=== PATIENT | female | born 1965 | race Caucasian/White ===

== ENCOUNTER 2017-07-27 13:22 | Inpatient (IN) | payer SELFPAY ==
[2017-07-27] VITALS (14 sets, daily range): BP systolic 125–278; BP diastolic 66–150; PULSE 75–102; RESP 18–24; TEMP 97.7–98.7; O2SAT 94–98
[~2017-07-27] VITALS: Ht 165.1 cm; Wt 114.0 kg
[~2017-07-27 13:22] MED LIST: CIPR500T2 PO; GLUC1000 PO; HYDR-3533 PO; LISI-366 PO; METH750T2 PO; TRAM50TA PO; ZOFR4TAB3 SL
[2017-07-27] MEDS ORDERED: SODIUM CHLOR 0.9% 1000 ML INJ 1,000 ML IV SCH ×2 (13:47→18:16)
[2017-07-27] MEDS ORDERED: ONDANSETRON HCL 4 MG/2 ML VIAL IVP ONE (14:00)
--- NOTE | 2017-07-27 14:07 | PD ---
HPI Chief Complaint: Pain: Acute or Chronic Time Seen by Provider: 13:39 Travel History International Travel<30 days: No Contact w/Intl Traveler<30days: No Traveled to known affect area: No History of Present Illness HPI This is a 52-year-old female who presents to the emergency department having had onset of severe nausea and vomiting 11 PM last night associated with pain and discomfort in her chest and epigastrium, constant, moderate severity, nonradiating. The patient denies headache. She denies fevers or chills. She' s never had symptoms like this before. She says she was vomiting this morning when she woke up and dry heaving. PFSH Past Medical History Cardiovascular Problems: Yes (HTN) Diabetes: Yes Patient Takes Glucophage: No Diminished Hearing: No Hypertension: Yes ?: Not Tubal Ligation: Yes Past Surgical History Section: Yes Cholecystectomy: Yes Other Surgery: Yes (BOTH UNDERARMS HX BOILS) Social History Alcohol Use: Yes (socially mix drinks, beer or wine) Tobacco Use: Yes (1 PPD) Substance Use: No Allergies-Medications (Allergen,Severity, Reaction): Coded Allergies: cephalexin (Unverified Allergy, Severe, 06/30/17) Reported Meds & Prescriptions Reported Meds & Active Scripts Active No Active Prescriptions or Reported Medications Review of Systems Except as stated in HPI: all other systems reviewed are Neg Physical Exam Narrative GENERAL: Pale, ill-appearing SKIN: Focused skin assessment warm and dry. HEAD: Atraumatic. Normocephalic. EYES: Pupils equal and round. No injection or drainage. ENT: Moist mucous membranes NECK: Trachea midline. CARDIOVASCULAR: Regular rate and rhythm. No murmur appreciated. RESPIRATORY: Clear to auscultation. Breath sounds equal bilaterally. GASTROINTESTINAL: Abdomen soft, tender to palpation in the epigastrium and right upper quadrant. MUSCULOSKELETAL: No obvious deformities. NEUROLOGICAL: Awake and alert. No obvious cranial nerve deficits. Moving all extremities. PSYCHIATRIC: Appropriate mood and affect; insight and judgment normal. Data Data Last Documented VS Vital Signs Date Time Temp Pulse Resp B/P (MAP) Pulse Ox O2 Delivery O2 Flow Rate FiO2 07/27/17 16:30 183/77 (112) 07/27/17 16:13 82 07/27/17 13:26 98.7 24 98 Orders Orders Complete Blood Count With Diff (07/27/17 13:47) Comprehensive Metabolic Panel (07/27/17 13:47) Lipase (07/27/17 13:47) Lactic Acid (07/27/17 13:47) Urinalysis - C+S If Indicated (07/27/17 13:47) Iv Access Insert/Monitor (07/27/17 13:47) Ecg Monitoring (07/27/17 13:47) Oximetry (07/27/17 13:47) Ondansetron Inj (Zofran Inj) (07/27/17 14:00) Sodium Chlor 0.9% 1000 Ml Inj (Ns 1000 M (07/27/17 13:47) Sodium Chloride 0.9% Flush (Ns Flush) (07/27/17 14:00) Ed Urine Pregnancytest Poc (07/27/17 13:47) Troponin I (07/27/17 13:47) Electrocardiogram (07/27/17 ) Labetalol Inj (Trandate Inj) (07/27/17 14:15) Promethazine Inj (Phenergan Inj) (07/27/17 14:30) Hydralazine Inj (Apresoline Inj) (07/27/17 15:30) Ondansetron Inj (Zofran Inj) (07/27/17 15:30) Morphine Inj (Morphine Inj) (07/27/17 15:45) Chest, Single Ap (07/27/17 ) Aspirin Chew (Aspirin Chew) (07/27/17 16:00) Nitroglycerin-D5w 50 Mg/250 Ml (Nitrogly (07/27/17 15:57) Magnesium (Mg) (07/27/17 15:57) Prothrombin Time / Inr (Pt) (07/27/17 15:57) Act Partial Throm Time (Ptt) (07/27/17 15:57) B-Type Natriuretic Peptide (07/27/17 15:57) Oxygen Administration (07/27/17 15:57) Sodium Chlor 0.9% 1000 Ml Inj (Ns 1000 M (07/27/17 15:57) Sodium Chloride 0.9% Flush (Ns Flush) (07/27/17 16:00) Nitroglycerin Sl (Nitrostat Sl) (07/27/17 15:57) Nitroglycerin-D5w 50 Mg/250 Ml (Nitrogly (07/27/17 16:00) Heparin Inj (Heparin Inj) (07/27/17 15:57) Consult Nephrology (07/27/17 ) Admit Order (Ed Use Only) (07/27/17 16:32) Labs Laboratory Tests Test 07/27/17 14:00 07/27/17 14:20 White Blood Count 13.5 TH/MM3 Red Blood Count 4.71 MIL/MM3 Hemoglobin 13.7 GM/DL Hematocrit 40.3 % Mean Corpuscular Volume 85.6 FL Mean Corpuscular Hemoglobin 29.1 PG Mean Corpuscular Hemoglobin Concent 34.1 % Red Cell Distribution Width 14.5 % Platelet Count 191 TH/MM3 Mean Platelet Volume 9.9 FL Neutrophils (%) (Auto) 83.5 % Lymphocytes (%) (Auto) 9.3 % Monocytes (%) (Auto) 5.6 % Eosinophils (%) (Auto) 0.8 % Basophils (%) (Auto) 0.8 % Neutrophils # (Auto) 11.2 TH/MM3 Lymphocytes # (Auto) 1.2 TH/MM3 Monocytes # (Auto) 0.8 TH/MM3 Eosinophils # (Auto) 0.1 TH/MM3 Basophils # (Auto) 0.1 TH/MM3 CBC Comment AUTO DIFF Differential Comment AUTO DIFF CONFIRMED Blood Urea Nitrogen 45 MG/DL Creatinine 3.06 MG/DL Random Glucose 216 MG/DL Total Protein 7.2 GM/DL Albumin 3.1 GM/DL Calcium Level 10.5 MG/DL Alkaline Phosphatase 94 U/L Aspartate Amino Transf (AST/SGOT) 15 U/L Alanine Aminotransferase (ALT/SGPT) 15 U/L Total Bilirubin 0.5 MG/DL Sodium Level 133 MEQ/L Potassium Level 4.5 MEQ/L Chloride Level 103 MEQ/L Carbon Dioxide Level 18.5 MEQ/L Anion Gap 12 MEQ/L Estimat Glomerular Filtration Rate 16 ML/MIN Troponin I 1.03 NG/ML Lipase 212 U/L Lactic Acid Level 1.3 mmol/L MDM Medical Decision Making Medical Screen Exam Complete: Yes Emergency Medical Condition: Yes Interpretation(s) Leukocytosis with 83% neutrophils BUN is 45 Creatinine is 3 Lactic acid is 1.3 Troponin is 1.0 EKG: Initial EKG demonstrates T-wave inversions in the lateral leads with borderline [address] elevation in V1 and V2 not meeting criteria for STEMI Repeat EKG demonstrates [address] elevation in lead V2 and 1 mm in V3 with biphasic T waves concerning for dynamic changes and ongoing ischemia Differential Diagnosis Gastritis, gastroenteritis, myocardial infarction, aortic dissection Narrative Course This is a 52-year-old female who presents to the emergency department with vomiting and chest pain. She is ill-appearing on arrival. Initial EKG demonstrated some ischemia but no STEMI criteria. She was found to have markedly elevated blood pressure with a systolic of 278 and a map of 192. She was treated with 20 mg of IV labetalol, 10 mg of IV hydralazine, Zofran and Phenergan. Labs are obtained which demonstrated a troponin of 1 and renal insufficiency which appears at least partially acute with an elevated BUN. An EKG was repeated at the time of troponin results and at that time demonstrated dynamic EKG changes. I spoke to Dr. Scott who requested I call a STEMI alert and activate the [facility] [employer]. Dr. Scott came to see the patient in the emergency department. Patient was given aspirin, heparin, started on a nitro drip and given morphine. She was transferred to the [facility]. I discussed with Dr. Don the management of this patient. Critical Care Narrative Aggregate critical care time was 45 minutes. Time to perform other separately billable procedures was not included in the critical care time. My time did not include minutes spent treating any other patients simultaneously or on activities that did not directly contribute to the patient's treatment. The services I provided to this patient were to treat and/or prevent clinically significant deterioration that could result in: disability, I provided critical care services requiring my management, as noted below: Chart data review, documentation time, medication orders and management, vital sign assessments/reviewing monitor data, ordering and reviewing lab tests, ordering and interpreting/reviewing x-rays and diagnostic studies, care of the patient and discussion of the patient with the admitting physicians. Physician Communication Physician Communication Discussed with Dr. Scott and Dr. Don Diagnosis Primary Impression: STEMI (ST elevation myocardial infarction) Qualified Codes: I21.3 - ST elevation (STEMI) myocardial infarction of unspecified site Admitting Information Admitting Physician Requests: Admit Scripts No Active Prescriptions or Reported Meds Jazmín Fu MD Jul 27, 2017 14:07
[2017-07-27] MEDS ORDERED: LABETALOL HCL 100 MG/20 ML VIAL IV PUSH ONE (14:15)
[2017-07-27] MEDS ORDERED: PROMETHAZINE INJ 25 MG/ML VIAL IM ONE (14:30)
[2017-07-27 15:12] LABS: AUTOMATED NEUTROPHIL # 11.2 TH/MM3 (1.8-7.7); BASOPHIL # 0.1 TH/MM3 (0-0.2); BASOPHIL % 0.8 % (0.0-2.0); EOSINOPHIL # 0.1 TH/MM3 (0-0.4); EOSINOPHIL % 0.8 % (0.0-4.0); HEMATOCRIT 40.3 % (35.0-46.0); LYMPH % 9.3 % (9.0-44.0); LYMPHOCYTE # 1.2 TH/MM3 (1.0-4.8); MEAN CELL VOLUME 85.6 FL (80.0-100.0); MEAN CORPUSCULAR HEMOGLOBIN 29.1 PG (27.0-34.0); MEAN CORPUSCULAR HGB CONC 34.1 % (32.0-36.0); MONO % 5.6 % (0.0-8.0); NEUT % 83.5 % (16.0-70.0); PLATELET COUNT 191 TH/MM3 (150-450); RED BLOOD COUNT 4.71 MIL/MM3 (4.00-5.30); RED CELL DISTRIBUTION WIDTH 14.5 % (11.6-17.2); WHITE BLOOD COUNT 13.5 TH/MM3 (4.0-11.0)
[2017-07-27 15:16] LABS: HEMO FLAGS AUTO DIFF
[2017-07-27 15:25] LABS: ANION GAP 12 MEQ/L (5-15); AST (GOT) 15 U/L (15-37); BICARBONATE 18.5 MEQ/L (21.0-32.0); BLOOD UREA NITROGEN 45 MG/DL (7-18); CHLORIDE 103 MEQ/L (98-107); GLOMERULAR FILTRATION RATE 16 ML/MIN (>89); POTASSIUM 4.5 MEQ/L (3.5-5.1); SODIUM (NA) 133 MEQ/L (136-145)
[2017-07-27 15:26] LABS: ALT (GPT) 15 U/L (10-53)
[2017-07-27] MEDS ORDERED: ONDANSETRON HCL 4 MG/2 ML VIAL IV PUSH ONE (15:30)
[2017-07-27] MEDS ORDERED: hydrALAZINE HCL 20 MG/ML VIAL IV PUSH ONE (15:30)
[2017-07-27 15:31] LABS: ALKALINE PHOSPHATASE 94 U/L (45-117); TOTAL BILIRUBIN ADULT 0.5 MG/DL (0.2-1.0)
[2017-07-27] MEDS ORDERED: MORPHINE SULFATE 4 MG/ML INJ IV PUSH ONE (15:45)
[2017-07-27] MEDS ORDERED: HEPARIN SODIUM - IV 10,000 UNITS/10 ML VIAL IV STA (15:57)
[2017-07-27] MEDS ORDERED: NITROGLYCERIN 0.4 MG SL 25 TABS/BTL SL STA (15:57)
[2017-07-27] MEDS ORDERED: NITROGLYCERIN-D5W 50 MG/250 ML 250 ML ONE (15:57)
[2017-07-27] MEDS ORDERED: SODIUM CHLOR 0.9% 1000 ML INJ 1,000 ML IV ONE (15:57)
[2017-07-27] MEDS ORDERED: SODIUM CHLORIDE 0.9% FLUSH 10 ML FLUSH IVF PRN (16:00)
[2017-07-27] MEDS ORDERED: NITROGLYCERIN-D5W 50 MG/250 ML 250 ML IV PRN (16:00)
[2017-07-27] MEDS ORDERED: ASPIRIN 81 MG CHEW TAB CHEW ONE (16:00)
[2017-07-27 16:08] LABS: SCAN/DIFF AUTO DIFF CONFIRMED
--- NOTE | 2017-07-27 16:17 | RADRPT ---
EXAM DATE/TIME: 07/27/2017 16:13 [facility] COMPARISON: No previous studies available for comparison. INDICATIONS : Stemi alert. MEDICAL HISTORY : Hypertension. SURGICAL HISTORY : None. ENCOUNTER: Initial ACUITY: 1 day PAIN SCORE: 10/10 LOCATION: Bilateral chest FINDINGS: A single view of the chest demonstrates the lungs to be symmetrically aerated without evidence of mas s, infiltrate or effusion. The cardiomediastinal contours are unremarkable. Osseous structures are intact. CONCLUSION: No acute disease. Rhett Miller MD on July 27, 2017 at 16:14 Board Certified Radiologist. This report was verified electronically.
[2017-07-27] MEDS ORDERED: IOHEXOL 350 MG/ML 100 ML BTL (for Cath Lab) OTHER ONE (16:36)
[2017-07-27] MEDS ORDERED: IOHEXOL 350 MG/ML 50 ML BTL (for Cath Lab) OTHER ONE (16:36)
[2017-07-27] MEDS ORDERED: CLOPIDOGREL 300 MG TAB ONE (17:26)
[2017-07-27] MEDS ORDERED: ASPIRIN 81 MG CHEW TAB ONE (17:26)
[2017-07-27] MEDS ORDERED: LABETALOL HCL 100 MG/20 ML VIAL ONE (17:33)
[2017-07-27] MEDS ORDERED: NIFEdipine 10 MG CAP ONE (17:35)
[2017-07-27] MEDS ORDERED: ONDANSETRON HCL 4 MG/2 ML VIAL ONE (17:37)
--- NOTE | 2017-07-27 18:09 | CATHPROC ---
[facility] HIS Report Study Information Study Number Admission Scheduled Start Study Start [id number] Jul 27 2017 1:22PM 07/27/2017 Jul 27 2017 4:37PM [place] [facility] Cardiac Catheterization Admit Source Facility Department Emergency department [facility] - Hand Spring Repairer Physician and Clinical Staff Initial Rodrigo Maciel Public Health Policy Analyst Michelle Devries,Liza Manley RN Recorder Farhad Villalobos,RT(R) Scrub Mayur Singletary RCIS(BS) Procedures Performed Procedure Location (Site) Vessel Name Coronary Angiograms LCA Left Coronary Coronary Angiograms RCA Right Coronary Drug Eluting Inflatio LAD Prox Left Coronary PTCA LAD Prox Left Coronary Wire insertion Fem Art (right) Femoral Art Equipment Time Media Supervisor Description Size Mfg Part Number Used/Scraped [id number] 17:01 [employer], [employer] ([employer].) PROWATER 180CM 180CM Used *[id number] TRANSDUCER, TRUWAVE [id number] 16:54 LOZANO TURK * Used W/STOCKCOCK *[id number] 17:13 [employer] BALLOON, 2.5 20MM EMERGE MR 2.5 20MM Used *[id number] BALLOON, 2.5 30[place] [id number] 17:26 [employer] 2.5 30MM Used QUANTUM APEX MR *[id number] 17:20 [employer] STENT, SYNERGY 2.5 X 38MM Used *[id number] 17:03 [employer] VL3.5 GUIDE CATHETER RUNWAY FR 6 Used *[id number]-502-10.0- INTRODUCER SET, 16:56 [employer]. FR 5 SC-NT-U-SST Used MICROPUNCTURE, STIFFENED *[id number] 538-476 *[id number] 538-420 *[id number] 17:31 DAIG/ST. DARCY MEDICAL ANGIOSEAL, FR6 VIP FR 6 Used *[id number] 16:54 MEDLINE INDUSTRIES PACK, CCL CUSTOM * Used *[id number] [id number] 16:54 MEDLINE PACER PEN, SKIN DUAL W/ RULER * Used *[id number] 17:14 Axcient 30 KLEVER INDEFLATOR Used *[id number] 17:00 A[employer]ient SHEATH, FR6.5 PRELUDE 11CM FR 6.5 038ACT Used *[id number] 16:54 [employer] MEDICAL WIRE, 3MMJ .035 180CM 180CM Used *[id number] PROBE COVER, STERILE [id number] 16:54 [employer] * Used ULTRASOUND W/ GEL *4966867 [id number] 16:54 NAMIC MANIFOLD, 4 PORT * Used *[id number] 16:54 NYCOMED OMNIPAQUE, 350 MG, 150ML 150ML [id number] Used [id number] 16:54 [employer] BLANKET,WARM AIR CCL * Used *0877507 [id number] 16:54 TERUM[employer] MEDICAL SHEATH, FR4 TERUMO (10CM) FR 4 Used *[id number] Equipment Model, Serial, Lot Number and Expiration Data Description Model Number Serial Number Lot Number Expiration Date BALLOON, 2.5 20MM EMERGE MR [id number] 02-16-2020 STENT, SYNERGY [id number] 12-02-2017 History: Allergies Allergy Reaction cephalexin History: Risk Factors Hypertension Dyslipidemia Yes Yes Diabetes Diabetes Therapy History: Other Current Smoker Method Packs a Day Years Used Pack Years Yes Cigarettes 1 15 15 Labs Hgb (g/dl) Hct (%) WBC (l/cumm) Platelets (thousands) 11.60-17.00 35.00-51.00 4.00-11.00 150.00-450.00 13.7 40.3 13.5 191 Glucose (mg/dl) BUN (mg/dl) Creatinine (mg/dl) BUN:Creatinine (1:x) 74.00-106.00 7.00-18.00 0.50-1.30 10.00-20.00 216 45 3.0 15 Na (meq/l) K (meq/l) 136.00-145.00 3.50-5.10 133 4.5 Troponin I (ng/ml) CPK-MB (ng/ML) 0.02-0.05 0.50-3.60 1.03 Not Drawn Medication Medication Total Dose (Bolus/Oral) Medication Total Dosage/Unit 1% XYLOCAINE 20 mL ASPIRIN 324 mg FENTANYL 50 mcg HEPARIN 1000 units LABETOLOL 20 mg NTG (IC) 950 mcg PLAVIX 600 mg PROCARDIA 10 mg ZOFRAN 4 mg Medications (Bolus/Oral) Medication Time Given Dosage/Unit Administered By Reason 1% XYLOCAINE 07/27/2017 4:52:24 PM 20 mL Jamidar, Humayun 20 mL 1% XYLOCAINE given in lab by Rodrigo Scott in Right Groin via Subcutaneous. Ordered by Rodrigo Mares. HEPARIN 07/27/2017 5:01:35 PM 1000 units Liza Ortiz 1000 units HEPARIN given in lab by Liza Ortiz, BETHANY in Right Antecubital via Peripheral IV. Ordered by Rodrigo Scott. NTG (IC) 07/27/2017 5:06:08 PM 200 mcg Rodrigo Scott 200 mcg NTG (IC) given in lab by Rodrigo Scott via Intra-coronary. Ordered by Rodrigo Scott. NTG (IC) 07/27/2017 5:11:46 PM 200 mcg Rodrigo Scott 200 mcg NTG (IC) given in lab by Rodrigo Scott via Intra-coronary. Ordered by Rodrigo Scott. NTG (IC) 07/27/2017 5:16:25 PM 200 mcg Rodrigo Scott 200 mcg NTG (IC) given in lab by Rodrigo Scott via Intra-coronary. Ordered by Rodrigo Scott. FENTANYL 07/27/2017 5:22:42 PM 50 mcg Liza Ortiz 50 mcg FENTANYL given in lab by Liza Ortiz RN in Right Antecubital via Peripheral IV. Ordered by Rodrigo Scott. NTG (IC) 07/27/2017 5:23:36 PM 350 mcg Rodrigo Scott 350 mcg NTG (IC) given in lab by Rodrigo Scott via Intra-coronary. Ordered by Rodrigo Scott. LABETOLOL 07/27/2017 5:35:22 PM 20 mg Darlyn Devriesnifer 20 mg LABETOLOL given in lab by Michelle Devries, BETHANY in Right Antecubital via Peripheral IV. Ordered b y Rodrigo Scott. ASPIRIN 07/27/2017 5:36:34 PM 324 mg Kayce Michelle 324 mg ASPIRIN given in lab by Michelle Devries, RN via Oral. Ordered by Rodrigo Scott. PLAVIX 07/27/2017 5:37:42 PM 600 mg Kayce, Michelle 600 mg PLAVIX given in lab by Michelle Devries, BETHANY via Oral. Ordered by Rodrigo Scott. ZOFRAN 07/27/2017 5:38:17 PM 4 mg Michelle Devries 4 mg ZOFRAN given in lab by Michelle Devries, BETHANY in Right Antecubital via Peripheral IV. Ordered by Rodrigo Puckett. PROCARDIA 07/27/2017 5:39:39 PM 10 mg Michelle Devries 10 mg PROCARDIA given in lab by Michelle Devries, BETHANY via Sublingual. Ordered by Rodrigo Scott. Medication (Drip) Medication Time Given Dosage/Unit Concentration/Unit Diluent (ml) Solution NITROGLYCERIN DRIP 07/27/2017 4:47:45 PM 20 mcg/min 50 mg 250 D5W Patient arrived on 20 mcg/min NITROGLYCERIN DRIP given by Rodrigo Scott in Right Antecubital via P eripheral IV. Pump/Drip Flow = 6 ml/hr using D5W with a concentration of 50 mg in 250 ml. Ordered by Rodrigo Scott. NITROGLYCERIN DRIP 07/27/2017 5:02:07 PM 100 mcg/min 50 mg 250 D5W 100 mcg/min NITROGLYCERIN DRIP given in lab by Liza Ortiz RN in Right Antecubital via Peripheral IV. Pump/Drip Flow = 30 ml/hr using D5W with a concentration of 50 mg in 250 ml. Ordered by Rodrigo Scott. Reason: As per physicians v erbal order. increased per Dr. Scott NITROGLYCERIN DRIP 07/27/2017 5:42:13 PM 50 mcg/min 50 mg 250 D5W 50 mcg/min NITROGLYCERIN DRIP given in lab by Michelle Devries, BETHANY via Peripheral IV. Pump/Drip Flow = 15 ml/hr using D5W with a concentration of 50 mg in 250 ml. Ordered by Rodrigo Scott. per dr. Scott NITROGLYCERN DRIP 07/27/2017 5:46:11 PM 0 units/hr 0 STOPPED 0 units/hr NITROGLYCERN DRIP STOPPED given in lab by Michelle Devries, BETHANY. Pump/Drip Flow = 0 ml/hr us ing [Solution Name]. Ordered by Rodrigo Scott. stopped per Dr. Scott Initial Case Assessment Cardiovascular HR Rhythm NIBP Chest Pain 80 sr 205/111 0 Edema Present Skin color Skin None Normal Warm Dry Circulatory - Right Pulses Dorsalis Pedis Femoral 3 3 Scale (0,1,2,3,4,d) Circulatory - Left Pulses Dorsalis Pedis Femoral 3 3 Scale (0,1,2,3,4,d) Neurological State Oriented to time-place- Alert Moves all extremities person Respiration - General Respiration Rate SpO2 (%) O2 (lpm) (B/min) 18 100 2 Final Case Assessment Cardiovascular HR Rhythm NIBP Chest Pain 97 sr 201/117 0 Edema Present Skin color Skin None Normal Warm Dry Circulatory - Right Pulses Dorsalis Pedis Femoral 2 2 Scale (0,1,2,3,4,d) Circulatory - Left Pulses Dorsalis Pedis Femoral 2 2 Scale (0,1,2,3,4,d) Neurological State Oriented to time-place- Alert Moves all extremities person Respiration - General Respiration Rate SpO2 (%) O2 (lpm) (B/min) 18 98 2 Chronological Log Time Study Chronological Log 16:36:45 Patient arrived via Bed. 16:36:46 Patient Name, D.O.B, / Armband Verified By R.N. 16:36:48 Consent signed by the physician and the patient and verified by the Hand Spring Repairer staff. 16:36:49 Pre-op and post- op instructions given; patient acknowledges understanding of instructions. 16:44:25 Reference ECG taken 16:46:01 Verbal Stimulation=2 Physical Stimulation=2 Airway=2 Respiration=2 TOTAL=8. (0=absent, 1=li mited, 2=present) 16:46:42 Presedation assessment performed by Hand Spring Repairer RN. 16:46:44 Patient has been NPO for More than 6Hrs. 16:46:47 Skin Breakdown-none present per patient. Vitals capture started with the following parameters, Patient=Adult, Interval=5 min, Initial Pr hcgoue=208 mmHg, 16:46:56 Deflation Rate=5 mmHg, Cuff placed on Left Arm 16:47:21 A # 20 IV was noted in the Antecubital (right). Grade = 0 Patient arrived on 20 mcg/min NITROGLYCERIN DRIP given by Rodrigo Scott in Right Antecubital via Peripheral IV. 16:47:45 Pump/Drip Flow = 6 ml/hr using D5W with a concentration of 50 mg in 250 ml. Ordered by Rodrigo Scott. 16:48:04 History and physical on the chart or being dictated. Assessment: Initial Case, HR=80 BPM, Rhythm=sr, WXKR=592/111 mmhg, Chest Pain=0, Edema=None, Co tenzin=Normal, Skin = Warm, Dry Right Pulses: Bautista Ped=3, Femoral=3 16:48:06 Left Pulses: Bautista Ped=3, Femoral=3 Neurological: State=Alert, Ox3, CRUMP Respiration: Resp=18 B/min, XdX3=044 %, O2=2 lpm 16:48:18 Pressure channel 1 zeroed. 16:48:38 HR=83 bpm, BUTR=745/111 mmhg, JpU4=909.0 %, Resp=13 B/min, Chavez=2 16:50:16 MD arrived. Time Out. Correct patient, correct procedure,correct physician, ,power injector not loaded with contrast with surgical 16:51:40 team present. Time Out Concurred by MD, individual staff and MECHANICAL APPLICATIONS ENGINEER in procedure. Not loaded at t his time. 16:52:10 Presedation re-assessment performed by Hand Spring Repairer RN. 16:52:11 Case Start 16:52:12 Verbal Stimulation=2 Physical Stimulation=2 Airway=2 Respiration=2 TOTAL=8. (0=absent, 1=li mited, 2=present) 20 mL 1% XYLOCAINE given in lab by Rodrigo Scott in Right Groin via Subcutaneous. Ordered by Sonia, 16:52:24 Rodrigo. 16:52:54 HR=87 bpm, JSYB=337/95 mmhg, FaP3=823.0 %, Resp=18 B/min, Chavez=2 16:53:30 Access site was Right Femoral Artery. A INTRODUCER SET, MICROPUNCTURE, STIFFENED FR 5 was advanced into the Fem Art (right) using the 16:53:36 Percutaneous technique. A SHEATH, FR4 TERUMO (10CM) FR 4 was exchanged in the Fem Art (right). This was necessary in or brenda to 16:56:01 accomodate a larger catheter. 16:57:40 Activated Clotting Time Drawn A JL 4.0 INFINITI CATHETER FR 4 was advanced over a wire. OMNIPAQUE, 350 MG, 150ML 150ML was us ed for 16:57:51 injections. 16:57:55 HR=86 bpm, JWUJ=977/92 mmhg, QsK7=868.0 %, Resp=13 B/min, Chavez=2 Recorded Pressure: Ao, HR=82, Condition=Condition 1 16:57:55 (Aorta) Ao 190/92/133 16:58:07 The LCA was injected and visualized at various angles. OMNIPAQUE, 350 MG, 150ML 150ML used . 16:59:17 Catheter was removed A 3DRC INFINITI CATHETER FR 4 was advanced over a wire. OMNIPAQUE, 350 MG, 150ML 150ML was used for 16:59:19 injections. 17:00:43 The RCA was injected and visualized at various angles. OMNIPAQUE, 350 MG, 150ML 150ML used . 17:01:22 ACT (Normal Range 90-180) = 242 1000 units HEPARIN given in lab by Liza Ortiz RN in Right Antecubital via Peripheral IV. O rdered by Sonia, 17:01:35 Rodrigo. 17:01:57 Catheter was removed A SHEATH, FR6.5 PRELUDE 11CM FR 6.5 was exchanged in the Fem Art (right). This was necessary in order to 17:02:02 accomodate a larger catheter. 100 mcg/min NITROGLYCERIN DRIP given in lab by Liza Ortiz, BETHANY in Right Antecubital via Gin pheral IV. 17:02:07 Pump/Drip Flow = 30 ml/hr using D5W with a concentration of 50 mg in 250 ml. Ordered by Rodrigo Crowe. Reason: As per physicians verbal order. increased per Dr. Scott 17:02:48 HR=86 bpm, LRZB=365/113 mmhg, FqZ4=790.0 %, Resp=16 B/min, Chavez=2 A VL3.5 GUIDE CATHETER RUNWAY FR 6 was advanced over a wire. OMNIPAQUE, 350 MG, 150ML 150ML was used for 17:02:57 injections. 17:05:46 A WIRE, ASAHI PROWATER 180CM 180CM was inserted via Fem Art (right). 17:06:08 200 mcg NTG (IC) given in lab by Rodrigo Scott via Intra-coronary. Ordered by Nidia Scott. 17:07:45 HR=89 bpm, FWJE=118/101 mmhg, SpO2=99.0 %, Resp=25 B/min, Chavez=2 17:11:21 Interventional wire has crossed the lesion 17:11:46 200 mcg NTG (IC) given in lab by Rodrigo Scott via Intra-coronary. Ordered by Nidia Scott. 17:12:46 HR=94 bpm, BDUG=977/103 mmhg, SpO2=98.0 %, Resp=18 B/min, Chavez=2 A BALLOON, 2.5 20MM EMERGE MR 2.5 20MM was inserted over WIRE, ASAHI PROWATER 180CM 180CM via t he LAD 17:13:51 Prox. A BALLOON, 2.5 20MM EMERGE MR 2.5 20MM over a WIRE, ASAHI PROWATER 180CM 180CM in the LAD Prox was 17:14:17 inflated using a 30 KLEVER INDEFLATOR at 6 klever for 30 sec. A BALLOON, 2.5 20MM EMERGE MR 2.5 20MM over a WIRE, ASAHI PROWATER 180CM 180CM in the LAD Prox was 17:15:08 inflated using a 30 KLEVER INDEFLATOR at 6 klever for 20 sec. A BALLOON, 2.5 20MM EMERGE MR 2.5 20MM over a WIRE, ASAHI PROWATER 180CM 180CM in the LAD Prox was 17:15:43 inflated using a 30 KLEVER INDEFLATOR at 8 klever for 25 sec. 17:16:25 200 mcg NTG (IC) given in lab by Rodrigo Scott via Intra-coronary. Ordered by Nidia Scott. A BALLOON, 2.5 20MM EMERGE MR 2.5 20MM over a WIRE, ASAHI PROWATER 180CM 180CM in the LAD Prox was 17:17:11 inflated using a 30 KLEVER INDEFLATOR at 6 klever for 20 sec. 17:17:45 HR=95 bpm, AHCZ=277/105 mmhg, SpO2=98.0 %, Resp=18 B/min, Chavez=2 17:19:57 Balloon Removed. A STENT, SYNERGY 2.5 X 38MM was advanced through a VL3.5 GUIDE CATHETER RUNWAY FR 6 over a WIRE , ASAHI 17:21:07 PROWATER 180CM 180CM. A STENT, SYNERGY 2.5 X 38MM was deployed using a 30 KLEVER INDEFLATOR at 13 atmospheres for 25 sec onds in the 17:22:23 LAD Prox. 50 mcg FENTANYL given in lab by Liza Ortiz, RN in Right Antecubital via Peripheral IV. Orde red by Sonia 17:22:42 Rodrigo. 17:22:46 HR=91 bpm, TFVJ=416/117 mmhg, SpO2=97.0 %, Resp=16 B/min, Chavez=2 17:23:36 350 mcg NTG (IC) given in lab by Rodrigo Scott via Intra-coronary. Ordered by Nidia Scott. 17:25:44 Delivery device removed A BALLOON, 2.5 30MM NC QUANTUM APEX MR 2.5 30MM was inserted over WIRE, ASAHI PROWATER 180CM 18 0CM 17:25:52 via the LAD Prox. A BALLOON, 2.5 30MM NC QUANTUM APEX MR 2.5 30MM over a WIRE, ASAHI PROWATER 180CM 180CM in the LAD 17:26:17 Prox was inflated using a 30 KLEVER INDEFLATOR at 14 klever for 25 sec. 17:27:47 HR=97 bpm, IGUF=053/113 mmhg, SpO2=96.0 %, Resp=18 B/min, Chavez=2 A BALLOON, 2.5 30MM NC QUANTUM APEX MR 2.5 30MM over a WIRE, ASAHI PROWATER 180CM 180CM in the LAD 17:27:47 Prox was inflated using a 30 KLEVER INDEFLATOR at 15 klever for 30 sec. 17:28:06 Balloon Removed. 17:29:10 Wire removed 17:30:03 Catheter was removed 17::44 An injection in the Fem Art (right) was made through the SHEATH, FR6.5 PRELUDE 11CM FR 6.5. 17:31:11 ANGIOSEAL, FR6 VIP FR 6 placement in the Fem Art (right) 17:32:52 HR=97 bpm, GXAZ=540/104 mmhg, SpO2=98.0 %, Resp=14 B/min, Chavez=2 20 mg LABETOLOL given in lab by Michelle Devries, BETHANY in Right Antecubital via Peripheral IV. Ord ered by Sonia, 17:35:22 Rodrigo. 17:36:34 324 mg ASPIRIN given in lab by Michelle Devries, BETHANY via Oral. Ordered by Rodrigo Scott. Assessment: Final Case, HR=97 BPM, Rhythm=sr, TKXR=561/117 mmhg, Chest Pain=0, Edema=None, [place] r=Normal, Skin = Warm, Dry Right Pulses: Bautista Ped=2, Femoral=2 17:37:14 Left Pulses: Bautista Ped=2, Femoral=2 Neurological: State=Alert, Ox3, CRUMP Respiration: Resp=18 B/min, SpO2=98 %, O2=2 lpm 17:37:42 600 mg PLAVIX given in lab by Michelle Devries, BETHANY via Oral. Ordered by Rodrigo Scott. 17:37:51 HR=94 bpm, ZXJO=902/117 mmhg, SpO2=98.0 %, Resp=18 B/min, Chavez=2 17:38:05 Catheter(s) removed without difficulty 4 mg ZOFRAN given in lab by Michelle Devries, BETHANY in Right Antecubital via Peripheral IV. Ordered by Sonia, 17:38:17 Rodrigo. 17:39:39 10 mg PROCARDIA given in lab by Michelle Devries, BETHANY via Sublingual. Ordered by Kevin Scott. 17:39:44 Vitals capture stopped. Vitals capture started with the following parameters, Patient=Adult, Interval=5 min, Initial Pr vnrmoc=091 mmHg, 17:39:45 Deflation Rate=5 mmHg, Cuff placed on Left Arm 17:39:49 Case End 17:40:33 HR=81 bpm, SPCC=652/63 mmhg, SpO2=98.0 %, Resp=20 B/min, Chavez=2 17:40:48 Vitals capture stopped. Vitals capture started with the following parameters, Patient=Adult, Interval=5 min, Initial P jthyoak=289 mmHg, 17:40:49 Deflation Rate=5 mmHg, Cuff placed on Left Arm 17:41:28 HR=80 bpm, ZDTG=587/58 mmhg, SpO2=98.0 %, Resp=14 B/min, Chavez=2 50 mcg/min NITROGLYCERIN DRIP given in lab by Michelle Devries, RN via Peripheral IV. Pump/Drip Flow = 15 ml/hr 17:42:13 using D5W with a concentration of 50 mg in 250 ml. Ordered by Rodrigo Scott. per dr. Phoebe kwon 17:45:12 Vitals capture stopped. Vitals capture started with the following parameters, Patient=Adult, Interval=5 min, Initial P ejuvltp=166 mmHg, 17:45:13 Deflation Rate=5 mmHg, Cuff placed on Left Arm 17:45:56 LDLX=327/54 mmhg, Chavez=2 0 units/hr NITROGLYCERN DRIP STOPPED given in lab by Michelle Devries, BETHANY. Pump/Drip Flow = 0 m l/hr using 17:46:11 [Solution Name]. Ordered by Rodrigo Scott. stopped per Dr. Scott 17:50:21 Vitals capture stopped. End Study - Contrast Media Used In Study Contrast Total Opened (mL) Total Used (mL) Total Wasted (mL) Omnipaque 125 125 0 End Study - Maximum Contrast Load Max Contrast Load (mL) 175.0 End Study - Radiation Exposure Fluoro Time (minutes) 10.1 End Study - Patient Disposition Complications Transferred To Interventional Outcome No Telemetry Bed successful
[2017-07-27] MEDS ORDERED: oxyCODONE/ACETAMINOPHEN 10 MG/325 MG TAB PO PRN (18:30)
[2017-07-27] MEDS ORDERED: BACITRACIN OINT 0.9 GM PKT TOP ONE (18:30)
[2017-07-27] MEDS ORDERED: ACETAMINOPHEN 325 MG TAB PO PRN (18:30)
[2017-07-27] MEDS ORDERED: ATROPINE SULFATE 1 MG/ML VIAL IV PUSH PRN (18:30)
[2017-07-27] MEDS ORDERED: MISC INFORMATION XX ONE (18:30)
[2017-07-27] MEDS ORDERED: SODIUM CHLOR 0.9% 250 ML INJ 250 ML IV PRN (18:30)
[2017-07-27] MEDS: SODIUM CHLOR 0.9% 1000 ML INJ 1,000 ML IV SCH (18:30)
[2017-07-27] MEDS ORDERED: oxyCODONE/ACETAMINOPHEN 5 MG/325 MG TAB PO PRN (18:30)
[2017-07-27] MEDS ORDERED: DEXTROSE 50% IN WATER 50 ML VIAL(D50) IV PUSH PRN (19:15)
[2017-07-27] MEDS ORDERED: GLUCAGON 1 MG/ML VIAL OTHER PRN (19:15)
[2017-07-27] MEDS: METOPROLOL TARTRATE 25 MG TAB PO SCH (20:32)
[2017-07-27] MEDS ORDERED: ATORVASTATIN 10 MG TAB PO SCH (21:00)
[2017-07-28] VITALS (21 sets, daily range): BP systolic 123–175; BP diastolic 59–89; PULSE 63–79; RESP 16–18; TEMP 98.2–98.4; O2SAT 71–96
[2017-07-28] MEDS: NITROGLYCERIN-DEXTROSE 5% 250 ML for hypertension IV PRN ×2 (00:26→18:43)
[2017-07-28] MEDS: LOW DOSE INSULIN NOVOLOG SUPPLEMENTAL SCALE SQ SCH ×5 (00:59→21:00)
[2017-07-28] MEDS: METOPROLOL TARTRATE 5 MG/5 ML VIAL IV PUSH PRN ×2 (03:24→22:26)
[2017-07-28 07:13] LABS: AUTOMATED NEUTROPHIL # 15.1 TH/MM3 (1.8-7.7); BASOPHIL # 0.1 TH/MM3 (0-0.2); BASOPHIL % 0.6 % (0.0-2.0); EOSINOPHIL % 0.1 % (0.0-4.0); HEMATOCRIT 31.6 % (35.0-46.0); HEMO FLAGS DIFF FINAL; LYMPH % 7.4 % (9.0-44.0); LYMPHOCYTE # 1.3 TH/MM3 (1.0-4.8); MEAN CELL VOLUME 86.4 FL (80.0-100.0); MEAN CORPUSCULAR HEMOGLOBIN 29.6 PG (27.0-34.0); MEAN CORPUSCULAR HGB CONC 34.3 % (32.0-36.0); MONO % 6.9 % (0.0-8.0); PLATELET COUNT 185 TH/MM3 (150-450); RED BLOOD COUNT 3.66 MIL/MM3 (4.00-5.30); RED CELL DISTRIBUTION WIDTH 14.7 % (11.6-17.2); WHITE BLOOD COUNT 17.8 TH/MM3 (4.0-11.0)
[2017-07-28 07:26] LABS: APTT (PATIENT) 23.7 SEC (24.3-30.1); PROTHROMBIN TIME - PATIENT 10.8 SEC (9.8-11.6)
[2017-07-28 07:39] LABS: BICARBONATE 18.4 MEQ/L (21.0-32.0); HDL CHOLESTEROL 46.4 MG/DL (40.0-60.0); POTASSIUM 4.5 MEQ/L (3.5-5.1)
[2017-07-28 07:56] LABS: CKMB 30.4 NG/ML (0.5-3.6)
[2017-07-28] MEDS ORDERED: IOHEXOL 350 MG/ML 50 ML BTL (for Cath Lab) OTHER ONE (08:17)
[2017-07-28] MEDS ORDERED: IOHEXOL 350 MG/ML 100 ML BTL (for Cath Lab) OTHER ONE (08:17)
[2017-07-28] MEDS: ASPIRIN 81 MG CHEW TAB PO SCH (08:23)
[2017-07-28] MEDS: METOPROLOL TARTRATE 25 MG TAB PO SCH ×2 (08:24→21:08)
[2017-07-28] MEDS: CLOPIDOGREL 75 MG TAB PO SCH (08:24)
[2017-07-28] MEDS: SODIUM CHLOR 0.9% 1000 ML INJ 1,000 ML IV SCH ×4 (08:25→22:40)
--- NOTE | 2017-07-28 08:26 | HHI.HP ---
[facility] No Primary Care Physician Admission Diagnosis STEMI Diagnoses: (1) Diabetes Diagnosis: Secondary (2) Hypertension Diagnosis: Principal (3) Hyperlipidemia Diagnosis: Principal (4) Tobacco abuse Diagnosis: Principal (5) Alcohol abuse Diagnosis: Principal (6) STEMI (ST elevation myocardial infarction) Diagnosis: Principal (7) CAD (coronary artery disease) Diagnosis: Principal Chief Complaint: Nausea vomiting, found to have a myocardial infarction Travel History International Travel<30 Days: No Contact w/Intl Traveler <30 Da: No Traveled to Known Affected Are: No History of Present Illness This is a 52-year-old female who presents to the emergency department having had onset of severe nausea and vomiting 11 PM last night associated with pain and discomfort in her chest and epigastrium, constant, moderate severity, nonradiating. The patient denies headache. She denies fevers or chills. She' s never had symptoms like this before. She says she was vomiting this morning when she woke up and dry heaving. Patient states she has not seen a physician at home and does not take any medications at home Review of Systems Constitutional: COMPLAINS OF: Fatigue, DENIES: Diaphoretic episodes, Fever, Weight gain, Weight loss, Chills, Dizziness, Change in appetite Endocrine: DENIES: Abnorml menstrual pattern, Heat/cold intolerance, Polydipsia , Polyuria, Polyphagia Eyes: COMPLAINS OF: Blurred vision, Vision loss, DENIES: Diplopia, Eye inflammation, Eye pain Ears, nose, mouth, throat: DENIES: Tinnitus, Hearing loss, Vertigo, Nasal discharge, Oral lesions Respiratory: DENIES: Apneas, Cough, Snoring, Wheezing Cardiovascular: DENIES: Chest pain, Palpitations, Syncope Gastrointestinal: DENIES: Abdominal pain, Black stools, Bloody stools, Constipation Musculoskeletal: DENIES: Joint pain, Muscle aches, Stiffness, Back pain Integumentary: DENIES: Abnormal pigmentation, Pruritus, Rash, Nail changes, Breast masses Hematologic/lymphatic: DENIES: Bruising, Lymphadenopathy Immunologic/allergic: DENIES: Eczema, Urticaria Neurologic: DENIES: Abnormal gait, Headache, Localized weakness, Paresthesias, Seizures, Speech Problems Psychiatric: COMPLAINS OF: Anxiety, DENIES: Mood changes, Depression, Hallucinations, Agitation, Suicidal Ideation, Homicidal Ideation Past Family Social History Past Medical History Hypertension Diabetes Medical noncompliance High cholesterol Past Surgical History Cholecystectomy tubal ligation section Bilateral axillary boil removal History of multiple eye surgeries Reported Medications Reported Meds & Active Scripts Active No Active Prescriptions or Reported Medications Allergies: Coded Allergies: cephalexin (Unverified Allergy, Severe, 06/30/17) Active Ordered Medications Current Medications Ondansetron HCl (Zofran Inj) 4 mg ONCE ONCE IVP Last administered on 13:59; Start 07/27/17 at 14:00; Stop 07/27/17 at 14:01; Status DC Sodium Chloride 1,000 ml @ 1,000 mls/hr Q1H IV Last administered on 07/27/17 14:15; Start 07/27/17 at 13:47; Stop 07/27/17 at 14:46; Status DC Sodium Chloride (NS Flush) 2 ml UNSCH PRN IV FLUSH FLUSH AFTER USING IV ACCESS ; Start 07/27/17 at 14:00 Labetalol HCl (Trandate Inj) 20 mg ONCE ONCE IV PUSH Last administered on 07/27 14:14; Start 07/27/17 at 14:15; Stop 07/27/17 at 14:16; Status DC Promethazine HCl (Phenergan Inj) 25 mg ONCE ONCE IM Last administered on 14:33; Start 07/27/17 at 14:30; Stop 07/27/17 at 14:31; Status DC Hydralazine HCl (Apresoline Inj) 10 mg ONCE ONCE IV PUSH Last administered on 07/27/17 15:45; Start 07/27/17 at 15:30; Stop 07/27/17 at 15:31; Status DC Ondansetron HCl (Zofran Inj) 4 mg ONCE ONCE IV PUSH Last administered on 15:45; Start 07/27/17 at 15:30; Stop 07/27/17 at 15:31; Status DC Morphine Sulfate (Morphine Inj) 4 mg ONCE ONCE IV PUSH Last administered on 15:51; Start 07/27/17 at 15:45; Stop 07/27/17 at 15:46; Status DC Aspirin (Aspirin Chew) 162 mg ONCE ONCE CHEW Last administered on 07/27/17 15 :54; Start 07/27/17 at 16:00; Stop 07/27/17 at 16:01; Status DC Nitroglycerin/ Dextrose 250 ml @ As Directed STK-MED ONCE .ROUTE ; Start at 15:57; Stop 07/27/17 at 15:58; Status DC Sodium Chloride 1,000 ml @ 0 mls/hr Q0M ONCE IV Last administered on 16:56; Start 07/27/17 at 15:57; Stop 07/27/17 at 15:59; Status DC Sodium Chloride (NS Flush) 2 ml UNSCH PRN IVF FLUSH AFTER USING IV ACCESS; Start 07/27/17 at 16:00 Nitroglycerin (Nitrostat Sl) 0.4 mg NOW STAT SL Last administered on 16:13; Start 07/27/17 at 15:57; Stop 07/27/17 at 15:59; Status DC Nitroglycerin/ Dextrose 250 ml @ 3 mls/hr TITRATE PRN IV for angina or ST elevation Last administered on 07/27/17 16:13; Start 07/27/17 at 16:00; Stop at 22:35; Status DC Heparin Sodium (Porcine) (Heparin Inj) 6,300 units NOW STAT IV Last administered on 07/27/17 16:17; Start 07/27/17 at 15:57; Stop 07/27/17 at 15:59 ; Status DC Fentanyl Citrate (fentaNYL INJ) 100 mcg STK-MED ONCE .ROUTE Last administered on 07/27/17 17:22; Start 07/27/17 at 17:21; Stop 07/27/17 at 17:22; Status DC Clopidogrel Bisulfate (Plavix) 600 mg STK-MED ONCE .ROUTE Last administered on 07/27/17 17:37; Start 07/27/17 at 17:26; Stop 07/27/17 at 17:27; Status DC Aspirin (Aspirin Chew) 324 mg STK-MED ONCE .ROUTE Last administered on 17:36; Start 07/27/17 at 17:26; Stop 07/27/17 at 17:27; Status DC Labetalol HCl (Trandate Inj) 100 mg STK-MED ONCE .ROUTE Last administered on 17:35; Start 07/27/17 at 17:33; Stop 07/27/17 at 17:34; Status DC Nifedipine (Procardia) 10 mg STK-MED ONCE .ROUTE Last administered on 17:39; Start 07/27/17 at 17:35; Stop 07/27/17 at 17:36; Status DC Ondansetron HCl (Zofran Inj) 4 mg STK-MED ONCE .ROUTE Last administered on 07/27 17:38; Start 07/27/17 at 17:37; Stop 07/27/17 at 17:38; Status DC Sodium Chloride 1,000 ml @ 100 mls/hr Q10H IV ; Start 07/27/17 at 18:16; Stop 07/27/17 at 18:57; Status DC Acetaminophen (Tylenol) 325 mg Q4H PRN PO PAIN SCALE 1 TO 2; Start 07/27/17 at 18:30 Oxycodone/ Acetaminophen (Percocet 5-325 Mg) 1 tab Q4H PRN PO PAIN SCALE 3 TO 5; Start 07/27/17 at 18:30 Oxycodone/ Acetaminophen (Percocet 10-325 Mg) 1 tab Q4H PRN PO PAIN SCALE 6 TO 10; Start 07/27/17 at 18:30 Temazepam (Restoril) 15 mg HS PRN PO SLEEP; Start 07/27/17 at 18:30 Aspirin (Aspirin Chew) 81 mg DAILY PO ; Start 07/28/17 at 09:00 Clopidogrel Bisulfate (Plavix) 75 mg DAILY PO ; Start 07/28/17 at 09:00 Miscellaneous Information 1 ONCE ONCE XX Last administered on 07/27/17 18:30 ; Start 07/27/17 at 18:30; Stop 07/27/17 at 18:31; Status DC Atropine Sulfate (Atropine Inj) 0.5 mg UNSCH PRN IV PUSH VAGAL REPONSE; Start 07/27/17 at 18:30 Sodium Chloride 250 ml @ 500 mls/hr ONCE PRN IV VAGAL REPONSE; Start 07/27/17 at 18:30; Stop 07/28/17 at 18:29 Ondansetron HCl (Zofran Inj) 4 mg Q4H PRN IV PUSH NAUSEA; Start 07/27/17 at 18: 30 Bacitracin (Bacitracin Oint Packet) 0.9 gm ONCE ONCE TOP ; Start 07/27/17 at 18 :30; Stop 07/27/17 at 18:31; Status DC Metoprolol Tartrate (Lopressor) 50 mg BID PO Last administered on 07/27/17 20: 32; Start 07/27/17 at 21:00 Lisinopril (Prinivil) 5 mg DAILY PO ; Start 07/28/17 at 09:00 Atorvastatin Calcium (Lipitor) 10 mg HS PO Last administered on 07/27/17 20:32 ; Start 07/27/17 at 21:00 Amlodipine Besylate (Norvasc) 10 mg DAILY PO Last administered on 07/27/17 18: 59; Start 07/27/17 at 18:30; Stop 07/27/17 at 22:35; Status DC Sodium Chloride 1,000 ml @ 125 mls/hr Q8H IV Last administered on 07/27/17 18 :30; Start 07/27/17 at 18:30 Dextrose (D50w (Vial) Inj) 50 ml UNSCH PRN IV PUSH HYPOGLYCEMIA - SEE COMMENTS ; Start 07/27/17 at 19:15 Glucagon (Glucagon Inj) 1 mg UNSCH PRN OTHER HYPOGLYCEMIA-SEE COMMENTS; Start 07/27/17 at 19:15 Insulin Aspart (NovoLOG SUPPLEMENTAL SCALE) 1 ACHS SLIDING SCALE SQ Last administered on 07/28/17 00:59; Start 07/27/17 at 21:00 Nitroglycerin/ Dextrose 250 ml @ 6 mls/hr TITRATE PRN IV Blood Pressure Management Last administered on 07/28/17 00:26; Start 07/27/17 at 22:45 Metoprolol Tartrate (Lopressor Inj) 5 mg Q1H PRN IV PUSH SBP > OR = 140 Last administered on 07/28/17 03:24; Start 07/27/17 at 22:45 Amlodipine Besylate (Norvasc) 10 mg ONCE ONCE PO Last administered on 00:22; Start 07/27/17 at 22:45; Stop 07/27/17 at 22:46; Status DC Amlodipine Besylate (Norvasc) 5 mg DAILY PO ; Start 07/28/17 at 09:00 Iohexol (OMNIPAQUE 350 INJ (Optometric Aide)) 100 ml STK-MED ONCE OTHER ; Start at 08:17; Stop 07/28/17 at 08:18; Status DC Iohexol (OMNIPAQUE 350 INJ (Optometric Aide)) 50 ml STK-MED ONCE OTHER ; Start at 08:17; Stop 07/28/17 at 08:18; Status DC Iohexol (OMNIPAQUE 350 INJ (Optometric Aide)) 100 ml STK-MED ONCE OTHER ; Start at 16:36; Stop 07/28/17 at 08:20; Status DC Iohexol (OMNIPAQUE 350 INJ (Optometric Aide)) 50 ml STK-MED ONCE OTHER ; Start at 16:36; Stop 07/28/17 at 08:20; Status DC Family History Tobacco abuse probable hypertension and probable diabetes Social History Smokes a half pack to a pack daily. Drinks alcohol couple times a month Physical Exam Vital Signs Vital Signs Date Time Temp Pulse Resp B/P (MAP) Pulse Ox O2 Delivery O2 Flow Rate FiO2 07/28/17 07:00 79 07/28/17 05:30 98.2 73 18 126/72 (90) 93 07/28/17 00:31 16 07/28/17 00:26 80 184/99 07/27/17 21:46 98.1 82 18 185/104 (131) 96 07/27/17 19:00 98.2 75 18 147/80 (102) 94 07/27/17 18:51 76 07/27/17 18:51 97.7 75 18 125/66 (85) 95 07/27/17 18:42 18 07/27/17 16:57 07/27/17 16:30 183/77 (112) 07/27/17 16:15 201/107 (138) 07/27/17 16:13 82 249/116 07/27/17 16:00 228/107 (147) 07/27/17 15:45 249/116 (160) 07/27/17 15:15 250/115 (160) 07/27/17 15:00 233/107 (149) 07/27/17 14:45 232/99 (143) 07/27/17 14:30 254/116 (162) 07/27/17 14:15 239/103 (148) 07/27/17 14:01 260/123 (168) 07/27/17 13:26 98.7 102 24 278/150 (192) 98 Physical Exam GENERAL: This is a well-nourished, well-developed patient, in no apparent distress. SKIN: No rashes, ecchymoses or lesions. Cool and dry. HEAD: Atraumatic. Normocephalic. No temporal or scalp tenderness. EYES: Pupils equal round and reactive. Extraocular motions intact. No scleral icterus. No injection or drainage. ENT: Nose without bleeding, purulent drainage or septal hematoma. Throat without erythema, tonsillar hypertrophy or exudate. Uvula midline. Airway patent. Tongue is midline NECK: Trachea midline. No JVD or lymphadenopathy. Supple, nontender, no meningeal signs. CARDIOVASCULAR: Regular rate and rhythm without murmurs, gallops, or rubs. S1 and S2 no S3 or S4 no heave or thrill or rub or gallop RESPIRATORY: Clear to auscultation. Breath sounds equal bilaterally. No wheezes , rales, or rhonchi. GASTROINTESTINAL: Abdomen soft, non-tender, nondistended. No hepato-splenomegaly , or palpable masses. No guarding. Obese MUSCULOSKELETAL: Extremities without clubbing, cyanosis, or edema. No joint tenderness, effusion, or edema noted. No calf tenderness. Negative Homans sign bilaterally. NEUROLOGICAL: Awake and alert. Cranial nerves II through XII intact. Motor and sensory grossly within normal limits. Five out of 5 muscle strength in all muscle groups. Normal speech. Laboratory Laboratory Tests Test 07/27/17 14:00 07/27/17 14:20 07/28/17 05:25 White Blood Count 13.5 17.8 Red Blood Count 4.71 3.66 Hemoglobin 13.7 10.8 Hematocrit 40.3 31.6 Mean Corpuscular Volume 85.6 86.4 Mean Corpuscular Hemoglobin 29.1 29.6 Mean Corpuscular Hemoglobin Concent 34.1 34.3 Red Cell Distribution Width 14.5 14.7 Platelet Count 191 185 Mean Platelet Volume 9.9 10.0 Neutrophils (%) (Auto) 83.5 85.0 Lymphocytes (%) (Auto) 9.3 7.4 Monocytes (%) (Auto) 5.6 6.9 Eosinophils (%) (Auto) 0.8 0.1 Basophils (%) (Auto) 0.8 0.6 Neutrophils # (Auto) 11.2 15.1 Lymphocytes # (Auto) 1.2 1.3 Monocytes # (Auto) 0.8 1.2 Eosinophils # (Auto) 0.1 0.0 Basophils # (Auto) 0.1 0.1 CBC Comment AUTO DIFF DIFF FINAL Differential Comment AUTO DIFF CONFIRMED Blood Urea Nitrogen 45 52 Creatinine 3.06 3.59 Random Glucose 216 185 Total Protein 7.2 Albumin 3.1 Calcium Level 10.5 9.1 Alkaline Phosphatase 94 Aspartate Amino Transf (AST/SGOT) 15 Alanine Aminotransferase (ALT/SGPT) 15 Total Bilirubin 0.5 Sodium Level 133 137 Potassium Level 4.5 4.5 Chloride Level 103 107 Carbon Dioxide Level 18.5 18.4 Anion Gap 12 12 Estimat Glomerular Filtration Rate 16 13 Magnesium Level 1.7 Troponin I 1.03 B-Type Natriuretic Peptide 267 Lipase 212 Lactic Acid Level 1.3 Prothrombin Time 10.8 Prothromb Time International Ratio 1.0 Activated Partial Thromboplast Time 23.7 Total Creatine Kinase 253 Creatine Kinase MB 30.4 Creatine Kinase MB % 12.0 Triglycerides Level 246 Cholesterol Level 241 LDL Cholesterol 145 HDL Cholesterol 46.4 Cholesterol/HDL Ratio 5.19 Result Diagram: 07/28/17 0525 07/28/17 0525 Imaging Last Impressions Chest X-Ray 07/27/17 0000 Signed Impressions: Service Date/Time: Thursday, July 27, 2017 16:13 - CONCLUSION: No acute disease. Rhett Miller MD Capsteveni VTE Risk Assessment Caprini VTE Risk Assessment: Mod/High Risk (score >= 2) Caprini Risk Assessment Model Point Value = 1 Point Value = 2 Point Value = 3 Point Value = 5 Age 41-60 Minor surgery BMI > 25 kg/m2 Swollen legs Varicose veins or History of unexplained or recurrent spontaneous Oral contraceptives or hormone replacement Sepsis (< 1 month) Serious lung disease, including pneumonia (< 1 month) Abnormal pulmonary function Acute myocardial infarction Congestive heart failure (< 1 month) History of inflammatory bowel disease Medical patient at bed rest Age 61-74 Arthroscopic surgery Major open surgery (> 45 min) Laparoscopic surgery (> 45 min) Malignancy Confined to bed (> 72 hours) Immobilizing plaster cast Central venous access Age >= 75 History of VTE Family history of VTE Factor V Leiden Prothrombin [id number] Lupus anticoagulant Anticardiolipin antibodies Elevated serum homocysteine Heparin-induced thrombocytopenia Other congenital or acquired thrombophilia Stroke (< 1 month) Elective arthroplasty Hip, pelvis, or leg fracture Acute spinal cord injury (< 1 month) Prophylaxis Regimen Total Risk Factor Score Risk Level Prophylaxis Regimen 0-1 Low Early ambulation 2 Moderate Order ONE of the following: *Sequential Compression Device (SCD) *Heparin 5000 units SQ BID 3-4 Higher Order ONE of the following medications: *Heparin 5000 units SQ TID *Enoxaparin/Lovenox 40 mg SQ daily (WT < 150 kg, CrCl > 30 mL/min) *Enoxaparin/Lovenox 30 mg SQ daily (WT < 150 kg, CrCl > 10-29 mL/min) *Enoxaparin/Lovenox 30 mg SQ BID (WT < 150 kg, CrCl > 30 mL/min) AND/OR *Sequential Compression Device (SCD) 5 or more Highest Order ONE of the following medications: *Heparin 5000 units SQ TID (Preferred with Epidurals) *Enoxaparin/Lovenox 40 mg SQ daily (WT < 150 kg, CrCl > 30 mL/min) *Enoxaparin/Lovenox 30 mg SQ daily (WT < 150 kg, CrCl > 10-29 mL/min) *Enoxaparin/Lovenox 30 mg SQ BID (WT < 150 kg, CrCl > 30 mL/min) AND *Sequential Compression Device (SCD) Assessment and Plan Problem List: (1) Alcohol abuse ICD Code: F10.10 - Alcohol abuse, uncomplicated (2) CAD (coronary artery disease) ICD Code: I25.10 - Atherosclerotic heart disease of [place] coronary artery without angina pectoris (3) Hypertension ICD Code: I10 - Essential (primary) hypertension (4) Tobacco abuse ICD Code: Z72.0 - Tobacco use (5) Hyperlipidemia ICD Code: E78.5 - Hyperlipidemia, unspecified (6) Diabetes ICD Code: E11.9 - Type 2 diabetes mellitus without complications (7) STEMI (ST elevation myocardial infarction) ICD Code: I21.3 - ST elevation (STEMI) myocardial infarction of unspecified site Status: Acute Assessment and Plan Acute myocardial infarction. Status post cardiac catheterization with stent to the proximal LAD Will need to be on Levaquin on Plavix and aspirin as well as a statin from here on out Diabetes mellitus poorly controlled will need to be on insulin probably unless renal functions stabilized and become perfect Hypertension start medications he does take them Hyperlipidemia continue on statin Smoking and alcohol cessation recommended Thursday NicoDerm patch Monitor here today Discharge when cleared by cardiology Will need help from case management regarding follow-up since patient has no insurance and to get her medications Needs full lifestyle change Code Status Full code Discussed Condition With Patient and RN Physician Certification 2 Midnight Certification Type: Admission for Inpatient Services Order for Inpatient Services The services are ordered in accordance with Medicare regulations or non- Medicare payer requirements, as applicable. In the case of services not specified as inpatient-only, they are appropriately provided as inpatient services in accordance with the 2-midnight benchmark. Estimated LOS (days): 3 3 days is the estimated time the patient will need to remain in the hospital, assuming treatment plan goals are met and no additional complications. Post-Hospital Plan: Home Problem Qualifiers (1) STEMI (ST elevation myocardial infarction): Qualified Codes: I21.3 - ST elevation (STEMI) myocardial infarction of unspecified site Monster Liu DO Jul 28, 2017 08:26
[2017-07-28] MEDS ORDERED: DEXTROSE 50% IN WATER 50 ML VIAL(D50) IV PRN (08:45)
[2017-07-28] MEDS ORDERED: GLUCAGON 1 MG/ML VIAL OTHER PRN (08:45)
[2017-07-28] MEDS: REMOVE OLD PATCH T-DERMAL SCH (09:00)
[2017-07-28] MEDS ORDERED: NICOTINE 14 MG/24 HR PATCH T-DERMAL ONE (09:00)
[2017-07-28] MEDS ORDERED: amLODIPine BESYLATE 5 MG TAB PO SCH (09:00)
[2017-07-28] MEDS ORDERED: LISINOPRIL 5 MG TAB PO SCH (09:00)
[2017-07-28] MEDS: INSULIN ASPART SUPPLEMENTAL SCALE SQ SCH ×3 (11:54→21:21)
--- NOTE | 2017-07-28 12:01 | RADRPT ---
EXAM DATE/TIME: 07/28/2017 10:58 [facility] COMPARISON: No previous studies available for comparison. INDICATIONS : Abnormal labs. MEDICAL HISTORY : Hypertension. Hypercholesterolemia. Vision problems. Diabetes. Anxiety. ETOH abuse. CAD. STEMI. SURGICAL HISTORY : Cholecystectomy. Tubal ligation. section. ENCOUNTER: Initial ACUITY: 1 day PAIN SCORE: 2/10 LOCATION: Bilateral flank MEASUREMENTS: RIGHT KIDNEY: 10.2 x 5.5 x 5.7 cm LEFT KIDNEY: 10.5 x 5.1 x 5.3 cm FINDINGS: RIGHT KIDNEY: Renal cortex is normal in thickness and echotexture. No hydronephrosis, stone, or mass. LEFT KIDNEY: Renal cortex is normal in thickness and echotexture. No hydronephrosis, stone, or mass. BLADDER: Within normal limits given the degree of distension. CONCLUSION: 1. The examination is within normal limits. Anatoly Wong MD on July 28, 2017 at 11:59 Board Certified Radiologist. This report was verified electronically.
--- NOTE | 2017-07-28 13:27 | EKG ---
Date Performed: 07/27/2017 Time Performed: 13:51:04 PTAGE: 52 years EKG: Sinus rhythm WITH SINUS ARRHYTHMIA ST DEVIATION AND MODERATE T-WAVE ABNORMALITY, CONSIDER LATERAL ISCHEMIA ABNORM AL ECG PREVIOUS TRACING 07/25/1997 Since the prior tracing, the changes suggesting lateral wall ischemi a are new. Clinical correlation will be important. DOCTOR: Brigitte Caban Interpretating Date/Time 07/29/2017 06:43:52
--- NOTE | 2017-07-28 13:29 | EKG ---
Date Performed: 07/27/2017 Time Performed: 15:44:55 PTAGE: 52 years EKG: Sinus rhythm WITH MARKED SINUS ARRHYTHMIA ST DEVIATION AND MODERATE T-WAVE ABNORMALITY, CONSIDER ANTEROLATERAL IS CHEMIA ABNORMAL ECG PREVIOUS TRACING : 07/27/2017 13.51 Since the prior tracing, the patient's evolving anterosepta l T-wave changes are worsening. Study suggests proximal left anterior descending coronary artery dise ase. Clinical correlation will be extremely important. DOCTOR: Brigitte Caban Interpretating Date/Time 07/28/2017 13:27:23
--- NOTE | 2017-07-28 13:29 | EKG ---
Date Performed: 07/28/2017 Time Performed: 06:01:22 PTAGE: 52 years EKG: Sinus rhythm . Extensive ST-T changes may be due to myocardial ischemia Low QRS voltages in limb leads Abnormal EC G PREVIOUS TRACING : 07/27/2017 15.44 Serial changes are consistent with the progressive anterola teral medium, suggestive of proximal left anterior descending coronary artery disease. DOCTOR: Brigitte Caban Interpretating Date/Time 07/28/2017 13:28:43
--- NOTE | 2017-07-28 14:40 | MB ---
cc: RODRIGO SCOTT M.D. DATE OF CONSULTATION: 07/27/2017 HISTORY OF PRESENT ILLNESS Thank you Dr. Thurston for asking me to see this very pleasant 52-year-old white female who presents with ACS DOES NOT MEET CRITERIA FOR STEMI The patient presented with chest pain that began at 11:00 p.m. the previous night, also with nausea, vomiting and diarrhea. She has a history of diabetes. She has been noncompliant taking Glucophage. She has a history of hypertension, history of tubal ligation. PAST SURGICAL HISTORY 1. section. 2. Cholecystectomy. 3. Boils under both arms. SOCIAL HISTORY Rare alcohol. Smokes one pack per day. No drugs. MEDICATIONS Medications include Keflex. PHYSICAL EXAMINATION VITAL SIGNS: On examination pulse was 102, blood pressure 260/123. EYES: Showed no xanthelasma. MOUTH: Showed no cyanosis, pallor. NECK: Showed no JVD. HEART: She had two heart sounds. No murmurs. CHEST: Chest was tender. ABDOMEN: Abdomen was tender, abdomen was huge and obese. EXTREMITIES: Legs reveal no evidence of edema. NEUROLOGIC: Grossly intact. SKIN: Grossly intact. LABORATORY DATA This is a patient who is in extremis with acute severe chest pain with elevated troponin. Her other labs included a troponin elevated at 1.03, sodium 133, potassium 4.5, BUN 45, creatinine 3.06, in 2014 her creatinine was 1.17, GFR had dropped from 50 to 16 liters. AST, ALT were 15, lipase to 112. Initial EKG showed some minimal ST elevation but no definite VT, second EKG showed ST BIPHASIC CHANGES AND ISCHEMIA. Chest x-ray showed no acute disease. ASSESSMENT/PLAN This is a patient who presented to the ER with nausea and vomiting, diarrhea and subsequently had severe chest pain. Initial EKG was essentially negative and second EKG showed some minor ST changes Because of the acute chest pain syndrome the patient was brought to the lab instructor emergently. Rodrigo Scott MD, FRCP,[facility]BYJ/PAULO /6:07 PM /2:26 PM [facility]ITALHumberto
--- NOTE | 2017-07-28 15:39 | PD.CARD.PN ---
Subjective Subjective Remarks No chest pain or SOB. No pain, swelling or bruising of right groin site. (Rose Soto) Objective Medications Current Medications Medications (Trade) Dose Ordered Sig/Stephan Route Start Time Stop Time Status Last Admin (NS Flush) 2 ml UNSCH PRN IV FLUSH 07/27/17 14:00 (NS Flush) 2 ml UNSCH PRN IVF 07/27/17 16:00 (Tylenol) 325 mg Q4H PRN PO 07/27/17 18:30 (Percocet 5-325 Mg) 1 tab Q4H PRN PO 07/27/17 18:30 (Percocet 10-325 Mg) 1 tab Q4H PRN PO 07/27/17 18:30 (Restoril) 15 mg HS PRN PO 07/27/17 18:30 (Aspirin Chew) 81 mg DAILY PO 07/28/17 09:00 07/28/17 08:23 (Plavix) 75 mg DAILY PO 07/28/17 09:00 07/28/17 08:24 (Atropine Inj) 0.5 mg UNSCH PRN IV PUSH 07/27/17 18:30 Sodium Chloride 250 ml @ 500 mls/hr ONCE PRN IV 07/27/17 18:30 07/28/17 18:29 (Zofran Inj) 4 mg Q4H PRN IV PUSH 07/27/17 18:30 (Lopressor) 50 mg BID PO 07/27/17 21:00 07/28/17 08:24 Sodium Chloride 1,000 ml @ 125 mls/hr Q8H IV 07/27/17 18:30 07/28/17 08:25 (D50w (Vial) Inj) 50 ml UNSCH PRN IV PUSH 07/27/17 19:15 (Glucagon Inj) 1 mg UNSCH PRN OTHER 07/27/17 19:15 (NovoLOG SUPPLEMENTAL SCALE) 1 ACHS SLIDING SCALE SQ 07/27/17 21:00 07/28/17 08:22 Nitroglycerin/ Dextrose 250 ml @ 6 mls/hr TITRATE PRN IV 07/27/17 22:45 07/28/17 00:26 (Lopressor Inj) 5 mg Q1H PRN IV PUSH 07/27/17 22:45 07/28/17 03:24 (Lipitor) 40 mg HS PO 07/28/17 21:00 (Levemir Inj) 10 units HS SQ 07/28/17 21:00 (Catapres) 0.1 mg Q4H PRN PO 07/28/17 08:45 (D50w (Vial) Inj) 50 ml UNSCH PRN IV 07/28/17 08:45 (Glucagon Inj) 1 mg UNSCH PRN OTHER 07/28/17 08:45 (NovoLOG SUPPLEMENTAL SCALE) 1 ACHS SLIDING SCALE SQ 07/28/17 11:00 07/28/17 11:54 (Habitrol 14 Mg Patch.24 Hr) 1 patch DAILY T-DERMAL 07/29/17 09:00 Miscellaneous Information 1 DAILY T-DERMAL 07/28/17 09:00 (Norvasc) 5 mg BID PO 07/28/17 21:00 Vital Signs / I&O Vital Signs Date Time Temp Pulse Resp B/P (MAP) Pulse Ox O2 Delivery O2 Flow Rate FiO2 07/28/17 15:05 66 167/93 07/28/17 14:00 65 07/28/17 13:22 69 07/28/17 13:00 70 127/68 07/28/17 12:00 78 07/28/17 11:00 98.2 71 16 131/78 (95) 94 07/28/17 11:00 72 07/28/17 10:00 70 07/28/17 09:15 70 07/28/17 08:26 76 129/82 07/28/17 08:00 73 07/28/17 07:00 79 07/28/17 07:00 98.4 76 129/82 (98) 93 07/28/17 05:30 98.2 73 18 126/72 (90) 93 07/28/17 00:31 16 07/28/17 00:26 80 184/99 07/27/17 21:46 98.1 82 18 185/104 (131) 96 07/27/17 19:00 98.2 75 18 147/80 (102) 94 07/27/17 18:51 76 07/27/17 18:51 97.7 75 18 125/66 (85) 95 07/27/17 18:42 18 07/27/17 16:57 07/27/17 16:30 183/77 (112) 07/27/17 16:15 201/107 (138) 07/27/17 16:13 82 249/116 07/27/17 16:00 228/107 (147) 07/27/17 15:45 249/116 (160) I/O 07/27/17 07/27/17 07/27/17 07/28/17 07/28/17 07/28/17 07:00 15:00 23:00 07:00 15:00 23:00 Intake Total 1000 ml 480 ml 335 ml Output Total 350 ml Balance 1000 ml 130 ml 335 ml Intake Oral 480 ml IV Total 1000 ml 335 ml Output Urine Total 350 ml # Voids 1 Physical Exam GENERAL: Obese, middle age female SKIN: Warm and dry. HEAD: Normocephalic. EYES: No scleral icterus. No injection or drainage. NECK: Supple, trachea midline. No JVD or lymphadenopathy. CARDIOVASCULAR: Regular rate and rhythm without murmurs, gallops, or rubs. RESPIRATORY: Breath sounds equal bilaterally. No accessory muscle use. GASTROINTESTINAL: Abdomen soft, non-tender, nondistended. MUSCULOSKELETAL: No cyanosis, or edema. BACK: Nontender without obvious deformity. No CVA tenderness. Laboratory Laboratory Tests Test 07/28/17 05:25 07/28/17 09:50 White Blood Count 17.8 TH/MM3 Red Blood Count 3.66 MIL/MM3 Hemoglobin 10.8 GM/DL Hematocrit 31.6 % Mean Corpuscular Volume 86.4 FL Mean Corpuscular Hemoglobin 29.6 PG Mean Corpuscular Hemoglobin Concent 34.3 % Red Cell Distribution Width 14.7 % Platelet Count 185 TH/MM3 Mean Platelet Volume 10.0 FL Neutrophils (%) (Auto) 85.0 % Lymphocytes (%) (Auto) 7.4 % Monocytes (%) (Auto) 6.9 % Eosinophils (%) (Auto) 0.1 % Basophils (%) (Auto) 0.6 % Neutrophils # (Auto) 15.1 TH/MM3 Lymphocytes # (Auto) 1.3 TH/MM3 Monocytes # (Auto) 1.2 TH/MM3 Eosinophils # (Auto) 0.0 TH/MM3 Basophils # (Auto) 0.1 TH/MM3 CBC Comment DIFF FINAL Differential Comment Prothrombin Time 10.8 SEC Prothromb Time International Ratio 1.0 RATIO Activated Partial Thromboplast Time 23.7 SEC Blood Urea Nitrogen 52 MG/DL Creatinine 3.59 MG/DL Random Glucose 185 MG/DL Calcium Level 9.1 MG/DL Sodium Level 137 MEQ/L Potassium Level 4.5 MEQ/L Chloride Level 107 MEQ/L Carbon Dioxide Level 18.4 MEQ/L Anion Gap 12 MEQ/L Estimat Glomerular Filtration Rate 13 ML/MIN Total Creatine Kinase 253 U/L Creatine Kinase MB 30.4 NG/ML Creatine Kinase MB % 12.0 % Triglycerides Level 246 MG/DL Cholesterol Level 241 MG/DL LDL Cholesterol 145 MG/DL HDL Cholesterol 46.4 MG/DL Cholesterol/HDL Ratio 5.19 RATIO Troponin I GREATER THAN 40.00 NG/ML Imaging Last 72 hours Impressions Renal Ultrasound 07/28/17 0000 Signed Impressions: Service Date/Time: Friday, July 28, 2017 10:58 - CONCLUSION: 1. The examination is within normal limits. Anatoly Wong MD Chest X-Ray 07/27/17 0000 Signed Impressions: Service Date/Time: Thursday, July 27, 2017 16:13 - CONCLUSION: No acute disease. Rhett Miller MD (Rose Soto) Assessment and Plan Assessment and Plan STEMI s/p cardiac cath with coronary stent. No LV gram completed due to renal function HTN HLD Diabetes Renal insufficiency. Worsening renal function. PLAN: Add hydralazine, wean nitroglycerin gtt Check cardiac echo Nephrology following. Continue IVF Continue ASA, Plavix, BB, norvasc and statin. She is not a candidate for JOSE ROBERTO or ARB due to acute kidney injury. Patient seen and evaluated by Dr Scott who completed face to face encounter and physical exam, and participated in evaluation and management. (Rose Soto) Assessment and Plan The exam, history, and the medical decision-making described in the above note were completed with the assistance of the mid-level provider. I reviewed and agree with the findings presented. I attest that I had a [id number] encounter with the patient on the same day, and personally performed and documented my assessment and findings in the medical record. Long discussion re cath and anterior LAD CA and risks. Hopefully will recover enough function to stay off dialysis (Rodrigo Scott MD) Rose Soto Jul 28, 2017 15:39 Rodrigo Scott MD Jul 30, 2017 15:09
[2017-07-28] MEDS: ONDANSETRON HCL 4 MG/2 ML VIAL IV PUSH PRN ×2 (15:45→21:25)
--- NOTE | 2017-07-28 16:56 | ECHRPT ---
Indication: STEMI CONCLUSIONS The left ventricular systolic function is normal with an estimated ejection fraction in the range of 55-60%. Normal left ventricular size. Wall thickness is normal. No definite regional wall motion abnormalities are present. Trace mitral valve regurgitation. The aortic valve is not well visualized. BP: 278 / 150 HR: 102 Rhythm: Sinus MEASUREMENTS (Male / Female) Normal Values Technical Quality:Very technically difficult study 2D ECHO LVOT Diameter 1.8 cm LV Ejection Fraction MOD 4C 60.3 % LV Cardiac Index MOD 4C 2138.5 cm/minm LV Ejection Fraction 4C AL 62.5 % LV Cardiac Index 4C AL 2363.0 cm/minm M-MODE Aortic Root Diameter MM 2.7 cm AV Cusp Separation MM 1.5 cm DOPPLER AV Peak Velocity 165.0 cm/s AV Peak Gradient 10.9 mmHg LVOT Peak Velocity 121.0 cm/s LVOT Peak Gradient 5.9 mmHg AV Area Cont Eq pk 1.9 cm MV Area PHT 4.1 cm Mitral E Point Velocity 110.0 cm/s Mitral A Point Velocity 115.0 cm/s Mitral E to A Ratio 1.0 LV E' Lateral Velocity 5.0 cm/s Mitral E to LV E' Lateral Ratio 22.1 LV E' Septal Velocity 3.9 cm/s Mitral E to LV E' Septal Ratio 28.2 PV Peak Velocity 103.0 cm/s PV Peak Gradient 4.2 mmHg FINDINGS LEFT VENTRICLE The left ventricular systolic function is normal with an estimated ejection fraction in the range of 55-60%. Normal left ventricular size. Wall thickness is normal. No definite regional wall motion abnormalities are present. RIGHT VENTRICLE Normal right ventricular size and systolic function. LEFT ATRIUM The left atrial size is normal. RIGHT ATRIUM The right atrial size is normal. ATRIAL SEPTUM Normal atrial septal thickness without atrial level shunting by limited color doppler interrogation. AORTA The aortic root and proximal ascending aorta are normal in size on limited imaging. MITRAL VALVE Structurally normal mitral valve. Trace mitral valve regurgitation. AORTIC VALVE The aortic valve is not well visualized. TRICUSPID VALVE The tricuspid valve is not well visualized. PULMONARY VALVE The pulmonary valve is not well visualized. VESSELS The inferior vena cava is normal in size. PERICARDIUM No pericardial effusion. Connor Musa MD (Electronically Signed) Final Date:28 July 2017 16:55
[2017-07-28] MEDS: hydrALAZINE HCL 25 MG TAB PO SCH (17:37)
[2017-07-28] MEDS: amLODIPine BESYLATE 5 MG TAB PO SCH (21:08)
[2017-07-28] MEDS: ATORVASTATIN 40 MG TAB PO SCH (21:09)
[2017-07-28] MEDS: INSULIN DETEMIR 100 UNITS/ML VIAL SQ SCH (21:21)
--- NOTE | 2017-07-28 22:22 | MB ---
cc: ALETHEA PLATA MD DATE OF CONSULTATION 07/28/2017 REASON FOR CONSULTATION Elevated BUN and creatinine for evaluation. HISTORY OF PRESENT ILLNESS This is 52-year-old female with past medical history of diabetes mellitus for the last more than 20 years, history of hypertension and history of chronic kidney disease, came to the hospital with complaint of chest pain and shortness of breath. I was called to see the patient because of elevated BUN and creatinine. The patient was told in December that she has kidney disease stage IV by the primary physician that she has been seeing off and on. She is not taking her medications regularly since December because she lost her job and she has no insurance. She was not taking her blood pressure medicine and she was not also taking her diabetic medication. The patient came here mainly with retrosternal chest pain. She was diagnosed with STEMI and had the cardiac catheterization done yesterday with contrast and she tolerated the procedure. The chest pain improved but her blood pressure was elevated and she is on nitroglycerin drip. The patient also has been taking ibuprofen at home almost every day for headache. She is not taking any of her other medications. She has known history of renal failure, her mother was on dialysis before she PAST MEDICAL HISTORY 1. Hypertension. 2. Diabetes mellitus. 3. Chronic kidney disease stage IV. 4. Hyperlipidemia. 5. Ischemic heart disease. PAST SURGICAL HISTORY 1. Just has a cardiac catheterization. 2. Previously had cholecystectomy. 3. Tubal ligation. 4. section. 5. Axillary body removal. 6. Multiple eye surgeries. REVIEW OF SYSTEMS Denies any history of headache, dizziness or blurring of vision. She has this chest pain which was retrosternal associated with mild shortness of breath, and has nausea and vomiting for almost 12 hours before she came to the hospital. There is no history of fever. She off and on has headache and has been taking ibuprofen. There is no history of dysuria, hematuria or difficulty passing urine. There is no history of renal stone. SOCIAL HISTORY The patient is single. She smokes about half-pack per day. There is no history of heavy alcoholism. FAMILY HISTORY Positive for renal disease and diabetes from the mother's side. The mother at an early age of 38. ALLERGIES SHE IS ALLERGIC TO CEPHALEXIN. MEDICATIONS Currently she is on: 1. Normal saline at 125 an hour. 2. Metoprolol 50 mg b.i.d. 3. Aspirin 81 mg once a day. 4. Plavix 75 mg daily. 5. Lisinopril 5 mg daily. 6. Amlodipine 5 mg daily. 7. Nicotine patch. 8. Lipitor 40 mg q.h.s. 9. Levemir 10 units q.h.s. 10. She is on insulin aspart sliding scale. 11. Percocet as needed. 12. Restoril as needed. PHYSICAL EXAMINATION GENERAL: On examination the patient is awake, alert. She is not in acute distress. VITAL SIGNS: Her last blood pressure is 129/82, temperature 98.4, oxygen saturation is 93% on room air. HEENT: Pupils are mid constricted. Nonicteric sclera, conjunctiva pale. NECK: Supple. JVD is not elevated. LUNGS: The patient has bilateral good air entry with occasional wheezing. HEART: S1-S2, regular rhythm. ABDOMEN: Distended, soft, lax. There is no tenderness. Bowel sounds positive. EXTREMITIES: She has mild edema in the legs. LABORATORY DATA Investigation, WBC count 17.8, hemoglobin 10.8, platelet count 185, neutrophils 85. Sodium 137, potassium 4.5, chloride 107, bicarb 18.4, BUN 52, creatinine 3.5, glucose 185. Creatinine kinase 253, MB is 12.0. BNP is 267. Triglyceride 246, cholesterol 241, LDL is 145. INR is 1.0. Urinalysis showing protein of 300+. IMAGING STUDIES The patient has chest x-ray done yesterday which shows lung lemus clear. ASSESSMENT/PLAN 1. Chronic kidney disease with acute kidney injury. 2. Acute MA ST-elevation myocardial infarction. 3. Hypertension uncontrolled. 4. Diabetes mellitus. 5. Anemia. 6. Hyperlipidemia. The patient has a history of noncompliance mainly because she did not have any insurance. It seems like she has proteinuria and chronic kidney disease. Her creatinine was 1.1 in April of 2015 and now she came with creatinine of 3.0. There may be an element of acute kidney injury also either related to her cardiac disease on because of the contrast. I will do the workup for the renal failure including ultrasound of the kidneys and send the serology since she has proteinuria. I agree with continuing the hydration. I will hold her lisinopril for now since the creatinine is going up and increase the amlodipine to control the blood pressure and follow the urine output and the BUN and creatinine. I did discuss with the patient about the possibility of dialysis if the kidney function does not improve and I also told her that she should avoid taking ibuprofen. Thank you for the consultation. I will follow the patient while she is in the hospital. MD DEYA Allen/GREGORIA /9:45 AM /10:04 PM
[2017-07-28] MEDS: cloNIDine HCL 0.1 MG TAB PO PRN (23:06)
[2017-07-28] MEDS ORDERED: PROCHLORPERAZINE INJ 10 MG/2 ML VIAL IV PUSH PRN (23:45)
[2017-07-29] VITALS (25 sets, daily range): BP systolic 114–145; BP diastolic 48–78; PULSE 53–72; RESP 16–18; TEMP 97.7–98.6; O2SAT 95–99
[2017-07-29] MEDS: INSULIN ASPART SUPPLEMENTAL SCALE SQ SCH ×5 (08:05→21:00)
[2017-07-29] MEDS: LOW DOSE INSULIN NOVOLOG SUPPLEMENTAL SCALE SQ SCH ×5 (08:05→21:00)
[2017-07-29 08:46] LABS: AUTOMATED NEUTROPHIL # 9.1 TH/MM3 (1.8-7.7); BASOPHIL # 0.1 TH/MM3 (0-0.2); BASOPHIL % 0.6 % (0.0-2.0); EOSINOPHIL # 0.2 TH/MM3 (0-0.4); EOSINOPHIL % 1.7 % (0.0-4.0); HEMATOCRIT 28.4 % (35.0-46.0); HEMO FLAGS DIFF FINAL; LYMPH % 20.5 % (9.0-44.0); LYMPHOCYTE # 2.7 TH/MM3 (1.0-4.8); MEAN CELL VOLUME 87.8 FL (80.0-100.0); MEAN CORPUSCULAR HEMOGLOBIN 29.7 PG (27.0-34.0); MEAN CORPUSCULAR HGB CONC 33.8 % (32.0-36.0); MONO % 6.8 % (0.0-8.0); NEUT % 70.4 % (16.0-70.0); PLATELET COUNT 166 TH/MM3 (150-450); RED BLOOD COUNT 3.24 MIL/MM3 (4.00-5.30); RED CELL DISTRIBUTION WIDTH 14.8 % (11.6-17.2)
[2017-07-29] MEDS: NICOTINE 14 MG/24 HR PATCH T-DERMAL SCH (08:51)
[2017-07-29] MEDS: METOPROLOL TARTRATE 25 MG TAB PO SCH ×2 (08:53→21:32)
[2017-07-29] MEDS: ASPIRIN 81 MG CHEW TAB PO SCH (08:53)
[2017-07-29] MEDS: CLOPIDOGREL 75 MG TAB PO SCH (08:53)
[2017-07-29] MEDS: amLODIPine BESYLATE 5 MG TAB PO SCH ×2 (08:53→21:32)
[2017-07-29] MEDS: hydrALAZINE HCL 25 MG TAB PO SCH ×3 (08:53→18:05)
[2017-07-29] MEDS: REMOVE OLD PATCH T-DERMAL SCH (08:53)
[2017-07-29 09:17] LABS: ANION GAP 8 MEQ/L (5-15); AST (GOT) 22 U/L (15-37); BICARBONATE 20.2 MEQ/L (21.0-32.0); BLOOD UREA NITROGEN 61 MG/DL (7-18); CHLORIDE 107 MEQ/L (98-107); GLOMERULAR FILTRATION RATE 9 ML/MIN (>89); MAGNESIUM 1.7 MG/DL (1.5-2.5); POTASSIUM 4.7 MEQ/L (3.5-5.1); SODIUM (NA) 135 MEQ/L (136-145)
[2017-07-29 09:24] LABS: ALKALINE PHOSPHATASE 72 U/L (45-117); ALT (GPT) 15 U/L (10-53); FREE T4 0.42 NG/DL (0.76-1.46); TOTAL BILIRUBIN ADULT 0.2 MG/DL (0.2-1.0)
[2017-07-29] MEDS: SODIUM CHLOR 0.9% 1000 ML INJ 1,000 ML IV SCH ×3 (10:44→21:22)
--- NOTE | 2017-07-29 11:50 | HHI.PR ---
Subjective Remarks Patient is not urinating much. Only had 100 cc since yesterday. Still waiting for labs this morning. JIMMY RN. No chest pain or shortness of breath. Objective Vitals Vital Signs Date Time Temp Pulse Resp B/P (MAP) Pulse Ox O2 Delivery O2 Flow Rate FiO2 07/29/17 10:25 59 07/29/17 09:30 57 07/29/17 08:07 97.7 67 18 135/69 (91) 99 07/29/17 08:07 61 07/29/17 07:15 67 07/29/17 06:02 58 07/29/17 05:06 59 07/29/17 04:11 56 07/29/17 03:20 53 07/29/17 03:20 98.2 58 17 114/48 (70) 95 07/29/17 02:04 57 07/29/17 01:32 62 07/29/17 00:27 64 07/28/17 23:49 148/62 (90) 07/28/17 23:10 63 07/28/17 23:10 98.3 63 16 167/82 (110) 96 07/28/17 22:26 169/84 (112) 07/28/17 22:10 66 07/28/17 21:00 70 07/28/17 21:00 175/89 (117) 07/28/17 20:15 72 07/28/17 20:00 149/80 (103) 07/28/17 19:42 74 07/28/17 19:42 98.3 70 18 123/59 (80) 95 07/28/17 18:47 78 128/58 07/28/17 18:43 78 128/58 07/28/17 18:42 78 128/58 07/28/17 18:11 75 07/28/17 17:06 78 07/28/17 16:06 75 07/28/17 15:05 66 167/93 07/28/17 15:00 98.4 66 18 150/80 (103) 96 07/28/17 15:00 67 07/28/17 14:00 65 07/28/17 13:22 69 07/28/17 13:00 70 127/68 07/28/17 12:00 78 I/O 07/28/17 07/28/17 07/28/17 07/29/17 9/13/17 9/13/17 07:00 15:00 23:00 07:00 15:00 23:00 Intake Total 480 ml 335 ml 1487 ml 240 ml Output Total 350 ml Balance 130 ml 335 ml 1487 ml 240 ml Intake Oral 480 ml 480 ml 240 ml IV Total 335 ml 1007 ml Output Urine Total 350 ml # Voids 1 2 1 Result Diagram: 07/29/17 0815 07/29/17 0815 Imaging Last Impressions Renal Ultrasound 07/28/17 0000 Signed Impressions: Service Date/Time: Friday, July 28, 2017 10:58 - CONCLUSION: 1. The examination is within normal limits. Anatoly Wong MD Chest X-Ray 07/27/17 0000 Signed Impressions: Service Date/Time: Thursday, July 27, 2017 16:13 - CONCLUSION: No acute disease. Rhett Miller MD Objective Remarks GENERAL: This is a well-nourished, well-developed patient, in no apparent distress. CARDIOVASCULAR: Normal rate and regular rhythm without murmurs, gallops, or rubs. RESPIRATORY: Good respiratory efforts. Breath sounds equal and clear to auscultation bilaterally. GASTROINTESTINAL: Abdomen soft, non-tender, non-distended. Normal active bowel sounds MUSCULOSKELETAL: 1+ bilateral lower extremity edema NEURO: Alert & Oriented x4 to person, place, time, situation. Moves all ext x4 PSYCH: Appropriate mood and affect. A/P Problem List: (1) Alcohol abuse ICD Code: F10.10 - Alcohol abuse, uncomplicated (2) CAD (coronary artery disease) ICD Code: I25.10 - Atherosclerotic heart disease of [place] coronary artery without angina pectoris (3) Hypertension ICD Code: I10 - Essential (primary) hypertension (4) Tobacco abuse ICD Code: Z72.0 - Tobacco use (5) Hyperlipidemia ICD Code: E78.5 - Hyperlipidemia, unspecified (6) Diabetes ICD Code: E11.9 - Type 2 diabetes mellitus without complications (7) STEMI (ST elevation myocardial infarction) ICD Code: I21.3 - ST elevation (STEMI) myocardial infarction of unspecified site Status: Acute Assessment and Plan 52-year-old female admitted for: Acute myocardial infarction. Status post cardiac catheterization with stent to the proximal LAD -Continue aspirin, Plavix, Norvasc, and statin. Acute on chronic kidney disease: Likely related to DE and contrast - Urine output is decreasing and renal functions declining. - Nephrology following. May need dialysis. - Labs pending today. Continue IV fluid. Diabetes mellitus: Untreated. Hemoglobin A1c 7.3 Given renal failure. Continue sliding scale insulin with Accu-Cheks. - Diabetes education Hypertension: Continue Norvasc and hydralazine. Hyperlipidemia: continue on statin Smoking and alcohol cessation discussed with the patient. Problem Qualifiers (1) STEMI (ST elevation myocardial infarction): Qualified Codes: I21.3 - ST elevation (STEMI) myocardial infarction of unspecified site Hardik King MD Jul 29, 2017 11:50
[2017-07-29 14:21] LABS: HEMOGLOBIN A1a 0.9 %; HEMOGLOBIN Ao 82.1 %; HEMOGLOBIN LA1C 2.4 %; HEMOGLOBIN P3 6.2 %
[2017-07-29] MEDS: LEVOTHYROXINE SODIUM 50 MCG TAB PO SCH (14:33)
--- NOTE | 2017-07-29 15:04 | PD.CARD.PN ---
Subjective Subjective Remarks The patient denies CP or SOB. Renal function worsening. Electrolytes okay. Objective Medications Current Medications Medications (Trade) Dose Ordered Sig/Stephan Route Start Time Stop Time Status Last Admin (NS Flush) 2 ml UNSCH PRN IV FLUSH 07/27/17 14:00 (NS Flush) 2 ml UNSCH PRN IVF 07/27/17 16:00 (Tylenol) 325 mg Q4H PRN PO 07/27/17 18:30 07/28/17 23:06 (Percocet 5-325 Mg) 1 tab Q4H PRN PO 07/27/17 18:30 (Percocet 10-325 Mg) 1 tab Q4H PRN PO 07/27/17 18:30 (Restoril) 15 mg HS PRN PO 07/27/17 18:30 (Aspirin Chew) 81 mg DAILY PO 07/28/17 09:00 07/29/17 08:53 (Plavix) 75 mg DAILY PO 07/28/17 09:00 07/29/17 08:53 (Atropine Inj) 0.5 mg UNSCH PRN IV PUSH 07/27/17 18:30 (Zofran Inj) 4 mg Q4H PRN IV PUSH 07/27/17 18:30 07/28/17 21:25 (Lopressor) 50 mg BID PO 07/27/17 21:00 07/29/17 08:53 Sodium Chloride 1,000 ml @ 125 mls/hr Q8H IV 07/27/17 18:30 07/29/17 10:44 (D50w (Vial) Inj) 50 ml UNSCH PRN IV PUSH 07/27/17 19:15 (Glucagon Inj) 1 mg UNSCH PRN OTHER 07/27/17 19:15 (NovoLOG SUPPLEMENTAL SCALE) 1 ACHS SLIDING SCALE SQ 07/27/17 21:00 07/28/17 08:22 Nitroglycerin/ Dextrose 250 ml @ 6 mls/hr TITRATE PRN IV 07/27/17 22:45 07/28/17 18:43 (Lopressor Inj) 5 mg Q1H PRN IV PUSH 07/27/17 22:45 07/28/17 22:26 (Lipitor) 40 mg HS PO 07/28/17 21:00 07/28/17 21:09 (Levemir Inj) 10 units HS SQ 07/28/17 21:00 07/28/17 21:21 (Catapres) 0.1 mg Q4H PRN PO 07/28/17 08:45 07/28/17 23:06 (D50w (Vial) Inj) 50 ml UNSCH PRN IV 07/28/17 08:45 (Glucagon Inj) 1 mg UNSCH PRN OTHER 07/28/17 08:45 (NovoLOG SUPPLEMENTAL SCALE) 1 ACHS SLIDING SCALE SQ 07/28/17 11:00 07/29/17 12:11 (Habitrol 14 Mg Patch.24 Hr) 1 patch DAILY T-DERMAL 07/29/17 09:00 07/29/17 08:51 Miscellaneous Information 1 DAILY T-DERMAL 07/28/17 09:00 07/29/17 08:53 (Norvasc) 5 mg BID PO 07/28/17 21:00 07/29/17 08:53 (Apresoline) 25 mg TID PO 07/28/17 18:00 07/29/17 12:13 (Compazine Inj) 5 mg Q8H PRN IV PUSH 07/28/17 23:45 (Synthroid) 50 mcg DAILY@0600 PO 07/29/17 13:00 07/29/17 14:33 Vital Signs / I&O Vital Signs Date Time Temp Pulse Resp B/P (MAP) Pulse Ox O2 Delivery O2 Flow Rate FiO2 07/29/17 13:00 61 07/29/17 12:23 66 07/29/17 11:53 98.5 63 18 131/67 (88) 99 07/29/17 11:53 61 07/29/17 10:25 59 07/29/17 09:30 57 07/29/17 08:07 97.7 67 18 135/69 (91) 99 07/29/17 08:07 61 07/29/17 07:15 67 07/29/17 06:02 58 07/29/17 05:06 59 07/29/17 04:11 56 07/29/17 03:20 53 07/29/17 03:20 98.2 58 17 114/48 (70) 95 07/29/17 02:04 57 07/29/17 01:32 62 07/29/17 00:27 64 07/28/17 23:49 148/62 (90) 07/28/17 23:10 63 07/28/17 23:10 98.3 63 16 167/82 (110) 96 07/28/17 22:26 169/84 (112) 07/28/17 22:10 66 07/28/17 21:00 70 07/28/17 21:00 175/89 (117) 07/28/17 20:15 72 07/28/17 20:00 149/80 (103) 07/28/17 19:42 74 07/28/17 19:42 98.3 70 18 123/59 (80) 95 07/28/17 18:47 78 128/58 07/28/17 18:43 78 128/58 07/28/17 18:42 78 128/58 07/28/17 18:11 75 07/28/17 17:06 78 07/28/17 16:06 75 07/28/17 15:05 66 167/93 07/28/17 15:00 98.4 66 18 150/80 (103) 96 07/28/17 15:00 67 I/O 07/28/17 07/28/17 07/28/17 07/29/17 07/29/17 07/29/17 06:59 14:59 22:59 06:59 14:59 22:59 Intake Total 480 ml 335 ml 1487 ml 240 ml Output Total 350 ml Balance 130 ml 335 ml 1487 ml 240 ml Intake Oral 480 ml 480 ml 240 ml IV Total 335 ml 1007 ml Output Urine Total 350 ml # Voids 1 2 1 Physical Exam GENERAL: Obese, middle age female SKIN: Warm and dry. HEAD: Normocephalic. EYES: No scleral icterus. No injection or drainage. NECK: Supple, trachea midline. No JVD or lymphadenopathy. CARDIOVASCULAR: Regular rate and rhythm without murmurs, gallops, or rubs. RESPIRATORY: Breath sounds equal bilaterally. No accessory muscle use. GASTROINTESTINAL: Abdomen soft, non-tender, nondistended. MUSCULOSKELETAL: No cyanosis, or edema. BACK: Nontender without obvious deformity. No CVA tenderness. Laboratory Laboratory Tests Test 07/29/17 06:00 07/29/17 08:15 White Blood Count 13.0 TH/MM3 Red Blood Count 3.24 MIL/MM3 Hemoglobin 9.6 GM/DL Hematocrit 28.4 % Mean Corpuscular Volume 87.8 FL Mean Corpuscular Hemoglobin 29.7 PG Mean Corpuscular Hemoglobin Concent 33.8 % Red Cell Distribution Width 14.8 % Platelet Count 166 TH/MM3 Mean Platelet Volume 9.7 FL Neutrophils (%) (Auto) 70.4 % Lymphocytes (%) (Auto) 20.5 % Monocytes (%) (Auto) 6.8 % Eosinophils (%) (Auto) 1.7 % Basophils (%) (Auto) 0.6 % Neutrophils # (Auto) 9.1 TH/MM3 Lymphocytes # (Auto) 2.7 TH/MM3 Monocytes # (Auto) 0.9 TH/MM3 Eosinophils # (Auto) 0.2 TH/MM3 Basophils # (Auto) 0.1 TH/MM3 CBC Comment DIFF FINAL Differential Comment Blood Urea Nitrogen 61 MG/DL Creatinine 5.21 MG/DL Random Glucose 108 MG/DL Total Protein 5.6 GM/DL Albumin 2.4 GM/DL Calcium Level 8.6 MG/DL Phosphorus Level 5.0 MG/DL Magnesium Level 1.7 MG/DL Alkaline Phosphatase 72 U/L Aspartate Amino Transf (AST/SGOT) 22 U/L Alanine Aminotransferase (ALT/SGPT) 15 U/L Total Bilirubin 0.2 MG/DL Sodium Level 135 MEQ/L Potassium Level 4.7 MEQ/L Chloride Level 107 MEQ/L Carbon Dioxide Level 20.2 MEQ/L Anion Gap 8 MEQ/L Estimat Glomerular Filtration Rate 9 ML/MIN Hemoglobin A1c 7.3 % Free Thyroxine 0.42 NG/DL Thyroid Stimulating Hormone 3rd Gen 64.400 uIU/ML Anti-Nuclear Antibody Screen NEG Complement C3 98 MG/DL Complement C4 23 MG/DL Imaging Last 72 hours Impressions Renal Ultrasound 07/28/17 0000 Signed Impressions: Service Date/Time: Friday, July 28, 2017 10:58 - CONCLUSION: 1. The examination is within normal limits. Anatoly Wong MD Chest X-Ray 07/27/17 0000 Signed Impressions: Service Date/Time: Thursday, July 27, 2017 16:13 - CONCLUSION: No acute disease. Rhett Miller MD Assessment and Plan Assessment and Plan STEMI s/p cardiac cath with LAD coronary stent. EF 55-60% HTN HLD Diabetes Renal insufficiency. Worsening renal function. PLAN: May need dialysis. Nephrology following. Continue ASA, Plavix, BB, norvasc and statin. She is not a candidate for JOSE ROBERTO or ARB due to acute kidney injury. Patient seen and evaluated by Dr Scott who completed face to face encounter and physical exam, and participated in evaluation and management. Rose Soto Jul 29, 2017 15:03
--- NOTE | 2017-07-29 16:11 | HHI.NPPN ---
Subjective History of Present Illness 52-year-old female with past medical history of diabetes mellitus for the last more than 20 years, history of hypertension and history of chronic kidney disease, came to the hospital with complaint of chest pain and shortness of breath. I was called to see the patient because of elevated BUN and creatinine. Additional Remarks Patient is alert, no SOB, no chest pain, not in distress. Review of Systems Respiratory Lungs: SOB, Wheeze Cardiovascular Cardiac: Chest Pain, Edema, PENNY Objective Data Data Vital Signs Date Time Temp Pulse Resp B/P (MAP) Pulse Ox O2 Delivery O2 Flow Rate FiO2 07/29/17 15:14 98.6 61 16 129/69 (89) 98 07/29/17 15:14 64 07/29/17 14:00 72 07/29/17 13:00 61 07/29/17 12:23 66 07/29/17 11:53 98.5 63 18 131/67 (88) 99 07/29/17 11:53 61 07/29/17 10:25 59 07/29/17 09:30 57 07/29/17 08:07 97.7 67 18 135/69 (91) 99 07/29/17 08:07 61 07/29/17 07:15 67 07/29/17 06:02 58 07/29/17 05:06 59 07/29/17 04:11 56 07/29/17 03:20 53 07/29/17 03:20 98.2 58 17 114/48 (70) 95 07/29/17 02:04 57 07/29/17 01:32 62 07/29/17 00:27 64 07/28/17 23:49 148/62 (90) 07/28/17 23:10 63 07/28/17 23:10 98.3 63 16 167/82 (110) 96 07/28/17 22:26 169/84 (112) 07/28/17 22:10 66 07/28/17 21:00 70 07/28/17 21:00 175/89 (117) 07/28/17 20:15 72 07/28/17 20:00 149/80 (103) 07/28/17 19:42 74 07/28/17 19:42 98.3 70 18 123/59 (80) 95 07/28/17 18:47 78 128/58 07/28/17 18:43 78 128/58 07/28/17 18:42 78 128/58 07/28/17 18:11 75 07/28/17 17:06 78 -: 07/29/17 0815 07/29/17 0815 Physical Exam General Appearance: No Acute Distress, Comfortable Eyes Eye Exam: Pupils Equal Throat Throat Exam: Oral Mucosa [place] & Moist Neck Neck Exam: Neck Supple Pulmonary Resp Exam: Breath Sounds Equal, No Distress, Rhonchi, Decreased Bases Cardiology CV Exam: Regular, Normal Sinus Rhythm Gastrointestinal/Abdomen GI Exam: Soft, Non-Tender, Bowel Sounds Present, Non-Distended Extremeties Extremities Exam: Trace Edema Neurologic Neuro Exam: Alert, Awake, Oriented Psychiatric Psych Exam: Appropriate Responses Assessment/Plan Assessment Summary: EUGENE/Acute Renal Failure, Hypertension, CKD Stage IV Problem List: (1) STEMI (ST elevation myocardial infarction) ICD Codes: I21.3 - ST elevation (STEMI) myocardial infarction of unspecified site Status: Acute (2) CAD (coronary artery disease) ICD Codes: I25.10 - Atherosclerotic heart disease of [place] coronary artery without angina pectoris (3) Diabetes ICD Codes: E11.9 - Type 2 diabetes mellitus without complications (4) Hyperlipidemia ICD Codes: E78.5 - Hyperlipidemia, unspecified (5) Hypertension ICD Codes: I10 - Essential (primary) hypertension Plan Patient remain non oliguric. BP is better. She most likely has chronic kidney disease. Possibly related to Hypertensive or renovascular disease. Now also has EUGENE, related to Acute [place] and contrast. Continue IVF. Creatinine increased, K is normal. Continue IVF. If Creatinine continue to increase, possible HD. Discussed with the patient. Problem Qualifiers (1) STEMI (ST elevation myocardial infarction): Qualified Codes: I21.3 - ST elevation (STEMI) myocardial infarction of unspecified site Adebayo Balderas MD Jul 29, 2017 16:11
[2017-07-29] MEDS: ATORVASTATIN 40 MG TAB PO SCH (21:32)
[2017-07-29] MEDS: INSULIN DETEMIR 100 UNITS/ML VIAL SQ SCH (21:42)
--- NOTE | 2017-07-29 21:47 | MA ---
cc: RODRIGO SCOTT M.D. DATE 07/27/2017 PROCEDURE PERFORMED 1. Cardiac catheterization 2. Intracoronary stent placement to the LAD. 3. ACUTE CORONARY SYNDROME 4. Femoral angiogram 5. Angio-Seal 6. LV and coronaries. 7. No LV gram because of a very severe renal insufficiency with a creatinine of 3.0. 8. MINIMAL CONTRAST USED TO TRY AND DECREASE IMPACT ON KIDNEYS ; hydration used as well CONSENT A fully informed consent was obtained prior to the procedure. The risks of , bleeding, myocardial infarction, perforation, aspiration, foreseen and unforeseen complications were reviewed. The absolute risk of renal failure was reviewed in great detail because of the baseline renal failure and need for contrast that could push the pt into dialysis. The patient fully appeared to understand the risks. PROCEDURAL STATEMENT The patient was draped and prepped in the usual manner. The right femoral artery was entered using a micropuncture technique with ultrasound. Via the 4-[place] sheath, left and right coronaries catheters, left and right coronaries. No LV gram was performed because of the patient having a very high creatinine and severe renal failure. Following this, the 4-[place] sheath was exchanged for a 6-[place] sheath. The patient was given heparin. An ACT of 242 was obtained. A further 1000 units of heparin was given. Following this, a [employer] left guide catheter 3.5 was used to intubate the left main. A 0.014 [place] wire was used to cross the complex LAD diagonal lesion which spanned from the proximal LAD into the mid-LAD. This long lesion was then dilated using a 20 mm Compliant balloon x 2.5 mm. Multiple inflations were carried out. Following this, a 38 mm stent x 2.5 mm was passed across lesion. It was postdilated with a noncompliant balloon at a maximum of 14 atmospheres. Two inflations were carried out. Intracoronary nitroglycerin was used. The patient had very high blood pressures. The patient was given multiple medications for this please see the technical portion. At the end of the procedure, a right femoral angiogram was performed and Angio-Seal placed in the usual manner. Stent placed was a [employer] Synergy 38 mm x 10.5. FINDINGS The LV gram was not done. HEMODYNAMIC RESULTS The aortic pressure was 190/92 with a mean of 133. The patient was on intravenous nitroglycerin for this markedly elevated pressure. CORONARIES The left main was large and had some mild 25% disease proximally. The circumflex disease was large with evidence of a large first obtuse marginal branch, large second obtuse marginal. There was evidence of diffuse disease in the circumflex. The LAD was a medium-sized vessel. It had diffuse disease from the proximal LAD involving the first septal retail merchandising specialist with an approximately 90% stenosis. This was diffusely diseased and culminated in 100% stenosis involving the first diagonal branch. Following ballooning and stenting, the LAD was widely patent with septal perforators and a medium diagonal branch was jailed by the stents, but was widely patent with an excellent ELOY grade 3 flow. ELOY flow went from ELOY grade 0 to ELOY grade 3 after dilation of the vessel. The right coronary artery was a large dominant vessel with a large posterior descending artery, large posterolateral branch. The second posterolateral branch was small. CONCLUSION Successful stenting of the LAD mulltiple lesions with a long section of LAD involved, with a long 38 mm x 2.5 mm Synergy drug-eluting stent. PLAN We will plan to keep the patient on Plavix indefinitely. We will get a renal consult because of the patient's high creatinine and renal failure. This was explained to the patient by the undersigned. Rodirgo Scott MD, FRCP,[facility] [place]/TOYA /6:01 PM /9:27 PM KARY
[2017-07-30] VITALS (25 sets, daily range): BP systolic 142–159; BP diastolic 72–84; PULSE 58–72; RESP 16–18; TEMP 97.7–98.5; O2SAT 97–100
[2017-07-30] MEDS: SODIUM CHLOR 0.9% 1000 ML INJ 1,000 ML IV SCH (04:27)
[2017-07-30] MEDS: LEVOTHYROXINE SODIUM 50 MCG TAB PO SCH (06:06)
[2017-07-30] MEDS: LOW DOSE INSULIN NOVOLOG SUPPLEMENTAL SCALE SQ SCH ×4 (08:00→20:54)
[2017-07-30] MEDS: INSULIN ASPART SUPPLEMENTAL SCALE SQ SCH ×4 (08:00→20:54)
[2017-07-30] MEDS: CLOPIDOGREL 75 MG TAB PO SCH (08:36)
[2017-07-30] MEDS: METOPROLOL TARTRATE 25 MG TAB PO SCH ×2 (08:36→20:54)
[2017-07-30] MEDS: amLODIPine BESYLATE 5 MG TAB PO SCH ×2 (08:36→20:55)
[2017-07-30] MEDS: ASPIRIN 81 MG CHEW TAB PO SCH (08:36)
[2017-07-30] MEDS: hydrALAZINE HCL 25 MG TAB PO SCH ×3 (08:36→17:46)
[2017-07-30] MEDS: REMOVE OLD PATCH T-DERMAL SCH (08:37)
[2017-07-30] MEDS: NICOTINE 14 MG/24 HR PATCH T-DERMAL SCH (08:37)
--- NOTE | 2017-07-30 10:11 | PD.CARD.PN ---
Subjective Subjective Remarks The patient has increased BLE edema and is "barely urinating". No CP or SOB. No rhythm abnormalities. Pending BMP this morning (Rose Soto) Objective Medications Current Medications Medications (Trade) Dose Ordered Sig/Stephan Route Start Time Stop Time Status Last Admin (NS Flush) 2 ml UNSCH PRN IV FLUSH 07/27/17 14:00 (NS Flush) 2 ml UNSCH PRN IVF 07/27/17 16:00 (Tylenol) 325 mg Q4H PRN PO 07/27/17 18:30 07/28/17 23:06 (Percocet 5-325 Mg) 1 tab Q4H PRN PO 07/27/17 18:30 (Percocet 10-325 Mg) 1 tab Q4H PRN PO 07/27/17 18:30 (Restoril) 15 mg HS PRN PO 07/27/17 18:30 (Aspirin Chew) 81 mg DAILY PO 07/28/17 09:00 07/30/17 08:36 (Plavix) 75 mg DAILY PO 07/28/17 09:00 07/30/17 08:36 (Atropine Inj) 0.5 mg UNSCH PRN IV PUSH 07/27/17 18:30 (Zofran Inj) 4 mg Q4H PRN IV PUSH 07/27/17 18:30 07/28/17 21:25 (Lopressor) 50 mg BID PO 07/27/17 21:00 07/30/17 08:36 Sodium Chloride 1,000 ml @ 125 mls/hr Q8H IV 07/27/17 18:30 07/30/17 04:27 (D50w (Vial) Inj) 50 ml UNSCH PRN IV PUSH 07/27/17 19:15 (Glucagon Inj) 1 mg UNSCH PRN OTHER 07/27/17 19:15 (NovoLOG SUPPLEMENTAL SCALE) 1 ACHS SLIDING SCALE SQ 07/27/17 21:00 07/28/17 08:22 Nitroglycerin/ Dextrose 250 ml @ 6 mls/hr TITRATE PRN IV 07/27/17 22:45 07/28/17 18:43 (Lopressor Inj) 5 mg Q1H PRN IV PUSH 07/27/17 22:45 07/28/17 22:26 (Lipitor) 40 mg HS PO 07/28/17 21:00 07/29/17 21:32 (Levemir Inj) 10 units HS SQ 07/28/17 21:00 07/29/17 21:42 (Catapres) 0.1 mg Q4H PRN PO 07/28/17 08:45 07/28/17 23:06 (D50w (Vial) Inj) 50 ml UNSCH PRN IV 07/28/17 08:45 (Glucagon Inj) 1 mg UNSCH PRN OTHER 07/28/17 08:45 (NovoLOG SUPPLEMENTAL SCALE) 1 ACHS SLIDING SCALE SQ 07/28/17 11:00 07/29/17 12:11 (Habitrol 14 Mg Patch.24 Hr) 1 patch DAILY T-DERMAL 07/29/17 09:00 07/30/17 08:37 Miscellaneous Information 1 DAILY T-DERMAL 07/28/17 09:00 07/30/17 08:37 (Norvasc) 5 mg BID PO 07/28/17 21:00 07/30/17 08:36 (Apresoline) 25 mg TID PO 07/28/17 18:00 07/30/17 08:36 (Compazine Inj) 5 mg Q8H PRN IV PUSH 07/28/17 23:45 (Synthroid) 50 mcg DAILY@0600 PO 07/29/17 13:00 07/30/17 06:06 Vital Signs / I&O Vital Signs Date Time Temp Pulse Resp B/P (MAP) Pulse Ox O2 Delivery O2 Flow Rate FiO2 07/30/17 09:00 62 07/30/17 08:00 60 07/30/17 07:00 61 07/30/17 07:00 98.1 72 16 142/75 (97) 97 07/30/17 06:14 58 07/30/17 05:04 59 07/30/17 04:24 60 07/30/17 03:10 59 07/30/17 03:10 97.7 63 18 159/84 (109) 98 07/30/17 02:04 59 07/30/17 01:02 58 07/30/17 00:34 60 07/29/17 23:15 98.2 64 18 130/62 (84) 98 07/29/17 23:00 61 07/29/17 22:00 62 07/29/17 21:00 67 07/29/17 20:00 62 07/29/17 19:20 66 07/29/17 19:20 98.4 70 18 145/78 (100) 97 07/29/17 18:06 67 07/29/17 17:52 61 07/29/17 16:00 68 07/29/17 15:14 98.6 61 16 129/69 (89) 98 07/29/17 15:14 64 07/29/17 14:00 72 07/29/17 13:00 61 07/29/17 12:23 66 07/29/17 11:53 98.5 63 18 131/67 (88) 99 07/29/17 11:53 61 07/29/17 10:25 59 I/O 07/29/17 07/29/17 07/29/17 07/30/17 07/30/17 07/30/17 07:00 15:00 23:00 07:00 15:00 23:00 Intake Total 240 ml 1180 ml 240 ml Output Total 600 ml Balance 240 ml 580 ml 240 ml Intake Oral 240 ml 480 ml 240 ml IV Total 700 ml Output Urine Total 600 ml # Voids 1 2 2 # Bowel Movements 1 Physical Exam GENERAL: Obese, middle age female SKIN: Warm and dry. HEAD: Normocephalic. EYES: No scleral icterus. No injection or drainage. NECK: Supple, trachea midline. No JVD or lymphadenopathy. CARDIOVASCULAR: Regular rate and rhythm without murmurs, gallops, or rubs. RESPIRATORY: Breath sounds equal bilaterally. No accessory muscle use. GASTROINTESTINAL: Abdomen soft, non-tender, nondistended. MUSCULOSKELETAL: No cyanosis, 1+ BLE edema BACK: Nontender without obvious deformity. No CVA tenderness. (Rose Soto) Assessment and Plan Assessment and Plan STEMI s/p cardiac cath with LAD coronary stent. EF 55-60% HTN HLD Diabetes Acute on chronic renal failure pending possible dialysis. UO increased since . Awaiting BMP today PLAN: May need dialysis. Nephrology following. Continue ASA, Plavix, BB, norvasc and statin. She is not a candidate for JOSE ROBERTO or ARB due to EUGENE Patient seen and evaluated by Dr Scott who completed face to face encounter and physical exam, and participated in evaluation and management. (Rose Soto) Assessment and Plan The exam, history, and the medical decision-making described in the above note were completed with the assistance of the mid-level provider. I reviewed and agree with the findings presented. I attest that I had a [id number] encounter with the patient on the same day, and personally performed and documented my assessment and findings in the medical record. Awaiting return of renal function vs dialysis (Rodrigo Scott MD) Rose Soto Jul 30, 2017 10:11 Rodrigo Scott MD Jul 30, 2017 15:31
[2017-07-30 13:03] LABS: HEMATOCRIT 30.4 % (35.0-46.0); MEAN CELL VOLUME 88.8 FL (80.0-100.0); MEAN CORPUSCULAR HEMOGLOBIN 28.9 PG (27.0-34.0); MEAN CORPUSCULAR HGB CONC 32.5 % (32.0-36.0); PLATELET COUNT 178 TH/MM3 (150-450); RED BLOOD COUNT 3.43 MIL/MM3 (4.00-5.30); RED CELL DISTRIBUTION WIDTH 14.8 % (11.6-17.2); REVIEW FLAG FINAL; WHITE BLOOD COUNT 11.2 TH/MM3 (4.0-11.0)
[2017-07-30 13:29] LABS: BICARBONATE 20.4 MEQ/L (21.0-32.0); POTASSIUM 4.9 MEQ/L (3.5-5.1)
[2017-07-30] MEDS ORDERED: FUROSEMIDE 40 MG/4 ML VIAL IV PUSH ONE (14:30)
--- NOTE | 2017-07-30 16:24 | HHI.NPPN ---
Subjective History of Present Illness 52-year-old female with past medical history of diabetes mellitus for the last more than 20 years, history of hypertension and history of chronic kidney disease, came to the hospital with complaint of chest pain and shortness of breath. I was called to see the patient because of elevated BUN and creatinine. Additional Remarks Patient is alert, no SOB, no chest pain, sitting on the chair. Review of Systems Respiratory Lungs: SOB, Wheeze Cardiovascular Cardiac: Chest Pain, Edema, PENNY Objective Data Data 07/30/17 07/31/17 19:00 07:00 Intake Total 998 ml Balance 998 ml IV Total 998 ml Vital Signs Date Time Temp Pulse Resp B/P (MAP) Pulse Ox O2 Delivery O2 Flow Rate FiO2 07/30/17 15:20 61 07/30/17 15:20 98.5 60 17 145/79 (101) 100 07/30/17 14:01 58 07/30/17 13:46 59 07/30/17 12:00 58 07/30/17 11:29 60 07/30/17 11:29 98.5 60 17 145/79 (101) 100 07/30/17 10:00 58 07/30/17 09:00 62 07/30/17 08:00 60 07/30/17 07:00 61 07/30/17 07:00 98.1 72 16 142/75 (97) 97 07/30/17 06:14 58 07/30/17 05:04 59 07/30/17 04:24 60 07/30/17 03:10 59 07/30/17 03:10 97.7 63 18 159/84 (109) 98 07/30/17 02:04 59 07/30/17 01:02 58 07/30/17 00:34 60 07/29/17 23:15 98.2 64 18 130/62 (84) 98 07/29/17 23:00 61 07/29/17 22:00 62 07/29/17 21:00 67 07/29/17 20:00 62 07/29/17 19:20 66 07/29/17 19:20 98.4 70 18 145/78 (100) 97 07/29/17 18:06 67 07/29/17 17:52 61 -: 07/30/17 1235 07/30/17 1235 Physical Exam General Appearance: No Acute Distress, Comfortable Eyes Eye Exam: Pupils Equal Throat Throat Exam: Oral Mucosa [place] & Moist Neck Neck Exam: Neck Supple Pulmonary Resp Exam: Breath Sounds Equal, No Distress, Rhonchi, Decreased Bases Cardiology CV Exam: Regular, Normal Sinus Rhythm Gastrointestinal/Abdomen GI Exam: Soft, Non-Tender, Bowel Sounds Present, Non-Distended Extremeties Extremities Exam: Trace Edema Neurologic Neuro Exam: Alert, Awake, Oriented Psychiatric Psych Exam: Appropriate Responses Assessment/Plan Assessment Summary: EUGENE/Acute Renal Failure, Hypertension, CKD Stage IV Problem List: (1) STEMI (ST elevation myocardial infarction) ICD Codes: I21.3 - ST elevation (STEMI) myocardial infarction of unspecified site Status: Acute (2) CAD (coronary artery disease) ICD Codes: I25.10 - Atherosclerotic heart disease of [place] coronary artery without angina pectoris (3) Diabetes ICD Codes: E11.9 - Type 2 diabetes mellitus without complications (4) Hyperlipidemia ICD Codes: E78.5 - Hyperlipidemia, unspecified (5) Hypertension ICD Codes: I10 - Essential (primary) hypertension Plan Patient remain non oliguric. BP is better. She most likely has chronic kidney disease. Possibly related to Hypertensive or renovascular disease. Now also has EUGENE, related to Acute [place] and contrast. Continue IVF. Creatinine increased, K is normal. Continue IVF. If Creatinine continue to increase, possible HD. Discussed with the patient. No urgent indication for HD now. Problem Qualifiers (1) STEMI (ST elevation myocardial infarction): Qualified Codes: I21.3 - ST elevation (STEMI) myocardial infarction of unspecified site Adebayo Balderas MD Jul 30, 2017 16:24
[2017-07-30] MEDS: ATORVASTATIN 40 MG TAB PO SCH (20:54)
[2017-07-30] MEDS: INSULIN DETEMIR 100 UNITS/ML VIAL SQ SCH (20:55)
[2017-07-31] VITALS (19 sets, daily range): BP systolic 128–190; BP diastolic 71–94; PULSE 56–76; RESP 16–20; TEMP 97.5–98.5; O2SAT 97–98
[2017-07-31] MEDS: LEVOTHYROXINE SODIUM 50 MCG TAB PO SCH (06:21)
[2017-07-31 07:59] LABS: BICARBONATE 16.6 MEQ/L (21.0-32.0); POTASSIUM 4.6 MEQ/L (3.5-5.1)
[2017-07-31] MEDS: INSULIN ASPART SUPPLEMENTAL SCALE SQ SCH ×4 (08:00→23:04)
[2017-07-31] MEDS: LOW DOSE INSULIN NOVOLOG SUPPLEMENTAL SCALE SQ SCH ×4 (08:00→21:00)
[2017-07-31] MEDS: NICOTINE 14 MG/24 HR PATCH T-DERMAL SCH (08:43)
[2017-07-31] MEDS: amLODIPine BESYLATE 5 MG TAB PO SCH ×2 (08:43→23:05)
[2017-07-31] MEDS: ASPIRIN 81 MG CHEW TAB PO SCH (08:44)
[2017-07-31] MEDS: METOPROLOL TARTRATE 25 MG TAB PO SCH ×2 (08:44→23:06)
[2017-07-31] MEDS: hydrALAZINE HCL 25 MG TAB PO SCH ×3 (08:44→19:00)
[2017-07-31] MEDS: CLOPIDOGREL 75 MG TAB PO SCH (08:44)
[2017-07-31] MEDS: REMOVE OLD PATCH T-DERMAL SCH (08:45)
--- NOTE | 2017-07-31 10:37 | HHI.PR ---
Subjective Remarks Lower extremity edema worsening. No shortness of breath. Renal functions continued to decline. Objective Vitals Vital Signs Date Time Temp Pulse Resp B/P (MAP) Pulse Ox O2 Delivery O2 Flow Rate FiO2 07/31/17 10:11 56 07/31/17 09:00 64 07/31/17 08:00 60 07/31/17 07:45 97.5 60 18 149/71 (97) 98 07/31/17 07:00 61 07/31/17 06:00 76 07/31/17 05:00 60 07/31/17 04:00 60 07/31/17 03:15 97.9 61 16 128/73 (91) 98 07/31/17 03:00 58 07/31/17 02:00 58 07/31/17 01:00 58 07/31/17 00:00 58 07/30/17 23:30 98.1 64 16 148/72 (97) 99 07/30/17 23:00 60 07/30/17 22:00 60 07/30/17 21:00 64 07/30/17 20:00 66 07/30/17 20:00 98.5 65 16 152/80 (104) 97 07/30/17 19:00 62 07/30/17 18:05 65 07/30/17 17:16 58 07/30/17 16:26 61 07/30/17 15:20 61 07/30/17 15:20 98.5 60 17 145/79 (101) 100 07/30/17 14:01 58 07/30/17 13:46 59 07/30/17 12:00 58 07/30/17 11:29 60 07/30/17 11:29 98.5 60 17 145/79 (101) 100 I/O 07/30/17 07/30/17 07/30/17 07/31/17 07/31/17 07/31/17 07:00 15:00 23:00 07:00 15:00 23:00 Intake Total 240 ml 998 ml 680 ml 480 ml Output Total 700 ml 550 ml Balance 240 ml 998 ml -20 ml -70 ml Intake Oral 240 ml 680 ml 480 ml IV Total 998 ml Output Urine Total 700 ml 550 ml # Voids 2 3 # Bowel Movements 0 Result Diagram: 07/30/17 1235 07/31/17 0446 Objective Remarks GENERAL: This is a well-nourished, well-developed patient, in no apparent distress. CARDIOVASCULAR: Normal rate and regular rhythm without murmurs, gallops, or rubs. RESPIRATORY: Good respiratory efforts. Breath sounds equal and clear to auscultation bilaterally. GASTROINTESTINAL: Abdomen soft, non-tender, non-distended. Normal active bowel sounds MUSCULOSKELETAL: 2+ bilateral lower extremity edema NEURO: Alert & Oriented x4 to person, place, time, situation. Moves all ext x4 PSYCH: Appropriate mood and affect. A/P Problem List: (1) Alcohol abuse ICD Code: F10.10 - Alcohol abuse, uncomplicated (2) CAD (coronary artery disease) ICD Code: I25.10 - Atherosclerotic heart disease of [place] coronary artery without angina pectoris (3) Hypertension ICD Code: I10 - Essential (primary) hypertension (4) Tobacco abuse ICD Code: Z72.0 - Tobacco use (5) Hyperlipidemia ICD Code: E78.5 - Hyperlipidemia, unspecified (6) Diabetes ICD Code: E11.9 - Type 2 diabetes mellitus without complications (7) STEMI (ST elevation myocardial infarction) ICD Code: I21.3 - ST elevation (STEMI) myocardial infarction of unspecified site Status: Acute Assessment and Plan 52-year-old female admitted for: Acute myocardial infarction. Status post cardiac catheterization with stent to the proximal LAD -Continue aspirin, Plavix, Norvasc, and statin. Acute on chronic kidney disease: Likely related to NC and contrast -Renal functions continued to decline. - Nephrology following. Patient to start dialysis IR consulted for Vascath. Diabetes mellitus: Untreated. Hemoglobin A1c 7.3 Given renal failure. Continue sliding scale insulin with Accu-Cheks. - Diabetes education Hypertension: Continue Norvasc and hydralazine. Hyperlipidemia: continue on statin Smoking and alcohol cessation discussed with the patient. Problem Qualifiers (1) STEMI (ST elevation myocardial infarction): Qualified Codes: I21.3 - ST elevation (STEMI) myocardial infarction of unspecified site Hardik King MD Jul 31, 2017 10:37
[2017-07-31] MEDS ORDERED: SODIUM CHLOR 0.9% 1000 ML INJ 1,000 ML IV PRN (11:09)
[2017-07-31] MEDS ORDERED: SODIUM CHLOR 0.9% 1000 ML INJ 1,000 ML OTHER PRN ×2 (11:09)
--- NOTE | 2017-07-31 11:11 | HHI.NPPN ---
Subjective History of Present Illness 52-year-old female with past medical history of diabetes mellitus for the last more than 20 years, history of hypertension and history of chronic kidney disease, came to the hospital with complaint of chest pain and shortness of breath. I was called to see the patient because of elevated BUN and creatinine. Additional Remarks Patient is alert, no SOB, no chest pain, not in distress. Review of Systems Respiratory Lungs: SOB, Wheeze Cardiovascular Cardiac: Chest Pain, Edema, PENNY Objective Data Data Vital Signs Date Time Temp Pulse Resp B/P (MAP) Pulse Ox O2 Delivery O2 Flow Rate FiO2 07/31/17 11:05 59 07/31/17 10:11 56 07/31/17 09:00 64 07/31/17 08:00 60 07/31/17 07:45 97.5 60 18 149/71 (97) 98 07/31/17 07:00 61 07/31/17 06:00 76 07/31/17 05:00 60 07/31/17 04:00 60 07/31/17 03:15 97.9 61 16 128/73 (91) 98 07/31/17 03:00 58 07/31/17 02:00 58 07/31/17 01:00 58 07/31/17 00:00 58 07/30/17 23:30 98.1 64 16 148/72 (97) 99 07/30/17 23:00 60 07/30/17 22:00 60 07/30/17 21:00 64 07/30/17 20:00 66 07/30/17 20:00 98.5 65 16 152/80 (104) 97 07/30/17 19:00 62 07/30/17 18:05 65 07/30/17 17:16 58 07/30/17 16:26 61 07/30/17 15:20 61 07/30/17 15:20 98.5 60 17 145/79 (101) 100 07/30/17 14:01 58 07/30/17 13:46 59 07/30/17 12:00 58 07/30/17 11:29 60 07/30/17 11:29 98.5 60 17 145/79 (101) 100 -: 07/30/17 1235 07/31/17 0446 Physical Exam General Appearance: No Acute Distress, Comfortable Eyes Eye Exam: Pupils Equal Throat Throat Exam: Oral Mucosa [place] & Moist Neck Neck Exam: Neck Supple Pulmonary Resp Exam: Breath Sounds Equal, No Distress, Rhonchi, Decreased Bases Cardiology CV Exam: Regular, Normal Sinus Rhythm Gastrointestinal/Abdomen GI Exam: Soft, Non-Tender, Bowel Sounds Present, Non-Distended Extremeties Extremities Exam: Trace Edema Neurologic Neuro Exam: Alert, Awake, Oriented Psychiatric Psych Exam: Appropriate Responses Assessment/Plan Assessment Summary: EUGENE/Acute Renal Failure, Hypertension, CKD Stage IV Problem List: (1) STEMI (ST elevation myocardial infarction) ICD Codes: I21.3 - ST elevation (STEMI) myocardial infarction of unspecified site Status: Acute (2) CAD (coronary artery disease) ICD Codes: I25.10 - Atherosclerotic heart disease of [place] coronary artery without angina pectoris (3) Diabetes ICD Codes: E11.9 - Type 2 diabetes mellitus without complications (4) Hyperlipidemia ICD Codes: E78.5 - Hyperlipidemia, unspecified (5) Hypertension ICD Codes: I10 - Essential (primary) hypertension Plan Patient remain non oliguric. BP is better. She most likely has chronic kidney disease. Possibly related to Hypertensive or renovascular disease. Now also has EUGENE, related to Acute [place] and contrast. no improvement in creatinine 6.7 will get a Vascath in place discussed dialysis she is agreeable to it follow BMP Problem Qualifiers (1) STEMI (ST elevation myocardial infarction): Qualified Codes: I21.3 - ST elevation (STEMI) myocardial infarction of unspecified site Cierra Reese MD Jul 31, 2017 11:11
[2017-07-31] MEDS ORDERED: ACETAMINOPHEN 325 MG TAB PO PRN (11:15)
[2017-07-31] MEDS ORDERED: diphenhydrAMINE HCL 25 MG CAP PO PRN (11:15)
[2017-07-31] MEDS ORDERED: GENTAMICIN SULFATE (DIALYSIS USE ONLY) 20 MG/2 ML VIAL OTHER PRN (11:15)
[2017-07-31] MEDS ORDERED: ALBUMIN HUMAN 25% 25 GM/100 ML BAGP IV PRN (11:15)
[2017-07-31] MEDS ORDERED: GELATIN 12 MM/7 MM FOAM TOP PRN (11:15)
[2017-07-31] MEDS ORDERED: NITROGLYCERIN 0.4 MG SL 25 TABS/BTL SL PRN (11:15)
[2017-07-31] MEDS ORDERED: ONDANSETRON HCL 4 MG/2 ML VIAL IV PUSH PRN (11:15)
[2017-07-31] MEDS ORDERED: HEPARIN SODIUM - IV 10,000 UNITS/10 ML VIAL IV FLUSH PRN (11:15)
[2017-07-31] MEDS ORDERED: cloNIDine HCL 0.1 MG TAB PO PRN (11:15)
[2017-07-31] MEDS ORDERED: SODIUM CHLORIDE 0.9% FLUSH 10 ML FLUSH IV FLUSH PRN (11:15)
[2017-07-31] MEDS ORDERED: MANNITOL 12.5 GM/50 ML VIAL IV PRN (11:15)
[2017-07-31] MEDS ORDERED: HEPARIN SODIUM - IV 10,000 UNITS/10 ML VIAL PRN (11:15)
[2017-07-31] MEDS ORDERED: EPOETIN ALFA 4,000 UNITS/ML VIAL IV PRN (12:15)
--- NOTE | 2017-07-31 13:09 | PD.CARD.PN ---
Subjective Subjective Remarks The patient denies CP or SOB. BLE edema improved with Lasix IV. Improved UO. Cr continues to trend up. No major electrolyte abnormalities. (Rose Soto) Objective Medications Current Medications Medications (Trade) Dose Ordered Sig/Stephan Route Start Time Stop Time Status Last Admin (NS Flush) 2 ml UNSCH PRN IV FLUSH 07/27/17 14:00 (NS Flush) 2 ml UNSCH PRN IVF 07/27/17 16:00 (Tylenol) 325 mg Q4H PRN PO 07/27/17 18:30 07/28/17 23:06 (Percocet 5-325 Mg) 1 tab Q4H PRN PO 07/27/17 18:30 (Percocet 10-325 Mg) 1 tab Q4H PRN PO 07/27/17 18:30 (Restoril) 15 mg HS PRN PO 07/27/17 18:30 (Aspirin Chew) 81 mg DAILY PO 07/28/17 09:00 07/31/17 08:44 (Plavix) 75 mg DAILY PO 07/28/17 09:00 07/31/17 08:44 (Atropine Inj) 0.5 mg UNSCH PRN IV PUSH 07/27/17 18:30 (Zofran Inj) 4 mg Q4H PRN IV PUSH 07/27/17 18:30 07/28/17 21:25 (Lopressor) 50 mg BID PO 07/27/17 21:00 07/31/17 08:44 (D50w (Vial) Inj) 50 ml UNSCH PRN IV PUSH 07/27/17 19:15 (Glucagon Inj) 1 mg UNSCH PRN OTHER 07/27/17 19:15 (NovoLOG SUPPLEMENTAL SCALE) 1 ACHS SLIDING SCALE SQ 07/27/17 21:00 07/28/17 08:22 Nitroglycerin/ Dextrose 250 ml @ 6 mls/hr TITRATE PRN IV 07/27/17 22:45 07/28/17 18:43 (Lopressor Inj) 5 mg Q1H PRN IV PUSH 07/27/17 22:45 07/28/17 22:26 (Lipitor) 40 mg HS PO 07/28/17 21:00 07/30/17 20:54 (Levemir Inj) 10 units HS SQ 07/28/17 21:00 07/30/17 20:55 (Catapres) 0.1 mg Q4H PRN PO 07/28/17 08:45 07/28/17 23:06 (D50w (Vial) Inj) 50 ml UNSCH PRN IV 07/28/17 08:45 (Glucagon Inj) 1 mg UNSCH PRN OTHER 07/28/17 08:45 (NovoLOG SUPPLEMENTAL SCALE) 1 ACHS SLIDING SCALE SQ 07/28/17 11:00 07/31/17 12:00 (Habitrol 14 Mg Patch.24 Hr) 1 patch DAILY T-DERMAL 07/29/17 09:00 07/31/17 08:43 Miscellaneous Information 1 DAILY T-DERMAL 07/28/17 09:00 07/31/17 08:45 (Norvasc) 5 mg BID PO 07/28/17 21:00 07/31/17 08:43 (Apresoline) 25 mg TID PO 07/28/17 18:00 07/31/17 12:46 (Compazine Inj) 5 mg Q8H PRN IV PUSH 07/28/17 23:45 (Synthroid) 50 mcg DAILY@0600 PO 07/29/17 13:00 07/31/17 06:21 Sodium Chloride 1,000 ml @ 0 mls/hr Q0M PRN OTHER 07/31/17 11:09 (Heparin Inj) 8,000 units UNSCH PRN IV FLUSH 07/31/17 11:15 Sodium Chloride 1,000 ml @ 200 mls/hr Q5H PRN IV 07/31/17 11:09 Sodium Chloride 1,000 ml @ 0 mls/hr Q0M PRN OTHER 07/31/17 11:09 (Mannitol Inj) 12.5 gm UNSCH PRN IV 07/31/17 11:15 (Albumin 25% Inj) 25 gm UNSCH PRN IV 07/31/17 11:15 (NS Flush) 5 ml UNSCH PRN IV FLUSH 07/31/17 11:15 (Heparin Inj) UNSCH PRN .XX 07/31/17 11:15 (Gentamicin (Dialysis) Inj) 20 mg UNSCH PRN OTHER 07/31/17 11:15 (Zofran Inj) 4 mg UNSCH PRN IV PUSH 07/31/17 11:15 (Tylenol) 650 mg UNSCH PRN PO 07/31/17 11:15 (Benadryl) 25 mg UNSCH PRN PO 07/31/17 11:15 (Nitrostat Sl) 0.4 mg UNSCH PRN SL 07/31/17 11:15 (Catapres) 0.1 mg UNSCH PRN PO 07/31/17 11:15 (Epogen Inj) 4,000 units UNSCH PRN IV 07/31/17 12:15 (Gelfoam 12 Mm/7 Mm Top) 1 foam UNSCH PRN TOP 07/31/17 11:15 Vital Signs / I&O Vital Signs Date Time Temp Pulse Resp B/P (MAP) Pulse Ox O2 Delivery O2 Flow Rate FiO2 07/31/17 12:00 57 07/31/17 11:55 98.3 60 18 145/75 (98) 98 07/31/17 11:05 59 07/31/17 10:11 56 07/31/17 09:00 64 07/31/17 08:00 60 07/31/17 07:45 97.5 60 18 149/71 (97) 98 07/31/17 07:00 61 07/31/17 06:00 76 07/31/17 05:00 60 07/31/17 04:00 60 07/31/17 03:15 97.9 61 16 128/73 (91) 98 07/31/17 03:00 58 07/31/17 02:00 58 07/31/17 01:00 58 07/31/17 00:00 58 07/30/17 23:30 98.1 64 16 148/72 (97) 99 07/30/17 23:00 60 07/30/17 22:00 60 07/30/17 21:00 64 07/30/17 20:00 66 07/30/17 20:00 98.5 65 16 152/80 (104) 97 07/30/17 19:00 62 07/30/17 18:05 65 07/30/17 17:16 58 07/30/17 16:26 61 07/30/17 15:20 61 07/30/17 15:20 98.5 60 17 145/79 (101) 100 07/30/17 14:01 58 07/30/17 13:46 59 I/O 907/30/17 07/30/17 07/31/17 07/31/17 07/31/17 07:00 15:00 23:00 07:00 15:00 23:00 Intake Total 240 ml 998 ml 680 ml 480 ml Output Total 700 ml 550 ml Balance 240 ml 998 ml -20 ml -70 ml Intake Oral 240 ml 680 ml 480 ml IV Total 998 ml Output Urine Total 700 ml 550 ml # Voids 2 3 # Bowel Movements 0 Physical Exam GENERAL: Obese, middle age female SKIN: Warm and dry. HEAD: Normocephalic. EYES: No scleral icterus. No injection or drainage. NECK: Supple, trachea midline. No JVD or lymphadenopathy. CARDIOVASCULAR: Regular rate and rhythm without murmurs, gallops, or rubs. RESPIRATORY: Breath sounds equal bilaterally. No accessory muscle use. GASTROINTESTINAL: Abdomen soft, non-tender, nondistended. MUSCULOSKELETAL: No cyanosis, 1+ BLE edema BACK: Nontender without obvious deformity. No CVA tenderness. Laboratory Laboratory Tests Test 07/31/17 04:46 Blood Urea Nitrogen 82 MG/DL Creatinine 6.73 MG/DL Random Glucose 111 MG/DL Calcium Level 8.6 MG/DL Sodium Level 138 MEQ/L Potassium Level 4.6 MEQ/L Chloride Level 109 MEQ/L Carbon Dioxide Level 16.6 MEQ/L Anion Gap 12 MEQ/L Estimat Glomerular Filtration Rate 7 ML/MIN (Rose Soto) Assessment and Plan Assessment and Plan STEMI s/p cardiac cath with LAD coronary stent. EF 55-60% HTN HLD Diabetes Acute on chronic renal failure pending possible dialysis PLAN: May need dialysis. Nephrology following. Continue ASA, Plavix, BB, norvasc and statin. She is not a candidate for [facility] or ARB due to EUGENE Okay to transfer out of [facility] from cardiac standpoint. Patient seen and evaluated by Dr Scott who completed face to face encounter and physical exam, and participated in evaluation and management. (Rose Soto) Assessment and Plan The exam, history, and the medical decision-making described in the above note were completed with the assistance of the mid-level provider. I reviewed and agree with the findings presented. I attest that I had a [id number] encounter with the patient on the same day, and personally performed and documented my assessment and findings in the medical record. Overall feeling OK hopefully will recover renal function (Rodrigo Scott MD) Rose Soto Jul 31, 2017 13:09 Rodrigo Scott MD Jul 31, 2017 17:10
[2017-07-31] MEDS ORDERED: ATROPINE SULFATE 1 MG/10 ML SYRINGE ONE (13:42)
[2017-07-31] MEDS ORDERED: EPINEPHrine HCL (1:10,000) 1 MG/10 ML SYRINGE ONE (13:42)
[2017-07-31] MEDS ORDERED: SODIUM CHLORIDE 0.9% FLUSH 10 ML FLUSH IVF PRN (15:45)
[2017-07-31] MEDS ORDERED: HEPARIN SODIUM - IV 2,000 UNITS/2 ML VIAL IV FLUSH PRN (15:45)
[2017-07-31 15:50] LABS: MYELOPEROXIDASE LESS THAN 1.0 AI (<1.0); PROTEINASE-3 LESS THAN 1.0 AI (<1.0)
[2017-07-31] MEDS: TEMAZEPAM 15 MG CAP PO PRN (23:02)
[2017-07-31] MEDS: INSULIN DETEMIR 100 UNITS/ML VIAL SQ SCH (23:03)
[2017-07-31] MEDS: ATORVASTATIN 40 MG TAB PO SCH (23:05)
[2017-08-01] VITALS: BP 195/84; PULSE 68; RESP 20; TEMP 98.3; O2SAT 97
[2017-08-01] MEDS: cloNIDine HCL 0.1 MG TAB PO PRN (06:29)
[2017-08-01] MEDS: LEVOTHYROXINE SODIUM 50 MCG TAB PO SCH (06:29)
[2017-08-01 08:00] VITALS: BP 161/79; PULSE 61; PULSE 62; RESP 18; TEMP 97.8; O2SAT 96
[2017-08-01] MEDS: INSULIN ASPART SUPPLEMENTAL SCALE SQ SCH ×4 (08:00→21:26)
[2017-08-01] MEDS: LOW DOSE INSULIN NOVOLOG SUPPLEMENTAL SCALE SQ SCH ×2 (08:00→12:00)
[2017-08-01] MEDS: NICOTINE 14 MG/24 HR PATCH T-DERMAL SCH ×2 (09:00→13:08)
[2017-08-01] MEDS: CLOPIDOGREL 75 MG TAB PO SCH (09:00)
[2017-08-01] MEDS: ASPIRIN 81 MG CHEW TAB PO SCH (09:00)
[2017-08-01] MEDS: METOPROLOL TARTRATE 25 MG TAB PO SCH ×2 (09:00→21:26)
[2017-08-01] MEDS: REMOVE OLD PATCH T-DERMAL SCH ×2 (09:00→13:08)
[2017-08-01] MEDS: hydrALAZINE HCL 25 MG TAB PO SCH ×3 (09:00→17:15)
[2017-08-01] MEDS: amLODIPine BESYLATE 5 MG TAB PO SCH ×2 (09:00→21:26)
--- NOTE | 2017-08-01 10:09 | HHI.NPPN ---
Subjective History of Present Illness 52-year-old female with past medical history of diabetes mellitus for the last more than 20 years, history of hypertension and history of chronic kidney disease, came to the hospital with complaint of chest pain and shortness of breath. I was called to see the patient because of elevated BUN and creatinine. Additional Remarks patient was seen during dialysis. 2nd dialysis treatment: on 3K, 2.5 hours, UF: 2 liters, tolerating it well. Review of Systems Respiratory Lungs: SOB, Wheeze Cardiovascular Cardiac: Chest Pain, Edema, PENNY Objective Data Data Vital Signs Date Time Temp Pulse Resp B/P (MAP) Pulse Ox O2 Delivery O2 Flow Rate FiO2 08/01/17 08:00 97.8 62 18 161/79 (106) 96 08/01/17 00:00 98.3 68 20 195/84 (121) 97 07/31/17 20:00 69 07/31/17 20:00 98.5 66 20 190/92 (124) 97 182/94 (123) 07/31/17 14:00 59 07/31/17 13:00 61 07/31/17 12:00 57 07/31/17 11:55 98.3 60 18 145/75 (98) 98 07/31/17 11:05 59 07/31/17 10:11 56 -: 07/30/17 1235 07/31/17 0446 Physical Exam General Appearance: No Acute Distress, Comfortable Eyes Eye Exam: Pupils Equal Throat Throat Exam: Oral Mucosa [place] & Moist Neck Neck Exam: Neck Supple Pulmonary Resp Exam: Breath Sounds Equal, No Distress, Rhonchi, Decreased Bases Cardiology CV Exam: Regular, Normal Sinus Rhythm Gastrointestinal/Abdomen GI Exam: Soft, Non-Tender, Bowel Sounds Present, Non-Distended Extremeties Extremities Exam: Trace Edema Neurologic Neuro Exam: Alert, Awake, Oriented Psychiatric Psych Exam: Appropriate Responses Assessment/Plan Assessment Summary: EUGENE/Acute Renal Failure, Hypertension, CKD Stage IV Problem List: (1) STEMI (ST elevation myocardial infarction) ICD Codes: I21.3 - ST elevation (STEMI) myocardial infarction of unspecified site Status: Acute (2) CAD (coronary artery disease) ICD Codes: I25.10 - Atherosclerotic heart disease of [place] coronary artery without angina pectoris (3) Diabetes ICD Codes: E11.9 - Type 2 diabetes mellitus without complications (4) Hyperlipidemia ICD Codes: E78.5 - Hyperlipidemia, unspecified (5) Hypertension ICD Codes: I10 - Essential (primary) hypertension Plan Acute on chronic kidney disease. UA is not available. Creatinine was 1.15 in 2015. Renal US is unremarkable. It remains to be seen if her renal function will improve. Problem Qualifiers (1) STEMI (ST elevation myocardial infarction): Qualified Codes: I21.3 - ST elevation (STEMI) myocardial infarction of unspecified site Vasyl Riojas MD Aug 01, 2017 10:09
[2017-08-01 10:31] LABS: HEMATOCRIT 27.9 % (35.0-46.0); MEAN CORPUSCULAR HEMOGLOBIN 29.6 PG (27.0-34.0); PLATELET COUNT 153 TH/MM3 (150-450); RED BLOOD COUNT 3.21 MIL/MM3 (4.00-5.30); RED CELL DISTRIBUTION WIDTH 14.8 % (11.6-17.2); REVIEW FLAG FINAL; WHITE BLOOD COUNT 8.4 TH/MM3 (4.0-11.0)
[2017-08-01 11:09] LABS: BICARBONATE 21.7 MEQ/L (21.0-32.0); POTASSIUM 4.2 MEQ/L (3.5-5.1)
--- NOTE | 2017-08-01 11:28 | HHI.PR ---
Subjective Remarks Patient underwent dialysis again today. She report lower extremity swelling is improved. No shortness of breath. Objective Vitals Vital Signs Date Time Temp Pulse Resp B/P (MAP) Pulse Ox O2 Delivery O2 Flow Rate FiO2 08/01/17 08:00 97.8 62 18 161/79 (106) 96 08/01/17 00:00 98.3 68 20 195/84 (121) 97 07/31/17 20:00 69 07/31/17 20:00 98.5 66 20 190/92 (124) 97 182/94 (123) 07/31/17 14:00 59 07/31/17 13:00 61 07/31/17 12:00 57 07/31/17 11:55 98.3 60 18 145/75 (98) 98 I/O 07/31/17 07/31/17 07/31/17 08/01/17 08/01/17 08/01/17 07:00 15:00 23:00 07:00 15:00 23:00 Intake Total 480 ml 480 ml Output Total 550 ml 2300 ml Balance -70 ml -2300 ml 480 ml Intake Oral 480 ml 480 ml Output Urine Total 550 ml Hemodialysis 2300 ml # Voids 2 # Bowel Movements 0 Result Diagram: 08/01/17 0849 08/01/17 0849 Objective Remarks GENERAL: This is a well-nourished, well-developed patient, in no apparent distress. CARDIOVASCULAR: Normal rate and regular rhythm without murmurs, gallops, or rubs. RESPIRATORY: Good respiratory efforts. Breath sounds equal and clear to auscultation bilaterally. GASTROINTESTINAL: Abdomen soft, non-tender, non-distended. Normal active bowel sounds MUSCULOSKELETAL: 2+ bilateral lower extremity edema NEURO: Alert & Oriented x4 to person, place, time, situation. Moves all ext x4 PSYCH: Appropriate mood and affect. A/P Problem List: (1) Alcohol abuse ICD Code: F10.10 - Alcohol abuse, uncomplicated (2) CAD (coronary artery disease) ICD Code: I25.10 - Atherosclerotic heart disease of [place] coronary artery without angina pectoris (3) Hypertension ICD Code: I10 - Essential (primary) hypertension (4) Tobacco abuse ICD Code: Z72.0 - Tobacco use (5) Hyperlipidemia ICD Code: E78.5 - Hyperlipidemia, unspecified (6) Diabetes ICD Code: E11.9 - Type 2 diabetes mellitus without complications (7) STEMI (ST elevation myocardial infarction) ICD Code: I21.3 - ST elevation (STEMI) myocardial infarction of unspecified site Status: Acute Assessment and Plan 52-year-old female admitted for: Acute myocardial infarction. Status post cardiac catheterization with stent to the proximal LAD -Continue aspirin, Plavix, Norvasc, and statin. Acute on chronic kidney disease: Likely related to [place] and contrast. - Nephrology following. Patient requiring dialysis. Unclear if she will regain renal function. - Continue to monitor. Diabetes mellitus: Untreated. Hemoglobin A1c 7.3 Given renal failure. - Continue sliding scale insulin with Accu-Cheks. - Diabetes education Hypertension: Continue Norvasc and hydralazine. Hyperlipidemia: continue on statin Smoking and alcohol cessation discussed with the patient. Problem Qualifiers (1) STEMI (ST elevation myocardial infarction): Qualified Codes: I21.3 - ST elevation (STEMI) myocardial infarction of unspecified site Hardik King MD Aug 01, 2017 11:28
[2017-08-01 12:00] VITALS: BP 156/77; PULSE 64; RESP 22; TEMP 97.6; O2SAT 96
[2017-08-01] MEDS ORDERED: MAGNESIUM HYDROXIDE SUSP 30 ML CUP PO PRN (14:15)
[2017-08-01] MEDS ORDERED: BISACODYL 10 MG SUPP RECTAL PRN (14:15)
[2017-08-01] MEDS ORDERED: LACTULOSE SYRUP 20 GM/30 ML CUP PO PRN (14:15)
[2017-08-01] MEDS ORDERED: SENNOSIDES 8.6 MG TAB PO PRN (14:15)
[2017-08-01 14:57] VITALS: BP 157/80; PULSE 66; RESP 20; TEMP 97.9; O2SAT 97
[2017-08-01 20:00] VITALS: BP 177/85; PULSE 65; PULSE 77; RESP 18; TEMP 98; O2SAT 96
[2017-08-01] MEDS: ATORVASTATIN 40 MG TAB PO SCH (21:26)
[2017-08-01] MEDS: TEMAZEPAM 15 MG CAP PO PRN (21:26)
[2017-08-01] MEDS: INSULIN DETEMIR 100 UNITS/ML VIAL SQ SCH (21:27)
[2017-08-01 22:35] VITALS: BP 160/98
[2017-08-02] VITALS (9 sets, daily range): BP systolic 118–161; BP diastolic 55–77; PULSE 55–61; RESP 18; TEMP 97.7–98.2; O2SAT 96–98
[2017-08-02] MEDS: LEVOTHYROXINE SODIUM 50 MCG TAB PO SCH (04:43)
[2017-08-02] MEDS: INSULIN ASPART SUPPLEMENTAL SCALE SQ SCH ×4 (08:00→20:55)
[2017-08-02] MEDS: METOPROLOL TARTRATE 25 MG TAB PO SCH ×2 (09:03→20:54)
[2017-08-02] MEDS: CLOPIDOGREL 75 MG TAB PO SCH (09:03)
[2017-08-02] MEDS: ASPIRIN 81 MG CHEW TAB PO SCH (09:03)
[2017-08-02] MEDS: amLODIPine BESYLATE 5 MG TAB PO SCH ×2 (09:03→20:54)
[2017-08-02] MEDS: hydrALAZINE HCL 25 MG TAB PO SCH ×3 (09:03→18:18)
[2017-08-02] MEDS: NICOTINE 14 MG/24 HR PATCH T-DERMAL SCH (09:06)
[2017-08-02] MEDS: cloNIDine HCL 0.1 MG TAB PO PRN (09:13)
--- NOTE | 2017-08-02 10:21 | HHI.PR ---
Subjective Remarks Follow up hypertension, DM, status post acute OR. Patient seen and examined. Sitting up in recliner chair comfortably in no apparent distress. Denies any new acute complaints overnight. Tolerating PO intake, denies any nausea or vomiting. Denies any recent fever, chills, cough, shortness of breath, headache , abdominal pain, diarrhea or dysuria. Positive BM. Eager to go home. Afebrile. Objective Vitals Vital Signs Date Time Temp Pulse Resp B/P (MAP) Pulse Ox O2 Delivery O2 Flow Rate FiO2 08/02/17 10:12 97.9 60 18 131/65 (87) 97 08/02/17 08:39 97 21 08/02/17 08:00 97.8 58 18 161/76 (104) 96 08/02/17 04:00 Room Air 08/02/17 04:00 98.1 58 18 143/67 (92) 97 08/02/17 00:00 Room Air 08/02/17 00:00 98.2 61 18 118/55 (76) 96 08/01/17 22:35 160/98 (118) 08/01/17 21:30 Room Air 08/01/17 20:00 98.0 65 18 177/85 (115) 96 08/01/17 20:00 77 08/01/17 16:00 97 Room Air 08/01/17 14:57 97.9 66 20 157/80 (105) 97 08/01/17 12:00 97.6 64 22 156/77 (103) 96 I/O 08/01/17 08/01/17 08/01/17 08/02/17 08/02/17 08/02/17 07:00 15:00 23:00 07:00 15:00 23:00 Intake Total 480 ml 480 ml 360 ml Output Total 2000 ml 300 ml Balance 480 ml -1520 ml 60 ml Intake Oral 480 ml 480 ml 360 ml Output Urine Total 300 ml Hemodialysis 2000 ml # Voids 2 3 1 2 # Bowel Movements 0 0 Result Diagram: 08/01/17 0849 08/01/17 0849 Imaging Last Impressions Renal Ultrasound 07/28/17 0000 Signed Impressions: Service Date/Time: Friday, July 28, 2017 10:58 - CONCLUSION: 1. The examination is within normal limits. Anatoly Wong MD Chest X-Ray 07/27/17 0000 Signed Impressions: Service Date/Time: Thursday, July 27, 2017 16:13 - CONCLUSION: No acute disease. Rhett Miller MD Objective Remarks GENERAL: This is a well-nourished, well-developed patient, in no apparent distress. HEENT: PERRL. EOMs intact. NECK: Supple. No JVD. Right SC vas cath in place. CARDIOVASCULAR: Normal rate and regular rhythm without murmurs, gallops, or rubs. RESPIRATORY: Good respiratory efforts. Breath sounds equal and clear to auscultation bilaterally. GASTROINTESTINAL: Abdomen soft, non-tender, non-distended. Normal active bowel sounds. MUSCULOSKELETAL: 2+ bilateral lower extremity edema NEURO: Alert & Oriented x4 to person, place, time, situation. Moves all ext x4 PSYCH: Appropriate mood and affect. A/P Problem List: (1) Alcohol abuse ICD Code: F10.10 - Alcohol abuse, uncomplicated (2) CAD (coronary artery disease) ICD Code: I25.10 - Atherosclerotic heart disease of [place] coronary artery without angina pectoris (3) Hypertension ICD Code: I10 - Essential (primary) hypertension (4) Tobacco abuse ICD Code: Z72.0 - Tobacco use (5) Hyperlipidemia ICD Code: E78.5 - Hyperlipidemia, unspecified (6) Diabetes ICD Code: E11.9 - Type 2 diabetes mellitus without complications (7) STEMI (ST elevation myocardial infarction) ICD Code: I21.3 - ST elevation (STEMI) myocardial infarction of unspecified site Status: Acute Assessment and Plan 52-year-old female admitted for: Acute myocardial infarction. Status post cardiac catheterization with stent to the proximal LAD -Continue aspirin, Plavix, Norvasc, and statin. Acute on chronic kidney disease: Likely related to [place] and contrast. - Nephrology following. Patient requiring dialysis. Unclear if she will regain renal function. Awaiting further recommendations and plan. Creatinine currently 4.88. - Continue to monitor. Diabetes mellitus: Untreated. Hemoglobin A1c 7.3 Given renal failure. - Continue sliding scale insulin with Accu-Cheks. Well controlled at this time. - Diabetes education Hypertension: Continue Norvasc and hydralazine. Mildly elevated at this time. Clonidine given PRN. Will continue to monitor BPs. Hyperlipidemia: continue on statin Smoking and alcohol cessation discussed with the patient. Discharge Planning Last CM note: 07/30/17 CM RECEIVED VISIT FROM SUBHASH (FROM [facility]) IN REGARDS TO PATIENT PREPARING TO BE CHRONIC VS ACUTE ESRD, NEPHROLOGY HAS NOT MADE THAT DETERMINATION YET , THEY WILL CONTINUE TO FOLLOW TO APPLY FOR SSI/DISABILITY AND MEDICAID FOR THIS PATIENT IF AND WHEN PT IS DEEMED CHRONIC DIALYSIS, AT PRESENT PATIENT IS SELF PAY, CM WILL CONTINUE TO FOLLOW FOR MD ORDERS AND PRN. Problem Qualifiers (1) STEMI (ST elevation myocardial infarction): Qualified Codes: I21.3 - ST elevation (STEMI) myocardial infarction of unspecified site Sharlene Aguirre Aug 02, 2017 10:21
[2017-08-02 18:43] LABS: BACTERIA, URINE RARE /hpf; BLOOD, URINE LARGE (NEG); COMMENT (UR) CULT NOT INDICATED; CULTURE IF INDICATED CULT NOT INDICATED; GLUCOSE,URINE 70 mg/dL (NEG); KETONE, URINE NEG (NEG); NITRITE,URINE NEG (NEG); PH, URINE 7.5 (5.0-8.5); SQUAMOUS EPITHELIAL CELL URINE 3 /hpf (0-5); URINE COLOR YELLOW (YELLW/STRAW)
[2017-08-02] MEDS: TEMAZEPAM 15 MG CAP PO PRN (20:54)
[2017-08-02] MEDS: ATORVASTATIN 40 MG TAB PO SCH (20:54)
[2017-08-02] MEDS: INSULIN DETEMIR 100 UNITS/ML VIAL SQ SCH (20:55)
[2017-08-03] VITALS (7 sets, daily range): BP systolic 110–175; BP diastolic 67–90; PULSE 54–94; RESP 18–20; TEMP 97.5–98.7; O2SAT 96–98
[2017-08-03] MEDS: LEVOTHYROXINE SODIUM 50 MCG TAB PO SCH (05:06)
[2017-08-03] MEDS: NICOTINE 14 MG/24 HR PATCH T-DERMAL SCH (08:52)
[2017-08-03] MEDS: hydrALAZINE HCL 25 MG TAB PO SCH (08:52)
[2017-08-03] MEDS: REMOVE OLD PATCH T-DERMAL SCH (08:52)
[2017-08-03] MEDS: ASPIRIN 81 MG CHEW TAB PO SCH (08:53)
[2017-08-03] MEDS: METOPROLOL TARTRATE 25 MG TAB PO SCH ×2 (08:53→21:17)
[2017-08-03] MEDS: CLOPIDOGREL 75 MG TAB PO SCH (08:53)
[2017-08-03] MEDS: INSULIN ASPART SUPPLEMENTAL SCALE SQ SCH ×4 (08:53→21:18)
[2017-08-03] MEDS: amLODIPine BESYLATE 5 MG TAB PO SCH (08:53)
--- NOTE | 2017-08-03 08:58 | RADRPT ---
EXAM DATE/TIME: 07/31/2017 13:41 [place] COMPARISON: No previous studies available for comparison. INDICATIONS : Patient with acute renal failure in need of temporary dialysis catheter. MEDICAL HISTORY : PA Thyroid disease Diabetes HTN Renal disease SURGICAL HISTORY : Cholicystectomy Appendectomy Tubal ligation Cardiac cath with LAD stent placement ENCOUNTER: Initial ACUITY: 3 days PAIN SCORE: 4/10 LOCATION: lower back FLUORO TIME: 1.2 minutes IMAGE SERIES: 1 ACCESS: Right internal jugular vein MEDICATION(S): 1.) 100 mcg fentanyl (Sublimaze) IV DEVICE(S): 1.) 14 [place] dual lumen 15 cm Schon catheter PROCEDURE : 1. Ultrasound guided venipuncture. 2. Fluoroscopic guidance. 3. Central line placement. The risks, benefits and alternatives to the procedure were explained and verbal and written consent w as obtained. The site was prepped in sterile fashion. Full sterile technique was used, including ca p, mask, sterile gloves and gown and a large sterile sheet. Hand hygiene and 2% chlorhexidine prep w as utilized per protocol for cutaneous antisepsis with appropriate dry time for site. Sterile gel an d sterile probe cover were utilized for ultrasound guidance. The skin and subcutaneous tissues were infiltrated with local anesthetic solution. A suitable site a dante the vein was selected with ultrasound and fluoroscopic guidance. A small incision was made. Th e vein was accessed under direct ultrasound visualization using the micropuncture technique. The yesi ropuncture set was exchanged for a 0.035 wire. The tract was dilated. The catheter was advanced int o position under direct fluoroscopic visualization. The catheter was fixed in place with suture and a sterile dressing was applied. The patient tolerated the procedure well and there were no complications. CONCLUSION: Uncomplicated line placement as above. Rhett Ray MD on August 03, 2017 at 8:56 Board Certified Radiologist. This report was verified electronically.
--- NOTE | 2017-08-03 09:18 | PD.CARD.PN ---
Subjective Subjective Remarks No CP or SOB. Increased BLE edema despite dialysis. Scheduled for dialysis tomorrow Objective Medications Current Medications Medications (Trade) Dose Ordered Sig/Stephan Route Start Time Stop Time Status Last Admin (NS Flush) 2 ml UNSCH PRN IV FLUSH 07/27/17 14:00 (NS Flush) 2 ml UNSCH PRN IVF 07/27/17 16:00 (Tylenol) 325 mg Q4H PRN PO 07/27/17 18:30 07/28/17 23:06 (Percocet 5-325 Mg) 1 tab Q4H PRN PO 07/27/17 18:30 08/02/17 19:17 (Percocet 10-325 Mg) 1 tab Q4H PRN PO 07/27/17 18:30 (Restoril) 15 mg HS PRN PO 07/27/17 18:30 08/02/17 20:54 (Aspirin Chew) 81 mg DAILY PO 07/28/17 09:00 08/03/17 08:53 (Plavix) 75 mg DAILY PO 07/28/17 09:00 08/03/17 08:53 (Atropine Inj) 0.5 mg UNSCH PRN IV PUSH 07/27/17 18:30 (Zofran Inj) 4 mg Q4H PRN IV PUSH 07/27/17 18:30 07/28/17 21:25 (Lopressor) 50 mg BID PO 07/27/17 21:00 08/03/17 08:53 Nitroglycerin/ Dextrose 250 ml @ 6 mls/hr TITRATE PRN IV 07/27/17 22:45 07/28/17 18:43 (Lopressor Inj) 5 mg Q1H PRN IV PUSH 07/27/17 22:45 07/28/17 22:26 (Lipitor) 40 mg HS PO 07/28/17 21:00 08/02/17 20:54 (Levemir Inj) 10 units HS SQ 07/28/17 21:00 08/02/17 20:55 (Catapres) 0.1 mg Q4H PRN PO 07/28/17 08:45 08/02/17 09:13 (D50w (Vial) Inj) 50 ml UNSCH PRN IV 07/28/17 08:45 (Glucagon Inj) 1 mg UNSCH PRN OTHER 07/28/17 08:45 (NovoLOG SUPPLEMENTAL SCALE) 1 ACHS SLIDING SCALE SQ 07/28/17 11:00 08/03/17 08:53 (Habitrol 14 Mg Patch.24 Hr) 1 patch DAILY T-DERMAL 07/29/17 09:00 08/03/17 08:52 Miscellaneous Information 1 DAILY T-DERMAL 07/28/17 09:00 08/03/17 08:52 (Norvasc) 5 mg BID PO 07/28/17 21:00 08/03/17 08:53 (Apresoline) 25 mg TID PO 07/28/17 18:00 08/03/17 08:52 (Compazine Inj) 5 mg Q8H PRN IV PUSH 07/28/17 23:45 (Synthroid) 50 mcg DAILY@0600 PO 07/29/17 13:00 08/03/17 05:06 Sodium Chloride 1,000 ml @ 0 mls/hr Q0M PRN OTHER 07/31/17 11:09 (Heparin Inj) 8,000 units UNSCH PRN IV FLUSH 07/31/17 11:15 Sodium Chloride 1,000 ml @ 200 mls/hr Q5H PRN IV 07/31/17 11:09 08/01/17 11:51 Sodium Chloride 1,000 ml @ 0 mls/hr Q0M PRN OTHER 07/31/17 11:09 (Mannitol Inj) 12.5 gm UNSCH PRN IV 07/31/17 11:15 (Albumin 25% Inj) 25 gm UNSCH PRN IV 07/31/17 11:15 (NS Flush) 5 ml UNSCH PRN IV FLUSH 07/31/17 11:15 (Heparin Inj) UNSCH PRN .XX 07/31/17 11:15 08/01/17 11:51 (Gentamicin (Dialysis) Inj) 20 mg UNSCH PRN OTHER 07/31/17 11:15 08/01/17 11:51 (Zofran Inj) 4 mg UNSCH PRN IV PUSH 07/31/17 11:15 07/31/17 15:20 (Tylenol) 650 mg UNSCH PRN PO 07/31/17 11:15 (Benadryl) 25 mg UNSCH PRN PO 07/31/17 11:15 (Nitrostat Sl) 0.4 mg UNSCH PRN SL 07/31/17 11:15 (Catapres) 0.1 mg UNSCH PRN PO 07/31/17 11:15 (Epogen Inj) 4,000 units UNSCH PRN IV 07/31/17 12:15 (Gelfoam 12 Mm/7 Mm Top) 1 foam UNSCH PRN TOP 07/31/17 11:15 (NS Flush) UNSCH PRN IVF 07/31/17 15:45 (Heparin Inj) UNSCH PRN IV FLUSH 07/31/17 15:45 (Milk Of Magnesia Liq) 30 ml Q12H PRN PO 08/01/17 14:15 (Senokot) 17.2 mg Q12H PRN PO 08/01/17 14:15 (Dulcolax Supp) 10 mg DAILY PRN RECTAL 08/01/17 14:15 (Lactulose Liq) 30 ml DAILY PRN PO 08/01/17 14:15 Vital Signs / I&O Vital Signs Date Time Temp Pulse Resp B/P (MAP) Pulse Ox O2 Delivery O2 Flow Rate FiO2 08/03/17 04:00 Room Air 08/03/17 04:00 97.5 55 18 156/82 (106) 96 08/03/17 00:00 Room Air 08/02/17 20:55 Room Air 08/02/17 20:00 97.8 61 18 151/77 (101) 97 08/02/17 20:00 56 08/02/17 16:00 97.9 58 18 146/70 (95) 98 08/02/17 12:00 97.7 55 18 129/71 (90) 98 08/02/17 10:12 97.9 60 18 131/65 (87) 97 I/O 08/02/17 08/02/17 08/02/17 08/03/17 08/03/17 08/03/17 07:00 15:00 23:00 07:00 15:00 23:00 Intake Total 720 ml 240 ml Balance 720 ml 240 ml Intake Oral 720 ml 240 ml # Voids 2 4 3 # Bowel Movements 1 Physical Exam GENERAL: Obese, middle age female SKIN: Warm and dry. HEAD: Normocephalic. EYES: No scleral icterus. No injection or drainage. NECK: Supple, trachea midline. No JVD or lymphadenopathy. CARDIOVASCULAR: Regular rate and rhythm without murmurs, gallops, or rubs. RESPIRATORY: Breath sounds equal bilaterally. No accessory muscle use. GASTROINTESTINAL: Abdomen soft, non-tender, nondistended. MUSCULOSKELETAL: No cyanosis, 2+ BLE edema BACK: Nontender without obvious deformity. No CVA tenderness. Laboratory Laboratory Tests Test 08/02/17 17:50 Urine Color YELLOW Urine Turbidity HAZY Urine pH 7.5 Urine Specific [place] 1.011 Urine Protein 300 mg/dL Urine Glucose (UA) 70 mg/dL Urine Ketones NEG mg/dL Urine Occult Blood LARGE Urine Nitrite NEG Urine Bilirubin NEG Urine Urobilinogen LESS THAN 2.0 MG/DL Urine Leukocyte Esterase NEG Urine RBC 83 /hpf Urine WBC 6 /hpf Urine Squamous Epithelial Cells 3 /hpf Urine Amorphous Sediment RARE Urine Bacteria RARE /hpf Microscopic Urinalysis Comment CULT NOT INDICATED Assessment and Plan Assessment and Plan STEMI s/p cardiac cath with LAD coronary stent. EF 55-60% HTN HLD Diabetes Acute on chronic renal failure BLE edema PLAN: Continue dialysis per nephrology BLE may be due to amlodipine. Increase hydralazine and decrease amlodipine. Add hold parameters Continue ASA, Plavix, BB, norvasc and statin. She is not a candidate for [facility]O or ARB due to EUGENE Patient seen and evaluated by Dr Scott who completed face to face encounter and physical exam, and participated in evaluation and management. Rose Soto Aug 03, 2017 09:18
[2017-08-03 10:57] LABS: BICARBONATE 24.4 MEQ/L (21.0-32.0); POTASSIUM 4.4 MEQ/L (3.5-5.1)
--- NOTE | 2017-08-03 11:03 | HHI.PR ---
Subjective Remarks Follow up hypertension, DM, status post acute IA. Patient seen and examined. Lying in bed comfortably in no apparent distress. States she started her period and cramping. Denies any new acute events overnight. Positive BM. Ambulating well. Positive urine output. Bilateral lower extremity swelling continued despite elevating legs and dialysis. Tolerating PO intake, denies any recent fever, chills, cough, shortness of breath, ab pain, nausea, vomiting, diarrhea. Objective Vitals Vital Signs Date Time Temp Pulse Resp B/P (MAP) Pulse Ox O2 Delivery O2 Flow Rate FiO2 08/03/17 10:32 54 08/03/17 09:02 Room Air 08/03/17 04:00 Room Air 08/03/17 04:00 97.5 55 18 156/82 (106) 96 08/03/17 00:00 Room Air 08/02/17 20:55 Room Air 08/02/17 20:00 97.8 61 18 151/77 (101) 97 08/02/17 20:00 56 08/02/17 16:00 97.9 58 18 146/70 (95) 98 08/02/17 12:00 97.7 55 18 129/71 (90) 98 I/O 08/02/17 08/02/17 08/02/17 08/03/17 08/03/17 08/03/17 07:00 15:00 23:00 07:00 15:00 23:00 Intake Total 720 ml 240 ml Balance 720 ml 240 ml Intake Oral 720 ml 240 ml # Voids 2 4 3 # Bowel Movements 1 Result Diagram: 08/01/17 0849 08/03/17 0944 Imaging Last Impressions Catheter Placement X-Ray 07/31/17 0000 Signed Impressions: Service Date/Time: Monday, July 31, 2017 13:41 - CONCLUSION: Uncomplicated line placement as above. Rhett Ray MD Renal Ultrasound 07/28/17 0000 Signed Impressions: Service Date/Time: Friday, July 28, 2017 10:58 - CONCLUSION: 1. The examination is within normal limits. Anatoly Wong MD Chest X-Ray 07/27/17 0000 Signed Impressions: Service Date/Time: Thursday, July 27, 2017 16:13 - CONCLUSION: No acute disease. Rhett Miller MD Objective Remarks GENERAL: This is a well-nourished, well-developed patient, in no apparent distress. HEENT: PERRL. EOMs intact. NECK: Supple. No JVD. Right SC vas cath in place. CARDIOVASCULAR: Normal rate and regular rhythm without murmurs, gallops, or rubs. RESPIRATORY: Good respiratory efforts. Breath sounds equal and clear to auscultation bilaterally. GASTROINTESTINAL: Abdomen soft, non-tender, non-distended. Normal active bowel sounds. MUSCULOSKELETAL: 2+ bilateral lower extremity edema NEURO: Alert & Oriented x4 to person, place, time, situation. Moves all ext x4 PSYCH: Appropriate mood and affect. A/P Problem List: (1) Alcohol abuse ICD Code: F10.10 - Alcohol abuse, uncomplicated (2) CAD (coronary artery disease) ICD Code: I25.10 - Atherosclerotic heart disease of [place] coronary artery without angina pectoris (3) Hypertension ICD Code: I10 - Essential (primary) hypertension (4) Tobacco abuse ICD Code: Z72.0 - Tobacco use (5) Hyperlipidemia ICD Code: E78.5 - Hyperlipidemia, unspecified (6) Diabetes ICD Code: E11.9 - Type 2 diabetes mellitus without complications (7) STEMI (ST elevation myocardial infarction) ICD Code: I21.3 - ST elevation (STEMI) myocardial infarction of unspecified site Status: Acute Assessment and Plan 52-year-old female admitted for: Acute myocardial infarction. Status post cardiac catheterization with stent to the proximal LAD -Continue aspirin, Plavix, Norvasc, and statin. Acute on chronic kidney disease: Likely related to [place] and contrast. - Nephrology following. Patient requiring dialysis. Unclear if she will regain renal function. Awaiting further recommendations and plan. BMP reviewed today, creatinine currently 3.8 - Continue to monitor. Diabetes mellitus: Untreated. Hemoglobin A1c 7.3 Given renal failure. - Continue sliding scale insulin with Accu-Cheks. Well controlled at this time. - Diabetes education Hypertension: Continue Norvasc and hydralazine. Mildly elevated at this time. Clonidine given PRN. Will continue to monitor BPs. Hyperlipidemia: continue on statin Smoking and alcohol cessation discussed with the patient. Discharge Planning Last CM note: 07/30/17 CM RECEIVED VISIT FROM SUBHASH (FROM [facility]) IN REGARDS TO PATIENT PREPARING TO BE CHRONIC VS ACUTE ESRD, NEPHROLOGY HAS NOT MADE THAT DETERMINATION YET , THEY WILL CONTINUE TO FOLLOW TO APPLY FOR SSI/DISABILITY AND MEDICAID FOR THIS PATIENT IF AND WHEN PT IS DEEMED CHRONIC DIALYSIS, AT PRESENT PATIENT IS SELF PAY, CM WILL CONTINUE TO FOLLOW FOR MD ORDERS AND PRN. Problem Qualifiers (1) STEMI (ST elevation myocardial infarction): Qualified Codes: I21.3 - ST elevation (STEMI) myocardial infarction of unspecified site Sharlene Aguirre Aug 03, 2017 11:03
[2017-08-03] MEDS: hydrALAZINE HCL 50 MG TAB PO SCH ×2 (12:52→18:06)
--- NOTE | 2017-08-03 19:54 | HHI.NPPN ---
Subjective History of Present Illness 52-year-old female with past medical history of diabetes mellitus for the last more than 20 years, history of hypertension and history of chronic kidney disease, came to the hospital with complaint of chest pain and shortness of breath. I was called to see the patient because of elevated BUN and creatinine. Additional Remarks Patient is alert, no SOB, no chest pain, started on HD, feeling better. Review of Systems Respiratory Lungs: SOB, Wheeze Cardiovascular Cardiac: Chest Pain, Edema, PENNY Objective Data Data 08/03/17 08/04/17 19:00 07:00 Intake Total 520 ml Balance 520 ml Intake Oral 520 ml # Voids 4 # Bowel Movements 0 Vital Signs Date Time Temp Pulse Resp B/P (MAP) Pulse Ox O2 Delivery O2 Flow Rate FiO2 08/03/17 16:10 98.7 61 20 139/76 (97) 98 08/03/17 12:10 98.0 57 20 126/67 (86) 96 08/03/17 10:32 54 08/03/17 09:02 Room Air 08/03/17 08:10 97.7 58 20 175/90 (118) 96 08/03/17 04:00 Room Air 08/03/17 04:00 97.5 55 18 156/82 (106) 96 08/03/17 00:00 Room Air 08/02/17 20:55 Room Air 08/02/17 20:00 97.8 61 18 151/77 (101) 97 08/02/17 20:00 56 -: 08/01/17 0849 08/03/17 0944 Physical Exam General Appearance: No Acute Distress, Comfortable Eyes Eye Exam: Pupils Equal Throat Throat Exam: Oral Mucosa [place] & Moist Neck Neck Exam: Neck Supple Pulmonary Resp Exam: Breath Sounds Equal, No Distress, Rhonchi, Decreased Bases Cardiology CV Exam: Regular, Normal Sinus Rhythm Gastrointestinal/Abdomen GI Exam: Soft, Non-Tender, Bowel Sounds Present, Non-Distended Extremeties Extremities Exam: Trace Edema Neurologic Neuro Exam: Alert, Awake, Oriented Psychiatric Psych Exam: Appropriate Responses Assessment/Plan Assessment Summary: EUGENE/Acute Renal Failure, Hypertension, CKD Stage IV Problem List: (1) STEMI (ST elevation myocardial infarction) ICD Codes: I21.3 - ST elevation (STEMI) myocardial infarction of unspecified site Status: Acute (2) CAD (coronary artery disease) ICD Codes: I25.10 - Atherosclerotic heart disease of [place] coronary artery without angina pectoris (3) Diabetes ICD Codes: E11.9 - Type 2 diabetes mellitus without complications (4) Hyperlipidemia ICD Codes: E78.5 - Hyperlipidemia, unspecified (5) Hypertension ICD Codes: I10 - Essential (primary) hypertension Plan Patient remain non oliguric. BP is better. She most likely has chronic kidney disease. Possibly related to Hypertensive or renovascular disease. Now also has EUGENE, related to Acute [place] and contrast. Started on HD, has last HD on Sat. Urine out put increased. Check BMP in AM and decide about HD, possibly tomorrow. Problem Qualifiers (1) STEMI (ST elevation myocardial infarction): Qualified Codes: I21.3 - ST elevation (STEMI) myocardial infarction of unspecified site Adebayo Balderas MD Aug 03, 2017 19:54
[2017-08-03] MEDS: INSULIN DETEMIR 100 UNITS/ML VIAL SQ SCH (21:18)
[2017-08-03] MEDS: ATORVASTATIN 40 MG TAB PO SCH (21:18)
[2017-08-03] MEDS: TEMAZEPAM 15 MG CAP PO PRN (21:18)
[2017-08-04] VITALS (9 sets, daily range): BP systolic 150–177; BP diastolic 70–86; PULSE 58–64; RESP 17–18; TEMP 97–98.4; O2SAT 94–100
[2017-08-04] MEDS: cloNIDine HCL 0.1 MG TAB PO PRN (05:43)
[2017-08-04] MEDS: LEVOTHYROXINE SODIUM 50 MCG TAB PO SCH (05:43)
[2017-08-04] MEDS: NICOTINE 14 MG/24 HR PATCH T-DERMAL SCH (08:13)
[2017-08-04] MEDS: hydrALAZINE HCL 50 MG TAB PO SCH ×3 (08:13→16:59)
[2017-08-04] MEDS: INSULIN ASPART SUPPLEMENTAL SCALE SQ SCH ×4 (08:14→22:15)
[2017-08-04] MEDS: METOPROLOL TARTRATE 25 MG TAB PO SCH ×2 (08:14→22:14)
[2017-08-04] MEDS: CLOPIDOGREL 75 MG TAB PO SCH (08:14)
[2017-08-04] MEDS: ASPIRIN 81 MG CHEW TAB PO SCH (08:14)
[2017-08-04] MEDS: REMOVE OLD PATCH T-DERMAL SCH (08:15)
[2017-08-04] MEDS ORDERED: amLODIPine BESYLATE 5 MG TAB PO SCH (09:00)
[2017-08-04 10:52] LABS: BICARBONATE 24.6 MEQ/L (21.0-32.0); POTASSIUM 4.8 MEQ/L (3.5-5.1)
[2017-08-04] MEDS ORDERED: amLODIPine BESYLATE 5 MG TAB PO ONE (11:40)
--- NOTE | 2017-08-04 13:14 | HHI.PR ---
Subjective Remarks Patient states she is feeling okay. Did not sleep well last night. Lower extremity edema is improved. States she is urinating plenty. Objective Vitals Vital Signs Date Time Temp Pulse Resp B/P (MAP) Pulse Ox O2 Delivery O2 Flow Rate FiO2 08/04/17 12:15 97.4 60 18 150/70 (96) 100 08/04/17 11:09 58 08/04/17 08:20 Room Air 08/04/17 08:00 97.0 60 18 177/86 (116) 97 08/04/17 05:30 97.9 62 18 176/85 (115) 98 08/04/17 01:00 Room Air 08/04/17 01:00 97.3 60 18 176/85 (115) 98 08/03/17 22:00 98.1 62 18 164/79 (107) 96 08/03/17 22:00 Room Air 08/03/17 20:05 65 08/03/17 16:10 98.7 61 20 139/76 (97) 98 I/O 08/03/17 08/03/17 08/03/17 08/04/17 08/04/17 08/04/17 07:00 15:00 23:00 07:00 15:00 23:00 Intake Total 240 ml 520 ml 570 ml Output Total 800 ml Balance 240 ml 520 ml -230 ml Intake Oral 240 ml 520 ml 570 ml Output Urine Total 800 ml # Voids 3 4 # Bowel Movements 0 Result Diagram: 08/01/17 0849 08/04/17 0925 Objective Remarks GENERAL: This is a well-nourished, well-developed patient, in no apparent distress. CARDIOVASCULAR: Normal rate and regular rhythm without murmurs, gallops, or rubs. RESPIRATORY: Good respiratory efforts. Breath sounds equal and clear to auscultation bilaterally. GASTROINTESTINAL: Abdomen soft, non-tender, non-distended. Normal active bowel sounds MUSCULOSKELETAL: 1+ bilateral lower extremity edema NEURO: Alert & Oriented x4 to person, place, time, situation. Moves all ext x4 PSYCH: Appropriate mood and affect. A/P Problem List: (1) Alcohol abuse ICD Code: F10.10 - Alcohol abuse, uncomplicated (2) CAD (coronary artery disease) ICD Code: I25.10 - Atherosclerotic heart disease of [place] coronary artery without angina pectoris (3) Hypertension ICD Code: I10 - Essential (primary) hypertension (4) Tobacco abuse ICD Code: Z72.0 - Tobacco use (5) Hyperlipidemia ICD Code: E78.5 - Hyperlipidemia, unspecified (6) Diabetes ICD Code: E11.9 - Type 2 diabetes mellitus without complications (7) STEMI (ST elevation myocardial infarction) ICD Code: I21.3 - ST elevation (STEMI) myocardial infarction of unspecified site Status: Acute Assessment and Plan 52-year-old female admitted for: Acute myocardial infarction. Status post cardiac catheterization with stent to the proximal LAD -Continue aspirin, Plavix, Norvasc, and statin. Acute on chronic kidney disease: Likely related to [place] and contrast. - Nephrology following. Patient requiring dialysis. Last hemodialysis on Thursday. Renal function is slowly improving. Further plans per nephrology whether or not she requires dialysis today. - Continue to monitor. Diabetes mellitus: Untreated. Hemoglobin A1c 7.3 Given renal failure. - Continue sliding scale insulin with Accu-Cheks. Well controlled at this time. - Diabetes education Hypertension: Continue Norvasc and hydralazine. Mildly elevated at this time. Clonidine given PRN. Will continue to monitor BPs. Hyperlipidemia: continue on statin Smoking and alcohol cessation discussed with the patient. Problem Qualifiers (1) STEMI (ST elevation myocardial infarction): Qualified Codes: I21.3 - ST elevation (STEMI) myocardial infarction of unspecified site Hardik King MD Aug 04, 2017 13:14
--- NOTE | 2017-08-04 20:21 | HHI.NPPN ---
Subjective History of Present Illness 52-year-old female with past medical history of diabetes mellitus for the last more than 20 years, history of hypertension and history of chronic kidney disease, came to the hospital with complaint of chest pain and shortness of breath. I was called to see the patient because of elevated BUN and creatinine. Additional Remarks Patient is alert, no SOB, feeling better, eating well. Review of Systems Respiratory Lungs: SOB, Wheeze Cardiovascular Cardiac: Chest Pain, Edema, PENNY Objective Data Data 08/04/17 08/05/17 19:00 07:00 Intake Total 480 ml Balance 480 ml Intake Oral 480 ml # Voids 3 # Bowel Movements 1 Vital Signs Date Time Temp Pulse Resp B/P (MAP) Pulse Ox O2 Delivery O2 Flow Rate FiO2 08/04/17 17:37 98 21 08/04/17 16:20 98.4 59 18 170/71 (104) 98 08/04/17 12:15 97.4 60 18 150/70 (96) 100 08/04/17 11:09 58 08/04/17 08:20 Room Air 08/04/17 08:00 97.0 60 18 177/86 (116) 97 08/04/17 05:30 97.9 62 18 176/85 (115) 98 08/04/17 01:00 Room Air 08/04/17 01:00 97.3 60 18 176/85 (115) 98 08/03/17 22:00 98.1 62 18 164/79 (107) 96 08/03/17 22:00 Room Air -: 08/01/17 0849 08/04/17 0925 Physical Exam General Appearance: No Acute Distress, Comfortable Eyes Eye Exam: Pupils Equal Throat Throat Exam: Oral Mucosa [place] & Moist Neck Neck Exam: Neck Supple Pulmonary Resp Exam: Breath Sounds Equal, No Distress, Rhonchi, Decreased Bases Cardiology CV Exam: Regular, Normal Sinus Rhythm Gastrointestinal/Abdomen GI Exam: Soft, Non-Tender, Bowel Sounds Present, Non-Distended Extremeties Extremities Exam: Trace Edema Neurologic Neuro Exam: Alert, Awake, Oriented Psychiatric Psych Exam: Appropriate Responses Assessment/Plan Assessment Summary: EUGENE/Acute Renal Failure, Hypertension, CKD Stage IV Problem List: (1) STEMI (ST elevation myocardial infarction) ICD Codes: I21.3 - ST elevation (STEMI) myocardial infarction of unspecified site Status: Acute (2) CAD (coronary artery disease) ICD Codes: I25.10 - Atherosclerotic heart disease of [place] coronary artery without angina pectoris (3) Diabetes ICD Codes: E11.9 - Type 2 diabetes mellitus without complications (4) Hyperlipidemia ICD Codes: E78.5 - Hyperlipidemia, unspecified (5) Hypertension ICD Codes: I10 - Essential (primary) hypertension Plan Patient remain non oliguric. BP is better. She most likely has chronic kidney disease. Possibly related to Hypertensive or renovascular disease. Now also has EUGENE, related to Acute [place] and contrast. Started on HD, has last HD on Sat. Urine out put increased. Creatinine is 3.7, was 3.8 yesterday. Hold HD today and check BMP in AM. Problem Qualifiers (1) STEMI (ST elevation myocardial infarction): Qualified Codes: I21.3 - ST elevation (STEMI) myocardial infarction of unspecified site Adebayo Balderas MD Aug 04, 2017 20:21
[2017-08-04] MEDS: ATORVASTATIN 40 MG TAB PO SCH (22:14)
[2017-08-04] MEDS: INSULIN DETEMIR 100 UNITS/ML VIAL SQ SCH (22:15)
[2017-08-04] MEDS: TEMAZEPAM 15 MG CAP PO PRN (22:15)
[2017-08-05] VITALS (7 sets, daily range): BP systolic 128–171; BP diastolic 61–81; PULSE 60–67; RESP 17–18; TEMP 97.3–98.3; O2SAT 96–99
[2017-08-05] MEDS: LEVOTHYROXINE SODIUM 50 MCG TAB PO SCH (06:37)
[2017-08-05] MEDS: INSULIN ASPART SUPPLEMENTAL SCALE SQ SCH ×4 (08:00→20:58)
[2017-08-05] MEDS: REMOVE OLD PATCH T-DERMAL SCH (09:00)
[2017-08-05] MEDS: NICOTINE 14 MG/24 HR PATCH T-DERMAL SCH (09:12)
[2017-08-05] MEDS: METOPROLOL TARTRATE 25 MG TAB PO SCH ×2 (09:12→20:51)
[2017-08-05] MEDS: ASPIRIN 81 MG CHEW TAB PO SCH (09:13)
[2017-08-05] MEDS: hydrALAZINE HCL 50 MG TAB PO SCH ×3 (09:14→18:00)
[2017-08-05] MEDS: CLOPIDOGREL 75 MG TAB PO SCH (09:14)
[2017-08-05] MEDS: amLODIPine BESYLATE 5 MG TAB PO SCH (09:14)
[2017-08-05 09:30] LABS: HEMATOCRIT 26.9 % (35.0-46.0); MEAN CELL VOLUME 88.9 FL (80.0-100.0); MEAN CORPUSCULAR HEMOGLOBIN 29.9 PG (27.0-34.0); MEAN CORPUSCULAR HGB CONC 33.6 % (32.0-36.0); PLATELET COUNT 181 TH/MM3 (150-450); RED BLOOD COUNT 3.02 MIL/MM3 (4.00-5.30); RED CELL DISTRIBUTION WIDTH 14.5 % (11.6-17.2); REVIEW FLAG FINAL; WHITE BLOOD COUNT 7.2 TH/MM3 (4.0-11.0)
--- NOTE | 2017-08-05 09:31 | PD.CARD.PN ---
Subjective Subjective Remarks The patient denies acute cardiac complaints. No CP or SOB. Edema stable. HR elevated. Improved with amlodipine. HR stable. No abnormal rhythms. HD held yesterday. Pending BMP today. (Rose Soto) Subjective Remarks The exam, history, and the medical decision-making described in the above note were completed with the assistance of the mid-level provider. I reviewed and agree with the findings presented. I attest that I had a [id number] encounter with the patient on the same day, and personally performed and documented my assessment and findings in the medical record. Hopefully will not need dialysis (Rodrigo Scott MD) Objective Medications Current Medications Medications (Trade) Dose Ordered Sig/Stephan Route Start Time Stop Time Status Last Admin (NS Flush) 2 ml UNSCH PRN IV FLUSH 07/27/17 14:00 (NS Flush) 2 ml UNSCH PRN IVF 07/27/17 16:00 (Tylenol) 325 mg Q4H PRN PO 07/27/17 18:30 07/28/17 23:06 (Percocet 5-325 Mg) 1 tab Q4H PRN PO 07/27/17 18:30 08/02/17 19:17 (Percocet 10-325 Mg) 1 tab Q4H PRN PO 07/27/17 18:30 (Restoril) 15 mg HS PRN PO 07/27/17 18:30 08/04/17 22:15 (Aspirin Chew) 81 mg DAILY PO 07/28/17 09:00 08/05/17 09:13 (Plavix) 75 mg DAILY PO 07/28/17 09:00 08/05/17 09:14 (Atropine Inj) 0.5 mg UNSCH PRN IV PUSH 07/27/17 18:30 (Zofran Inj) 4 mg Q4H PRN IV PUSH 07/27/17 18:30 07/28/17 21:25 (Lopressor) 50 mg BID PO 07/27/17 21:00 08/05/17 09:12 Nitroglycerin/ Dextrose 250 ml @ 6 mls/hr TITRATE PRN IV 07/27/17 22:45 07/28/17 18:43 (Lopressor Inj) 5 mg Q1H PRN IV PUSH 07/27/17 22:45 07/28/17 22:26 (Lipitor) 40 mg HS PO 07/28/17 21:00 08/04/17 22:14 (Levemir Inj) 10 units HS SQ 07/28/17 21:00 08/04/17 22:15 (Catapres) 0.1 mg Q4H PRN PO 07/28/17 08:45 08/04/17 05:43 (D50w (Vial) Inj) 50 ml UNSCH PRN IV 07/28/17 08:45 (Glucagon Inj) 1 mg UNSCH PRN OTHER 07/28/17 08:45 (NovoLOG SUPPLEMENTAL SCALE) 1 ACHS SLIDING SCALE SQ 07/28/17 11:00 08/04/17 22:15 (Habitrol 14 Mg Patch.24 Hr) 1 patch DAILY T-DERMAL 07/29/17 09:00 08/05/17 09:12 Miscellaneous Information 1 DAILY T-DERMAL 07/28/17 09:00 08/04/17 08:15 (Compazine Inj) 5 mg Q8H PRN IV PUSH 07/28/17 23:45 (Synthroid) 50 mcg DAILY@0600 PO 07/29/17 13:00 08/05/17 06:37 Sodium Chloride 1,000 ml @ 0 mls/hr Q0M PRN OTHER 07/31/17 11:09 (Heparin Inj) 8,000 units UNSCH PRN IV FLUSH 07/31/17 11:15 Sodium Chloride 1,000 ml @ 200 mls/hr Q5H PRN IV 07/31/17 11:09 08/01/17 11:51 Sodium Chloride 1,000 ml @ 0 mls/hr Q0M PRN OTHER 07/31/17 11:09 (Mannitol Inj) 12.5 gm UNSCH PRN IV 07/31/17 11:15 (Albumin 25% Inj) 25 gm UNSCH PRN IV 07/31/17 11:15 (NS Flush) 5 ml UNSCH PRN IV FLUSH 07/31/17 11:15 (Heparin Inj) UNSCH PRN .XX 07/31/17 11:15 08/01/17 11:51 (Gentamicin (Dialysis) Inj) 20 mg UNSCH PRN OTHER 07/31/17 11:15 08/01/17 11:51 (Zofran Inj) 4 mg UNSCH PRN IV PUSH 07/31/17 11:15 07/31/17 15:20 (Tylenol) 650 mg UNSCH PRN PO 07/31/17 11:15 (Benadryl) 25 mg UNSCH PRN PO 07/31/17 11:15 (Nitrostat Sl) 0.4 mg UNSCH PRN SL 07/31/17 11:15 (Catapres) 0.1 mg UNSCH PRN PO 07/31/17 11:15 (Epogen Inj) 4,000 units UNSCH PRN IV 07/31/17 12:15 (Gelfoam 12 Mm/7 Mm Top) 1 foam UNSCH PRN TOP 07/31/17 11:15 (NS Flush) UNSCH PRN IVF 07/31/17 15:45 (Heparin Inj) UNSCH PRN IV FLUSH 07/31/17 15:45 (Milk Of Magnesia Liq) 30 ml Q12H PRN PO 08/01/17 14:15 (Senokot) 17.2 mg Q12H PRN PO 08/01/17 14:15 (Dulcolax Supp) 10 mg DAILY PRN RECTAL 08/01/17 14:15 (Lactulose Liq) 30 ml DAILY PRN PO 08/01/17 14:15 (Apresoline) 50 mg TID PO 08/03/17 13:00 08/05/17 09:14 (Norvasc) 10 mg DAILY PO 08/05/17 09:00 08/05/17 09:14 Vital Signs / I&O Vital Signs Date Time Temp Pulse Resp B/P (MAP) Pulse Ox O2 Delivery O2 Flow Rate FiO2 08/05/17 08:00 97.3 60 18 145/65 (91) 97 08/05/17 04:00 98.1 62 18 128/61 (83) 96 08/05/17 04:00 Room Air 08/05/17 00:00 98.3 62 17 155/69 (97) 96 08/05/17 00:00 Room Air 08/04/17 20:15 64 08/04/17 20:00 98.0 62 17 154/71 (98) 94 08/04/17 20:00 Room Air 08/04/17 17:37 98 21 08/04/17 16:20 98.4 59 18 170/71 (104) 98 08/04/17 12:15 97.4 60 18 150/70 (96) 100 08/04/17 11:09 58 I/O 08/04/17 08/04/17 08/04/17 08/05/17 08/05/17 08/05/17 07:00 15:00 23:00 07:00 15:00 23:00 Intake Total 570 ml 480 ml 380 ml 460 ml Output Total 800 ml Balance -230 ml 480 ml 380 ml 460 ml Intake Oral 570 ml 480 ml 380 ml 460 ml Output Urine Total 800 ml # Voids 3 3 # Bowel Movements 1 Physical Exam GENERAL: Obese, middle age female SKIN: Warm and dry. HEAD: Normocephalic. EYES: No scleral icterus. No injection or drainage. NECK: Supple, trachea midline. Right IJ vascath CARDIOVASCULAR: Regular rate and rhythm without murmurs, gallops, or rubs. RESPIRATORY: Breath sounds equal bilaterally. No accessory muscle use. GASTROINTESTINAL: Abdomen soft, non-tender, nondistended. MUSCULOSKELETAL: No cyanosis, BLE 1+ edema BACK: Nontender without obvious deformity. No CVA tenderness. Laboratory Laboratory Tests Test 08/05/17 07:20 (Rose Soto) Assessment and Plan Assessment and Plan STEMI s/p cardiac cath with LAD coronary stent. EF 55-60% HTN HLD Diabetes Acute on chronic renal failure BLE edema PLAN: Continue dialysis per nephrology. HD held yesterday. Pending BMP today Ok to stop telemetry Continue ASA, Plavix, BB, norvasc and statin. She is not a candidate for [facility] or [facility]B due to EUGENE The patient is clear for discharge from a cardiac standpoint. Patient seen and evaluated by Dr Scott who completed face to face encounter and physical exam, and participated in evaluation and management. (Rose Soto) Rose Soto Aug 05, 2017 09:31 Rodrigo Scott MD Aug 05, 2017 14:06
[2017-08-05 10:00] LABS: BICARBONATE 23.2 MEQ/L (21.0-32.0)
[2017-08-05 10:14] LABS: POTASSIUM 4.5 MEQ/L (3.5-5.1)
--- NOTE | 2017-08-05 13:36 | HHI.PR ---
Subjective Remarks Patient denies cp/sob states is urinating well denies nausea Objective Vitals Vital Signs Date Time Temp Pulse Resp B/P (MAP) Pulse Ox O2 Delivery O2 Flow Rate FiO2 08/05/17 12:00 98.3 60 18 154/73 (100) 97 08/05/17 08:00 97.3 60 18 145/65 (91) 97 08/05/17 04:00 98.1 62 18 128/61 (83) 96 08/05/17 04:00 Room Air 08/05/17 00:00 98.3 62 17 155/69 (97) 96 08/05/17 00:00 Room Air 08/04/17 20:15 64 08/04/17 20:00 98.0 62 17 154/71 (98) 94 08/04/17 20:00 Room Air 08/04/17 17:37 98 21 08/04/17 16:20 98.4 59 18 170/71 (104) 98 I/O 08/04/17 08/04/17 08/04/17 08/05/17 08/05/17 08/05/17 07:00 15:00 23:00 07:00 15:00 23:00 Intake Total 570 ml 480 ml 380 ml 460 ml Output Total 800 ml Balance -230 ml 480 ml 380 ml 460 ml Intake Oral 570 ml 480 ml 380 ml 460 ml Output Urine Total 800 ml # Voids 3 3 # Bowel Movements 1 Result Diagram: 08/05/17 0720 08/05/17 0720 Imaging Last Impressions Catheter Placement X-Ray 07/31/17 0000 Signed Impressions: Service Date/Time: Monday, July 31, 2017 13:41 - CONCLUSION: Uncomplicated line placement as above. Rhett Ray MD Renal Ultrasound 07/28/17 0000 Signed Impressions: Service Date/Time: Friday, July 28, 2017 10:58 - CONCLUSION: 1. The examination is within normal limits. Anatoly Wong MD Chest X-Ray 07/27/17 0000 Signed Impressions: Service Date/Time: Thursday, July 27, 2017 16:13 - CONCLUSION: No acute disease. Rhett Miller MD Objective Remarks AAox3 Nad Clear lungs BL S1S2 (+) RRR, no MRG abdomen soft, NT Procedures Vasc cath placement Medications and IVs Current Medications Medications (Trade) Dose Ordered Sig/Stephan Route Start Time Stop Time Status Last Admin (NS Flush) 2 ml UNSCH PRN IV FLUSH 07/27/17 14:00 (NS Flush) 2 ml UNSCH PRN IVF 07/27/17 16:00 (Tylenol) 325 mg Q4H PRN PO 07/27/17 18:30 07/28/17 23:06 (Percocet 5-325 Mg) 1 tab Q4H PRN PO 07/27/17 18:30 08/02/17 19:17 (Percocet 10-325 Mg) 1 tab Q4H PRN PO 07/27/17 18:30 (Restoril) 15 mg HS PRN PO 07/27/17 18:30 08/04/17 22:15 (Aspirin Chew) 81 mg DAILY PO 07/28/17 09:00 08/05/17 09:13 (Plavix) 75 mg DAILY PO 07/28/17 09:00 08/05/17 09:14 (Atropine Inj) 0.5 mg UNSCH PRN IV PUSH 07/27/17 18:30 (Zofran Inj) 4 mg Q4H PRN IV PUSH 07/27/17 18:30 07/28/17 21:25 (Lopressor) 50 mg BID PO 07/27/17 21:00 08/05/17 09:12 Nitroglycerin/ Dextrose 250 ml @ 6 mls/hr TITRATE PRN IV 07/27/17 22:45 07/28/17 18:43 (Lopressor Inj) 5 mg Q1H PRN IV PUSH 07/27/17 22:45 07/28/17 22:26 (Lipitor) 40 mg HS PO 07/28/17 21:00 08/04/17 22:14 (Levemir Inj) 10 units HS SQ 07/28/17 21:00 08/04/17 22:15 (Catapres) 0.1 mg Q4H PRN PO 07/28/17 08:45 08/04/17 05:43 (D50w (Vial) Inj) 50 ml UNSCH PRN IV 07/28/17 08:45 (Glucagon Inj) 1 mg UNSCH PRN OTHER 07/28/17 08:45 (NovoLOG SUPPLEMENTAL SCALE) 1 ACHS SLIDING SCALE SQ 07/28/17 11:00 08/05/17 12:00 (Habitrol 14 Mg Patch.24 Hr) 1 patch DAILY T-DERMAL 07/29/17 09:00 08/05/17 09:12 Miscellaneous Information 1 DAILY T-DERMAL 07/28/17 09:00 08/04/17 08:15 (Compazine Inj) 5 mg Q8H PRN IV PUSH 07/28/17 23:45 (Synthroid) 50 mcg DAILY@0600 PO 07/29/17 13:00 08/05/17 06:37 Sodium Chloride 1,000 ml @ 0 mls/hr Q0M PRN OTHER 07/31/17 11:09 (Heparin Inj) 8,000 units UNSCH PRN IV FLUSH 07/31/17 11:15 Sodium Chloride 1,000 ml @ 200 mls/hr Q5H PRN IV 07/31/17 11:09 08/01/17 11:51 Sodium Chloride 1,000 ml @ 0 mls/hr Q0M PRN OTHER 07/31/17 11:09 (Mannitol Inj) 12.5 gm UNSCH PRN IV 07/31/17 11:15 (Albumin 25% Inj) 25 gm UNSCH PRN IV 07/31/17 11:15 (NS Flush) 5 ml UNSCH PRN IV FLUSH 07/31/17 11:15 (Heparin Inj) UNSCH PRN .XX 07/31/17 11:15 08/01/17 11:51 (Gentamicin (Dialysis) Inj) 20 mg UNSCH PRN OTHER 07/31/17 11:15 08/01/17 11:51 (Zofran Inj) 4 mg UNSCH PRN IV PUSH 07/31/17 11:15 07/31/17 15:20 (Tylenol) 650 mg UNSCH PRN PO 07/31/17 11:15 (Benadryl) 25 mg UNSCH PRN PO 07/31/17 11:15 (Nitrostat Sl) 0.4 mg UNSCH PRN SL 07/31/17 11:15 (Catapres) 0.1 mg UNSCH PRN PO 07/31/17 11:15 (Epogen Inj) 4,000 units UNSCH PRN IV 07/31/17 12:15 (Gelfoam 12 Mm/7 Mm Top) 1 foam UNSCH PRN TOP 07/31/17 11:15 (NS Flush) UNSCH PRN IVF 07/31/17 15:45 (Heparin Inj) UNSCH PRN IV FLUSH 07/31/17 15:45 (Milk Of Magnesia Liq) 30 ml Q12H PRN PO 08/01/17 14:15 (Senokot) 17.2 mg Q12H PRN PO 08/01/17 14:15 (Dulcolax Supp) 10 mg DAILY PRN RECTAL 08/01/17 14:15 (Lactulose Liq) 30 ml DAILY PRN PO 08/01/17 14:15 (Apresoline) 50 mg TID PO 08/03/17 13:00 08/05/17 13:06 (Norvasc) 10 mg DAILY PO 08/05/17 09:00 08/05/17 09:14 Urinary Catheter: No Vascular Central Line Catheter: Yes Assessment to: Continue Side: Right Location: Internal, Jugular Reason for Continuation on HD A/P Problem List: (1) Alcohol abuse ICD Code: F10.10 - Alcohol abuse, uncomplicated (2) CAD (coronary artery disease) ICD Code: I25.10 - Atherosclerotic heart disease of [place] coronary artery without angina pectoris (3) Hypertension ICD Code: I10 - Essential (primary) hypertension (4) Tobacco abuse ICD Code: Z72.0 - Tobacco use (5) Hyperlipidemia ICD Code: E78.5 - Hyperlipidemia, unspecified (6) Diabetes ICD Code: E11.9 - Type 2 diabetes mellitus without complications (7) STEMI (ST elevation myocardial infarction) ICD Code: I21.3 - ST elevation (STEMI) myocardial infarction of unspecified site Status: Acute Assessment and Plan 52-year-old female admitted for: Acute myocardial infarction. Status post cardiac catheterization with stent to the proximal LAD - 08/05 No chest pain. Continue aspirin, Plavix, Norvasc, and statin. Acute on chronic kidney disease: Likely related to [place] and contrast. - Nephrology following. Patient requiring dialysis. Last hemodialysis on Thursday. Renal function is slowly improving. - Continue to monitor. - 08/05 Creatinine trending down slowly. Urine output better. Further plans per nephrology whether or not she requires dialysis today. Diabetes mellitus: Untreated. Hemoglobin A1c 7.3 Given renal failure. - Continue sliding scale insulin with Accu-Cheks. Well controlled at this time. - Diabetes education Hypertension: Continue Norvasc and hydralazine. Mildly elevated at this time. Clonidine given PRN. Will continue to monitor BPs. Hyperlipidemia: continue on statin Smoking and alcohol cessation discussed with the patient. Discharge Planning Pending clinical improvement and nephrology clearance Problem Qualifiers (1) STEMI (ST elevation myocardial infarction): Qualified Codes: I21.3 - ST elevation (STEMI) myocardial infarction of unspecified site Russ Kiran MD Aug 05, 2017 13:36
--- NOTE | 2017-08-05 17:16 | HHI.NPPN ---
Subjective History of Present Illness 52-year-old female with past medical history of diabetes mellitus for the last more than 20 years, history of hypertension and history of chronic kidney disease, came to the hospital with complaint of chest pain and shortness of breath. I was called to see the patient because of elevated BUN and creatinine. Additional Remarks Patient is alert, no SOB, feeling better, eating well, clinically same. Review of Systems Respiratory Lungs: SOB, Wheeze Cardiovascular Cardiac: Chest Pain, Edema, PENNY Objective Data Data Vital Signs Date Time Temp Pulse Resp B/P (MAP) Pulse Ox O2 Delivery O2 Flow Rate FiO2 08/05/17 16:00 98.3 62 18 160/75 (103) 99 08/05/17 12:00 98.3 60 18 154/73 (100) 97 08/05/17 08:00 97.3 60 18 145/65 (91) 97 08/05/17 04:00 98.1 62 18 128/61 (83) 96 08/05/17 04:00 Room Air 08/05/17 00:00 98.3 62 17 155/69 (97) 96 08/05/17 00:00 Room Air 08/04/17 20:15 64 08/04/17 20:00 98.0 62 17 154/71 (98) 94 08/04/17 20:00 Room Air 08/04/17 17:37 98 21 -: 08/05/17 0720 08/05/17 0720 Physical Exam General Appearance: No Acute Distress, Comfortable Eyes Eye Exam: Pupils Equal Throat Throat Exam: Oral Mucosa [place] & Moist Neck Neck Exam: Neck Supple Pulmonary Resp Exam: Breath Sounds Equal, No Distress, Rhonchi, Decreased Bases Cardiology CV Exam: Regular, Normal Sinus Rhythm Gastrointestinal/Abdomen GI Exam: Soft, Non-Tender, Bowel Sounds Present, Non-Distended Extremeties Extremities Exam: Trace Edema Neurologic Neuro Exam: Alert, Awake, Oriented Psychiatric Psych Exam: Appropriate Responses Assessment/Plan Assessment Summary: EUGENE/Acute Renal Failure, Hypertension, CKD Stage IV Problem List: (1) STEMI (ST elevation myocardial infarction) ICD Codes: I21.3 - ST elevation (STEMI) myocardial infarction of unspecified site Status: Acute (2) CAD (coronary artery disease) ICD Codes: I25.10 - Atherosclerotic heart disease of [place] coronary artery without angina pectoris (3) Diabetes ICD Codes: E11.9 - Type 2 diabetes mellitus without complications (4) Hyperlipidemia ICD Codes: E78.5 - Hyperlipidemia, unspecified (5) Hypertension ICD Codes: I10 - Essential (primary) hypertension Plan Patient remain non oliguric. BP is better. She most likely has chronic kidney disease. Possibly related to Hypertensive or renovascular disease. Now also has EUGENE, related to Acute [place] and contrast. Started on HD, has last HD on Sat. Urine out put increased. Creatinine is slightly better, 3.5. Urine out put is good. Encourage oral fluid. Follow BMP. Once GFR above 15 ml/min., can be discharge. Continue to hold HD. Problem Qualifiers (1) STEMI (ST elevation myocardial infarction): Qualified Codes: I21.3 - ST elevation (STEMI) myocardial infarction of unspecified site Adebayo Balderas MD Aug 05, 2017 17:16
[2017-08-05] MEDS: ATORVASTATIN 40 MG TAB PO SCH (20:51)
[2017-08-05] MEDS: TEMAZEPAM 15 MG CAP PO PRN (20:57)
[2017-08-05] MEDS: INSULIN DETEMIR 100 UNITS/ML VIAL SQ SCH (21:06)
[2017-08-06] VITALS (7 sets, daily range): BP systolic 142–172; BP diastolic 66–86; PULSE 60–74; RESP 19–21; TEMP 97.3–98.1; O2SAT 97–99
[2017-08-06] MEDS: LEVOTHYROXINE SODIUM 50 MCG TAB PO SCH (05:06)
[2017-08-06] MEDS: INSULIN ASPART SUPPLEMENTAL SCALE SQ SCH ×4 (08:00→21:40)
[2017-08-06 08:43] LABS: HEMATOCRIT 26.9 % (35.0-46.0); MEAN CELL VOLUME 88.7 FL (80.0-100.0); MEAN CORPUSCULAR HEMOGLOBIN 29.6 PG (27.0-34.0); MEAN CORPUSCULAR HGB CONC 33.3 % (32.0-36.0); PLATELET COUNT 193 TH/MM3 (150-450); RED BLOOD COUNT 3.03 MIL/MM3 (4.00-5.30); RED CELL DISTRIBUTION WIDTH 14.5 % (11.6-17.2); REVIEW FLAG FINAL; WHITE BLOOD COUNT 7.2 TH/MM3 (4.0-11.0)
[2017-08-06] MEDS: CLOPIDOGREL 75 MG TAB PO SCH (08:46)
[2017-08-06] MEDS: hydrALAZINE HCL 50 MG TAB PO SCH ×3 (08:46→17:45)
[2017-08-06] MEDS: NICOTINE 14 MG/24 HR PATCH T-DERMAL SCH (08:46)
[2017-08-06] MEDS: amLODIPine BESYLATE 5 MG TAB PO SCH (08:46)
[2017-08-06] MEDS: ASPIRIN 81 MG CHEW TAB PO SCH (08:46)
[2017-08-06] MEDS: METOPROLOL TARTRATE 25 MG TAB PO SCH ×2 (08:46→21:19)
[2017-08-06] MEDS: REMOVE OLD PATCH T-DERMAL SCH (08:50)
[2017-08-06 09:12] LABS: POTASSIUM 4.7 MEQ/L (3.5-5.1)
--- NOTE | 2017-08-06 17:36 | HHI.PR ---
Subjective Remarks Patient does not have any complaints denies cp/sob Objective Vitals Vital Signs Date Time Temp Pulse Resp B/P (MAP) Pulse Ox O2 Delivery O2 Flow Rate FiO2 08/06/17 16:00 98.1 62 20 155/75 (101) 97 08/06/17 12:00 98.0 62 20 154/70 (98) 98 08/06/17 09:00 Room Air 08/06/17 08:00 97.3 66 20 169/86 (113) 99 08/06/17 04:00 97.4 60 21 142/66 (91) 98 08/06/17 00:00 97.6 74 19 172/72 (105) 99 08/05/17 20:05 Room Air 08/05/17 20:00 97.6 67 18 171/81 (111) 97 08/05/17 17:35 99 21 I/O 08/05/17 08/05/17 08/05/17 08/06/17 08/06/17 08/06/17 07:00 15:00 23:00 07:00 15:00 23:00 Intake Total 460 ml 500 ml 360 ml 480 ml Output Total 750 ml Balance 460 ml 500 ml -390 ml 480 ml Intake Oral 460 ml 500 ml 360 ml 480 ml Output Urine Total 750 ml # Voids 3 3 2 # Bowel Movements 0 Result Diagram: 08/06/17 0624 08/06/17 0624 Imaging Last Impressions Catheter Placement X-Ray 07/31/17 0000 Signed Impressions: Service Date/Time: Monday, July 31, 2017 13:41 - CONCLUSION: Uncomplicated line placement as above. Rhett Ray MD Renal Ultrasound 07/28/17 0000 Signed Impressions: Service Date/Time: Friday, July 28, 2017 10:58 - CONCLUSION: 1. The examination is within normal limits. Anatoly Wong MD Chest X-Ray 07/27/17 0000 Signed Impressions: Service Date/Time: Thursday, July 27, 2017 16:13 - CONCLUSION: No acute disease. Rhett Miller MD Objective Remarks AAox3 Nad Clear lungs BL S1S2 (+) RRR, no MRG abdomen soft, NT Procedures Vasc cath placement Medications and IVs Current Medications Medications (Trade) Dose Ordered Sig/Stephan Route Start Time Stop Time Status Last Admin (NS Flush) 2 ml UNSCH PRN IV FLUSH 07/27/17 14:00 (NS Flush) 2 ml UNSCH PRN IVF 07/27/17 16:00 (Tylenol) 325 mg Q4H PRN PO 07/27/17 18:30 07/28/17 23:06 (Percocet 5-325 Mg) 1 tab Q4H PRN PO 07/27/17 18:30 08/02/17 19:17 (Percocet 10-325 Mg) 1 tab Q4H PRN PO 07/27/17 18:30 (Restoril) 15 mg HS PRN PO 07/27/17 18:30 08/05/17 20:57 (Aspirin Chew) 81 mg DAILY PO 07/28/17 09:00 08/06/17 08:46 (Plavix) 75 mg DAILY PO 07/28/17 09:00 08/06/17 08:46 (Atropine Inj) 0.5 mg UNSCH PRN IV PUSH 07/27/17 18:30 (Zofran Inj) 4 mg Q4H PRN IV PUSH 07/27/17 18:30 07/28/17 21:25 (Lopressor) 50 mg BID PO 07/27/17 21:00 08/06/17 08:46 Nitroglycerin/ Dextrose 250 ml @ 6 mls/hr TITRATE PRN IV 07/27/17 22:45 07/28/17 18:43 (Lopressor Inj) 5 mg Q1H PRN IV PUSH 07/27/17 22:45 07/28/17 22:26 (Lipitor) 40 mg HS PO 07/28/17 21:00 08/05/17 20:51 (Levemir Inj) 10 units HS SQ 07/28/17 21:00 08/05/17 21:06 (Catapres) 0.1 mg Q4H PRN PO 07/28/17 08:45 08/04/17 05:43 (D50w (Vial) Inj) 50 ml UNSCH PRN IV 07/28/17 08:45 (Glucagon Inj) 1 mg UNSCH PRN OTHER 07/28/17 08:45 (NovoLOG SUPPLEMENTAL SCALE) 1 ACHS SLIDING SCALE SQ 07/28/17 11:00 08/06/17 12:00 (Habitrol 14 Mg Patch.24 Hr) 1 patch DAILY T-DERMAL 07/29/17 09:00 08/06/17 08:46 Miscellaneous Information 1 DAILY T-DERMAL 07/28/17 09:00 08/06/17 08:50 (Compazine Inj) 5 mg Q8H PRN IV PUSH 07/28/17 23:45 (Synthroid) 50 mcg DAILY@0600 PO 07/29/17 13:00 08/06/17 05:06 Sodium Chloride 1,000 ml @ 0 mls/hr Q0M PRN OTHER 07/31/17 11:09 (Heparin Inj) 8,000 units UNSCH PRN IV FLUSH 07/31/17 11:15 Sodium Chloride 1,000 ml @ 200 mls/hr Q5H PRN IV 07/31/17 11:09 08/01/17 11:51 Sodium Chloride 1,000 ml @ 0 mls/hr Q0M PRN OTHER 07/31/17 11:09 (Mannitol Inj) 12.5 gm UNSCH PRN IV 07/31/17 11:15 (Albumin 25% Inj) 25 gm UNSCH PRN IV 07/31/17 11:15 (NS Flush) 5 ml UNSCH PRN IV FLUSH 07/31/17 11:15 (Heparin Inj) UNSCH PRN .XX 07/31/17 11:15 08/01/17 11:51 (Gentamicin (Dialysis) Inj) 20 mg UNSCH PRN OTHER 07/31/17 11:15 08/01/17 11:51 (Zofran Inj) 4 mg UNSCH PRN IV PUSH 07/31/17 11:15 07/31/17 15:20 (Tylenol) 650 mg UNSCH PRN PO 07/31/17 11:15 (Benadryl) 25 mg UNSCH PRN PO 07/31/17 11:15 (Nitrostat Sl) 0.4 mg UNSCH PRN SL 07/31/17 11:15 (Catapres) 0.1 mg UNSCH PRN PO 07/31/17 11:15 (Epogen Inj) 4,000 units UNSCH PRN IV 07/31/17 12:15 (Gelfoam 12 Mm/7 Mm Top) 1 foam UNSCH PRN TOP 07/31/17 11:15 (NS Flush) UNSCH PRN IVF 07/31/17 15:45 (Heparin Inj) UNSCH PRN IV FLUSH 07/31/17 15:45 (Milk Of Magnesia Liq) 30 ml Q12H PRN PO 08/01/17 14:15 (Senokot) 17.2 mg Q12H PRN PO 08/01/17 14:15 (Dulcolax Supp) 10 mg DAILY PRN RECTAL 08/01/17 14:15 (Lactulose Liq) 30 ml DAILY PRN PO 08/01/17 14:15 (Norvasc) 10 mg DAILY PO 08/05/17 09:00 08/06/17 08:46 (Apresoline) 100 mg TID PO 08/06/17 13:00 08/06/17 12:50 Vascular Central Line Catheter: Yes Assessment to: Continue Side: Right Location: Internal, Jugular Reason for Continuation On HD. A/P Problem List: (1) Alcohol abuse ICD Code: F10.10 - Alcohol abuse, uncomplicated (2) CAD (coronary artery disease) ICD Code: I25.10 - Atherosclerotic heart disease of [place] coronary artery without angina pectoris (3) Hypertension ICD Code: I10 - Essential (primary) hypertension (4) Tobacco abuse ICD Code: Z72.0 - Tobacco use (5) Hyperlipidemia ICD Code: E78.5 - Hyperlipidemia, unspecified (6) Diabetes ICD Code: E11.9 - Type 2 diabetes mellitus without complications (7) STEMI (ST elevation myocardial infarction) ICD Code: I21.3 - ST elevation (STEMI) myocardial infarction of unspecified site Status: Acute Assessment and Plan 52-year-old female admitted for: Acute myocardial infarction. Status post cardiac catheterization with stent to the proximal LAD - 08/06 No chest pain. Continue aspirin, Plavix, Norvasc, and statin. Acute on chronic kidney disease: Likely related to [place] and contrast. - Nephrology following. Patient requiring dialysis. Last hemodialysis on Thursday. Renal function is slowly improving. - Continue to monitor. - 08/06 Creatinine slightly higher than previous day - 3.58 to 3.66. fu nephrology recommendations. Diabetes mellitus: Untreated. Hemoglobin A1c 7.3 Given renal failure. - Continue sliding scale insulin with Accu-Cheks. Well controlled at this time. - Diabetes education Hypertension: Continue Norvasc and hydralazine. - 08/06 BP severely elevated and uncontrolled with an sbp in the 170's - Will increase hydralazine dose from 50 to 100 mg po TID. Hyperlipidemia: continue on statin Smoking and alcohol cessation discussed with the patient. Discharge Planning Pending clinical improvement and nephrology clearance Problem Qualifiers (1) STEMI (ST elevation myocardial infarction): Qualified Codes: I21.3 - ST elevation (STEMI) myocardial infarction of unspecified site Russ Kiran MD Aug 06, 2017 17:36
[2017-08-06] MEDS: TEMAZEPAM 15 MG CAP PO PRN (21:19)
[2017-08-06] MEDS: ATORVASTATIN 40 MG TAB PO SCH (21:19)
[2017-08-06] MEDS: INSULIN DETEMIR 100 UNITS/ML VIAL SQ SCH (21:20)
--- NOTE | 2017-08-06 21:37 | HHI.PR ---
Subjective Remarks DRAFT pt not seen Objective Vitals Vital Signs Date Time Temp Pulse Resp B/P (MAP) Pulse Ox O2 Delivery O2 Flow Rate FiO2 08/06/17 17:33 97 21 08/06/17 16:00 98.1 62 20 155/75 (101) 97 08/06/17 12:00 98.0 62 20 154/70 (98) 98 08/06/17 09:00 Room Air 08/06/17 08:00 97.3 66 20 169/86 (113) 99 08/06/17 04:00 97.4 60 21 142/66 (91) 98 08/06/17 00:00 97.6 74 19 172/72 (105) 99 I/O 08/05/17 08/05/17 08/05/17 08/06/17 08/06/17 08/06/17 07:00 15:00 23:00 07:00 15:00 23:00 Intake Total 460 ml 500 ml 360 ml 480 ml Output Total 750 ml Balance 460 ml 500 ml -390 ml 480 ml Intake Oral 460 ml 500 ml 360 ml 480 ml Output Urine Total 750 ml # Voids 3 3 2 # Bowel Movements 0 Result Diagram: 08/06/17 0624 08/06/17 0624 Imaging Last Impressions Catheter Placement X-Ray 07/31/17 0000 Signed Impressions: Service Date/Time: Monday, July 31, 2017 13:41 - CONCLUSION: Uncomplicated line placement as above. Rhett Ray MD Renal Ultrasound 07/28/17 0000 Signed Impressions: Service Date/Time: Friday, July 28, 2017 10:58 - CONCLUSION: 1. The examination is within normal limits. Anatoly Wong MD Chest X-Ray 07/27/17 0000 Signed Impressions: Service Date/Time: Thursday, July 27, 2017 16:13 - CONCLUSION: No acute disease. Rhett Miller MD Procedures cardiac cath Vasc cath placement Side: Right Location: Internal, Jugular A/P Problem List: (1) Alcohol abuse ICD Code: F10.10 - Alcohol abuse, uncomplicated (2) CAD (coronary artery disease) ICD Code: I25.10 - Atherosclerotic heart disease of [place] coronary artery without angina pectoris (3) Hypertension ICD Code: I10 - Essential (primary) hypertension (4) Tobacco abuse ICD Code: Z72.0 - Tobacco use (5) Hyperlipidemia ICD Code: E78.5 - Hyperlipidemia, unspecified (6) Diabetes ICD Code: E11.9 - Type 2 diabetes mellitus without complications (7) STEMI (ST elevation myocardial infarction) ICD Code: I21.3 - ST elevation (STEMI) myocardial infarction of unspecified site Status: Acute Assessment and Plan 52-year-old female admitted for: Acute myocardial infarction. Status post cardiac catheterization with stent to the proximal LAD - 08/06 No chest pain. Continue aspirin, Plavix, Norvasc, and statin. Acute on chronic kidney disease: Likely related to [place] and contrast. - Nephrology following. Patient requiring dialysis. Last hemodialysis on Thursday. Renal function is slowly improving. - Continue to monitor. - 08/06 Creatinine slightly higher than previous day - 3.58 to 3.66. fu nephrology recommendations. Diabetes mellitus: Untreated. Hemoglobin A1c 7.3 Given renal failure. - Continue sliding scale insulin with Accu-Cheks. Well controlled at this time. - Diabetes education Hypertension: Continue Norvasc and hydralazine. - 08/06 BP severely elevated and uncontrolled with an sbp in the 170's - Will increase hydralazine dose from 50 to 100 mg po TID. Hyperlipidemia: continue on statin Smoking and alcohol cessation discussed with the patient. Problem Qualifiers (1) STEMI (ST elevation myocardial infarction): Qualified Codes: I21.3 - ST elevation (STEMI) myocardial infarction of unspecified site Julio César Peng MD Aug 06, 2017 21:37
--- NOTE | 2017-08-06 21:45 | HHI.NPPN ---
Subjective History of Present Illness 52-year-old female with past medical history of diabetes mellitus for the last more than 20 years, history of hypertension and history of chronic kidney disease, came to the hospital with complaint of chest pain and shortness of breath. I was called to see the patient because of elevated BUN and creatinine. Additional Remarks Patient is alert, sitting on chair, eating well, no SOB or chest pain. Review of Systems Respiratory Lungs: SOB, Wheeze Cardiovascular Cardiac: Chest Pain, Edema, PENNY Objective Data Data 08/06/17 08/07/17 18:59 06:59 Intake Total 480 ml Balance 480 ml Intake Oral 480 ml # Voids 2 Vital Signs Date Time Temp Pulse Resp B/P (MAP) Pulse Ox O2 Delivery O2 Flow Rate FiO2 08/06/17 17:33 97 21 08/06/17 16:00 98.1 62 20 155/75 (101) 97 08/06/17 12:00 98.0 62 20 154/70 (98) 98 08/06/17 09:00 Room Air 08/06/17 08:00 97.3 66 20 169/86 (113) 99 08/06/17 04:00 97.4 60 21 142/66 (91) 98 08/06/17 00:00 97.6 74 19 172/72 (105) 99 -: 08/06/17 0624 08/06/17 0624 Physical Exam General Appearance: No Acute Distress, Comfortable Eyes Eye Exam: Pupils Equal Throat Throat Exam: Oral Mucosa [place] & Moist Neck Neck Exam: Neck Supple Pulmonary Resp Exam: Breath Sounds Equal, No Distress, Rhonchi, Decreased Bases Cardiology CV Exam: Regular, Normal Sinus Rhythm Gastrointestinal/Abdomen GI Exam: Soft, Non-Tender, Bowel Sounds Present, Non-Distended Extremeties Extremities Exam: Trace Edema Neurologic Neuro Exam: Alert, Awake, Oriented Psychiatric Psych Exam: Appropriate Responses Assessment/Plan Assessment Summary: EUGENE/Acute Renal Failure, Hypertension, CKD Stage IV Problem List: (1) STEMI (ST elevation myocardial infarction) ICD Codes: I21.3 - ST elevation (STEMI) myocardial infarction of unspecified site Status: Acute (2) CAD (coronary artery disease) ICD Codes: I25.10 - Atherosclerotic heart disease of [place] coronary artery without angina pectoris (3) Diabetes ICD Codes: E11.9 - Type 2 diabetes mellitus without complications (4) Hyperlipidemia ICD Codes: E78.5 - Hyperlipidemia, unspecified (5) Hypertension ICD Codes: I10 - Essential (primary) hypertension Plan Patient remain non oliguric. BP is better. She most likely has chronic kidney disease. Possibly related to Hypertensive or renovascular disease. Now also has EUGENE, related to Acute [place] and contrast. Started on HD, has last HD on Sat. Urine out put increased. Creatinine is 3.6 and GFR is 13 ml/min. Urine out put is good. Encourage oral fluid. Follow BMP. Once GFR above 15 ml/min., can be discharge. Continue to hold HD for now. Problem Qualifiers (1) STEMI (ST elevation myocardial infarction): Qualified Codes: I21.3 - ST elevation (STEMI) myocardial infarction of unspecified site Adebayo Balderas MD Aug 06, 2017 21:45
[2017-08-07] VITALS (7 sets, daily range): BP systolic 142–182; BP diastolic 58–83; PULSE 63–75; RESP 16–20; TEMP 97.3–98.1; O2SAT 94–99
[2017-08-07] MEDS: LEVOTHYROXINE SODIUM 50 MCG TAB PO SCH (05:41)
[2017-08-07] MEDS: INSULIN ASPART SUPPLEMENTAL SCALE SQ SCH ×4 (08:00→21:17)
[2017-08-07 08:02] LABS: BICARBONATE 20.1 MEQ/L (21.0-32.0); POTASSIUM 5.2 MEQ/L (3.5-5.1)
[2017-08-07] MEDS: REMOVE OLD PATCH T-DERMAL SCH (09:00)
[2017-08-07] MEDS: METOPROLOL TARTRATE 25 MG TAB PO SCH ×2 (09:48→21:17)
[2017-08-07] MEDS: amLODIPine BESYLATE 5 MG TAB PO SCH (09:48)
[2017-08-07] MEDS: hydrALAZINE HCL 50 MG TAB PO SCH ×3 (09:48→18:13)
[2017-08-07] MEDS: NICOTINE 14 MG/24 HR PATCH T-DERMAL SCH (09:49)
[2017-08-07] MEDS: CLOPIDOGREL 75 MG TAB PO SCH (09:50)
[2017-08-07] MEDS: ASPIRIN 81 MG CHEW TAB PO SCH (09:50)
--- NOTE | 2017-08-07 13:48 | HHI.PR ---
Subjective Remarks Follow-up [place] and acute kidney injury. She is upset wants to go home. Denies chest pain, shortness of breath, voiding difficulty and lower extremity edema. Discussed with RN Objective Vitals Vital Signs Date Time Temp Pulse Resp B/P (MAP) Pulse Ox O2 Delivery O2 Flow Rate FiO2 08/07/17 12:00 97.7 64 16 156/76 (102) 97 08/07/17 08:10 94 21 08/07/17 08:00 98.1 73 16 174/82 (112) 96 Automatic Cuff 08/07/17 04:00 97.3 66 20 143/65 (91) 94 08/07/17 00:00 97.9 66 20 142/58 (86) 97 08/06/17 21:40 Room Air 08/06/17 20:00 97.7 68 20 154/86 (108) 97 08/06/17 17:33 97 21 08/06/17 16:00 98.1 62 20 155/75 (101) 97 I/O 08/06/17 08/06/17 08/06/17 08/07/17 08/07/17 08/07/17 07:00 15:00 23:00 07:00 15:00 23:00 Intake Total 360 ml 480 ml 720 ml Output Total 750 ml Balance -390 ml 480 ml 720 ml Intake Oral 360 ml 480 ml 720 ml Output Urine Total 750 ml # Voids 2 3 # Bowel Movements 0 Result Diagram: 08/06/17 0624 08/07/17 0656 Imaging Last Impressions Catheter Placement X-Ray 07/31/17 0000 Signed Impressions: Service Date/Time: Monday, July 31, 2017 13:41 - CONCLUSION: Uncomplicated line placement as above. Rhett Ray MD Renal Ultrasound 07/28/17 0000 Signed Impressions: Service Date/Time: Friday, July 28, 2017 10:58 - CONCLUSION: 1. The examination is within normal limits. Anatoly Wong MD Chest X-Ray 07/27/17 0000 Signed Impressions: Service Date/Time: Thursday, July 27, 2017 16:13 - CONCLUSION: No acute disease. Rhett Miller MD Objective Remarks Well-developed, well-nourished in distress due to anxiety Equal in expansion clear to auscultation Regular rate and rhythm Abdomen soft nontender extremities no edema and cyanosis Alert and oriented nonfocal Procedures cardiac cath Vasc cath placement Side: Right Location: Internal, Jugular A/P Problem List: (1) Alcohol abuse ICD Code: F10.10 - Alcohol abuse, uncomplicated (2) CAD (coronary artery disease) ICD Code: I25.10 - Atherosclerotic heart disease of [place] coronary artery without angina pectoris (3) Hypertension ICD Code: I10 - Essential (primary) hypertension (4) Tobacco abuse ICD Code: Z72.0 - Tobacco use (5) Hyperlipidemia ICD Code: E78.5 - Hyperlipidemia, unspecified (6) Diabetes ICD Code: E11.9 - Type 2 diabetes mellitus without complications (7) STEMI (ST elevation myocardial infarction) ICD Code: I21.3 - ST elevation (STEMI) myocardial infarction of unspecified site Status: Acute Assessment and Plan 52-year-old female admitted for: Acute myocardial infarction. Status post cardiac catheterization with stent to the proximal LAD -Stable. Continue aspirin, Plavix, Lopressor, Norvasc, and statin. Unable to start JOSE ROBERTO inhibitor secondary to acute kidney injury Acute on chronic kidney disease: Likely related to [place] and contrast. - Nephrology following. Patient requiring dialysis. Last hemodialysis on Thursday. Renal function is still depressed but stable. - Continue to monitor. Per renal, okay for discharge if GFR over 15 Diabetes mellitus: Untreated. Hemoglobin A1c 7.3 - Continue sliding scale insulin with Accu-Cheks. Well controlled at this time. - Diabetes education Hypertension: Continue Norvasc and hydralazine. -Continue to monitor Hyperlipidemia: continue on statin Smoking and alcohol cessation discussed with the patient. Discharge Planning Not stable for discharge Problem Qualifiers (1) STEMI (ST elevation myocardial infarction): Qualified Codes: I21.3 - ST elevation (STEMI) myocardial infarction of unspecified site Julio César Peng MD Aug 07, 2017 13:48
--- NOTE | 2017-08-07 15:46 | HHI.NPPN ---
Subjective History of Present Illness 52-year-old female with past medical history of diabetes mellitus for the last more than 20 years, history of hypertension and history of chronic kidney disease, came to the hospital with complaint of chest pain and shortness of breath. I was called to see the patient because of elevated BUN and creatinine. Additional Remarks Patient is alert, feeling tired, and has anxiety last night. Review of Systems Respiratory Lungs: SOB, Wheeze Cardiovascular Cardiac: Chest Pain, Edema, PENNY Objective Data Data Vital Signs Date Time Temp Pulse Resp B/P (MAP) Pulse Ox O2 Delivery O2 Flow Rate FiO2 08/07/17 12:00 97.7 64 16 156/76 (102) 97 08/07/17 08:10 94 21 08/07/17 08:00 98.1 73 16 174/82 (112) 96 Automatic Cuff 08/07/17 04:00 97.3 66 20 143/65 (91) 94 08/07/17 00:00 97.9 66 20 142/58 (86) 97 08/06/17 21:40 Room Air 08/06/17 20:00 97.7 68 20 154/86 (108) 97 08/06/17 17:33 97 21 08/06/17 16:00 98.1 62 20 155/75 (101) 97 -: 08/06/17 0624 08/07/17 0656 Physical Exam General Appearance: No Acute Distress, Comfortable Eyes Eye Exam: Pupils Equal Throat Throat Exam: Oral Mucosa [place] & Moist Neck Neck Exam: Neck Supple Pulmonary Resp Exam: Breath Sounds Equal, No Distress, Rhonchi, Decreased Bases Cardiology CV Exam: Regular, Normal Sinus Rhythm Gastrointestinal/Abdomen GI Exam: Soft, Non-Tender, Bowel Sounds Present, Non-Distended Extremeties Extremities Exam: Trace Edema Neurologic Neuro Exam: Alert, Awake, Oriented Psychiatric Psych Exam: Appropriate Responses Assessment/Plan Assessment Summary: EUGENE/Acute Renal Failure, Hypertension, CKD Stage IV Problem List: (1) STEMI (ST elevation myocardial infarction) ICD Codes: I21.3 - ST elevation (STEMI) myocardial infarction of unspecified site Status: Acute (2) CAD (coronary artery disease) ICD Codes: I25.10 - Atherosclerotic heart disease of [place] coronary artery without angina pectoris (3) Diabetes ICD Codes: E11.9 - Type 2 diabetes mellitus without complications (4) Hyperlipidemia ICD Codes: E78.5 - Hyperlipidemia, unspecified (5) Hypertension ICD Codes: I10 - Essential (primary) hypertension Plan Patient remain non oliguric. BP is better. She most likely has chronic kidney disease. Possibly related to Hypertensive or renovascular disease. Now also has EUGENE, related to Acute [place] and contrast. Started on HD, has last HD on Sat. Urine out put increased. Creatinine increased and now 3.8 and GFR is 12 ml/min. Urine out put is good. Encourage oral fluid. Once GFR above 15 ml/min., can be discharge. Avoid Nephrotoxins, her creatinine was 1.1 in April 2015. Problem Qualifiers (1) STEMI (ST elevation myocardial infarction): Qualified Codes: I21.3 - ST elevation (STEMI) myocardial infarction of unspecified site Adebayo Balderas MD Aug 07, 2017 15:46
--- NOTE | 2017-08-07 16:15 | HHI.NPPN ---
Subjective History of Present Illness 52-year-old female with past medical history of diabetes mellitus for the last more than 20 years, history of hypertension and history of chronic kidney disease, came to the hospital with complaint of chest pain and shortness of breath. I was called to see the patient because of elevated BUN and creatinine. Additional Remarks Patient is alert, feeling tired, no SOB, no chest pain, eating well. Review of Systems Respiratory Lungs: SOB, Wheeze Cardiovascular Cardiac: Chest Pain, Edema, PENNY Objective Data Data Vital Signs Date Time Temp Pulse Resp B/P (MAP) Pulse Ox O2 Delivery O2 Flow Rate FiO2 08/07/17 12:00 97.7 64 16 156/76 (102) 97 08/07/17 08:10 94 21 08/07/17 08:00 98.1 73 16 174/82 (112) 96 Automatic Cuff 08/07/17 04:00 97.3 66 20 143/65 (91) 94 08/07/17 00:00 97.9 66 20 142/58 (86) 97 08/06/17 21:40 Room Air 08/06/17 20:00 97.7 68 20 154/86 (108) 97 08/06/17 17:33 97 21 -: 08/06/17 0624 08/07/17 0656 Physical Exam General Appearance: No Acute Distress, Comfortable Eyes Eye Exam: Pupils Equal Throat Throat Exam: Oral Mucosa [place] & Moist Neck Neck Exam: Neck Supple Pulmonary Resp Exam: Breath Sounds Equal, No Distress, Rhonchi, Decreased Bases Cardiology CV Exam: Regular, Normal Sinus Rhythm Gastrointestinal/Abdomen GI Exam: Soft, Non-Tender, Bowel Sounds Present, Non-Distended Extremeties Extremities Exam: Trace Edema Neurologic Neuro Exam: Alert, Awake, Oriented Psychiatric Psych Exam: Appropriate Responses Assessment/Plan Assessment Summary: EUGENE/Acute Renal Failure, Hypertension, CKD Stage IV Problem List: (1) STEMI (ST elevation myocardial infarction) ICD Codes: I21.3 - ST elevation (STEMI) myocardial infarction of unspecified site Status: Acute (2) CAD (coronary artery disease) ICD Codes: I25.10 - Atherosclerotic heart disease of [place] coronary artery without angina pectoris (3) Diabetes ICD Codes: E11.9 - Type 2 diabetes mellitus without complications Status: Chronic (4) Hyperlipidemia ICD Codes: E78.5 - Hyperlipidemia, unspecified (5) Hypertension ICD Codes: I10 - Essential (primary) hypertension Plan Patient remain non oliguric. BP is better. She most likely has chronic kidney disease. Possibly related to Hypertensive or renovascular disease. Now also has EUGENE, related to Acute [place] and contrast. Started on HD, has last HD on Sat. Urine out put increased. Creatinine increased and now 3.8 and GFR is 12 ml/min. Urine out put is good. Encourage oral fluid. Once GFR above 15 ml/min., can be discharge. Avoid Nephrotoxins, her creatinine was 1.1 in April 2015. Follow the urine out put and BMP. Problem Qualifiers (1) STEMI (ST elevation myocardial infarction): Qualified Codes: I21.3 - ST elevation (STEMI) myocardial infarction of unspecified site (2) Diabetes: Qualified Codes: E11.22 - Type 2 diabetes mellitus with diabetic chronic kidney disease Adebayo Balderas MD Aug 07, 2017 16:15
[2017-08-07] MEDS: hydrOXYzine PAMOATE 25 MG CAP PO PRN (18:13)
[2017-08-07] MEDS: ATORVASTATIN 40 MG TAB PO SCH (21:10)
[2017-08-07] MEDS: TEMAZEPAM 15 MG CAP PO PRN (21:11)
[2017-08-07] MEDS: INSULIN DETEMIR 100 UNITS/ML VIAL SQ SCH (21:11)
[2017-08-07] MEDS: SODIUM CHLORIDE 0.9% FLUSH 10 ML FLUSH IV FLUSH PRN (21:20)
[2017-08-08] VITALS (7 sets, daily range): BP systolic 129–167; BP diastolic 65–99; PULSE 59–66; RESP 16–20; TEMP 97.6–98.4; O2SAT 96–98
[2017-08-08] MEDS: LEVOTHYROXINE SODIUM 50 MCG TAB PO SCH (06:03)
[2017-08-08] MEDS: INSULIN ASPART SUPPLEMENTAL SCALE SQ SCH ×4 (08:00→21:13)
[2017-08-08 08:19] LABS: BICARBONATE 21.5 MEQ/L (21.0-32.0); MAGNESIUM 1.8 MG/DL (1.5-2.5); POTASSIUM 4.7 MEQ/L (3.5-5.1)
[2017-08-08] MEDS: REMOVE OLD PATCH T-DERMAL SCH (09:00)
[2017-08-08] MEDS: amLODIPine BESYLATE 5 MG TAB PO SCH (09:40)
[2017-08-08] MEDS: CLOPIDOGREL 75 MG TAB PO SCH (09:40)
[2017-08-08] MEDS: hydrALAZINE HCL 50 MG TAB PO SCH ×3 (09:40→17:25)
[2017-08-08] MEDS: NICOTINE 14 MG/24 HR PATCH T-DERMAL SCH (09:40)
[2017-08-08] MEDS: ASPIRIN 81 MG CHEW TAB PO SCH (09:41)
[2017-08-08] MEDS: METOPROLOL TARTRATE 25 MG TAB PO SCH ×2 (09:41→21:11)
[2017-08-08] MEDS: cloNIDine HCL 0.1 MG TAB PO PRN ×2 (11:57→18:13)
--- NOTE | 2017-08-08 14:11 | HHI.PR ---
Subjective Remarks [place] and [place]. Patient seen and evaluated. Patient sitting in chair at bedside. Patient reported having had a "panic attack yesterday" and attributed this to "me thinking negative thoughts." She stated she took medication which improved the situation. Patient informed that she would not be able to be discharged today due to low creatinine levels. Patient stated she understood this and was accepting of the need to stay in the hospital. No new acute issues reported by patient. Pt denied fever, cough, shortness of breath, nausea, vomiting, diarrhea, abdominal/chest pain Per RN (Sherrie) no acute issues noted overnight or since start of shift. Objective Vitals Vital Signs Date Time Temp Pulse Resp B/P (MAP) Pulse Ox O2 Delivery O2 Flow Rate FiO2 08/08/17 12:00 98.1 59 16 164/76 (105) 98 08/08/17 09:15 98 21 08/08/17 08:00 98.3 63 16 151/71 (97) 98 08/08/17 04:00 Room Air 08/08/17 04:00 98.4 61 16 129/65 (86) 98 08/08/17 00:00 Room Air 08/07/17 21:00 Room Air 08/07/17 20:00 97.6 75 20 182/83 (116) 99 08/07/17 16:00 98.0 63 16 164/79 (107) 97 I/O 08/07/17 08/07/17 08/07/17 08/08/17 08/08/17 08/08/17 07:00 15:00 23:00 07:00 15:00 23:00 Intake Total 720 ml 1440 ml 600 ml Balance 720 ml 1440 ml 600 ml Intake Oral 720 ml 1440 ml 600 ml # Voids 3 5 4 # Bowel Movements 1 Result Diagram: 08/06/17 0624 08/08/17 0555 Imaging Last Impressions Catheter Placement X-Ray 07/31/17 0000 Signed Impressions: Service Date/Time: Monday, July 31, 2017 13:41 - CONCLUSION: Uncomplicated line placement as above. Rhett Ray MD Renal Ultrasound 07/28/17 0000 Signed Impressions: Service Date/Time: Friday, July 28, 2017 10:58 - CONCLUSION: 1. The examination is within normal limits. Anatoly Wong MD Chest X-Ray 07/27/17 0000 Signed Impressions: Service Date/Time: Thursday, July 27, 2017 16:13 - CONCLUSION: No acute disease. Rhett Miller MD Objective Remarks GENERAL: Patient encountered sitting in chair at bedside, NAD. SKIN: Warm and dry. Dialysis ports noted in patient's right side of the neck. Peripheral line noted in left wrist. HEAD: Normocephalic. EYES: No scleral icterus. No injection or drainage. NECK: Supple, trachea midline. No lymphadenopathy. CARDIOVASCULAR: Regular rate and rhythm without murmurs, gallops, or rubs. RESPIRATORY: Breath sounds equal bilaterally. No wheezes rhonchi or crackles. No accessory muscle use. GASTROINTESTINAL: Abdomen soft, non-tender, nondistended. MUSCULOSKELETAL: No cyanosis, or edema. PSYCHIATRIC: Appropriate mood and affect; insight and judgment normal. Patient was pleasant and cooperative. Procedures cardiac cath Vasc cath placement Medications and IVs Current Medications Medications (Trade) Dose Ordered Sig/Stephan Route Start Time Stop Time Status Last Admin (NS Flush) 2 ml UNSCH PRN IV FLUSH 07/27/17 14:00 08/07/17 21:20 (NS Flush) 2 ml UNSCH PRN IVF 07/27/17 16:00 (Tylenol) 325 mg Q4H PRN PO 07/27/17 18:30 07/28/17 23:06 (Percocet 5-325 Mg) 1 tab Q4H PRN PO 07/27/17 18:30 08/02/17 19:17 (Percocet 10-325 Mg) 1 tab Q4H PRN PO 07/27/17 18:30 (Restoril) 15 mg HS PRN PO 07/27/17 18:30 08/07/17 21:11 (Aspirin Chew) 81 mg DAILY PO 07/28/17 09:00 08/08/17 09:41 (Plavix) 75 mg DAILY PO 07/28/17 09:00 08/08/17 09:40 (Atropine Inj) 0.5 mg UNSCH PRN IV PUSH 07/27/17 18:30 (Zofran Inj) 4 mg Q4H PRN IV PUSH 07/27/17 18:30 07/28/17 21:25 (Lopressor) 50 mg BID PO 07/27/17 21:00 08/08/17 09:41 Nitroglycerin/ Dextrose 250 ml @ 6 mls/hr TITRATE PRN IV 07/27/17 22:45 07/28/17 18:43 (Lopressor Inj) 5 mg Q1H PRN IV PUSH 07/27/17 22:45 07/28/17 22:26 (Lipitor) 40 mg HS PO 07/28/17 21:00 08/07/17 21:10 (Levemir Inj) 10 units HS SQ 07/28/17 21:00 08/07/17 21:11 (Catapres) 0.1 mg Q4H PRN PO 07/28/17 08:45 08/08/17 11:57 (D50w (Vial) Inj) 50 ml UNSCH PRN IV 07/28/17 08:45 (Glucagon Inj) 1 mg UNSCH PRN OTHER 07/28/17 08:45 (Habitrol 14 Mg Patch.24 Hr) 1 patch DAILY T-DERMAL 07/29/17 09:00 08/08/17 09:40 Miscellaneous Information 1 DAILY T-DERMAL 07/28/17 09:00 08/07/17 09:00 (Compazine Inj) 5 mg Q8H PRN IV PUSH 07/28/17 23:45 (Synthroid) 50 mcg DAILY@0600 PO 07/29/17 13:00 08/08/17 06:03 Sodium Chloride 1,000 ml @ 0 mls/hr Q0M PRN OTHER 07/31/17 11:09 (Heparin Inj) 8,000 units UNSCH PRN IV FLUSH 07/31/17 11:15 Sodium Chloride 1,000 ml @ 200 mls/hr Q5H PRN IV 07/31/17 11:09 08/01/17 11:51 Sodium Chloride 1,000 ml @ 0 mls/hr Q0M PRN OTHER 07/31/17 11:09 (Mannitol Inj) 12.5 gm UNSCH PRN IV 07/31/17 11:15 (Albumin 25% Inj) 25 gm UNSCH PRN IV 07/31/17 11:15 (NS Flush) 5 ml UNSCH PRN IV FLUSH 07/31/17 11:15 (Heparin Inj) UNSCH PRN .XX 07/31/17 11:15 08/01/17 11:51 (Gentamicin (Dialysis) Inj) 20 mg UNSCH PRN OTHER 07/31/17 11:15 08/01/17 11:51 (Zofran Inj) 4 mg UNSCH PRN IV PUSH 07/31/17 11:15 07/31/17 15:20 (Tylenol) 650 mg UNSCH PRN PO 07/31/17 11:15 (Benadryl) 25 mg UNSCH PRN PO 07/31/17 11:15 (Nitrostat Sl) 0.4 mg UNSCH PRN SL 07/31/17 11:15 (Catapres) 0.1 mg UNSCH PRN PO 07/31/17 11:15 (Epogen Inj) 4,000 units UNSCH PRN IV 07/31/17 12:15 (Gelfoam 12 Mm/7 Mm Top) 1 foam UNSCH PRN TOP 07/31/17 11:15 (NS Flush) UNSCH PRN IVF 07/31/17 15:45 (Heparin Inj) UNSCH PRN IV FLUSH 07/31/17 15:45 (Senokot) 17.2 mg Q12H PRN PO 08/01/17 14:15 (Dulcolax Supp) 10 mg DAILY PRN RECTAL 08/01/17 14:15 (Lactulose Liq) 30 ml DAILY PRN PO 08/01/17 14:15 (Norvasc) 10 mg DAILY PO 08/05/17 09:00 08/08/17 09:40 (Apresoline) 100 mg TID PO 08/06/17 13:00 08/08/17 11:58 (NovoLOG SUPPLEMENTAL SCALE) 1 ACHS SLIDING SCALE SQ 08/07/17 08:00 08/07/17 21:17 (Vistaril) 25 mg Q6H PRN PO 08/07/17 13:45 08/07/17 18:13 Urinary Catheter: No Side: Right Location: Internal, Jugular A/P Problem List: (1) Alcohol abuse ICD Code: F10.10 - Alcohol abuse, uncomplicated (2) CAD (coronary artery disease) ICD Code: I25.10 - Atherosclerotic heart disease of [place] coronary artery without angina pectoris (3) Hypertension ICD Code: I10 - Essential (primary) hypertension (4) Tobacco abuse ICD Code: Z72.0 - Tobacco use (5) Hyperlipidemia ICD Code: E78.5 - Hyperlipidemia, unspecified (6) Diabetes ICD Code: E11.9 - Type 2 diabetes mellitus without complications Status: Chronic (7) STEMI (ST elevation myocardial infarction) ICD Code: I21.3 - ST elevation (STEMI) myocardial infarction of unspecified site Status: Acute Assessment and Plan 52-year-old female admitted for: Acute on chronic kidney disease: Likely related to [place] and contrast: GFR 13. Redraw labs in the morning. Diabetes: Blood glucose range past 24 hours 120- 204. Patient required 5 units of supplemental insulin during this period. Hypertension: Patient evidenced 4 episodes of systolic blood pressure being greater than 160 in the past 24 hours. Supplemental Catapres 0.1 mg given one time. Anxiety: Hydroxyzine 25 mg every 6 hours I mouth as needed for anxiety. Acute myocardial infarction. Status post cardiac catheterization with stent to the proximal LAD -Stable. Continue aspirin, Plavix, Lopressor, Norvasc, and statin. Unable to start JOSE ROBERTO inhibitor secondary to acute kidney injury Acute on chronic kidney disease: Likely related to [place] and contrast. - Nephrology following. Patient requiring dialysis. Last hemodialysis on Thursday. Renal function is still depressed but stable. - Continue to monitor. Per renal, okay for discharge if GFR over 15 Diabetes mellitus: Untreated. Hemoglobin A1c 7.3 - Continue sliding scale insulin with Accu-Cheks. Well controlled at this time. - Diabetes education Hypertension: Continue Norvasc and hydralazine. -Continue to monitor Hyperlipidemia: continue on statin Case discussed with patient, charge nurse, RN, and Dr. Peng. Discharge Planning Patient to be discharged home when GFR greater than 15 as noted by nephrology. Problem Qualifiers (1) Diabetes: Qualified Codes: E11.22 - Type 2 diabetes mellitus with diabetic chronic kidney disease (2) STEMI (ST elevation myocardial infarction): Qualified Codes: I21.3 - ST elevation (STEMI) myocardial infarction of unspecified site Chico Khan Jr. Aug 08, 2017 14:11
--- NOTE | 2017-08-08 16:42 | HHI.NPPN ---
Subjective History of Present Illness 52-year-old female with past medical history of diabetes mellitus for the last more than 20 years, history of hypertension and history of chronic kidney disease, came to the hospital with complaint of chest pain and shortness of breath. I was called to see the patient because of elevated BUN and creatinine. Additional Remarks Patient is alert, feeling tired, not in distress, sitting on the chair. Review of Systems Respiratory Lungs: SOB, Wheeze Cardiovascular Cardiac: Chest Pain, Edema, PENNY Objective Data Data Vital Signs Date Time Temp Pulse Resp B/P (MAP) Pulse Ox O2 Delivery O2 Flow Rate FiO2 08/08/17 14:23 Room Air 08/08/17 12:00 98.1 59 16 164/76 (105) 98 08/08/17 09:15 98 21 08/08/17 08:00 98.3 63 16 151/71 (97) 98 08/08/17 04:00 Room Air 08/08/17 04:00 98.4 61 16 129/65 (86) 98 08/08/17 00:00 Room Air 08/07/17 21:00 Room Air 08/07/17 20:00 97.6 75 20 182/83 (116) 99 -: 08/06/17 0624 08/08/17 0555 Physical Exam General Appearance: No Acute Distress, Comfortable Eyes Eye Exam: Pupils Equal Throat Throat Exam: Oral Mucosa [place] & Moist Neck Neck Exam: Neck Supple Pulmonary Resp Exam: Breath Sounds Equal, No Distress, Rhonchi, Decreased Bases Cardiology CV Exam: Regular, Normal Sinus Rhythm Gastrointestinal/Abdomen GI Exam: Soft, Non-Tender, Bowel Sounds Present, Non-Distended Extremeties Extremities Exam: Trace Edema Neurologic Neuro Exam: Alert, Awake, Oriented Psychiatric Psych Exam: Appropriate Responses Assessment/Plan Assessment Summary: EUGENE/Acute Renal Failure, Hypertension, CKD Stage IV Problem List: (1) STEMI (ST elevation myocardial infarction) ICD Codes: I21.3 - ST elevation (STEMI) myocardial infarction of unspecified site Status: Acute (2) CAD (coronary artery disease) ICD Codes: I25.10 - Atherosclerotic heart disease of [place] coronary artery without angina pectoris (3) Diabetes ICD Codes: E11.9 - Type 2 diabetes mellitus without complications Status: Chronic (4) Hyperlipidemia ICD Codes: E78.5 - Hyperlipidemia, unspecified (5) Hypertension ICD Codes: I10 - Essential (primary) hypertension Plan Patient remain non oliguric. BP is better. She most likely has chronic kidney disease. Possibly related to Hypertensive or renovascular disease. Now also has EUGENE, related to Acute [place] and contrast. Started on HD, has last HD on Sat. Urine out put is good. Encourage oral fluid. Once GFR above 15 ml/min., can be discharge. Avoid Nephrotoxins, her creatinine was 1.1 in April 2015. Follow the urine out put and BMP. Creatinine is 3.6-3.8, and the GFR now 13 ml/min. Once GFR stays above 15 ml/min., can be discharged. Problem Qualifiers (1) STEMI (ST elevation myocardial infarction): Qualified Codes: I21.3 - ST elevation (STEMI) myocardial infarction of unspecified site (2) Diabetes: Qualified Codes: E11.22 - Type 2 diabetes mellitus with diabetic chronic kidney disease Adebayo Balderas MD Aug 08, 2017 16:42
[2017-08-08] MEDS: SODIUM CHLORIDE 0.9% FLUSH 10 ML FLUSH IV FLUSH PRN (21:11)
[2017-08-08] MEDS: INSULIN DETEMIR 100 UNITS/ML VIAL SQ SCH (21:12)
[2017-08-08] MEDS: hydrOXYzine PAMOATE 25 MG CAP PO PRN (21:12)
[2017-08-08] MEDS: TEMAZEPAM 15 MG CAP PO PRN (21:12)
[2017-08-08] MEDS: ATORVASTATIN 40 MG TAB PO SCH (21:12)
[2017-08-09] VITALS (7 sets, daily range): BP systolic 130–156; BP diastolic 61–77; PULSE 60–67; RESP 20; TEMP 97.4–98.2; O2SAT 96–98
[2017-08-09] MEDS: LEVOTHYROXINE SODIUM 50 MCG TAB PO SCH (05:31)
[2017-08-09] MEDS: hydrALAZINE HCL 50 MG TAB PO SCH ×3 (08:46→17:48)
[2017-08-09] MEDS: METOPROLOL TARTRATE 25 MG TAB PO SCH ×2 (08:47→21:14)
[2017-08-09] MEDS: amLODIPine BESYLATE 5 MG TAB PO SCH (08:47)
[2017-08-09] MEDS: ASPIRIN 81 MG CHEW TAB PO SCH (08:47)
[2017-08-09] MEDS: INSULIN ASPART SUPPLEMENTAL SCALE SQ SCH ×4 (08:47→21:00)
[2017-08-09] MEDS: CLOPIDOGREL 75 MG TAB PO SCH (08:47)
[2017-08-09] MEDS: REMOVE OLD PATCH T-DERMAL SCH (08:51)
[2017-08-09] MEDS: NICOTINE 14 MG/24 HR PATCH T-DERMAL SCH (08:51)
[2017-08-09 08:58] LABS: BICARBONATE 22.6 MEQ/L (21.0-32.0); POTASSIUM 4.7 MEQ/L (3.5-5.1)
--- NOTE | 2017-08-09 12:01 | HHI.NPPN ---
Subjective History of Present Illness 52-year-old female with past medical history of diabetes mellitus for the last more than 20 years, history of hypertension and history of chronic kidney disease, came to the hospital with complaint of chest pain and shortness of breath. I was called to see the patient because of elevated BUN and creatinine. Additional Remarks Patient is alert, not in distress, sitting on the chair, clinically same. Review of Systems Respiratory Lungs: SOB, Wheeze Cardiovascular Cardiac: Chest Pain, Edema, PENNY Objective Data Data Vital Signs Date Time Temp Pulse Resp B/P (MAP) Pulse Ox O2 Delivery O2 Flow Rate FiO2 08/09/17 08:05 98 21 08/09/17 08:00 Room Air 08/09/17 08:00 97.4 60 20 147/68 (94) 97 08/09/17 04:00 97.5 63 20 139/67 (91) 96 08/09/17 04:00 Room Air 08/09/17 00:00 Room Air 08/09/17 00:00 97.8 62 20 138/65 (89) 96 08/08/17 21:22 142/80 (100) 08/08/17 20:00 Room Air 08/08/17 20:00 97.6 66 20 153/99 (117) 96 08/08/17 16:00 97.7 63 16 167/81 (109) 98 08/08/17 14:23 Room Air 08/08/17 12:00 98.1 59 16 164/76 (105) 98 -: 08/06/17 0624 08/09/17 0650 Physical Exam General Appearance: No Acute Distress, Comfortable Eyes Eye Exam: Pupils Equal Throat Throat Exam: Oral Mucosa [place] & Moist Neck Neck Exam: Neck Supple Pulmonary Resp Exam: Breath Sounds Equal, No Distress, Rhonchi, Decreased Bases Cardiology CV Exam: Regular, Normal Sinus Rhythm Gastrointestinal/Abdomen GI Exam: Soft, Non-Tender, Bowel Sounds Present, Non-Distended Extremeties Extremities Exam: Trace Edema Neurologic Neuro Exam: Alert, Awake, Oriented Psychiatric Psych Exam: Appropriate Responses Assessment/Plan Assessment Summary: EUGENE/Acute Renal Failure, Hypertension, CKD Stage IV Problem List: (1) STEMI (ST elevation myocardial infarction) ICD Codes: I21.3 - ST elevation (STEMI) myocardial infarction of unspecified site Status: Acute (2) CAD (coronary artery disease) ICD Codes: I25.10 - Atherosclerotic heart disease of [place] coronary artery without angina pectoris (3) Diabetes ICD Codes: E11.9 - Type 2 diabetes mellitus without complications Status: Chronic (4) Hyperlipidemia ICD Codes: E78.5 - Hyperlipidemia, unspecified (5) Hypertension ICD Codes: I10 - Essential (primary) hypertension Plan Patient remain non oliguric. BP is better. She most likely has chronic kidney disease. Possibly related to Hypertensive or renovascular disease, or Diabetic Nephropathy. Now also has EUGENE, related to Acute [place] and contrast. Started on HD, has last HD on Sat. Urine out put is good. Encourage oral fluid. Once GFR above 15 ml/min., can be discharge. Avoid Nephrotoxins, her creatinine was 1.1 in April 2015. Follow the urine out put and BMP. Creatinine is 3.6-3.8, and the GFR now 12 ml/min. If no improvement in renal function by tomorrow, will need kidney Biopsy. Problem Qualifiers (1) STEMI (ST elevation myocardial infarction): Qualified Codes: I21.3 - ST elevation (STEMI) myocardial infarction of unspecified site (2) Diabetes: Qualified Codes: E11.22 - Type 2 diabetes mellitus with diabetic chronic kidney disease (3) Hypertension: Qualified Codes: I10 - Essential (primary) hypertension Adebayo Balderas MD Aug 09, 2017 12:01
--- NOTE | 2017-08-09 15:05 | HHI.PR ---
Subjective Remarks Follow-up MS and acute kidney injury. Patient seen and evaluated. Patient laying in bed, covers pulled up to her neck and stated "I feel miserable." Patient stated she had seen Dr. Balderas (nephrology) who was reported to have told her that she will undergo a renal biopsy later in the week. Patient stated that she is not able to go home as she had hoped. Patient reported having had another "panic attack" last evening. She stated she took "a pill him a sleeping medication and that helped needed to sleep all night". Patient stated last night's panic attack was not as bad as the previous event. No new acute issues reported by patient. Pt denied fever, cough, shortness of breath, nausea, vomiting, diarrhea, abdominal/chest pain Per RN (Allegra) no acute issues noted overnight or since start of shift. Objective Vitals Vital Signs Date Time Temp Pulse Resp B/P (MAP) Pulse Ox O2 Delivery O2 Flow Rate FiO2 08/09/17 08:05 98 21 08/09/17 08:00 Room Air 08/09/17 08:00 97.4 60 20 147/68 (94) 97 08/09/17 04:00 97.5 63 20 139/67 (91) 96 08/09/17 04:00 Room Air 08/09/17 00:00 Room Air 08/09/17 00:00 97.8 62 20 138/65 (89) 96 08/08/17 21:22 142/80 (100) 08/08/17 20:00 Room Air 08/08/17 20:00 97.6 66 20 153/99 (117) 96 08/08/17 16:00 97.7 63 16 167/81 (109) 98 I/O 08/08/17 08/08/17 08/08/17 08/09/17 08/09/17 08/09/17 07:00 15:00 23:00 07:00 15:00 23:00 Intake Total 600 ml 480 ml 300 ml Output Total 500 ml Balance 600 ml 480 ml -200 ml Intake Oral 600 ml 480 ml 300 ml Output Urine Total 500 ml # Voids 4 5 # Bowel Movements 2 0 Result Diagram: 08/06/17 0624 08/09/17 0650 Objective Remarks GENERAL: Patient encountered laying in bed with covers pulled up to her neck, Mild emotional distress. SKIN: Warm and dry. Dialysis ports noted in patient's right side of the neck. Peripheral line noted in left wrist. HEAD: Normocephalic. EYES: No scleral icterus. No injection or drainage. NECK: Supple, trachea midline. No lymphadenopathy. CARDIOVASCULAR: Regular rate and rhythm without murmurs, gallops, or rubs. RESPIRATORY: Breath sounds equal bilaterally. No wheezes rhonchi or crackles. No accessory muscle use. GASTROINTESTINAL: Abdomen soft, non-tender, nondistended. MUSCULOSKELETAL: No cyanosis, or edema. PSYCHIATRIC: Mood and affect sad; insight and judgment normal. Patient was pleasant and cooperative. Procedures cardiac cath Vasc cath placement Medications and IVs Current Medications Medications (Trade) Dose Ordered Sig/Stephan Route Start Time Stop Time Status Last Admin (NS Flush) 2 ml UNSCH PRN IV FLUSH 07/27/17 14:00 08/08/17 21:11 (NS Flush) 2 ml UNSCH PRN IVF 07/27/17 16:00 (Tylenol) 325 mg Q4H PRN PO 07/27/17 18:30 07/28/17 23:06 (Percocet 5-325 Mg) 1 tab Q4H PRN PO 07/27/17 18:30 08/02/17 19:17 (Percocet 10-325 Mg) 1 tab Q4H PRN PO 07/27/17 18:30 (Restoril) 15 mg HS PRN PO 07/27/17 18:30 08/08/17 21:12 (Aspirin Chew) 81 mg DAILY PO 07/28/17 09:00 08/09/17 08:47 (Plavix) 75 mg DAILY PO 07/28/17 09:00 08/09/17 08:47 (Atropine Inj) 0.5 mg UNSCH PRN IV PUSH 07/27/17 18:30 (Zofran Inj) 4 mg Q4H PRN IV PUSH 07/27/17 18:30 07/28/17 21:25 (Lopressor) 50 mg BID PO 07/27/17 21:00 08/09/17 08:47 Nitroglycerin/ Dextrose 250 ml @ 6 mls/hr TITRATE PRN IV 07/27/17 22:45 07/28/17 18:43 (Lopressor Inj) 5 mg Q1H PRN IV PUSH 07/27/17 22:45 07/28/17 22:26 (Lipitor) 40 mg HS PO 07/28/17 21:00 08/08/17 21:12 (Levemir Inj) 10 units HS SQ 07/28/17 21:00 08/08/17 21:12 (Catapres) 0.1 mg Q4H PRN PO 07/28/17 08:45 08/08/17 18:13 (D50w (Vial) Inj) 50 ml UNSCH PRN IV 07/28/17 08:45 (Glucagon Inj) 1 mg UNSCH PRN OTHER 07/28/17 08:45 (Habitrol 14 Mg Patch.24 Hr) 1 patch DAILY T-DERMAL 07/29/17 09:00 08/09/17 08:51 Miscellaneous Information 1 DAILY T-DERMAL 07/28/17 09:00 08/09/17 08:51 (Compazine Inj) 5 mg Q8H PRN IV PUSH 07/28/17 23:45 (Synthroid) 50 mcg DAILY@0600 PO 07/29/17 13:00 08/09/17 05:31 Sodium Chloride 1,000 ml @ 0 mls/hr Q0M PRN OTHER 07/31/17 11:09 (Heparin Inj) 8,000 units UNSCH PRN IV FLUSH 07/31/17 11:15 Sodium Chloride 1,000 ml @ 200 mls/hr Q5H PRN IV 07/31/17 11:09 08/01/17 11:51 Sodium Chloride 1,000 ml @ 0 mls/hr Q0M PRN OTHER 07/31/17 11:09 (Mannitol Inj) 12.5 gm UNSCH PRN IV 07/31/17 11:15 (Albumin 25% Inj) 25 gm UNSCH PRN IV 07/31/17 11:15 (NS Flush) 5 ml UNSCH PRN IV FLUSH 07/31/17 11:15 (Heparin Inj) UNSCH PRN .XX 07/31/17 11:15 08/01/17 11:51 (Gentamicin (Dialysis) Inj) 20 mg UNSCH PRN OTHER 07/31/17 11:15 08/01/17 11:51 (Zofran Inj) 4 mg UNSCH PRN IV PUSH 07/31/17 11:15 07/31/17 15:20 (Tylenol) 650 mg UNSCH PRN PO 07/31/17 11:15 (Benadryl) 25 mg UNSCH PRN PO 07/31/17 11:15 (Nitrostat Sl) 0.4 mg UNSCH PRN SL 07/31/17 11:15 (Catapres) 0.1 mg UNSCH PRN PO 07/31/17 11:15 (Epogen Inj) 4,000 units UNSCH PRN IV 07/31/17 12:15 (Gelfoam 12 Mm/7 Mm Top) 1 foam UNSCH PRN TOP 07/31/17 11:15 (NS Flush) UNSCH PRN IVF 07/31/17 15:45 (Heparin Inj) UNSCH PRN IV FLUSH 07/31/17 15:45 (Senokot) 17.2 mg Q12H PRN PO 08/01/17 14:15 (Dulcolax Supp) 10 mg DAILY PRN RECTAL 08/01/17 14:15 (Lactulose Liq) 30 ml DAILY PRN PO 08/01/17 14:15 (Norvasc) 10 mg DAILY PO 08/05/17 09:00 08/09/17 08:47 (Apresoline) 100 mg TID PO 08/06/17 13:00 08/09/17 13:09 (NovoLOG SUPPLEMENTAL SCALE) 1 ACHS SLIDING SCALE SQ 08/07/17 08:00 08/09/17 13:09 (Vistaril) 25 mg Q6H PRN PO 08/07/17 13:45 08/08/17 21:12 Urinary Catheter: No Side: Right Location: Internal, Jugular A/P Problem List: (1) Alcohol abuse ICD Code: F10.10 - Alcohol abuse, uncomplicated (2) CAD (coronary artery disease) ICD Code: I25.10 - Atherosclerotic heart disease of [place] coronary artery without angina pectoris (3) Hypertension ICD Code: I10 - Essential (primary) hypertension (4) Tobacco abuse ICD Code: Z72.0 - Tobacco use (5) Hyperlipidemia ICD Code: E78.5 - Hyperlipidemia, unspecified (6) Diabetes ICD Code: E11.9 - Type 2 diabetes mellitus without complications Status: Chronic (7) STEMI (ST elevation myocardial infarction) ICD Code: I21.3 - ST elevation (STEMI) myocardial infarction of unspecified site Status: Acute Assessment and Plan 52-year-old female admitted for: Acute on chronic kidney disease: Likely related to [place] and contrast: GFR 12. Redraw labs in the morning. Per nephrology, renal biopsy may be needed if patient's creatinine does not improve. Diabetes: Blood glucose range past 24 hours 142-206. Patient required 6 units of supplemental insulin during this period. Hypertension: Patient evidenced 2 episodes of systolic blood pressure being greater than 160 in the past 24 hours. Supplemental Catapres 0.1 mg given twice during this time. Anxiety: Hydroxyzine given last night for anxiety.. Acute myocardial infarction. Status post cardiac catheterization with stent to the proximal LAD -Stable. Continue aspirin, Plavix, Lopressor, Norvasc, and statin. Unable to start JOSE ROBERTO inhibitor secondary to acute kidney injury Acute on chronic kidney disease: Likely related to [place] and contrast. - Nephrology following. Patient requiring dialysis. Last hemodialysis on Thursday. Renal function is still depressed but stable. - Continue to monitor. Per renal, okay for discharge if GFR over 15 Diabetes mellitus: Untreated. Hemoglobin A1c 7.3 - Continue sliding scale insulin with Accu-Cheks. Well controlled at this time. - Diabetes education Hypertension: Continue Norvasc and hydralazine. -Continue to monitor Hyperlipidemia: continue on statin Case discussed with patient, charge nurse , RN, and Dr. Peng. Discharge Planning Patient to be discharged home when GFR greater than 15 as noted by nephrology. Problem Qualifiers (1) Hypertension: Qualified Codes: I10 - Essential (primary) hypertension (2) Diabetes: Qualified Codes: E11.22 - Type 2 diabetes mellitus with diabetic chronic kidney disease (3) STEMI (ST elevation myocardial infarction): Qualified Codes: I21.3 - ST elevation (STEMI) myocardial infarction of unspecified site Chico Khan Jr. Aug 09, 2017 15:05
[2017-08-09] MEDS: TEMAZEPAM 15 MG CAP PO PRN (21:14)
[2017-08-09] MEDS: hydrOXYzine PAMOATE 25 MG CAP PO PRN (21:15)
[2017-08-09] MEDS: INSULIN DETEMIR 100 UNITS/ML VIAL SQ SCH (21:15)
[2017-08-09] MEDS: ATORVASTATIN 40 MG TAB PO SCH (21:15)
[2017-08-10] VITALS: BP 131/61; PULSE 67; RESP 20; TEMP 97.6; O2SAT 98
[2017-08-10 04:00] VITALS: BP_SYST 133; BP_SYST 156; BP_DIAS 63; BP_DIAS 77; PULSE 61; RESP 20; TEMP 97.9; O2SAT 97
[2017-08-10] MEDS: LEVOTHYROXINE SODIUM 50 MCG TAB PO SCH (06:00)
[2017-08-10 07:55] LABS: BICARBONATE 20.4 MEQ/L (21.0-32.0); POTASSIUM 4.6 MEQ/L (3.5-5.1)
[2017-08-10 08:00] VITALS: BP 168/77; PULSE 63; RESP 20; TEMP 98; O2SAT 96
[2017-08-10] MEDS: INSULIN ASPART SUPPLEMENTAL SCALE SQ SCH ×4 (08:00→20:28)
[2017-08-10] MEDS: REMOVE OLD PATCH T-DERMAL SCH (09:00)
[2017-08-10] MEDS: hydrALAZINE HCL 50 MG TAB PO SCH ×3 (09:02→18:33)
[2017-08-10] MEDS: METOPROLOL TARTRATE 25 MG TAB PO SCH ×2 (09:02→20:27)
[2017-08-10] MEDS: amLODIPine BESYLATE 5 MG TAB PO SCH (09:02)
[2017-08-10] MEDS: CLOPIDOGREL 75 MG TAB PO SCH (09:02)
[2017-08-10] MEDS: ASPIRIN 81 MG CHEW TAB PO SCH (09:02)
[2017-08-10] MEDS: NICOTINE 14 MG/24 HR PATCH T-DERMAL SCH (09:03)
[2017-08-10 12:00] VITALS: BP 115/56; PULSE 58; RESP 20; TEMP 98; O2SAT 96
--- NOTE | 2017-08-10 13:47 | HHI.PR ---
Subjective Remarks Follow-up AL and acute kidney injury. Patient seen and evaluated. Patient laying in bed, covers pulled up to her neck and stated "I feel miserable." Pt noted she has some anxiety related to renal biopsy that is scheduled for tomorrow. She noted she is taking Vistaril and sleeping pill in order to sleep. Noted her quality of sleep has improved with this regimen. Pt discussed her history of "uncontrolled diabetes and high blood pressure" as related to her kidney issues. Pt said she had not regularly seen a physician for care before "my heart attack that brought me in here." Pt also reported she had "a 30 year history of smoking cigarettes" about a pack a day. No new acute issues reported by patient. Pt denied fever, cough, shortness of breath, nausea, vomiting, diarrhea, abdominal/chest pain Per RN (Caryn) no acute issues noted overnight or since start of shift. Objective Vitals Vital Signs Date Time Temp Pulse Resp B/P (MAP) Pulse Ox O2 Delivery O2 Flow Rate FiO2 08/10/17 08:00 98.0 63 20 168/77 (107) 96 08/10/17 04:00 97.9 61 20 133/63 (86) 97 08/10/17 00:00 97.6 67 20 131/61 (84) 98 08/10/17 00:00 Room Air 08/09/17 20:00 Room Air 08/09/17 20:00 98.2 67 20 156/77 (103) 97 08/09/17 16:00 97.5 64 20 143/68 (93) 98 I/O 08/09/17 08/09/17 08/09/17 08/10/17 08/10/17 08/10/17 07:00 15:00 23:00 07:00 15:00 23:00 Intake Total 300 ml 600 ml 240 ml Output Total 500 ml Balance -200 ml 600 ml 240 ml Intake Oral 300 ml 600 ml 240 ml Output Urine Total 500 ml # Voids 3 3 # Bowel Movements 0 0 Result Diagram: 08/06/17 0624 08/10/17 0650 Objective Remarks GENERAL: Patient encountered laying in bed with covers pulled up to her neck, Mild emotional distress. SKIN: Warm and dry. Dialysis ports noted in patient's right side of the neck. Peripheral line noted in left wrist. HEAD: Normocephalic. EYES: No scleral icterus. No injection or drainage. NECK: Supple, trachea midline. No lymphadenopathy. CARDIOVASCULAR: Regular rate and rhythm without murmurs, gallops, or rubs. RESPIRATORY: Breath sounds equal bilaterally. No wheezes rhonchi or crackles. No accessory muscle use. GASTROINTESTINAL: Abdomen soft, non-tender, nondistended. MUSCULOSKELETAL: No cyanosis, or edema. PSYCHIATRIC: Mood and affect sad; insight and judgment normal. Patient was pleasant and cooperative. Procedures cardiac cath Vasc cath placement Medications and IVs Current Medications Medications (Trade) Dose Ordered Sig/Stephan Route Start Time Stop Time Status Last Admin (NS Flush) 2 ml UNSCH PRN IV FLUSH 07/27/17 14:00 08/08/17 21:11 (NS Flush) 2 ml UNSCH PRN IVF 07/27/17 16:00 (Tylenol) 325 mg Q4H PRN PO 07/27/17 18:30 07/28/17 23:06 (Percocet 5-325 Mg) 1 tab Q4H PRN PO 07/27/17 18:30 08/02/17 19:17 (Percocet 10-325 Mg) 1 tab Q4H PRN PO 07/27/17 18:30 (Restoril) 15 mg HS PRN PO 07/27/17 18:30 08/09/17 21:14 (Aspirin Chew) 81 mg DAILY PO 07/28/17 09:00 08/10/17 09:02 (Plavix) 75 mg DAILY PO 07/28/17 09:00 08/10/17 09:02 (Atropine Inj) 0.5 mg UNSCH PRN IV PUSH 07/27/17 18:30 (Zofran Inj) 4 mg Q4H PRN IV PUSH 07/27/17 18:30 07/28/17 21:25 (Lopressor) 50 mg BID PO 07/27/17 21:00 08/10/17 09:02 Nitroglycerin/ Dextrose 250 ml @ 6 mls/hr TITRATE PRN IV 07/27/17 22:45 07/28/17 18:43 (Lopressor Inj) 5 mg Q1H PRN IV PUSH 07/27/17 22:45 07/28/17 22:26 (Lipitor) 40 mg HS PO 07/28/17 21:00 08/09/17 21:15 (Levemir Inj) 10 units HS SQ 07/28/17 21:00 08/09/17 21:15 (Catapres) 0.1 mg Q4H PRN PO 07/28/17 08:45 08/08/17 18:13 (D50w (Vial) Inj) 50 ml UNSCH PRN IV 07/28/17 08:45 (Glucagon Inj) 1 mg UNSCH PRN OTHER 07/28/17 08:45 (Habitrol 14 Mg Patch.24 Hr) 1 patch DAILY T-DERMAL 07/29/17 09:00 08/10/17 09:03 Miscellaneous Information 1 DAILY T-DERMAL 07/28/17 09:00 08/10/17 09:00 (Compazine Inj) 5 mg Q8H PRN IV PUSH 07/28/17 23:45 (Synthroid) 50 mcg DAILY@0600 PO 07/29/17 13:00 08/10/17 06:00 Sodium Chloride 1,000 ml @ 0 mls/hr Q0M PRN OTHER 07/31/17 11:09 (Heparin Inj) 8,000 units UNSCH PRN IV FLUSH 07/31/17 11:15 Sodium Chloride 1,000 ml @ 200 mls/hr Q5H PRN IV 07/31/17 11:09 08/01/17 11:51 Sodium Chloride 1,000 ml @ 0 mls/hr Q0M PRN OTHER 07/31/17 11:09 (Mannitol Inj) 12.5 gm UNSCH PRN IV 07/31/17 11:15 (Albumin 25% Inj) 25 gm UNSCH PRN IV 07/31/17 11:15 (NS Flush) 5 ml UNSCH PRN IV FLUSH 07/31/17 11:15 (Heparin Inj) UNSCH PRN .XX 07/31/17 11:15 08/01/17 11:51 (Gentamicin (Dialysis) Inj) 20 mg UNSCH PRN OTHER 07/31/17 11:15 08/01/17 11:51 (Zofran Inj) 4 mg UNSCH PRN IV PUSH 07/31/17 11:15 07/31/17 15:20 (Tylenol) 650 mg UNSCH PRN PO 07/31/17 11:15 (Benadryl) 25 mg UNSCH PRN PO 07/31/17 11:15 (Nitrostat Sl) 0.4 mg UNSCH PRN SL 07/31/17 11:15 (Catapres) 0.1 mg UNSCH PRN PO 07/31/17 11:15 (Epogen Inj) 4,000 units UNSCH PRN IV 07/31/17 12:15 (Gelfoam 12 Mm/7 Mm Top) 1 foam UNSCH PRN TOP 07/31/17 11:15 (NS Flush) UNSCH PRN IVF 07/31/17 15:45 (Heparin Inj) UNSCH PRN IV FLUSH 07/31/17 15:45 (Senokot) 17.2 mg Q12H PRN PO 08/01/17 14:15 (Dulcolax Supp) 10 mg DAILY PRN RECTAL 08/01/17 14:15 (Lactulose Liq) 30 ml DAILY PRN PO 08/01/17 14:15 (Norvasc) 10 mg DAILY PO 08/05/17 09:00 08/10/17 09:02 (Apresoline) 100 mg TID PO 08/06/17 13:00 08/10/17 12:24 (NovoLOG SUPPLEMENTAL SCALE) 1 ACHS SLIDING SCALE SQ 08/07/17 08:00 08/10/17 12:58 (Vistaril) 25 mg Q6H PRN PO 08/07/17 13:45 08/09/17 21:15 Urinary Catheter: No Side: Right Location: Internal, Jugular A/P Problem List: (1) Alcohol abuse ICD Code: F10.10 - Alcohol abuse, uncomplicated (2) CAD (coronary artery disease) ICD Code: I25.10 - Atherosclerotic heart disease of [place] coronary artery without angina pectoris (3) Hypertension ICD Code: I10 - Essential (primary) hypertension (4) Tobacco abuse ICD Code: Z72.0 - Tobacco use (5) Hyperlipidemia ICD Code: E78.5 - Hyperlipidemia, unspecified (6) Diabetes ICD Code: E11.9 - Type 2 diabetes mellitus without complications Status: Chronic (7) STEMI (ST elevation myocardial infarction) ICD Code: I21.3 - ST elevation (STEMI) myocardial infarction of unspecified site Status: Acute Assessment and Plan 52-year-old female admitted for: Acute on chronic kidney disease: Likely related to AL and contrast: GFR 12. Renal biopsy scheduled for 08/11/17. Diabetes: Blood glucose range past 24 hours 107-206. Patient required 5 units of supplemental insulin during this period. Hypertension: Patient evidenced no episodes of systolic blood pressure being greater than 160 in the past 24 hours. Anxiety: Hydroxyzine given last night for anxiety and to help pt sleep. Acute myocardial infarction. Status post cardiac catheterization with stent to the proximal LAD -Stable. Continue aspirin, Plavix, Lopressor, Norvasc, and statin. Unable to start JOSE ROBERTO inhibitor secondary to acute kidney injury Acute on chronic kidney disease: Likely related to [place] and contrast. - Nephrology following. Patient requiring dialysis. Last hemodialysis on Thursday. Renal function is still depressed but stable. - Continue to monitor. Per renal, okay for discharge if GFR over 15 Diabetes mellitus: Untreated. Hemoglobin A1c 7.3 - Continue sliding scale insulin with Accu-Cheks. Well controlled at this time. - Diabetes education Hypertension: Continue Norvasc and hydralazine. -Continue to monitor Hyperlipidemia: continue on statin Case discussed with patient, RN, and Dr. Peng. Discharge Planning Patient to be discharged home when GFR greater than 15 as noted by nephrology. Problem Qualifiers (1) Hypertension: Qualified Codes: I10 - Essential (primary) hypertension (2) Diabetes: Qualified Codes: E11.22 - Type 2 diabetes mellitus with diabetic chronic kidney disease (3) STEMI (ST elevation myocardial infarction): Qualified Codes: I21.3 - ST elevation (STEMI) myocardial infarction of unspecified site Chico Khan Jr. Aug 10, 2017 13:47
[2017-08-10 16:00] VITALS: BP 162/78; PULSE 66; RESP 20; TEMP 98.7; O2SAT 96
--- NOTE | 2017-08-10 16:55 | HHI.NPPN ---
Subjective History of Present Illness 52-year-old female with past medical history of diabetes mellitus for the last more than 20 years, history of hypertension and history of chronic kidney disease, came to the hospital with complaint of chest pain and shortness of breath. I was called to see the patient because of elevated BUN and creatinine. Additional Remarks Patient is alert, not in distress, eating well, not in distress. Review of Systems Respiratory Lungs: SOB, Wheeze Cardiovascular Cardiac: Chest Pain, Edema, PENNY Objective Data Data Vital Signs Date Time Temp Pulse Resp B/P (MAP) Pulse Ox O2 Delivery O2 Flow Rate FiO2 08/10/17 08:00 Room Air 08/10/17 08:00 98.0 63 20 168/77 (107) 96 08/10/17 04:00 97.9 61 20 133/63 (86) 97 08/10/17 00:00 97.6 67 20 131/61 (84) 98 08/10/17 00:00 Room Air 08/09/17 20:00 Room Air 08/09/17 20:00 98.2 67 20 156/77 (103) 97 -: 08/06/17 0624 08/10/17 0650 Physical Exam General Appearance: No Acute Distress, Comfortable Eyes Eye Exam: Pupils Equal Throat Throat Exam: Oral Mucosa [place] & Moist Neck Neck Exam: Neck Supple Pulmonary Resp Exam: Breath Sounds Equal, No Distress, Rhonchi, Decreased Bases Cardiology CV Exam: Regular, Normal Sinus Rhythm Gastrointestinal/Abdomen GI Exam: Soft, Non-Tender, Bowel Sounds Present, Non-Distended Extremeties Extremities Exam: Trace Edema Neurologic Neuro Exam: Alert, Awake, Oriented Psychiatric Psych Exam: Appropriate Responses Assessment/Plan Assessment Summary: EUGENE/Acute Renal Failure, Hypertension, CKD Stage IV Problem List: (1) STEMI (ST elevation myocardial infarction) ICD Codes: I21.3 - ST elevation (STEMI) myocardial infarction of unspecified site Status: Acute (2) CAD (coronary artery disease) ICD Codes: I25.10 - Atherosclerotic heart disease of [place] coronary artery without angina pectoris (3) Diabetes ICD Codes: E11.9 - Type 2 diabetes mellitus without complications Status: Chronic (4) Hyperlipidemia ICD Codes: E78.5 - Hyperlipidemia, unspecified (5) Hypertension ICD Codes: I10 - Essential (primary) hypertension Plan Patient remain non oliguric. BP is better. She most likely has chronic kidney disease. Possibly related to Hypertensive or renovascular disease, or Diabetic Nephropathy. Now also has EUGENE, related to Acute [place] and contrast. Started on HD, has last HD on Sat. Urine out put is good. Encourage oral fluid. Once GFR above 15 ml/min., can be discharge. Avoid Nephrotoxins, her creatinine was 1.1 in April 2015. Follow the urine out put and BMP. Creatinine is 3.6-3.8, and the GFR now 12 ml/min. Kidney Biopsy cannot be done as she is on Plavix, and it cannot be stopped due to recent [place]. Problem Qualifiers (1) STEMI (ST elevation myocardial infarction): Qualified Codes: I21.3 - ST elevation (STEMI) myocardial infarction of unspecified site (2) Diabetes: Qualified Codes: E11.22 - Type 2 diabetes mellitus with diabetic chronic kidney disease (3) Hypertension: Qualified Codes: I10 - Essential (primary) hypertension Adebayo Balderas MD Aug 10, 2017 16:55
[2017-08-10 18:00] LABS: AUTOMATED NEUTROPHIL # 4.7 TH/MM3 (1.8-7.7); BASOPHIL # 0.1 TH/MM3 (0-0.2); BASOPHIL % 1.3 % (0.0-2.0); EOSINOPHIL # 0.4 TH/MM3 (0-0.4); EOSINOPHIL % 5.5 % (0.0-4.0); HEMATOCRIT 30.2 % (35.0-46.0); HEMO FLAGS DIFF FINAL; LYMPH % 22.9 % (9.0-44.0); LYMPHOCYTE # 1.7 TH/MM3 (1.0-4.8); MEAN CELL VOLUME 88.4 FL (80.0-100.0); MEAN CORPUSCULAR HEMOGLOBIN 29.7 PG (27.0-34.0); MEAN CORPUSCULAR HGB CONC 33.6 % (32.0-36.0); MONO % 8.4 % (0.0-8.0); NEUT % 61.9 % (16.0-70.0); PLATELET COUNT 208 TH/MM3 (150-450); RED BLOOD COUNT 3.42 MIL/MM3 (4.00-5.30); RED CELL DISTRIBUTION WIDTH 14.5 % (11.6-17.2); WHITE BLOOD COUNT 7.5 TH/MM3 (4.0-11.0)
[2017-08-10 18:18] LABS: PROTHROMBIN TIME - PATIENT 10.6 SEC (9.8-11.6)
[2017-08-10 20:00] VITALS: BP 156/79; PULSE 70; RESP 21; TEMP 98.5; O2SAT 97
[2017-08-10] MEDS: TEMAZEPAM 15 MG CAP PO PRN (20:26)
[2017-08-10] MEDS: ATORVASTATIN 40 MG TAB PO SCH (20:26)
[2017-08-10] MEDS: INSULIN DETEMIR 100 UNITS/ML VIAL SQ SCH (20:27)
[2017-08-10] MEDS: hydrOXYzine PAMOATE 25 MG CAP PO PRN (20:27)
[2017-08-11] VITALS (7 sets, daily range): BP systolic 120–172; BP diastolic 56–81; PULSE 62–73; RESP 18–22; TEMP 97.3–98.4; O2SAT 94–98
[2017-08-11] MEDS: LEVOTHYROXINE SODIUM 50 MCG TAB PO SCH (05:39)
[2017-08-11] MEDS: INSULIN ASPART SUPPLEMENTAL SCALE SQ SCH ×4 (08:00→20:39)
[2017-08-11] MEDS: amLODIPine BESYLATE 5 MG TAB PO SCH (08:54)
[2017-08-11] MEDS: ASPIRIN 81 MG CHEW TAB PO SCH (08:54)
[2017-08-11] MEDS: hydrALAZINE HCL 50 MG TAB PO SCH ×3 (08:54→17:01)
[2017-08-11] MEDS: METOPROLOL TARTRATE 25 MG TAB PO SCH ×2 (08:54→20:37)
[2017-08-11] MEDS: REMOVE OLD PATCH T-DERMAL SCH (08:55)
[2017-08-11] MEDS: NICOTINE 14 MG/24 HR PATCH T-DERMAL SCH (08:55)
[2017-08-11] MEDS ORDERED: SODIUM CHLOR 0.9% 1000 ML INJ 1,000 ML IV SCH (10:15)
[2017-08-11 11:57] LABS: BICARBONATE 19.3 MEQ/L (21.0-32.0); POTASSIUM 4.8 MEQ/L (3.5-5.1)
[2017-08-11] MEDS: hydrOXYzine PAMOATE 25 MG CAP PO PRN ×2 (12:39→20:37)
[2017-08-11] MEDS: CLOPIDOGREL 75 MG TAB PO SCH (14:43)
--- NOTE | 2017-08-11 15:20 | HHI.PR ---
Subjective Remarks F/u EUGENE. Biopsy consult secondary to patient on antiplatelets. Discussed with nephrology, he is not clearing patient for discharge until GFR is over 15. He is also concerned about patient's ability to continue medications and medical follow-up. Discussed with RN Objective Vitals Vital Signs Date Time Temp Pulse Resp B/P (MAP) Pulse Ox O2 Delivery O2 Flow Rate FiO2 08/11/17 12:00 98.1 64 20 149/71 (97) 98 08/11/17 08:00 97.3 64 18 132/59 (83) 95 Manual Cuff/Auscultation 08/11/17 08:00 Room Air 08/11/17 04:00 97.8 72 22 151/65 (93) 95 08/11/17 04:00 Room Air 08/11/17 00:00 Room Air 08/11/17 00:00 98.4 73 19 151/76 (101) 94 08/10/17 20:30 Room Air 08/10/17 20:00 98.5 70 21 156/79 (104) 97 08/10/17 16:00 98.7 66 20 162/78 (106) 96 I/O 08/10/17 08/10/17 08/10/17 08/11/17 08/11/17 08/11/17 07:00 15:00 23:00 07:00 15:00 23:00 Intake Total 240 ml 360 ml 240 ml Balance 240 ml 360 ml 240 ml Intake Oral 240 ml 360 ml 240 ml # Voids 3 4 4 # Bowel Movements 0 0 Result Diagram: 08/10/17 1746 08/11/17 1116 Objective Remarks Well-developed, well-nourished in distress due to anxiety Equal in expansion clear to auscultation Regular rate and rhythm Abdomen soft nontender extremities no edema and cyanosis Alert and oriented nonfocal Procedures cardiac cath Vasc cath placement Side: Right Location: Internal, Jugular A/P Problem List: (1) Alcohol abuse ICD Code: F10.10 - Alcohol abuse, uncomplicated (2) CAD (coronary artery disease) ICD Code: I25.10 - Atherosclerotic heart disease of [place] coronary artery without angina pectoris (3) Hypertension ICD Code: I10 - Essential (primary) hypertension (4) Tobacco abuse ICD Code: Z72.0 - Tobacco use (5) Hyperlipidemia ICD Code: E78.5 - Hyperlipidemia, unspecified (6) Diabetes ICD Code: E11.9 - Type 2 diabetes mellitus without complications Status: Chronic (7) STEMI (ST elevation myocardial infarction) ICD Code: I21.3 - ST elevation (STEMI) myocardial infarction of unspecified site Status: Acute Assessment and Plan 52-year-old female admitted for: Acute myocardial infarction. Status post cardiac catheterization with stent to the proximal LAD -Stable. Continue aspirin, Plavix, Lopressor, Norvasc, and statin. Unable to start JOSE ROBERTO inhibitor secondary to acute kidney injury Acute on chronic kidney disease: Likely related to [place] and contrast. - Nephrology following. Patient required dialysis last session 08/03/17. Renal function is still depressed but stable. Start gentle IV hydration. - Continue to monitor. Per renal, okay for discharge if GFR over 15 Diabetes mellitus: Untreated. Hemoglobin A1c 7.3 - Continue sliding scale insulin with Accu-Cheks. Well controlled at this time. - Diabetes education Hypertension: Continue Norvasc and hydralazine. -Continue to monitor Hyperlipidemia: continue on statin Smoking and alcohol cessation discussed with the patient. Discharge Planning Discharge when cleared by nephrology. We'll consult case management for assistance Problem Qualifiers (1) Hypertension: Qualified Codes: I10 - Essential (primary) hypertension (2) Diabetes: Qualified Codes: E11.22 - Type 2 diabetes mellitus with diabetic chronic kidney disease (3) STEMI (ST elevation myocardial infarction): Qualified Codes: I21.3 - ST elevation (STEMI) myocardial infarction of unspecified site Julio César Peng MD Aug 11, 2017 15:20
[2017-08-11] MEDS: INSULIN DETEMIR 100 UNITS/ML VIAL SQ SCH (20:38)
[2017-08-11] MEDS: TEMAZEPAM 15 MG CAP PO PRN (20:38)
[2017-08-11] MEDS: ATORVASTATIN 40 MG TAB PO SCH (20:38)
--- NOTE | 2017-08-11 22:15 | HHI.NPPN ---
Subjective History of Present Illness 52-year-old female with past medical history of diabetes mellitus for the last more than 20 years, history of hypertension and history of chronic kidney disease, came to the hospital with complaint of chest pain and shortness of breath. I was called to see the patient because of elevated BUN and creatinine. Additional Remarks Patient is alert, not in distress, sitting on the chair,eating well. Review of Systems Respiratory Lungs: SOB, Wheeze Cardiovascular Cardiac: Chest Pain, Edema, PENNY Objective Data Data 08/11/17 08/12/17 19:00 07:00 Intake Total 960 ml Output Total 1000 ml Balance -40 ml Intake Oral 960 ml Output Urine Total 1000 ml # Bowel Movements 1 Vital Signs Date Time Temp Pulse Resp B/P (MAP) Pulse Ox O2 Delivery O2 Flow Rate FiO2 08/11/17 21:49 132/68 (89) 08/11/17 20:40 Room Air 08/11/17 20:23 98.4 65 18 172/81 (111) 96 08/11/17 16:00 97.6 62 20 120/56 (77) 97 08/11/17 12:00 98.1 64 20 149/71 (97) 98 08/11/17 08:00 97.3 64 18 132/59 (83) 95 Manual Cuff/Auscultation 08/11/17 08:00 Room Air 08/11/17 04:00 97.8 72 22 151/65 (93) 95 08/11/17 04:00 Room Air 08/11/17 00:00 Room Air 08/11/17 00:00 98.4 73 19 151/76 (101) 94 -: 08/10/17 1746 08/11/17 1116 Physical Exam General Appearance: No Acute Distress, Comfortable Eyes Eye Exam: Pupils Equal Throat Throat Exam: Oral Mucosa [place] & Moist Neck Neck Exam: Neck Supple Pulmonary Resp Exam: Breath Sounds Equal, No Distress, Rhonchi, Decreased Bases Cardiology CV Exam: Regular, Normal Sinus Rhythm Gastrointestinal/Abdomen GI Exam: Soft, Non-Tender, Bowel Sounds Present, Non-Distended Extremeties Extremities Exam: Trace Edema Neurologic Neuro Exam: Alert, Awake, Oriented Psychiatric Psych Exam: Appropriate Responses Assessment/Plan Assessment Summary: EUGENE/Acute Renal Failure, Hypertension, CKD Stage IV Problem List: (1) STEMI (ST elevation myocardial infarction) ICD Codes: I21.3 - ST elevation (STEMI) myocardial infarction of unspecified site Status: Acute (2) CAD (coronary artery disease) ICD Codes: I25.10 - Atherosclerotic heart disease of [place] coronary artery without angina pectoris (3) Diabetes ICD Codes: E11.9 - Type 2 diabetes mellitus without complications Status: Chronic (4) Hyperlipidemia ICD Codes: E78.5 - Hyperlipidemia, unspecified (5) Hypertension ICD Codes: I10 - Essential (primary) hypertension Plan Patient remain non oliguric. BP is better. She most likely has chronic kidney disease. Possibly related to Hypertensive or renovascular disease, or Diabetic Nephropathy. Now also has EUGENE, related to Acute [place] and contrast. Started on HD, has last HD on Sat. Urine out put is good. Encourage oral fluid. Once GFR above 15 ml/min., can be discharge. Avoid Nephrotoxins, her creatinine was 1.1 in April 2015. Follow the urine out put and BMP. Creatinine is 3.6-3.8, and the GFR now 12 ml/min. Kidney Biopsy cannot be done as she is on Plavix, and it cannot be stopped due to recent [place]. Once the GFR is 15 or above, can be discharged. Problem Qualifiers (1) STEMI (ST elevation myocardial infarction): Qualified Codes: I21.3 - ST elevation (STEMI) myocardial infarction of unspecified site (2) Diabetes: Qualified Codes: E11.22 - Type 2 diabetes mellitus with diabetic chronic kidney disease (3) Hypertension: Qualified Codes: I10 - Essential (primary) hypertension Adebayo Balderas MD Aug 11, 2017 22:15
[2017-08-12 04:00] VITALS: BP 143/66; PULSE 64; RESP 18; TEMP 97.9; O2SAT 96
[2017-08-12] MEDS: LEVOTHYROXINE SODIUM 50 MCG TAB PO SCH (05:04)
[2017-08-12 08:00] VITALS: BP 155/74; PULSE 65; RESP 20; TEMP 98.2; O2SAT 98
[2017-08-12] MEDS: NICOTINE 14 MG/24 HR PATCH T-DERMAL SCH (09:02)
[2017-08-12] MEDS: hydrALAZINE HCL 50 MG TAB PO SCH ×3 (09:02→17:09)
[2017-08-12] MEDS: CLOPIDOGREL 75 MG TAB PO SCH (09:02)
[2017-08-12] MEDS: ASPIRIN 81 MG CHEW TAB PO SCH (09:02)
[2017-08-12] MEDS: amLODIPine BESYLATE 5 MG TAB PO SCH (09:02)
[2017-08-12] MEDS: INSULIN ASPART SUPPLEMENTAL SCALE SQ SCH ×4 (09:03→21:00)
[2017-08-12] MEDS: METOPROLOL TARTRATE 25 MG TAB PO SCH ×2 (09:07→21:05)
[2017-08-12] MEDS: REMOVE OLD PATCH T-DERMAL SCH (09:10)
--- NOTE | 2017-08-12 10:43 | HHI.PR ---
Subjective Remarks Follow up on patient with EUGENE. Patient seen and examined. Patient denies any complaints. She is wanting to go home. States she is urinating well. Denies any complaints of pain. Denies any f/c/n/v, dyspnea, chest pain or abdominal pain. Objective Vitals Vital Signs Date Time Temp Pulse Resp B/P (MAP) Pulse Ox O2 Delivery O2 Flow Rate FiO2 08/12/17 09:10 Room Air 08/12/17 08:00 98.2 65 20 155/74 (101) 98 08/12/17 04:00 97.9 64 18 143/66 (91) 96 08/12/17 04:00 Room Air 08/12/17 00:00 Room Air 08/11/17 21:49 132/68 (89) 08/11/17 20:40 Room Air 08/11/17 20:23 98.4 65 18 172/81 (111) 96 08/11/17 16:00 97.6 62 20 120/56 (77) 97 08/11/17 12:00 98.1 64 20 149/71 (97) 98 I/O 08/11/17 08/11/17 08/11/17 08/12/17 08/12/17 08/12/17 07:00 15:00 23:00 07:00 15:00 23:00 Intake Total 240 ml 960 ml 367 ml Output Total 1000 ml Balance 240 ml -40 ml 367 ml Intake Oral 240 ml 960 ml IV Total 367 ml Output Urine Total 1000 ml # Voids 4 1 # Bowel Movements 0 1 Result Diagram: 08/10/17 1746 08/11/17 1116 Imaging Last Impressions Catheter Placement X-Ray 07/31/17 0000 Signed Impressions: Service Date/Time: Monday, July 31, 2017 13:41 - CONCLUSION: Uncomplicated line placement as above. Rhett Ray MD Renal Ultrasound 07/28/17 0000 Signed Impressions: Service Date/Time: Friday, July 28, 2017 10:58 - CONCLUSION: 1. The examination is within normal limits. Anatoly Wong MD Chest X-Ray 07/27/17 0000 Signed Impressions: Service Date/Time: Thursday, July 27, 2017 16:13 - CONCLUSION: No acute disease. Rhett Miller MD Objective Remarks GENERAL: Well-nourished, well-developed patient in NAD. Awake and alert. Sitting up in bedside recliner. SKIN: Warm and dry. RIJ Vas cath. HEAD: Normocephalic. Atraumatic. EYES: Pupils equal and round. No scleral icterus. No injection or drainage. ENT: No nasal bleeding or discharge. Mucous membranes pink and moist. NECK: Supple. Trachea midline. CARDIOVASCULAR: Regular rate and rhythm. S1, S2 noted. No murmur appreciated. RESPIRATORY: No accessory muscle use. Clear to auscultation. Breath sounds equal bilaterally. GASTROINTESTINAL: Abdomen soft, non-tender, nondistended. Normoactive bowel sounds x4. MUSCULOSKELETAL: No obvious deformities. Extremities without clubbing, cyanosis , or edema. NEUROLOGICAL: Awake and alert. Able to move all extremities spontaneously. Nonfocal. Normal speech. Procedures cardiac cath Vasc cath placement Medications and IVs Current Medications Medications (Trade) Dose Ordered Sig/Stephan Route Start Time Stop Time Status Last Admin (NS Flush) 2 ml UNSCH PRN IV FLUSH 07/27/17 14:00 08/08/17 21:11 (NS Flush) 2 ml UNSCH PRN IVF 07/27/17 16:00 (Tylenol) 325 mg Q4H PRN PO 07/27/17 18:30 07/28/17 23:06 (Percocet 5-325 Mg) 1 tab Q4H PRN PO 07/27/17 18:30 08/02/17 19:17 (Percocet 10-325 Mg) 1 tab Q4H PRN PO 07/27/17 18:30 (Restoril) 15 mg HS PRN PO 07/27/17 18:30 08/11/17 20:38 (Aspirin Chew) 81 mg DAILY PO 07/28/17 09:00 Future hold 08/12/17 09:02 (Plavix) 75 mg DAILY PO 07/28/17 09:00 Future hold 08/12/17 09:02 (Atropine Inj) 0.5 mg UNSCH PRN IV PUSH 07/27/17 18:30 (Zofran Inj) 4 mg Q4H PRN IV PUSH 07/27/17 18:30 07/28/17 21:25 (Lopressor) 50 mg BID PO 07/27/17 21:00 08/12/17 09:07 Nitroglycerin/ Dextrose 250 ml @ 6 mls/hr TITRATE PRN IV 07/27/17 22:45 07/28/17 18:43 (Lopressor Inj) 5 mg Q1H PRN IV PUSH 07/27/17 22:45 07/28/17 22:26 (Lipitor) 40 mg HS PO 07/28/17 21:00 08/11/17 20:38 (Levemir Inj) 10 units HS SQ 07/28/17 21:00 08/11/17 20:38 (Catapres) 0.1 mg Q4H PRN PO 07/28/17 08:45 08/08/17 18:13 (D50w (Vial) Inj) 50 ml UNSCH PRN IV 07/28/17 08:45 (Glucagon Inj) 1 mg UNSCH PRN OTHER 07/28/17 08:45 (Habitrol 14 Mg Patch.24 Hr) 1 patch DAILY T-DERMAL 07/29/17 09:00 08/12/17 09:02 Miscellaneous Information 1 DAILY T-DERMAL 07/28/17 09:00 08/12/17 09:10 (Compazine Inj) 5 mg Q8H PRN IV PUSH 07/28/17 23:45 (Synthroid) 50 mcg DAILY@0600 PO 07/29/17 13:00 08/12/17 05:04 Sodium Chloride 1,000 ml @ 0 mls/hr Q0M PRN OTHER 07/31/17 11:09 (Heparin Inj) 8,000 units UNSCH PRN IV FLUSH 07/31/17 11:15 Sodium Chloride 1,000 ml @ 200 mls/hr Q5H PRN IV 07/31/17 11:09 08/01/17 11:51 Sodium Chloride 1,000 ml @ 0 mls/hr Q0M PRN OTHER 07/31/17 11:09 (Mannitol Inj) 12.5 gm UNSCH PRN IV 07/31/17 11:15 (Albumin 25% Inj) 25 gm UNSCH PRN IV 07/31/17 11:15 (NS Flush) 5 ml UNSCH PRN IV FLUSH 07/31/17 11:15 (Heparin Inj) UNSCH PRN .XX 07/31/17 11:15 08/01/17 11:51 (Gentamicin (Dialysis) Inj) 20 mg UNSCH PRN OTHER 07/31/17 11:15 08/01/17 11:51 (Zofran Inj) 4 mg UNSCH PRN IV PUSH 07/31/17 11:15 07/31/17 15:20 (Tylenol) 650 mg UNSCH PRN PO 07/31/17 11:15 (Benadryl) 25 mg UNSCH PRN PO 07/31/17 11:15 (Nitrostat Sl) 0.4 mg UNSCH PRN SL 07/31/17 11:15 (Catapres) 0.1 mg UNSCH PRN PO 07/31/17 11:15 (Epogen Inj) 4,000 units UNSCH PRN IV 07/31/17 12:15 (Gelfoam 12 Mm/7 Mm Top) 1 foam UNSCH PRN TOP 07/31/17 11:15 (NS Flush) UNSCH PRN IVF 07/31/17 15:45 (Heparin Inj) UNSCH PRN IV FLUSH 07/31/17 15:45 (Senokot) 17.2 mg Q12H PRN PO 08/01/17 14:15 (Dulcolax Supp) 10 mg DAILY PRN RECTAL 08/01/17 14:15 (Lactulose Liq) 30 ml DAILY PRN PO 08/01/17 14:15 (Norvasc) 10 mg DAILY PO 08/05/17 09:00 08/12/17 09:02 (Apresoline) 100 mg TID PO 08/06/17 13:00 08/12/17 09:02 (NovoLOG SUPPLEMENTAL SCALE) 1 ACHS SLIDING SCALE SQ 08/07/17 08:00 08/11/17 20:39 (Vistaril) 25 mg Q6H PRN PO 08/07/17 13:45 08/11/17 20:37 Side: Right Location: Internal, Jugular A/P Problem List: (1) Alcohol abuse ICD Code: F10.10 - Alcohol abuse, uncomplicated (2) CAD (coronary artery disease) ICD Code: I25.10 - Atherosclerotic heart disease of [place] coronary artery without angina pectoris (3) Hypertension ICD Code: I10 - Essential (primary) hypertension (4) Tobacco abuse ICD Code: Z72.0 - Tobacco use (5) Hyperlipidemia ICD Code: E78.5 - Hyperlipidemia, unspecified (6) Diabetes ICD Code: E11.9 - Type 2 diabetes mellitus without complications Status: Chronic (7) STEMI (ST elevation myocardial infarction) ICD Code: I21.3 - ST elevation (STEMI) myocardial infarction of unspecified site Status: Acute Assessment and Plan 52-year-old female admitted for: Acute myocardial infarction. Status post cardiac catheterization with stent to the proximal LAD -Stable. Continue aspirin, Plavix, Lopressor, Norvasc, and statin. Unable to start JOSE ROBERTO inhibitor secondary to acute kidney injury Acute on chronic kidney disease: Likely related to [place] and contrast. - Nephrology following. Patient required dialysis last session 08/03/17. Renal function is still depressed but stable. Continue gentle IV hydration. - Renal bx cancelled due to patient on Plavix and ASA. - Per renal, okay for discharge if GFR over 15 - Continue to monitor kidney fxn. Today's labs pending. Diabetes mellitus: Untreated. Hemoglobin A1c 7.3 - Continue on Levemir 10 units daily - Continue sliding scale insulin with Accu-Cheks. BS 121 this am. - Diabetes education Hypertension: Continue Norvasc and hydralazine. - Continue to monitor Hyperlipidemia: continue on statin Hypothyroidism - Continue levothyroxine 50 mcg daily - Patient will need a follow-up with PCP as outpatient to have TSH rechecked in 6-8 weeks. Smoking and alcohol cessation discussed with the patient. - Continue nicotine patch Discussed with patient and Dr. Peng Discharge Planning Pending clinical course and nephrology clearance Problem Qualifiers (1) Hypertension: Qualified Codes: I10 - Essential (primary) hypertension (2) Diabetes: Qualified Codes: E11.22 - Type 2 diabetes mellitus with diabetic chronic kidney disease (3) STEMI (ST elevation myocardial infarction): Qualified Codes: I21.3 - ST elevation (STEMI) myocardial infarction of unspecified site Carolin Becerra Aug 12, 2017 10:43
[2017-08-12 10:44] LABS: BICARBONATE 20.9 MEQ/L (21.0-32.0); MAGNESIUM 1.6 MG/DL (1.5-2.5); POTASSIUM 4.6 MEQ/L (3.5-5.1)
[2017-08-12 12:00] VITALS: BP 142/70; PULSE 60; RESP 18; TEMP 98.1; O2SAT 98
[2017-08-12] MEDS ORDERED: SODIUM CHLOR 0.9% 1000 ML INJ 1,000 ML IV SCH (12:45)
[2017-08-12 16:00] VITALS: BP 147/71; PULSE 62; RESP 20; TEMP 98; O2SAT 97
--- NOTE | 2017-08-12 16:36 | HHI.NPPN ---
Subjective History of Present Illness 52-year-old female with past medical history of diabetes mellitus for the last more than 20 years, history of hypertension and history of chronic kidney disease, came to the hospital with complaint of chest pain and shortness of breath. I was called to see the patient because of elevated BUN and creatinine. Additional Remarks Patient is alert, not in distress, eating well, no complain. Review of Systems Respiratory Lungs: SOB, Wheeze Cardiovascular Cardiac: Chest Pain, Edema, PENNY Objective Data Data Vital Signs Date Time Temp Pulse Resp B/P (MAP) Pulse Ox O2 Delivery O2 Flow Rate FiO2 08/12/17 12:00 98.1 60 18 142/70 (94) 98 08/12/17 09:10 Room Air 08/12/17 08:00 98.2 65 20 155/74 (101) 98 08/12/17 04:00 97.9 64 18 143/66 (91) 96 08/12/17 04:00 Room Air 08/12/17 00:00 Room Air 08/11/17 21:49 132/68 (89) 08/11/17 20:40 Room Air 08/11/17 20:23 98.4 65 18 172/81 (111) 96 -: 08/10/17 1746 08/12/17 0730 Physical Exam General Appearance: No Acute Distress, Comfortable Eyes Eye Exam: Pupils Equal Throat Throat Exam: Oral Mucosa [place] & Moist Neck Neck Exam: Neck Supple Pulmonary Resp Exam: Breath Sounds Equal, No Distress, Rhonchi, Decreased Bases Cardiology CV Exam: Regular, Normal Sinus Rhythm Gastrointestinal/Abdomen GI Exam: Soft, Non-Tender, Bowel Sounds Present, Non-Distended Extremeties Extremities Exam: Trace Edema Neurologic Neuro Exam: Alert, Awake, Oriented Psychiatric Psych Exam: Appropriate Responses Assessment/Plan Assessment Summary: EUGENE/Acute Renal Failure, Hypertension, CKD Stage IV Problem List: (1) STEMI (ST elevation myocardial infarction) ICD Codes: I21.3 - ST elevation (STEMI) myocardial infarction of unspecified site Status: Acute (2) CAD (coronary artery disease) ICD Codes: I25.10 - Atherosclerotic heart disease of [place] coronary artery without angina pectoris (3) Diabetes ICD Codes: E11.9 - Type 2 diabetes mellitus without complications Status: Chronic (4) Hyperlipidemia ICD Codes: E78.5 - Hyperlipidemia, unspecified (5) Hypertension ICD Codes: I10 - Essential (primary) hypertension Plan Patient remain non oliguric. BP is better. She most likely has chronic kidney disease. Possibly related to Hypertensive or renovascular disease, or Diabetic Nephropathy. Now also has EUGENE, related to Acute [place] and contrast. Started on HD, has last HD on Sat. Urine out put is good. Encourage oral fluid. Once GFR above 15 ml/min., can be discharge. Avoid Nephrotoxins, her creatinine was 1.1 in April 2015. Follow the urine out put and BMP. Creatinine is 3.6-3.8, and the GFR now 12 ml/min. Kidney Biopsy cannot be done as she is on Plavix, and it cannot be stopped due to recent [place]. D/W Dr. Peng yesterday, awaiting some improvement in the renal function. HD has been on hold. Problem Qualifiers (1) STEMI (ST elevation myocardial infarction): Qualified Codes: I21.3 - ST elevation (STEMI) myocardial infarction of unspecified site (2) Diabetes: Qualified Codes: E11.22 - Type 2 diabetes mellitus with diabetic chronic kidney disease (3) Hypertension: Qualified Codes: I10 - Essential (primary) hypertension Adebayo Balderas MD Aug 12, 2017 16:36
[2017-08-12 20:00] VITALS: BP 152/67; PULSE 70; RESP 20; TEMP 98; O2SAT 96
[2017-08-12] MEDS: ATORVASTATIN 40 MG TAB PO SCH (21:05)
[2017-08-12] MEDS: INSULIN DETEMIR 100 UNITS/ML VIAL SQ SCH (21:05)
[2017-08-12] MEDS: TEMAZEPAM 15 MG CAP PO PRN (21:08)
[2017-08-13] VITALS: BP 143/64; PULSE 72; RESP 20; TEMP 98.2; O2SAT 96
[2017-08-13 04:00] VITALS: BP 149/67; PULSE 70; RESP 20; TEMP 98.2; O2SAT 94
[2017-08-13] MEDS: LEVOTHYROXINE SODIUM 50 MCG TAB PO SCH (04:59)
[2017-08-13 08:00] VITALS: BP 158/73; PULSE 64; RESP 16; TEMP 98.4; O2SAT 96
[2017-08-13] MEDS: hydrALAZINE HCL 50 MG TAB PO SCH ×3 (08:22→18:27)
[2017-08-13] MEDS: CLOPIDOGREL 75 MG TAB PO SCH (08:22)
[2017-08-13] MEDS: REMOVE OLD PATCH T-DERMAL SCH (08:22)
[2017-08-13] MEDS: ASPIRIN 81 MG CHEW TAB PO SCH (08:22)
[2017-08-13] MEDS: NICOTINE 14 MG/24 HR PATCH T-DERMAL SCH (08:22)
[2017-08-13] MEDS: amLODIPine BESYLATE 5 MG TAB PO SCH (08:22)
[2017-08-13] MEDS: INSULIN ASPART SUPPLEMENTAL SCALE SQ SCH ×4 (08:23→21:00)
--- NOTE | 2017-08-13 11:16 | HHI.PR ---
Subjective Remarks Follow up on patient with EUGENE. Patient seen and examined. Patients only complaint is she wants to go home. She is very frustrated nothing in the hospital for an extended length of time. She states that she is "in the dark". She reports she is urinating well. States she had some edema in the right lower extremity at the end of the day yesterday but has since resolved. Admits that she was sitting up for a large part of the day with her legs dependent. She denies any fever or chills. Denies any chest pain or shortness of breath. Denies any nausea vomiting or abdominal pain. States she's had 2 normal bowel movements 1 last night and this morning. Admits that she ate [employer] for dinner last night as well as had a diet soda. Objective Vitals Vital Signs Date Time Temp Pulse Resp B/P (MAP) Pulse Ox O2 Delivery O2 Flow Rate FiO2 08/13/17 08:00 98.4 64 16 158/73 (101) 96 08/13/17 04:00 98.2 70 20 149/67 (94) 94 08/13/17 00:00 Room Air 08/13/17 00:00 Room Air 08/13/17 00:00 98.2 72 20 143/64 (90) 96 08/12/17 20:00 98.0 70 20 152/67 (95) 96 08/12/17 20:00 Room Air 08/12/17 16:00 98.0 62 20 147/71 (96) 97 08/12/17 12:00 98.1 60 18 142/70 (94) 98 I/O 08/12/17 08/12/17 08/12/17 08/13/17 08/13/17 08/13/17 07:00 15:00 23:00 07:00 15:00 23:00 Intake Total 367 ml 1844 ml 320 ml Output Total 500 ml 350 ml Balance 367 ml 1344 ml -30 ml Intake Oral 1380 ml 320 ml IV Total 367 ml 464 ml Output Urine Total 500 ml 350 ml # Voids 1 4 # Bowel Movements 1 0 Result Diagram: 08/10/17 1746 08/12/17 0730 Imaging Last Impressions Catheter Placement X-Ray 07/31/17 0000 Signed Impressions: Service Date/Time: Monday, July 31, 2017 13:41 - CONCLUSION: Uncomplicated line placement as above. Rhett Ray MD Renal Ultrasound 07/28/17 0000 Signed Impressions: Service Date/Time: Friday, July 28, 2017 10:58 - CONCLUSION: 1. The examination is within normal limits. Anatoly Wong MD Chest X-Ray 07/27/17 0000 Signed Impressions: Service Date/Time: Thursday, July 27, 2017 16:13 - CONCLUSION: No acute disease. Rhett Miller MD Objective Remarks GENERAL: Well-nourished, well-developed patient in NAD. Sitting up in bedside recliner. Awake and alert. Appears comfortable. SKIN: Warm and dry. RIJ Vas cath. HEAD: Normocephalic. Atraumatic. EYES: EOMI. No scleral icterus. No injection or drainage. ENT: No nasal bleeding or discharge. Mucous membranes pink and moist. NECK: Supple. Trachea midline. CARDIOVASCULAR: Regular rate and rhythm. S1, S2 noted. No murmur appreciated. RESPIRATORY: No accessory muscle use. Clear to auscultation. Breath sounds equal bilaterally. GASTROINTESTINAL: Abdomen soft, non-tender, nondistended. Normoactive bowel sounds x4. MUSCULOSKELETAL: No obvious deformities. Extremities without clubbing or cyanosis. Trace edema RLE. Bilateral calves supple and nontender. NEUROLOGICAL: Awake and alert. Able to move all extremities spontaneously. Nonfocal. Normal speech. Procedures cardiac cath Vasc cath placement Medications and IVs Current Medications Medications (Trade) Dose Ordered Sig/Stephan Route Start Time Stop Time Status Last Admin (NS Flush) 2 ml UNSCH PRN IV FLUSH 07/27/17 14:00 08/08/17 21:11 (NS Flush) 2 ml UNSCH PRN IVF 07/27/17 16:00 (Tylenol) 325 mg Q4H PRN PO 07/27/17 18:30 07/28/17 23:06 (Percocet 5-325 Mg) 1 tab Q4H PRN PO 07/27/17 18:30 08/02/17 19:17 (Percocet 10-325 Mg) 1 tab Q4H PRN PO 07/27/17 18:30 (Restoril) 15 mg HS PRN PO 07/27/17 18:30 08/12/17 21:08 (Aspirin Chew) 81 mg DAILY PO 07/28/17 09:00 Future hold 08/13/17 08:22 (Plavix) 75 mg DAILY PO 07/28/17 09:00 Future hold 08/13/17 08:22 (Atropine Inj) 0.5 mg UNSCH PRN IV PUSH 07/27/17 18:30 (Zofran Inj) 4 mg Q4H PRN IV PUSH 07/27/17 18:30 07/28/17 21:25 (Lopressor) 50 mg BID PO 07/27/17 21:00 08/12/17 21:05 Nitroglycerin/ Dextrose 250 ml @ 6 mls/hr TITRATE PRN IV 07/27/17 22:45 07/28/17 18:43 (Lopressor Inj) 5 mg Q1H PRN IV PUSH 07/27/17 22:45 07/28/17 22:26 (Lipitor) 40 mg HS PO 07/28/17 21:00 08/12/17 21:05 (Levemir Inj) 10 units HS SQ 07/28/17 21:00 08/12/17 21:05 (Catapres) 0.1 mg Q4H PRN PO 07/28/17 08:45 08/08/17 18:13 (D50w (Vial) Inj) 50 ml UNSCH PRN IV 07/28/17 08:45 (Glucagon Inj) 1 mg UNSCH PRN OTHER 07/28/17 08:45 (Habitrol 14 Mg Patch.24 Hr) 1 patch DAILY T-DERMAL 07/29/17 09:00 08/13/17 08:22 Miscellaneous Information 1 DAILY T-DERMAL 07/28/17 09:00 08/13/17 08:22 (Compazine Inj) 5 mg Q8H PRN IV PUSH 07/28/17 23:45 (Synthroid) 50 mcg DAILY@0600 PO 07/29/17 13:00 08/13/17 04:59 Sodium Chloride 1,000 ml @ 0 mls/hr Q0M PRN OTHER 07/31/17 11:09 (Heparin Inj) 8,000 units UNSCH PRN IV FLUSH 07/31/17 11:15 Sodium Chloride 1,000 ml @ 200 mls/hr Q5H PRN IV 07/31/17 11:09 08/01/17 11:51 Sodium Chloride 1,000 ml @ 0 mls/hr Q0M PRN OTHER 07/31/17 11:09 (Mannitol Inj) 12.5 gm UNSCH PRN IV 07/31/17 11:15 (Albumin 25% Inj) 25 gm UNSCH PRN IV 07/31/17 11:15 (NS Flush) 5 ml UNSCH PRN IV FLUSH 07/31/17 11:15 (Heparin Inj) UNSCH PRN .XX 07/31/17 11:15 08/01/17 11:51 (Gentamicin (Dialysis) Inj) 20 mg UNSCH PRN OTHER 07/31/17 11:15 08/01/17 11:51 (Zofran Inj) 4 mg UNSCH PRN IV PUSH 07/31/17 11:15 07/31/17 15:20 (Tylenol) 650 mg UNSCH PRN PO 07/31/17 11:15 (Benadryl) 25 mg UNSCH PRN PO 07/31/17 11:15 (Nitrostat Sl) 0.4 mg UNSCH PRN SL 07/31/17 11:15 (Catapres) 0.1 mg UNSCH PRN PO 07/31/17 11:15 (Epogen Inj) 4,000 units UNSCH PRN IV 07/31/17 12:15 (Gelfoam 12 Mm/7 Mm Top) 1 foam UNSCH PRN TOP 07/31/17 11:15 (NS Flush) UNSCH PRN IVF 07/31/17 15:45 (Heparin Inj) UNSCH PRN IV FLUSH 07/31/17 15:45 (Senokot) 17.2 mg Q12H PRN PO 08/01/17 14:15 (Dulcolax Supp) 10 mg DAILY PRN RECTAL 08/01/17 14:15 (Lactulose Liq) 30 ml DAILY PRN PO 08/01/17 14:15 (Norvasc) 10 mg DAILY PO 08/05/17 09:00 08/13/17 08:22 (Apresoline) 100 mg TID PO 08/06/17 13:00 08/13/17 08:22 (NovoLOG SUPPLEMENTAL SCALE) 1 ACHS SLIDING SCALE SQ 08/07/17 08:00 08/12/17 18:20 (Vistaril) 25 mg Q6H PRN PO 08/07/17 13:45 08/11/17 20:37 Sodium Chloride 1,000 ml @ 42 mls/hr [id number] IV 08/12/17 12:45 08/13/17 12:33 08/12/17 17:09 Side: Right Location: Internal, Jugular A/P Problem List: (1) Alcohol abuse ICD Code: F10.10 - Alcohol abuse, uncomplicated (2) CAD (coronary artery disease) ICD Code: I25.10 - Atherosclerotic heart disease of [place] coronary artery without angina pectoris (3) Hypertension ICD Code: I10 - Essential (primary) hypertension (4) Tobacco abuse ICD Code: Z72.0 - Tobacco use (5) Hyperlipidemia ICD Code: E78.5 - Hyperlipidemia, unspecified (6) Diabetes ICD Code: E11.9 - Type 2 diabetes mellitus without complications Status: Chronic (7) STEMI (ST elevation myocardial infarction) ICD Code: I21.3 - ST elevation (STEMI) myocardial infarction of unspecified site Status: Acute Assessment and Plan 52-year-old female admitted for: Acute myocardial infarction. Status post cardiac catheterization with stent to the proximal LAD -Stable. Continue aspirin, Plavix, Lopressor, Norvasc, and statin. Unable to start JOSE ROBERTO inhibitor secondary to acute kidney injury Acute on chronic kidney disease: Likely related to [place] and contrast. - Nephrology following. Patient required dialysis last session 08/03/17. Renal function is still depressed but stable. Continue gentle IV hydration. - Renal bx cancelled due to patient on Plavix and ASA. - Per renal, okay for discharge if GFR over 15 - Continue to monitor kidney fxn. Patients GFR has remained at 12. Creatinine did improve some from 4.09 to 3.91. Today's labs not yet drawn. Diabetes mellitus: Untreated. Hemoglobin A1c 7.3 - Continue on Levemir 10 units daily - Continue sliding scale insulin with Accu-Cheks. BS 149 this am. - Diabetes education - Patient counseled on making better food choices. Discouraged fast food consumption. Hypertension: Continue Norvasc and hydralazine. - Continue to monitor Hyperlipidemia: continue on statin Hypothyroidism - Continue levothyroxine 50 mcg daily - Patient will need a follow-up with PCP as outpatient to have TSH rechecked in 6-8 weeks. Smoking and alcohol cessation discussed with the patient. - Continue nicotine patch Discussed with patient and Dr. Peng Discharge Planning Pending clinical course and nephrology clearance Problem Qualifiers (1) Hypertension: Qualified Codes: I10 - Essential (primary) hypertension (2) Diabetes: Qualified Codes: E11.22 - Type 2 diabetes mellitus with diabetic chronic kidney disease (3) STEMI (ST elevation myocardial infarction): Qualified Codes: I21.3 - ST elevation (STEMI) myocardial infarction of unspecified site Carolin Becerra Aug 13, 2017 11:16
[2017-08-13 12:00] VITALS: BP 161/79; PULSE 72; RESP 20; TEMP 97.3; O2SAT 97
[2017-08-13 12:59] LABS: BICARBONATE 19.3 MEQ/L (21.0-32.0); MAGNESIUM 1.6 MG/DL (1.5-2.5); POTASSIUM 4.8 MEQ/L (3.5-5.1)
[2017-08-13] MEDS: METOPROLOL TARTRATE 25 MG TAB PO SCH ×2 (13:32→21:29)
[2017-08-13 16:00] VITALS: BP 152/73; PULSE 63; RESP 20; TEMP 98; O2SAT 97
--- NOTE | 2017-08-13 16:50 | HHI.NPPN ---
Subjective History of Present Illness 52-year-old female with past medical history of diabetes mellitus for the last more than 20 years, history of hypertension and history of chronic kidney disease, came to the hospital with complaint of chest pain and shortness of breath. I was called to see the patient because of elevated BUN and creatinine. Additional Remarks Patient is alert, not in distress, eating well, no complain. Review of Systems Respiratory Lungs: SOB, Wheeze Cardiovascular Cardiac: Chest Pain, Edema, PENNY Objective Data Data 08/13/17 08/14/17 19:00 07:00 Intake Total 948 ml Balance 948 ml IV Total 948 ml Vital Signs Date Time Temp Pulse Resp B/P (MAP) Pulse Ox O2 Delivery O2 Flow Rate FiO2 08/13/17 12:00 97.3 72 20 161/79 (106) 97 08/13/17 08:28 Room Air 08/13/17 08:00 98.4 64 16 158/73 (101) 96 08/13/17 04:00 98.2 70 20 149/67 (94) 94 08/13/17 00:00 Room Air 08/13/17 00:00 Room Air 08/13/17 00:00 98.2 72 20 143/64 (90) 96 08/12/17 20:00 98.0 70 20 152/67 (95) 96 08/12/17 20:00 Room Air -: 08/10/17 1746 08/13/17 1100 Physical Exam General Appearance: No Acute Distress, Comfortable Eyes Eye Exam: Pupils Equal Throat Throat Exam: Oral Mucosa [place] & Moist Neck Neck Exam: Neck Supple Pulmonary Resp Exam: Breath Sounds Equal, No Distress, Rhonchi, Decreased Bases Cardiology CV Exam: Regular, Normal Sinus Rhythm Gastrointestinal/Abdomen GI Exam: Soft, Non-Tender, Bowel Sounds Present, Non-Distended Extremeties Extremities Exam: Trace Edema Neurologic Neuro Exam: Alert, Awake, Oriented Psychiatric Psych Exam: Appropriate Responses Assessment/Plan Assessment Summary: EUGENE/Acute Renal Failure, Hypertension, CKD Stage IV Problem List: (1) STEMI (ST elevation myocardial infarction) ICD Codes: I21.3 - ST elevation (STEMI) myocardial infarction of unspecified site Status: Acute (2) CAD (coronary artery disease) ICD Codes: I25.10 - Atherosclerotic heart disease of [place] coronary artery without angina pectoris (3) Diabetes ICD Codes: E11.9 - Type 2 diabetes mellitus without complications Status: Chronic (4) Hyperlipidemia ICD Codes: E78.5 - Hyperlipidemia, unspecified (5) Hypertension ICD Codes: I10 - Essential (primary) hypertension Plan Patient remain non oliguric. BP is better. She most likely has chronic kidney disease. Possibly related to Hypertensive or renovascular disease, or Diabetic Nephropathy. Now also has EUGENE, related to Acute NH and contrast. Started on HD, has last HD on Sat. Urine out put is good. Encourage oral fluid. Once GFR above 15 ml/min., can be discharge. Avoid Nephrotoxins, her creatinine was 1.1 in April 2015. Follow the urine out put and BMP. Creatinine is 3.6-3.8, and the GFR now 12 ml/min. Kidney Biopsy cannot be done as she is on Plavix, and it cannot be stopped due to recent NH. Awaiting some improvement in the renal function. HD has been on hold. D/W manager revenue to see if can get out patient labs and be [facility]. Problem Qualifiers (1) STEMI (ST elevation myocardial infarction): Qualified Codes: I21.3 - ST elevation (STEMI) myocardial infarction of unspecified site (2) Diabetes: Qualified Codes: E11.22 - Type 2 diabetes mellitus with diabetic chronic kidney disease (3) Hypertension: Qualified Codes: I10 - Essential (primary) hypertension Adebayo Balderas MD Aug 13, 2017 16:50
[2017-08-13 20:00] VITALS: BP 163/80; PULSE 70; RESP 16; TEMP 98; O2SAT 98
[2017-08-13] MEDS: ATORVASTATIN 40 MG TAB PO SCH (21:29)
[2017-08-13] MEDS: INSULIN DETEMIR 100 UNITS/ML VIAL SQ SCH (21:30)
[2017-08-13] MEDS: TEMAZEPAM 15 MG CAP PO PRN (22:09)
[2017-08-14 04:00] VITALS: BP 164/70; PULSE 63; RESP 18; TEMP 97.2; O2SAT 97
[2017-08-14] MEDS: LEVOTHYROXINE SODIUM 50 MCG TAB PO SCH (05:34)
[2017-08-14] MEDS: INSULIN ASPART SUPPLEMENTAL SCALE SQ SCH (08:00)
[2017-08-14 08:01] VITALS: BP 147/67; PULSE 64; RESP 20; TEMP 97.8; O2SAT 96
[2017-08-14] MEDS: METOPROLOL TARTRATE 25 MG TAB PO SCH (08:35)
[2017-08-14] MEDS: CLOPIDOGREL 75 MG TAB PO SCH (08:35)
[2017-08-14] MEDS: REMOVE OLD PATCH T-DERMAL SCH (08:35)
[2017-08-14] MEDS: NICOTINE 14 MG/24 HR PATCH T-DERMAL SCH (08:35)
[2017-08-14] MEDS: amLODIPine BESYLATE 5 MG TAB PO SCH (08:35)
[2017-08-14] MEDS: ASPIRIN 81 MG CHEW TAB PO SCH (08:35)
[2017-08-14] MEDS: hydrALAZINE HCL 50 MG TAB PO SCH (08:35)
[2017-08-14 08:40] LABS: BICARBONATE 22.6 MEQ/L (21.0-32.0); MAGNESIUM 1.7 MG/DL (1.5-2.5); POTASSIUM 4.3 MEQ/L (3.5-5.1)
--- NOTE | 2017-08-14 10:08 | HHI.NPPN ---
Subjective History of Present Illness 52-year-old female with past medical history of diabetes mellitus for the last more than 20 years, history of hypertension and history of chronic kidney disease, came to the hospital with complaint of chest pain and shortness of breath. I was called to see the patient because of elevated BUN and creatinine. Additional Remarks Patient is alert, sitting on the chair, no complain, no SOB, eating well. Review of Systems Respiratory Lungs: SOB, Wheeze Cardiovascular Cardiac: Chest Pain, Edema, PENNY Objective Data Data Vital Signs Date Time Temp Pulse Resp B/P (MAP) Pulse Ox O2 Delivery O2 Flow Rate FiO2 08/14/17 04:00 97.2 63 18 164/70 (101) 97 08/13/17 20:00 98.0 70 16 163/80 (107) 98 08/13/17 19:00 97 Room Air 08/13/17 16:00 98.0 63 20 152/73 (99) 97 08/13/17 12:00 97.3 72 20 161/79 (106) 97 -: 08/10/17 1746 08/14/17 0659 Physical Exam General Appearance: No Acute Distress, Comfortable Eyes Eye Exam: Pupils Equal Throat Throat Exam: Oral Mucosa [place] & Moist Neck Neck Exam: Neck Supple Pulmonary Resp Exam: Breath Sounds Equal, No Distress, Rhonchi, Decreased Bases Cardiology CV Exam: Regular, Normal Sinus Rhythm Gastrointestinal/Abdomen GI Exam: Soft, Non-Tender, Bowel Sounds Present, Non-Distended Extremeties Extremities Exam: Trace Edema Neurologic Neuro Exam: Alert, Awake, Oriented Psychiatric Psych Exam: Appropriate Responses Assessment/Plan Assessment Summary: EUGENE/Acute Renal Failure, Hypertension, CKD Stage IV Problem List: (1) STEMI (ST elevation myocardial infarction) ICD Codes: I21.3 - ST elevation (STEMI) myocardial infarction of unspecified site Status: Acute (2) CAD (coronary artery disease) ICD Codes: I25.10 - Atherosclerotic heart disease of [place] coronary artery without angina pectoris (3) Diabetes ICD Codes: E11.9 - Type 2 diabetes mellitus without complications Status: Chronic (4) Hyperlipidemia ICD Codes: E78.5 - Hyperlipidemia, unspecified (5) Hypertension ICD Codes: I10 - Essential (primary) hypertension Plan Patient remain non oliguric. BP is better. She most likely has chronic kidney disease. Possibly related to Hypertensive or renovascular disease, or Diabetic Nephropathy. Now also has EUGENE, related to Acute AR and contrast. Started on HD, has last HD on Sat. Urine out put is good. Encourage oral fluid. Once GFR above 15 ml/min., can be discharge. Avoid Nephrotoxins, her creatinine was 1.1 in April 2015. Follow the urine out put and BMP. Creatinine is 3.6-3.8, and the GFR now 12 ml/min. Kidney Biopsy cannot be done as she is on Plavix, and it cannot be stopped due to recent AR. GFR remain 12 ml/min. has been non oliguric and K is normal. Can be discharged but will need diet restriction, less salt and K in diet, explained to the patient D/C Sergey. BMP twice a week until GFR above 15 ml/min, then once a week or less. To [facility] and can refer to me if needed. Problem Qualifiers (1) STEMI (ST elevation myocardial infarction): Qualified Codes: I21.3 - ST elevation (STEMI) myocardial infarction of unspecified site (2) Diabetes: Qualified Codes: E11.22 - Type 2 diabetes mellitus with diabetic chronic kidney disease (3) Hypertension: Qualified Codes: I10 - Essential (primary) hypertension Adebayo Balderas MD Aug 14, 2017 10:08
[2017-08-14] MEDS ORDERED: LEVEMIR SQ (11:00)
[2017-08-14] MEDS ORDERED: AMLO10TA2 PO (11:00)
[2017-08-14] MEDS ORDERED: PLAV75TA29 PO (11:00)
[2017-08-14] MEDS ORDERED: NITR0.4S SL (11:00)
[2017-08-14] MEDS ORDERED: LEVO.05 PO (11:00)
[2017-08-14] MEDS ORDERED: ATOR40TA16 PO (11:00)
[2017-08-14] MEDS ORDERED: HYDR-3800 PO (11:00)
[2017-08-14] MEDS ORDERED: ASPI81CH25 PO (11:00)
[2017-08-14] MEDS ORDERED: PEN29MIS SQ (11:00)
[2017-08-14] MEDS ORDERED: [UNRECOGNIZED DRUG - CODE] (11:00)
[2017-08-14] MEDS ORDERED: METO50TA PO (11:00)
[2017-08-14] MEDS ORDERED: BLOOD GLUCOSE M1 KIT (11:01)
[2017-08-14] MEDS ORDERED: BMP (11:11)
--- NOTE | 2017-08-14 11:18 | HHI.DCPOC ---
Discharge Care Plan Diagnosis: (1) Diabetes (2) CAD (coronary artery disease) (3) EUGENE (acute kidney injury) (4) Hyperlipidemia (5) Hypertension (6) STEMI (ST elevation myocardial infarction) (7) Hypothyroidism (8) Tobacco abuse (9) Renal failure (ARF), acute on chronic (10) Myocardial infarction acute Goals to Promote Your Health * To prevent worsening of your condition and complications * To maintain your health at the optimal level Directions to Meet Your Goals Please maintain a diabetic heart healthy renal diet low in salt and potassium Please quit smoking Please refrain from drinking alcohol High protein foods to avoid Protein is an essential part of our body. After broken down, it will produce many nitrogenous waste. Once you have chronic kidney disease, your kidneys are damaged with kidney dysfunction. The damaged kidneys cannot remove these wastes away. High protein intake will increase the buildup of these wastes in the blood. As we all know that meat, fish, dairy product are high protein food. The suggested protein intake is 0.75 grams per kilogram of body weight for stage 1, 2 and 3 chronic kidney disease. High phosphorous foods to avoid Phosphorous is an important mineral in body. But overmuch phosphorous will lower the amount of calcium, which will lead to osteoporosis and bone fracture. High phosphorous foods include bran, sunflower seeds,cheese, sesame butter, nuts ,roasted soybeans and so on. Some low phosphorous food like apple, cucumber, grapes and green beans are recommended. High sodium foods to avoid Too much sodium in blood will increase sodium-water retention thus aggravate edema or high blood pressure. You should avoid restaurant food,canned food, processed food and dry food, sausage and so on. High potassium foods to avoid Normal potassium level can keep heart health. Too much potassium can lead to abnormal heart rhythm which is dangerous to life. So you should avoid high potassium food, like banana, strawberry, milk, corn, kelp and so on. Proper diet is important to keep kidney health at least delay the progression of kidney diseases. So you should keep in mind these foods to avoid with chronic kidney disease. For more detailed food list for yourself, you can refer a table list or you can leave a message below, we will reply as soon as possible. Take your medications as prescribed Follow your dietary instruction Follow activity as directed Keep your appointments as scheduled Take your immunizations and boosters as scheduled If your symptoms worsen call your PCP, if no PCP go to Urgent Care Center or Emergency Room Smoking is Dangerous to Your Health. Avoid second hand smoke Call the 24-hour hour crisis hotline for domestic abuse at Carolin Becerra Aug 14, 2017 11:18
--- NOTE | 2017-08-14 11:20 | HHI.DS ---
Discharge Summary Admission Date Jul 27, 2017 at 16:33 Discharge Date: Aug 14, 2017 Admitting Diagnosis STEMI (1) STEMI (ST elevation myocardial infarction) ICD Code: I21.3 - ST elevation (STEMI) myocardial infarction of unspecified site Status: Acute (2) CAD (coronary artery disease) ICD Code: I25.10 - Atherosclerotic heart disease of [place] coronary artery without angina pectoris (3) Renal failure (ARF), acute on chronic ICD Code: N17.9 - Acute kidney failure, unspecified; N18.9 - Chronic kidney disease, unspecified (4) EUGENE (acute kidney injury) ICD Code: N17.9 - Acute kidney failure, unspecified (5) Diabetes ICD Code: E11.9 - Type 2 diabetes mellitus without complications Status: Chronic (6) Hypertension ICD Code: I10 - Essential (primary) hypertension (7) Hyperlipidemia ICD Code: E78.5 - Hyperlipidemia, unspecified (8) Hypothyroidism ICD Code: E03.9 - Hypothyroidism, unspecified (9) Alcohol abuse ICD Code: F10.10 - Alcohol abuse, uncomplicated (10) Tobacco abuse ICD Code: Z72.0 - Tobacco use Procedures cardiac cath Vasc cath placement Brief History - From Admission This is a 52-year-old female who presents to the emergency department having had onset of severe nausea and vomiting 11 PM last night associated with pain and discomfort in her chest and epigastrium, constant, moderate severity, nonradiating. The patient denies headache. She denies fevers or chills. She' s never had symptoms like this before. She says she was vomiting this morning when she woke up and dry heaving. Patient states she has not seen a physician at home and does not take any medications at home CBC/BMP: 08/10/17 1746 08/14/17 0659 Significant Findings Laboratory Tests Test 08/12/17 07:30 08/13/17 11:00 08/14/17 06:59 Blood Urea Nitrogen 56 MG/DL (7-18) 60 MG/DL (7-18) 54 MG/DL (7-18) Creatinine 3.91 MG/DL (0.50-1.00) 4.01 MG/DL (0.50-1.00) 3.83 MG/DL (0.50-1.00) Random Glucose 116 MG/DL (74-106) 211 MG/DL (74-106) Chloride Level 110 MEQ/L (98-107) 110 MEQ/L (98-107) 110 MEQ/L (98-107) Carbon Dioxide Level 20.9 MEQ/L (21.0-32.0) 19.3 MEQ/L (21.0-32.0) Estimat Glomerular Filtration Rate 12 ML/MIN (>89) 12 ML/MIN (>89) 12 ML/MIN (>89) Calcium Level 10.2 MG/DL (8.5-10.1) Imaging Last Impressions Catheter Placement X-Ray 07/31/17 0000 Signed Impressions: Service Date/Time: Monday, July 31, 2017 13:41 - CONCLUSION: Uncomplicated line placement as above. Rhett Ray MD Renal Ultrasound 07/28/17 0000 Signed Impressions: Service Date/Time: Friday, July 28, 2017 10:58 - CONCLUSION: 1. The examination is within normal limits. Anatoly Wong MD Chest X-Ray 07/27/17 0000 Signed Impressions: Service Date/Time: Thursday, July 27, 2017 16:13 - CONCLUSION: No acute disease. Rhett Miller MD PE at Discharge GENERAL: Well-nourished, well-developed patient in NAD. Sitting up in bedside recliner. Awake and alert. Appears comfortable. SKIN: Warm and dry. RIJ Vas cath. HEAD: Normocephalic. Atraumatic. EYES: EOMI. No scleral icterus. No injection or drainage. ENT: No nasal bleeding or discharge. Mucous membranes pink and moist. NECK: Supple. Trachea midline. CARDIOVASCULAR: Regular rate and rhythm. S1, S2 noted. No murmur appreciated. RESPIRATORY: No accessory muscle use. Clear to auscultation. Breath sounds equal bilaterally. GASTROINTESTINAL: Abdomen soft, non-tender, nondistended. Normoactive bowel sounds x4. MUSCULOSKELETAL: No obvious deformities. Extremities without clubbing or cyanosis. Trace edema RLE. Bilateral calves supple and nontender. NEUROLOGICAL: Awake and alert. Able to move all extremities spontaneously. Nonfocal. Normal speech. Pt update on day of discharge Patient seen and examined. Patient denies any complaints. Urinating well. Patient denied any fever, chills, N/V, chest pain, SOB or abdominal pain. Discussed with Dr. Balderas who cleared patient for discharge with instructions to follow up with twice weekly BMP until GFR above 15ml/min and then once a week or less. Also per Dr. Balderas, patients Vascath discontinued prior to discharge. Hospital Course Patient presented with severe nausea and vomiting with chest pain. EKG: Initial EKG demonstrates T-wave inversions in the lateral leads with borderline [address] elevation in V1 and V2 not meeting criteria for STEMI. Repeat EKG demonstrates [address] elevation in lead V2 and 1 mm in V3 with biphasic T waves concerning for dynamic changes and ongoing ischemia. STEMI alert was called and label rewinder was activated. Patient was given aspirin, heparin, nitro drip and morphine. Patient underwent cardiac cath with coronary stent to the proximal LAD. No LV gram completed due to renal function. Patient seen in consultation by Dr. Balderas of Nephrology for EUGENE on CKD. Patient had been diagnosed Fe of this year with CKD stage IV. Patient continued on ASA, Plavix , BB, Norvasc and statin. Also started on Hydralazine to optimize blood pressure management. Echocardiogram was done revealing EF 55-60%. She is not a candidate for JOSE ROBERTO or ARB due to acute kidney injury. Patient remained non oliguric. She was treated with IVF. Patients renal function continued to decline. IR was consulted for [facility] for impending dialysis. Patient started on HD. Patients renal function remained depressed but stable. HD was held. Plan for renal biopsy but unable to proceed with procedure due to necessity of continued anticoagulation. Patient started on Levemir 10u for her untreated diabetes with good blood sugar control. HgbA1c was 7.3. Patient also started on Levothyroxine 50mcg for TSH level of 64.4. Close monitoring of patients GFR with instructions from Nephrology for patient to be discharged once GFR 15ml/ min. GFR remained at 12. Patient remained non oliguric. Discussed with case management and patient issued blue card. Patient cleared for discharge from Nephrology standpoint with instructions to have BMP checked twice a week until GFR above 15 ml/min, then once a week or less. Patient instructed on diet restriction including low salt and low potassium diet in addition to maintaining a diabetic heart healthy diet. Patients Vascath was discontinued prior to discharge as instructed by Dr. Balderas. Patient given BGM machine prior to discharge. Patient to follow up in [facility] in 2-3 days to have BMP rechecked. Pt Condition on Discharge: Stable Discharge Disposition: Discharge Home Discharge Time: > 30 minutes Discharge Instructions DIET: Follow Instructions for: Heart Healthy Diet, Diabetic Diet, Renal Failure Diet Activities you can perform: Regular-No Restrictions Follow up Referrals: Cardiology - 1 Week with Rodrigo Scott MD Nephrology - 1 Week with Adebayo Balderas MD PCP Follow-up - 2 Days Patient needs BMP twice a week until GFR above 15ml/min then once a week of less New Medications: Advocate Insulin Syringe/ 29G X 1/2" 0.3 ml (Advocate Insulin Syringe/ 29G X 1/2 " 0.3 ml) 29 Gauge X 1/2" Mis BOX .ROUTE DIRECTED for Blood Sugar Management, #1 0 Refills Blood Glucose Monitoring W/Device (Blood Glucose Monitoring W/Device) 1 Kit Kit KIT .ROUTE DIRECTED for Blood Sugar Management, #1 0 Refills Insulin Pen Needle (Pen [place] 29GX1/2" 29G X 12Mm) 29 Gauge X 1/2" Mis BOX SQ DIRECTED for Blood Sugar Management, #1 0 Refills [Bmp] () 2XWEEK for RENAL FAILURE, #1 Patient needs BMP twice a week until GFR 15ml/min, then once a week or less Amlodipine (Amlodipine) 10 Mg Tab 10 MG PO DAILY for Blood Pressure Management, #30 TAB 0 Refills Aspirin (Aspirin Low Strength) 81 Mg Chew 81 MG PO DAILY for Blood Clot Prevention for 30 Days, #30 EA Atorvastatin (Atorvastatin) 40 Mg Tab 40 MG PO HS for Cholesterol Management for 30 Days, #30 TAB Clopidogrel (Plavix) 75 Mg Tab 75 MG PO DAILY for Blood Clot Prevention for 30 Days, #30 TAB Hydralazine HCl (Hydralazine HCl) 50 Mg Tablet 100 MG PO TID for Blood Pressure Management for 30 Days, #180 TAB Insulin Detemir Inj (Levemir Inj) 1,000 unit/ 10 ML Vial 10 UNITS SQ HS for Blood Sugar Management for 30 Days, #1 INJECTION Do not mix with any other Insulin. Levothyroxine (Synthroid) 50 Mcg Tab 50 MCG PO DAILY@0600 for Thyroid for 30 Days, #30 TAB Metoprolol Tartrate (Metoprolol Tartrate) 50 Mg Tab 50 MG PO BID for Blood Pressure Management, #60 TAB 0 Refills Nitroglycerin SL (Nitrostat SL) 0.4 Mg Subl 0.4 MG SL UNSCH PRN for CHEST PAIN for 30 Days, #1 BOTTLE Carolin Becerra Aug 14, 2017 11:20 Julio César Peng MD Aug 14, 2017 12:01
== END 2017-08-14 14:07 | disposition home or self-care (01) | DRG 247 ==
LOC: NEPC 13:22 → NEDA 16:33 → HCIN 17:50 → N04B 07-31 15:13 → N04A 07-31 19:08
PROVIDERS: ADMIT Hospitalist; ATTEND Internal Medicine
PROC: 027034Z Dilation of Coronary Artery, One Artery with Drug-eluting Intraluminal Device, Percutaneous Approach (ICD-10-PCS; principal; 2017-07-27)
PROC: 4A023N7 Measurement of Cardiac Sampling and Pressure, Left Heart, Percutaneous Approach (ICD-10-PCS; 2017-07-27)
PROC: B2111ZZ Fluoroscopy of Multiple Coronary Arteries using Low Osmolar Contrast (ICD-10-PCS; 2017-07-27)
PROC: 05HM33Z Insertion of Infusion Device into Right Internal Jugular Vein, Percutaneous Approach (ICD-10-PCS; 2017-07-31)
PROC: 5A1D60Z (ICD-10-PCS; 2017-07-31)
DX: I21.3 ST elevation (STEMI) myocardial infarction of unspecified site (principal); E11.22 Type 2 diabetes mellitus with diabetic chronic kidney disease; N17.9 Acute kidney failure, unspecified; N18.4 Chronic kidney disease, stage 4 (severe); E11.65 Type 2 diabetes mellitus with hyperglycemia; F17.210 Nicotine dependence, cigarettes, uncomplicated; E03.9 Hypothyroidism, unspecified; E78.5 Hyperlipidemia, unspecified; I12.9 Hypertensive chronic kidney disease with stage 1 through stage 4 chronic kidney disease, or unspecified chronic kidney disease; D64.9 Anemia, unspecified; R60.0 Localized edema; I25.10 Atherosclerotic heart disease of native coronary artery without angina pectoris; F10.10 Alcohol abuse, uncomplicated; Z91.19 Patient's noncompliance with other medical treatment and regimen
CPT/HCPCS: 36556; 71010; 76775; 76937; 77001; 80048; 80053; 80061; 80074; 81001; 82550; 82552; 82948; 83036; 83605; 83690; 83735; 83880; 84100; 84439; 84443; 84484; 84703; 85002; 85025; 85027; 85610; 85730; 86021; 86038; 86160; 90935; 92941; 93005; 93306; 93458; 96361; 96365; 96372; 96374; 96375; 96376; C1725; C1752; C1760; C1769; C1874; C1887; C1893; G0269; J0171; J0360; J0461; J1580; J1644; J1815; J1940; J2270; J2405; J2550; J3010; J7030; Q0177; Q9967

== ENCOUNTER → 2017-08-19 | Outpatient (CLI) | payer SELFPAY ==
[~2017-08-19] MED LIST changes: +AMLO10TA2 PO; +ASPI81CH25 PO; +ATOR40TA16 PO; +BLOOD GLUCOSE M1 KIT; +BMP; -CIPR500T2 PO; -GLUC1000 PO; -HYDR-3533 PO; +HYDR-3800 PO; +LEVEMIR SQ; +LEVO.05 PO; -LISI-366 PO; -METH750T2 PO; +METO50TA PO; +NITR0.4S SL; +PEN29MIS SQ; +PLAV75TA29 PO; -TRAM50TA PO; -ZOFR4TAB3 SL; +[UNRECOGNIZED DRUG - CODE]
[2017-08-19 13:09] LABS: BICARBONATE 20.4 MEQ/L (21.0-32.0); POTASSIUM 4.3 MEQ/L (3.5-5.1)
== END ==
LOC: CLAB 12:20
PROVIDERS: ATTEND Physician Assistant Surgical
DX: N17.9 Acute kidney failure, unspecified (principal)
CPT/HCPCS: 36415; 80048

== ENCOUNTER 2017-08-26 18:07 | Emergency (ER) | payer SELFPAY ==
[~2017-08-26] VITALS: Ht 165.1 cm; Wt 110.0 kg
[2017-08-26 18:11] VITALS: PULSE 70; RESP 13; TEMP 97.9; O2SAT 95
[2017-08-26 20:41] VITALS: BP 194/91; PULSE 72; RESP 18; O2SAT 98
--- NOTE | 2017-08-26 21:39 | PD ---
HPI Chief Complaint: Edema Time Seen by Provider: 20:45 Travel History International Travel<30 days: No Contact w/Intl Traveler<30days: No History of Present Illness HPI Patient comes in complaining of bilateral lower extremity edema ongoing for at least 2 months. Patient states her legs are fine in the morning however she sits in a her job all day and the Swelling gets worse. Patient having some pain with them today that had her concerned and decided to come to the emergency department further treatment and evaluation. Describes pain as a soreness in her feet without radiation. Walking makes the pain worse. Elevating her feet makes the pain better. Denies any trauma. Patient states she's been following with Dr. Balderas regarding her kidney function. Patient reports associated dyspnea on exertion has been ongoing since previous heart attack a month ago. Patient states she was on dialysis for 2 episodes secondary to kidney shutting down during the cardiac stenting. Patient denies any chest pain, nausea, vomiting, loss or change in bowel or bladder, fevers, or other concerns. PFSH Past Medical History Heart Rhythm Problems: Yes Cancer: No Cardiovascular Problems: Yes Chest Pain: Yes Diabetes: Yes Patient Takes Glucophage: No Diminished Hearing: No Endocrine: Yes Gastrointestinal Disorders: Yes Genitourinary: Yes Hypertension: Yes Immune Disorder: No Musculoskeletal: No Neurologic: No Psychiatric: No Reproductive: No Respiratory: Yes Thyroid Disease: Yes Tetanus Vaccination: Unknown Influenza Vaccination: No ?: Not LMP: 07/2017 Tubal Ligation: Yes Past Surgical History Abdominal Surgery: Yes (appendix) Section: Yes Cholecystectomy: Yes Coronary Stent: Yes ( - 07/2017) Other Surgery: Yes (BOTH UNDERARMS HX BOILS) Social History Alcohol Use: No (QUIT) Tobacco Use: No (QUIT) Substance Use: No Allergies-Medications (Allergen,Severity, Reaction): Coded Allergies: cephalexin (Verified Allergy, Severe, 08/26/17) Reported Meds & Prescriptions Reported Meds & Active Scripts Active [Bmp] 2XWEEK Patient needs BMP twice a week until GFR 15ml/min, then once a week or less Blood Glucose Monitoring W/Device (Device) 1 Kit Kit Kit .ROUTE DIRECTED Advocate Insulin Syringe/ 29G X 1/2" 0.3 ml 29 Gauge X 1/2" Mis Box .ROUTE DIRECTED Pen [place] 29GX1/2" 29G X 12Mm (Insulin Pen Needle) 29 Gauge X 1/2" Mis Box SQ DIRECTED Synthroid (Levothyroxine Sodium) 50 Mcg Tab 50 Mcg PO DAILY@0600 30 Days Levemir Inj (Insulin Detemir) 1,000 unit/ 10 ML Vial 10 Units SQ HS 30 Days Do not mix with any other Insulin. Aspirin Low Strength (Aspirin) 81 Mg Chew 81 Mg PO DAILY 30 Days Amlodipine (Amlodipine Besylate) 10 Mg Tab 10 Mg PO DAILY Metoprolol Tartrate 50 Mg Tab 50 Mg PO BID Nitrostat SL (Nitroglycerin) 0.4 Mg Subl 0.4 Mg SL UNSCH PRN 30 Days Hydralazine HCl 50 Mg Tablet 100 Mg PO TID 30 Days Atorvastatin (Atorvastatin Calcium) 40 Mg Tab 40 Mg PO HS 30 Days Plavix (Clopidogrel Bisulfate) 75 Mg Tab 75 Mg PO DAILY 30 Days Review of Systems Except as stated in HPI: all other systems reviewed are Neg Physical Exam Narrative GENERAL: Well-developed, overly nourished, in no acute distress, and non-ill appearing. SKIN: Focused skin assessment warm and dry. HEAD: Atraumatic. Normocephalic. EYES: Pupils equal and round. EOMI. No scleral icterus. No injection or drainage. ENT: No nasal bleeding or discharge. Mucous membranes pink and moist. NECK: Trachea midline. Supple. No nuclear rigidity. CARDIOVASCULAR: Regular rate and rhythm. No murmur appreciated. RESPIRATORY: No accessory muscle use. No respiratory distress. Clear to auscultation. Breath sounds equal bilaterally. MUSCULOSKELETAL: No obvious deformities. No clubbing. No cyanosis. 1+ bilateral pedal edema. Full range of motion. NEUROLOGICAL: Awake and alert. No obvious cranial nerve deficits. Motor grossly within normal limits. Normal speech. PSYCHIATRIC: Appropriate mood and affect; insight and judgment normal. Data Data Last Documented VS Vital Signs Date Time Temp Pulse Resp B/P (MAP) Pulse Ox O2 Delivery O2 Flow Rate FiO2 08/27/17 02:52 08/27/17 00:30 72 18 97 Room Air 08/26/17 18:11 97.9 Orders Orders Us Leg Venous Doppler Bilat (08/26/17 21:34) Chest, Single Ap (08/26/17 ) Electrocardiogram (08/26/17 20:45) Basic Metabolic Panel (Bmp) (08/27/17 01:40) Urinalysis - C+S If Indicated (08/27/17 01:42) Al-Mag Hy-Si 40-40-4 Mg/Ml Liq (Mag-Al P (08/27/17 01:45) Pantoprazole (Protonix) (08/27/17 01:45) Ed Discharge Order (08/27/17 02:39) Labs Laboratory Tests Test 08/27/17 02:01 Urine Color YELLOW Urine Turbidity HAZY Urine pH 6.5 Urine Specific [place] 1.013 Urine Protein 300 mg/dL Urine Glucose (UA) 70 mg/dL Urine Ketones NEG mg/dL Urine Occult Blood TRACE Urine Nitrite NEG Urine Bilirubin NEG Urine Urobilinogen LESS THAN 2.0 MG/DL Urine Leukocyte Esterase NEG Urine RBC 22 /hpf Urine WBC 7 /hpf Urine Squamous Epithelial Cells 5 /hpf Urine Amorphous Sediment RARE Urine Bacteria RARE /hpf Microscopic Urinalysis Comment CULT NOT INDICATED Blood Urea Nitrogen 57 MG/DL Creatinine 3.16 MG/DL Random Glucose 122 MG/DL Calcium Level 10.2 MG/DL Sodium Level 141 MEQ/L Potassium Level 4.0 MEQ/L Chloride Level 112 MEQ/L Carbon Dioxide Level 20.5 MEQ/L Anion Gap 9 MEQ/L Estimat Glomerular Filtration Rate 16 ML/MIN [facility] Medical Decision Making Medical Screen Exam Complete: Yes Emergency Medical Condition: Yes Differential Diagnosis CHF, DVT, dependent edema, or other Narrative Course Patient seen and examined. Initial Radiological studies were ordered. Patient was signed out to Dr. Dietrich the end of my shift pending ultrasound results. Please see his documentation for final diagnosis and disposition. Ilan Nicholas Aug 26, 2017 21:39
--- NOTE | 2017-08-26 22:34 | RADRPT ---
EXAM DATE/TIME: 08/26/2017 21:43 [facility] COMPARISON: CHEST SINGLE AP, July 27, 2017, 16:13. INDICATIONS : Shortness of breath and feet swelling. MEDICAL HISTORY : Hypertension. SURGICAL HISTORY : None. ENCOUNTER: Initial ACUITY: 1 day PAIN SCORE: Non-responsive. LOCATION: chest FINDINGS: A single view of the chest demonstrates the lungs to be symmetrically aerated without evidence of mas s, infiltrate or effusion. The cardiomediastinal contours are unremarkable. Osseous structures are intact. CONCLUSION: No acute disease. No significant change has occurred. Hussein Do MD on August 26, 2017 at 22:33 Board Certified Radiologist. This report was verified electronically.
--- NOTE | 2017-08-26 23:05 | RADRPT ---
EXAM DATE/TIME: 08/26/2017 22:24 [facility] COMPARISON: No previous studies available for comparison. INDICATIONS : Bilateral leg swelling. MEDICAL HISTORY : Hypertension. Thyroid disease.Dentures. Syncope. Chest pain. Renal disease. Diabetes. SURGICAL HISTORY : Cholecystectomy.Tubal ligation. section.Coronary stent. ENCOUNTER: Initial ACUITY: 3 months PAIN SCORE: 4/10 LOCATION: Bilateral legs. TECHNIQUE: Venous ultrasound of the left and right leg was performed from the inguinal ligament to the proximal calf. Real-time, color Doppler and spectral tracing, compression and augmentation techniques were us ed. FINDINGS: RIGHT LEG: There is normal compressibility of the deep venous system from the inguinal region to the proximal ca lf. No echogenic clot is seen in the lumen of the common femoral, femoral, popliteal, and posterior tibial veins. There is a normal response of the venous system to proximal and distal augmentation an d respiration. LEFT LEG: There is normal compressibility of the deep venous system from the inguinal region to the proximal ca lf. No echogenic clot is seen in the lumen of the common femoral, femoral, popliteal, and posterior tibial veins. There is a normal response of the venous system to proximal and distal augmentation an d respiration. CONCLUSION: Normal examination. Rhett Ray MD on August 26, 2017 at 23:04 Board Certified Radiologist. This report was verified electronically.
[2017-08-27 00:30] VITALS: BP 178/87; PULSE 72; RESP 18; O2SAT 97
--- NOTE | 2017-08-27 01:42 | PD ---
Physical Exam Narrative Patient was seen by my electrician station assistant and signed out to me. Data Data Last Documented VS Vital Signs Date Time Temp Pulse Resp B/P (MAP) Pulse Ox O2 Delivery O2 Flow Rate FiO2 08/26/17 20:41 72 18 194/91 (125) 98 Room Air 08/26/17 18:11 97.9 Orders Orders Us Leg Venous Doppler Bilat (08/26/17 21:34) Chest, Single Ap (08/26/17 ) Electrocardiogram (08/26/17 20:45) Basic Metabolic Panel (Bmp) (08/27/17 01:40) Urinalysis - C+S If Indicated (08/27/17 01:42) Al-Mag Hy-Si 40-40-4 Mg/Ml Liq (Mag-Al P (08/27/17 01:45) Pantoprazole (Protonix) (08/27/17 01:45) Labs Laboratory Tests Test 08/27/17 02:01 Urine Color YELLOW Urine Turbidity HAZY Urine pH 6.5 Urine Specific [place] 1.013 Urine Protein 300 mg/dL Urine Glucose (UA) 70 mg/dL Urine Ketones NEG mg/dL Urine Occult Blood TRACE Urine Nitrite NEG Urine Bilirubin NEG Urine Urobilinogen LESS THAN 2.0 MG/DL Urine Leukocyte Esterase NEG Urine RBC 22 /hpf Urine WBC 7 /hpf Urine Squamous Epithelial Cells 5 /hpf Urine Amorphous Sediment RARE Urine Bacteria RARE /hpf Microscopic Urinalysis Comment CULT NOT INDICATED Blood Urea Nitrogen 57 MG/DL Creatinine 3.16 MG/DL Random Glucose 122 MG/DL Calcium Level 10.2 MG/DL Sodium Level 141 MEQ/L Potassium Level 4.0 MEQ/L Chloride Level 112 MEQ/L Carbon Dioxide Level 20.5 MEQ/L Anion Gap 9 MEQ/L Estimat Glomerular Filtration Rate 16 ML/MIN [facility] Supervised Visit with TIM: Yes Interpretation(s) Last Impressions Lower Extremity Ultrasound 08/26/172133 Signed Impressions: Service Date/Time: Saturday, August 26, 2017 22:24 - CONCLUSION: Normal examination. Rhett Ray MD Chest X-Ray 08/26/17 0000 Signed Impressions: Service Date/Time: Saturday, August 26, 2017 21:43 - CONCLUSION: No acute disease. No significant change has occurred. Hussein Do MD 2 33 AM. UA positive RBC, WBC, rare bacteria, protein, glucose and trace of blood. BUN 57. Creatinine 3.16. Diagnosis Primary Impression: Dependent edema Additional Impression: Chronic kidney disease Qualified Codes: N18.4 - Chronic kidney disease, stage 4 (severe) Patient Instructions: General Instructions Additional Instruction: . Keep Legs elevated. Follow-up with assistant dean. Return if worse. Med/Other Pt SpecificInfo: No Change to Meds Disposition: 01 DISCHARGE HOME Condition: Stable Gonzalo Dietrich MD Aug 27, 2017 01:42
[2017-08-27] MEDS ORDERED: ALUMINUM/MAGNESIUM/SIMETH 30 ML CUP PO ONE (01:45)
[2017-08-27] MEDS ORDERED: PANTOPRAZOLE SOD 20 MG DELAYED RELEASE TAB PO ONE (01:45)
[2017-08-27 02:21] LABS: BACTERIA, URINE RARE /hpf; BLOOD, URINE TRACE (NEG); COMMENT (UR) CULT NOT INDICATED; CULTURE IF INDICATED CULT NOT INDICATED; GLUCOSE,URINE 70 mg/dL (NEG); KETONE, URINE NEG (NEG); NITRITE,URINE NEG (NEG); PH, URINE 6.5 (5.0-8.5); SQUAMOUS EPITHELIAL CELL URINE 5 /hpf (0-5); URINE COLOR YELLOW (YELLW/STRAW)
[2017-08-27 02:31] LABS: BICARBONATE 20.5 MEQ/L (21.0-32.0)
--- NOTE | 2017-08-27 13:40 | EKG ---
Date Performed: 08/26/2017 Time Performed: 20:45:55 PTAGE: 52 years EKG: Sinus rhythm ABNORMAL QRS-T ANGLE ABNORMAL ECG Compared to PREVIOUS TRACING , the ischemic changes suggesting left anterior descending disease are n o longer evident. PREVIOUS TRACING DOCTOR: Brigitte Caban Interpretating Date/Time 08/27/2017 13:37:56
== END 2017-08-27 02:54 | disposition home or self-care (01) ==
LOC: NEPE 18:07
DX: I12.9 Hypertensive chronic kidney disease with stage 1 through stage 4 chronic kidney disease, or unspecified chronic kidney disease (principal); E11.22 Type 2 diabetes mellitus with diabetic chronic kidney disease; N18.4 Chronic kidney disease, stage 4 (severe); Z87.891 Personal history of nicotine dependence
CPT/HCPCS: 71010; 80048; 81001; 93005; 93970

== ENCOUNTER 2017-09-04 09:13 | Emergency (ER) | payer OTHER ==
[~2017-09-04] VITALS: Ht 165.1 cm; Wt 104.5 kg
[2017-09-04 09:15] VITALS: BP 204/84; PULSE 76; RESP 14; TEMP 98.4; O2SAT 96
--- NOTE | 2017-09-04 09:48 | PD ---
HPI Chief Complaint: Pain: Acute or Chronic Time Seen by Provider: 09:38 Travel History International Travel<30 days: No Contact w/Intl Traveler<30days: No Traveled to known affect area: No History of Present Illness HPI 52-year-old right-handed female with history of hypertension, diabetes who follows with Dr. Balderas presents to the emergency room for evaluation of right wrist pain for the past 2 days. Patient states she woke up with the pain yesterday. She denies trauma or injury. States "it feels like it is broken." Is localized to the ulnar aspect and worse with any range of motion. It is constant, sharp in nature. Patient has not taken anything for symptoms. Denies paresthesias. States she was unable to take her blood pressure medication this morning because she cannot open the bottles because of the pain in her wrist. Patient had the nurse open her bottles and took her medication while in the ED. She reports feeling cold but denies fever, chills, nausea, and vomiting. PFSH Past Medical History Hx Anticoagulant Therapy: Yes (PLAVIX) Heart Rhythm Problems: Yes Cancer: No Cardiovascular Problems: Yes (07/27/17) Chest Pain: Yes Diabetes: Yes Diminished Hearing: No Endocrine: Yes Gastrointestinal Disorders: Yes Genitourinary: Yes Hypertension: Yes Immune Disorder: No Musculoskeletal: No Neurologic: No Psychiatric: No Reproductive: No Respiratory: Yes Thyroid Disease: Yes Tubal Ligation: Yes Past Surgical History Abdominal Surgery: Yes (appendix) Section: Yes Cholecystectomy: Yes Coronary Stent: Yes ( - 07/2017) Other Surgery: Yes (BOTH UNDERARMS HX BOILS) Social History Alcohol Use: No (QUIT) Tobacco Use: No (QUIT) Substance Use: No Allergies-Medications (Allergen,Severity, Reaction): Coded Allergies: cephalexin (Verified Allergy, Severe, 09/04/17) Reported Meds & Prescriptions Reported Meds & Active Scripts Active [Bmp] 2XWEEK Patient needs BMP twice a week until GFR 15ml/min, then once a week or less Blood Glucose Monitoring W/Device (Device) 1 Kit Kit Kit .ROUTE DIRECTED [facility] Insulin Syringe/ 29G X 1/2" 0.3 ml 29 Gauge X 1/2" Mis Box .ROUTE DIRECTED [place] 29GX1/2" 29G X 12Mm (Insulin Pen Needle) 29 Gauge X 1/2" Mis Box SQ DIRECTED Synthroid (Levothyroxine Sodium) 50 Mcg Tab 50 Mcg PO DAILY@0600 30 Days Levemir Inj (Insulin Detemir) 1,000 unit/ 10 ML Vial 10 Units SQ HS 30 Days Do not mix with any other Insulin. Amlodipine (Amlodipine Besylate) 10 Mg Tab 10 Mg PO DAILY Metoprolol Tartrate 50 Mg Tab 50 Mg PO BID Nitrostat SL (Nitroglycerin) 0.4 Mg Subl 0.4 Mg SL UNSCH PRN 30 Days Hydralazine HCl 50 Mg Tablet 100 Mg PO TID 30 Days Atorvastatin (Atorvastatin Calcium) 40 Mg Tab 40 Mg PO HS 30 Days Plavix (Clopidogrel Bisulfate) 75 Mg Tab 75 Mg PO DAILY 30 Days Review of Systems Except as stated in HPI: all other systems reviewed are Neg Physical Exam Narrative GENERAL: Well-nourished, obese female in no acute distress. Afebrile. Ambulatory. SKIN: Focused skin assessment warm/dry. HEAD: Normocephalic. EYES: No scleral icterus. No injection or drainage. NECK: Supple, trachea midline. No JVD or lymphadenopathy. CARDIOVASCULAR: Regular rate and rhythm without murmurs, gallops, or rubs. RESPIRATORY: Breath sounds equal bilaterally. No accessory muscle use. EXTREMITY: Right wrist extremely tender to palpation especially over the ulnar styloid. Limited range of motion of the wrist secondary to pain. Distal sensation intact. 2+ radial pulse. No obvious edema. No erythema or ecchymosis. Data Data Last Documented VS Vital Signs Date Time Temp Pulse Resp B/P (MAP) Pulse Ox O2 Delivery O2 Flow Rate FiO2 09/04/17 10:37 09/04/17 09:15 98.4 76 14 96 Orders Orders Wrist, Complete ([id number]) (09/04/17 ) Splint Or Brace Apply/Monitor (09/04/17 10:28) Ed Discharge Order (09/04/17 10:31) Cockup Hand Splint (09/04/17 ) MDM Medical Decision Making Medical Screen Exam Complete: Yes Emergency Medical Condition: Yes Medical Record Reviewed: Yes Differential Diagnosis Inflammatory Arthritis from kidney failure, septic arthritis, sprain, strain Narrative Course 52-year-old female with history of diabetes, hypertension, renal failure presents to the emergency room for evaluation of right wrist pain for the past 2 days. Patient denies trauma or injury and states "it feels like it is broken. " Physical exam is reassuring. There is no erythema or ecchymosis. No appreciable edema. 2+ radial pulse. Less than 2 second capillary refill distally. Limited range of motion of the wrist secondary to pain. Extreme tenderness over the radial styloid. X-ray is negative. I suspect inflammatory arthritis especially with history of kidney disease. No concern for septic arthritis, there is no erythema and patient has been afebrile. Patient was placed in Velcro wrist splint and told to follow-up with her primary care physician or return for worsening symptoms. She understands and agrees to plan. Diagnosis Primary Impression: Arthritis of right wrist Referrals: Primary Care Physician Additional Instructions: Rest and drink plenty of fluids. Use splint as needed for pain. Take off occasionally to prevent stiffness. Take Tylenol as directed, as needed for pain. Apply ice to the affected area for 20 minutes at a time, as needed for pain and swelling. Follow-up with a primary care physician. Return to the emergency room for worsening symptoms. Disposition: 01 DISCHARGE HOME Condition: Stable Ting Acosta Sep 04, 2017 09:48
[2017-09-04 09:58] VITALS: BP 196/88
--- NOTE | 2017-09-04 10:25 | RADRPT ---
EXAM DATE/TIME: 09/04/2017 10:13 [facility] COMPARISON: No previous studies available for comparison. INDICATIONS : Right wrist pain and swelling, no known injury. MEDICAL HISTORY : Hypertension. Thyroid disease.Dentures. Syncope. Chest pain. Renal disease.Diabetes. SURGICAL HISTORY : Cholecystectomy.Tubal ligation. section.Coronary stent. ENCOUNTER: Initial ACUITY: 1 day PAIN SCORE: 7/10 LOCATION: Right wrist FINDINGS: Three view examination of the right wrist demonstrates no soft tissue swelling, dislocation, or fract ure. The carpal bones are in normal alignment. The joint spaces are maintained. Bony mineralizatio n is normal. CONCLUSION: Normal examination for a patient of this age. Hussein Do MD on September 04, 2017 at 10:23 Board Certified Radiologist. This report was verified electronically.
[2017-09-04 10:33] VITALS: BP 171/83
== END 2017-09-04 10:43 | disposition home or self-care (01) ==
LOC: NEPK 09:13
DX: M19.031 Primary osteoarthritis, right wrist (principal)
CPT/HCPCS: 73110; 99283; L3908

== ENCOUNTER 2017-10-23 19:16 | Observation (INO) | payer SELFPAY ==
[~2017-10-23] VITALS: Ht 165.1 cm; Wt 102.9 kg
[2017-10-23] VITALS (7 sets, daily range): BP systolic 170–228; BP diastolic 86–100; PULSE 91–96; RESP 16–18; TEMP 99; O2SAT 95–100
[~2017-10-23 19:16] MED LIST changes: -ASPI81CH25 PO
--- NOTE | 2017-10-23 20:39 | PD ---
HPI Chief Complaint: Chest Pain Time Seen by Provider: 20:17 Travel History International Travel<30 days: No Contact w/Intl Traveler<30days: No Traveled to known affect area: No History of Present Illness HPI 52-year-old female presents to emergency department complaining of midsternal chest pain that started approximately 2 days ago. Patient states that she took a nitroglycerin today with some relief of her pain. Patient describes her pain as constant, pressure, without radiation. Patient states that she has had a mild nonproductive cough, vomiting, and nonbloody diarrhea. She is also had a decreased appetite for about 2 days because of her symptoms. She denies fever, chills, shortness of breath, abdominal pain. Patient thinks that some of her chest pain is secondary to a cough that she has. Patient states history significant for diabetes, history of NM with stent placement in July, end- stage renal disease not currently on hemodialysis. Patient no longer smokes. Patient has not been compliant with medications secondary to insurance issues. PFSH Past Medical History Hx Anticoagulant Therapy: Yes (PLAVIX) Heart Rhythm Problems: Yes Cancer: No Cardiovascular Problems: Yes (07/27/17) Chest Pain: Yes Diabetes: Yes Patient Takes Glucophage: Yes Diminished Hearing: No Endocrine: Yes Gastrointestinal Disorders: Yes Genitourinary: Yes Hypertension: Yes Immune Disorder: No Implanted Vascular Access Dvce: No Musculoskeletal: No Neurologic: No Psychiatric: No Reproductive: No Respiratory: Yes Immunizations Current: Yes Thyroid Disease: Yes Tetanus Vaccination: Unknown Influenza Vaccination: No ?: Unknown Tubal Ligation: Yes Past Surgical History Abdominal Surgery: Yes (appendix) Section: Yes Cholecystectomy: Yes Coronary Stent: Yes ( - 07/2017) Other Surgery: Yes (BOTH UNDERARMS HX BOILS) Social History Alcohol Use: No (QUIT) Tobacco Use: No (QUIT) Substance Use: No Allergies-Medications (Allergen,Severity, Reaction): Coded Allergies: cephalexin (Verified Allergy, Severe, 10/23/17) Reported Meds & Prescriptions Reported Meds & Active Scripts Active [Bmp] 2XWEEK Patient needs BMP twice a week until GFR 15ml/min, then once a week or less Blood Glucose Monitoring W/Device (Device) 1 Kit Kit Kit .ROUTE DIRECTED [facility] Insulin Syringe/ 29G X 1/2" 0.3 ml 29 Gauge X 1/2" Mis Box .ROUTE DIRECTED Pen [place] 29GX1/2" 29G X 12Mm (Insulin Pen Needle) 29 Gauge X 1/2" Mis Box SQ DIRECTED Synthroid (Levothyroxine Sodium) 50 Mcg Tab 50 Mcg PO DAILY@0600 30 Days Levemir Inj (Insulin Detemir) 1,000 unit/ 10 ML Vial 10 Units SQ HS 30 Days Do not mix with any other Insulin. Amlodipine (Amlodipine Besylate) 10 Mg Tab 10 Mg PO DAILY Metoprolol Tartrate 50 Mg Tab 50 Mg PO BID Nitrostat SL (Nitroglycerin) 0.4 Mg Subl 0.4 Mg SL UNSCH PRN 30 Days Hydralazine HCl 50 Mg Tablet 100 Mg PO TID 30 Days Atorvastatin (Atorvastatin Calcium) 40 Mg Tab 40 Mg PO HS 30 Days Plavix (Clopidogrel Bisulfate) 75 Mg Tab 75 Mg PO DAILY 30 Days Review of Systems Except as stated in HPI: all other systems reviewed are Neg Physical Exam Narrative GENERAL: Well developed well nourished in no apparent distress SKIN: Focused skin assessment warm/dry. HEAD: Atraumatic. Normocephalic. EYES: Pupils equal and round. No scleral icterus. No injection or drainage. ENT: No nasal bleeding or discharge. Mucous membranes pink and moist. NECK: Trachea midline. No JVD. No lymphadenopathy CARDIOVASCULAR: Regular rate and rhythm. No murmur appreciated. RESPIRATORY: No accessory muscle use. Clear to auscultation. Breath sounds equal bilaterally. GASTROINTESTINAL: Abdomen soft, non-tender, nondistended. Hepatic and splenic margins not palpable. MUSCULOSKELETAL: No obvious deformities. No clubbing. No cyanosis. No edema. Chest pain not reproducible on palpation NEUROLOGICAL: Awake and alert. No obvious cranial nerve deficits. Motor grossly within normal limits. Normal speech. PSYCHIATRIC: Appropriate mood and affect; insight and judgment normal. Data Data Last Documented VS Vital Signs Date Time Temp Pulse Resp B/P (MAP) Pulse Ox O2 Delivery O2 Flow Rate FiO2 10/23/17 20:40 100 Room Air 10/23/17 20:40 18 10/23/17 19:17 99.0 95 Orders Orders Electrocardiogram (10/23/17 20:39) Ckmb (Isoenzyme) Profile (10/23/17 20:39) Complete Blood Count With Diff (10/23/17 20:39) Comprehensive Metabolic Panel (10/23/17 20:39) Magnesium (Mg) (10/23/17 20:39) Prothrombin Time / Inr (Pt) (10/23/17 20:39) Act Partial Throm Time (Ptt) (10/23/17 20:39) Troponin I (10/23/17 20:39) Lipase (10/23/17 20:39) Chest, Single Ap (10/23/17 20:39) Ecg Monitoring (10/23/17 20:39) Bilateral Bp Monitoring (10/23/17 20:39) Iv Access Insert/Monitor (10/23/17 20:39) Oximetry (10/23/17 20:39) Oxygen Administration (10/23/17 20:39) Aspirin Chew (Aspirin Chew) (10/23/17 20:45) Sodium Chloride 0.9% Flush (Ns Flush) (10/23/17 20:45) Sodium Chlorid 0.9% 500 Ml Inj (Ns 500 M (10/23/17 20:45) Admit Order (Ed Use Only) (10/23/17 22:00) Consult Cardiology (10/23/17 ) Labs Laboratory Tests Test 10/23/17 20:42 White Blood Count 12.6 TH/MM3 Red Blood Count 4.27 MIL/MM3 Hemoglobin 11.9 GM/DL Hematocrit 35.5 % Mean Corpuscular Volume 83.1 FL Mean Corpuscular Hemoglobin 27.8 PG Mean Corpuscular Hemoglobin Concent 33.5 % Red Cell Distribution Width 14.6 % Platelet Count 237 TH/MM3 Mean Platelet Volume 9.2 FL Neutrophils (%) (Auto) 89.1 % Lymphocytes (%) (Auto) 6.3 % Monocytes (%) (Auto) 3.7 % Eosinophils (%) (Auto) 0.2 % Basophils (%) (Auto) 0.7 % Neutrophils # (Auto) 11.2 TH/MM3 Lymphocytes # (Auto) 0.8 TH/MM3 Monocytes # (Auto) 0.5 TH/MM3 Eosinophils # (Auto) 0.0 TH/MM3 Basophils # (Auto) 0.1 TH/MM3 CBC Comment DIFF FINAL Differential Comment Prothrombin Time 10.5 SEC Prothromb Time International Ratio 1.0 RATIO Activated Partial Thromboplast Time 24.3 SEC Blood Urea Nitrogen 52 MG/DL Creatinine 3.95 MG/DL Random Glucose 267 MG/DL Total Protein 7.2 GM/DL Albumin 2.8 GM/DL Calcium Level 10.1 MG/DL Magnesium Level 1.5 MG/DL Alkaline Phosphatase 128 U/L Aspartate Amino Transf (AST/SGOT) 17 U/L Alanine Aminotransferase (ALT/SGPT) 12 U/L Total Bilirubin 0.3 MG/DL Sodium Level 138 MEQ/L Potassium Level 4.7 MEQ/L Chloride Level 108 MEQ/L Carbon Dioxide Level 21.0 MEQ/L Anion Gap 9 MEQ/L Estimat Glomerular Filtration Rate 12 ML/MIN Total Creatine Kinase 53 U/L Troponin I 0.15 NG/ML Lipase 149 U/L MDM Medical Decision Making Medical Screen Exam Complete: Yes Emergency Medical Condition: Yes Differential Diagnosis STEMI, NSTEMI, angina, atypical chest pain Narrative Course 52-year-old female presents to emergency department complaining of midsternal chest pain that started approximately 2 days ago. Patient states that she took a nitroglycerin today with some relief of her pain. Patient describes her pain as constant, pressure, without radiation. Patient states that she has had a mild nonproductive cough, vomiting, and nonbloody diarrhea. She is also had a decreased appetite for about 2 days because of her symptoms. She denies fever, chills, shortness of breath, abdominal pain. Patient thinks that some of her chest pain is secondary to a cough that she has. Patient states history significant for diabetes, history of NM with stent placement in July, end- stage renal disease not currently on hemodialysis. Patient no longer smokes. Patient has not been compliant with medications secondary to insurance issues. Vital signs stable Patient had a cardiac catheter with stent placement in July but has not followed up with cardiology as recommended. No stress test noted. EKG-sinus tachycardia without ST elevation or depression. Initial set of troponin positive. Her last troponin was very elevated in July but I do not see a repeat troponin after the initial. Laboratory Tests Test 10/23/17 20:42 White Blood Count 12.6 TH/MM3 Red Blood Count 4.27 MIL/MM3 Hemoglobin 11.9 GM/DL Hematocrit 35.5 % Mean Corpuscular Volume 83.1 FL Mean Corpuscular Hemoglobin 27.8 PG Mean Corpuscular Hemoglobin Concent 33.5 % Red Cell Distribution Width 14.6 % Platelet Count 237 TH/MM3 Mean Platelet Volume 9.2 FL Neutrophils (%) (Auto) 89.1 % Lymphocytes (%) (Auto) 6.3 % Monocytes (%) (Auto) 3.7 % Eosinophils (%) (Auto) 0.2 % Basophils (%) (Auto) 0.7 % Neutrophils # (Auto) 11.2 TH/MM3 Lymphocytes # (Auto) 0.8 TH/MM3 Monocytes # (Auto) 0.5 TH/MM3 Eosinophils # (Auto) 0.0 TH/MM3 Basophils # (Auto) 0.1 TH/MM3 CBC Comment DIFF FINAL Differential Comment Prothrombin Time 10.5 SEC Prothromb Time International Ratio 1.0 RATIO Activated Partial Thromboplast Time 24.3 SEC Blood Urea Nitrogen 52 MG/DL Creatinine 3.95 MG/DL Random Glucose 267 MG/DL Total Protein 7.2 GM/DL Albumin 2.8 GM/DL Calcium Level 10.1 MG/DL Magnesium Level 1.5 MG/DL Alkaline Phosphatase 128 U/L Aspartate Amino Transf (AST/SGOT) 17 U/L Alanine Aminotransferase (ALT/SGPT) 12 U/L Total Bilirubin 0.3 MG/DL Sodium Level 138 MEQ/L Potassium Level 4.7 MEQ/L Chloride Level 108 MEQ/L Carbon Dioxide Level 21.0 MEQ/L Anion Gap 9 MEQ/L Estimat Glomerular Filtration Rate 12 ML/MIN Total Creatine Kinase 53 U/L Troponin I 0.15 NG/ML Lipase 149 U/L Last Impressions Chest X-Ray 10/23/[id number] Signed Impressions: Service Date/Time: Monday, October 23, 2017 20:51 - CONCLUSION: Cardiomegaly. No focal infiltrate or pulmonary vascular congestion. Benny Sanders MD Patient will be admitted with STEMI. We'll consult cardiology. Thank you Dr. Estrella for taking this patient. Diagnosis Primary Impression: NSTEMI (non-ST elevated myocardial infarction) Admitting Information Admitting Physician Requests: Admit Condition: Stable Lali Mendoza Oct 23, 2017 20:39
[2017-10-23] MEDS ORDERED: ASPIRIN 81 MG CHEW TAB PO ONE (20:45)
[2017-10-23] MEDS ORDERED: SODIUM CHLORID 0.9% 500 ML INJ 500 ML IV ONE (20:45)
[2017-10-23] MEDS ORDERED: SODIUM CHLORIDE 0.9% FLUSH 10 ML FLUSH IVF PRN (20:45)
[2017-10-23 21:03] LABS: AUTOMATED NEUTROPHIL # 11.2 TH/MM3 (1.8-7.7); BASOPHIL # 0.1 TH/MM3 (0-0.2); BASOPHIL % 0.7 % (0.0-2.0); EOSINOPHIL % 0.2 % (0.0-4.0); HEMATOCRIT 35.5 % (35.0-46.0); HEMO FLAGS DIFF FINAL; LYMPH % 6.3 % (9.0-44.0); LYMPHOCYTE # 0.8 TH/MM3 (1.0-4.8); MEAN CELL VOLUME 83.1 FL (80.0-100.0); MEAN CORPUSCULAR HEMOGLOBIN 27.8 PG (27.0-34.0); MEAN CORPUSCULAR HGB CONC 33.5 % (32.0-36.0); MONO % 3.7 % (0.0-8.0); NEUT % 89.1 % (16.0-70.0); PLATELET COUNT 237 TH/MM3 (150-450); RED BLOOD COUNT 4.27 MIL/MM3 (4.00-5.30); RED CELL DISTRIBUTION WIDTH 14.6 % (11.6-17.2); WHITE BLOOD COUNT 12.6 TH/MM3 (4.0-11.0)
[2017-10-23 21:16] LABS: APTT (PATIENT) 24.3 SEC (24.3-30.1); PROTHROMBIN TIME - PATIENT 10.5 SEC (9.8-11.6)
[2017-10-23 21:24] LABS: ANION GAP 9 MEQ/L (5-15); AST (GOT) 17 U/L (15-37); BLOOD UREA NITROGEN 52 MG/DL (7-18); CHLORIDE 108 MEQ/L (98-107); GLOMERULAR FILTRATION RATE 12 ML/MIN (>89); MAGNESIUM 1.5 MG/DL (1.5-2.5); POTASSIUM 4.7 MEQ/L (3.5-5.1); SODIUM (NA) 138 MEQ/L (136-145)
[2017-10-23 21:25] LABS: ALT (GPT) 12 U/L (10-53)
[2017-10-23 21:29] LABS: ALKALINE PHOSPHATASE 128 U/L (45-117); TOTAL BILIRUBIN ADULT 0.3 MG/DL (0.2-1.0)
[2017-10-23 21:35] LABS: CREATINE KINASE 53 U/L (26-192)
--- NOTE | 2017-10-23 21:41 | RADRPT ---
EXAM DATE/TIME: 10/23/2017 20:51 [facility] COMPARISON: CHEST SINGLE AP, August 26, 2017, 21:43. INDICATIONS : Chest pain and shortness of breath. MEDICAL HISTORY : Hypertension. Thyroid disease.Dentures. Syncope. Chest pain. Renal disease SURGICAL HISTORY : Cholecystectomy.Tubal ligation. section.Coronary stent ENCOUNTER: Initial ACUITY: 3 days PAIN SCORE: 5/10 LOCATION: Bilateral upper chest FINDINGS: The heart is enlarged. The pulmonary vascular pattern is normal. The lungs are clear. CONCLUSION: Cardiomegaly. No focal infiltrate or pulmonary vascular congestion. Benny Sanders MD on October 23, 2017 at 21:40 Board Certified Radiologist. This report was verified electronically.
--- NOTE | 2017-10-23 21:54 | PD ---
Physical Exam Date Seen by Provider: Oct 23, 2017 Narrative This patient presents with the chief complaint of chest pain Data Data Last Documented VS Vital Signs Date Time Temp Pulse Resp B/P (MAP) Pulse Ox O2 Delivery O2 Flow Rate FiO2 10/23/17 20:40 100 Room Air 10/23/17 20:40 18 10/23/17 19:17 99.0 95 Orders Orders Electrocardiogram (10/23/17 20:39) Ckmb (Isoenzyme) Profile (10/23/17 20:39) Complete Blood Count With Diff (10/23/17 20:39) Comprehensive Metabolic Panel (10/23/17 20:39) Magnesium (Mg) (10/23/17 20:39) Prothrombin Time / Inr (Pt) (10/23/17 20:39) Act Partial Throm Time (Ptt) (10/23/17 20:39) Troponin I (10/23/17 20:39) Lipase (10/23/17 20:39) Chest, Single Ap (10/23/17 20:39) Ecg Monitoring (10/23/17 20:39) Bilateral Bp Monitoring (10/23/17 20:39) Iv Access Insert/Monitor (10/23/17 20:39) Oximetry (10/23/17 20:39) Oxygen Administration (10/23/17 20:39) Aspirin Chew (Aspirin Chew) (10/23/17 20:45) Sodium Chloride 0.9% Flush (Ns Flush) (10/23/17 20:45) Sodium Chlorid 0.9% 500 Ml Inj (Ns 500 M (10/23/17 20:45) Labs Laboratory Tests Test 10/23/17 20:42 White Blood Count 12.6 TH/MM3 Red Blood Count 4.27 MIL/MM3 Hemoglobin 11.9 GM/DL Hematocrit 35.5 % Mean Corpuscular Volume 83.1 FL Mean Corpuscular Hemoglobin 27.8 PG Mean Corpuscular Hemoglobin Concent 33.5 % Red Cell Distribution Width 14.6 % Platelet Count 237 TH/MM3 Mean Platelet Volume 9.2 FL Neutrophils (%) (Auto) 89.1 % Lymphocytes (%) (Auto) 6.3 % Monocytes (%) (Auto) 3.7 % Eosinophils (%) (Auto) 0.2 % Basophils (%) (Auto) 0.7 % Neutrophils # (Auto) 11.2 TH/MM3 Lymphocytes # (Auto) 0.8 TH/MM3 Monocytes # (Auto) 0.5 TH/MM3 Eosinophils # (Auto) 0.0 TH/MM3 Basophils # (Auto) 0.1 TH/MM3 CBC Comment DIFF FINAL Differential Comment Prothrombin Time 10.5 SEC Prothromb Time International Ratio 1.0 RATIO Activated Partial Thromboplast Time 24.3 SEC Blood Urea Nitrogen 52 MG/DL Creatinine 3.95 MG/DL Random Glucose 267 MG/DL Total Protein 7.2 GM/DL Albumin 2.8 GM/DL Calcium Level 10.1 MG/DL Magnesium Level 1.5 MG/DL Alkaline Phosphatase 128 U/L Aspartate Amino Transf (AST/SGOT) 17 U/L Alanine Aminotransferase (ALT/SGPT) 12 U/L Total Bilirubin 0.3 MG/DL Sodium Level 138 MEQ/L Potassium Level 4.7 MEQ/L Chloride Level 108 MEQ/L Carbon Dioxide Level 21.0 MEQ/L Anion Gap 9 MEQ/L Estimat Glomerular Filtration Rate 12 ML/MIN Total Creatine Kinase 53 U/L Troponin I 0.15 NG/ML Lipase 149 U/L MDM Supervised Visit with TIM: Yes Narrative Course I, Dr. Odell, have reviewed the advance practice practitioner's documentation and am in agreement, met with the patient face to face, made the diagnosis, and the medical decision making was done by me. *My assessment and Findings: Patient is awake and alert and does not appear to be in any distress Her EKG shows a sinus tachycardia at 102. No significant ST segment elevation or depression noted. CBC & BMP Diagram 10/23/17 20:42 Total Protein 7.2, Albumin 2.8 L, Calcium Level 10.1, Magnesium Level 1.5, Alkaline Phosphatase 128 H, Aspartate Amino Transf (AST/SGOT) 17, Alanine Aminotransferase (ALT/SGPT) 12, Total Bilirubin 0.3 trop 0.15. This patient has chronic renal failure so a single elevated troponin does not necessarily indicate NSTEMI. It will need to be trended. Diagnosis Primary Impression: NSTEMI (non-ST elevated myocardial infarction) Condition: Stable Roxanne Odell MD Oct 23, 2017 21:54
[2017-10-23] MEDS ORDERED: SODIUM CHLORIDE 0.9% FLUSH 10 ML FLUSH IV FLUSH PRN (22:15)
[2017-10-23] MEDS: HEPARIN SODIUM - SQ 10,000 UNITS/ML VIAL SQ SCH (23:10)
[2017-10-23] MEDS: ACETAMINOPHEN 500 MG CPLT PO PRN (23:10)
[2017-10-24] VITALS (30 sets, daily range): BP systolic 132–210; BP diastolic 65–99; PULSE 60–92; RESP 16–20; TEMP 97.8–98; O2SAT 96–98
[2017-10-24] MEDS ORDERED: DEXTROSE 50% IN WATER 50 ML VIAL(D50) IV PUSH PRN (03:30)
[2017-10-24] MEDS ORDERED: GLUCAGON 1 MG/ML VIAL OTHER PRN (03:30)
--- NOTE | 2017-10-24 03:42 | HHI.HP ---
HPI Service [facility] Primary Care Physician No Primary Care Physician Admission Diagnosis NSTEMI vs angina Diagnoses: Travel History International Travel<30 Days: No Contact w/Intl Traveler <30 Da: No Traveled to Known Affected Are: No History of Present Illness 52-year-old female with a past medical history significant for CAD with STEMI on 07/27/17, hypertension, insulin-dependent diabetes mellitus, hyperlipidemia and hypothyroidism presents to the emergency department with sharp, stabbing substernal and left-sided chest pain with accompanying nausea/vomiting. The patient reports her symptoms were similar to when she had her STEMI in July. During her previous hospitalization, the patient had a cardiac catheterization and 2 stents placed. She reports that she has been noncompliant with her Plavix, as well as all of her other medications, since early September as she does not have a primary care physician to prescribe them. She has also been lost to follow-up. EKG shows sinus tachycardia without ST segment elevations or depressions. Troponin 0.15, baseline unknown. The patient has chronic kidney disease with a creatinine of 3.95 which is baseline for the patient. Review of Systems Denies fever or chills Denies blurry vision, otorrhea, rhinorrhea Denies sore throat and cough Positive chest pain, No palpitations, shortness of breath No abdominal pain Positive N/V Denies muscle pain/weakness No rashes Past Family Social History Past Medical History CAD status post stent placement in July 2017 Hypothyroidism Insulin-dependent diabetes mellitus (patient has not been taking her home insulin) Hypertension Hyperlipidemia Past Surgical History Cardiac catheterization with stent 2 in July 2017 Bilateral tubal ligation Cholecystectomy Reported Medications Reported Meds & Active Scripts Active [Bmp] [id number] Patient needs BMP twice a week until GFR 15ml/min, then once a week or less Blood Glucose Monitoring W/Device (Device) 1 Kit Kit Kit .ROUTE DIRECTED [facility] Insulin Syringe/ 29G X 1/2" 0.3 ml 29 Gauge X 1/2" Mis Box .ROUTE DIRECTED [place] 29GX1/2" 29G X 12Mm (Insulin Pen Needle) 29 Gauge X 1/2" Mis Box SQ DIRECTED Synthroid (Levothyroxine Sodium) 50 Mcg Tab 50 Mcg PO DAILY@0600 30 Days Levemir Inj (Insulin Detemir) 1,000 unit/ 10 ML Vial 10 Units SQ HS 30 Days Do not mix with any other Insulin. Amlodipine (Amlodipine Besylate) 10 Mg Tab 10 Mg PO DAILY Metoprolol Tartrate 50 Mg Tab 50 Mg PO BID Nitrostat SL (Nitroglycerin) 0.4 Mg Subl 0.4 Mg SL UNSCH PRN 30 Days Hydralazine HCl 50 Mg Tablet 100 Mg PO TID 30 Days Atorvastatin (Atorvastatin Calcium) 40 Mg Tab 40 Mg PO HS 30 Days Plavix (Clopidogrel Bisulfate) 75 Mg Tab 75 Mg PO DAILY 30 Days Allergies: Coded Allergies: cephalexin (Verified Allergy, Severe, 10/23/17) Family History Mom with diabetes mellitus Social History [id number] history of smoking, quit July 2017. Denies alcohol, illicit drugs. Physical Exam Vital Signs Vital Signs Date Time Temp Pulse Resp B/P (MAP) Pulse Ox O2 Delivery O2 Flow Rate FiO2 10/24/17 02:14 72 10/24/17 01:04 87 10/24/17 00:45 92 10/23/17 23:35 91 16 170/86 (114) 96 10/23/17 23:10 96 20 198/89 (125) 98 10/23/17 22:43 97 21 10/23/17 22:20 95 18 205/95 (131) 98 Room Air 10/23/17 22:15 96 17 201/94 (129) 98 Room Air 10/23/17 20:40 100 Room Air 10/23/17 20:40 18 100 Room Air 10/23/17 19:17 99.0 95 18 228/100 (142) 95 Room Air Physical Exam GENERAL: Obese, female lying in bed SKIN: No rashes, ecchymoses or lesions. Cool and dry. HEAD: Atraumatic. Normocephalic. No temporal or scalp tenderness. EYES: Pupils equal round and reactive. Extraocular motions intact. No scleral icterus. No injection or drainage. ENT: Nose without bleeding, purulent drainage or septal hematoma. Throat without erythema, tonsillar hypertrophy or exudate. Uvula midline. Airway patent. NECK: Trachea midline. No JVD or lymphadenopathy. Supple, nontender, no meningeal signs. CARDIOVASCULAR: Regular rate and rhythm without murmurs, gallops, or rubs. RESPIRATORY: Distant breath sounds. No wheezes, rales, or rhonchi. GASTROINTESTINAL: Abdomen soft, non-tender, nondistended. No hepato-splenomegaly , or palpable masses. No guarding. MUSCULOSKELETAL: Extremities without clubbing, cyanosis, or edema. No joint tenderness, effusion, or edema noted. No calf tenderness. NEUROLOGICAL: Awake and alert. Cranial nerves II through XII intact. Motor and sensory grossly within normal limits. Normal speech. Laboratory Laboratory Tests Test 10/23/17 20:42 White Blood Count 12.6 Red Blood Count 4.27 Hemoglobin 11.9 Hematocrit 35.5 Mean Corpuscular Volume 83.1 Mean Corpuscular Hemoglobin 27.8 Mean Corpuscular Hemoglobin Concent 33.5 Red Cell Distribution Width 14.6 Platelet Count 237 Mean Platelet Volume 9.2 Neutrophils (%) (Auto) 89.1 Lymphocytes (%) (Auto) 6.3 Monocytes (%) (Auto) 3.7 Eosinophils (%) (Auto) 0.2 Basophils (%) (Auto) 0.7 Neutrophils # (Auto) 11.2 Lymphocytes # (Auto) 0.8 Monocytes # (Auto) 0.5 Eosinophils # (Auto) 0.0 Basophils # (Auto) 0.1 CBC Comment DIFF FINAL Differential Comment Prothrombin Time 10.5 Prothromb Time International Ratio 1.0 Activated Partial Thromboplast Time 24.3 Blood Urea Nitrogen 52 Creatinine 3.95 Random Glucose 267 Total Protein 7.2 Albumin 2.8 Calcium Level 10.1 Magnesium Level 1.5 Alkaline Phosphatase 128 Aspartate Amino Transf (AST/SGOT) 17 Alanine Aminotransferase (ALT/SGPT) 12 Total Bilirubin 0.3 Sodium Level 138 Potassium Level 4.7 Chloride Level 108 Carbon Dioxide Level 21.0 Anion Gap 9 Estimat Glomerular Filtration Rate 12 Total Creatine Kinase 53 Troponin I 0.15 Lipase 149 Result Diagram: 10/23/17204110/23/172041 Caprini VTE Risk Assessment Caprini VTE Risk Assessment: Mod/High Risk (score >= 2) Caprini Risk Assessment Model Point Value = 1 Point Value = 2 Point Value = 3 Point Value = 5 Age 41-60 Minor surgery BMI > 25 kg/m2 Swollen legs Varicose veins or History of unexplained or recurrent spontaneous Oral contraceptives or hormone replacement Sepsis (< 1 month) Serious lung disease, including pneumonia (< 1 month) Abnormal pulmonary function Acute myocardial infarction Congestive heart failure (< 1 month) History of inflammatory bowel disease Medical patient at bed rest Age 61-74 Arthroscopic surgery Major open surgery (> 45 min) Laparoscopic surgery (> 45 min) Malignancy Confined to bed (> 72 hours) Immobilizing plaster cast Central venous access Age >= 75 History of VTE Family history of VTE Factor V Leiden Prothrombin [id number] Lupus anticoagulant Anticardiolipin antibodies Elevated serum homocysteine Heparin-induced thrombocytopenia Other congenital or acquired thrombophilia Stroke (< 1 month) Elective arthroplasty Hip, pelvis, or leg fracture Acute spinal cord injury (< 1 month) Prophylaxis Regimen Total Risk Factor Score Risk Level Prophylaxis Regimen 0-1 Low Early ambulation 2 Moderate Order ONE of the following: *Sequential Compression Device (SCD) *Heparin 5000 units SQ BID 3-4 Higher Order ONE of the following medications: *Heparin 5000 units SQ TID *Enoxaparin/Lovenox 40 mg SQ daily (WT < 150 kg, CrCl > 30 mL/min) *Enoxaparin/Lovenox 30 mg SQ daily (WT < 150 kg, CrCl > 10-29 mL/min) *Enoxaparin/Lovenox 30 mg SQ BID (WT < 150 kg, CrCl > 30 mL/min) AND/OR *Sequential Compression Device (SCD) 5 or more Highest Order ONE of the following medications: *Heparin 5000 units SQ TID (Preferred with Epidurals) *Enoxaparin/Lovenox 40 mg SQ daily (WT < 150 kg, CrCl > 30 mL/min) *Enoxaparin/Lovenox 30 mg SQ daily (WT < 150 kg, CrCl > 10-29 mL/min) *Enoxaparin/Lovenox 30 mg SQ BID (WT < 150 kg, CrCl > 30 mL/min) AND *Sequential Compression Device (SCD) Assessment and Plan Assessment and Plan Assessment/plan: 1. Chest pain/elevated troponin CAD s/p stent placement H/o STEMI HTN/HLD EKG shows sinus tachycardia without ST segment elevations or depressions, reviewed by me Troponin elevated at 0.15, baseline unknown however patient does have chronic kidney disease with a creatinine of 3.95 ACS rule out pending; serial troponins/EKGs Cardiology consulted, appreciate recommendations Restart patient's home medications including Plavix, hydralazine, metoprolol, amlodipine, atorvastatin Echo 07/2017 showed EF of 55-60% Not a candidate for JOSE ROBERTO/ARB given renal function Case management consulted to assist patient in obtaining her medications and establishing with a PCP 2. Chronic kidney disease Creatinine 3.95, baseline Avoid nephrotoxic agents 3. Insulin-dependent diabetes mellitus Patient reports she is supposed to take 10 units of Lantus HS, however she has been noncompliant with this medication SSI, if blood glucose remains elevated restart Lantus 4. Hypothyroidism Continue home Synthroid FEN Heart healthy/ADA diet Electrolytes: Monitor and replete when necessary Heparin Case discussed with ER physician at length Michelle Estrella MD Oct 24, 2017 03:42
[2017-10-24 04:06] LABS: AUTOMATED NEUTROPHIL # 8.9 TH/MM3 (1.8-7.7); BASOPHIL # 0.1 TH/MM3 (0-0.2); BASOPHIL % 0.8 % (0.0-2.0); EOSINOPHIL # 0.2 TH/MM3 (0-0.4); EOSINOPHIL % 1.8 % (0.0-4.0); HEMATOCRIT 30.2 % (35.0-46.0); HEMO FLAGS DIFF FINAL; LYMPH % 16.1 % (9.0-44.0); LYMPHOCYTE # 1.9 TH/MM3 (1.0-4.8); MEAN CELL VOLUME 83.8 FL (80.0-100.0); MEAN CORPUSCULAR HEMOGLOBIN 28.3 PG (27.0-34.0); MEAN CORPUSCULAR HGB CONC 33.8 % (32.0-36.0); MONO % 6.5 % (0.0-8.0); NEUT % 74.8 % (16.0-70.0); PLATELET COUNT 215 TH/MM3 (150-450); RED BLOOD COUNT 3.61 MIL/MM3 (4.00-5.30); RED CELL DISTRIBUTION WIDTH 14.1 % (11.6-17.2); WHITE BLOOD COUNT 11.9 TH/MM3 (4.0-11.0)
[2017-10-24 04:25] LABS: BICARBONATE 22.8 MEQ/L (21.0-32.0); POTASSIUM 4.3 MEQ/L (3.5-5.1)
[2017-10-24] MEDS: LEVOTHYROXINE SODIUM 50 MCG TAB PO SCH (06:28)
[2017-10-24] MEDS: HEPARIN SODIUM - SQ 10,000 UNITS/ML VIAL SQ SCH ×3 (06:28→22:51)
[2017-10-24] MEDS: INSULIN ASPART SUPPLEMENTAL SCALE SQ SCH ×4 (08:00→21:00)
[2017-10-24] MEDS: SODIUM CHLORIDE 0.9% FLUSH 10 ML FLUSH IV FLUSH SCH ×2 (08:39→21:00)
[2017-10-24] MEDS: CLOPIDOGREL 75 MG TAB PO SCH ×2 (08:39→12:58)
[2017-10-24] MEDS: hydrALAZINE HCL 50 MG TAB PO SCH ×3 (08:39→17:52)
[2017-10-24] MEDS ORDERED: METOPROLOL TARTRATE 50 MG TAB PO SCH (09:00)
--- NOTE | 2017-10-24 09:57 | HHI.PR ---
Subjective Remarks No further episodes of chest discomfort since admit. Patient feels a baseline today, other than a cough. Bronchitis may be contributory to her chest symptoms. She has known cardiac disease and had stenting performed approximately 3 months ago. Renal function appears stable, she has chronic kidney disease and this may be contributory to elevated troponin. Troponin elevations are mild and within expected parameters for her chronic kidney disease. Thus far the trend of her troponin elevation is flat. Objective Vital Signs Date Time Temp Pulse Resp B/P (MAP) Pulse Ox O2 Delivery O2 Flow Rate FiO2 10/24/17 07:46 97.9 83 20 210/93 (132) 96 10/24/17 06:18 71 10/24/17 05:07 76 10/24/17 04:25 77 10/24/17 03:48 97.9 81 16 174/93 (120) 96 10/24/17 03:48 78 10/24/17 02:14 72 10/24/17 01:04 87 10/24/17 00:45 92 10/23/17 23:35 91 16 170/86 (114) 96 10/23/17 23:10 96 20 198/89 (125) 98 10/23/17 22:43 97 21 10/23/17 22:20 95 18 205/95 (131) 98 Room Air 10/23/17 22:15 96 17 201/94 (129) 98 Room Air 10/23/17 20:40 100 Room Air 10/23/17 20:40 18 100 Room Air 10/23/17 19:17 99.0 95 18 228/100 (142) 95 Room Air I/O 10/23/17 10/23/17 10/23/17 10/24/17 10/24/17 10/24/17 07:00 15:00 23:00 07:00 15:00 23:00 Intake Total 500 ml 120 ml Output Total 200 ml Balance 500 ml -80 ml Intake Oral 120 ml IV Total 500 ml Output Urine Total 200 ml Result Diagram: 10/24/1734210/24/17342 Objective Remarks GENERAL: NAD, A&Ox3 HEAD: Normocephalic. NECK: Supple, trachea midline. No lymphadenopathy. EYES: No scleral icterus. No injection or drainage. CARDIOVASCULAR: Regular rate and rhythm without murmurs, gallops, or rubs. RESPIRATORY: Breath sounds equal bilaterally. No accessory muscle use. GASTROINTESTINAL: Abdomen soft, non-tender, nondistended. MUSCULOSKELETAL: No cyanosis, or edema. SKIN: Warm and dry. NEURO: No focal neurological deficitis. A/P Problem List: (1) Chest pain ICD Code: R07.9 - Chest pain, unspecified (2) Troponin level elevated ICD Code: R74.8 - Abnormal levels of other serum enzymes Assessment and Plan Assessment and Plan 52-year-old female admitted secondary to chest pain, with elevated troponin. Chronic kidney disease present at baseline. Chest pain elevated troponin CAD History of STEMI s/p stent placement 3 months ago Cardiology consulted Continue Plavix, hydralazine, metoprolol, amlodipine, atorvastatin A/P R contraindicated by renal function Continue to monitor cardiac enzymes Monitor clinically for recurrence of chest pain Increased risk is present if contrast needed, given her chronic kidney disease HTN/HLD Continue hydralazine Continue metoprolol Continue amlodipine Continue atorvastatin Follow blood pressures Chronic kidney disease Creatinine is staying near baseline (baseline creatinine is approximately 3.95) Avoid nephrotoxic agents Diabetes mellitus type 2 Follow blood sugars Insulin sliding scale Diabetic diet Hypothyroidism Continue Synthroid Follows in outpatient DVT prophylaxis Heparin Anatoly Yusuf MD Oct 24, 2017 09:57
[2017-10-24] MEDS ORDERED: CARVEDILOL 12.5 MG TAB PO ONE (12:00)
[2017-10-24] MEDS ORDERED: CLOPIDOGREL 300 MG TAB PO ONE (12:00)
--- NOTE | 2017-10-24 12:10 | MB ---
cc: ADAM STARK DO DATE OF CONSULTATION: 10/24/2017. REASON FOR CONSULTATION: Chest pain, hypertensive emergency, elevated troponin. HISTORY OF PRESENT ILLNESS: Heather Clifton is a pleasant 52-year-old female who presented to the [facility] Emergency Room on October 23, 2017 due to chest pain. Upon arrival, she was found to have a blood pressure of 228/100. Her blood pressure has been somewhat treated and she is down to 174/93 and feels much better without chest pain or shortness of breath. On discussion with her, she has been unable to get any of her prescriptions for the past month as she does not have a primary care physician to prescribe them. On seeing her, she is currently hemodynamically stable without chest pain or shortness of breath. PAST MEDICAL HISTORY: 1. Coronary artery disease. 2. Hypothyroidism. 3. Insulin-dependent diabetes mellitus. 4. Hypertension. 5. Hyperlipidemia. PAST SURGICAL HISTORY: 1. Cardiac catheterization (July 27, 2017). Left main with 25% disease proximally. Left circumflex large vessel with diffuse disease providing two obtuse marginals. The left anterior descending is diffusely diseased with 90% stenosis and eventually 100% stenosis involving the first diagonal branch status post Synergy drug-eluting stent (2.5 x 38). Right coronary artery with mild luminal irregularities. 2. section. 3. Bilateral tubal ligation. 4. Cholecystectomy. ALLERGIES: 1. CEPHALEXIN. MEDICATIONS: 1. Plavix 75 milligrams daily. 2. Lipitor 40 milligrams every night. 3. Hydralazine 100 milligrams three times a day. 4. Nitro sublingual as needed for chest pain. 5. Metoprolol tartrate 50 milligrams twice a day. 6. Norvasc 10 milligrams daily. 7. Levemir 10 units every night. 8. Synthroid 50 micrograms daily. FAMILY HISTORY: Denies premature coronary artery disease or sudden cardiac within the family. SOCIAL HISTORY: The patient previously smoked but quit in July of 2017. Denies alcohol or drug abuse. REVIEW OF SYSTEMS Fourteen systems were reviewed including osteopathic with pertinent positives and negatives as above; otherwise negative. PHYSICAL EXAMINATION: VITAL SIGNS: Temperature 97.9, heart rate 81, blood pressure 174/93, respirations 16, pulse oximetry 96% on room air. GENERAL: In general the patient appears well and in no acute distress. Awake, alert and oriented times four. HEAD, EYES, EARS, NOSE, THROAT: Extraocular muscles intact. Mucous membranes moist. NECK: The neck is supple. No JVD at 45 degrees. No carotid bruits heard bilaterally. Carotid upstroke is brisk in nature. HEART: Regular rate and rhythm. Positive first and second heart sounds with no noted murmurs, gallops or rubs. LUNGS: Clear to auscultation bilaterally. No wheezes, rales or rhonchi. ABDOMEN: The abdomen is soft, nontender and nondistended. No organomegaly noted. EXTREMITIES: No clubbing, cyanosis or edema. Femoral and distal pulses are intact bilaterally. NEUROLOGIC: No focal deficits. SKIN: Warm, dry and intact. OSTEOPATHIC: Osteopathically, no kyphoscoliosis, lordosis or paraspinal tender points. LAB WORK: Hemoglobin 10.2, hematocrit 30.2, platelet count 215,000. Potassium 4.3, BUN 53, creatinine 3.99. Troponin 0.16. EKGS: Electrocardiogram (October 24, 2017 at 0237): Sinus rhythm, nonspecific S-T-T wave changes. IMPRESSIONS: 1. Hypertensive emergency. 2. Chest pain secondary to accelerated hypertension. 3. Mildly elevated troponin most likely due to accelerated hypertension as well as chronic kidney disease. 4. Chronic kidney disease stage IV to V. 5. History of coronary artery disease with a history of recent STEMI status post drug-eluting stent to the left anterior descending. 6. Hypertension. 7. Hyperlipidemia. 8. Diabetes mellitus. RECOMMENDATIONS: 1. Ms. Clifton presented with chest pain and this is most likely due to her hypertensive urgency. She does have a mildly elevated troponin but this is overall flat and is most likely also due to the hypertensive emergency as well as her chronic kidney disease. 2. I do not believe that this represents an acute coronary syndrome. 3. My biggest concern is that she has been off her medications for over a month, and so I will plan on re-loading her with her Plavix. 4. I will also plan on discontinuing her metoprolol and starting her on carvedilol to try to help control her blood pressure more. 5. She felt like she should go home today and I explained to her that she should stay at least another 24 hours for better blood pressure control. 6. Overall she needs to find a primary care physician outpatient to follow up her blood pressure. Further recommendations will be made based on the hospital course. Thank you for allowing me to see Heather Clifton. If there are any questions, please do not hesitate to call. Adam LOZADA/JCC /11:37 AM /11:51 AM
[2017-10-24] MEDS: ACETAMINOPHEN 500 MG CPLT PO PRN (13:18)
--- NOTE | 2017-10-24 13:24 | EKG ---
Date Performed: 10/23/2017 Time Performed: 19:26:53 PTAGE: 52 years EKG: SINUS TACHYCARDIA Nonspecific ST-T wave change ABNORMAL RHYTHM ECG PREVIOUS TRACING : 08/26/2017 20.45 Since previous tracing, heart rate is faster, otherwise no significant change. DOCTOR: Homar Recio Interpretating Date/Time 10/24/2017 13:22:40
--- NOTE | 2017-10-24 13:30 | EKG ---
Date Performed: 10/24/2017 Time Performed: 02:37:14 PTAGE: 52 years EKG: Sinus rhythm Nonspecific ST-T wave change Abnormal ECG PREVIOUS TRACING 10/23/2017 Since previous tracing, there is slight improvement in the ST-T wa ve changes anterolaterally in V5 and V6. DOCTOR: Homar Recio Interpretating Date/Time 10/24/2017 13:28:32
[2017-10-24] MEDS ORDERED: cloNIDine HCL 0.1 MG TAB PO PRN (15:15)
[2017-10-24] MEDS ORDERED: ZOLPIDEM TARTRATE 10 MG TAB PO PRN (19:45)
[2017-10-24] MEDS ORDERED: ATORVASTATIN 40 MG TAB PO SCH (21:00)
[2017-10-24] MEDS: CARVEDILOL 12.5 MG TAB PO SCH (21:20)
[2017-10-25] VITALS (12 sets, daily range): BP systolic 133–143; BP diastolic 60–65; PULSE 60–70; RESP 17–19; TEMP 97.4–97.9; O2SAT 96–98
[2017-10-25] MEDS: LEVOTHYROXINE SODIUM 50 MCG TAB PO SCH (06:26)
[2017-10-25] MEDS: HEPARIN SODIUM - SQ 10,000 UNITS/ML VIAL SQ SCH (06:26)
[2017-10-25 07:16] LABS: AUTOMATED NEUTROPHIL # 4.7 TH/MM3 (1.8-7.7); BASOPHIL # 0.1 TH/MM3 (0-0.2); BASOPHIL % 1.3 % (0.0-2.0); EOSINOPHIL # 0.5 TH/MM3 (0-0.4); EOSINOPHIL % 6.8 % (0.0-4.0); HEMATOCRIT 27.9 % (35.0-46.0); HEMO FLAGS DIFF FINAL; LYMPH % 17.3 % (9.0-44.0); LYMPHOCYTE # 1.2 TH/MM3 (1.0-4.8); MEAN CELL VOLUME 83.7 FL (80.0-100.0); MEAN CORPUSCULAR HEMOGLOBIN 28.8 PG (27.0-34.0); MEAN CORPUSCULAR HGB CONC 34.4 % (32.0-36.0); MONO % 9.4 % (0.0-8.0); NEUT % 65.2 % (16.0-70.0); PLATELET COUNT 181 TH/MM3 (150-450); RED BLOOD COUNT 3.33 MIL/MM3 (4.00-5.30); RED CELL DISTRIBUTION WIDTH 14.3 % (11.6-17.2); WHITE BLOOD COUNT 7.1 TH/MM3 (4.0-11.0)
[2017-10-25 07:48] LABS: ALKALINE PHOSPHATASE 90 U/L (45-117); ALT (GPT) 12 U/L (10-53); ANION GAP 11 MEQ/L (5-15); AST (GOT) 8 U/L (15-37); BICARBONATE 20.3 MEQ/L (21.0-32.0); BLOOD UREA NITROGEN 65 MG/DL (7-18); CHLORIDE 108 MEQ/L (98-107); GLOMERULAR FILTRATION RATE 11 ML/MIN (>89); SODIUM (NA) 139 MEQ/L (136-145); TOTAL BILIRUBIN ADULT 0.2 MG/DL (0.2-1.0)
[2017-10-25] MEDS: INSULIN ASPART SUPPLEMENTAL SCALE SQ SCH (08:00)
[2017-10-25] MEDS: CARVEDILOL 12.5 MG TAB PO SCH (08:40)
[2017-10-25] MEDS: hydrALAZINE HCL 50 MG TAB PO SCH (08:40)
[2017-10-25] MEDS: SODIUM CHLORIDE 0.9% FLUSH 10 ML FLUSH IV FLUSH SCH (08:41)
[2017-10-25] MEDS ORDERED: CLOPIDOGREL 75 MG TAB PO SCH (09:00)
[2017-10-25] MEDS ORDERED: CARV12.5 PO ×2 (09:27→10:11)
[2017-10-25] MEDS ORDERED: CLON.1 PO ×2 (09:27→10:11)
[2017-10-25] MEDS ORDERED: PLAV75TA29 PO (09:46)
[2017-10-25] MEDS ORDERED: LEVEMIR SQ (10:11)
[2017-10-25] MEDS ORDERED: ATOR40TA16 PO (10:11)
[2017-10-25] MEDS ORDERED: LEVO.05 PO (10:11)
[2017-10-25] MEDS ORDERED: HYDR-3800 PO (10:11)
[2017-10-25] MEDS ORDERED: NITR0.4S SL (10:11)
[2017-10-25] MEDS ORDERED: AMLO10TA2 PO (10:11)
--- NOTE | 2017-10-25 10:20 | PD.CARD.PN ---
Subjective Subjective Remarks No events overnight No chest pain/SOB Blood pressure better Objective Medications Current Medications Medications (Trade) Dose Ordered Sig/Stephan Route Start Time Stop Time Status Last Admin (NS Flush) 2 ml BID IV FLUSH 10/24/17 09:00 10/25/17 08:41 (NS Flush) 2 ml UNSCH PRN IV FLUSH 10/23/17 22:15 (Tylenol) 500 mg Q4H PRN PO 10/23/17 22:15 10/24/17 13:18 (Heparin Inj) 5,000 units Q8H SQ 10/23/17 23:00 10/25/17 06:26 (D50w (Vial) Inj) 50 ml UNSCH PRN IV PUSH 10/24/17 03:30 (Glucagon Inj) 1 mg UNSCH PRN OTHER 10/24/17 03:30 (NovoLOG SUPPLEMENTAL SCALE) 1 ACHS SLIDING SCALE SQ 10/24/17 08:00 10/25/17 08:00 (Norvasc) 10 mg DAILY PO 10/24/17 09:00 10/25/17 08:40 (Lipitor) 40 mg HS PO 10/24/17 21:00 10/24/17 21:20 (Apresoline) 100 mg TID PO 10/24/17 09:00 10/25/17 08:40 (Synthroid) 50 mcg DAILY@0700 PO 10/24/17 07:00 10/25/17 06:26 (Coreg) 12.5 mg Q12HR PO 10/24/17 21:00 10/25/17 08:40 (Catapres) 0.1 mg Q6H PRN PO 10/24/17 15:15 10/24/17 15:26 (Ambien) 10 mg HS PRN PO 10/24/17 19:45 10/24/17 21:20 (Plavix) 75 mg DAILY PO 10/25/17 09:00 10/25/17 09:47 Vital Signs / I&O Vital Signs Date Time Temp Pulse Resp B/P (MAP) Pulse Ox O2 Delivery O2 Flow Rate FiO2 10/25/17 10:00 69 10/25/17 09:00 68 10/25/17 08:00 70 10/25/17 07:40 97.4 66 17 136/62 (86) 96 10/25/17 07:00 62 10/25/17 06:17 64 10/25/17 05:08 65 10/25/17 03:50 97.9 70 19 143/65 (91) 97 10/25/17 03:50 64 10/25/17 02:07 60 10/25/17 01:19 63 10/25/17 00:21 61 10/24/17 23:30 98.0 67 17 132/74 (93) 98 10/24/17 23:30 65 10/24/17 22:44 60 10/24/17 21:30 74 10/24/17 20:30 70 10/24/17 19:30 97.8 64 18 143/65 (91) 98 10/24/17 19:30 67 10/24/17 18:25 98 21 10/24/17 18:00 65 10/24/17 17:00 72 10/24/17 16:30 168/81 (110) 10/24/17 16:00 68 10/24/17 15:42 97.9 72 20 201/99 (133) 98 10/24/17 15:00 69 10/24/17 14:00 70 10/24/17 13:41 96 10/24/17 13:00 64 10/24/17 12:00 66 10/24/17 11:56 97.8 68 20 167/77 (107) 96 10/24/17 11:00 73 I/O 10/24/17 10/24/17 10/24/17 10/25/17 10/25/17 10/25/17 07:00 15:00 23:00 07:00 15:00 23:00 Intake Total 120 ml 840 ml 240 ml Output Total 200 ml 600 ml 350 ml Balance -80 ml 240 ml -110 ml Intake Oral 120 ml 840 ml 240 ml Output Urine Total 200 ml 600 ml 350 ml Physical Exam GENERAL: NAD, AAOx3 SKIN: Warm and dry. HEAD: Atraumatic. Normocephalic. EYES: Pupils equal and round. No scleral icterus. No injection or drainage. ENT: No nasal bleeding or discharge. Mucous membranes pink and moist. NECK: Trachea midline. No JVD. CARDIOVASCULAR: Regular rate and rhythm. RESPIRATORY: No accessory muscle use. Clear to auscultation. Breath sounds equal bilaterally. GASTROINTESTINAL: Abdomen soft, non-tender, nondistended. Hepatic and splenic margins not palpable. MUSCULOSKELETAL: Extremities without clubbing, cyanosis, or edema. No obvious deformities. NEUROLOGICAL: Awake and alert. No obvious cranial nerve deficits. Motor grossly within normal limits. Five out of 5 muscle strength in the arms and legs. Normal speech. PSYCHIATRIC: Appropriate mood and affect; insight and judgment normal. Laboratory Laboratory Tests Test 10/24/17 10:55 10/25/17 06:10 Total Creatine Kinase 44 U/L Troponin I 0.15 NG/ML White Blood Count 7.1 TH/MM3 Red Blood Count 3.33 MIL/MM3 Hemoglobin 9.6 GM/DL Hematocrit 27.9 % Mean Corpuscular Volume 83.7 FL Mean Corpuscular Hemoglobin 28.8 PG Mean Corpuscular Hemoglobin Concent 34.4 % Red Cell Distribution Width 14.3 % Platelet Count 181 TH/MM3 Mean Platelet Volume 9.1 FL Neutrophils (%) (Auto) 65.2 % Lymphocytes (%) (Auto) 17.3 % Monocytes (%) (Auto) 9.4 % Eosinophils (%) (Auto) 6.8 % Basophils (%) (Auto) 1.3 % Neutrophils # (Auto) 4.7 TH/MM3 Lymphocytes # (Auto) 1.2 TH/MM3 Monocytes # (Auto) 0.7 TH/MM3 Eosinophils # (Auto) 0.5 TH/MM3 Basophils # (Auto) 0.1 TH/MM3 CBC Comment DIFF FINAL Differential Comment Blood Urea Nitrogen 65 MG/DL Creatinine 4.38 MG/DL Random Glucose 168 MG/DL Total Protein 5.9 GM/DL Albumin 2.4 GM/DL Calcium Level 9.5 MG/DL Alkaline Phosphatase 90 U/L Aspartate Amino Transf (AST/SGOT) 8 U/L Alanine Aminotransferase (ALT/SGPT) 12 U/L Total Bilirubin 0.2 MG/DL Sodium Level 139 MEQ/L Potassium Level 4.0 MEQ/L Chloride Level 108 MEQ/L Carbon Dioxide Level 20.3 MEQ/L Anion Gap 11 MEQ/L Estimat Glomerular Filtration Rate 11 ML/MIN Assessment and Plan Problem List: (1) CKD (chronic kidney disease) ICD Codes: N18.9 - Chronic kidney disease, unspecified (2) Hypertensive urgency ICD Codes: I16.0 - Hypertensive urgency (3) Troponin level elevated ICD Codes: R74.8 - Abnormal levels of other serum enzymes (4) Chest pain ICD Codes: R07.9 - Chest pain, unspecified (5) Hyperlipidemia ICD Codes: E78.5 - Hyperlipidemia, unspecified (6) Diabetes ICD Codes: E11.9 - Type 2 diabetes mellitus without complications Status: Chronic (7) CAD (coronary artery disease) ICD Codes: I25.10 - Atherosclerotic heart disease of [place] coronary artery without angina pectoris Assessment and Plan 1) HTN emergency Blood pressure better controlled 2) Elevated trop [place] to be due to elevated blood pressure with CKD 3) CAD Recent LAD stent Con't ASA/Plavix 4) Non-compliance due to inability to get to a doctor and scripts ran out Not on medications for past month Loaded with Plavix Asked primary to write for Plavix for 12 months to make sure she does not run out 5) Cardiovascularly stable for discharge, no further work up Sohail Juarez DO Oct 25, 2017 10:20
--- NOTE | 2017-10-25 10:36 | HHI.DS ---
Discharge Summary Admission Date Oct 23, 2017 at 22:04 Discharge Date: Oct 25, 2017 Admitting Diagnosis NSTEMI vs angina (1) Hypertensive urgency ICD Code: I16.0 - Hypertensive urgency (2) CKD (chronic kidney disease) ICD Code: N18.9 - Chronic kidney disease, unspecified (3) Hyperlipidemia ICD Code: E78.5 - Hyperlipidemia, unspecified (4) Diabetes ICD Code: E11.9 - Type 2 diabetes mellitus without complications Status: Chronic (5) CAD (coronary artery disease) ICD Code: I25.10 - Atherosclerotic heart disease of [place] coronary artery without angina pectoris (6) Troponin level elevated ICD Code: R74.8 - Abnormal levels of other serum enzymes (7) Chest pain ICD Code: R07.9 - Chest pain, unspecified Procedures None Brief History - From Admission 52-year-old female with a past medical history significant for CAD with STEMI on 07/27/17, hypertension, insulin-dependent diabetes mellitus, hyperlipidemia and hypothyroidism presents to the emergency department with sharp, stabbing substernal and left-sided chest pain with accompanying nausea/vomiting. The patient reports her symptoms were similar to when she had her STEMI in July. During her previous hospitalization, the patient had a cardiac catheterization and 2 stents placed. She reports that she has been noncompliant with her Plavix, as well as all of her other medications, since early September as she does not have a primary care physician to prescribe them. She has also been lost to follow-up. EKG shows sinus tachycardia without ST segment elevations or depressions. Troponin 0.15, baseline unknown. The patient has chronic kidney disease with a creatinine of 3.95 which is baseline for the patient. CBC/BMP: 10/25/17 0610 10/25/17 0610 Significant Findings Laboratory Tests Test 10/23/17 20:42 10/24/17 03:43 10/24/17 10:55 10/25/17 06:10 White Blood Count 12.6 TH/MM3 (4.0-11.0) 11.9 TH/MM3 (4.0-11.0) Neutrophils (%) (Auto) 89.1 % (16.0-70.0) 74.8 % (16.0-70.0) Lymphocytes (%) (Auto) 6.3 % (9.0-44.0) Neutrophils # (Auto) 11.2 TH/MM3 (1.8-7.7) 8.9 TH/MM3 (1.8-7.7) Lymphocytes # (Auto) 0.8 TH/MM3 (1.0-4.8) Blood Urea Nitrogen 52 MG/DL (7-18) 53 MG/DL (7-18) 65 MG/DL (7-18) Creatinine 3.95 MG/DL (0.50-1.00) 3.99 MG/DL (0.50-1.00) 4.38 MG/DL (0.50-1.00) Random Glucose 267 MG/DL (74-106) 151 MG/DL (74-106) 168 MG/DL (74-106) Albumin 2.8 GM/DL (3.4-5.0) 2.4 GM/DL (3.4-5.0) Alkaline Phosphatase 128 U/L (45-117) Chloride Level 108 MEQ/L (98-107) 108 MEQ/L (98-107) 108 MEQ/L (98-107) Estimat Glomerular Filtration Rate 12 ML/MIN (>89) 12 ML/MIN (>89) 11 ML/MIN (>89) Troponin I 0.15 NG/ML (0.02-0.05) 0.16 NG/ML (0.02-0.05) 0.15 NG/ML (0.02-0.05) Red Blood Count 3.61 MIL/MM3 (4.00-5.30) 3.33 MIL/MM3 (4.00-5.30) Hemoglobin 10.2 GM/DL (11.6-15.3) 9.6 GM/DL (11.6-15.3) Hematocrit 30.2 % (35.0-46.0) 27.9 % (35.0-46.0) Monocytes (%) (Auto) 9.4 % (0.0-8.0) Eosinophils (%) (Auto) 6.8 % (0.0-4.0) Eosinophils # (Auto) 0.5 TH/MM3 (0-0.4) Total Protein 5.9 GM/DL (6.4-8.2) Aspartate Amino Transf (AST/SGOT) 8 U/L (15-37) Carbon Dioxide Level 20.3 MEQ/L (21.0-32.0) Hospital Course Mrs. Clifton is a 52-year-old female. She has chronic kidney disease at baseline. She came in secondary to chest pain with hypertensive urgency and elevated troponin. Troponin elevation state flat and are likely secondary to chronic kidney disease. She has poor renal function at baseline and her creatinines range from 3.5 to 4.5 at baseline. Negative cardiac workup. Hypertensive urgency was treated with adjustments in baseline medications and when necessary clonidine. Blood pressures are not under control. Renal function is within baseline range. Outpatient follow-up recommended in a prescription for BMP to obtain in 1-2 weeks as provided to the patient. New Prescriptions and refills on all prescriptions are provided. Medically stable for discharge today. Pt Condition on Discharge: Stable Discharge Disposition: Discharge Home Discharge Time: <= 30 minutes Discharge Instructions DIET: Follow Instructions for: Heart Healthy Diet Activities you can perform: Regular-No Restrictions Follow up Referrals: Cardiology - 2 Weeks PCP Follow-up - 2 Weeks New Medications: Carvedilol (Coreg) 12.5 Mg Tab 12.5 MG PO Q12HR for Blood Pressure Management, #60 TAB 11 Refills Clonidine (Catapres) 0.1 Mg Tab 0.1 MG PO Q6H PRN for Systolic BP greater than 160, #30 TAB 11 Refills Clopidogrel (Plavix) 75 Mg Tab 75 MG PO DAILY for Blood Clot Prevention, #30 TAB 11 Refills Continued Medications: Amlodipine (Amlodipine) 10 Mg Tab 10 MG PO DAILY for Blood Pressure Management, #30 TAB 11 Refills (This prescription has been renewed) Atorvastatin (Atorvastatin) 40 Mg Tab 40 MG PO HS for Cholesterol Management for 30 Days, #30 TAB 11 Refills (This prescription has been renewed) Hydralazine HCl (Hydralazine HCl) 50 Mg Tablet 100 MG PO TID for Blood Pressure Management for 30 Days, #180 TAB 11 Refills ( This prescription has been renewed) Insulin Detemir Inj (Levemir Inj) 1,000 unit/ 10 ML Vial 10 UNITS SQ HS for Blood Sugar Management for 30 Days, #1 INJECTION 11 Refills ( This prescription has been renewed) Do not mix with any other Insulin. Levothyroxine (Synthroid) 50 Mcg Tab 50 MCG PO DAILY@0600 for Thyroid for 30 Days, #30 TAB 11 Refills (This prescription has been renewed) Nitroglycerin SL (Nitrostat SL) 0.4 Mg Subl 0.4 MG SL UNSCH PRN for CHEST PAIN for 30 Days, #1 BOTTLE 11 Refills (This prescription has been renewed) Discontinued Medications: Clopidogrel (Plavix) 75 Mg Tab 75 MG PO DAILY for Blood Clot Prevention for 30 Days, #30 TAB Metoprolol Tartrate (Metoprolol Tartrate) 50 Mg Tab 50 MG PO BID for Blood Pressure Management, #60 TAB 0 Refills Anatoly Yusuf MD Oct 25, 2017 10:36
== END 2017-10-25 12:21 | disposition home or self-care (01) ==
LOC: NEPC 19:16 → INTOOBSV 22:04 → NEDA 22:04 → HCPC 23:30
PROVIDERS: ADMIT Hospitalist; ATTEND Hospitalist
DX: I16.1 Hypertensive emergency (principal); R07.89 Other chest pain; I25.2 Old myocardial infarction; I25.10 Atherosclerotic heart disease of native coronary artery without angina pectoris; I13.10 Hypertensive heart and chronic kidney disease without heart failure, with stage 1 through stage 4 chronic kidney disease, or unspecified chronic kidney disease; N18.9 Chronic kidney disease, unspecified; E11.22 Type 2 diabetes mellitus with diabetic chronic kidney disease; E03.9 Hypothyroidism, unspecified; E78.5 Hyperlipidemia, unspecified; R11.2 Nausea with vomiting, unspecified; I51.7 Cardiomegaly; Z95.5 Presence of coronary angioplasty implant and graft; Z87.891 Personal history of nicotine dependence; Z91.19 Patient's noncompliance with other medical treatment and regimen; Z79.4 Long term (current) use of insulin
CPT/HCPCS: 71010; 80048; 80053; 82550; 82948; 83690; 83735; 84484; 85025; 85610; 85730; 93005; 96360; 96372; 99285; G0378; J1644; J1815; J7040

== ENCOUNTER 2018-03-03 14:38 | Inpatient (IN) | payer OTHER ==
[~2018-03-03] VITALS: Ht 165.1 cm; Wt 108.9 kg
[~2018-03-03 14:38] MED LIST changes: +CARV12.5 PO; +CLON.1 PO; -METO50TA PO
[2018-03-03 14:40] VITALS: BP 245/112; PULSE 83; RESP 17; TEMP 98.6; O2SAT 97
[2018-03-03] MEDS ORDERED: SODIUM CHLOR 0.9% 1000 ML INJ 1,000 ML IV SCH (14:59)
[2018-03-03] MEDS ORDERED: hydrALAZINE HCL 20 MG/ML VIAL IV PUSH ONE ×3 (15:00→16:30)
[2018-03-03] MEDS ORDERED: PANTOPRAZOLE SODIUM 40 MG VIAL IVP ONE (15:00)
[2018-03-03] MEDS ORDERED: SODIUM CHLORIDE 0.9% FLUSH 10 ML FLUSH IV FLUSH PRN (15:00)
[2018-03-03] MEDS ORDERED: ONDANSETRON HCL 4 MG/2 ML VIAL IVP ONE (15:00)
[2018-03-03 15:29] VITALS: O2SAT 98
--- NOTE | 2018-03-03 15:45 | PD ---
HPI Chief Complaint: GI Complaint Time Seen by Provider: 14:54 Travel History International Travel<30 days: No Contact w/Intl Traveler<30days: No Traveled to known affect area: No History of Present Illness HPI Patient is a 52-year-old female presenting to the emergency department for evaluation of nausea, vomiting, abdominal pain. Patient states it started this morning. She denies any fevers, sick contacts, contaminated foods. She further denies any chest pain, shortness of breath, dysuria. Patient reports a history of hypertension, she states she was unable to keep her blood pressure medications down this morning. Symptom onset was sudden, symptoms are severe in nature. Patient is actively vomiting. She reports abdominal pain is tender diffusely, she reports it is a 3 out of 10 and sore. There are no alleviating factors. PFSH Past Medical History Hx Anticoagulant Therapy: Yes (PLAVIX AND ASA) Heart Rhythm Problems: Yes Cardiovascular Problems: Yes (07/27/17- STENT PLACED) Chest Pain: Yes Diabetes: Yes Gastrointestinal Disorders: Yes Genitourinary: Yes Hypertension: Yes Respiratory: Yes Immunizations Current: Yes Thyroid Disease: Yes Tubal Ligation: Yes Past Surgical History Appendectomy: Yes Section: Yes Cholecystectomy: Yes Coronary Stent: Yes (2X - 07/2017) Social History Alcohol Use: No (QUIT) Tobacco Use: No (QUIT) Substance Use: No Allergies-Medications (Allergen,Severity, Reaction): Coded Allergies: cephalexin (Verified Allergy, Severe, 10/23/17) Reported Meds & Prescriptions Reported Meds & Active Scripts Active Catapres (Clonidine) 0.1 Mg Tab 0.1 Mg PO Q6H PRN Coreg (Carvedilol) 12.5 Mg Tab 12.5 Mg PO Q12HR Synthroid (Levothyroxine Sodium) 50 Mcg Tab 50 Mcg PO DAILY@0600 30 Days Levemir Inj (Insulin Detemir) 1,000 unit/ 10 ML Vial 10 Units SQ HS 30 Days Do not mix with any other Insulin. Amlodipine (Amlodipine Besylate) 10 Mg Tab 10 Mg PO DAILY Nitrostat SL (Nitroglycerin) 0.4 Mg Subl 0.4 Mg SL UNSCH PRN 30 Days Hydralazine HCl 50 Mg Tablet 100 Mg PO TID 30 Days Atorvastatin (Atorvastatin Calcium) 40 Mg Tab 40 Mg PO HS 30 Days Plavix (Clopidogrel Bisulfate) 75 Mg Tab 75 Mg PO DAILY [Bmp] 2XWEEK Patient needs BMP twice a week until GFR 15ml/min, then once a week or less Blood Glucose Monitoring W/Device (Device) 1 Kit Kit Kit .ROUTE DIRECTED [facility] Insulin Syringe/ 29G X 1/2" 0.3 ml 29 Gauge X 1/2" Mis Box .ROUTE DIRECTED [place] 29GX1/2" 29G X 12Mm (Insulin Pen Needle) 29 Gauge X 1/2" Mis Box SQ DIRECTED Review of Systems Except as stated in HPI: all other systems reviewed are Neg General / Constitutional: No: Fever, Chills HENT: No: Headaches Cardiovascular: No: Chest Pain or Discomfort Respiratory: No: Shortness of Breath Gastrointestinal: Positive: Nausea, Vomiting, Abdominal Pain, Loss of Appetite , No: Changes in Bowel Habits Genitourinary: No: Dysuria Musculoskeletal: No: Myalgias Neurologic: No: Weakness, Dizziness, Syncope Physical Exam Narrative GENERAL: Overweight, well-developed, alert female. Appears uncomfortable, no acute distress. SKIN: Warm and dry. HEAD: Atraumatic. Normocephalic. EYES: Pupils equal and round. No scleral icterus. No injection or drainage. ENT: No nasal bleeding or discharge. Mucous membranes pink and moist. NECK: Trachea midline. No JVD. CARDIOVASCULAR: Regular rate and rhythm. RESPIRATORY: No accessory muscle use. Clear to auscultation. Breath sounds equal bilaterally. GASTROINTESTINAL: Abdomen soft, mildly tender diffusely, nondistended. Hepatic and splenic margins not palpable. Positive bowel sounds MUSCULOSKELETAL: Extremities without clubbing, cyanosis, or edema. No obvious deformities. NEUROLOGICAL: Awake and alert. No obvious cranial nerve deficits. Motor grossly within normal limits. Five out of 5 muscle strength in the arms and legs. Normal speech. PSYCHIATRIC: Appropriate mood and affect; insight and judgment normal. Data Data Last Documented VS Vital Signs Date Time Temp Pulse Resp B/P (MAP) Pulse Ox O2 Delivery O2 Flow Rate FiO2 03/03/18 15:56 92 18 190/85 (120) 98 Room Air 03/03/18 14:40 98.6 Orders Orders Complete Blood Count With Diff (03/03/18 14:59) Comprehensive Metabolic Panel (03/03/18 14:59) Lipase (03/03/18 14:59) Urinalysis - C+S If Indicated (03/03/18 14:59) Iv Access Insert/Monitor (03/03/18 14:59) Ecg Monitoring (03/03/18 14:59) Oximetry (03/03/18 14:59) NPO (03/03/18 14:59) Ondansetron Inj (Zofran Inj) (03/03/18 15:00) Pantoprazole Inj (Protonix Inj) (03/03/18 15:00) Sodium Chlor 0.9% 1000 Ml Inj (Ns 1000 M (03/03/18 14:59) Sodium Chloride 0.9% Flush (Ns Flush) (03/03/18 15:00) Electrocardiogram (03/03/18 14:59) Hydralazine Inj (Apresoline Inj) (03/03/18 15:00) Troponin I (03/03/18 15:13) Hydralazine Inj (Apresoline Inj) (03/03/18 15:15) Prochlorperazine Inj (Compazine Inj) (03/03/18 16:00) Hydralazine Inj (Apresoline Inj) (03/03/18 16:30) Ondansetron Inj (Zofran Inj) (03/03/18 17:15) Nicardipine Inj (Cardene Inj) (03/03/18 17:45) Nicardipine Inj (Cardene Inj) (03/03/18 17:45) Creatine Kinase (Cpk) (03/03/18 18:37) Ckmb (Isoenzyme) Profile (03/03/18 18:37) Ckmb (Isoenzyme) Profile (03/03/18 21:15) Ckmb (Isoenzyme) Profile (03/04/18 03:15) Ckmb (Isoenzyme) Profile (03/04/18 09:15) Creatine Kinase (Cpk) (03/03/18 21:15) Creatine Kinase (Cpk) (03/04/18 03:15) Creatine Kinase (Cpk) (03/04/18 09:15) Troponin I (03/03/18 21:15) Troponin I (03/04/18 03:15) Troponin I (03/04/18 09:15) Cbc No Diff, Includes Plts (03/04/18 05:00) Cbc No Diff, Includes Plts (03/05/18 05:00) Cbc No Diff, Includes Plts (03/06/18 05:00) Cbc No Diff, Includes Plts (03/07/18 05:00) Cbc No Diff, Includes Plts (03/08/18 05:00) Cbc No Diff, Includes Plts (03/09/18 05:00) Cbc No Diff, Includes Plts (03/10/18 05:00) Basic Metabolic Panel (Bmp) (03/04/18 05:00) Basic Metabolic Panel (Bmp) (03/05/18 05:00) Basic Metabolic Panel (Bmp) (03/06/18 05:00) Basic Metabolic Panel (Bmp) (03/07/18 05:00) Basic Metabolic Panel (Bmp) (03/08/18 05:00) Basic Metabolic Panel (Bmp) (03/09/18 05:00) Basic Metabolic Panel (Bmp) (03/10/18 05:00) Inpatient Certification (03/03/18 18:37) Resp Ezpap/Pep Therapy (03/03/18 18:37) Resp Acapella/Pep/Chest Vibra (03/03/18 18:37) Resp Incentive Spirometry (03/03/18 18:37) Bedside Glucose AYANNA.CSUGAR&03 (03/03/18 18:37) Blood Glucose Goal (Criteria) (03/03/18 18:37) Hypoglycemia 51 - 69 Mg/Dl (03/03/18 18:37) Hypoglycemia 50 Mg/Dl Or < (03/03/18 18:37) Notify Dr: Other (03/03/18 18:37) Dextrose 50% In [place] (Vial) Inj (D50w (Vi (03/03/18 18:45) Insulin Human Reg Supp Scale (Novolin R (03/03/18 21:00) Code Status (03/03/18 18:39) Vital Signs (Adult) AYANNA.Q1H (03/03/18 18:39) Activity Bed Rest (03/03/18 18:39) Elevate Head Of Bed (03/03/18 18:39) Neuro Checks . ORDERED (03/03/18 18:39) Sodium Chlor 0.9% 1000 Ml Inj (Ns 1000 M (03/03/18 18:39) Ondansetron Inj (Zofran Inj) (03/03/18 18:45) Albuterol-Ipratropium Neb (Duoneb Neb) (03/03/18 18:45) Plane Tender / Telemetry AYANNA.Q8H (03/03/18 18:39) Heparin Inj (Heparin Inj) (03/03/18 18:45) Scd Bilateral/Knee High AYANNA.BID (03/03/18 18:39) ^ Initiate Protocol (03/03/18 18:39) Instruction (03/03/18 18:39) Misc Nursing Information (03/03/18 18:45) Chlorhexidine 2% Cloth (Chlorhexidine 2% (03/04/18 04:00) Chlorhexidine 2% Cloth (Chlorhexidine 2% (03/03/18 18:45) Mrsa Pcr Surveillance (03/03/18 18:39) Admit Order (Ed Use Only) (03/03/18 18:41) Amlodipine (Norvasc) (03/03/18 18:45) Atorvastatin (Lipitor) (03/03/18 21:00) Carvedilol (Coreg) (03/03/18 21:00) Clopidogrel (Plavix) (03/04/18 09:00) Hydralazine (Apresoline) (03/04/18 09:00) Insulin Detemir Inj (Levemir Inj) (03/03/18 21:00) Levothyroxine (Synthroid) (03/04/18 06:00) Labs Laboratory Tests Test 03/03/18 15:15 03/03/18 17:10 White Blood Count 12.8 TH/MM3 Red Blood Count 4.47 MIL/MM3 Hemoglobin 11.9 GM/DL Hematocrit 35.6 % Mean Corpuscular Volume 79.7 FL Mean Corpuscular Hemoglobin 26.6 PG Mean Corpuscular Hemoglobin Concent 33.4 % Red Cell Distribution Width 15.4 % Platelet Count 200 TH/MM3 Mean Platelet Volume 8.9 FL Neutrophils (%) (Auto) 88.5 % Lymphocytes (%) (Auto) 7.1 % Monocytes (%) (Auto) 2.7 % Eosinophils (%) (Auto) 1.1 % Basophils (%) (Auto) 0.6 % Neutrophils # (Auto) 11.3 TH/MM3 Lymphocytes # (Auto) 0.9 TH/MM3 Monocytes # (Auto) 0.3 TH/MM3 Eosinophils # (Auto) 0.1 TH/MM3 Basophils # (Auto) 0.1 TH/MM3 CBC Comment DIFF FINAL Differential Comment Blood Urea Nitrogen 55 MG/DL Creatinine 3.72 MG/DL Random Glucose 244 MG/DL Total Protein 8.1 GM/DL Albumin 3.6 GM/DL Calcium Level 10.7 MG/DL Alkaline Phosphatase 103 U/L Aspartate Amino Transf (AST/SGOT) 12 U/L Alanine Aminotransferase (ALT/SGPT) 15 U/L Total Bilirubin 0.3 MG/DL Sodium Level 141 MEQ/L Potassium Level 4.5 MEQ/L Chloride Level 112 MEQ/L Carbon Dioxide Level 19.5 MEQ/L Anion Gap 10 MEQ/L Estimat Glomerular Filtration Rate 13 ML/MIN Troponin I 0.06 NG/ML Lipase 256 U/L Urine Color LIGHT-YELLOW Urine Turbidity HAZY Urine pH 7.0 Urine Specific [place] 1.012 Urine Protein 300 mg/dL Urine Glucose (UA) 300 mg/dL Urine Ketones NEG mg/dL Urine Occult Blood SMALL Urine Nitrite NEG Urine Bilirubin NEG Urine Urobilinogen LESS THAN 2.0 MG/DL Urine Leukocyte Esterase NEG Urine RBC 7 /hpf Urine WBC 2 /hpf Urine Squamous Epithelial Cells 7 /hpf Urine Amorphous Sediment RARE Urine Bacteria RARE /hpf Urine Hyaline Casts 3 /lpf Microscopic Urinalysis Comment CULT NOT INDICATED MDM Medical Decision Making Medical Screen Exam Complete: Yes Emergency Medical Condition: Yes Interpretation(s) Laboratory Tests Test 03/03/18 15:15 03/03/18 17:10 White Blood Count 12.8 TH/MM3 Red Blood Count 4.47 MIL/MM3 Hemoglobin 11.9 GM/DL Hematocrit 35.6 % Mean Corpuscular Volume 79.7 FL Mean Corpuscular Hemoglobin 26.6 PG Mean Corpuscular Hemoglobin Concent 33.4 % Red Cell Distribution Width 15.4 % Platelet Count 200 TH/MM3 Mean Platelet Volume 8.9 FL Neutrophils (%) (Auto) 88.5 % Lymphocytes (%) (Auto) 7.1 % Monocytes (%) (Auto) 2.7 % Eosinophils (%) (Auto) 1.1 % Basophils (%) (Auto) 0.6 % Neutrophils # (Auto) 11.3 TH/MM3 Lymphocytes # (Auto) 0.9 TH/MM3 Monocytes # (Auto) 0.3 TH/MM3 Eosinophils # (Auto) 0.1 TH/MM3 Basophils # (Auto) 0.1 TH/MM3 CBC Comment DIFF FINAL Differential Comment Blood Urea Nitrogen 55 MG/DL Creatinine 3.72 MG/DL Random Glucose 244 MG/DL Total Protein 8.1 GM/DL Albumin 3.6 GM/DL Calcium Level 10.7 MG/DL Alkaline Phosphatase 103 U/L Aspartate Amino Transf (AST/SGOT) 12 U/L Alanine Aminotransferase (ALT/SGPT) 15 U/L Total Bilirubin 0.3 MG/DL Sodium Level 141 MEQ/L Potassium Level 4.5 MEQ/L Chloride Level 112 MEQ/L Carbon Dioxide Level 19.5 MEQ/L Anion Gap 10 MEQ/L Estimat Glomerular Filtration Rate 13 ML/MIN Troponin I 0.06 NG/ML Lipase 256 U/L Urine Color LIGHT-YELLOW Urine Turbidity HAZY Urine pH 7.0 Urine Specific [place] 1.012 Urine Protein 300 mg/dL Urine Glucose (UA) 300 mg/dL Urine Ketones NEG mg/dL Urine Occult Blood SMALL Urine Nitrite NEG Urine Bilirubin NEG Urine Urobilinogen LESS THAN 2.0 MG/DL Urine Leukocyte Esterase NEG Urine RBC 7 /hpf Urine WBC 2 /hpf Urine Squamous Epithelial Cells 7 /hpf Urine Amorphous Sediment RARE Urine Bacteria RARE /hpf Urine Hyaline Casts 3 /lpf Microscopic Urinalysis Comment CULT NOT INDICATED Vital Signs Date Time Temp Pulse Resp B/P (MAP) Pulse Ox O2 Delivery O2 Flow Rate FiO2 03/03/18 15:29 98 Room Air 03/03/18 14:40 98.6 83 17 245/112 (156 97 Differential Diagnosis Gastroenteritis versus obstruction versus cholecystitis versus metabolic abnormality versus hypertensive urgency versus less likely ACS Narrative Course Patient is a 52-year-old female presenting for evaluation of nausea, vomiting, abdominal pain. She is hypertensive on arrival, she has not taken any blood pressure medication secondary to vomiting. Labs and imaging ordered and pending IV access established, patient placed on telemetry monitoring continuous pulse oximetry. Hydralazine 10 mg IV 1 dose ordered in addition to Zofran and IV fluids. Patient continued to complain of nausea, she was given a dose of Compazine. Her blood pressure was reassessed and continued to be elevated 204 systolic, second dose of hydralazine was ordered. CBC with white count 12.8 with left shift Chemistry with BUN and creatinine 35/3.72, since stable when compared to priors , patient has a history of chronic kidney disease. Troponin 0.06, this is also lower than prior values. Urinalysis unremarkable Patient's blood pressure continued to be elevated, and she was placed on a nicardipine drip. Please see my attending physician's documentation. Patient will be admitted to [facility] [place], my attending physician spoke with Dr. Castro, the hand bander. Admit orders placed. Diagnosis Primary Impression: Hypertensive urgency Additional Impression: Nausea and vomiting Qualified Codes: R11.2 - Nausea with vomiting, unspecified Admitting Information Admitting Physician Requests: Admit Condition: Stable RoqueCorry [facility] Mar 03, 2018 15:45
[2018-03-03 15:49] LABS: AUTOMATED NEUTROPHIL # 11.3 TH/MM3 (1.8-7.7); BASOPHIL # 0.1 TH/MM3 (0-0.2); BASOPHIL % 0.6 % (0.0-2.0); EOSINOPHIL # 0.1 TH/MM3 (0-0.4); EOSINOPHIL % 1.1 % (0.0-4.0); HEMATOCRIT 35.6 % (35.0-46.0); HEMOGLOBIN 11.9 GM/DL (11.6-15.3); LYMPH % 7.1 % (9.0-44.0); LYMPHOCYTE # 0.9 TH/MM3 (1.0-4.8); MEAN CELL VOLUME 79.7 FL (80.0-100.0); MEAN CORPUSCULAR HEMOGLOBIN 26.6 PG (27.0-34.0); MEAN CORPUSCULAR HGB CONC 33.4 % (32.0-36.0); MEAN PLATELET VOLUME 8.9 FL (7.0-11.0); MONO % 2.7 % (0.0-8.0); MONOCYTE # 0.3 TH/MM3 (0-0.9); NEUT % 88.5 % (16.0-70.0); PLATELET COUNT 200 TH/MM3 (150-450); RED BLOOD COUNT 4.47 MIL/MM3 (4.00-5.30); RED CELL DISTRIBUTION WIDTH 15.4 % (11.6-17.2); WHITE BLOOD COUNT 12.8 TH/MM3 (4.0-11.0)
[2018-03-03 15:56] VITALS: BP 190/85; PULSE 92; RESP 18; O2SAT 98
[2018-03-03] MEDS ORDERED: PROCHLORPERAZINE INJ 10 MG/2 ML VIAL IV PUSH ONE (16:00)
[2018-03-03 16:09] LABS: ALBUMIN 3.6 GM/DL (3.4-5.0); ALT (GPT) 15 U/L (10-53); AST (GOT) 12 U/L (15-37); BICARBONATE 19.5 MEQ/L (21.0-32.0); BLOOD UREA NITROGEN 55 MG/DL (7-18); CALCIUM 10.7 MG/DL (8.5-10.1); CHLORIDE 112 MEQ/L (98-107); CREATININE 3.72 MG/DL (0.50-1.00); GLOMERULAR FILTRATION RATE 13 ML/MIN (>89); GLUCOSE,RANDOM 244 MG/DL (74-106); SODIUM (NA) 141 MEQ/L (136-145)
[2018-03-03 16:11] LABS: ALKALINE PHOSPHATASE 103 U/L (45-117); TOTAL BILIRUBIN ADULT 0.3 MG/DL (0.2-1.0); TOTAL PROTEIN 8.1 GM/DL (6.4-8.2)
[2018-03-03] MEDS ORDERED: ONDANSETRON HCL 4 MG/2 ML VIAL IV PUSH ONE (17:15)
[2018-03-03] MEDS ORDERED: niCARdipine INJ 25 MG in SODIUM CHLOR 0.9% 250 ML INJ 240 ML IV PRN (17:45)
[2018-03-03 17:50] VITALS: BP 179/83; PULSE 88; RESP 18; O2SAT 96
[2018-03-03 18:25] LABS: AMORPHOUS SEDIMENT, URINE RARE; BACTERIA, URINE RARE /hpf; BILIRUBIN, URINE NEG (NEG); BLOOD, URINE SMALL (NEG); GLUCOSE,URINE 300 mg/dL (NEG); HYALINE CAST, URINE 3 /lpf (RARE); KETONE, URINE NEG (NEG); NITRITE,URINE NEG (NEG); SQUAMOUS EPITHELIAL CELL URINE 7 /hpf (0-5); URINE COLOR LIGHT-YELLOW (YELLW/STRAW); URINE LEUKOCYTE ESTERASE NEG (NEG)
--- NOTE | 2018-03-03 18:51 | HHI.HP ---
HPI Service Critical Care Medicine Primary Care Physician No Primary Care Physician Admission Diagnosis Hypertensive urgency, nausea and vomiting Diagnosis: Chief Complaint: nausea Travel History International Travel<30 Days: No Contact w/Intl Traveler <30 Da: No Traveled to Known Affected Are: No History of Present Illness This is a 52yF with a history of CAD who was otherwise in her normal state of health and woke up today with severe nausea, vomiting. she states is bilious, nonbloody. she also has diarrhea which is non-bloody and light brown in color. she had meatballs for dinner last night but does not think there is an association. she denies fever, chills. no other sick contacts. she does state that the last time she had a heart attack it felt like this with nausea. she denies chest pain, shortness of breath, PENNY, orthopnea. denies headache, blurry vision. denies any other changes to her health. she states she does not have a PCP or a home care music therapist. she states the last time she was admitted, she got 12 month refills on her medications. ROS is otherwise negative. In the emergency department, she was noted to have Cr 3.72 which is around her baseline, Cr 0.06 which is below her baseline, and blood pressure in the 250s systolic which was not responsive to multiple iv boluses of hydralazine. she was started on nicardipine drip for hypertensive urgency. Review of Systems Constitutional: DENIES: Diaphoretic episodes, Fatigue, Fever, Weight gain, Weight loss, Chills, Dizziness Eyes: DENIES: Blurred vision Respiratory: DENIES: Cough, Hemoptysis, Sputum production, Shortness of breath Cardiovascular: DENIES: Chest pain, Palpitations, Syncope, Dyspnea on Exertion , PND, Lower Extremity Edema, Orthopnea Gastrointestinal: COMPLAINS OF: Diarrhea, Nausea, Vomiting, DENIES: Abdominal pain, Black stools, Bloody stools, Constipation Neurologic: DENIES: Headache, Localized weakness Past Family Social History Allergies: Coded Allergies: cephalexin (Verified Allergy, Severe, 10/23/17) Past Medical History CAD GERD Diabetes HTN Hypothyroidism Past Surgical History PCI in 07/27/17 x 2 Appendectomy delivery Cholecystectomy Reported Medications Catapres (Clonidine) 0.1 Mg Tab 0.1 Mg PO Q6H PRN Coreg (Carvedilol) 12.5 Mg Tab 12.5 Mg PO Q12HR Synthroid (Levothyroxine Sodium) 50 Mcg Tab 50 Mcg PO DAILY@0600 30 Days Levemir Inj (Insulin Detemir) 1,000 unit/ 10 ML Vial 10 Units SQ HS 30 Days Do not mix with any other Insulin. Amlodipine (Amlodipine Besylate) 10 Mg Tab 10 Mg PO DAILY Nitrostat SL (Nitroglycerin) 0.4 Mg Subl 0.4 Mg SL UNSCH PRN 30 Days Hydralazine HCl 50 Mg Tablet 100 Mg PO TID 30 Days Atorvastatin (Atorvastatin Calcium) 40 Mg Tab 40 Mg PO HS 30 Days Plavix (Clopidogrel Bisulfate) 75 Mg Tab 75 Mg PO DAILY [Bmp] 2XWEEK Patient needs BMP twice a week until GFR 15ml/min, then once a week or less Blood Glucose Monitoring W/Device (Device) 1 Kit Kit Kit .ROUTE DIRECTED [facility] Insulin Syringe/ 29G X 1/2" 0.3 ml 29 Gauge X 1/2" Mis Box .ROUTE DIRECTED Pen Floris 29GX1/2" 29G X 12Mm (Insulin Pen Needle) 29 Gauge X 1/2" Mis Box SQ DIRECTED Active Ordered Medications See MAR Family History reviewed and found to be noncontributory to her acute illness. Social History prior smoker, prior used etoh but not currently. Physical Exam Vital Signs Vital Signs Date Time Temp Pulse Resp B/P (MAP) Pulse Ox O2 Delivery O2 Flow Rate FiO2 03/03/18 15:56 92 18 190/85 (120) 98 Room Air 03/03/18 15:29 98 Room Air 03/03/18 14:40 98.6 83 17 245/112 (156) 97 Physical Exam gen: middle-aged female, lying in bed heent: perrl. nc. at. mmm. neck: no jvd. trachea midline. chest: equal chest rise. nc o2. no accessory muscle use cv: normal rate, regular rhythm. sinus abd: soft, obese, nontender, nondistended. no guarding or rebound. no hepatosplenomegaly. extr: warm, well-perfused. distal pulses 2+. no clubbing or cyanosis neuro: RASS 0. GCS 15. no focal deficits. follows commands. Laboratory Laboratory Tests Test 03/03/18 15:15 03/03/18 17:10 White Blood Count 12.8 Red Blood Count 4.47 Hemoglobin 11.9 Hematocrit 35.6 Mean Corpuscular Volume 79.7 Mean Corpuscular Hemoglobin 26.6 Mean Corpuscular Hemoglobin Concent 33.4 Red Cell Distribution Width 15.4 Platelet Count 200 Mean Platelet Volume 8.9 Neutrophils (%) (Auto) 88.5 Lymphocytes (%) (Auto) 7.1 Monocytes (%) (Auto) 2.7 Eosinophils (%) (Auto) 1.1 Basophils (%) (Auto) 0.6 Neutrophils # (Auto) 11.3 Lymphocytes # (Auto) 0.9 Monocytes # (Auto) 0.3 Eosinophils # (Auto) 0.1 Basophils # (Auto) 0.1 CBC Comment DIFF FINAL Differential Comment Blood Urea Nitrogen 55 Creatinine 3.72 Random Glucose 244 Total Protein 8.1 Albumin 3.6 Calcium Level 10.7 Alkaline Phosphatase 103 Aspartate Amino Transf (AST/SGOT) 12 Alanine Aminotransferase (ALT/SGPT) 15 Total Bilirubin 0.3 Sodium Level 141 Potassium Level 4.5 Chloride Level 112 Carbon Dioxide Level 19.5 Anion Gap 10 Estimat Glomerular Filtration Rate 13 Troponin I 0.06 Lipase 256 Urine Color LIGHT-YELLOW Urine Turbidity HAZY Urine pH 7.0 Urine Specific [place] 1.012 Urine Protein 300 Urine Glucose (UA) 300 Urine Ketones NEG Urine Occult Blood SMALL Urine Nitrite NEG Urine Bilirubin NEG Urine Urobilinogen LESS THAN 2.0 Urine Leukocyte Esterase NEG Urine RBC 7 Urine WBC 2 Urine Squamous Epithelial Cells 7 Urine Amorphous Sediment RARE Urine Bacteria RARE Urine Hyaline Casts 3 Microscopic Urinalysis Comment CULT NOT INDICATED Result Diagram: 03/03/18 1515 03/03/18 1515 Caprini VTE Risk Assessment Caprini VTE Risk Assessment: Mod/High Risk (score >= 2) Caprini Risk Assessment Model Point Value = 1 Point Value = 2 Point Value = 3 Point Value = 5 Age 41-60 Minor surgery BMI > 25 kg/m2 Swollen legs Varicose veins or History of unexplained or recurrent spontaneous Oral contraceptives or hormone replacement Sepsis (< 1 month) Serious lung disease, including pneumonia (< 1 month) Abnormal pulmonary function Acute myocardial infarction Congestive heart failure (< 1 month) History of inflammatory bowel disease Medical patient at bed rest Age 61-74 Arthroscopic surgery Major open surgery (> 45 min) Laparoscopic surgery (> 45 min) Malignancy Confined to bed (> 72 hours) Immobilizing plaster cast Central venous access Age >= 75 History of VTE Family history of VTE Factor V Leiden Prothrombin [id number] Lupus anticoagulant Anticardiolipin antibodies Elevated serum homocysteine Heparin-induced thrombocytopenia Other congenital or acquired thrombophilia Stroke (< 1 month) Elective arthroplasty Hip, pelvis, or leg fracture Acute spinal cord injury (< 1 month) Prophylaxis Regimen Total Risk Factor Score Risk Level Prophylaxis Regimen 0-1 Low Early ambulation 2 Moderate Order ONE of the following: *Sequential Compression Device (SCD) *Heparin 5000 units SQ BID 3-4 Higher Order ONE of the following medications: *Heparin 5000 units SQ TID *Enoxaparin/Lovenox 40 mg SQ daily (WT < 150 kg, CrCl > 30 mL/min) *Enoxaparin/Lovenox 30 mg SQ daily (WT < 150 kg, CrCl > 10-29 mL/min) *Enoxaparin/Lovenox 30 mg SQ BID (WT < 150 kg, CrCl > 30 mL/min) AND/OR *Sequential Compression Device (SCD) 5 or more Highest Order ONE of the following medications: *Heparin 5000 units SQ TID (Preferred with Epidurals) *Enoxaparin/Lovenox 40 mg SQ daily (WT < 150 kg, CrCl > 30 mL/min) *Enoxaparin/Lovenox 30 mg SQ daily (WT < 150 kg, CrCl > 10-29 mL/min) *Enoxaparin/Lovenox 30 mg SQ BID (WT < 150 kg, CrCl > 30 mL/min) AND *Sequential Compression Device (SCD) Assessment and Plan Assessment and Plan Assessment: 52yF with history of CAD who presents with nausea and vomiting and hypertensive urgency. No concerning signs or symptoms from an abdominal standpoint. will admit for close monitoring of blood pressure in the setting of ischemic strain on the left ventricle. nicardipine infusion and add back home anti-hypertensives. will trend cardiac enzymes, but low suspicion for ACS. Plan: Hypertensive Urgency - add back home anti-hypertensives by mouth - nicardipine infusion for goal sbp < 180 - prn hydralazine, labetalol iv CAD Elevated troponins - likely secondary to demand ischemia and poor renal clearance from high afterload/htn - will not heparinize unless troponins trend up significantly - will give lopressor 5mg iv x 1 to help better control HR - htn management per above - already on ASA, plavix. will continue. Diabetes - SSI - continue home levemir. Hypothyroidism - continue home synthroid Hyperlipidemia - continue home statin. Will consult hospitalist services to assume care. Mike Oro MD Mar 03, 2018 18:51
[2018-03-03 18:52] VITALS: BP 187/85; PULSE 90; RESP 18; O2SAT 96
--- NOTE | 2018-03-03 18:52 | PD ---
Data Data Last Documented VS Vital Signs Date Time Temp Pulse Resp B/P (MAP) Pulse Ox O2 Delivery O2 Flow Rate FiO2 03/03/18 15:56 92 18 190/85 (120) 98 Room Air 03/03/18 14:40 98.6 Orders Orders Complete Blood Count With Diff (03/03/18 14:59) Comprehensive Metabolic Panel (03/03/18 14:59) Lipase (03/03/18 14:59) Urinalysis - C+S If Indicated (03/03/18 14:59) Iv Access Insert/Monitor (03/03/18 14:59) Ecg Monitoring (03/03/18 14:59) Oximetry (03/03/18 14:59) NPO (03/03/18 14:59) Ondansetron Inj (Zofran Inj) (03/03/18 15:00) Pantoprazole Inj (Protonix Inj) (03/03/18 15:00) Sodium Chlor 0.9% 1000 Ml Inj (Ns 1000 M (03/03/18 14:59) Sodium Chloride 0.9% Flush (Ns Flush) (03/03/18 15:00) Electrocardiogram (03/03/18 14:59) Hydralazine Inj (Apresoline Inj) (03/03/18 15:00) Troponin I (03/03/18 15:13) Hydralazine Inj (Apresoline Inj) (03/03/18 15:15) Prochlorperazine Inj (Compazine Inj) (03/03/18 16:00) Hydralazine Inj (Apresoline Inj) (03/03/18 16:30) Ondansetron Inj (Zofran Inj) (03/03/18 17:15) Nicardipine Inj (Cardene Inj) (03/03/18 17:45) Nicardipine Inj (Cardene Inj) (03/03/18 17:45) Creatine Kinase (Cpk) (03/03/18 18:37) Ckmb (Isoenzyme) Profile (03/03/18 18:37) Ckmb (Isoenzyme) Profile (03/03/18 21:15) Ckmb (Isoenzyme) Profile (03/04/18 03:15) Ckmb (Isoenzyme) Profile (03/04/18 09:15) Creatine Kinase (Cpk) (03/03/18 21:15) Creatine Kinase (Cpk) (03/04/18 03:15) Creatine Kinase (Cpk) (03/04/18 09:15) Troponin I (03/03/18 21:15) Troponin I (03/04/18 03:15) Troponin I (03/04/18 09:15) Cbc No Diff, Includes Plts (03/04/18 05:00) Cbc No Diff, Includes Plts (03/05/18 05:00) Cbc No Diff, Includes Plts (03/06/18 05:00) Cbc No Diff, Includes Plts (03/07/18 05:00) Cbc No Diff, Includes Plts (03/08/18 05:00) Cbc No Diff, Includes Plts (03/09/18 05:00) Cbc No Diff, Includes Plts (03/10/18 05:00) Basic Metabolic Panel (Bmp) (03/04/18 05:00) Basic Metabolic Panel (Bmp) (03/05/18 05:00) Basic Metabolic Panel (Bmp) (03/06/18 05:00) Basic Metabolic Panel (Bmp) (03/07/18 05:00) Basic Metabolic Panel (Bmp) (03/08/18 05:00) Basic Metabolic Panel (Bmp) (03/09/18 05:00) Basic Metabolic Panel (Bmp) (03/10/18 05:00) Inpatient Certification (03/03/18 18:37) Resp Ezpap/Pep Therapy (03/03/18 18:37) Resp Acapella/Pep/Chest Vibra (03/03/18 18:37) Resp Incentive Spirometry (03/03/18 18:37) Bedside Glucose AYANNA.CSUGAR&03 (03/03/18 18:37) Blood Glucose Goal (Criteria) (03/03/18 18:37) Hypoglycemia 51 - 69 Mg/Dl (03/03/18 18:37) Hypoglycemia 50 Mg/Dl Or < (03/03/18 18:37) Notify Dr: Other (03/03/18 18:37) Dextrose 50% In Joshua (Vial) Inj (D50w (Vi (03/03/18 18:45) Insulin Human Reg Supp Scale (Novolin R (03/03/18 21:00) Code Status (03/03/18 18:39) Vital Signs (Adult) AYANNA.Q1H (03/03/18 18:39) Activity Bed Rest (03/03/18 18:39) Elevate Head Of Bed (03/03/18 18:39) Neuro Checks . ORDERED (03/03/18 18:39) Sodium Chlor 0.9% 1000 Ml Inj (Ns 1000 M (03/03/18 18:39) Ondansetron Inj (Zofran Inj) (03/03/18 18:45) Albuterol-Ipratropium Neb (Duoneb Neb) (03/03/18 18:45) Leather Splitter / Telemetry AYANNA.Q8H (03/03/18 18:39) Heparin Inj (Heparin Inj) (03/03/18 18:45) Scd Bilateral/Knee High AYANNA.BID (03/03/18 18:39) ^ Initiate Protocol (03/03/18 18:39) Instruction (03/03/18 18:39) Misc Nursing Information (03/03/18 18:45) Chlorhexidine 2% Cloth (Chlorhexidine 2% (03/04/18 04:00) Chlorhexidine 2% Cloth (Chlorhexidine 2% (03/03/18 18:45) Mrsa Pcr Surveillance (03/03/18 18:39) Admit Order (Ed Use Only) (03/03/18 18:41) Amlodipine (Norvasc) (03/03/18 18:45) Atorvastatin (Lipitor) (03/03/18 21:00) Carvedilol (Coreg) (03/03/18 21:00) Clopidogrel (Plavix) (03/04/18 09:00) Hydralazine (Apresoline) (03/04/18 09:00) Insulin Detemir Inj (Levemir Inj) (03/03/18 21:00) Levothyroxine (Synthroid) (03/04/18 06:00) Labs Laboratory Tests Test 03/03/18 15:15 03/03/18 17:10 White Blood Count 12.8 TH/MM3 Red Blood Count 4.47 MIL/MM3 Hemoglobin 11.9 GM/DL Hematocrit 35.6 % Mean Corpuscular Volume 79.7 FL Mean Corpuscular Hemoglobin 26.6 PG Mean Corpuscular Hemoglobin Concent 33.4 % Red Cell Distribution Width 15.4 % Platelet Count 200 TH/MM3 Mean Platelet Volume 8.9 FL Neutrophils (%) (Auto) 88.5 % Lymphocytes (%) (Auto) 7.1 % Monocytes (%) (Auto) 2.7 % Eosinophils (%) (Auto) 1.1 % Basophils (%) (Auto) 0.6 % Neutrophils # (Auto) 11.3 TH/MM3 Lymphocytes # (Auto) 0.9 TH/MM3 Monocytes # (Auto) 0.3 TH/MM3 Eosinophils # (Auto) 0.1 TH/MM3 Basophils # (Auto) 0.1 TH/MM3 CBC Comment DIFF FINAL Differential Comment Blood Urea Nitrogen 55 MG/DL Creatinine 3.72 MG/DL Random Glucose 244 MG/DL Total Protein 8.1 GM/DL Albumin 3.6 GM/DL Calcium Level 10.7 MG/DL Alkaline Phosphatase 103 U/L Aspartate Amino Transf (AST/SGOT) 12 U/L Alanine Aminotransferase (ALT/SGPT) 15 U/L Total Bilirubin 0.3 MG/DL Sodium Level 141 MEQ/L Potassium Level 4.5 MEQ/L Chloride Level 112 MEQ/L Carbon Dioxide Level 19.5 MEQ/L Anion Gap 10 MEQ/L Estimat Glomerular Filtration Rate 13 ML/MIN Troponin I 0.06 NG/ML Lipase 256 U/L Urine Color LIGHT-YELLOW Urine Turbidity HAZY Urine pH 7.0 Urine Specific [place] 1.012 Urine Protein 300 mg/dL Urine Glucose (UA) 300 mg/dL Urine Ketones NEG mg/dL Urine Occult Blood SMALL Urine Nitrite NEG Urine Bilirubin NEG Urine Urobilinogen LESS THAN 2.0 MG/DL Urine Leukocyte Esterase NEG Urine RBC 7 /hpf Urine WBC 2 /hpf Urine Squamous Epithelial Cells 7 /hpf Urine Amorphous Sediment RARE Urine Bacteria RARE /hpf Urine Hyaline Casts 3 /lpf Microscopic Urinalysis Comment CULT NOT INDICATED MDM Supervised Visit with TIM: Yes Narrative Course The history, exam, and medical decision-making in the associated mid-level provider note were completed with my assistance. I reviewed and agree with the findings presented. I attest that I had a [id number] encounter with the patient on the same day, and personally performed and documented my assessment and findings in the medical record. *My assessment and Findings: Is a 52-year-old woman presents emergency department with nausea and vomiting. This is been severe and intractable throughout the morning. States it feels like when she had her heart attack in the past. No loose stools. No sick contacts. Only a little bit abdominal pain when she is retching. No headache. No chest pain. Blood pressure is markedly elevated in triage. States she was unable to take her medications at home. I think this is likely a hypertensive crisis. I think the blood pressures driving to vomiting. I do not think this is an intra-abdominal process. She is a fairly benign abdominal exam when she is not retching. She had partial response to IV hydralazine. Persistent vomiting elevated blood pressures. Was started on nicardipine drip for hypertensive emergency. Critical Care Narrative Aggregate critical care time was 30 minutes. Time to perform other separately billable procedures was not included in the critical care time. My time did not include minutes spent treating any other patients simultaneously or on activities that did not directly contribute to the patient's treatment. The services I provided to this patient were to treat and/or prevent clinically significant deterioration that could result in: , disability, bleed, permanent morbidity from stroke, other. I provided critical care services requiring my management, as noted below: Chart data review, documentation time, medication orders and management, vital sign assessments/reviewing monitor data, ordering and reviewing lab tests, ordering and interpreting/reviewing x-rays and diagnostic studies, care of the patient and discussion of the patient with the admitting physicians. Gasper Iqbal MD Mar 03, 2018 18:52
[2018-03-03] MEDS ORDERED: METOPROLOL TARTRATE 5 MG/5 ML VIAL IV PUSH ONE (19:13)
[2018-03-03] MEDS ORDERED: DEXTROSE 50% IN WATER 50 ML VIAL(D50) IV PUSH PRN ×2 (19:15→19:30)
[2018-03-03] MEDS ORDERED: RESP: ALBUTEROL 2.5 MG/IPRATROPIUM 0.5 MG NEB (PRN) INH (19:15)
[2018-03-03] MEDS ORDERED: NURSING INFORMATION XX SCH (19:15)
[2018-03-03] MEDS ORDERED: GLUCAGON 1 MG/ML VIAL OTHER PRN (19:30)
[2018-03-03] MEDS ORDERED: CHLORHEXIDINE GLUCONATE 2 % 1 PACK (2 CLOTHS) TOP PRN (19:30)
[2018-03-03] MEDS: HEPARIN SODIUM - SQ 10,000 UNITS/ML VIAL SQ SCH (19:42)
[2018-03-03] MEDS: ATORVASTATIN 40 MG TAB PO SCH (21:00)
[2018-03-03] MEDS: niCARdipine INJ 25 MG in SODIUM CHLOR 0.9% 250 ML INJ 240 ML IV PRN ×2 (21:00→23:58)
[2018-03-03] MEDS: CARVEDILOL 12.5 MG TAB PO SCH (21:00)
[2018-03-03 21:16] VITALS: BP 188/93; PULSE 89; RESP 16; O2SAT 96
[2018-03-03 21:32] LABS: TROPONIN I 0.06 NG/ML (0.02-0.05)
[2018-03-03] MEDS: INSULIN NovoLIN REGULAR SUPPLEMENTAL SCALE SQ SCH (21:34)
[2018-03-03] MEDS: INSULIN DETEMIR 100 UNITS/ML VIAL SQ SCH (21:34)
[2018-03-03] MEDS: SODIUM CHLOR 0.9% 1000 ML INJ 1,000 ML IV SCH (22:09)
[2018-03-03] MEDS: LABETALOL HCL 100 MG/20 ML VIAL IV PUSH PRN (23:58)
[2018-03-04] VITALS (13 sets, daily range): BP systolic 121–164; BP diastolic 59–110; PULSE 72–92; RESP 13–28; TEMP 98.1–99; O2SAT 93–96
[2018-03-04] MEDS: niCARdipine INJ 25 MG in SODIUM CHLOR 0.9% 250 ML INJ 240 ML IV PRN ×10 (02:04→23:06)
[2018-03-04] MEDS: INSULIN NovoLIN REGULAR SUPPLEMENTAL SCALE SQ SCH ×5 (03:00→20:12)
[2018-03-04 03:31] LABS: HEMATOCRIT 32.1 % (35.0-46.0); HEMOGLOBIN 10.9 GM/DL (11.6-15.3); MEAN CELL VOLUME 80.2 FL (80.0-100.0); MEAN CORPUSCULAR HEMOGLOBIN 27.1 PG (27.0-34.0); MEAN CORPUSCULAR HGB CONC 33.8 % (32.0-36.0); PLATELET COUNT 208 TH/MM3 (150-450); RED CELL DISTRIBUTION WIDTH 16.4 % (11.6-17.2)
[2018-03-04] MEDS: CHLORHEXIDINE GLUCONATE 2 % 1 PACK (2 CLOTHS) TOP SCH (04:00)
[2018-03-04 04:03] LABS: CALCIUM 9.9 MG/DL (8.5-10.1); CREATININE 3.7 MG/DL (0.50-1.00)
[2018-03-04 04:08] LABS: TROPONIN I 0.07 NG/ML (0.02-0.05)
[2018-03-04] MEDS: hydrALAZINE HCL 20 MG/ML VIAL IV PUSH PRN ×2 (05:08→15:23)
[2018-03-04] MEDS: LEVOTHYROXINE SODIUM 50 MCG TAB PO SCH (06:00)
[2018-03-04] MEDS: hydrALAZINE HCL 50 MG TAB PO SCH ×3 (08:05→16:32)
[2018-03-04] MEDS: CARVEDILOL 12.5 MG TAB PO SCH ×2 (08:05→19:17)
[2018-03-04] MEDS: PROMETHAZINE INJ 25 MG/ML VIAL IM PRN ×2 (08:05→15:23)
[2018-03-04] MEDS: CLOPIDOGREL 75 MG TAB PO SCH (08:06)
[2018-03-04] MEDS: HEPARIN SODIUM - SQ 10,000 UNITS/ML VIAL SQ SCH ×2 (08:07→20:03)
[2018-03-04] MEDS ORDERED: cloNIDine HCL 0.1 MG TAB PO PRN (08:45)
--- NOTE | 2018-03-04 10:59 | HHI.PR ---
Subjective Remarks Nausea still present. Poor p.o. intake. Etiology for hypertensive urgency could be related to the nausea as this could be a viral gastroenteritis. Additionally she does not report receiving hypertensive problems but if she had pre-existing hypertensive urgency this may have caused transient meningeal irritation which could cause her nausea. Objective Vital Signs Date Time Temp Pulse Resp B/P (MAP) Pulse Ox O2 Delivery O2 Flow Rate FiO2 03/04/18 10:00 88 03/04/18 09:32 96 03/04/18 09:24 84 179/81 03/04/18 08:00 98.4 92 19 164/72 (102) 94 03/04/18 08:00 92 03/04/18 06:56 93 160/70 03/04/18 06:00 91 03/04/18 04:00 92 03/04/18 04:00 98.7 92 15 156/70 (98) 95 03/04/18 02:04 85 154/72 03/04/18 02:00 87 03/04/18 00:00 98.6 85 13 152/67 (95) 93 03/04/18 00:00 85 03/03/18 23:58 102 177/77 03/03/18 21:38 03/03/18 21:17 91 188/93 03/03/18 21:16 89 16 188/93 (124) 96 Room Air 03/03/18 21:00 92 212/116 03/03/18 18:52 90 18 187/85 (119) 96 Room Air 03/03/18 17:50 88 18 179/83 (115) 96 Room Air 03/03/18 15:56 92 18 190/85 (120) 98 Room Air 03/03/18 15:29 98 Room Air 03/03/18 14:40 98.6 83 17 245/112 (156) 97 I/O 03/03/18 03/03/18 03/03/18 03/04/18 03/04/18 03/04/18 07:00 15:00 23:00 07:00 15:00 23:00 Intake Total 1000 ml 750 ml Balance 1000 ml 750 ml Intake Oral 0 ml IV Total 1000 ml 750 ml # Voids 3 # Bowel Movements 0 Result Diagram: 03/04/1824203/04/18 0243 Objective Remarks GENERAL: NAD, A&Ox3 HEAD: Normocephalic. NECK: Supple, trachea midline. No lymphadenopathy. EYES: No scleral icterus. No injection or drainage. CARDIOVASCULAR: Regular rate and rhythm without murmurs, gallops, or rubs. RESPIRATORY: Breath sounds equal bilaterally. No accessory muscle use. GASTROINTESTINAL: Abdomen soft, non-tender, nondistended. MUSCULOSKELETAL: No cyanosis, or edema. SKIN: Warm and dry. NEURO: No focal neurological deficitis. A/P Problem List: (1) Hypertensive urgency ICD Code: I16.0 - Hypertensive urgency (2) Nausea and vomiting ICD Code: R11.2 - Nausea with vomiting, unspecified Status: Acute (3) CKD (chronic kidney disease) ICD Code: N18.9 - Chronic kidney disease, unspecified (4) Hyperlipidemia ICD Code: E78.5 - Hyperlipidemia, unspecified (5) Diabetes ICD Code: E11.9 - Type 2 diabetes mellitus without complications Status: Chronic (6) CAD (coronary artery disease) ICD Code: I25.10 - Atherosclerotic heart disease of [place] coronary artery without angina pectoris Assessment and Plan 52-year-old female admitted secondary to hypertensive urgency with hyperemesis. Hypertensive Urgency Blood pressures not yet stabilized Continue Cardene drip for now Baseline p.o. treatments have been resumed Monitor blood pressures CAD Elevated troponins Strain pattern Troponins flat and low No concerns for acute ischemic event No chest pain ASA, plavix continue Diabetes Follow blood sugars Insulin sliding scale Diabetic diet Continue Levemir. Hypothyroidism Continue Synthroid Follows an outpatient Hyperlipidemia Continue statin. Patient DVT prophylaxis SCDs Problem Qualifiers (1) Nausea and vomiting: Qualified Codes: R11.2 - Nausea with vomiting, unspecified Anatoly Yusuf MD Mar 04, 2018 10:58
[2018-03-04 12:28] LABS: TROPONIN I 0.08 NG/ML (0.02-0.05)
[2018-03-04] MEDS: ALUMINUM/MAGNESIUM/SIMETH 30 ML CUP PO PRN ×2 (12:39→19:13)
--- NOTE | 2018-03-04 13:34 | EKG ---
Date Performed: 03/03/2018 Time Performed: 15:08:27 PTAGE: 52 years EKG: Sinus rhythm WITH MARKED SINUS ARRHYTHMIA BORDERLINE ECG Since the PREVIOUS TRACING , no significant change noted PREVIOUS TRACIN10/24/2017 02.37 DOCTOR: Rick Torres Interpretating Date/Time 03/04/2018 13:32:30
[2018-03-04] MEDS: LABETALOL HCL 100 MG/20 ML VIAL IV PUSH PRN (15:23)
[2018-03-04] MEDS: ONDANSETRON HCL 4 MG/2 ML VIAL IV PUSH PRN (19:14)
[2018-03-04] MEDS: ATORVASTATIN 40 MG TAB PO SCH (19:17)
[2018-03-04] MEDS: INSULIN DETEMIR 100 UNITS/ML VIAL SQ SCH (20:04)
[2018-03-04] MEDS: SODIUM CHLOR 0.9% 1000 ML INJ 1,000 ML IV SCH (20:15)
[2018-03-04] MEDS ORDERED: ZOLPIDEM TARTRATE 5 MG TAB PO ONE (22:30)
[2018-03-05] VITALS (15 sets, daily range): BP systolic 115–168; BP diastolic 57–85; PULSE 71–92; RESP 20–36; TEMP 97–98.4; O2SAT 92–97
[2018-03-05] MEDS: CHLORHEXIDINE GLUCONATE 2 % 1 PACK (2 CLOTHS) TOP SCH (00:58)
[2018-03-05] MEDS: INSULIN NovoLIN REGULAR SUPPLEMENTAL SCALE SQ SCH ×5 (02:47→20:43)
[2018-03-05] MEDS: LEVOTHYROXINE SODIUM 50 MCG TAB PO SCH (05:15)
[2018-03-05 05:20] LABS: AUTOMATED NEUTROPHIL # 11.8 TH/MM3 (1.8-7.7); BASOPHIL # 0.1 TH/MM3 (0-0.2); BASOPHIL % 0.5 % (0.0-2.0); EOSINOPHIL # 0.1 TH/MM3 (0-0.4); EOSINOPHIL % 0.7 % (0.0-4.0); HEMATOCRIT 27.7 % (35.0-46.0); HEMOGLOBIN 9.3 GM/DL (11.6-15.3); LYMPH % 12.9 % (9.0-44.0); LYMPHOCYTE # 1.9 TH/MM3 (1.0-4.8); MEAN CORPUSCULAR HEMOGLOBIN 27.5 PG (27.0-34.0); MEAN CORPUSCULAR HGB CONC 33.5 % (32.0-36.0); MEAN PLATELET VOLUME 9.3 FL (7.0-11.0); MONO % 5.9 % (0.0-8.0); MONOCYTE # 0.9 TH/MM3 (0-0.9); PLATELET COUNT 188 TH/MM3 (150-450); RED BLOOD COUNT 3.38 MIL/MM3 (4.00-5.30); RED CELL DISTRIBUTION WIDTH 16.2 % (11.6-17.2); WHITE BLOOD COUNT 14.8 TH/MM3 (4.0-11.0)
[2018-03-05 05:46] LABS: ALBUMIN 2.8 GM/DL (3.4-5.0); ALKALINE PHOSPHATASE 70 U/L (45-117); ALT (GPT) 12 U/L (10-53); AST (GOT) 8 U/L (15-37); BICARBONATE 18.3 MEQ/L (21.0-32.0); BLOOD UREA NITROGEN 57 MG/DL (7-18); CALCIUM 9.1 MG/DL (8.5-10.1); CHLORIDE 117 MEQ/L (98-107); CREATININE 4.28 MG/DL (0.50-1.00); GLOMERULAR FILTRATION RATE 11 ML/MIN (>89); GLUCOSE,RANDOM 88 MG/DL (74-106); SODIUM (NA) 143 MEQ/L (136-145); TOTAL BILIRUBIN ADULT 0.3 MG/DL (0.2-1.0); TOTAL PROTEIN 6.4 GM/DL (6.4-8.2)
[2018-03-05] MEDS: hydrALAZINE HCL 50 MG TAB PO SCH ×3 (08:42→17:56)
[2018-03-05] MEDS: HEPARIN SODIUM - SQ 10,000 UNITS/ML VIAL SQ SCH ×2 (08:42→19:40)
[2018-03-05] MEDS: CARVEDILOL 12.5 MG TAB PO SCH ×2 (08:42→19:39)
[2018-03-05] MEDS: CLOPIDOGREL 75 MG TAB PO SCH (08:43)
[2018-03-05] MEDS ORDERED: methylPREDNISolone SOD SUCC 40 MG/1 ML VIAL IV PUSH ONE (09:30)
[2018-03-05] MEDS: ALUMINUM/MAGNESIUM/SIMETH 30 ML CUP PO PRN ×2 (10:39→15:51)
--- NOTE | 2018-03-05 16:05 | HHI.PR ---
Subjective Remarks Nausea is improved. Significant heartburn still present. Patient complains of shortness of breath and has been on oxygen through the day due to her breathing. Possible COPD exacerbation. Objective Vital Signs Date Time Temp Pulse Resp B/P (MAP) Pulse Ox O2 Delivery O2 Flow Rate FiO2 03/05/18 14:26 97 Nasal Cannula 3.00 03/05/18 14:00 80 03/05/18 12:00 98.2 76 32 154/85 (108) 97 03/05/18 12:00 76 03/05/18 10:00 71 03/05/18 08:00 78 03/05/18 08:00 98.3 78 20 168/70 (102) 93 03/05/18 06:00 71 03/05/18 04:00 73 03/05/18 04:00 97.7 78 28 157/69 (98) 93 03/05/18 03:56 97 Nasal Cannula 2.00 03/05/18 02:00 71 03/05/18 00:00 73 03/05/18 00:00 73 21 115/57 (76) 92 03/04/18 23:06 76 120/58 03/04/18 23:05 75 120/58 03/04/18 22:00 72 03/04/18 22:00 72 103/53 03/04/18 21:02 78 134/62 03/04/18 21:01 77 134/62 03/04/18 20:23 2.00 03/04/18 20:00 89 141/110 03/04/18 20:00 89 03/04/18 20:00 99.0 89 28 141/110 (120) 93 03/04/18 19:05 80 141/63 03/04/18 18:00 79 03/04/18 17:13 78 136/65 I/O 03/04/18 03/04/18 03/04/18 03/05/18 03/05/18 03/05/18 07:00 15:00 23:00 07:00 15:00 23:00 Intake Total 750 ml 813 ml 3286.4 ml 797 ml Balance 750 ml 813 ml 3286.4 ml 797 ml Intake Oral 0 ml 1200 ml 450 ml IV Total 750 ml 813 ml 2086.4 ml 347 ml # Voids 3 2 2 # Bowel Movements 0 0 Result Diagram: 03/05/1831403/05/18314 Objective Remarks GENERAL: NAD, A&Ox3 HEAD: Normocephalic. NECK: Supple, trachea midline. No lymphadenopathy. EYES: No scleral icterus. No injection or drainage. CARDIOVASCULAR: Regular rate and rhythm without murmurs, gallops, or rubs. RESPIRATORY: Breath sounds equal bilaterally. No accessory muscle use. GASTROINTESTINAL: Abdomen soft, non-tender, nondistended. MUSCULOSKELETAL: No cyanosis, or edema. SKIN: Warm and dry. NEURO: No focal neurological deficitis. A/P Problem List: (1) Hypertensive urgency ICD Code: I16.0 - Hypertensive urgency (2) Nausea and vomiting ICD Code: R11.2 - Nausea with vomiting, unspecified Status: Acute (3) CKD (chronic kidney disease) ICD Code: N18.9 - Chronic kidney disease, unspecified (4) Hyperlipidemia ICD Code: E78.5 - Hyperlipidemia, unspecified (5) Diabetes ICD Code: E11.9 - Type 2 diabetes mellitus without complications Status: Chronic (6) CAD (coronary artery disease) ICD Code: I25.10 - Atherosclerotic heart disease of [place] coronary artery without angina pectoris Assessment and Plan 52-year-old female admitted secondary to hypertensive urgency with hyperemesis. Acute dyspnea Etiology could be underlying, undiagnosed COPD versus reactive airway disease or related to her gastroesophageal reflux. Continue nebulizers Continue oxygen as needed Treat GERD with reflux medicines Hypertensive Urgency Not quite controlled blood pressures not yet stabilized Continue Cardene drip for now Baseline p.o. treatments have been resumed Adjust baseline treatment. Monitor blood pressures CAD Elevated troponins Strain pattern Troponins flat and low No concerns for acute ischemic event No chest pain ASA, plavix continue Diabetes Follow blood sugars Insulin sliding scale Diabetic diet Continue Levemir. Hypothyroidism Continue Synthroid Follows an outpatient Hyperlipidemia Continue statin. Patient DVT prophylaxis SCDs Problem Qualifiers (1) Nausea and vomiting: Qualified Codes: R11.2 - Nausea with vomiting, unspecified Anatoly Yusuf MD Mar 05, 2018 16:05
[2018-03-05] MEDS ORDERED: HYDROCHLOROTHIAZIDE 25 MG TAB PO ONE (16:15)
[2018-03-05] MEDS ORDERED: PANTOPRAZOLE SOD 40 MG DELAYED RELEASE TAB PO ONE (16:15)
[2018-03-05] MEDS: methylPREDNISolone SOD SUCC 40 MG/1 ML VIAL IV PUSH SCH (17:56)
[2018-03-05] MEDS: ATORVASTATIN 40 MG TAB PO SCH (19:39)
[2018-03-05] MEDS: SODIUM CHLOR 0.9% 1000 ML INJ 1,000 ML IV SCH (19:41)
[2018-03-05] MEDS: INSULIN DETEMIR 100 UNITS/ML VIAL SQ SCH (20:43)
[2018-03-05] MEDS ORDERED: ZOLPIDEM TARTRATE 5 MG TAB PO ONE (22:15)
[2018-03-06] VITALS (7 sets, daily range): BP systolic 139–172; BP diastolic 69–82; PULSE 75–85; RESP 17–21; TEMP 98–98.6; O2SAT 94–96
[2018-03-06] MEDS: methylPREDNISolone SOD SUCC 40 MG/1 ML VIAL IV PUSH SCH ×3 (02:42→18:17)
[2018-03-06] MEDS: INSULIN NovoLIN REGULAR SUPPLEMENTAL SCALE SQ SCH ×5 (02:57→21:23)
[2018-03-06] MEDS: CHLORHEXIDINE GLUCONATE 2 % 1 PACK (2 CLOTHS) TOP SCH (03:06)
[2018-03-06] MEDS: ONDANSETRON HCL 4 MG/2 ML VIAL IV PUSH PRN ×3 (03:49→18:19)
[2018-03-06] MEDS: LEVOTHYROXINE SODIUM 50 MCG TAB PO SCH (06:38)
[2018-03-06] MEDS: HEPARIN SODIUM - SQ 10,000 UNITS/ML VIAL SQ SCH ×2 (06:38→21:02)
[2018-03-06] MEDS: PROMETHAZINE INJ 25 MG/ML VIAL IM PRN ×2 (06:56→21:08)
[2018-03-06] MEDS: hydrALAZINE HCL 50 MG TAB PO SCH ×3 (08:56→18:18)
[2018-03-06] MEDS: PANTOPRAZOLE SOD 40 MG DELAYED RELEASE TAB PO SCH ×2 (08:57→21:02)
[2018-03-06] MEDS: HYDROCHLOROTHIAZIDE 25 MG TAB PO SCH (08:57)
[2018-03-06] MEDS: CARVEDILOL 12.5 MG TAB PO SCH ×2 (08:57→21:02)
[2018-03-06] MEDS: CLOPIDOGREL 75 MG TAB PO SCH (08:57)
[2018-03-06 09:26] LABS: HEMATOCRIT 29.7 % (35.0-46.0); HEMOGLOBIN 9.9 GM/DL (11.6-15.3); MEAN CELL VOLUME 81.9 FL (80.0-100.0); MEAN CORPUSCULAR HEMOGLOBIN 27.3 PG (27.0-34.0); MEAN CORPUSCULAR HGB CONC 33.3 % (32.0-36.0); MEAN PLATELET VOLUME 9.4 FL (7.0-11.0); PLATELET COUNT 187 TH/MM3 (150-450); RED BLOOD COUNT 3.63 MIL/MM3 (4.00-5.30); RED CELL DISTRIBUTION WIDTH 16.1 % (11.6-17.2); WHITE BLOOD COUNT 12.5 TH/MM3 (4.0-11.0)
[2018-03-06 09:52] LABS: BICARBONATE 18.1 MEQ/L (21.0-32.0); CALCIUM 9.5 MG/DL (8.5-10.1); CREATININE 4.24 MG/DL (0.50-1.00)
--- NOTE | 2018-03-06 17:59 | HHI.PR ---
Subjective Remarks Patient reported feeling nauseous, earlier she reported to the nurse having little nosebleed I discussed with the nurse she said she had a few spots on her gown She also reported feeling shaky I reviewed the record of the patient and discussed with her, she was seen by and she was placed on hemodialysis in the past and she was supposed to follow-up with him as an outpatient which she never did, most likely she is uremic and she will need to go on dialysis, will consult Dr. Balderas nephrology and will follow her BMP, will avoid nephrotoxin, monitor blood pressure Regarding her short of breath will continue with Solu-Medrol DuoNeb, will try to wean O2 and monitor, continue diabetic management Objective Vitals Vital Signs Date Time Temp Pulse Resp B/P (MAP) Pulse Ox O2 Delivery O2 Flow Rate FiO2 03/06/18 17:21 96 Nasal Cannula 2.00 03/06/18 16:00 98.1 84 17 156/71 (99) 96 03/06/18 12:00 98.6 77 17 160/73 (102) 96 03/06/18 08:00 98.0 80 17 172/82 (112) 94 03/06/18 05:23 98.0 75 21 163/74 (103) 96 03/06/18 00:27 98.5 83 21 139/69 (92) 95 03/05/18 23:58 95 Nasal Cannula 2.00 03/05/18 22:18 98.3 82 21 164/74 (104) 95 03/05/18 20:00 86 03/05/18 20:00 97.0 86 21 162/68 (99) 96 03/05/18 18:00 92 I/O 03/05/18 03/05/18 03/05/18 03/06/18 03/06/18 03/06/18 07:00 15:00 23:00 07:00 15:00 23:00 Intake Total 797 ml 1250 ml Output Total 1350 ml Balance 797 ml -100 ml Intake Oral 450 ml 1250 ml IV Total 347 ml Output Urine Total 1350 ml # Voids 2 # Bowel Movements 0 Result Diagram: 03/06/18 0745 03/06/18 0745 Objective Remarks GENERAL: This is a 52 years old female well-developed, looks slightly shaky CARDIOVASCULAR: RRR, no gallops, or rubs. RESPIRATORY: Fair air entry bilaterally. No W, R, or R GASTROINTESTINAL: Abdomen soft, non-tender, nondistended. Positive bowel sounds MUSCULOSKELETAL: Extremities without clubbing, cyanosis, or edema. Pedal pulses appreciated NEUROLOGICAL: Awake and alert. Moves all extremity. Normal speech.no focal neurological deficit A/P Assessment and Plan 52-year-old female admitted secondary to hypertensive urgency with hyperemesis. 03/06: I reviewed the record of the patient and discussed with her, she was seen by and she was placed on hemodialysis in the past and she was supposed to follow-up with him as an outpatient which she never did, most likely she is uremic and she will need to go on dialysis, will consult Dr. Balderas nephrology and will follow her BMP, will avoid nephrotoxin, monitor blood pressure Regarding her short of breath will continue with Solu-Medrol DuoNeb, will try to wean O2 and monitor, continue diabetic management Dyspnea on exertion COPD exacerbation Continue nebulizers Continue oxygen as needed Treat GERD with reflux medicines Hypertensive Urgency Status post Cardene drip Improved now on hydrochlorothiazide, hydralazine, monitor blood pressure Chronic kidney disease stage IV Patient was placed on hemodialysis in the past she is supposed to follow-up with nephrology CAD Elevated troponins Mostly demand perfusion mismatch No chest pain ASA, plavix continue Diabetes mellitus Diabetic diet, Accu-Chek with insulin sliding scale, continue Levemir Hypothyroidism Continue Synthroid Follows an outpatient Hyperlipidemia Continue statin. Patient DVT prophylaxis CARLOSs Linette Gates MD Mar 06, 2018 17:59
[2018-03-06] MEDS: SODIUM CHLOR 0.9% 1000 ML INJ 1,000 ML IV SCH (18:42)
[2018-03-06] MEDS: ATORVASTATIN 40 MG TAB PO SCH (21:02)
[2018-03-06] MEDS: INSULIN DETEMIR 100 UNITS/ML VIAL SQ SCH (21:23)
[2018-03-06] MEDS ORDERED: ZOLPIDEM TARTRATE 5 MG TAB PO ONE (21:45)
[2018-03-07] VITALS (7 sets, daily range): BP systolic 148–180; BP diastolic 62–83; PULSE 72–83; RESP 18; TEMP 97.8–98.5; O2SAT 92–96
[2018-03-07] MEDS: methylPREDNISolone SOD SUCC 40 MG/1 ML VIAL IV PUSH SCH ×3 (03:57→18:31)
[2018-03-07] MEDS: INSULIN NovoLIN REGULAR SUPPLEMENTAL SCALE SQ SCH ×5 (03:58→21:31)
[2018-03-07] MEDS: CHLORHEXIDINE GLUCONATE 2 % 1 PACK (2 CLOTHS) TOP SCH (04:00)
[2018-03-07] MEDS: LEVOTHYROXINE SODIUM 50 MCG TAB PO SCH (05:40)
[2018-03-07 06:34] LABS: HEMATOCRIT 28.3 % (35.0-46.0); HEMOGLOBIN 9.5 GM/DL (11.6-15.3); MEAN CELL VOLUME 81.7 FL (80.0-100.0); MEAN CORPUSCULAR HEMOGLOBIN 27.3 PG (27.0-34.0); MEAN CORPUSCULAR HGB CONC 33.5 % (32.0-36.0); MEAN PLATELET VOLUME 8.9 FL (7.0-11.0); PLATELET COUNT 207 TH/MM3 (150-450); RED BLOOD COUNT 3.46 MIL/MM3 (4.00-5.30); RED CELL DISTRIBUTION WIDTH 16.1 % (11.6-17.2); WHITE BLOOD COUNT 12.4 TH/MM3 (4.0-11.0)
[2018-03-07 06:56] LABS: BICARBONATE 17.7 MEQ/L (21.0-32.0); CALCIUM 9.5 MG/DL (8.5-10.1); CREATININE 4.48 MG/DL (0.50-1.00)
--- NOTE | 2018-03-07 09:15 | PD.CONS ---
[facility] Service Nephrology Consult Requested By Dr. Gates Reason for Consult Chronic kidney disease stage 5 Primary Care Physician No Primary Care Physician History of Present Illness Patient is a 52 year old female with past medical history of diabetes mellitus for more than 20 years, coronary artery disease, hyperlipidemia, hypertension, chronic kidney disease, GERD, and hypothyroidism. Patient presented to hospital with nausea and vomiting. In the emergency room she was found to be hypertensive with and SBP in the 200's. She was initially treated with a cardene gtt. Her blood pressure continues to be elevated but has improved. Nephrology was consulted for elevated creatinine and BUN and having a history of needing dialysis in July. Creatinine is noted to be 4.48 today which has been increasing since admission creatinine of 3.72. Potassium is stable at 4.7. Patient does not have health insurance and has not been followed by a cook starch outpatient. She reports that she has been complaint with medication except for insulin which she has not been able to afford. (Shira Frank) Review of Systems Respiratory: DENIES: Cough, Snoring, Sputum production, Shortness of breath Cardiovascular: DENIES: Chest pain, Palpitations, Lower Extremity Edema Gastrointestinal: DENIES: Abdominal pain, Diarrhea, Nausea, Vomiting ( Shira Frank) Past Family Social History Allergies: Coded Allergies: cephalexin (Verified Allergy, Severe, 10/23/17) Past Medical History 1. Hypertension. 2. Diabetes mellitus. 3. Chronic kidney disease stage IV. 4. Hyperlipidemia. 5. Ischemic heart disease. 6. GERD 7. Hypothyroidism Past Surgical History 1. PCI X 2 2. Previously had cholecystectomy. 3. Tubal ligation. 4. section. 5. Axillary body removal. 6. Multiple eye surgeries. Active Ordered Medications Current Medications Medications (Trade) Dose Ordered Sig/Stephan Route Start Time Stop Time Status Last Admin (NS Flush) 2 ml UNSCH PRN IV FLUSH 03/03/18 15:00 (D50w (Vial) Inj) 25 ml UNSCH PRN IV PUSH 03/03/18 19:15 (NovoLIN R SUPPLEMENTAL SCALE) 1 ACHS AND 3AM SQ 03/03/18 21:00 03/07/18 03:58 Sodium Chloride 1,000 ml @ 42 mls/hr [id number] IV 03/03/18 19:15 03/05/18 19:41 (Zofran Inj) 4 mg Q6H PRN IV PUSH 03/03/18 19:15 03/06/18 18:19 (Duoneb Neb) 1 ampule Q2HR NEB PRN INH 03/03/18 19:15 (Heparin Inj) 5,000 units Q12H SQ 03/03/18 19:15 03/06/18 21:02 Miscellaneous Information 1 [id number] XX 03/03/18 19:15 03/03/18 19:15 (Chlorhexidine 2% Cloth) 3 pack Taper DAILY@04 TOP 03/04/18 04:00 02/28/19 03:59 03/05/18 00:58 (Chlorhexidine 2% Cloth) 3 pack UNSCH PRN TOP 03/03/18 19:30 (Norvasc) 10 mg DAILY PO 03/03/18 19:15 03/06/18 08:56 (Lipitor) 40 mg HS PO 03/03/18 21:00 03/06/18 21:02 (Coreg) 12.5 mg Q12HR PO 03/03/18 21:00 03/06/18 21:02 (Plavix) 75 mg DAILY PO 03/04/18 09:00 03/06/18 08:57 (Apresoline) 100 mg TID PO 03/04/18 09:00 03/06/18 18:18 (Levemir Inj) 10 units HS SQ 03/03/18 21:00 03/06/18 21:23 (Synthroid) 50 mcg DAILY@0600 PO 03/04/18 06:00 03/07/18 05:40 (Trandate Inj) 20 mg Q15M PRN IV PUSH 03/03/18 19:30 03/04/18 15:23 (Apresoline Inj) 10 mg Q30M PRN IV PUSH 03/03/18 19:30 03/04/18 15:23 (D50w (Vial) Inj) 50 ml UNSCH PRN IV PUSH 03/03/18 19:30 (Glucagon Inj) 1 mg UNSCH PRN OTHER 03/03/18 19:30 (Phenergan Inj) 12.5 mg Q6H PRN IM 03/03/18 22:30 03/06/18 21:08 (Catapres) 0.1 mg Q6H PRN PO 03/04/18 08:45 (Mag-Al Plus Susp Liq) 30 ml PCHS PRN PO 03/04/18 12:00 03/05/18 15:51 (SoluMEDROL INJ) 40 mg Q8H IV PUSH 03/05/18 18:00 03/07/18 03:57 (Hydrodiuril) 25 mg DAILY PO 03/06/18 09:00 03/06/18 08:57 (Protonix) 40 mg Q12HR PO 03/06/18 09:00 03/06/18 21:02 Family History Mother and father both with history of kidney disease. Mother on dialysis Social History Quit smoking 6 months ago No alcohol use Lives with daughter Self employed (Shira Frank) Physical Exam Vital Signs Vital Signs Date Time Temp Pulse Resp B/P (MAP) Pulse Ox O2 Delivery O2 Flow Rate FiO2 03/07/18 07:43 83 18 180/83 (115) 96 03/07/18 04:00 98.4 74 18 169/75 (106) 94 03/07/18 00:00 97.8 75 18 148/62 (90) 92 03/06/18 20:00 98.6 85 18 171/74 (106) 94 03/06/18 17:21 96 Nasal Cannula 2.00 03/06/18 16:00 98.1 84 17 156/71 (99) 96 03/06/18 12:00 98.6 77 17 160/73 (102) 96 Physical Exam GENERAL: alert and oriented. SKIN: Warm and dry. HEAD: Normocephalic. EYES: No scleral icterus. No injection or drainage. NECK: Supple, trachea midline. No JVD or lymphadenopathy. CARDIOVASCULAR: Regular rate and rhythm without murmurs, gallops, or rubs. RESPIRATORY: Breath sounds equal bilaterally. No accessory muscle use. GASTROINTESTINAL: Abdomen soft, non-tender, nondistended. MUSCULOSKELETAL: No cyanosis, or edema. BACK: Nontender without obvious deformity. No CVA tenderness. Laboratory Laboratory Tests Test 03/07/18 06:13 White Blood Count 12.4 Red Blood Count 3.46 Hemoglobin 9.5 Hematocrit 28.3 Mean Corpuscular Volume 81.7 Mean Corpuscular Hemoglobin 27.3 Mean Corpuscular Hemoglobin Concent 33.5 Red Cell Distribution Width 16.1 Platelet Count 207 Mean Platelet Volume 8.9 Blood Urea Nitrogen 71 Creatinine 4.48 Random Glucose 199 Calcium Level 9.5 Sodium Level 136 Potassium Level 4.7 Chloride Level 108 Carbon Dioxide Level 17.7 Anion Gap 10 Estimat Glomerular Filtration Rate 10 (Shira Frank) Result Diagram: 03/07/1861203/07/18612 Assessment and Plan Problem List: (1) Renal failure (ARF), acute on chronic ICD Codes: N17.9 - Acute kidney failure, unspecified; N18.9 - Chronic kidney disease, unspecified Plan: May have acute kidney injury with a creatinine of 4.48 which has increased from 3.72 on admission may be related to hypertensive crisis or poor intake. Chronic kidney disease stage 5 per records. Proteinuria noted. Possible related to hypertensive/renovascular disease/ diabetic nephropathy Has history of Hemodialysis X 1 in July Has good urinary output and potassium is stable. Plan Continue gentle hydration Encourage oral intake Will order renal US and urine studies Avoid Nephrotoxins Serology in July reviewed. Follow the urine out put and BMP. (2) Chronic kidney disease, stage 5 ICD Codes: N18.5 - Chronic kidney disease, stage 5 Plan: Baseline creatinine around 3.5 Should be followed by nephrology outpatient (3) Hypertension ICD Codes: I10 - Essential (primary) hypertension Plan: Hypertension improved. will monitor (4) Diabetes ICD Codes: E11.9 - Type 2 diabetes mellitus without complications Status: Chronic Plan: Maintain BS between 140 mg/dl to 180 mg/dl. (Shira Frank) Problem List: (1) Renal failure (ARF), acute on chronic ICD Codes: N17.9 - Acute kidney failure, unspecified; N18.9 - Chronic kidney disease, unspecified Plan: May have acute kidney injury with a creatinine of 4.48 which has increased from 3.72 on admission may be related to hypertensive crisis or poor intake. Chronic kidney disease stage 5 per records. Proteinuria noted. Possible related to hypertensive/renovascular disease/ diabetic nephropathy Has history of Hemodialysis X 1 in July Has good urinary output and potassium is stable. Plan Continue gentle hydration Encourage oral intake Will order renal US and urine studies Avoid Nephrotoxins Serology in July reviewed. Follow the urine out put and BMP. Patient seen and examined, agree with above. Patient has advance renal disease. D/W her about HD and PD. (2) Chronic kidney disease, stage 5 ICD Codes: N18.5 - Chronic kidney disease, stage 5 Plan: Baseline creatinine around 3.5 Should be followed by nephrology outpatient (3) Hypertension ICD Codes: I10 - Essential (primary) hypertension Plan: Hypertension improved. will monitor (4) Diabetes ICD Codes: E11.9 - Type 2 diabetes mellitus without complications Status: Chronic Plan: Maintain BS between 140 mg/dl to 180 mg/dl. (Adebayo Balderas MD) Shira Frank Mar 07, 2018 09:15 Adebayo Balderas MD Mar 07, 2018 14:42
[2018-03-07] MEDS: CARVEDILOL 12.5 MG TAB PO SCH ×2 (09:28→21:32)
[2018-03-07] MEDS: cloNIDine HCL 0.1 MG TAB PO SCH ×2 (09:28→21:32)
[2018-03-07] MEDS: hydrALAZINE HCL 50 MG TAB PO SCH ×3 (09:29→18:30)
[2018-03-07] MEDS: PANTOPRAZOLE SOD 40 MG DELAYED RELEASE TAB PO SCH ×2 (09:29→21:32)
[2018-03-07] MEDS: HYDROCHLOROTHIAZIDE 25 MG TAB PO SCH (09:29)
[2018-03-07] MEDS: CLOPIDOGREL 75 MG TAB PO SCH (09:30)
[2018-03-07] MEDS: HEPARIN SODIUM - SQ 10,000 UNITS/ML VIAL SQ SCH ×2 (09:33→21:34)
--- NOTE | 2018-03-07 14:13 | HHI.PR ---
Subjective Remarks Feeling fatigue, no chest pain or short of breath Discussed with her hemodialysis Objective Vitals Vital Signs Date Time Temp Pulse Resp B/P (MAP) Pulse Ox O2 Delivery O2 Flow Rate FiO2 03/07/18 11:59 98.5 76 18 159/74 (102) 95 03/07/18 10:16 96 Nasal Cannula 2.00 03/07/18 07:43 83 18 180/83 (115) 96 03/07/18 04:00 98.4 74 18 169/75 (106) 94 03/07/18 00:00 97.8 75 18 148/62 (90) 92 03/06/18 20:00 98.6 85 18 171/74 (106) 94 03/06/18 17:21 96 Nasal Cannula 2.00 03/06/18 16:00 98.1 84 17 156/71 (99) 96 I/O 03/06/18 03/06/18 03/06/18 03/07/18 03/07/18 03/07/18 07:00 15:00 23:00 07:00 15:00 23:00 Intake Total 900 ml Balance 900 ml IV Total 900 ml # Voids 4 Result Diagram: 03/07/1813 03/07/18 0613 Objective Remarks GENERAL: This is a 52 years old female well-developed, looks slightly shaky CARDIOVASCULAR: RRR, no gallops, or rubs. RESPIRATORY: Fair air entry bilaterally. No W, R, or R GASTROINTESTINAL: Abdomen soft, non-tender, nondistended. Positive bowel sounds MUSCULOSKELETAL: Extremities without clubbing, cyanosis, or edema. Pedal pulses appreciated NEUROLOGICAL: Awake and alert. Moves all extremity. Normal speech.no focal neurological deficit A/P Assessment and Plan 52-year-old female admitted secondary to hypertensive urgency with hyperemesis. 03/06: I reviewed the record of the patient and discussed with her, she was seen by and she was placed on hemodialysis in the past and she was supposed to follow-up with him as an outpatient which she never did, most likely she is uremic and she will need to go on dialysis, will consult Dr. Balderas nephrology and will follow her BMP, will avoid nephrotoxin, monitor blood pressure Regarding her short of breath will continue with Solu-Medrol DuoNeb, will try to wean O2 and monitor, continue diabetic management 03/07: Appreciate nephrology consultation, discussed with Dr. Balderas patient will need dialysis for good now, she understand and she agreed, continue following BMP, avoid nephrotoxin. Add clonidine twice daily for further blood pressure optimization A/P: Dyspnea on exertion COPD exacerbation Continue nebulizers Continue oxygen as needed Treat GERD with reflux medicines Hypertensive Urgency Status post Cardene drip Improved now on hydrochlorothiazide, hydralazine, monitor blood pressure Chronic kidney disease stage IV Patient was placed on hemodialysis in the past she is supposed to follow-up with nephrology CAD Elevated troponins Mostly demand perfusion mismatch No chest pain ASA, plavix continue Diabetes mellitus Diabetic diet, Accu-Chek with insulin sliding scale, continue Levemir Hypothyroidism Continue Synthroid Follows an outpatient Hyperlipidemia Continue statin. Patient DVT prophylaxis SCDs Linette Gates MD Mar 07, 2018 14:13
--- NOTE | 2018-03-07 16:39 | RADRPT ---
EXAM DATE/TIME: 03/07/2018 15:48 [facility] COMPARISON: US KIDNEY/RENAL/BLADDER, July 28, 2017, 10:58. INDICATIONS : Increased BUN/Creatnine. MEDICAL HISTORY : Hypertension. Thyroid disease. Dentures. Syncope. Anticoagulant therapy, plavix and asa. Renal di sease. Diabetes. SURGICAL HISTORY : Cholecystectomy. Tubal ligation. section. Coronary artery stent. Boils removed. ENCOUNTER: Subsequent ACUITY: 1 year PAIN SCORE: 0/10 LOCATION: Bilateral flank MEASUREMENTS: RIGHT KIDNEY: 8.1 x 5.2 x 4.6 cm LEFT KIDNEY: 9.5 x 4.7 x 4.7 cm FINDINGS: RIGHT KIDNEY: Renal cortex is normal in thickness and echotexture. No hydronephrosis, stone, or mass. LEFT KIDNEY: Renal cortex is normal in thickness and echotexture. No hydronephrosis, stone, or mass. BLADDER: Within normal limits given the degree of distension. CONCLUSION: 1. Kidneys appear slightly smaller when compared to the prior exam previously measuring 10.2 cm on th e right and 10.5 on the left (now measuring 8.1 cm on the right and 9.5 on the left). Findings may be partly technical although some degree of chronic medical renal disease cannot be excluded. 2. Otherwise negative. No hydronephrosis or nephrolithiasis. Lemuel Ahuja MD on March 07, 2018 at 16:15 Board Certified Radiologist. This report was verified electronically.
[2018-03-07] MEDS: SODIUM CHLOR 0.9% 1000 ML INJ 1,000 ML IV SCH (18:31)
[2018-03-07] MEDS: ZOLPIDEM TARTRATE 5 MG TAB PO PRN (21:32)
[2018-03-07] MEDS: INSULIN DETEMIR 100 UNITS/ML VIAL SQ SCH (21:32)
[2018-03-07] MEDS: ATORVASTATIN 40 MG TAB PO SCH (21:33)
[2018-03-08] VITALS: BP 136/67; PULSE 70; RESP 18; TEMP 97.6; O2SAT 95
[2018-03-08] MEDS: CHLORHEXIDINE GLUCONATE 2 % 1 PACK (2 CLOTHS) TOP SCH (01:33)
[2018-03-08] MEDS: methylPREDNISolone SOD SUCC 40 MG/1 ML VIAL IV PUSH SCH ×3 (02:21→17:06)
[2018-03-08] MEDS: INSULIN NovoLIN REGULAR SUPPLEMENTAL SCALE SQ SCH ×5 (02:30→21:02)
[2018-03-08 04:00] VITALS: BP 155/73; PULSE 67; RESP 18; TEMP 97.4; O2SAT 95
[2018-03-08] MEDS: LEVOTHYROXINE SODIUM 50 MCG TAB PO SCH (05:18)
[2018-03-08 07:24] LABS: HEMATOCRIT 25.5 % (35.0-46.0); HEMOGLOBIN 8.8 GM/DL (11.6-15.3); MEAN CELL VOLUME 81.4 FL (80.0-100.0); MEAN CORPUSCULAR HEMOGLOBIN 28.1 PG (27.0-34.0); MEAN CORPUSCULAR HGB CONC 34.5 % (32.0-36.0); MEAN PLATELET VOLUME 9.2 FL (7.0-11.0); PLATELET COUNT 196 TH/MM3 (150-450); RED BLOOD COUNT 3.14 MIL/MM3 (4.00-5.30); RED CELL DISTRIBUTION WIDTH 15.9 % (11.6-17.2); WHITE BLOOD COUNT 9.7 TH/MM3 (4.0-11.0)
[2018-03-08 07:53] LABS: BICARBONATE 17.1 MEQ/L (21.0-32.0); CALCIUM 9.2 MG/DL (8.5-10.1); CREATININE 4.61 MG/DL (0.50-1.00)
[2018-03-08 07:54] LABS: PHOSPHORUS 3.1 MG/DL (2.5-4.9)
[2018-03-08 08:18] VITALS: BP 174/89; PULSE 77; RESP 20; TEMP 98; O2SAT 95
[2018-03-08] MEDS: HYDROCHLOROTHIAZIDE 25 MG TAB PO SCH (08:49)
[2018-03-08] MEDS: HEPARIN SODIUM - SQ 10,000 UNITS/ML VIAL SQ SCH ×2 (08:49→18:03)
[2018-03-08] MEDS: PANTOPRAZOLE SOD 40 MG DELAYED RELEASE TAB PO SCH ×2 (08:49→21:00)
[2018-03-08] MEDS: CLOPIDOGREL 75 MG TAB PO SCH (08:49)
[2018-03-08] MEDS: CARVEDILOL 12.5 MG TAB PO SCH ×2 (08:50→21:00)
[2018-03-08] MEDS: hydrALAZINE HCL 50 MG TAB PO SCH ×3 (08:50→17:06)
[2018-03-08] MEDS: cloNIDine HCL 0.1 MG TAB PO SCH ×2 (08:51→21:00)
[2018-03-08 12:25] VITALS: BP 145/68; PULSE 66; RESP 20; TEMP 97.6; O2SAT 96
[2018-03-08] MEDS: INSULIN HUMAN NPH 1,000 UNITS/10 ML VIAL SQ SCH ×2 (12:47→17:07)
--- NOTE | 2018-03-08 13:40 | HHI.NPPN ---
Subjective General Problems: Anemia Renal Failure: Chronic, Stage V History of Present Illness Patient is a 52 year old female with past medical history of diabetes mellitus for more than 20 years, coronary artery disease, hyperlipidemia, hypertension, chronic kidney disease, GERD, and hypothyroidism. Patient presented to hospital with nausea and vomiting. In the emergency room she was found to be hypertensive with and SBP in the 200's. She was initially treated with a cardene gtt. Her blood pressure continues to be elevated but has improved. Nephrology was consulted for elevated creatinine and BUN and having a history of needing dialysis in July. Creatinine is noted to be 4.48 today which has been increasing since admission creatinine of 3.72. Potassium is stable at 4.7. Patient does not have health insurance and has not been followed by a loan servicing specialist outpatient. She reports that she has been complaint with medication except for insulin which she has not been able to afford. Additional Remarks Patient reports fatigue. Mild lower extremity edema present. Reports some congestion today. (Shira Frank) Review of Systems General Constitutional: Fatigue (Shira Frank) Respiratory Lungs: Cough Respiratory Remarks congestion (Shira Frank) Cardiovascular Cardiac: Edema Cardiac Remarks Denies any chest pain (Shira Frank) Objective Data Data Vital Signs Date Time Temp Pulse Resp B/P (MAP) Pulse Ox O2 Delivery O2 Flow Rate FiO2 03/08/18 12:25 97.6 66 20 145/68 (93) 96 03/08/18 08:18 98.0 77 20 174/89 (117) 95 03/08/18 04:00 97.4 67 18 155/73 (100) 95 03/08/18 00:00 97.6 70 18 136/67 (90) 95 03/07/18 20:00 97.8 72 18 150/72 (98) 96 03/07/18 16:00 98.3 80 18 160/75 (103) 95 (Shira Frank) -: 03/08/18 0518 03/08/18 0518 Imaging Last Impressions Renal Ultrasound 03/07/18 0000 Signed Impressions: Service Date/Time: Wednesday, March 07, 2018 15:48 - CONCLUSION: 1. Kidneys appear slightly smaller when compared to the prior exam previously measuring 10.2 cm on the right and 10.5 on the left (now measuring 8.1 cm on the right and 9.5 on the left). Findings may be partly technical although some degree of chronic medical renal disease cannot be excluded. 2. Otherwise negative. No hydronephrosis or nephrolithiasis. Lemuel Ahuja MD (Shira Frank) Physical Exam General Appearance: No Acute Distress, Comfortable (Shira Frank REELING MACHINE OPERATOR) Pulmonary Resp Exam: Breath Sounds Equal, No Distress (Shira Frank REELING MACHINE OPERATOR) Gastrointestinal/Abdomen GI Exam: Non-Tender, Bowel Sounds Present, Distended (Shira Frank REELING MACHINE OPERATOR) Genitourinary Exam: Flank Non-Tender (Shira Frank REELING MACHINE OPERATOR) Integumentary Skin Exam: Clear, Warm, Dry (Shira Frank REELING MACHINE OPERATOR) Extremeties Extremities Exam: Moderate Edema (Shira Frank REELING MACHINE OPERATOR) Neurologic Neuro Exam: Alert, Awake (Shira FrankP) Psychiatric Psych Exam: Appropriate Responses (Shira Frank) Assessment/Plan Problem List: (1) Renal failure (ARF), acute on chronic ICD Codes: N17.9 - Acute kidney failure, unspecified; N18.9 - Chronic kidney disease, unspecified Plan: May have acute kidney injury with a creatinine of 4.48 which has increased from 3.72 on admission may be related to hypertensive crisis or poor intake. Chronic kidney disease stage 5 per records. Proteinuria noted. Possible related to hypertensive/renovascular disease/ diabetic nephropathy Has history of Hemodialysis X 1 in July Renal US: Kidneys appear slightly smaller when compared to the prior exam previously measuring 10.2 cm on the right and 10.5 on the left (now measuring 8.1 cm on the right and 9.5 on the left). Findings may be partly technical although some degree of chronic medical renal disease cannot be excluded. Otherwise negative. No hydronephrosis or nephrolithiasis. Plan Avoid Nephrotoxins Serology in July reviewed. Follow the urine out put and BMP. Patient has decided to proceed with hemodialysis. Patient has advance renal disease will proceed with permacath placement tomorrow. (2) Chronic kidney disease, stage 5 ICD Codes: N18.5 - Chronic kidney disease, stage 5 Plan: Baseline creatinine around 3.5 Should be followed by nephrology outpatient (3) Hypertension ICD Codes: I10 - Essential (primary) hypertension Plan: Hypertension improved. will monitor (4) Diabetes ICD Codes: E11.9 - Type 2 diabetes mellitus without complications Status: Chronic Plan: Maintain BS between 140 mg/dl to 180 mg/dl. (Shira Frank) Problem List: (1) Renal failure (ARF), acute on chronic ICD Codes: N17.9 - Acute kidney failure, unspecified; N18.9 - Chronic kidney disease, unspecified Plan: May have mild acute kidney injury with a creatinine of 4.48 which has increased from 3.72 on admission may be related to hypertensive crisis or poor intake. Chronic kidney disease stage 5 per records. Proteinuria noted. Possible related to hypertensive/renovascular disease/ diabetic nephropathy Has history of Hemodialysis X 1 in July Renal US: Kidneys appear slightly smaller when compared to the prior exam previously measuring 10.2 cm on the right and 10.5 on the left (now measuring 8.1 cm on the right and 9.5 on the left). Findings may be partly technical although some degree of chronic medical renal disease cannot be excluded. Otherwise negative. No hydronephrosis or nephrolithiasis. Plan Avoid Nephrotoxins Serology in July reviewed. Follow the urine out put and BMP. Patient has decided to proceed with hemodialysis. Patient has advance renal disease will proceed with Vascath placement tomorrow, as she is on Plavix. Will need Cardiology to decide if can hold Plavix for few days to get PermCath and AVF. Patient does not want PD, want to go for HD. (2) Chronic kidney disease, stage 5 ICD Codes: N18.5 - Chronic kidney disease, stage 5 Plan: Baseline creatinine around 3.5 Should be followed by nephrology outpatient (3) Hypertension ICD Codes: I10 - Essential (primary) hypertension Plan: Hypertension improved. will monitor (4) Diabetes ICD Codes: E11.9 - Type 2 diabetes mellitus without complications Status: Chronic Plan: Maintain BS between 140 mg/dl to 180 mg/dl. (Adebayo Balderas MD) Shira Frank Mar 08, 2018 13:40 Adebayo Balderas MD Mar 08, 2018 17:53
[2018-03-08 15:27] VITALS: BP 162/79; PULSE 71; RESP 20; TEMP 97.6; O2SAT 98
[2018-03-08] MEDS ORDERED: SODIUM CHLOR 0.9% 1000 ML INJ 1,000 ML OTHER PRN ×2 (17:56)
[2018-03-08] MEDS ORDERED: SODIUM CHLOR 0.9% 1000 ML INJ 1,000 ML IV PRN (17:56)
[2018-03-08] MEDS ORDERED: cloNIDine HCL 0.1 MG TAB PO PRN (18:00)
[2018-03-08] MEDS ORDERED: ONDANSETRON HCL 4 MG/2 ML VIAL IV PUSH PRN (18:00)
[2018-03-08] MEDS ORDERED: HEPARIN SODIUM - IV 10,000 UNITS/10 ML VIAL IV FLUSH PRN (18:00)
[2018-03-08] MEDS ORDERED: NITROGLYCERIN 0.4 MG SL 25 TABS/BTL SL PRN (18:00)
[2018-03-08] MEDS ORDERED: MANNITOL 12.5 GM/50 ML VIAL IV PRN (18:00)
[2018-03-08] MEDS ORDERED: SODIUM CHLORIDE 0.9% FLUSH 10 ML FLUSH IV FLUSH PRN (18:00)
[2018-03-08] MEDS ORDERED: HEPARIN SODIUM - IV 10,000 UNITS/10 ML VIAL PRN (18:00)
[2018-03-08] MEDS ORDERED: diphenhydrAMINE HCL 25 MG CAP PO PRN (18:00)
[2018-03-08] MEDS ORDERED: GELATIN 12 MM/7 MM FOAM TOP PRN (18:00)
[2018-03-08] MEDS ORDERED: ALBUMIN 25% INJ 100 ML IV PRN (18:00)
[2018-03-08] MEDS ORDERED: INSULIN HUMAN REGULAR 1,000 UNITS/10 ML VIAL SQ ONE (18:15)
--- NOTE | 2018-03-08 19:08 | HHI.PR ---
Subjective Remarks Resting in bed no pain or short of breath, afebrile She is not happy about needing hemodialysis Objective Vitals Vital Signs Date Time Temp Pulse Resp B/P (MAP) Pulse Ox O2 Delivery O2 Flow Rate FiO2 03/08/18 15:27 97.6 71 20 162/79 (106) 98 03/08/18 12:25 97.6 66 20 145/68 (93) 96 03/08/18 08:18 98.0 77 20 174/89 (117) 95 03/08/18 04:00 97.4 67 18 155/73 (100) 95 03/08/18 00:00 97.6 70 18 136/67 (90) 95 03/07/18 20:00 97.8 72 18 150/72 (98) 96 I/O 03/07/18 03/07/18 03/07/18 03/08/18 03/08/18 03/08/18 07:00 15:00 23:00 07:00 15:00 23:00 Intake Total 720 ml Balance 720 ml Intake Oral 720 ml # Voids 4 3 3 Result Diagram: 03/08/1851703/08/1818 Objective Remarks GENERAL: This is a 52 years old female well-developed, looks slightly shaky CARDIOVASCULAR: RRR, no gallops, or rubs. RESPIRATORY: Fair air entry bilaterally. No W, R, or R GASTROINTESTINAL: Abdomen soft, non-tender, nondistended. Positive bowel sounds MUSCULOSKELETAL: Extremities without clubbing, cyanosis, or edema. Pedal pulses appreciated NEUROLOGICAL: Awake and alert. Moves all extremity. Normal speech.no focal neurological deficit A/P Assessment and Plan 52-year-old female admitted secondary to hypertensive urgency with hyperemesis. 03/08: 20 monitoring BMP, avoid nephrotoxin, follow with patron attendant, will need Vas-Cath for hemodialysis, discussed with nurse and with case finisher for further post discharge hemodialysis arrangement A/P: Dyspnea on exertion COPD exacerbation Continue nebulizers Continue oxygen as needed Treat GERD with reflux medicines Hypertensive Urgency Status post Cardene drip Improved now on hydrochlorothiazide, hydralazine, monitor blood pressure Chronic kidney disease stage IV Patient was placed on hemodialysis in the past she is supposed to follow-up with nephrology CAD Elevated troponins Mostly demand perfusion mismatch No chest pain ASA, plavix continue Diabetes mellitus Diabetic diet, Accu-Chek with insulin sliding scale, continue Levemir Hypothyroidism Continue Synthroid Follows an outpatient Hyperlipidemia Continue statin. Patient DVT prophylaxis SCDs Linette Gates MD Mar 08, 2018 19:08
[2018-03-08 20:00] VITALS: BP 173/79; PULSE 68; RESP 18; TEMP 97.9; O2SAT 97
[2018-03-08] MEDS: ATORVASTATIN 40 MG TAB PO SCH (21:00)
[2018-03-08] MEDS: SODIUM BICARBONATE 650 MG TAB PO SCH (21:00)
[2018-03-08] MEDS: INSULIN DETEMIR 100 UNITS/ML VIAL SQ SCH (21:02)
[2018-03-08] MEDS: ZOLPIDEM TARTRATE 5 MG TAB PO PRN (21:04)
[2018-03-09] VITALS (8 sets, daily range): BP systolic 137–180; BP diastolic 65–79; PULSE 63–80; RESP 18–20; TEMP 97.4–98.1; O2SAT 94–99
[2018-03-09] MEDS ORDERED: INSULIN ASPART 1,000 UNITS/10 ML VIAL SQ ONE
[2018-03-09] MEDS: INSULIN NovoLIN REGULAR SUPPLEMENTAL SCALE SQ SCH ×5 (03:00→21:12)
[2018-03-09] MEDS: methylPREDNISolone SOD SUCC 40 MG/1 ML VIAL IV PUSH SCH ×3 (03:44→18:14)
[2018-03-09] MEDS: CHLORHEXIDINE GLUCONATE 2 % 1 PACK (2 CLOTHS) TOP SCH (04:00)
[2018-03-09 05:46] LABS: INTERNATIONAL NORMALIZED RATIO 1.1 RATIO; PROTHROMBIN TIME - PATIENT 10.7 SEC (9.8-11.6)
[2018-03-09 05:48] LABS: HEMATOCRIT 25.1 % (35.0-46.0); HEMOGLOBIN 8.7 GM/DL (11.6-15.3); MEAN CELL VOLUME 80.9 FL (80.0-100.0); MEAN CORPUSCULAR HEMOGLOBIN 28.1 PG (27.0-34.0); MEAN CORPUSCULAR HGB CONC 34.7 % (32.0-36.0); PLATELET COUNT 218 TH/MM3 (150-450); RED CELL DISTRIBUTION WIDTH 15.5 % (11.6-17.2)
[2018-03-09 05:59] LABS: % SATURATION IRON PROFILE 8.9 % (20-50); BICARBONATE 18.7 MEQ/L (21.0-32.0); BLOOD UREA NITROGEN 91 MG/DL (7-18); CALCIUM 9.1 MG/DL (8.5-10.1); CHLORIDE 104 MEQ/L (98-107); CREATININE 4.48 MG/DL (0.50-1.00); FERRITIN 28 NG/ML (8-252); GLOMERULAR FILTRATION RATE 10 ML/MIN (>89); GLUCOSE,RANDOM 350 MG/DL (74-106); IRON (FE) 28 MCG/DL (50-170); SODIUM (NA) 133 MEQ/L (136-145); TOTAL IRON BINDING CAPACITY 314 MCG/DL (250-450)
[2018-03-09] MEDS: HEPARIN SODIUM - SQ 10,000 UNITS/ML VIAL SQ SCH ×2 (06:02→18:17)
[2018-03-09] MEDS: LEVOTHYROXINE SODIUM 50 MCG TAB PO SCH (06:23)
[2018-03-09] MEDS: PANTOPRAZOLE SOD 40 MG DELAYED RELEASE TAB PO SCH ×2 (08:30→21:10)
[2018-03-09] MEDS: cloNIDine HCL 0.1 MG TAB PO SCH ×2 (08:30→21:11)
[2018-03-09] MEDS: SODIUM BICARBONATE 650 MG TAB PO SCH ×2 (08:30→21:11)
[2018-03-09] MEDS: HYDROCHLOROTHIAZIDE 25 MG TAB PO SCH (08:31)
[2018-03-09] MEDS: hydrALAZINE HCL 50 MG TAB PO SCH ×3 (08:31→18:14)
[2018-03-09] MEDS: CARVEDILOL 12.5 MG TAB PO SCH ×2 (08:31→21:11)
[2018-03-09] MEDS: CLOPIDOGREL 75 MG TAB PO SCH (08:32)
[2018-03-09] MEDS: INSULIN HUMAN NPH 1,000 UNITS/10 ML VIAL SQ SCH ×3 (08:32→18:15)
--- NOTE | 2018-03-09 09:23 | PD.RAD ---
Post Procedure Progress Note Pre Procedure Diagnosis: (1) Chronic kidney disease, stage 5 Post Procedure Diagnosis: (1) Chronic kidney disease, stage 5 Procedure Date: Mar 09, 2018 Supervising Radiologist: Mauricio Castro JR Proceduralist/Assist: Evens Kc, RT(R), Saira Olson RT(R) Anesthesia: Local Plan of Activity Patient to Unit: Nursing Unit Patient Condition: Good See PACS Report for procedural detail/treatment Central Venous Access Device Procedure 1 Right Internal Jugular Hemodialysis Catheter Non-Tunneled Placement dual lumen Pashto: 14 Findings: Placed right IJ Vascath. Pt on Plavix. Cath functions well and is ready for use. OK to use. Plan Pt can return for conversion to Permcath following 5 day hold of Plavix. Jr Matthew.,Mauricio Oropeza MD Mar 09, 2018 09:23
[2018-03-09] MEDS ORDERED: HEPARIN SODIUM - IV 2,000 UNITS/2 ML VIAL IV FLUSH PRN (09:30)
[2018-03-09] MEDS ORDERED: SODIUM CHLORIDE 0.9% FLUSH 10 ML FLUSH IV FLUSH PRN (09:30)
--- NOTE | 2018-03-09 09:50 | RADRPT ---
EXAM DATE/TIME: 03/09/2018 09:14 [place] COMPARISON: No previous studies available for comparison. INDICATIONS : Patient with history of chronic kidney disease in need of non tunnelled dialysis catheter placement. Patient currently on Plavix. Temporary catheter will be placed for conversion to perm catheter after the Plavix has been stopped for 5 days. MEDICAL HISTORY : CAD, GERD, Diabetes, HTN, Hypothyroidism, HLD SURGICAL HISTORY : Cholecystectomy, Dialysis catheter ENCOUNTER: Initial ACUITY: 1 week PAIN SCORE: 0/10 FLUORO TIME: 0.9 minutes IMAGE SERIES: 1 ACCESS: Right internal jugular vein DEVICE(S): 1.) 14 [place] dual lumen 15 cm Schon catheter PROCEDURE : 1. Ultrasound guided venipuncture. 2. Fluoroscopic guidance. 3. Central line placement. The risks, benefits and alternatives to the procedure were explained and verbal and written consent w as obtained. The site was prepped in sterile fashion. Full sterile technique was used, including ca p, mask, sterile gloves and gown and a large sterile sheet. Hand hygiene and 2% chlorhexidine prep w as utilized per protocol for cutaneous antisepsis with appropriate dry time for site. Sterile gel an d sterile probe cover were utilized for ultrasound guidance. The skin and subcutaneous tissues were infiltrated with local anesthetic solution. A suitable site a dante the vein was selected with ultrasound and fluoroscopic guidance. A small incision was made. Th e vein was accessed under direct ultrasound visualization using the micropuncture technique. The yesi ropuncture set was exchanged for a 0.035 wire. The tract was dilated. The catheter was advanced int o position under direct fluoroscopic visualization. The catheter was fixed in place with suture and a sterile dressing was applied. The patient tolerated the procedure well and there were no complications. CONCLUSION: Uncomplicated line placement as above. Mauricio Castro Jr., MD on March 09, 2018 at 9:47 Board Certified Radiologist. This report was verified electronically.
--- NOTE | 2018-03-09 10:36 | HHI.NPPN ---
Subjective General Problems: Anemia Renal Failure: Chronic, Stage V History of Present Illness Patient is a 52 year old female with past medical history of diabetes mellitus for more than 20 years, coronary artery disease, hyperlipidemia, hypertension, chronic kidney disease, GERD, and hypothyroidism. Patient presented to hospital with nausea and vomiting. In the emergency room she was found to be hypertensive with and SBP in the 200's. She was initially treated with a cardene gtt. Her blood pressure continues to be elevated but has improved. Nephrology was consulted for elevated creatinine and BUN and having a history of needing dialysis in July. Creatinine is noted to be 4.48 today which has been increasing since admission creatinine of 3.72. Potassium is stable at 4.7. Patient does not have health insurance and has not been followed by a modern greek studies professor outpatient. She reports that she has been complaint with medication except for insulin which she has not been able to afford. Additional Remarks Vas cath placed today unable to place permacath secondary to Plavix. Seen during hemodialysis. (Shira Frank) Review of Systems General Constitutional: Fatigue (Shira Frank) Cardiovascular Cardiac: Edema Cardiac Remarks Denies any chest pain (Shira Frank) Objective Data Data Vital Signs Date Time Temp Pulse Resp B/P (MAP) Pulse Ox O2 Delivery O2 Flow Rate FiO2 03/09/18 08:45 97.6 80 18 179/79 (112) 96 03/09/18 04:00 97.6 70 18 155/72 (99) 95 03/09/18 00:00 97.7 73 18 152/67 (95) 95 03/08/18 20:00 97.9 68 18 173/79 (110) 97 03/08/18 15:27 97.6 71 20 162/79 (106) 98 03/08/18 12:25 97.6 66 20 145/68 (93) 96 (Shira Frank) -: 03/09/18 0507 03/09/18 0507 Imaging Last Impressions Catheter Placement X-Ray 03/09/18 3456 Signed Impressions: Service Date/Time: Friday, March 09, 2018 09:14 - CONCLUSION: Uncomplicated line placement as above. Mauricio Castro Jr., MD Renal Ultrasound 03/07/18 0000 Signed Impressions: Service Date/Time: Wednesday, March 07, 2018 15:48 - CONCLUSION: 1. Kidneys appear slightly smaller when compared to the prior exam previously measuring 10.2 cm on the right and 10.5 on the left (now measuring 8.1 cm on the right and 9.5 on the left). Findings may be partly technical although some degree of chronic medical renal disease cannot be excluded. 2. Otherwise negative. No hydronephrosis or nephrolithiasis. Lemuel Ahuja MD Tubes & Lines: Vas-Cath Tubes & Lines Comment right chest wall (Shira Frank) Physical Exam General Appearance: No Acute Distress, Comfortable (Shira Frank OIL HEAT TECHNICIAN) Pulmonary Resp Exam: Breath Sounds Equal, No Distress (Shira Frank OIL HEAT TECHNICIAN) Gastrointestinal/Abdomen GI Exam: Non-Tender, Bowel Sounds Present, Distended (Shira Frank OIL HEAT TECHNICIAN) Genitourinary Exam: Flank Non-Tender (Shira Frank OIL HEAT TECHNICIAN) Integumentary Skin Exam: Clear, Warm, Dry (Shira Frank OIL HEAT TECHNICIAN) Extremeties Extremities Exam: Moderate Edema (Shira FrankP) Neurologic Neuro Exam: Alert, Awake (Shira FrankP) Psychiatric Psych Exam: Appropriate Responses (Shira Frank) Assessment/Plan Problem List: (1) Renal failure (ARF), acute on chronic ICD Codes: N17.9 - Acute kidney failure, unspecified; N18.9 - Chronic kidney disease, unspecified Plan: May have mild acute kidney injury with a creatinine of 4.48 which has increased from 3.72 on admission may be related to hypertensive crisis or poor intake. Chronic kidney disease stage 5 per records. Proteinuria noted. Possible related to hypertensive/renovascular disease/ diabetic nephropathy Has history of Hemodialysis X 1 in July Renal US: Kidneys appear slightly smaller when compared to the prior exam previously measuring 10.2 cm on the right and 10.5 on the left (now measuring 8.1 cm on the right and 9.5 on the left). Findings may be partly technical although some degree of chronic medical renal disease cannot be excluded. Otherwise negative. No hydronephrosis or nephrolithiasis. Plan Avoid Nephrotoxins Serology in July reviewed. Follow the urine out put and BMP. Hemodialysis today via vas cath UF of 2 liters tolerated well Anemia getting epogen with dialysis. Will order venofer X 3 days Will need Cardiology to decide if can hold Plavix for few days to get PermCath and AVF. Case management consulted to arrange outpatient Dialysis (2) Chronic kidney disease, stage 5 ICD Codes: N18.5 - Chronic kidney disease, stage 5 Plan: Proceeded with hemodialysis (3) Hypertension ICD Codes: I10 - Essential (primary) hypertension Plan: Hypertension improved. will monitor (4) Diabetes ICD Codes: E11.9 - Type 2 diabetes mellitus without complications Status: Chronic Plan: Maintain BS between 140 mg/dl to 180 mg/dl. (Shira Frank) Problem List: (1) Renal failure (ARF), acute on chronic ICD Codes: N17.9 - Acute kidney failure, unspecified; N18.9 - Chronic kidney disease, unspecified Plan: May have mild acute kidney injury with a creatinine of 4.48 which has increased from 3.72 on admission may be related to hypertensive crisis or poor intake. Chronic kidney disease stage 5 per records. Proteinuria noted. Possible related to hypertensive/renovascular disease/ diabetic nephropathy Has history of Hemodialysis X 1 in July Renal US: Kidneys appear slightly smaller when compared to the prior exam previously measuring 10.2 cm on the right and 10.5 on the left (now measuring 8.1 cm on the right and 9.5 on the left). Findings may be partly technical although some degree of chronic medical renal disease cannot be excluded. Otherwise negative. No hydronephrosis or nephrolithiasis. Plan Avoid Nephrotoxins Serology in July reviewed. Follow the urine out put and BMP. Hemodialysis today via vas cath UF of 2 liters tolerated well Anemia getting epogen with dialysis. Will order venofer X 3 days Will need Cardiology to decide if can hold Plavix for few days to get PermCath and AVF. Case management consulted to arrange outpatient Dialysis Patient seen and examined, agree with above. Patient is still not decided about HD or PD. (2) Chronic kidney disease, stage 5 ICD Codes: N18.5 - Chronic kidney disease, stage 5 Plan: Proceeded with hemodialysis (3) Hypertension ICD Codes: I10 - Essential (primary) hypertension Plan: Hypertension improved. will monitor (4) Diabetes ICD Codes: E11.9 - Type 2 diabetes mellitus without complications Status: Chronic Plan: Maintain BS between 140 mg/dl to 180 mg/dl. (Adebayo Balderas MD) Shira Frank Mar 09, 2018 10:36 Adebayo Balderas MD Mar 10, 2018 19:10
--- NOTE | 2018-03-09 15:38 | HHI.PR ---
Subjective Remarks Patient had hemodialysis today she feels and looks better We will follow renal recommendation and will need block and case maker for outpatient HD arrangement Objective Vitals Vital Signs Date Time Temp Pulse Resp B/P (MAP) Pulse Ox O2 Delivery O2 Flow Rate FiO2 03/09/18 14:34 21 03/09/18 13:04 97.4 67 18 164/79 (107) 99 03/09/18 08:45 97.6 80 18 179/79 (112) 96 03/09/18 04:00 97.6 70 18 155/72 (99) 95 03/09/18 00:00 97.7 73 18 152/67 (95) 95 03/08/18 20:00 97.9 68 18 173/79 (110) 97 I/O 03/08/18 03/08/18 03/08/18 03/09/18 03/09/18 03/09/18 07:00 15:00 23:00 07:00 15:00 23:00 Intake Total 720 ml Output Total 2000 ml Balance 720 ml -2000 ml Intake Oral 720 ml Hemodialysis 2000 ml # Voids 3 3 4 Result Diagram: 03/09/18 0507 03/09/18 0507 Objective Remarks GENERAL: This is a 52 years old female well-developed, looks slightly shaky CARDIOVASCULAR: RRR, no gallops, or rubs. RESPIRATORY: Fair air entry bilaterally. No W, R, or R GASTROINTESTINAL: Abdomen soft, non-tender, nondistended. Positive bowel sounds MUSCULOSKELETAL: Extremities without clubbing, cyanosis, or edema. Pedal pulses appreciated NEUROLOGICAL: Awake and alert. Moves all extremity. Normal speech.no focal neurological deficit A/P Assessment and Plan 52-year-old female admitted secondary to hypertensive urgency with hyperemesis. 03/09: Started on hemodialysis today, continue per nephrology recommendation, avoid nephrotoxin, follow with regulator inspector w discussed with nurse and with block and case maker for further post discharge hemodialysis arrangement A/P: Dyspnea on exertion COPD exacerbation Continue nebulizers Continue oxygen as needed Treat GERD with reflux medicines Hypertensive Urgency Status post Cardene drip Improved now on hydrochlorothiazide, hydralazine, monitor blood pressure Chronic kidney disease stage IV Patient was placed on hemodialysis in the past she is supposed to follow-up with nephrology CAD Elevated troponins Mostly demand perfusion mismatch No chest pain ASA, plavix continue Diabetes mellitus Diabetic diet, Accu-Chek with insulin sliding scale, continue Levemir Hypothyroidism Continue Synthroid Follows an outpatient Hyperlipidemia Continue statin. Patient DVT prophylaxis SCDs Linette Gates MD Mar 09, 2018 15:38
[2018-03-09] MEDS: ATORVASTATIN 40 MG TAB PO SCH (21:11)
[2018-03-09] MEDS: INSULIN DETEMIR 100 UNITS/ML VIAL SQ SCH (21:11)
[2018-03-09] MEDS: ZOLPIDEM TARTRATE 5 MG TAB PO PRN (21:11)
[2018-03-10] VITALS (7 sets, daily range): BP systolic 140–198; BP diastolic 64–91; PULSE 63–85; RESP 17–20; TEMP 97.4–98.4; O2SAT 94–98
[2018-03-10] MEDS: methylPREDNISolone SOD SUCC 40 MG/1 ML VIAL IV PUSH SCH ×2 (03:08→12:58)
[2018-03-10] MEDS: INSULIN NovoLIN REGULAR SUPPLEMENTAL SCALE SQ SCH ×5 (03:13→21:03)
[2018-03-10] MEDS: cloNIDine HCL 0.1 MG TAB PO PRN (03:20)
[2018-03-10] MEDS: CHLORHEXIDINE GLUCONATE 2 % 1 PACK (2 CLOTHS) TOP SCH (04:00)
[2018-03-10] MEDS: LEVOTHYROXINE SODIUM 50 MCG TAB PO SCH (06:32)
[2018-03-10] MEDS: HEPARIN SODIUM - SQ 10,000 UNITS/ML VIAL SQ SCH ×2 (06:32→17:43)
[2018-03-10 07:10] LABS: HEMATOCRIT 26.1 % (35.0-46.0); HEMOGLOBIN 9.1 GM/DL (11.6-15.3); MEAN CELL VOLUME 80.4 FL (80.0-100.0); MEAN CORPUSCULAR HEMOGLOBIN 27.9 PG (27.0-34.0); MEAN CORPUSCULAR HGB CONC 34.7 % (32.0-36.0); MEAN PLATELET VOLUME 9.3 FL (7.0-11.0); PLATELET COUNT 207 TH/MM3 (150-450); RED BLOOD COUNT 3.25 MIL/MM3 (4.00-5.30); RED CELL DISTRIBUTION WIDTH 15.4 % (11.6-17.2); WHITE BLOOD COUNT 11.3 TH/MM3 (4.0-11.0)
[2018-03-10 07:47] LABS: BICARBONATE 21.3 MEQ/L (21.0-32.0); CALCIUM 9.1 MG/DL (8.5-10.1); CREATININE 3.7 MG/DL (0.50-1.00)
[2018-03-10] MEDS: INSULIN HUMAN NPH 1,000 UNITS/10 ML VIAL SQ SCH ×3 (08:15→17:42)
[2018-03-10] MEDS: IRON SUCROSE INJ 200 MG in SODIUM CHLORIDE 0.9% INJ 100 ML IV SCH (08:18)
[2018-03-10] MEDS: hydrALAZINE HCL 50 MG TAB PO SCH ×3 (08:19→17:41)
[2018-03-10] MEDS: SODIUM BICARBONATE 650 MG TAB PO SCH ×2 (08:20→20:56)
[2018-03-10] MEDS: CLOPIDOGREL 75 MG TAB PO SCH (08:20)
[2018-03-10] MEDS: PANTOPRAZOLE SOD 40 MG DELAYED RELEASE TAB PO SCH ×2 (08:20→20:52)
[2018-03-10] MEDS: cloNIDine HCL 0.1 MG TAB PO SCH ×2 (08:20→20:56)
[2018-03-10] MEDS: HYDROCHLOROTHIAZIDE 25 MG TAB PO SCH (08:20)
[2018-03-10] MEDS: CARVEDILOL 12.5 MG TAB PO SCH ×2 (08:20→20:56)
--- NOTE | 2018-03-10 16:01 | HHI.PR ---
Subjective Remarks Patient reports she is feeling while today. Breathing comfortable. Objective Vitals Vital Signs Date Time Temp Pulse Resp B/P (MAP) Pulse Ox O2 Delivery O2 Flow Rate FiO2 03/10/18 11:54 97.4 66 20 186/83 (117) 97 03/10/18 11:15 97 03/10/18 07:59 97.7 63 20 165/77 (106) 97 03/10/18 04:00 97.7 68 18 185/81 (115) 98 03/10/18 00:00 97.6 72 18 162/74 (103) 95 03/09/18 21:53 98 21 03/09/18 20:20 97.6 63 18 173/78 (109) 97 03/09/18 20:00 97.6 63 18 173/78 (109) 97 03/09/18 16:00 97.8 70 18 180/78 (112) 97 I/O 03/09/18 03/09/18 03/09/18 03/10/18 03/10/18 03/10/18 07:00 15:00 23:00 07:00 15:00 23:00 Intake Total 480 ml Output Total 2000 ml 2000 ml Balance -1520 ml -2000 ml Intake Oral 480 ml Hemodialysis 2000 ml 2000 ml # Voids 4 3 3 3 # Bowel Movements 1 Result Diagram: 03/10/18 0632 03/10/18 0632 Objective Remarks GENERAL: No acute distress. CARDIOVASCULAR: RRR, no gallops, or rubs. RESPIRATORY: Air movement is fair. No wheezing or rhonchi. GASTROINTESTINAL: Abdomen soft, non-tender, nondistended. Positive bowel sounds MUSCULOSKELETAL: Extremities without clubbing, cyanosis, or edema. Pedal pulses appreciated NEUROLOGICAL: Awake and alert. Moves all extremity. Normal speech.no focal neurological deficit A/P Assessment and Plan 52-year-old female admitted secondary to hypertensive urgency with hyperemesis. Dyspnea on exertion COPD exacerbation Continue nebulizers Continue oxygen as needed Treat GERD with antireflux medications Transition to oral prednisone. Hypertensive Urgency Status post Cardene drip Improved now on hydrochlorothiazide, hydralazine, monitor blood pressure Chronic kidney disease stage IV Started on hemodialysis, continue per nephrology recommendation, avoid nephrotoxin, follow with pump operator Need outpatient set up for hemodialysis. CAD Elevated troponins Mostly demand perfusion mismatch No chest pain ASA, plavix continue Diabetes mellitus Diabetic diet, Accu-Chek with insulin sliding scale, continue Levemir. Not well controlled. Increase Levemir to 25 units at bedtime. Hypothyroidism Continue Synthroid Follows an outpatient Hyperlipidemia Continue statin. Patient DVT prophylaxis SCDs Hardik King MD Mar 10, 2018 16:01
--- NOTE | 2018-03-10 17:21 | HHI.NPPN ---
Subjective General Problems: Anemia Renal Failure: Chronic, Stage V History of Present Illness Patient is a 52 year old female with past medical history of diabetes mellitus for more than 20 years, coronary artery disease, hyperlipidemia, hypertension, chronic kidney disease, GERD, and hypothyroidism. Patient presented to hospital with nausea and vomiting. In the emergency room she was found to be hypertensive with and SBP in the 200's. She was initially treated with a cardene gtt. Her blood pressure continues to be elevated but has improved. Nephrology was consulted for elevated creatinine and BUN and having a history of needing dialysis in July. Creatinine is noted to be 4.48 today which has been increasing since admission creatinine of 3.72. Potassium is stable at 4.7. Patient does not have health insurance and has not been followed by a signal intelligence/electronic warfare outpatient. She reports that she has been complaint with medication except for insulin which she has not been able to afford. Additional Remarks Hemodialysis today. Patient is feeling a little depressed today. Lower extremity edema. (Shira Frank) Review of Systems General Constitutional: Fatigue (Shira Frank) Cardiovascular Cardiac: Edema Cardiac Remarks Denies any chest pain (Shira Frank) Objective Data Data 03/10/18 03/11/18 19:00 07:00 Output Total 2000 ml Balance -2000 ml Hemodialysis 2000 ml # Bowel Movements 1 Vital Signs Date Time Temp Pulse Resp B/P (MAP) Pulse Ox O2 Delivery O2 Flow Rate FiO2 03/10/18 15:59 98.0 70 20 190/88 (122) 98 03/10/18 11:54 97.4 66 20 186/83 (117) 97 03/10/18 11:15 97 03/10/18 07:59 97.7 63 20 165/77 (106) 97 03/10/18 04:00 97.7 68 18 185/81 (115) 98 03/10/18 00:00 97.6 72 18 162/74 (103) 95 03/09/18 21:53 98 21 03/09/18 20:20 97.6 63 18 173/78 (109) 97 03/09/18 20:00 97.6 63 18 173/78 (109) 97 (Shira Frank) -: 03/10/18 0632 03/10/18 0632 Imaging Last Impressions Catheter Placement X-Ray 03/09/18 1754 Signed Impressions: Service Date/Time: Friday, March 09, 2018 09:14 - CONCLUSION: Uncomplicated line placement as above. Mauricio Castro Jr., MD Renal Ultrasound 03/07/18 0000 Signed Impressions: Service Date/Time: Wednesday, March 07, 2018 15:48 - CONCLUSION: 1. Kidneys appear slightly smaller when compared to the prior exam previously measuring 10.2 cm on the right and 10.5 on the left (now measuring 8.1 cm on the right and 9.5 on the left). Findings may be partly technical although some degree of chronic medical renal disease cannot be excluded. 2. Otherwise negative. No hydronephrosis or nephrolithiasis. Lemuel Ahuja MD Tubes & Lines: Vas-Cath Tubes & Lines Comment right chest wall (Shira Frank) Physical Exam General Appearance: No Acute Distress, Comfortable (Shira Frank) Pulmonary Resp Exam: Breath Sounds Equal, No Distress (Shira Frank) Gastrointestinal/Abdomen GI Exam: Non-Tender, Bowel Sounds Present, Distended (Shira FrankP) Genitourinary Exam: Flank Non-Tender (Shira Frank) Integumentary Skin Exam: Clear, Warm, Dry (Shira Frank) Extremeties Extremities Exam: Moderate Edema (Shira Frank) Neurologic Neuro Exam: Alert, Awake (Shira Frank) Psychiatric Psych Exam: Appropriate Responses (Shira Frank) Assessment/Plan Problem List: (1) Renal failure (ARF), acute on chronic ICD Codes: N17.9 - Acute kidney failure, unspecified; N18.9 - Chronic kidney disease, unspecified Plan: May have mild acute kidney injury with a creatinine of 4.48 which has increased from 3.72 on admission may be related to hypertensive crisis or poor intake. Chronic kidney disease stage 5 per records. Proteinuria noted. Possible related to hypertensive/renovascular disease/ diabetic nephropathy Has history of Hemodialysis X 1 in July Renal US: Kidneys appear slightly smaller when compared to the prior exam previously measuring 10.2 cm on the right and 10.5 on the left (now measuring 8.1 cm on the right and 9.5 on the left). Findings may be partly technical although some degree of chronic medical renal disease cannot be excluded. Otherwise negative. No hydronephrosis or nephrolithiasis. Plan Hypertensive will increase coreg Avoid Nephrotoxins Serology in July. Avoid IVF administration Hemodialysis yesterday and today. Anemia getting epogen with dialysis and venofer X 3 doses Will need Cardiology to decide if can hold Plavix for few days to get PermCath and AVF. Case management consulted to arrange outpatient Dialysis (2) Chronic kidney disease, stage 5 ICD Codes: N18.5 - Chronic kidney disease, stage 5 Plan: Proceeded with hemodialysis (3) Hypertension ICD Codes: I10 - Essential (primary) hypertension Plan: Hypertension improved. will monitor (4) Diabetes ICD Codes: E11.9 - Type 2 diabetes mellitus without complications Status: Chronic Plan: Maintain BS between 140 mg/dl to 180 mg/dl. (Shira Frank) Problem List: (1) Renal failure (ARF), acute on chronic ICD Codes: N17.9 - Acute kidney failure, unspecified; N18.9 - Chronic kidney disease, unspecified Plan: May have mild acute kidney injury with a creatinine of 4.48 which has increased from 3.72 on admission may be related to hypertensive crisis or poor intake. Chronic kidney disease stage 5 per records. Proteinuria noted. Possible related to hypertensive/renovascular disease/ diabetic nephropathy Has history of Hemodialysis X 1 in July Renal US: Kidneys appear slightly smaller when compared to the prior exam previously measuring 10.2 cm on the right and 10.5 on the left (now measuring 8.1 cm on the right and 9.5 on the left). Findings may be partly technical although some degree of chronic medical renal disease cannot be excluded. Otherwise negative. No hydronephrosis or nephrolithiasis. Plan Hypertensive will increase coreg Avoid Nephrotoxins Serology in July. Avoid IVF administration Hemodialysis yesterday and today. Anemia getting epogen with dialysis and venofer X 3 doses Will need Cardiology to decide if can hold Plavix for few days to get PermCath and AVF. Case management consulted to arrange outpatient Dialysis. Patient seen and examined, agree with above. will get PD Nurse to educate the patient and decide about PD or HD. (2) Chronic kidney disease, stage 5 ICD Codes: N18.5 - Chronic kidney disease, stage 5 Plan: Proceeded with hemodialysis (3) Hypertension ICD Codes: I10 - Essential (primary) hypertension Plan: Hypertension improved. will monitor (4) Diabetes ICD Codes: E11.9 - Type 2 diabetes mellitus without complications Status: Chronic Plan: Maintain BS between 140 mg/dl to 180 mg/dl. (Adebayo Balderas MD) Problem Qualifiers (1) Hypertension: Qualified Codes: I10 - Essential (primary) hypertension Shira Frank Mar 10, 2018 17:21 Adebayo Balderas MD Mar 11, 2018 18:54
[2018-03-10] MEDS: ZOLPIDEM TARTRATE 5 MG TAB PO PRN (20:52)
[2018-03-10] MEDS: predniSONE 20 MG TAB PO SCH (20:52)
[2018-03-10] MEDS: ATORVASTATIN 40 MG TAB PO SCH (20:56)
[2018-03-10] MEDS: INSULIN DETEMIR 100 UNITS/ML VIAL SQ SCH (21:03)
[2018-03-11] VITALS (7 sets, daily range): BP systolic 144–183; BP diastolic 70–86; PULSE 63–70; RESP 16–20; TEMP 97.7–98.2; O2SAT 95–98
[2018-03-11] MEDS: INSULIN NovoLIN REGULAR SUPPLEMENTAL SCALE SQ SCH ×5 (02:04→21:57)
[2018-03-11] MEDS: CHLORHEXIDINE GLUCONATE 2 % 1 PACK (2 CLOTHS) TOP SCH (02:04)
[2018-03-11] MEDS: cloNIDine HCL 0.1 MG TAB PO PRN (04:34)
[2018-03-11] MEDS: LEVOTHYROXINE SODIUM 50 MCG TAB PO SCH (06:31)
[2018-03-11] MEDS: HEPARIN SODIUM - SQ 10,000 UNITS/ML VIAL SQ SCH ×2 (06:31→17:40)
[2018-03-11] MEDS: SODIUM BICARBONATE 650 MG TAB PO SCH ×2 (08:23→21:56)
[2018-03-11] MEDS: IRON SUCROSE INJ 200 MG in SODIUM CHLORIDE 0.9% INJ 100 ML IV SCH (08:23)
[2018-03-11] MEDS: CARVEDILOL 12.5 MG TAB PO SCH ×2 (08:24→21:56)
[2018-03-11] MEDS: HYDROCHLOROTHIAZIDE 25 MG TAB PO SCH (08:24)
[2018-03-11] MEDS: cloNIDine HCL 0.1 MG TAB PO SCH ×2 (08:24→21:56)
[2018-03-11] MEDS: CLOPIDOGREL 75 MG TAB PO SCH (08:25)
[2018-03-11] MEDS: hydrALAZINE HCL 50 MG TAB PO SCH ×3 (08:25→17:39)
[2018-03-11] MEDS: ACETAMINOPHEN 325 MG TAB PO PRN (08:26)
[2018-03-11] MEDS: predniSONE 20 MG TAB PO SCH (08:26)
[2018-03-11] MEDS: PANTOPRAZOLE SOD 40 MG DELAYED RELEASE TAB PO SCH ×2 (08:27→21:58)
[2018-03-11] MEDS: VITAMIN B CMPLX/VITC/FOLIC AC CAP PO SCH (08:27)
[2018-03-11] MEDS: INSULIN HUMAN NPH 1,000 UNITS/10 ML VIAL SQ SCH ×3 (08:27→17:40)
[2018-03-11 08:58] LABS: BICARBONATE 26.7 MEQ/L (21.0-32.0); CALCIUM 8.5 MG/DL (8.5-10.1); CREATININE 2.89 MG/DL (0.50-1.00)
--- NOTE | 2018-03-11 15:18 | HHI.PR ---
Subjective Remarks Patient reports she is feeling okay. BP has been elevated but is now better. Objective Vitals Vital Signs Date Time Temp Pulse Resp B/P (MAP) Pulse Ox O2 Delivery O2 Flow Rate FiO2 03/11/18 13:00 98 21 03/11/18 11:32 98.2 64 20 149/70 (96) 96 03/11/18 07:51 98.0 63 20 175/81 (112) 97 03/11/18 04:39 97.7 67 18 183/86 (118) 95 03/11/18 00:59 97.8 70 18 157/82 (107) 96 03/10/18 19:50 98.4 69 17 198/91 (126) 97 03/10/18 15:59 98.0 70 20 190/88 (122) 98 I/O 03/10/18 03/10/18 03/10/18 03/11/18 03/11/18 03/11/18 07:00 15:00 23:00 07:00 15:00 23:00 Output Total 2000 ml Balance -2000 ml Hemodialysis 2000 ml # Voids 3 # Bowel Movements 1 1 Result Diagram: 03/10/18 0632 03/11/18 0732 Objective Remarks GENERAL: No acute distress. CARDIOVASCULAR: RRR, no gallops, or rubs. RESPIRATORY: Air movement is fair. No wheezing or rhonchi. GASTROINTESTINAL: Abdomen soft, non-tender, nondistended. Positive bowel sounds MUSCULOSKELETAL: Extremities without clubbing, cyanosis, or edema. Pedal pulses appreciated NEUROLOGICAL: Awake and alert. Moves all extremity. Normal speech.no focal neurological deficit A/P Assessment and Plan 52-year-old female admitted secondary to hypertensive urgency with hyperemesis. Dyspnea on exertion COPD exacerbation Continue nebulizers Continue oxygen as needed Treat GERD with antireflux medications Stable from a respiratory standpoint. Discontinue prednisone. Hypertensive Urgency Status post Cardene drip Improved now on hydrochlorothiazide, hydralazine, monitor blood pressure. Expect improvement with discontinuation of steroids. Chronic kidney disease stage IV Started on hemodialysis, continue per nephrology recommendation, avoid nephrotoxin, follow with regional education manager Need outpatient set up for hemodialysis. CAD Elevated troponins Mostly demand perfusion mismatch No chest pain ASA, plavix continue Diabetes mellitus Diabetic diet, Accu-Chek with insulin sliding scale, continue Levemir. Not well controlled. Increase Levemir to 25 units at bedtime. Hypothyroidism Continue Synthroid Follows an outpatient Hyperlipidemia Continue statin. Patient DVT prophylaxis SCDs Discharge Planning Can be discharged once outpatient hemodialysis is set up. Hardik King MD Mar 11, 2018 15:18
--- NOTE | 2018-03-11 16:07 | HHI.NPPN ---
Subjective General Problems: Anemia Renal Failure: Chronic, Stage V History of Present Illness Patient is a 52 year old female with past medical history of diabetes mellitus for more than 20 years, coronary artery disease, hyperlipidemia, hypertension, chronic kidney disease, GERD, and hypothyroidism. Patient presented to hospital with nausea and vomiting. In the emergency room she was found to be hypertensive with and SBP in the 200's. She was initially treated with a cardene gtt. Her blood pressure continues to be elevated but has improved. Nephrology was consulted for elevated creatinine and BUN and having a history of needing dialysis in July. Creatinine is noted to be 4.48 today which has been increasing since admission creatinine of 3.72. Potassium is stable at 4.7. Patient does not have health insurance and has not been followed by a relief pharmacist outpatient. She reports that she has been complaint with medication except for insulin which she has not been able to afford. Additional Remarks Sitting on side of bed. Reports that sleeping medication is not working well. Also reports lower extremity swelling. (Shira Frank) Review of Systems General Constitutional: Fatigue (Shira Frank) Cardiovascular Cardiac: Edema Cardiac Remarks Denies any chest pain (Shira Frank) Objective Data Data 03/11/18 03/12/18 19:00 07:00 Intake Total 600 ml Balance 600 ml Intake Oral 600 ml # Voids 3 # Bowel Movements 2 Vital Signs Date Time Temp Pulse Resp B/P (MAP) Pulse Ox O2 Delivery O2 Flow Rate FiO2 03/11/18 15:17 97.8 67 20 144/71 (95) 98 03/11/18 13:00 98 21 03/11/18 11:32 98.2 64 20 149/70 (96) 96 03/11/18 07:51 98.0 63 20 175/81 (112) 97 03/11/18 04:39 97.7 67 18 183/86 (118) 95 03/11/18 00:59 97.8 70 18 157/82 (107) 96 03/10/18 19:50 98.4 69 17 198/91 (126) 97 (Shira Frank) -: 03/10/18 0632 03/11/18 0732 Tubes & Lines: Vas-Cath Tubes & Lines Comment right chest wall (Shira Frank) Physical Exam General Appearance: No Acute Distress, Comfortable (Shira Frank) Pulmonary Resp Exam: Breath Sounds Equal, No Distress (Shira Frank) Gastrointestinal/Abdomen GI Exam: Non-Tender, Bowel Sounds Present, Distended (Shira Frank) Genitourinary Exam: Flank Non-Tender (Shira Frank) Integumentary Skin Exam: Clear, Warm, Dry (Shira Frank) Extremeties Extremities Exam: Moderate Edema (Shira Frank) Neurologic Neuro Exam: Alert, Awake (Shira Frank) Psychiatric Psych Exam: Appropriate Responses (Shira Frank) Assessment/Plan Problem List: (1) Renal failure (ARF), acute on chronic ICD Codes: N17.9 - Acute kidney failure, unspecified; N18.9 - Chronic kidney disease, unspecified Plan: May have mild acute kidney injury with a creatinine of 4.48 which has increased from 3.72 on admission may be related to hypertensive crisis or poor intake. Chronic kidney disease stage 5 per records. Proteinuria noted. Possible related to hypertensive/renovascular disease/ diabetic nephropathy Has history of Hemodialysis X 1 in July Renal US: Kidneys appear slightly smaller when compared to the prior exam previously measuring 10.2 cm on the right and 10.5 on the left (now measuring 8.1 cm on the right and 9.5 on the left). Findings may be partly technical although some degree of chronic medical renal disease cannot be excluded. Otherwise negative. No hydronephrosis or nephrolithiasis. Plan Avoid IVF administration Reports insomnia, Ambien increased Lower extremity edema will add Lasix tomorrow if not improved. Avoid Nephrotoxins Hemodialysis yesterday with UF of 2 liters tolerated well Anemia getting epogen with dialysis. Venofer X 3 days Will need Cardiology to decide if can hold Plavix for few days to get PermCath and AVF. Case management consulted to arrange outpatient Dialysis (2) Chronic kidney disease, stage 5 ICD Codes: N18.5 - Chronic kidney disease, stage 5 Plan: Proceeded with hemodialysis (3) Hypertension ICD Codes: I10 - Essential (primary) hypertension Plan: Hypertension improved. will monitor (4) Diabetes ICD Codes: E11.9 - Type 2 diabetes mellitus without complications Status: Chronic Plan: Maintain BS between 140 mg/dl to 180 mg/dl. (Shira Frank) Problem List: (1) Renal failure (ARF), acute on chronic ICD Codes: N17.9 - Acute kidney failure, unspecified; N18.9 - Chronic kidney disease, unspecified Plan: May have mild acute kidney injury with a creatinine of 4.48 which has increased from 3.72 on admission may be related to hypertensive crisis or poor intake. Chronic kidney disease stage 5 per records. Proteinuria noted. Possible related to hypertensive/renovascular disease/ diabetic nephropathy Has history of Hemodialysis X 1 in July Renal US: Kidneys appear slightly smaller when compared to the prior exam previously measuring 10.2 cm on the right and 10.5 on the left (now measuring 8.1 cm on the right and 9.5 on the left). Findings may be partly technical although some degree of chronic medical renal disease cannot be excluded. Otherwise negative. No hydronephrosis or nephrolithiasis. Plan Avoid IVF administration Reports insomnia, Ambien increased Lower extremity edema will add Lasix tomorrow if not improved. Avoid Nephrotoxins Hemodialysis yesterday with UF of 2 liters tolerated well Anemia getting epogen with dialysis. Venofer X 3 days Will need Cardiology to decide if can hold Plavix for few days to get PermCath and AVF. Case management consulted to arrange outpatient Dialysis. Patient seen and examined, agree with above. Patient possibly want to go for PD. If decided, will call surgery. (2) Chronic kidney disease, stage 5 ICD Codes: N18.5 - Chronic kidney disease, stage 5 Plan: Proceeded with hemodialysis (3) Hypertension ICD Codes: I10 - Essential (primary) hypertension Plan: Hypertension improved. will monitor (4) Diabetes ICD Codes: E11.9 - Type 2 diabetes mellitus without complications Status: Chronic Plan: Maintain BS between 140 mg/dl to 180 mg/dl. (Adebayo Balderas MD) Problem Qualifiers (1) Hypertension: Qualified Codes: I10 - Essential (primary) hypertension Shira Frank Mar 11, 2018 16:06 Adebayo Balderas MD Mar 11, 2018 19:09
[2018-03-11] MEDS: ATORVASTATIN 40 MG TAB PO SCH (21:56)
[2018-03-11] MEDS: ZOLPIDEM TARTRATE 5 MG TAB PO PRN (21:57)
[2018-03-11] MEDS: INSULIN DETEMIR 100 UNITS/ML VIAL SQ SCH (22:02)
[2018-03-12] VITALS: BP 166/76; PULSE 62; RESP 16; TEMP 97.6; O2SAT 95
[2018-03-12] MEDS: CHLORHEXIDINE GLUCONATE 2 % 1 PACK (2 CLOTHS) TOP SCH (04:00)
[2018-03-12] MEDS: INSULIN NovoLIN REGULAR SUPPLEMENTAL SCALE SQ SCH ×5 (04:18→21:40)
[2018-03-12] MEDS: LEVOTHYROXINE SODIUM 50 MCG TAB PO SCH (06:27)
[2018-03-12] MEDS: HEPARIN SODIUM - SQ 10,000 UNITS/ML VIAL SQ SCH ×2 (06:28→18:34)
[2018-03-12 08:00] VITALS: BP 175/74; PULSE 76; RESP 18; TEMP 98.8; O2SAT 97
[2018-03-12] MEDS: INSULIN HUMAN NPH 1,000 UNITS/10 ML VIAL SQ SCH ×3 (08:00→16:49)
[2018-03-12] MEDS: CLOPIDOGREL 75 MG TAB PO SCH (09:00)
[2018-03-12] MEDS: VITAMIN B CMPLX/VITC/FOLIC AC CAP PO SCH (09:00)
[2018-03-12] MEDS: HYDROCHLOROTHIAZIDE 25 MG TAB PO SCH (09:00)
[2018-03-12] MEDS: hydrALAZINE HCL 50 MG TAB PO SCH ×3 (09:00→17:32)
[2018-03-12] MEDS: PANTOPRAZOLE SOD 40 MG DELAYED RELEASE TAB PO SCH ×2 (09:00→21:40)
[2018-03-12] MEDS: cloNIDine HCL 0.1 MG TAB PO SCH ×2 (09:00→21:41)
[2018-03-12] MEDS: CARVEDILOL 12.5 MG TAB PO SCH ×2 (09:00→21:41)
[2018-03-12] MEDS: SODIUM BICARBONATE 650 MG TAB PO SCH ×2 (09:00→21:40)
--- NOTE | 2018-03-12 09:37 | HHI.NPPN ---
Subjective General Problems: Anemia Renal Failure: Chronic, Stage V History of Present Illness Patient is a 52 year old female with past medical history of diabetes mellitus for more than 20 years, coronary artery disease, hyperlipidemia, hypertension, chronic kidney disease, GERD, and hypothyroidism. Patient presented to hospital with nausea and vomiting. In the emergency room she was found to be hypertensive with and SBP in the 200's. She was initially treated with a cardene gtt. Her blood pressure continues to be elevated but has improved. Nephrology was consulted for elevated creatinine and BUN and having a history of needing dialysis in July. Creatinine is noted to be 4.48 today which has been increasing since admission creatinine of 3.72. Potassium is stable at 4.7. Patient does not have health insurance and has not been followed by a dry mill operator outpatient. She reports that she has been complaint with medication except for insulin which she has not been able to afford. Additional Remarks Seen during hemodialysis. Slept better last night. (Shira Frank) Review of Systems General Constitutional: Fatigue (Shira Frank) Cardiovascular Cardiac: Edema Cardiac Remarks Denies any chest pain (Shira Frank) Gastrointestinal GI Remarks Denies any abdominal pain (Shira Frank) Objective Data Data Vital Signs Date Time Temp Pulse Resp B/P (MAP) Pulse Ox O2 Delivery O2 Flow Rate FiO2 03/12/18 08:00 98.8 76 18 175/74 (107) 97 03/12/18 00:00 97.6 62 16 166/76 (106) 95 03/11/18 20:00 97.7 67 16 178/79 (112) 96 03/11/18 15:17 97.8 67 20 144/71 (95) 98 03/11/18 13:00 98 21 03/11/18 11:32 98.2 64 20 149/70 (96) 96 (Shira Frank) -: 03/10/18 0632 03/11/18 0732 Imaging Last Impressions Catheter Placement X-Ray 03/09/18 1204 Signed Impressions: Service Date/Time: Friday, March 09, 2018 09:14 - CONCLUSION: Uncomplicated line placement as above. Mauricio Castro Jr., MD Renal Ultrasound 03/07/18 0000 Signed Impressions: Service Date/Time: Wednesday, March 07, 2018 15:48 - CONCLUSION: 1. Kidneys appear slightly smaller when compared to the prior exam previously measuring 10.2 cm on the right and 10.5 on the left (now measuring 8.1 cm on the right and 9.5 on the left). Findings may be partly technical although some degree of chronic medical renal disease cannot be excluded. 2. Otherwise negative. No hydronephrosis or nephrolithiasis. Lemuel Ahuja MD Tubes & Lines: Vas-Cath Tubes & Lines Comment right chest wall (Shira Frank) Physical Exam General Appearance: No Acute Distress, Comfortable (Shira Frank MANAGER COMPENSATION) Pulmonary Resp Exam: Breath Sounds Equal, No Distress (Shira Frank MANAGER COMPENSATION) Gastrointestinal/Abdomen GI Exam: Non-Tender, Bowel Sounds Present, Distended (Shira Frank MANAGER COMPENSATION) Genitourinary Exam: Flank Non-Tender (Shira Frank MANAGER COMPENSATION) Integumentary Skin Exam: Clear, Warm, Dry (Shira Frank MANAGER COMPENSATION) Extremeties Extremities Exam: Moderate Edema (Shira Frank MANAGER COMPENSATION) Neurologic Neuro Exam: Alert, Awake (Shira FrankP) Psychiatric Psych Exam: Appropriate Responses (Shira Frank) Assessment/Plan Problem List: (1) Renal failure (ARF), acute on chronic ICD Codes: N17.9 - Acute kidney failure, unspecified; N18.9 - Chronic kidney disease, unspecified Plan: May have mild acute kidney injury with a creatinine of 4.48 which has increased from 3.72 on admission may be related to hypertensive crisis or poor intake. Chronic kidney disease stage 5 per records. Proteinuria noted. Possible related to hypertensive/renovascular disease/ diabetic nephropathy Has history of Hemodialysis X 1 in July Renal US: Kidneys appear slightly smaller when compared to the prior exam previously measuring 10.2 cm on the right and 10.5 on the left (now measuring 8.1 cm on the right and 9.5 on the left). Findings may be partly technical although some degree of chronic medical renal disease cannot be excluded. Otherwise negative. No hydronephrosis or nephrolithiasis. Plan Avoid IVF administration Avoid Nephrotoxins Seen during Hemodialysis Anemia getting epogen with dialysis. Venofer X 3 doses completed Hypertension, clonidine increased. Case management consulted to arrange outpatient Dialysis. Meet with PD educator yesterday and has decided to proceed with PD catheter placement. Surgery consulted for PD placement. (2) Chronic kidney disease, stage 5 ICD Codes: N18.5 - Chronic kidney disease, stage 5 Plan: Proceeded with hemodialysis (3) Hypertension ICD Codes: I10 - Essential (primary) hypertension Plan: Hypertension improved. will monitor (4) Diabetes ICD Codes: E11.9 - Type 2 diabetes mellitus without complications Status: Chronic Plan: Maintain BS between 140 mg/dl to 180 mg/dl. (Shira Frank) Problem List: (1) Renal failure (ARF), acute on chronic ICD Codes: N17.9 - Acute kidney failure, unspecified; N18.9 - Chronic kidney disease, unspecified Plan: May have mild acute kidney injury with a creatinine of 4.48 which has increased from 3.72 on admission may be related to hypertensive crisis or poor intake. Chronic kidney disease stage 5 per records. Proteinuria noted. Possible related to hypertensive/renovascular disease/ diabetic nephropathy Has history of Hemodialysis X 1 in July Renal US: Kidneys appear slightly smaller when compared to the prior exam previously measuring 10.2 cm on the right and 10.5 on the left (now measuring 8.1 cm on the right and 9.5 on the left). Findings may be partly technical although some degree of chronic medical renal disease cannot be excluded. Otherwise negative. No hydronephrosis or nephrolithiasis. Plan Avoid IVF administration Avoid Nephrotoxins Seen during Hemodialysis Anemia getting epogen with dialysis. Venofer X 3 doses completed Hypertension, clonidine increased. Case management consulted to arrange outpatient Dialysis. Meet with PD educator yesterday and has decided to proceed with PD catheter placement. Surgery consulted for PD placement. Patient seen and examined, agree with above. Agree for PD, surgery consulted. (2) Chronic kidney disease, stage 5 ICD Codes: N18.5 - Chronic kidney disease, stage 5 Plan: Proceeded with hemodialysis (3) Hypertension ICD Codes: I10 - Essential (primary) hypertension Plan: Hypertension improved. will monitor (4) Diabetes ICD Codes: E11.9 - Type 2 diabetes mellitus without complications Status: Chronic Plan: Maintain BS between 140 mg/dl to 180 mg/dl. (Adebayo Balderas MD) Problem Qualifiers (1) Hypertension: Qualified Codes: I10 - Essential (primary) hypertension Shira Frank Mar 12, 2018 09:37 Adebayo Balderas MD Mar 14, 2018 11:43
[2018-03-12 12:00] VITALS: BP 143/79; PULSE 72; RESP 20; TEMP 98.1; O2SAT 98
[2018-03-12] MEDS: IRON SUCROSE INJ 200 MG in SODIUM CHLORIDE 0.9% INJ 100 ML IV SCH (13:04)
--- NOTE | 2018-03-12 14:33 | PD.CONS ---
cc: Brock Casillas MD HPI Service General Surgery Consult Requested By Shira HERNANDEZ Reason for Consult Placement of peritoneal dialysis catheter Primary Care Physician No Primary Care Physician History of Present Illness This is a 52 year old female with a past medical history of CAD, insulin dependent diabetes mellitus, dyslipidemia, hypertension, chronic kidney disease , GERD ad hypothyroidism. The patient presented to the ED on March 03 with complaints of nausea/vomiting and high blood pressure. On admission the patient 's BUN and creatinine were 55 and 3.72 respectively. It continued to rise until dialysis was started. A Vascath was placed for traditional hemodialysis. The patient has had a discussion with the dialysis nurse and would like to transition to peritoneal dialysis. A General Surgery consultation has been requested for peritoneal dialysis catheter placement. Review of Systems Constitutional: DENIES: Fatigue, Weight gain, Weight loss, Change in appetite Endocrine: DENIES: Polydipsia, Polyuria, Polyphagia Eyes: DENIES: Diplopia Ears, nose, mouth, throat: DENIES: Hearing loss Respiratory: DENIES: Apneas Cardiovascular: DENIES: Chest pain Gastrointestinal: COMPLAINS OF: Nausea, Vomiting, DENIES: Abdominal pain Genitourinary: DENIES: Urinary frequency Musculoskeletal: DENIES: Joint pain Integumentary: DENIES: Abnormal pigmentation Hematologic/lymphatic: DENIES: Bruising Immunologic/allergic: DENIES: Eczema Neurologic: COMPLAINS OF: Headache, DENIES: Localized weakness, Paresthesias Psychiatric: DENIES: Confusion, Mood changes, Depression Past Family Social History Past Medical History CAD Diabetes mellitus Dyslipidemia Hypertension Chronic kidney disease GERD Hypothyroidism Past Surgical History Vas cath placement Tubal ligation Laparoscopic cholecystectomy C section x1 Reported Medications Plavix Atorvastatin Catapres Hydralazine Coreg Amlodipine Levemir Synthroid Allergies: Coded Allergies: cephalexin (Verified Allergy, Severe, 10/23/17) Active Ordered Medications Current Medications Medications (Trade) Dose Ordered Sig/Stephan Route Start Time Stop Time Status Last Admin (NS Flush) 2 ml UNSCH PRN IV FLUSH 03/03/18 15:00 (NovoLIN R SUPPLEMENTAL SCALE) 1 ACHS AND 3AM SQ 03/03/18 21:00 03/12/18 04:18 (Zofran Inj) 4 mg Q6H PRN IV PUSH 03/03/18 19:15 03/06/18 18:19 (Duoneb Neb) 1 ampule Q2HR NEB PRN INH 03/03/18 19:15 (Heparin Inj) 5,000 units Q12H SQ 03/03/18 19:15 03/11/18 17:40 Miscellaneous Information 1 Q361D XX 03/03/18 19:15 03/03/18 19:15 (Chlorhexidine 2% Cloth) Taper DAILY@04 TOP 03/04/18 04:00 02/28/19 03:59 03/05/18 00:58 (Chlorhexidine 2% Cloth) 3 pack UNSCH PRN TOP 03/03/18 19:30 (Norvasc) 10 mg DAILY PO 03/03/18 19:15 03/11/18 08:24 (Lipitor) 40 mg HS PO 03/03/18 21:00 03/11/18 21:56 (Plavix) 75 mg DAILY PO 03/04/18 09:00 03/08/18 08:49 (Apresoline) 100 mg TID PO 03/04/18 09:00 03/12/18 12:26 (Synthroid) 50 mcg DAILY@0600 PO 03/04/18 06:00 03/12/18 06:27 (Trandate Inj) 20 mg Q15M PRN IV PUSH 03/03/18 19:30 03/04/18 15:23 (Apresoline Inj) 10 mg Q30M PRN IV PUSH 03/03/18 19:30 03/04/18 15:23 (D50w (Vial) Inj) 50 ml UNSCH PRN IV PUSH 03/03/18 19:30 (Glucagon Inj) 1 mg UNSCH PRN OTHER 03/03/18 19:30 (Phenergan Inj) 12.5 mg Q6H PRN IM 03/03/18 22:30 03/06/18 21:08 (Mag-Al Plus Susp Liq) 30 ml PCHS PRN PO 03/04/18 12:00 03/05/18 15:51 (Protonix) 40 mg Q12HR PO 03/06/18 09:00 03/11/18 21:58 (NovoLIN N INJ) 2 units TIDAC SQ 03/08/18 12:00 03/12/18 12:30 (Sodium Bicarbonate) 650 mg Q12HR PO 03/08/18 21:00 03/11/18 21:56 Sodium Chloride 1,000 ml @ 0 mls/hr Q0M PRN OTHER 03/08/18 17:56 (Heparin Inj) 8,000 units UNSCH PRN IV FLUSH 03/08/18 18:00 Sodium Chloride 1,000 ml @ 200 mls/hr Q5H PRN IV 03/08/18 17:56 Sodium Chloride 1,000 ml @ 0 mls/hr Q0M PRN OTHER 03/08/18 17:56 (Mannitol Inj) 12.5 gm UNSCH PRN IV 03/08/18 18:00 Albumin Human 100 ml @ 60 mls/hr UNSCH PRN IV 03/08/18 18:00 (NS Flush) 5 ml UNSCH PRN IV FLUSH 03/08/18 18:00 (Heparin Inj) UNSCH PRN .XX 03/08/18 18:00 (Gentamicin Inj) 20 mg UNSCH PRN OTHER 03/08/18 18:00 (Zofran Inj) 4 mg UNSCH PRN IV PUSH 03/08/18 18:00 (Tylenol) 650 mg UNSCH PRN PO 03/08/18 18:00 03/11/18 08:26 (Benadryl) 25 mg UNSCH PRN PO 03/08/18 18:00 (Nitrostat Sl) 0.4 mg UNSCH PRN SL 03/08/18 18:00 (Catapres) 0.1 mg UNSCH PRN PO 03/08/18 18:00 (Epogen Inj) 10,000 units UNSCH PRN IV PUSH 03/08/18 18:00 (Gelfoam 12 Mm/7 Mm Top) 1 foam UNSCH PRN TOP 03/08/18 18:00 (NS Flush) UNSCH PRN IV FLUSH 03/09/18 09:30 (Heparin Inj) UNSCH PRN IV FLUSH 03/09/18 09:30 (Catapres) 0.1 mg Q6H PRN PO 03/09/18 10:30 03/11/18 04:34 (Nephrocaps) 1 cap DAILY PO 03/11/18 09:00 03/11/18 08:27 (Coreg) 25 mg Q12HR PO 03/10/18 21:00 03/11/18 21:56 (Levemir Inj) 25 units HS SQ 03/10/18 21:00 03/11/18 22:02 (Ambien) 10 mg HS PRN PO 03/11/18 16:15 03/11/18 21:57 (Catapres) 0.2 mg Q12HR PO 03/12/18 21:00 (Lasix) 40 mg DAILY PO 03/13/18 09:00 Family History Noncontributory Social History Denies current tobacco use; quit 9 months ago Denies ETOH use; quit 9 months ago + marijuana use Lives here locally with her family. Drives. Unemployed. Physical Exam Vital Signs Vital Signs Date Time Temp Pulse Resp B/P (MAP) Pulse Ox O2 Delivery O2 Flow Rate FiO2 03/12/18 13:43 Nasal Cannula 03/12/18 08:00 98.8 76 18 175/74 (107) 97 03/12/18 00:00 97.6 62 16 166/76 (106) 95 03/11/18 20:00 97.7 67 16 178/79 (112) 96 03/11/18 15:17 97.8 67 20 144/71 (95) 98 Physical Exam GENERAL: 52 year old female sitting on the side of the bed playing crossword puzzle on phone. SKIN: Warm and dry. HEAD: Atraumatic. Normocephalic. EYES: Pupils equal and round. No scleral icterus. No injection or drainage. ENT: No nasal bleeding or discharge. Mucous membranes pink and moist. NECK: Trachea midline. CARDIOVASCULAR: Regular rate and rhythm. RESPIRATORY: No accessory muscle use. Clear to auscultation. Breath sounds equal bilaterally. GASTROINTESTINAL: Abdomen soft, non-tender, nondistended. Obese. Several small bruised on abdomen likely from anticoagulation injections. MUSCULOSKELETAL: Extremities without clubbing, cyanosis, or edema. No obvious deformities. NEUROLOGICAL: Awake and alert. No obvious cranial nerve deficits. Motor grossly within normal limits. Five out of 5 muscle strength in the arms and legs. Normal speech. PSYCHIATRIC: Appropriate mood and affect; insight and judgment normal. Result Diagram: 03/10/18 0632 03/11/18 0732 Assessment and Plan Assessment and Plan 52 year old female with renal failure; on hemodialysis and desires to transition to peritoneal dialysis -Will plan for laparoscopic peritoneal dialysis catheter early next week in OR-- -Likely Thursday -Will have skip locator rafael patient for location of PD cath -Hold Plavix -Renal diet -General Surgery will see peripherally over the weekend as needed; Please call with questions Discussed Condition With Dr. Vinny Clifton Attending Statement Please see my progress note from same date. The exam, history, and the medical decision-making described in the above note were completed with the assistance of the mid-level provider. I reviewed and agree with the findings presented. I attest that I had a [id number] encounter with the patient on the same day, and personally performed and documented my assessment and findings in the medical record. Rosey Corcoran/First Aamir HERNANDEZ Mar 12, 2018 14:33 Brock Casillas MD Mar 15, 2018 10:53
--- NOTE | 2018-03-12 15:19 | HHI.PR ---
Subjective Subjective Notes Upon my arrival patient was awake and alert. She has no complaints. She was seen earlier in a full consultation was done by my nurse practitioner Rosey Corcoran. She indicates she has had prior laparoscopic cholecystectomy but no other abdominal procedures. She is relatively unfamiliar with peritoneal dialysis and peritoneal dialysis catheter placement. She has not been seen yet by the peritoneal tack maker, she has not been marked for peritoneal dialysis catheter exit site yet. Objective Vitals/I&O Vital Signs Date Time Temp Pulse Resp B/P (MAP) Pulse Ox O2 Delivery O2 Flow Rate FiO2 03/12/18 13:43 Nasal Cannula 03/12/18 08:00 98.8 76 18 175/74 (107) 97 03/11/18 13:00 21 Abdomen: Other (Her abdomen is obese soft and nondistended. She is multiple streaky A. She has some ecchymotic change. Her laparoscopic cholecystectomy scars are difficult to detect. She has no palpable masses no abdominal tenderness.) Extremities: Other (She has mild lower extremity edema. She has mild tenderness to palpation.) A/P Assessment and Plan 52-year-old woman who apparently has chronic kidney disease and is a candidate for consideration of peritoneal dialysis catheter placement. I described the procedure in detail the patient including the risks of bleeding infection injury to intra-abdominal contents. Sequential compression device will be used to minimize risk of blood clots in legs. I have emphasized the importance of care of the catheter to avoid infection. I have asked her to talk to the dialysis nurses about activities she can perform when the catheter is in including swimming. I will discuss with my scheduling corporate legal secretary the potential for scheduling her case early next week. I believed I answered all the questions to the best of my ability. She appeared to understand. Brock Casillas MD Mar 12, 2018 15:19
[2018-03-12 16:00] VITALS: BP 165/75; PULSE 68; RESP 19; TEMP 98.8; O2SAT 98
--- NOTE | 2018-03-12 16:28 | HHI.PR ---
Subjective Remarks Patient reports she is feeling okay. She decided on peritoneal dialysis and has been evaluated by general surgery. Objective Vitals Vital Signs Date Time Temp Pulse Resp B/P (MAP) Pulse Ox O2 Delivery O2 Flow Rate FiO2 03/12/18 13:43 Nasal Cannula 03/12/18 08:00 98.8 76 18 175/74 (107) 97 03/12/18 00:00 97.6 62 16 166/76 (106) 95 03/11/18 20:00 97.7 67 16 178/79 (112) 96 I/O 03/11/18 03/11/18 03/11/18 03/12/18 03/12/18 03/12/18 07:00 15:00 23:00 07:00 15:00 23:00 Intake Total 600 ml Output Total 1800 ml Balance 600 ml -1800 ml Intake Oral 600 ml Hemodialysis 1800 ml # Voids 3 # Bowel Movements 1 1 Result Diagram: 03/10/18 0632 03/11/18 0732 Objective Remarks GENERAL: No acute distress. CARDIOVASCULAR: RRR, no gallops, or rubs. RESPIRATORY: Air movement is fair. No wheezing or rhonchi. GASTROINTESTINAL: Abdomen soft, non-tender, nondistended. Positive bowel sounds MUSCULOSKELETAL: Extremities without clubbing, cyanosis, or edema. Pedal pulses appreciated NEUROLOGICAL: Awake and alert. Moves all extremity. Normal speech.no focal neurological deficit A/P Assessment and Plan 52-year-old female admitted secondary to hypertensive urgency with hyperemesis. Dyspnea on exertion COPD exacerbation Continue nebulizers Continue oxygen as needed Treat GERD with antireflux medications Stable from a respiratory standpoint. Discontinue prednisone. Hypertensive Urgency Status post Cardene drip Improved now on hydrochlorothiazide, hydralazine, monitor blood pressure. Expect improvement with discontinuation of steroids. Chronic kidney disease stage IV Started on hemodialysis, continue per nephrology recommendation, avoid nephrotoxin, follow with junior business analyst Patient elected for peritoneal dialysis. General surgery consulted for catheter placement. To be done early next week. CAD Elevated troponins Mostly demand perfusion mismatch No chest pain ASA, plavix continue Diabetes mellitus Diabetic diet, Accu-Chek with insulin sliding scale, continue Levemir. Not well controlled. Increase Levemir to 25 units at bedtime. Hypothyroidism Continue Synthroid Follows an outpatient Hyperlipidemia Continue statin. Patient DVT prophylaxis SCDs Discharge Planning Patient to have peritoneal dialysis catheter placement early next week. Continue hemodialysis per nephrology. Hardik King MD Mar 12, 2018 16:28
[2018-03-12 20:00] VITALS: BP 170/76; PULSE 74; RESP 20; TEMP 99.3; O2SAT 97
[2018-03-12] MEDS: INSULIN DETEMIR 100 UNITS/ML VIAL SQ SCH (21:40)
[2018-03-12] MEDS: ATORVASTATIN 40 MG TAB PO SCH (21:41)
[2018-03-12] MEDS: ZOLPIDEM TARTRATE 5 MG TAB PO PRN (21:41)
[2018-03-13 00:15] VITALS: BP 165/77; PULSE 72; RESP 18; TEMP 98.1; O2SAT 97
[2018-03-13] MEDS: INSULIN NovoLIN REGULAR SUPPLEMENTAL SCALE SQ SCH ×5 (03:03→21:02)
[2018-03-13] MEDS: CHLORHEXIDINE GLUCONATE 2 % 1 PACK (2 CLOTHS) TOP SCH (03:03)
[2018-03-13 04:00] VITALS: BP 149/67; PULSE 65; RESP 16; TEMP 97.8; O2SAT 98
[2018-03-13] MEDS: HEPARIN SODIUM - SQ 10,000 UNITS/ML VIAL SQ SCH ×2 (06:14→21:01)
[2018-03-13] MEDS: LEVOTHYROXINE SODIUM 50 MCG TAB PO SCH (06:14)
[2018-03-13 07:58] VITALS: BP 152/69; PULSE 69; RESP 19; TEMP 97.6; O2SAT 96
[2018-03-13] MEDS: INSULIN HUMAN NPH 1,000 UNITS/10 ML VIAL SQ SCH ×3 (08:00→17:00)
[2018-03-13] MEDS: cloNIDine HCL 0.1 MG TAB PO SCH ×2 (09:00→21:01)
[2018-03-13] MEDS: VITAMIN B CMPLX/VITC/FOLIC AC CAP PO SCH (09:00)
--- NOTE | 2018-03-13 09:37 | HHI.PR ---
Subjective Remarks Patient reports is she is feeling okay. No new issues. Objective Vitals Vital Signs Date Time Temp Pulse Resp B/P (MAP) Pulse Ox O2 Delivery O2 Flow Rate FiO2 03/13/18 07:58 97.6 69 19 152/69 (96) 96 03/13/18 04:00 97.8 65 16 149/67 (94) 98 03/13/18 00:15 98.1 72 18 165/77 (106) 97 03/12/18 22:00 21 03/12/18 20:00 99.3 74 20 170/76 (107) 97 03/12/18 16:00 98.8 68 19 165/75 (105) 98 03/12/18 13:43 Nasal Cannula 03/12/18 12:00 98.1 72 20 143/79 (100) 98 I/O 03/12/18 03/12/18 03/12/18 03/13/18 03/13/18 03/13/18 07:00 15:00 23:00 07:00 15:00 23:00 Intake Total 100 ml Output Total 1800 ml Balance -1800 ml 100 ml IV Total 100 ml Hemodialysis 1800 ml Result Diagram: 03/10/18 0632 03/11/18 0732 Objective Remarks GENERAL: No acute distress. CARDIOVASCULAR: RRR, no gallops, or rubs. RESPIRATORY: Air movement is fair. No wheezing or rhonchi. GASTROINTESTINAL: Abdomen soft, non-tender, nondistended. Positive bowel sounds MUSCULOSKELETAL: Extremities without clubbing, cyanosis, or edema. Pedal pulses appreciated NEUROLOGICAL: Awake and alert. Moves all extremity. Normal speech.no focal neurological deficit A/P Assessment and Plan 52-year-old female admitted secondary to hypertensive urgency with hyperemesis. Dyspnea on exertion COPD exacerbation Continue nebulizers Continue oxygen as needed Treat GERD with antireflux medications Stable from a respiratory standpoint. s/p prednisone. Hypertensive Urgency Status post Cardene drip Improved now on hydrochlorothiazide, hydralazine, monitor blood pressure. BP stable Chronic kidney disease stage IV Started on hemodialysis, continue per nephrology recommendation, avoid nephrotoxin, follow with high school librarian Patient elected for peritoneal dialysis. General surgery consulted for catheter placement. To be done early next week. Probably Thursday. CAD Elevated troponins Mostly demand perfusion mismatch No chest pain ASA, plavix continue Diabetes mellitus Diabetic diet, Accu-Chek with insulin sliding scale, continue Levemir. Better controlled. Continue Levemir 25 units at bedtime. Hypothyroidism Continue Synthroid Follows an outpatient Hyperlipidemia Continue statin. Patient DVT prophylaxis SCDs Discharge Planning Patient to have peritoneal dialysis catheter placement early next week. Continue hemodialysis per nephrology. Hardik King MD Mar 13, 2018 09:37
[2018-03-13] MEDS: ACETAMINOPHEN 325 MG TAB PO PRN (10:03)
[2018-03-13] MEDS: SODIUM BICARBONATE 650 MG TAB PO SCH ×2 (10:03→21:14)
[2018-03-13] MEDS: hydrALAZINE HCL 50 MG TAB PO SCH ×3 (10:03→17:08)
[2018-03-13] MEDS: FUROSEMIDE 40 MG TAB PO SCH (10:04)
[2018-03-13] MEDS: PANTOPRAZOLE SOD 40 MG DELAYED RELEASE TAB PO SCH ×2 (10:04→21:01)
[2018-03-13] MEDS: CARVEDILOL 12.5 MG TAB PO SCH ×2 (10:04→21:01)
[2018-03-13 11:24] VITALS: BP 138/65; PULSE 74; RESP 20; TEMP 98.1; O2SAT 96
--- NOTE | 2018-03-13 13:34 | HHI.NPPN ---
Subjective General Problems: Anemia Renal Failure: Chronic, Stage V History of Present Illness Patient is a 52 year old female with past medical history of diabetes mellitus for more than 20 years, coronary artery disease, hyperlipidemia, hypertension, chronic kidney disease, GERD, and hypothyroidism. Patient presented to hospital with nausea and vomiting. In the emergency room she was found to be hypertensive with and SBP in the 200's. She was initially treated with a cardene gtt. Her blood pressure continues to be elevated but has improved. Nephrology was consulted for elevated creatinine and BUN and having a history of needing dialysis in July. Creatinine is noted to be 4.48 today which has been increasing since admission creatinine of 3.72. Potassium is stable at 4.7. Patient does not have health insurance and has not been followed by a hand striper outpatient. She reports that she has been complaint with medication except for insulin which she has not been able to afford. Additional Remarks No acute complaints, tolerated HD yesterday Review of Systems General Constitutional: Fatigue Cardiovascular Cardiac: Edema Cardiac Remarks Denies any chest pain Gastrointestinal GI Remarks Denies any abdominal pain Objective Data Data Vital Signs Date Time Temp Pulse Resp B/P (MAP) Pulse Ox O2 Delivery O2 Flow Rate FiO2 03/13/18 12:11 21 03/13/18 11:49 18 03/13/18 11:24 98.1 74 20 138/65 (89) 96 03/13/18 07:58 97.6 69 19 152/69 (96) 96 03/13/18 04:00 97.8 65 16 149/67 (94) 98 03/13/18 00:15 98.1 72 18 165/77 (106) 97 03/12/18 22:00 21 03/12/18 20:00 99.3 74 20 170/76 (107) 97 03/12/18 16:00 98.8 68 19 165/75 (105) 98 03/12/18 13:43 Nasal Cannula -: 03/10/18 0632 03/11/18 0732 Tubes & Lines: Vas-Cath Tubes & Lines Comment right chest wall Physical Exam General Appearance: No Acute Distress, Comfortable Pulmonary Resp Exam: Breath Sounds Equal, No Distress Gastrointestinal/Abdomen GI Exam: Non-Tender, Bowel Sounds Present, Distended Genitourinary Exam: Flank Non-Tender Integumentary Skin Exam: Clear, Warm, Dry Extremeties Extremities Exam: Moderate Edema Neurologic Neuro Exam: Alert, Awake Psychiatric Psych Exam: Appropriate Responses Assessment/Plan Problem List: (1) Renal failure (ARF), acute on chronic ICD Codes: N17.9 - Acute kidney failure, unspecified; N18.9 - Chronic kidney disease, unspecified Plan: CKD -> ESRD now Chronic kidney disease stage 5 per records. Proteinuria noted. Possible related to hypertensive/renovascular disease/ diabetic nephropathy Has history of Hemodialysis X 1 in July Renal US: Kidneys appear slightly smaller when compared to the prior exam previously measuring 10.2 cm on the right and 10.5 on the left (now measuring 8.1 cm on the right and 9.5 on the left). Findings may be partly technical although some degree of chronic medical renal disease cannot be excluded. Otherwise negative. No hydronephrosis or nephrolithiasis. Plan ESRD this admission, toleratehd HD yesterday. Avoid IVF administration Avoid Nephrotoxins Anemia - getting epogen with dialysis. Venofer X 3 doses completed Hypertension, clonidine increased. Case management consulted to arrange outpatient Dialysis. Meet with PD educator yesterday and has decided to proceed with PD catheter placement. Surgery consulted for PD placement - PD catheter this week. (2) Chronic kidney disease, stage 5 ICD Codes: N18.5 - Chronic kidney disease, stage 5 Plan: Proceeded with hemodialysis (3) Hypertension ICD Codes: I10 - Essential (primary) hypertension Plan: Hypertension improved. will monitor (4) Diabetes ICD Codes: E11.9 - Type 2 diabetes mellitus without complications Status: Chronic Plan: Maintain BS between 140 mg/dl to 180 mg/dl. Problem Qualifiers (1) Hypertension: Qualified Codes: I10 - Essential (primary) hypertension Anatoly Lemus MD Mar 13, 2018 13:34
[2018-03-13 15:38] VITALS: BP 139/67; PULSE 71; RESP 20; TEMP 98.2; O2SAT 97
[2018-03-13 20:45] VITALS: BP 162/78; PULSE 68; RESP 20; TEMP 96.4; O2SAT 99
[2018-03-13] MEDS: ZOLPIDEM TARTRATE 5 MG TAB PO PRN (21:02)
[2018-03-13] MEDS: INSULIN DETEMIR 100 UNITS/ML VIAL SQ SCH (21:02)
[2018-03-13] MEDS: ATORVASTATIN 40 MG TAB PO SCH (21:02)
[2018-03-13] MEDS ORDERED: MAGNESIUM HYDROXIDE SUSP 30 ML CUP PO PRN (23:30)
[2018-03-14] VITALS: BP 170/94; PULSE 71; RESP 21; TEMP 98; O2SAT 96
[2018-03-14] MEDS: INSULIN NovoLIN REGULAR SUPPLEMENTAL SCALE SQ SCH ×5 (03:39→21:12)
[2018-03-14] MEDS: CHLORHEXIDINE GLUCONATE 2 % 1 PACK (2 CLOTHS) TOP SCH (03:44)
[2018-03-14 04:00] VITALS: BP 148/68; PULSE 73; RESP 20; TEMP 97.7; O2SAT 98
[2018-03-14 06:05] LABS: HEMATOCRIT 24.4 % (35.0-46.0); HEMOGLOBIN 8.3 GM/DL (11.6-15.3); MEAN CELL VOLUME 82.5 FL (80.0-100.0); MEAN CORPUSCULAR HGB CONC 33.9 % (32.0-36.0); MEAN PLATELET VOLUME 9.5 FL (7.0-11.0); PLATELET COUNT 149 TH/MM3 (150-450); RED BLOOD COUNT 2.96 MIL/MM3 (4.00-5.30); RED CELL DISTRIBUTION WIDTH 15.9 % (11.6-17.2); WHITE BLOOD COUNT 10.7 TH/MM3 (4.0-11.0)
[2018-03-14] MEDS: HEPARIN SODIUM - SQ 10,000 UNITS/ML VIAL SQ SCH ×2 (06:18→18:44)
[2018-03-14] MEDS: LEVOTHYROXINE SODIUM 50 MCG TAB PO SCH (06:18)
[2018-03-14 06:39] LABS: BICARBONATE 27.7 MEQ/L (21.0-32.0); CREATININE 3.41 MG/DL (0.50-1.00)
[2018-03-14 08:00] VITALS: BP 186/81; PULSE 74; RESP 18; TEMP 98.5; O2SAT 98
[2018-03-14] MEDS: INSULIN HUMAN NPH 1,000 UNITS/10 ML VIAL SQ SCH ×3 (08:29→17:24)
[2018-03-14] MEDS: VITAMIN B CMPLX/VITC/FOLIC AC CAP PO SCH (08:30)
[2018-03-14] MEDS: FUROSEMIDE 40 MG TAB PO SCH (08:30)
[2018-03-14] MEDS: PANTOPRAZOLE SOD 40 MG DELAYED RELEASE TAB PO SCH ×2 (08:30→21:11)
[2018-03-14] MEDS: cloNIDine HCL 0.1 MG TAB PO SCH ×2 (08:30→21:11)
[2018-03-14] MEDS: SODIUM BICARBONATE 650 MG TAB PO SCH ×2 (08:31→21:12)
[2018-03-14] MEDS: CARVEDILOL 12.5 MG TAB PO SCH ×2 (08:31→21:11)
[2018-03-14] MEDS: hydrALAZINE HCL 50 MG TAB PO SCH ×3 (08:31→17:30)
--- NOTE | 2018-03-14 11:08 | HHI.PR ---
Subjective Remarks No new issues. Slept well last night. Objective Vitals Vital Signs Date Time Temp Pulse Resp B/P (MAP) Pulse Ox O2 Delivery O2 Flow Rate FiO2 03/14/18 08:00 98.5 74 18 186/81 (116) 98 03/14/18 04:00 97.7 73 20 148/68 (94) 98 03/14/18 00:00 98.0 71 21 170/94 (119) 96 03/13/18 20:45 96.4 68 20 162/78 (106) 99 03/13/18 15:38 98.2 71 20 139/67 (91) 97 03/13/18 12:11 21 03/13/18 11:49 18 03/13/18 11:24 98.1 74 20 138/65 (89) 96 I/O 03/13/18 03/13/18 03/13/18 03/14/18 03/14/18 03/14/18 07:00 15:00 23:00 07:00 15:00 23:00 Intake Total 480 ml Balance 480 ml Intake Oral 480 ml # Voids 2 Result Diagram: 03/14/1843903/14/18439 Objective Remarks GENERAL: No acute distress. CARDIOVASCULAR: RRR, no gallops, or rubs. RESPIRATORY: Air movement is fair. No wheezing or rhonchi. GASTROINTESTINAL: Abdomen soft, non-tender, nondistended. Positive bowel sounds MUSCULOSKELETAL: Extremities without clubbing, cyanosis, or edema. Pedal pulses appreciated NEUROLOGICAL: Awake and alert. Moves all extremity. Normal speech.no focal neurological deficit A/P Assessment and Plan 52-year-old female admitted secondary to hypertensive urgency with hyperemesis. Dyspnea on exertion COPD exacerbation Continue nebulizers Continue oxygen as needed Treat GERD with antireflux medications Stable from a respiratory standpoint. s/p prednisone. Hypertensive Urgency Status post Cardene drip Improved now on hydrochlorothiazide, hydralazine, monitor blood pressure. BP stable Chronic kidney disease stage IV Started on hemodialysis, continue per nephrology recommendation, avoid nephrotoxin, follow with city planning engineer Patient elected for peritoneal dialysis. General surgery consulted for catheter placement. To be done early next week. Probably Thursday. Follow renal functions. CAD Elevated troponins Mostly demand perfusion mismatch No chest pain ASA, plavix continue Diabetes mellitus Diabetic diet, Accu-Chek with insulin sliding scale, continue Levemir. Better controlled. Continue Levemir 25 units at bedtime. Hypothyroidism Continue Synthroid Follows an outpatient Hyperlipidemia Continue statin. Patient DVT prophylaxis SCDs Discharge Planning Patient to have peritoneal dialysis catheter placement Thursday. Continue hemodialysis per nephrology. Hardik King MD Mar 14, 2018 11:08
[2018-03-14 12:00] VITALS: BP 134/62; PULSE 71; RESP 20; TEMP 98.7; O2SAT 96
--- NOTE | 2018-03-14 14:35 | HHI.NPPN ---
Subjective General Problems: Anemia Renal Failure: Chronic, Stage V History of Present Illness Patient is a 52 year old female with past medical history of diabetes mellitus for more than 20 years, coronary artery disease, hyperlipidemia, hypertension, chronic kidney disease, GERD, and hypothyroidism. Patient presented to hospital with nausea and vomiting. In the emergency room she was found to be hypertensive with and SBP in the 200's. She was initially treated with a cardene gtt. Her blood pressure continues to be elevated but has improved. Nephrology was consulted for elevated creatinine and BUN and having a history of needing dialysis in July. Creatinine is noted to be 4.48 today which has been increasing since admission creatinine of 3.72. Potassium is stable at 4.7. Patient does not have health insurance and has not been followed by a mobile paint specialist outpatient. She reports that she has been complaint with medication except for insulin which she has not been able to afford. Additional Remarks No acute complaints Review of Systems General Constitutional: Fatigue Cardiovascular Cardiac: Edema Cardiac Remarks Denies any chest pain Gastrointestinal GI Remarks Denies any abdominal pain Objective Data Data Vital Signs Date Time Temp Pulse Resp B/P (MAP) Pulse Ox O2 Delivery O2 Flow Rate FiO2 03/14/18 12:00 98.7 71 20 134/62 (86) 96 03/14/18 08:00 98.5 74 18 186/81 (116) 98 03/14/18 04:00 97.7 73 20 148/68 (94) 98 03/14/18 00:00 98.0 71 21 170/94 (119) 96 03/13/18 20:45 96.4 68 20 162/78 (106) 99 03/13/18 15:38 98.2 71 20 139/67 (91) 97 -: 03/14/18 0440 03/14/18 0440 Tubes & Lines: Vas-Cath Tubes & Lines Comment right chest wall Physical Exam General Appearance: No Acute Distress, Comfortable Pulmonary Resp Exam: Breath Sounds Equal, No Distress Gastrointestinal/Abdomen GI Exam: Non-Tender, Bowel Sounds Present, Distended Genitourinary Exam: Flank Non-Tender Integumentary Skin Exam: Clear, Warm, Dry Extremeties Extremities Exam: Moderate Edema Neurologic Neuro Exam: Alert, Awake Psychiatric Psych Exam: Appropriate Responses Assessment/Plan Problem List: (1) Renal failure (ARF), acute on chronic ICD Codes: N17.9 - Acute kidney failure, unspecified; N18.9 - Chronic kidney disease, unspecified Plan: May have mild acute kidney injury with a creatinine of 4.48 which has increased from 3.72 on admission may be related to hypertensive crisis or poor intake. Chronic kidney disease stage 5 per records. Proteinuria noted. Possible related to hypertensive/renovascular disease/ diabetic nephropathy Has history of Hemodialysis X 1 in July Renal US: Kidneys appear slightly smaller when compared to the prior exam previously measuring 10.2 cm on the right and 10.5 on the left (now measuring 8.1 cm on the right and 9.5 on the left). Findings may be partly technical although some degree of chronic medical renal disease cannot be excluded. Otherwise negative. No hydronephrosis or nephrolithiasis. Plan Apparent ESRD now Initiated HD - MWF here, next HD tomorrow. Avoid IVF administration Avoid Nephrotoxins Anemia - getting epogen with dialysis. Venofer X 3 doses completed Hypertension - BP stable today. Case management consulted to arrange outpatient Dialysis. Met with PD educator, has decided to proceed with PD catheter placement. Surgery consulted for PD placement - possibly Thursday . (2) Chronic kidney disease, stage 5 ICD Codes: N18.5 - Chronic kidney disease, stage 5 Plan: Proceeded with hemodialysis (3) Hypertension ICD Codes: I10 - Essential (primary) hypertension Plan: Hypertension improved. will monitor (4) Diabetes ICD Codes: E11.9 - Type 2 diabetes mellitus without complications Status: Chronic Plan: Maintain BS between 140 mg/dl to 180 mg/dl. Problem Qualifiers (1) Hypertension: Qualified Codes: I10 - Essential (primary) hypertension Anatoly Lemus MD Mar 14, 2018 14:35
[2018-03-14 16:00] VITALS: BP 129/68; PULSE 76; RESP 18; TEMP 98.6; O2SAT 96
[2018-03-14 20:18] VITALS: BP 144/65; PULSE 18; RESP 16; TEMP 98.3; O2SAT 97
[2018-03-14] MEDS: ZOLPIDEM TARTRATE 5 MG TAB PO PRN (21:11)
[2018-03-14] MEDS: INSULIN DETEMIR 100 UNITS/ML VIAL SQ SCH (21:12)
[2018-03-14] MEDS: ATORVASTATIN 40 MG TAB PO SCH (21:12)
[2018-03-15 01:00] VITALS: BP 162/74; PULSE 73; RESP 20; TEMP 98.1; O2SAT 96
[2018-03-15] MEDS: INSULIN NovoLIN REGULAR SUPPLEMENTAL SCALE SQ SCH ×5 (03:13→22:04)
[2018-03-15] MEDS: CHLORHEXIDINE GLUCONATE 2 % 1 PACK (2 CLOTHS) TOP SCH (03:14)
[2018-03-15 05:00] VITALS: BP 126/72; PULSE 68; RESP 20; TEMP 98.6; O2SAT 95
[2018-03-15] MEDS: LEVOTHYROXINE SODIUM 50 MCG TAB PO SCH (06:21)
[2018-03-15] MEDS: HEPARIN SODIUM - SQ 10,000 UNITS/ML VIAL SQ SCH (06:22)
[2018-03-15 08:00] VITALS: BP 151/70; PULSE 69; RESP 17; TEMP 98.7; O2SAT 96
[2018-03-15 08:55] LABS: AUTOMATED NEUTROPHIL # 7.2 TH/MM3 (1.8-7.7); BASOPHIL % 0.2 % (0.0-2.0); EOSINOPHIL # 0.2 TH/MM3 (0-0.4); EOSINOPHIL % 1.8 % (0.0-4.0); HEMATOCRIT 24.7 % (35.0-46.0); HEMOGLOBIN 8.4 GM/DL (11.6-15.3); LYMPH % 12.6 % (9.0-44.0); LYMPHOCYTE # 1.2 TH/MM3 (1.0-4.8); MEAN CELL VOLUME 82.9 FL (80.0-100.0); MEAN CORPUSCULAR HEMOGLOBIN 28.1 PG (27.0-34.0); MEAN PLATELET VOLUME 9.6 FL (7.0-11.0); MONO % 11.5 % (0.0-8.0); MONOCYTE # 1.1 TH/MM3 (0-0.9); NEUT % 73.9 % (16.0-70.0); PLATELET COUNT 134 TH/MM3 (150-450); RED BLOOD COUNT 2.98 MIL/MM3 (4.00-5.30); WHITE BLOOD COUNT 9.8 TH/MM3 (4.0-11.0)
[2018-03-15] MEDS: cloNIDine HCL 0.1 MG TAB PO SCH ×2 (09:00→21:56)
[2018-03-15] MEDS: VITAMIN B CMPLX/VITC/FOLIC AC CAP PO SCH (09:00)
[2018-03-15] MEDS: CARVEDILOL 12.5 MG TAB PO SCH ×2 (09:00→21:55)
[2018-03-15] MEDS: hydrALAZINE HCL 50 MG TAB PO SCH ×3 (09:00→17:16)
[2018-03-15] MEDS: PANTOPRAZOLE SOD 40 MG DELAYED RELEASE TAB PO SCH ×2 (09:00→21:56)
[2018-03-15] MEDS: FUROSEMIDE 40 MG TAB PO SCH ×2 (09:00→11:00)
[2018-03-15] MEDS: INSULIN HUMAN NPH 1,000 UNITS/10 ML VIAL SQ SCH ×3 (09:04→17:00)
[2018-03-15] MEDS: SODIUM BICARBONATE 650 MG TAB PO SCH ×2 (09:05→21:56)
[2018-03-15 09:27] LABS: BICARBONATE 30.7 MEQ/L (21.0-32.0); CALCIUM 9.1 MG/DL (8.5-10.1); CREATININE 3.67 MG/DL (0.50-1.00)
--- NOTE | 2018-03-15 10:26 | HHI.NPPN ---
Subjective General Problems: Anemia Renal Failure: Chronic, Stage V History of Present Illness Patient is a 52 year old female with past medical history of diabetes mellitus for more than 20 years, coronary artery disease, hyperlipidemia, hypertension, chronic kidney disease, GERD, and hypothyroidism. Patient presented to hospital with nausea and vomiting. In the emergency room she was found to be hypertensive with and SBP in the 200's. She was initially treated with a cardene gtt. Her blood pressure continues to be elevated but has improved. Nephrology was consulted for elevated creatinine and BUN and having a history of needing dialysis in July. Creatinine is noted to be 4.48 today which has been increasing since admission creatinine of 3.72. Potassium is stable at 4.7. Patient does not have health insurance and has not been followed by a collections director outpatient. She reports that she has been complaint with medication except for insulin which she has not been able to afford. Additional Remarks Denies any shortness of breath. Lower extremity edema. (Shira Frank) Review of Systems General Constitutional: Fatigue (Shira Frank) Cardiovascular Cardiac: Edema Cardiac Remarks Denies any chest pain (Shira Frank) Gastrointestinal GI Remarks Denies any abdominal pain (Shira Frank) Objective Data Data Vital Signs Date Time Temp Pulse Resp B/P (MAP) Pulse Ox O2 Delivery O2 Flow Rate FiO2 03/15/18 05:00 98.6 68 20 126/72 (90) 95 03/15/18 01:00 98.1 73 20 162/74 (103) 96 03/14/18 20:18 98.3 18 16 144/65 (91) 97 03/14/18 16:00 98.6 76 18 129/68 (88) 96 03/14/18 12:00 98.7 71 20 134/62 (86) 96 (Shira Frank) -: 03/15/18 0808 03/15/18 0808 Imaging Last Impressions Catheter Placement X-Ray 03/09/18 3460 Signed Impressions: Service Date/Time: Friday, March 09, 2018 09:14 - CONCLUSION: Uncomplicated line placement as above. Mauricio Castro Jr., MD Renal Ultrasound 03/07/18 0000 Signed Impressions: Service Date/Time: Wednesday, March 07, 2018 15:48 - CONCLUSION: 1. Kidneys appear slightly smaller when compared to the prior exam previously measuring 10.2 cm on the right and 10.5 on the left (now measuring 8.1 cm on the right and 9.5 on the left). Findings may be partly technical although some degree of chronic medical renal disease cannot be excluded. 2. Otherwise negative. No hydronephrosis or nephrolithiasis. Lemuel Ahuja MD Tubes & Lines: Vas-Cath Tubes & Lines Comment right chest wall (Shira FrankP) Physical Exam General Appearance: No Acute Distress, Comfortable (Shira Frank. BLADE GRINDER) Pulmonary Resp Exam: Breath Sounds Equal, No Distress (Shira Frank. BLADE GRINDER) Gastrointestinal/Abdomen GI Exam: Non-Tender, Bowel Sounds Present, Distended (Shira Frank. BLADE GRINDER) Genitourinary Exam: Flank Non-Tender (Shira Frank BLADE GRINDER) Integumentary Skin Exam: Clear, Warm, Dry (Shira Frank BLADE GRINDER) Extremeties Extremities Exam: Moderate Edema (Shira Frank. BLADE GRINDER) Neurologic Neuro Exam: Alert, Awake (Shira Frank BLADE GRINDER) Psychiatric Psych Exam: Appropriate Responses (Shira Frank) Assessment/Plan Problem List: (1) Renal failure (ARF), acute on chronic ICD Codes: N17.9 - Acute kidney failure, unspecified; N18.9 - Chronic kidney disease, unspecified Plan: May have mild acute kidney injury with a creatinine of 4.48 which has increased from 3.72 on admission may be related to hypertensive crisis or poor intake. Chronic kidney disease stage 5 per records. Proteinuria noted. Possible related to hypertensive/renovascular disease/ diabetic nephropathy Has history of Hemodialysis X 1 in July Renal US: Kidneys appear slightly smaller when compared to the prior exam previously measuring 10.2 cm on the right and 10.5 on the left (now measuring 8.1 cm on the right and 9.5 on the left). Findings may be partly technical although some degree of chronic medical renal disease cannot be excluded. Otherwise negative. No hydronephrosis or nephrolithiasis. Apparent ESRD now Initiated HD - MWF here, next HD tomorrow. Plan Lower extremity edema lasix ordered Avoid IVF administration Avoid Nephrotoxins Anemia - getting epogen with dialysis. Venofer X 3 doses completed Case management consulted to arrange outpatient Dialysis. Met with PD educator, has decided to proceed with PD catheter placement. Surgery consulted for PD placement - possibly Thursday . (2) Chronic kidney disease, stage 5 ICD Codes: N18.5 - Chronic kidney disease, stage 5 Plan: Proceeded with hemodialysis (3) Hypertension ICD Codes: I10 - Essential (primary) hypertension Plan: Hypertension improved. will monitor (4) Diabetes ICD Codes: E11.9 - Type 2 diabetes mellitus without complications Status: Chronic Plan: Maintain BS between 140 mg/dl to 180 mg/dl. (Shira Frank) Problem List: (1) Renal failure (ARF), acute on chronic ICD Codes: N17.9 - Acute kidney failure, unspecified; N18.9 - Chronic kidney disease, unspecified Plan: May have mild acute kidney injury with a creatinine of 4.48 which has increased from 3.72 on admission may be related to hypertensive crisis or poor intake. Chronic kidney disease stage 5 per records. Proteinuria noted. Possible related to hypertensive/renovascular disease/ diabetic nephropathy Has history of Hemodialysis X 1 in July Renal US: Kidneys appear slightly smaller when compared to the prior exam previously measuring 10.2 cm on the right and 10.5 on the left (now measuring 8.1 cm on the right and 9.5 on the left). Findings may be partly technical although some degree of chronic medical renal disease cannot be excluded. Otherwise negative. No hydronephrosis or nephrolithiasis. Apparent ESRD now Initiated HD - MWF here, next HD tomorrow. Plan Lower extremity edema lasix ordered Avoid IVF administration Avoid Nephrotoxins Anemia - getting epogen with dialysis. Venofer X 3 doses completed Case management consulted to arrange outpatient Dialysis. Met with PD educator, has decided to proceed with PD catheter placement. Surgery consulted for PD placement - possibly Thursday. Patient seen and examined, agree with above. Patient for PD Catheter, also will need PermCath. . (2) Chronic kidney disease, stage 5 ICD Codes: N18.5 - Chronic kidney disease, stage 5 Plan: Proceeded with hemodialysis (3) Hypertension ICD Codes: I10 - Essential (primary) hypertension Plan: Hypertension improved. will monitor (4) Diabetes ICD Codes: E11.9 - Type 2 diabetes mellitus without complications Status: Chronic Plan: Maintain BS between 140 mg/dl to 180 mg/dl. (Adebayo Balderas MD) Problem Qualifiers (1) Hypertension: Qualified Codes: I10 - Essential (primary) hypertension Shira Frank Mar 15, 2018 10:26 Adebayo Balderas MD March 16, 2018 16:29
--- NOTE | 2018-03-15 10:47 | HHI.PR ---
cc: Brock Casillas MD Subjective Subjective Notes Sitting on the side of the bed No issues over the weekend Going for HD later today Objective Vitals/I&O Vital Signs Date Time Temp Pulse Resp B/P (MAP) Pulse Ox O2 Delivery O2 Flow Rate FiO2 03/15/18 05:00 98.6 68 20 126/72 (90) 95 03/13/18 12:11 21 03/12/18 13:43 Nasal Cannula Labs Laboratory Tests Test 03/15/18 08:08 White Blood Count 9.8 Red Blood Count 2.98 Hemoglobin 8.4 Hematocrit 24.7 Mean Corpuscular Volume 82.9 Mean Corpuscular Hemoglobin 28.1 Mean Corpuscular Hemoglobin Concent 34.0 Red Cell Distribution Width 16.0 Platelet Count 134 Mean Platelet Volume 9.6 Neutrophils (%) (Auto) 73.9 Lymphocytes (%) (Auto) 12.6 Monocytes (%) (Auto) 11.5 Eosinophils (%) (Auto) 1.8 Basophils (%) (Auto) 0.2 Neutrophils # (Auto) 7.2 Lymphocytes # (Auto) 1.2 Monocytes # (Auto) 1.1 Eosinophils # (Auto) 0.2 Basophils # (Auto) 0.0 CBC Comment AUTO DIFF Differential Comment AUTO DIFF CONFIRMED Platelet Estimate LOW Platelet Morphology Comment NORMAL Blood Urea Nitrogen 69 Creatinine 3.67 Random Glucose 116 Calcium Level 9.1 Sodium Level 135 Potassium Level 4.2 Chloride Level 99 Carbon Dioxide Level 30.7 Anion Gap 5 Estimat Glomerular Filtration Rate 13 Cardiovascular: Regular Lungs: Clear Abdomen: Non-distended, Non-tender Extremities: No edema Narrative Exam VasCath in place A/P Assessment and Plan 52 year old female with renal failure; PD catheter placement planned for tomorrow -Obtain consents -NPO after MN -Hold anticoagulation -HD nurse to come rafael patient today for catheter placement -Discussed with BETHANY Manzo Attending Statement Pt marked in LUQ of abdomen by sole sewer hand for PD catheter exit site. Discussed with her and her son plans for tomorrow afternoon. NPO after 0800. Expectations for recovery reviewed. They understand. The exam, history, and the medical decision-making described in the above note were completed with the assistance of the mid-level provider. I reviewed and agree with the findings presented. I attest that I had a [id number] encounter with the patient on the same day, and personally performed and documented my assessment and findings in the medical record. Rosey Corcoran/First Aamir HERNANDEZ Mar 15, 2018 10:47 Brock Casillas MD Mar 15, 2018 17:09
[2018-03-15 12:00] VITALS: BP 155/67; PULSE 74; RESP 17; TEMP 99.1; O2SAT 98
--- NOTE | 2018-03-15 14:49 | HHI.PR ---
Subjective Remarks Patient seen earlier this morning. Resting. No acute issues. Due for dialysis today. Objective Vitals Vital Signs Date Time Temp Pulse Resp B/P (MAP) Pulse Ox O2 Delivery O2 Flow Rate FiO2 03/15/18 08:00 98.7 69 17 151/70 (97) 96 03/15/18 05:00 98.6 68 20 126/72 (90) 95 03/15/18 01:00 98.1 73 20 162/74 (103) 96 03/14/18 20:18 98.3 18 16 144/65 (91) 97 03/14/18 16:00 98.6 76 18 129/68 (88) 96 I/O 03/14/18 03/14/18 03/14/18 03/15/18 03/15/18 03/15/18 06:59 14:59 22:59 06:59 14:59 22:59 Intake Total 480 ml Output Total 3500 ml Balance 480 ml -3500 ml Intake Oral 480 ml Hemodialysis 3500 ml # Voids 2 # Bowel Movements 1 Result Diagram: 03/15/18 0808 03/15/18 0808 Objective Remarks GENERAL: No acute distress. CARDIOVASCULAR: RRR, no gallops, or rubs. RESPIRATORY: Air movement is fair. No wheezing or rhonchi. GASTROINTESTINAL: Abdomen soft, non-tender, nondistended. Positive bowel sounds MUSCULOSKELETAL: Extremities without clubbing, cyanosis, or edema. Pedal pulses appreciated NEUROLOGICAL: Awake and alert. Moves all extremity. Normal speech.no focal neurological deficit A/P Assessment and Plan 52-year-old female admitted secondary to hypertensive urgency with hyperemesis. Dyspnea on exertion COPD exacerbation Continue nebulizers Continue oxygen as needed Treat GERD with antireflux medications Stable from a respiratory standpoint. s/p prednisone. Hypertensive Urgency Status post Cardene drip Improved now on hydrochlorothiazide, hydralazine, monitor blood pressure. BP stable Chronic kidney disease stage IV Started on hemodialysis, continue per nephrology recommendation, avoid nephrotoxin, follow with food checkers and cashiers supervisor Patient elected for peritoneal dialysis. General surgery consulted for catheter placement. This will be done tomorrow. Follow renal functions. CAD Elevated troponins Mostly demand perfusion mismatch No chest pain ASA, plavix continue Diabetes mellitus Diabetic diet, Accu-Chek with insulin sliding scale, continue Levemir. Better controlled. Continue Levemir 25 units at bedtime. Hypothyroidism Continue Synthroid Follows an outpatient Hyperlipidemia Continue statin. Patient DVT prophylaxis SCDs Discharge Planning Patient to have peritoneal dialysis catheter placement tomorrow. Continue hemodialysis per nephrology. Will need a plan for outpatient PD. Hardik King MD Mar 15, 2018 14:49
[2018-03-15 16:00] VITALS: BP 151/66; PULSE 73; RESP 17; TEMP 99.1; O2SAT 97
[2018-03-15 21:30] VITALS: BP 188/81; PULSE 81; RESP 18; TEMP 99.2; O2SAT 96
[2018-03-15] MEDS: ATORVASTATIN 40 MG TAB PO SCH (21:56)
[2018-03-15] MEDS: ZOLPIDEM TARTRATE 5 MG TAB PO PRN (21:56)
[2018-03-15] MEDS: INSULIN DETEMIR 100 UNITS/ML VIAL SQ SCH (22:04)
[2018-03-16] VITALS (9 sets, daily range): BP systolic 127–159; BP diastolic 61–72; PULSE 58–76; RESP 16–22; TEMP 97.5–99.5; O2SAT 92–99
[2018-03-16] MEDS ORDERED: METOPROLOL TARTRATE 25 MG TAB PO PRN (03:15)
[2018-03-16] MEDS ORDERED: LACTATED RINGER'S 1000 ML IV PRN (03:15)
[2018-03-16] MEDS ORDERED: CHLORHEXIDINE GLUCONATE 2 % 1 PACK (2 CLOTHS) TOPICAL PRN (03:15)
[2018-03-16] MEDS ORDERED: POVIDONE IODINE 5% (ANTISEPSIS KIT) 4 APPLICATIONS EACH NARE PRN (03:15)
[2018-03-16] MEDS ORDERED: SODIUM CHLORID 0.9% 500 ML IV PRN (03:15)
[2018-03-16] MEDS: INSULIN NovoLIN REGULAR SUPPLEMENTAL SCALE SQ SCH ×5 (04:08→22:04)
[2018-03-16] MEDS: CHLORHEXIDINE GLUCONATE 2 % 1 PACK (2 CLOTHS) TOP SCH (04:08)
[2018-03-16] MEDS: LEVOTHYROXINE SODIUM 50 MCG TAB PO SCH (06:29)
[2018-03-16] MEDS: INSULIN HUMAN NPH 1,000 UNITS/10 ML VIAL SQ SCH ×3 (08:28→17:00)
[2018-03-16] MEDS: PANTOPRAZOLE SOD 40 MG DELAYED RELEASE TAB PO SCH ×2 (08:29→21:48)
[2018-03-16] MEDS: VITAMIN B CMPLX/VITC/FOLIC AC CAP PO SCH (08:30)
[2018-03-16] MEDS: FUROSEMIDE 40 MG TAB PO SCH (08:30)
[2018-03-16] MEDS: CARVEDILOL 12.5 MG TAB PO SCH ×2 (08:31→21:48)
[2018-03-16] MEDS: hydrALAZINE HCL 50 MG TAB PO SCH ×3 (08:31→18:00)
[2018-03-16] MEDS: cloNIDine HCL 0.1 MG TAB PO SCH ×2 (08:32→21:48)
[2018-03-16] MEDS: SODIUM BICARBONATE 650 MG TAB PO SCH ×2 (08:32→21:48)
--- NOTE | 2018-03-16 10:54 | HHI.NPPN ---
Subjective General Problems: Anemia Renal Failure: Chronic, Stage V History of Present Illness Patient is a 52 year old female with past medical history of diabetes mellitus for more than 20 years, coronary artery disease, hyperlipidemia, hypertension, chronic kidney disease, GERD, and hypothyroidism. Patient presented to hospital with nausea and vomiting. In the emergency room she was found to be hypertensive with and SBP in the 200's. She was initially treated with a cardene gtt. Her blood pressure continues to be elevated but has improved. Nephrology was consulted for elevated creatinine and BUN and having a history of needing dialysis in July. Creatinine is noted to be 4.48 today which has been increasing since admission creatinine of 3.72. Potassium is stable at 4.7. Patient does not have health insurance and has not been followed by a manager support outpatient. She reports that she has been complaint with medication except for insulin which she has not been able to afford. Additional Remarks Plan for PD catheter today. Will also exchange permacath for vas cath. Plavix is on hold. (Shira Frank) Review of Systems General Constitutional: Fatigue (Shira Frank) Cardiovascular Cardiac: Edema Cardiac Remarks Denies any chest pain (Shira Frank) Gastrointestinal GI Remarks Denies any abdominal pain (Shira Frank) Objective Data Data 03/16/18 03/17/18 19:00 07:00 # Voids 3 Vital Signs Date Time Temp Pulse Resp B/P (MAP) Pulse Ox O2 Delivery O2 Flow Rate FiO2 03/16/18 08:00 99.2 72 18 147/65 (92) 97 03/16/18 04:00 98.7 71 18 147/66 (93) 98 03/16/18 01:02 99.5 76 18 159/70 (99) 96 03/15/18 21:30 99.2 81 18 188/81 (116) 96 03/15/18 16:00 99.1 73 17 151/66 (94) 97 03/15/18 12:00 99.1 74 17 155/67 (96) 98 (Shira Frank) -: 03/15/18 0808 03/15/18 0808 Imaging Last Impressions Catheter Placement X-Ray 03/09/18 5078 Signed Impressions: Service Date/Time: Friday, March 09, 2018 09:14 - CONCLUSION: Uncomplicated line placement as above. Mauricio Castro Jr., MD Renal Ultrasound 03/07/18 0000 Signed Impressions: Service Date/Time: Wednesday, March 07, 2018 15:48 - CONCLUSION: 1. Kidneys appear slightly smaller when compared to the prior exam previously measuring 10.2 cm on the right and 10.5 on the left (now measuring 8.1 cm on the right and 9.5 on the left). Findings may be partly technical although some degree of chronic medical renal disease cannot be excluded. 2. Otherwise negative. No hydronephrosis or nephrolithiasis. Lemuel Ahuja MD Tubes & Lines: Vas-Cath Tubes & Lines Comment right chest wall (Shira Frank) Physical Exam General Appearance: No Acute Distress, Comfortable (Shira Frank MOLD INSERT CHANGER) Pulmonary Resp Exam: Breath Sounds Equal, No Distress (Shira FrankP) Gastrointestinal/Abdomen GI Exam: Non-Tender, Bowel Sounds Present, Distended (Shira Frank MOLD INSERT CHANGER) Genitourinary Exam: Flank Non-Tender (Shira Frank MOLD INSERT CHANGER) Integumentary Skin Exam: Clear, Warm, Dry (Shira FrankP) Extremeties Extremities Exam: Moderate Edema (Shira Frank M. MOLD INSERT CHANGER) Neurologic Neuro Exam: Alert, Awake (Shira Frank MOLD INSERT CHANGER) Psychiatric Psych Exam: Appropriate Responses (Shira Frank) Assessment/Plan Problem List: (1) Renal failure (ARF), acute on chronic ICD Codes: N17.9 - Acute kidney failure, unspecified; N18.9 - Chronic kidney disease, unspecified Plan: May have mild acute kidney injury with a creatinine of 4.48 which has increased from 3.72 on admission may be related to hypertensive crisis or poor intake. Chronic kidney disease stage 5 per records. Proteinuria noted. Possible related to hypertensive/renovascular disease/ diabetic nephropathy Has history of Hemodialysis X 1 in July Renal US: Kidneys appear slightly smaller when compared to the prior exam previously measuring 10.2 cm on the right and 10.5 on the left (now measuring 8.1 cm on the right and 9.5 on the left). Findings may be partly technical although some degree of chronic medical renal disease cannot be excluded. Otherwise negative. No hydronephrosis or nephrolithiasis. ESRD now Plan Continue lasix Avoid IVF administration Avoid Nephrotoxins Anemia - getting epogen with dialysis. Venofer X 3 doses completed Case management consulted to arrange outpatient Dialysis will be transitional dialysis Met with PD educator, has decided to proceed with PD catheter placement. PD placement today. Will also exchange permacath for vas cath. Hemodialysis yesterday for UF 3.5L Hemodialysis planned for yesterday. . (2) Chronic kidney disease, stage 5 ICD Codes: N18.5 - Chronic kidney disease, stage 5 Plan: Proceeded with hemodialysis (3) Hypertension ICD Codes: I10 - Essential (primary) hypertension Plan: Hypertension improved. will monitor (4) Diabetes ICD Codes: E11.9 - Type 2 diabetes mellitus without complications Status: Chronic Plan: Maintain BS between 140 mg/dl to 180 mg/dl. (Shira Frank) Problem List: (1) Renal failure (ARF), acute on chronic ICD Codes: N17.9 - Acute kidney failure, unspecified; N18.9 - Chronic kidney disease, unspecified Plan: May have mild acute kidney injury with a creatinine of 4.48 which has increased from 3.72 on admission may be related to hypertensive crisis or poor intake. Chronic kidney disease stage 5 per records. Proteinuria noted. Possible related to hypertensive/renovascular disease/ diabetic nephropathy Has history of Hemodialysis X 1 in July Renal US: Kidneys appear slightly smaller when compared to the prior exam previously measuring 10.2 cm on the right and 10.5 on the left (now measuring 8.1 cm on the right and 9.5 on the left). Findings may be partly technical although some degree of chronic medical renal disease cannot be excluded. Otherwise negative. No hydronephrosis or nephrolithiasis. ESRD now Plan Continue lasix Avoid IVF administration Avoid Nephrotoxins Anemia - getting epogen with dialysis. Venofer X 3 doses completed Case management consulted to arrange outpatient Dialysis will be transitional dialysis Met with PD educator, has decided to proceed with PD catheter placement. PD placement today. Will also exchange permacath for vas cath. Hemodialysis yesterday for UF 3.5L Hemodialysis planned for yesterday. Patient seen and examined, agree with above. For PD Catheter today and also to get PermCath. . (2) Chronic kidney disease, stage 5 ICD Codes: N18.5 - Chronic kidney disease, stage 5 Plan: Proceeded with hemodialysis (3) Hypertension ICD Codes: I10 - Essential (primary) hypertension Plan: Hypertension improved. will monitor (4) Diabetes ICD Codes: E11.9 - Type 2 diabetes mellitus without complications Status: Chronic Plan: Maintain BS between 140 mg/dl to 180 mg/dl. (Adebayo Balderas MD) Problem Qualifiers (1) Hypertension: Qualified Codes: I10 - Essential (primary) hypertension Shira Frank March 16, 2018 10:54 Adebayo Balderas MD March 16, 2018 16:46
[2018-03-16] MEDS ORDERED: MIDAZOLAM HCL 5 MG/5 ML VIAL ONE (13:31)
[2018-03-16] MEDS ORDERED: fentaNYL CITRATE 250 MCG/5 ML AMP ONE (13:31)
[2018-03-16] MEDS ORDERED: SODIUM CHLOR 0.9% 250 ML INJ 250 ML ONE (13:32)
[2018-03-16] MEDS ORDERED: VANCOMYCIN HCL 1000 MG VIAL ONE (13:32)
[2018-03-16] MEDS ORDERED: LIDOCAINE 1%/EPINEPHrine 1:100,000 SOLN 30 ML VIAL ONE (13:40)
[2018-03-16] MEDS ORDERED: ACETAMINOPHEN 1000 MG/100 ML 100 ML IV ONE (15:14)
[2018-03-16] MEDS ORDERED: BUPIVACAINE/EPINEPHRINE 0.5% PF 10 ML VIAL ONE ×2 (15:20→17:10)
--- NOTE | 2018-03-16 15:20 | HHI.PR ---
Subjective Remarks Patient is attempted to take a nap this morning prior to placement of peritoneal dialysis access port. She has no specific complaints. She was admitted for COPD but is breathing comfortably currently. Objective Vitals Vital Signs Date Time Temp Pulse Resp B/P (MAP) Pulse Ox O2 Delivery O2 Flow Rate FiO2 03/16/18 14:45 62 18 128/68 (88) 98 03/16/18 14:30 97.6 65 18 137/72 (93) 92 03/16/18 14:25 97.6 63 16 137/72 (93) 93 03/16/18 12:00 98.9 69 18 135/63 (87) 95 03/16/18 08:00 99.2 72 18 147/65 (92) 97 03/16/18 04:00 98.7 71 18 147/66 (93) 98 03/16/18 01:02 99.5 76 18 159/70 (99) 96 03/15/18 21:30 99.2 81 18 188/81 (116) 96 03/15/18 16:00 99.1 73 17 151/66 (94) 97 I/O 03/15/18 03/15/18 03/15/18 03/16/18 03/16/18 03/16/18 07:00 15:00 23:00 07:00 15:00 23:00 Output Total 3500 ml Balance -3500 ml Hemodialysis 3500 ml # Voids 3 Result Diagram: 03/15/18 0808 03/15/18 0808 Objective Remarks GENERAL: Well-nourished, well-developed patient. Obese SKIN: Vas-Cath in right neck HEAD: Normocephalic. EYES: No scleral icterus. No injection or drainage. NECK: Supple, trachea midline. No JVD or lymphadenopathy. CARDIOVASCULAR: Regular rate and rhythm without murmurs, gallops, or rubs. RESPIRATORY: Breath sounds equal bilaterally. No accessory muscle use. GASTROINTESTINAL: Abdomen soft, non-tender, nondistended. EXTREMITIES: No cyanosis, or edema. NEUROLOGICAL: Awake, alert, and oriented x 3. Non-focal. A/P Problem List: (1) COPD exacerbation ICD Code: J44.1 - Chronic obstructive pulmonary disease with (acute) exacerbation (2) Renal failure (ARF), acute on chronic ICD Code: N17.9 - Acute kidney failure, unspecified; N18.9 - Chronic kidney disease, unspecified (3) Chronic kidney disease, stage 5 ICD Code: N18.5 - Chronic kidney disease, stage 5 (4) Diabetes ICD Code: E11.9 - Type 2 diabetes mellitus without complications Status: Chronic (5) Hypertension ICD Code: I10 - Essential (primary) hypertension Assessment and Plan 52-year-old female admitted secondary to hypertensive urgency with hyperemesis. COPD exacerbation Continue nebulizers, O2 Prednisone taper finished Cover GERD with antireflux medications Hypertensive Urgency Status post Cardene drip Now stable on hydrochlorothiazide, hydralazine Chronic kidney disease stage IV Started on hemodialysis, continue per nephrology recommendation, Converting to peritoneal dialysis, access placed today Appreciate general surgery consult Appreciate nephrology consult Elevated troponins Mostly demand perfusion mismatch, history of CAD Denies chest pain Continue Plavix and aspirin Diabetes mellitus Sliding scale insulin with Accu-Cheks Continue Levemir 25 units at bedtime. Diabetic diet Hypothyroidism Continue Synthroid Hyperlipidemia Continue statin. DVT prophylaxis SCDs Discharge Planning Peritoneal dialysis access placed today, may continue hemodialysis as outpatient until peritoneal dialysis supplies are set up Expect discharge tomorrow Gatito Yusuf MD March 16, 2018 15:20
--- NOTE | 2018-03-16 15:56 | RADRPT ---
EXAM DATE/TIME: 03/16/2018 00:00 [facility] COMPARISON: No previous studies available for comparison. INDICATIONS : Patient with history of chronic kidney disease in need of non tunnelled dialysis catheter removal. MEDICAL HISTORY : CAD, GERD, Diabetes, HTN, HLD, Hypothyroidism SURGICAL HISTORY : Cholecystectomy, Dialysis catheter ENCOUNTER: Subsequent ACUITY: 2 weeks PAIN SCORE: 0/10 IMAGE SERIES: PROCEDURE : 1. Temporary central venous catheter removal. The prescribed catheter was removed intact and hemostasis was achieved with direct pressure. The sit e was dressed appropriately. The patient tolerated the procedure well. CONCLUSION: Uncomplicated catheter removal. Simeon Spencer MD on March 16, 2018 at 15:54 Board Certified Radiologist. This report was verified electronically.
--- NOTE | 2018-03-16 15:58 | RADRPT ---
EXAM DATE/TIME: 03/16/2018 14:11 [facility] COMPARISON: No previous studies available for comparison. INDICATIONS : Patient with history of chronic kidney disease in need of tunnelled dialysis catheter placement. MEDICAL HISTORY : CAD, GERD, Diabetes, HTN, HLD, Hypothyroidism SURGICAL HISTORY : Cholecystectomy, Dialysis catheter ENCOUNTER: Subsequent ACUITY: 2 weeks PAIN SCORE: 0/10 FLUORO TIME: 0.22 minutes IMAGE SERIES: 1 SEDATION TIME: 30 minutes ACCESS: Right internal jugular vein SEDATION: 1.) 5 mg midazolam (Versed) IV 2.) 250 mcg fentanyl (Sublimaze) IV Prophylactic antibiotics were administered with appropriate pre-procedure timing. Vancomycin within 2 hours of procedure, Ancef (or alternative) within 1 hour of procedure. DEVICE: 1. 15 English dual lumen 19 cm Aranda II Plus catheter PROCEDURE : 1. Ultrasound-guided venipuncture. 2. PermaCath placement. 3. Conscious sedation with continuous EKG and oximetry monitoring. The risks, benefits and alternatives to the procedure were explained and verbal and written consent w as obtained. The site was prepped in sterile fashion. Full sterile technique was used, including ca p, mask, sterile gloves and gown and a large sterile sheet. Hand hygiene and 2% chlorhexidine and/or betadine/alcohol prep was utilized per protocol for cutaneous antisepsis. Sterile gel and sterile p robe cover were utilized for ultrasound guidance. The skin and subcutaneous tissues were infiltrated with local anesthetic solution. With ultrasound and fluoroscopic guidance a dermatotomy was created over the prescribed vein. A micr opuncture set was used to access the targeted vein and serial dilatation was performed to accept the prescribed length catheter. A subcutaneous tunnel was created in a retrograde fashion the catheter w as pulled through the tunnel. The catheter was flushed and assembled and locked with heparin. The c atheter was sutured in place. Conscious sedation was performed with the prescribed dosages and duration as above in the presence of an independent trained radiology nurse to assist in the monitoring of the patient. EKG and oximetry remained stable throughout the procedure. The patient tolerated the procedure well and there were n o complications. The patient was sent to post anesthesia recovery in stable condition. CONCLUSION: Uncomplicated PermaCath placement as above. Simeon Spencer MD on March 16, 2018 at 15:56 Board Certified Radiologist. This report was verified electronically.
--- NOTE | 2018-03-16 16:40 | PD.RAD ---
Post Procedure Progress Note Pre Procedure Diagnosis: (1) CKD (chronic kidney disease) Post Procedure Diagnosis: (1) CKD (chronic kidney disease) Procedure Date: March 16, 2018 Supervising Radiologist: Simeon Spencer Proceduralist/Assist: Jeanie Amos RT(R), RT Ana(R) Anesthesia: Conscious Sedation Plan of Activity Patient to Unit: ROPU Patient Condition: Good See PACS Report for procedural detail/treatment Simeon Spencer MD March 16, 2018 16:40
[2018-03-16] MEDS ORDERED: HEPARIN SODIUM - IV 2,000 UNITS/2 ML VIAL IV FLUSH PRN (16:45)
[2018-03-16] MEDS ORDERED: SODIUM CHLORIDE 0.9% FLUSH 10 ML FLUSH IV FLUSH PRN (16:45)
[2018-03-16] MEDS ORDERED: SUGAMMADEX SODIUM 200 MG/2 ML VIAL IV PUSH ONE (17:39)
[2018-03-16] MEDS ORDERED: DO NOT ADM ANY ANTICOAGULANT DRUGS PRN (17:58)
[2018-03-16] MEDS ORDERED: MORPHINE SULFATE 4 MG/ML INJ IV PUSH PRN (18:00)
[2018-03-16] MEDS ORDERED: Post-op Orders (for Pharmacy) XX ONE (18:00)
[2018-03-16] MEDS ORDERED: ACETAMINOPHEN/HYDROcodone 325 MG/5 MG TAB PO PRN ×2 (18:00)
--- NOTE | 2018-03-16 18:07 | PD.OP ---
Operative Report Date of Surgery: March 16, 2018 Preoperative Diagnosis: Chronic kidney disease, desire for peritoneal dialysis Postoperative Diagnosis: Same Procedure: Laparoscopic assisted placement of peritoneal dialysis catheter Anesthesia: General endotracheal Surgeon: Brock Casillas Weld Lay Out Worker(s): Dann Carcamo MS3 Operation and Findings: Indications for procedure This is a pleasant 52-year-old woman with increasing BUN and creatinine. Option for peritoneal dialysis was provided to the patient and she wished to proceed with peritoneal dialysis catheter placement. Intraoperative findings Successful placement of peritoneal dialysis catheter in dependent portion of pelvis, 122 cm swan-neck catheter. Estimated blood loss 2 mL. Description of procedure in detail Patient was identified as Heather Clifton, taken to the operating room and placed in a supine position. Sequential compression devices were placed on bilateral lower extremities. Following induction of adequate general endotracheal anesthesia the patient's abdomen was prepped and draped in usual sterile fashion with Betadine. And asked marked the proposed peritoneal dialysis catheter exit site in the left upper quadrant of the abdomen. A timeout procedure was performed. Following completion timeout procedure everyone's satisfaction within the room local anesthetic was infiltrated in the left lateral subcostal position. A 2 cm transverse incision was carried out with a scalpel and dissection continued posteriorly through the subcutaneous fatty tissue. Hemostat was used to perforate the anterior fascia and the muscle underlying was spread. Using the surgeon's finger to continue to dissect posteriorly the peritoneum was entered in the left lateral subcostal position. A 5 mm balloon tip Tripathi trocar was placed in the peritoneal cavity its balloon inflated and CO2 insufflation to level of 15 mmHg ensued. A left lateral 5 mm trochars placed in the peritoneal cavity under direct laparoscopic view after incision and skin with a scalpel. Infraumbilical midline omental adhesions were identified presumably from her prior . Patient was placed in a Trendelenburg position. Space in the pelvis between her uterus and rectum was free and clear from any scar tissue. Local anesthetic was then infiltrated the proposed trocar entry site and along the subcutaneous tunnel to her proposed exit site. Incision below the umbilicus slightly left of midline was made with a scalpel and a 5 mm trocar was placed into the preperitoneal space and then tunneled inferiorly into the peritoneum was perforated just above the dome of the bladder. Through this trocar the curled portion of the peritoneal dialysis catheter was placed into the most dependent portion of the pelvis and the trochar removed from over the top of the catheter. The catheter was then tunneled to a counterincision site in the upper abdomen. The swan-neck portion of the catheter was then tunneled to a counter incision and then using the FALL ER tunneler to its exit site. This resulted in the 2 cuffs of the swan-neck portion of the catheter be perfectly positioned. The 2 ends of the catheter which have been tunneled to the counterincision site in the left upper abdomen were then connected using a titanium connector held against the catheter with 2-0 silk ties. Titanium caps were then placed onto the end of the catheter and a liter of fluid was run into the dependent portion of the pelvis without any evidence of obstruction or kink in the catheter. Foxily 700-800 cc was then run out back into the IV bag. Plastic tip was placed over the titanium caps. The 5 mm trochars removed under direct visualization there was no evidence of bleeding from trocar sites. The abdomen was desufflated through the left lateral subcostal port which was then removed. Posterior fashion peritoneal incision was closed with a single 2-0 Vicryl [id number] suture. The anterior fascia was approximated with a single 2-0 Vicryl [id number] suture. The skin incisions were closed with interrupted inverted 4-0 Monocryl subcuticular sutures. Dressings were applied with Mastisol and half-inch brown Steri-Strips. A Biopatch was placed around the catheter exit site and the catheter was then dressed with 4 x 4 gauze and a large rectangular Tegaderm. Patient tolerated the procedure without apparent complication. Sponge needle and instrument counts were correct at the end of the case. The patient was transported to PACU in stable condition. Brock Casillas MD March 16, 2018 18:07
[2018-03-16] MEDS: ATORVASTATIN 40 MG TAB PO SCH (21:48)
[2018-03-16] MEDS: INSULIN DETEMIR 100 UNITS/ML VIAL SQ SCH (22:04)
[2018-03-16] MEDS: ZOLPIDEM TARTRATE 5 MG TAB PO PRN (22:04)
[2018-03-17] VITALS: BP 130/62; PULSE 67; RESP 18; TEMP 97.7; O2SAT 95
[2018-03-17 04:00] VITALS: BP 146/68; PULSE 68; RESP 19; TEMP 98; O2SAT 96
[2018-03-17] MEDS: INSULIN NovoLIN REGULAR SUPPLEMENTAL SCALE SQ SCH ×5 (04:00→21:50)
[2018-03-17] MEDS: CHLORHEXIDINE GLUCONATE 2 % 1 PACK (2 CLOTHS) TOP SCH (04:00)
[2018-03-17] MEDS: LEVOTHYROXINE SODIUM 50 MCG TAB PO SCH (05:13)
[2018-03-17] MEDS: INSULIN HUMAN NPH 1,000 UNITS/10 ML VIAL SQ SCH ×3 (08:00→18:24)
[2018-03-17] MEDS: FUROSEMIDE 40 MG TAB PO SCH (08:12)
[2018-03-17] MEDS: cloNIDine HCL 0.1 MG TAB PO SCH ×2 (08:12→21:26)
[2018-03-17] MEDS: hydrALAZINE HCL 50 MG TAB PO SCH ×3 (08:12→18:23)
[2018-03-17] MEDS: CARVEDILOL 12.5 MG TAB PO SCH ×2 (08:12→21:26)
[2018-03-17] MEDS: VITAMIN B CMPLX/VITC/FOLIC AC CAP PO SCH (08:13)
[2018-03-17] MEDS: PANTOPRAZOLE SOD 40 MG DELAYED RELEASE TAB PO SCH ×2 (08:13→21:27)
[2018-03-17] MEDS: SODIUM BICARBONATE 650 MG TAB PO SCH ×2 (08:14→21:26)
[2018-03-17 08:21] VITALS: BP 166/79; PULSE 69; RESP 18; TEMP 97.8; O2SAT 96
--- NOTE | 2018-03-17 10:26 | HHI.NPPN ---
Subjective General Problems: Anemia Renal Failure: Chronic, Stage V History of Present Illness Patient is a 52 year old female with past medical history of diabetes mellitus for more than 20 years, coronary artery disease, hyperlipidemia, hypertension, chronic kidney disease, GERD, and hypothyroidism. Patient presented to hospital with nausea and vomiting. In the emergency room she was found to be hypertensive with and SBP in the 200's. She was initially treated with a cardene gtt. Her blood pressure continues to be elevated but has improved. Nephrology was consulted for elevated creatinine and BUN and having a history of needing dialysis in July. Creatinine is noted to be 4.48 today which has been increasing since admission creatinine of 3.72. Potassium is stable at 4.7. Patient does not have health insurance and has not been followed by a wire coating machine operator outpatient. She reports that she has been complaint with medication except for insulin which she has not been able to afford. Additional Remarks Seen during hemodialysis. Permacath and PD catheter placed yesterday. Patient complaining of increased pain. (Shira Frank) Review of Systems General Constitutional: Fatigue (Shira Frank) Cardiovascular Cardiac: Edema Cardiac Remarks Denies any chest pain (Shira Frank) Gastrointestinal GI Remarks Abdominal pain at PD site (Shira Frank) Objective Data Data Vital Signs Date Time Temp Pulse Resp B/P (MAP) Pulse Ox O2 Delivery O2 Flow Rate FiO2 03/17/18 08:21 97.8 69 18 166/79 (108) 96 03/17/18 04:00 98.0 68 19 146/68 (94) 96 03/17/18 00:00 97.7 67 18 130/62 (84) 95 03/16/18 20:00 97.5 58 22 132/61 (84) 94 03/16/18 18:30 97.8 59 16 144/65 (91) 95 Nasal Cannula 2 03/16/18 18:15 59 16 143/65 (91) 99 Nasal Cannula 3 03/16/18 18:00 58 17 148/63 (91) 98 Nasal Cannula 3 03/16/18 17:55 97.6 58 27 142/65 (90) 97 Nasal Cannula 3 03/16/18 15:15 67 18 127/71 (89) 99 03/16/18 14:45 62 18 128/68 (88) 98 03/16/18 14:30 97.6 65 18 137/72 (93) 92 03/16/18 14:25 97.6 63 16 137/72 (93) 93 03/16/18 12:00 98.9 69 18 135/63 (87) 95 (Shira Frank) -: 03/15/18 0808 03/15/18 0808 Imaging Last Impressions Central Venous Line 03/16/18 0000 Signed Impressions: Service Date/Time: Friday, March 16, 2018 00:00 - CONCLUSION: Uncomplicated catheter removal. Simeon Spencer MD Catheter Placement X-Ray 03/16/18 0000 Signed Impressions: Service Date/Time: Friday, March 16, 2018 14:11 - CONCLUSION: Uncomplicated PermaCath placement as above. Simeon Spencer MD Renal Ultrasound 03/07/18 0000 Signed Impressions: Service Date/Time: Wednesday, March 07, 2018 15:48 - CONCLUSION: 1. Kidneys appear slightly smaller when compared to the prior exam previously measuring 10.2 cm on the right and 10.5 on the left (now measuring 8.1 cm on the right and 9.5 on the left). Findings may be partly technical although some degree of chronic medical renal disease cannot be excluded. 2. Otherwise negative. No hydronephrosis or nephrolithiasis. Lemuel Ahuja MD Tubes & Lines: Perma-Cath, Tenckhoff Catheter Tubes & Lines Comment right chest wall (Shira Frank) Physical Exam General Appearance: No Acute Distress, Comfortable, Painful (Shira Frank) Pulmonary Resp Exam: Breath Sounds Equal, No Distress (Shira Frank) Cardiology CV Exam: Regular, Normal Sinus Rhythm (Shira Frank) Gastrointestinal/Abdomen GI Exam: Non-Tender, Bowel Sounds Present, Distended (Shira Frank) Genitourinary Exam: Flank Non-Tender (Shira Frank) Integumentary Skin Exam: Clear, Warm, Dry (Shira Frank) Extremeties Extremities Exam: Moderate Edema (Shira Frank) Neurologic Neuro Exam: Alert, Awake (Shira Frank) Psychiatric Psych Exam: Appropriate Responses (Shira Frank) Assessment/Plan Problem List: (1) Renal failure (ARF), acute on chronic ICD Codes: N17.9 - Acute kidney failure, unspecified; N18.9 - Chronic kidney disease, unspecified Plan: May have mild acute kidney injury with a creatinine of 4.48 which has increased from 3.72 on admission may be related to hypertensive crisis or poor intake. Chronic kidney disease stage 5 per records. Proteinuria noted. Possible related to hypertensive/renovascular disease/ diabetic nephropathy Has history of Hemodialysis X 1 in July Renal US: Kidneys appear slightly smaller when compared to the prior exam previously measuring 10.2 cm on the right and 10.5 on the left (now measuring 8.1 cm on the right and 9.5 on the left). Findings may be partly technical although some degree of chronic medical renal disease cannot be excluded. Otherwise negative. No hydronephrosis or nephrolithiasis. ESRD now Plan Continue lasix edema is improving. Avoid IVF administration Avoid Nephrotoxins Continue Epogen with dialysis. Venofer X 3 doses completed Case management consulted to arrange outpatient Dialysis will be at transitional dialysis Seen during hemodialysis. 2 k bath. Remove fluid as tolerated. (2) Chronic kidney disease, stage 5 ICD Codes: N18.5 - Chronic kidney disease, stage 5 Plan: hemodialysis (3) Hypertension ICD Codes: I10 - Essential (primary) hypertension Plan: Hypertension most likely pain related. Will monitor (4) Diabetes ICD Codes: E11.9 - Type 2 diabetes mellitus without complications Status: Chronic Plan: Maintain BS between 140 mg/dl to 180 mg/dl. (Shira Frank) Problem List: (1) Renal failure (ARF), acute on chronic ICD Codes: N17.9 - Acute kidney failure, unspecified; N18.9 - Chronic kidney disease, unspecified Plan: May have mild acute kidney injury with a creatinine of 4.48 which has increased from 3.72 on admission may be related to hypertensive crisis or poor intake. Chronic kidney disease stage 5 per records. Proteinuria noted. Possible related to hypertensive/renovascular disease/ diabetic nephropathy Has history of Hemodialysis X 1 in July Renal US: Kidneys appear slightly smaller when compared to the prior exam previously measuring 10.2 cm on the right and 10.5 on the left (now measuring 8.1 cm on the right and 9.5 on the left). Findings may be partly technical although some degree of chronic medical renal disease cannot be excluded. Otherwise negative. No hydronephrosis or nephrolithiasis. ESRD now Plan Continue lasix edema is improving. Avoid IVF administration Avoid Nephrotoxins Continue Epogen with dialysis. Venofer X 3 doses completed Case management consulted to arrange outpatient Dialysis will be at transitional dialysis Seen during hemodialysis. 2 k bath. Remove fluid as tolerated. Patient seen and examined, agree with above. Seen during HD, tolerating well. Post PD Catheter, to discharge once out patient HD arranged. (2) Chronic kidney disease, stage 5 ICD Codes: N18.5 - Chronic kidney disease, stage 5 Plan: hemodialysis (3) Hypertension ICD Codes: I10 - Essential (primary) hypertension Plan: Hypertension most likely pain related. Will monitor (4) Diabetes ICD Codes: E11.9 - Type 2 diabetes mellitus without complications Status: Chronic Plan: Maintain BS between 140 mg/dl to 180 mg/dl. (Adebayo Balderas MD) Problem Qualifiers (1) Hypertension: Qualified Codes: I10 - Essential (primary) hypertension Shira Frank March 17, 2018 10:26 Adebayo Balderas MD March 17, 2018 18:28
[2018-03-17] MEDS: GENTAMICIN SULFATE 20 MG/2 ML VIAL OTHER PRN (11:30)
[2018-03-17] MEDS: EPOETIN ALFA 10,000 UNITS/ML VIAL IV PUSH PRN (11:30)
[2018-03-17 13:01] VITALS: BP 169/76; PULSE 76; RESP 20; TEMP 98.4; O2SAT 97
[2018-03-17 13:57] LABS: HEMATOCRIT 26.2 % (35.0-46.0); HEMOGLOBIN 8.8 GM/DL (11.6-15.3); MEAN CELL VOLUME 84.5 FL (80.0-100.0); MEAN CORPUSCULAR HEMOGLOBIN 28.4 PG (27.0-34.0); MEAN CORPUSCULAR HGB CONC 33.5 % (32.0-36.0); MEAN PLATELET VOLUME 9.6 FL (7.0-11.0); PLATELET COUNT 140 TH/MM3 (150-450); RED CELL DISTRIBUTION WIDTH 16.2 % (11.6-17.2); WHITE BLOOD COUNT 10.9 TH/MM3 (4.0-11.0)
[2018-03-17 14:25] LABS: BICARBONATE 27.8 MEQ/L (21.0-32.0); CALCIUM 9.2 MG/DL (8.5-10.1); CREATININE 2.64 MG/DL (0.50-1.00)
--- NOTE | 2018-03-17 15:46 | HHI.PR ---
Subjective Remarks Patient received peritoneal dialysis access with surgery yesterday. Her abdomen is tender but she is eating without nausea or vomiting. She is unclear what her plans are regarding her dialysis arrangements. Objective Vitals Vital Signs Date Time Temp Pulse Resp B/P (MAP) Pulse Ox O2 Delivery O2 Flow Rate FiO2 03/17/18 13:01 98.4 76 20 169/76 (107) 97 03/17/18 08:21 97.8 69 18 166/79 (108) 96 03/17/18 04:00 98.0 68 19 146/68 (94) 96 03/17/18 00:00 97.7 67 18 130/62 (84) 95 03/16/18 20:00 97.5 58 22 132/61 (84) 94 03/16/18 18:30 97.8 59 16 144/65 (91) 95 Nasal Cannula 2 03/16/18 18:15 59 16 143/65 (91) 99 Nasal Cannula 3 03/16/18 18:00 58 17 148/63 (91) 98 Nasal Cannula 3 03/16/18 17:55 97.6 58 27 142/65 (90) 97 Nasal Cannula 3 I/O 03/16/18 03/16/18 03/16/18 03/17/18 03/17/18 03/17/18 07:00 15:00 23:00 07:00 15:00 23:00 Intake Total 350 ml Output Total 2 ml Balance 348 ml Other 350 ml Estimated Blood Loss 2 ml # Voids 3 2 1 # Bowel Movements 1 0 Result Diagram: 03/17/18 1331 03/17/18 1331 Objective Remarks GENERAL: Well-nourished, well-developed patient. Obese SKIN: Vas-Cath in right neck HEAD: Normocephalic. EYES: No scleral icterus. No injection or drainage. NECK: Supple, trachea midline. No JVD or lymphadenopathy. CARDIOVASCULAR: Regular rate and rhythm without murmurs, gallops, or rubs. RESPIRATORY: Breath sounds equal bilaterally. No accessory muscle use. GASTROINTESTINAL: Abdomen soft, non-tender, nondistended. Peritoneal dialysis access and abdomen under bandage. EXTREMITIES: No cyanosis, or edema. NEUROLOGICAL: Awake, alert, and oriented x 3. Non-focal. A/P Problem List: (1) COPD exacerbation ICD Code: J44.1 - Chronic obstructive pulmonary disease with (acute) exacerbation (2) Renal failure (ARF), acute on chronic ICD Code: N17.9 - Acute kidney failure, unspecified; N18.9 - Chronic kidney disease, unspecified (3) Chronic kidney disease, stage 5 ICD Code: N18.5 - Chronic kidney disease, stage 5 (4) Diabetes ICD Code: E11.9 - Type 2 diabetes mellitus without complications Status: Chronic (5) Hypertension ICD Code: I10 - Essential (primary) hypertension Assessment and Plan 52-year-old female admitted secondary to hypertensive urgency with hyperemesis. COPD exacerbation Continue nebulizers, O2 Prednisone taper finished Cover GERD with antireflux medications Chronic kidney disease stage IV Arrangements being made for transitional dialysis, will continue hemodialysis as outpatient until peritoneal dialysis is funded Appreciate general surgery consult Appreciate nephrology consult Hypertensive Urgency Status post Cardene drip Now stable on hydrochlorothiazide, hydralazine Elevated troponins Mostly demand perfusion mismatch, history of CAD Denies chest pain Continue Plavix and aspirin Diabetes mellitus Sliding scale insulin with Accu-Cheks Continue Levemir 25 units at bedtime. Diabetic diet Hypothyroidism Continue Synthroid Hyperlipidemia Continue statin. DVT prophylaxis SCDs Discharge Planning Patient has no insurance, transitional dialysis still being finalized, she is still postop with some pain and not yet appropriate for discharge Gatito Yusuf MD March 17, 2018 15:46
[2018-03-17 16:12] VITALS: BP 142/64; PULSE 72; RESP 20; TEMP 98.6; O2SAT 95
[2018-03-17 21:24] VITALS: BP 161/71; PULSE 81; RESP 18; TEMP 100.5; O2SAT 96
[2018-03-17] MEDS: ZOLPIDEM TARTRATE 5 MG TAB PO PRN (21:27)
[2018-03-17] MEDS: ATORVASTATIN 40 MG TAB PO SCH (21:27)
[2018-03-17] MEDS: INSULIN DETEMIR 100 UNITS/ML VIAL SQ SCH (21:49)
[2018-03-18 00:32] VITALS: BP 143/65; PULSE 86; RESP 18; TEMP 99.1; O2SAT 96
[2018-03-18] MEDS: INSULIN NovoLIN REGULAR SUPPLEMENTAL SCALE SQ SCH ×5 (03:00→21:41)
[2018-03-18] MEDS: CHLORHEXIDINE GLUCONATE 2 % 1 PACK (2 CLOTHS) TOP SCH (04:00)
[2018-03-18 04:05] VITALS: BP 128/73; PULSE 80; RESP 16; TEMP 98.9; O2SAT 95
[2018-03-18] MEDS: LEVOTHYROXINE SODIUM 50 MCG TAB PO SCH (05:30)
[2018-03-18] MEDS: ACETAMINOPHEN 325 MG TAB PO PRN ×2 (05:32→17:22)
[2018-03-18 08:00] VITALS: BP 130/61; PULSE 70; RESP 18; TEMP 98.7; O2SAT 94
[2018-03-18] MEDS: SODIUM BICARBONATE 650 MG TAB PO SCH ×2 (08:00→21:18)
[2018-03-18] MEDS: hydrALAZINE HCL 50 MG TAB PO SCH ×3 (08:00→17:21)
[2018-03-18] MEDS: PANTOPRAZOLE SOD 40 MG DELAYED RELEASE TAB PO SCH ×2 (08:01→21:19)
[2018-03-18] MEDS: cloNIDine HCL 0.1 MG TAB PO SCH ×2 (08:01→21:19)
[2018-03-18] MEDS: VITAMIN B CMPLX/VITC/FOLIC AC CAP PO SCH (08:01)
[2018-03-18] MEDS: CARVEDILOL 12.5 MG TAB PO SCH ×2 (08:01→21:19)
[2018-03-18] MEDS: FUROSEMIDE 40 MG TAB PO SCH (08:02)
[2018-03-18] MEDS: INSULIN HUMAN NPH 1,000 UNITS/10 ML VIAL SQ SCH ×3 (08:02→17:23)
--- NOTE | 2018-03-18 09:11 | HHI.PR ---
Subjective Subjective Notes Patient complains of soreness left lateral subcostal. She does not want to take any pain medications because they make her feel nauseated. She is eating and drinking fine without any difficulties. Objective Vitals/I&O Vital Signs Date Time Temp Pulse Resp B/P (MAP) Pulse Ox O2 Delivery O2 Flow Rate FiO2 03/18/18 08:00 98.7 70 18 130/61 (84) 94 03/16/18 18:30 Nasal Cannula 2 Labs Laboratory Tests Test 03/17/18 13:31 White Blood Count 10.9 Red Blood Count 3.10 Hemoglobin 8.8 Hematocrit 26.2 Mean Corpuscular Volume 84.5 Mean Corpuscular Hemoglobin 28.4 Mean Corpuscular Hemoglobin Concent 33.5 Red Cell Distribution Width 16.2 Platelet Count 140 Mean Platelet Volume 9.6 Blood Urea Nitrogen 26 Creatinine 2.64 Random Glucose 232 Calcium Level 9.2 Sodium Level 136 Potassium Level 4.2 Chloride Level 99 Carbon Dioxide Level 27.8 Anion Gap 9 Estimat Glomerular Filtration Rate 19 Abdomen: Other Extremities: No edema, Perfused A/P Assessment and Plan Postop day 2 status post laparoscopic-assisted peritoneal dialysis catheter placement. She is a candidate for starting her peritoneal dialysis low-volume over the next 2 weeks. General surgery will sign off at this time. She can follow-up with me in the office in 2-4 weeks for her postoperative appointment. I again expressed to her the importance of catheter care to avoid peritoneal dialysis catheter infection, following the instructions for catheter care by the dialysis nurses diligently. Please call me [phone] if general surgery needs to return to the care of this patient during her hospitalization. Thank you Brock Casillas MD March 18, 2018 09:11
--- NOTE | 2018-03-18 10:04 | HHI.NPPN ---
Subjective General Problems: Anemia Renal Failure: Chronic, Stage V History of Present Illness Patient is a 52 year old female with past medical history of diabetes mellitus for more than 20 years, coronary artery disease, hyperlipidemia, hypertension, chronic kidney disease, GERD, and hypothyroidism. Patient presented to hospital with nausea and vomiting. In the emergency room she was found to be hypertensive with and SBP in the 200's. She was initially treated with a cardene gtt. Her blood pressure continues to be elevated but has improved. Nephrology was consulted for elevated creatinine and BUN and having a history of needing dialysis in July. Creatinine is noted to be 4.48 today which has been increasing since admission creatinine of 3.72. Potassium is stable at 4.7. 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 She reports that she has been complaint with medication except for insulin which she has not been able to afford. Additional Remarks Permacath and PD catheter in place. Discomfort is improving. Hemodialysis yesterday. (Shira Frank) Review of Systems General Constitutional: Fatigue (Shira Frank) Cardiovascular Cardiac: Edema Cardiac Remarks Denies any chest pain (Shira Frank) Gastrointestinal GI Remarks Abdominal pain at PD site (Shira Frank) Objective Data Data Vital Signs Date Time Temp Pulse Resp B/P (MAP) Pulse Ox O2 Delivery O2 Flow Rate FiO2 03/18/18 08:00 98.7 70 18 130/61 (84) 94 03/18/18 04:05 98.9 80 16 128/73 (91) 95 03/18/18 00:32 99.1 86 18 143/65 (91) 96 03/17/18 21:24 100.5 81 18 161/71 (101) 96 03/17/18 16:12 98.6 72 20 142/64 (90) 95 03/17/18 13:01 98.4 76 20 169/76 (107) 97 (Shira Frank) -: 03/17/18 1331 03/17/18 1331 Imaging Last Impressions Central Venous Line 03/16/18 0000 Signed Impressions: Service Date/Time: Friday, March 16, 2018 00:00 - CONCLUSION: Uncomplicated catheter removal. Simeon Spencer MD Catheter Placement X-Ray 03/16/18 0000 Signed Impressions: Service Date/Time: Friday, March 16, 2018 14:11 - CONCLUSION: Uncomplicated PermaCath placement as above. Simeon Spencer MD Renal Ultrasound 03/07/18 0000 Signed Impressions: Service Date/Time: Wednesday, March 07, 2018 15:48 - CONCLUSION: 1. Kidneys appear slightly smaller when compared to the prior exam previously measuring 10.2 cm on the right and 10.5 on the left (now measuring 8.1 cm on the right and 9.5 on the left). Findings may be partly technical although some degree of chronic medical renal disease cannot be excluded. 2. Otherwise negative. No hydronephrosis or nephrolithiasis. Lemuel Ahuja MD Tubes & Lines: Perma-Cath, Tenckhoff Catheter Tubes & Lines Comment right IJ (Shira FrankP) Physical Exam General Appearance: No Acute Distress, Comfortable, Painful (Shira FrankP) Pulmonary Resp Exam: Breath Sounds Equal, No Distress (Shira Frank BLOOD OR BLOOD BANK TECHNICIAN) Cardiology CV Exam: Regular, Normal Sinus Rhythm (Shira FrankP) Gastrointestinal/Abdomen GI Exam: Non-Tender, Bowel Sounds Present, Distended GI Remarks PD cath (Shira FrankP) Genitourinary Exam: Flank Non-Tender (Shira Frank BLOOD OR BLOOD BANK TECHNICIAN) Integumentary Skin Exam: Clear, Warm, Dry (Shira Frank BLOOD OR BLOOD BANK TECHNICIAN) Extremeties Extremities Exam: Moderate Edema (Shira Frank BLOOD OR BLOOD BANK TECHNICIAN) Neurologic Neuro Exam: Alert, Awake (Shira FrankP) Psychiatric Psych Exam: Appropriate Responses (Shira Frank) Assessment/Plan Problem List: (1) Renal failure (ARF), acute on chronic ICD Codes: N17.9 - Acute kidney failure, unspecified; N18.9 - Chronic kidney disease, unspecified Plan: May have mild acute kidney injury with a creatinine of 4.48 which has increased from 3.72 on admission may be related to hypertensive crisis or poor intake. Chronic kidney disease stage 5 per records. Proteinuria noted. Possible related to hypertensive/renovascular disease/ diabetic nephropathy Has history of Hemodialysis X 1 in July Renal US: Kidneys appear slightly smaller when compared to the prior exam previously measuring 10.2 cm on the right and 10.5 on the left (now measuring 8.1 cm on the right and 9.5 on the left). Findings may be partly technical although some degree of chronic medical renal disease cannot be excluded. Otherwise negative. No hydronephrosis or nephrolithiasis. ESRD now Plan Continue lasix edema is improving. Avoid IVF administration Avoid Nephrotoxins Continue Epogen with dialysis. Dialysis will be at transitional dialysis, Dr. Balderas to sign orders Hemodialysis tomorrow (2) Chronic kidney disease, stage 5 ICD Codes: N18.5 - Chronic kidney disease, stage 5 Plan: hemodialysis (3) Hypertension ICD Codes: I10 - Essential (primary) hypertension Plan: Hypertension most likely pain related. Will monitor (4) Diabetes ICD Codes: E11.9 - Type 2 diabetes mellitus without complications Status: Chronic Plan: Maintain BS between 140 mg/dl to 180 mg/dl. (Shira Frank) Problem List: (1) Renal failure (ARF), acute on chronic ICD Codes: N17.9 - Acute kidney failure, unspecified; N18.9 - Chronic kidney disease, unspecified Plan: May have mild acute kidney injury with a creatinine of 4.48 which has increased from 3.72 on admission may be related to hypertensive crisis or poor intake. Chronic kidney disease stage 5 per records. Proteinuria noted. Possible related to hypertensive/renovascular disease/ diabetic nephropathy Has history of Hemodialysis X 1 in July Renal US: Kidneys appear slightly smaller when compared to the prior exam previously measuring 10.2 cm on the right and 10.5 on the left (now measuring 8.1 cm on the right and 9.5 on the left). Findings may be partly technical although some degree of chronic medical renal disease cannot be excluded. Otherwise negative. No hydronephrosis or nephrolithiasis. ESRD now Plan Continue lasix edema is improving. Avoid IVF administration Avoid Nephrotoxins Continue Epogen with dialysis. Dialysis will be at transitional dialysis, Dr. Balderas to sign orders Hemodialysis tomorrow. Patient seen and examined, agree with above. Out Patient HD arrangement in progress. (2) Chronic kidney disease, stage 5 ICD Codes: N18.5 - Chronic kidney disease, stage 5 Plan: hemodialysis (3) Hypertension ICD Codes: I10 - Essential (primary) hypertension Plan: Hypertension most likely pain related. Will monitor (4) Diabetes ICD Codes: E11.9 - Type 2 diabetes mellitus without complications Status: Chronic Plan: Maintain BS between 140 mg/dl to 180 mg/dl. (Adebayo Balderas MD) Problem Qualifiers (1) Hypertension: Qualified Codes: I10 - Essential (primary) hypertension Shira Frank March 18, 2018 10:04 Adebayo Balderas MD March 22, 2018 18:34
[2018-03-18 12:00] VITALS: BP 128/59; PULSE 65; RESP 18; TEMP 98; O2SAT 94
--- NOTE | 2018-03-18 14:16 | RADRPT ---
EXAM DATE/TIME: 03/18/2018 13:58 [facility] COMPARISON: CHEST SINGLE AP, October 23, 2017, 20:51. CHEST PA & LAT, May 09, 2015, 10:27. INDICATIONS : Evaluate for cavitary lesions. MEDICAL HISTORY : Hypertension. Diabetes mellitus type II. SURGICAL HISTORY : Cholecystectomy. section. Tubal ligation. ENCOUNTER: Subsequent ACUITY: 3 weeks PAIN SCORE: 0/10 LOCATION: Bilateral chest FINDINGS: Frontal and lateral view of the chest demonstrates a double-lumen central catheter with tip projectin g over the mid superior vena cava. No evidence of pneumothorax. Ill-defined opacity in the right in frahilar region is a new finding from prior examination and may represent a focal area of infiltrate. The left lung is clear. Both hemidiaphragms are well delineated. CONCLUSION: There is a new ill-defined infiltrate right infrahilar region. Central catheter in good position wit hout evidence of pneumothorax. Mauricio Layton MD on March 18, 2018 at 14:13 Board Certified Radiologist. This report was verified electronically.
[2018-03-18 16:00] VITALS: BP 131/67; PULSE 66; RESP 18; TEMP 98; O2SAT 97
--- NOTE | 2018-03-18 17:04 | HHI.PR ---
Subjective Remarks Patient states she is tired and still somewhat tender in her abdominal region from undergoing surgery yesterday. She denies any nausea and vomiting. She denies fevers. Objective Vitals Vital Signs Date Time Temp Pulse Resp B/P (MAP) Pulse Ox O2 Delivery O2 Flow Rate FiO2 03/18/18 12:00 98.0 65 18 128/59 (82) 94 03/18/18 08:00 98.7 70 18 130/61 (84) 94 03/18/18 04:05 98.9 80 16 128/73 (91) 95 03/18/18 00:32 99.1 86 18 143/65 (91) 96 03/17/18 21:24 100.5 81 18 161/71 (101) 96 I/O 03/17/18 03/17/18 03/17/18 03/18/18 03/18/18 03/18/18 07:00 15:00 23:00 07:00 15:00 23:00 # Voids 1 1 1 # Bowel Movements 0 Result Diagram: 03/17/18 1331 03/17/18 1331 Objective Remarks GENERAL: Well-nourished, well-developed patient. Obese SKIN: Vas-Cath in right neck HEAD: Normocephalic. EYES: No scleral icterus. No injection or drainage. NECK: Supple, trachea midline. No JVD or lymphadenopathy. CARDIOVASCULAR: Regular rate and rhythm without murmurs, gallops, or rubs. RESPIRATORY: Breath sounds equal bilaterally. No accessory muscle use. GASTROINTESTINAL: Abdomen soft, non-tender, nondistended. Peritoneal dialysis access and abdomen under bandage. EXTREMITIES: No cyanosis, or edema. NEUROLOGICAL: Awake, alert, and oriented x 3. Non-focal. A/P Problem List: (1) COPD exacerbation ICD Code: J44.1 - Chronic obstructive pulmonary disease with (acute) exacerbation (2) Renal failure (ARF), acute on chronic ICD Code: N17.9 - Acute kidney failure, unspecified; N18.9 - Chronic kidney disease, unspecified (3) Chronic kidney disease, stage 5 ICD Code: N18.5 - Chronic kidney disease, stage 5 (4) Diabetes ICD Code: E11.9 - Type 2 diabetes mellitus without complications Status: Chronic (5) Hypertension ICD Code: I10 - Essential (primary) hypertension Assessment and Plan 52-year-old female admitted secondary to hypertensive urgency with hyperemesis. COPD exacerbation Continue nebulizers, O2 Prednisone taper finished Chest x-ray shows mild infiltrate in the infrahilar region, patient is asymptomatic Cover GERD with antireflux medications Chronic kidney disease stage IV Transitional dialysis has been arranged, will continue hemodialysis as outpatient until peritoneal dialysis is funded Appreciate general surgery consult Appreciate nephrology consult Hypertensive Urgency Status post Cardene drip Now stable on hydrochlorothiazide, hydralazine Elevated troponins Mostly demand perfusion mismatch, history of CAD Denies chest pain Continue Plavix and aspirin Diabetes mellitus Sliding scale insulin with Accu-Cheks Continue Levemir 25 units at bedtime. Diabetic diet Hypothyroidism Continue Synthroid Hyperlipidemia Continue statin. DVT prophylaxis SCDs Discharge Planning Plan for discharge after dialysis treatment tomorrow morning, she now has outpatient transitional dialysis arranged Gatito Yusuf MD March 18, 2018 17:04
[2018-03-18 20:00] VITALS: BP 132/61; PULSE 68; RESP 18; TEMP 97.9; O2SAT 95
[2018-03-18] MEDS: ATORVASTATIN 40 MG TAB PO SCH (21:19)
[2018-03-18] MEDS: ZOLPIDEM TARTRATE 5 MG TAB PO PRN (21:38)
[2018-03-18] MEDS: INSULIN DETEMIR 100 UNITS/ML VIAL SQ SCH (21:41)
[2018-03-19 04:00] VITALS: BP 138/64; PULSE 65; RESP 18; TEMP 98.7; O2SAT 97
[2018-03-19] MEDS: INSULIN NovoLIN REGULAR SUPPLEMENTAL SCALE SQ SCH ×3 (04:54→12:09)
[2018-03-19] MEDS: CHLORHEXIDINE GLUCONATE 2 % 1 PACK (2 CLOTHS) TOP SCH (04:55)
[2018-03-19] MEDS: LEVOTHYROXINE SODIUM 50 MCG TAB PO SCH (05:55)
[2018-03-19 06:26] LABS: BASOPHIL % 0.6 % (0.0-2.0); EOSINOPHIL # 0.2 TH/MM3 (0-0.4); EOSINOPHIL % 2.6 % (0.0-4.0); HEMATOCRIT 21.9 % (35.0-46.0); HEMOGLOBIN 7.5 GM/DL (11.6-15.3); LYMPH % 15.8 % (9.0-44.0); LYMPHOCYTE # 1.1 TH/MM3 (1.0-4.8); MEAN CELL VOLUME 83.3 FL (80.0-100.0); MEAN CORPUSCULAR HEMOGLOBIN 28.4 PG (27.0-34.0); MEAN CORPUSCULAR HGB CONC 34.1 % (32.0-36.0); MONO % 11.9 % (0.0-8.0); MONOCYTE # 0.9 TH/MM3 (0-0.9); NEUT % 69.1 % (16.0-70.0); PLATELET COUNT 142 TH/MM3 (150-450); RED BLOOD COUNT 2.63 MIL/MM3 (4.00-5.30); RED CELL DISTRIBUTION WIDTH 15.7 % (11.6-17.2); WHITE BLOOD COUNT 7.2 TH/MM3 (4.0-11.0)
[2018-03-19 08:00] VITALS: BP 140/65; PULSE 64; RESP 20; TEMP 99.1; O2SAT 97
[2018-03-19] MEDS: INSULIN HUMAN NPH 1,000 UNITS/10 ML VIAL SQ SCH ×2 (08:26→12:27)
[2018-03-19] MEDS ORDERED: AMLO10TA2 PO (09:19)
[2018-03-19] MEDS ORDERED: LEVA500T33 PO (09:19)
[2018-03-19] MEDS ORDERED: ATOR40TA16 PO (09:19)
[2018-03-19] MEDS ORDERED: HYDR-3800 PO (09:19)
[2018-03-19] MEDS ORDERED: NEPHRO PO (09:19)
[2018-03-19] MEDS ORDERED: LEVEMIR SQ (09:19)
[2018-03-19] MEDS ORDERED: PLAV75TA29 PO (09:19)
[2018-03-19] MEDS ORDERED: HYDR-3516 PO (09:19)
[2018-03-19] MEDS ORDERED: LEVO.05 PO (09:19)
[2018-03-19] MEDS ORDERED: NITR0.4S SL (09:19)
[2018-03-19] MEDS ORDERED: CLON.1 PO (09:19)
[2018-03-19] MEDS ORDERED: CARV12.5 PO (09:19)
[2018-03-19] MEDS ORDERED: Albuterol-Ipratropium Neb INH (09:21)
[2018-03-19] MEDS ORDERED: COMPRESSOR NEBU1 MIS (09:21)
[2018-03-19] MEDS ORDERED: MEDR4PAK PO (09:21)
--- NOTE | 2018-03-19 09:29 | HHI.DS ---
Discharge Summary Admission Date Mar 03, 2018 at 18:43 Discharge Date: March 19, 2018 Admitting Diagnosis Hypertensive urgency, nausea and vomiting (1) COPD exacerbation ICD Code: J44.1 - Chronic obstructive pulmonary disease with (acute) exacerbation (2) Renal failure (ARF), acute on chronic ICD Code: N17.9 - Acute kidney failure, unspecified; N18.9 - Chronic kidney disease, unspecified (3) Chronic kidney disease, stage 5 ICD Code: N18.5 - Chronic kidney disease, stage 5 (4) Diabetes ICD Code: E11.9 - Type 2 diabetes mellitus without complications Status: Chronic (5) Hypertension ICD Code: I10 - Essential (primary) hypertension Procedures Vas Cath placement, Peritoneal Dialysis Catheter Placement Brief History - From Admission This is a 52yF with a history of CAD who was otherwise in her normal state of health and woke up today with severe nausea, vomiting. she states is bilious, nonbloody. she also has diarrhea which is non-bloody and light brown in color. she had meatballs for dinner last night but does not think there is an association. she denies fever, chills. no other sick contacts. she does state that the last time she had a heart attack it felt like this with nausea. she denies chest pain, shortness of breath, PENNY, orthopnea. denies headache, blurry vision. denies any other changes to her health. she states she does not have a PCP or a abstract clerk. she states the last time she was admitted, she got 12 month refills on her medications. ROS is otherwise negative. In the emergency department, she was noted to have Cr 3.72 which is around her baseline, Cr 0.06 which is below her baseline, and blood pressure in the 250s systolic which was not responsive to multiple iv boluses of hydralazine. she was started on nicardipine drip for hypertensive urgency. CBC/BMP: 03/19/18 0528 03/17/18 1331 Significant Findings Laboratory Tests Test 03/17/18 13:31 03/19/18 05:28 Red Blood Count 3.10 MIL/MM3 (4.00-5.30) 2.63 MIL/MM3 (4.00-5.30) Hemoglobin 8.8 GM/DL (11.6-15.3) 7.5 GM/DL (11.6-15.3) Hematocrit 26.2 % (35.0-46.0) 21.9 % (35.0-46.0) Platelet Count 140 TH/MM3 (150-450) 142 TH/MM3 (150-450) Blood Urea Nitrogen 26 MG/DL (7-18) Creatinine 2.64 MG/DL (0.50-1.00) Random Glucose 232 MG/DL (74-106) Estimat Glomerular Filtration Rate 19 ML/MIN (>89) Monocytes (%) (Auto) 11.9 % (0.0-8.0) PE at Discharge GENERAL: Well-nourished, well-developed patient. Obese SKIN: Vas-Cath in right neck HEAD: Normocephalic. EYES: No scleral icterus. No injection or drainage. NECK: Supple, trachea midline. No JVD or lymphadenopathy. CARDIOVASCULAR: Regular rate and rhythm without murmurs, gallops, or rubs. RESPIRATORY: Breath sounds equal bilaterally. No accessory muscle use. GASTROINTESTINAL: Abdomen soft, non-tender, nondistended. Peritoneal dialysis access and abdomen under bandage. EXTREMITIES: No cyanosis, or edema. NEUROLOGICAL: Awake, alert, and oriented x 3. Non-focal. Hospital Course This is a 52-year-old female who presented on March 03 to the ER with hypertensive urgency, nausea vomiting, COPD exacerbation, fluid overload, end- stage renal disease. She had previously been dealing with chronic kidney disease but had not yet reached the point where she was in need of dialysis. On this days she did require dialysis and a Vas-Cath was placed, hemodialysis was started. Her fluid balance is returned to normal, her COPD symptoms cleared up, and overall she improved slowly. She has SSI pending, which means that she has no coverage for outpatient dialysis at this time. She has been arranged to be on the transitional dialysis program until her Social Security benefits come through. In discussion with patient she elected to proceed in the future with peritoneal dialysis, so a peritoneal dialysis catheter was placed surgically during her stay. She currently has arrangements for dialysis today then she can go home and resume outpatient hemodialysis starting this Thursday and following a pattern of Thursday. If she has any trouble or any exacerbation of her symptoms she is requested to return to the ER immediately. Otherwise she has outpatient follow-ups with general surgery and nephrology for further management. Pt Condition on Discharge: Good Discharge Disposition: Discharge Home Discharge Time: <= 30 minutes Discharge Instructions DIET: Follow Instructions for: Dialysis Diet Activities you can perform: Weight Bearing as Gatito Sánchez MD March 19, 2018 09:28
--- NOTE | 2018-03-19 09:36 | HHI.NPPN ---
Subjective General Problems: Anemia Renal Failure: Chronic, Stage V History of Present Illness Patient is a 52 year old female with past medical history of diabetes mellitus for more than 20 years, coronary artery disease, hyperlipidemia, hypertension, chronic kidney disease, GERD, and hypothyroidism. Patient presented to hospital with nausea and vomiting. In the emergency room she was found to be hypertensive with and SBP in the 200's. She was initially treated with a cardene gtt. Her blood pressure continues to be elevated but has improved. Nephrology was consulted for elevated creatinine and BUN and having a history of needing dialysis in July. Creatinine is noted to be 4.48 today which has been increasing since admission creatinine of 3.72. Potassium is stable at 4.7. Patient does not have health insurance and has not been followed by a site foreman outpatient. She reports that she has been complaint with medication except for insulin which she has not been able to afford. Additional Remarks Seen during hemodialysis, tolerating well. (Shira Frank) Review of Systems General Constitutional: Fatigue (Shira Frank) Respiratory Respiratory Remarks Denies any SOB (Shira Frank) Cardiovascular Cardiac: Edema Cardiac Remarks Denies any chest pain (Shira Frank) Gastrointestinal GI Remarks Abdominal pain at PD site (Shira Frank) Objective Data Data Vital Signs Date Time Temp Pulse Resp B/P (MAP) Pulse Ox O2 Delivery O2 Flow Rate FiO2 03/19/18 08:00 99.1 64 20 140/65 (90) 97 03/19/18 04:00 98.7 65 18 138/64 (88) 97 03/18/18 20:00 97.9 68 18 132/61 (84) 95 03/18/18 16:00 98.0 66 18 131/67 (88) 97 03/18/18 12:00 98.0 65 18 128/59 (82) 94 (Shira Frank) -: 03/19/18 0528 03/17/18 1331 Imaging Last Impressions Chest X-Ray 03/18/18 0000 Signed Impressions: Service Date/Time: March 13:58 - CONCLUSION: There is a new ill-defined infiltrate right infrahilar region. Central catheter in good position without evidence of pneumothorax. Mauricio Layton MD Central Venous Line 03/16/18 0000 Signed Impressions: Service Date/Time: Friday, March 16, 2018 00:00 - CONCLUSION: Uncomplicated catheter removal. Simeon Spencer MD Catheter Placement X-Ray 03/16/18 0000 Signed Impressions: Service Date/Time: Friday, March 16, 2018 14:11 - CONCLUSION: Uncomplicated PermaCath placement as above. Simeon Spencer MD Renal Ultrasound 03/07/18 0000 Signed Impressions: Service Date/Time: Wednesday, March 07, 2018 15:48 - CONCLUSION: 1. Kidneys appear slightly smaller when compared to the prior exam previously measuring 10.2 cm on the right and 10.5 on the left (now measuring 8.1 cm on the right and 9.5 on the left). Findings may be partly technical although some degree of chronic medical renal disease cannot be excluded. 2. Otherwise negative. No hydronephrosis or nephrolithiasis. Lemuel Ahuja MD Tubes & Lines: Perma-Cath, Tenckhoff Catheter Tubes & Lines Comment right IJ (Shira Frank. CHILD CARE COORDINATOR) Physical Exam General Appearance: No Acute Distress, Comfortable, Painful (Shira Frank. CHILD CARE COORDINATOR) Pulmonary Resp Exam: Breath Sounds Equal, No Distress (Shira Frank M. CHILD CARE COORDINATOR) Cardiology CV Exam: Regular, Normal Sinus Rhythm (Shira Frank M. CHILD CARE COORDINATOR) Gastrointestinal/Abdomen GI Exam: Non-Tender, Bowel Sounds Present, Distended GI Remarks PD cath (Shira Frank. CHILD CARE COORDINATOR) Genitourinary Exam: Flank Non-Tender (Shira Frank. CHILD CARE COORDINATOR) Integumentary Skin Exam: Clear, Warm, Dry (Shira Frank. CHILD CARE COORDINATOR) Extremeties Extremities Exam: Moderate Edema (Shira Frank M. CHILD CARE COORDINATOR) Neurologic Neuro Exam: Alert, Awake (Shira Frank M. CHILD CARE COORDINATOR) Psychiatric Psych Exam: Appropriate Responses (Shira FrankP) Assessment/Plan Problem List: (1) Renal failure (ARF), acute on chronic ICD Codes: N17.9 - Acute kidney failure, unspecified; N18.9 - Chronic kidney disease, unspecified Plan: May have mild acute kidney injury with a creatinine of 4.48 which has increased from 3.72 on admission may be related to hypertensive crisis or poor intake. Chronic kidney disease stage 5 per records. Proteinuria noted. Possible related to hypertensive/renovascular disease/ diabetic nephropathy Has history of Hemodialysis X 1 in July Renal US: Kidneys appear slightly smaller when compared to the prior exam previously measuring 10.2 cm on the right and 10.5 on the left (now measuring 8.1 cm on the right and 9.5 on the left). Findings may be partly technical although some degree of chronic medical renal disease cannot be excluded. Otherwise negative. No hydronephrosis or nephrolithiasis. ESRD now Plan Continue lasix edema is improving. Avoid IVF administration Avoid Nephrotoxins HGB 7.5 today, Epogen 10,000 units with dialysis. Seen during hemodialysis tolerating well, 3 k bath Plans for discharge today and will be during transitional dialysis starting on Thursday. (2) Chronic kidney disease, stage 5 ICD Codes: N18.5 - Chronic kidney disease, stage 5 Plan: hemodialysis (3) Hypertension ICD Codes: I10 - Essential (primary) hypertension Plan: Will monitor (4) Diabetes ICD Codes: E11.9 - Type 2 diabetes mellitus without complications Status: Chronic Plan: Maintain BS between 140 mg/dl to 180 mg/dl. (Shira Frank) Problem List: (1) Renal failure (ARF), acute on chronic ICD Codes: N17.9 - Acute kidney failure, unspecified; N18.9 - Chronic kidney disease, unspecified Plan: May have mild acute kidney injury with a creatinine of 4.48 which has increased from 3.72 on admission may be related to hypertensive crisis or poor intake. Chronic kidney disease stage 5 per records. Proteinuria noted. Possible related to hypertensive/renovascular disease/ diabetic nephropathy Has history of Hemodialysis X 1 in July Renal US: Kidneys appear slightly smaller when compared to the prior exam previously measuring 10.2 cm on the right and 10.5 on the left (now measuring 8.1 cm on the right and 9.5 on the left). Findings may be partly technical although some degree of chronic medical renal disease cannot be excluded. Otherwise negative. No hydronephrosis or nephrolithiasis. ESRD now Plan Continue lasix edema is improving. Avoid IVF administration Avoid Nephrotoxins HGB 7.5 today, Epogen 10,000 units with dialysis. Seen during hemodialysis tolerating well, 3 k bath Plans for discharge today and will be during transitional dialysis starting on Thursday. Patient seen and examined, agree with above. For discharge and continue out Patient HD and PD training. (2) Chronic kidney disease, stage 5 ICD Codes: N18.5 - Chronic kidney disease, stage 5 Plan: hemodialysis (3) Hypertension ICD Codes: I10 - Essential (primary) hypertension Plan: Will monitor (4) Diabetes ICD Codes: E11.9 - Type 2 diabetes mellitus without complications Status: Chronic Plan: Maintain BS between 140 mg/dl to 180 mg/dl. (Adebayo Balderas MD) Problem Qualifiers (1) Hypertension: Qualified Codes: I10 - Essential (primary) hypertension Shira Frank March 19, 2018 09:36 Adebayo Balderas MD March 22, 2018 18:35
[2018-03-19] MEDS: GENTAMICIN SULFATE 20 MG/2 ML VIAL OTHER PRN (11:32)
[2018-03-19] MEDS: EPOETIN ALFA 10,000 UNITS/ML VIAL IV PUSH PRN (11:32)
[2018-03-19] MEDS: cloNIDine HCL 0.1 MG TAB PO SCH (12:15)
[2018-03-19] MEDS: hydrALAZINE HCL 50 MG TAB PO SCH (12:15)
[2018-03-19] MEDS: PANTOPRAZOLE SOD 40 MG DELAYED RELEASE TAB PO SCH (12:15)
[2018-03-19] MEDS: CARVEDILOL 12.5 MG TAB PO SCH (12:16)
[2018-03-19] MEDS: VITAMIN B CMPLX/VITC/FOLIC AC CAP PO SCH (12:16)
[2018-03-19] MEDS: FUROSEMIDE 40 MG TAB PO SCH (12:16)
[2018-03-19] MEDS: SODIUM BICARBONATE 650 MG TAB PO SCH (12:16)
== END 2018-03-19 13:50 | disposition home or self-care (01) | DRG 981 ==
LOC: NEPE 14:38 → NEDA 18:43 → HIMW 21:45 → N05B 03-05 21:45
PROVIDERS: ADMIT Family Medicine; ATTEND Family Medicine
PROC: 05HM33Z Insertion of Infusion Device into Right Internal Jugular Vein, Percutaneous Approach (ICD-10-PCS; 2018-03-09)
PROC: 5A1D70Z Performance of Urinary Filtration, Intermittent, Less than 6 Hours Per Day (ICD-10-PCS; 2018-03-09)
PROC: 05HM33Z Insertion of Infusion Device into Right Internal Jugular Vein, Percutaneous Approach (ICD-10-PCS; 2018-03-16)
PROC: 0WHG43Z Insertion of Infusion Device into Peritoneal Cavity, Percutaneous Endoscopic Approach (ICD-10-PCS; principal; 2018-03-16 16:27)
DX: I16.1 Hypertensive emergency (principal); N18.6 End stage renal disease; N17.9 Acute kidney failure, unspecified; E11.22 Type 2 diabetes mellitus with diabetic chronic kidney disease; J44.1 Chronic obstructive pulmonary disease with (acute) exacerbation; Z68.41 Body mass index [BMI] 40.0-44.9, adult; E03.9 Hypothyroidism, unspecified; I25.10 Atherosclerotic heart disease of native coronary artery without angina pectoris; I25.2 Old myocardial infarction; R19.7 Diarrhea, unspecified; K21.9 Gastro-esophageal reflux disease without esophagitis; E78.5 Hyperlipidemia, unspecified; F12.90 Cannabis use, unspecified, uncomplicated; E66.9 Obesity, unspecified; R04.0 Epistaxis; D64.9 Anemia, unspecified; Z90.49 Acquired absence of other specified parts of digestive tract; E87.70 Fluid overload, unspecified; Z87.891 Personal history of nicotine dependence; Z91.120 Patient's intentional underdosing of medication regimen due to financial hardship; Z95.5 Presence of coronary angioplasty implant and graft; Z79.82 Long term (current) use of aspirin; Z79.4 Long term (current) use of insulin; Z84.1 Family history of disorders of kidney and ureter
CPT/HCPCS: 36556; 36558; 71046; 76775; 76937; 77001; 80048; 80053; 80074; 81001; 82550; 82728; 82947; 82948; 83540; 83550; 83690; 84100; 84484; 85007; 85025; 85027; 85610; 85730; 87641; 90935; 93005; 94150; 94667; 94668; 96361; 96374; 96375; 96376; 99152; 99153; C1750; C1752; C1769; C9113; J0131; J0360; J0780; J1580; J1644; J1756; J1815; J2250; J2270; J2405; J2550; J2920; J3010; J3370; J7030; J7050; J7512; Q4081

== ENCOUNTER 2018-04-03 00:18 | Inpatient (IN) | payer OTHER ==
[~2018-04-03] VITALS: Ht 165.1 cm; Wt 96.0 kg
[2018-04-03] VITALS (15 sets, daily range): BP systolic 110–238; BP diastolic 56–107; PULSE 81–108; RESP 13–26; TEMP 97.3–98.5; O2SAT 95–100
[~2018-04-03 00:18] MED LIST changes: +Albuterol-Ipratropium Neb INH; +COMPRESSOR NEBU1 MIS; +HYDR-3516 PO; +LEVA500T33 PO; +MEDR4PAK PO; +NEPHRO PO
[2018-04-03] MEDS ORDERED: PROMETHAZINE INJ 25 MG/ML VIAL IM ONE (02:15)
[2018-04-03] MEDS ORDERED: SODIUM CHLORIDE 0.9% FLUSH 10 ML FLUSH IVF PRN (02:15)
[2018-04-03] MEDS ORDERED: SODIUM CHLORID 0.9% 500 ML INJ 500 ML IV ONE (02:15)
[2018-04-03 02:28] LABS: AUTOMATED NEUTROPHIL # 6.9 TH/MM3 (1.8-7.7); BASOPHIL # 0.1 TH/MM3 (0-0.2); BASOPHIL % 0.9 % (0.0-2.0); EOSINOPHIL # 0.1 TH/MM3 (0-0.4); EOSINOPHIL % 0.7 % (0.0-4.0); HEMATOCRIT 39.7 % (35.0-46.0); HEMOGLOBIN 13.3 GM/DL (11.6-15.3); LYMPH % 12.4 % (9.0-44.0); LYMPHOCYTE # 1.1 TH/MM3 (1.0-4.8); MEAN CELL VOLUME 84.5 FL (80.0-100.0); MEAN CORPUSCULAR HEMOGLOBIN 28.3 PG (27.0-34.0); MEAN CORPUSCULAR HGB CONC 33.6 % (32.0-36.0); MEAN PLATELET VOLUME 8.5 FL (7.0-11.0); MONO % 8.2 % (0.0-8.0); MONOCYTE # 0.7 TH/MM3 (0-0.9); NEUT % 77.8 % (16.0-70.0); PLATELET COUNT 360 TH/MM3 (150-450); RED CELL DISTRIBUTION WIDTH 17.2 % (11.6-17.2); WHITE BLOOD COUNT 8.9 TH/MM3 (4.0-11.0)
[2018-04-03 02:47] LABS: ALBUMIN 3.5 GM/DL (3.4-5.0); ALKALINE PHOSPHATASE 127 U/L (45-117); ALT (GPT) 25 U/L (10-53); AST (GOT) 26 U/L (15-37); BICARBONATE 26.2 MEQ/L (21.0-32.0); BLOOD UREA NITROGEN 26 MG/DL (7-18); CALCIUM 10.8 MG/DL (8.5-10.1); CHLORIDE 92 MEQ/L (98-107); GLOMERULAR FILTRATION RATE 7 ML/MIN (>89); GLUCOSE,RANDOM 411 MG/DL (74-106); SODIUM (NA) 135 MEQ/L (136-145); TOTAL BILIRUBIN ADULT 0.6 MG/DL (0.2-1.0); TOTAL PROTEIN 8.2 GM/DL (6.4-8.2); TROPONIN I LESS THAN 0.02 NG/ML (0.02-0.05)
[2018-04-03] MEDS ORDERED: ONDANSETRON ODT 4 MG TAB PO ONE (04:15)
[2018-04-03] MEDS ORDERED: LACTULOSE SYRUP 20 GM/30 ML CUP PO PRN (04:30)
[2018-04-03] MEDS ORDERED: SENNOSIDES 8.6 MG TAB PO PRN (04:30)
[2018-04-03] MEDS ORDERED: MORPHINE SULFATE 2 MG/ML SYRINGE IV PUSH PRN (04:30)
[2018-04-03] MEDS ORDERED: ACETAMINOPHEN 325 MG TAB PO PRN ×2 (04:30→18:15)
[2018-04-03] MEDS ORDERED: BISACODYL 10 MG SUPP RECTAL PRN (04:30)
[2018-04-03] MEDS ORDERED: SODIUM CHLORIDE 0.9% FLUSH 10 ML FLUSH IV FLUSH PRN ×2 (04:30→18:15)
[2018-04-03] MEDS ORDERED: GLUCAGON 1 MG/ML VIAL OTHER PRN (04:45)
[2018-04-03] MEDS ORDERED: PANTOPRAZOLE SODIUM 40 MG VIAL IV PUSH ONE (04:45)
[2018-04-03] MEDS ORDERED: DEXTROSE 50% IN WATER 50 ML VIAL(D50) IV PUSH PRN (04:45)
--- NOTE | 2018-04-03 04:48 | HHI.HP ---
HPI Service [facility] Primary Care Physician No Primary Care Physician Admission Diagnosis gastroenteritis Diagnoses: (1) Gastroenteritis Diagnosis: Principal (2) Intractable nausea and vomiting Diagnosis: Principal (3) ESRD on hemodialysis Diagnosis: Principal (4) HTN (hypertension) Diagnosis: Principal Travel History International Travel<30 Days: No Contact w/Intl Traveler <30 Da: No Traveled to Known Affected Are: No History of Present Illness This is a 52-year-old female with a PMH of HTN, COPD, Hyperlipidemia, CAD and ESRD on HD M/W/ who presented to the ER w/ complaints of nausea, vomiting and diarrhea starting earlier last night. States she had dialysis on Thursday like usual, normally has some nausea following HD, however this time has had multiple episodes of nausea w/ vomiting in addition to bloody diarrhea. No h/o similar symptoms in the past. Denies fever, chills or abdominal pain. On arrival, BP 218/98, HR 92, O2 sat 100% RA, Afebrile. CBC unremarkable. Creatinine 6.0, previously 5.43 on 03/29/2018. C Diff pending. Review of Systems Except as stated in HPI: all other systems reviewed are Neg ROS: 14 point review of systems otherwise negative. Past Family Social History Past Medical History PMH: HTN, COPD, Hyperlipidemia, CAD and ESRD on HD M/W/ Past Surgical History PAST SURGICAL HISTORY: Cardiac Stent, Appendectomy, Cholecystectomy Allergies: Coded Allergies: cephalexin (Verified Allergy, Severe, 10/23/17) Family History PAST FAMILY HISTORY: Reviewed. No h/o DM or CAD Social History PAST SOCIAL HISTORY: Negative for alcohol, tobacco or drugs. Physical Exam Vital Signs Vital Signs Date Time Temp Pulse Resp B/P (MAP) Pulse Ox O2 Delivery O2 Flow Rate FiO2 04/03/18 01:00 97.3 92 22 218/98 (138) 100 Physical Exam PE: GENERAL: Middle-aged white female in mild distress, sitting at the edge of bed w / retching. HEENT: PERRLA, EOMI. No scleral icterus or conjunctival pallor. No lid lag or facial droop. CARDIOVASCULAR: Regular rate and rhythm. No obvious murmurs to auscultation. No chest tenderness to palpation. RESPIRATORY: No obvious rhonchi or wheezing. Clear to auscultation. Breath sounds equal bilaterally. GASTROINTESTINAL: Abdomen soft, diffuse mild tenderness, nondistended. BS normal. MUSCULOSKELETAL: Extremities without clubbing, cyanosis, or edema. No obvious deformities. NEUROLOGICAL: Awake, alert and oriented x4. No focal neurologic deficits. Moving both upper and lower extremities spontaneously. Laboratory Laboratory Tests Test 04/03/18 02:08 04/03/18 04:19 White Blood Count 8.9 Red Blood Count 4.70 Hemoglobin 13.3 Hematocrit 39.7 Mean Corpuscular Volume 84.5 Mean Corpuscular Hemoglobin 28.3 Mean Corpuscular Hemoglobin Concent 33.6 Red Cell Distribution Width 17.2 Platelet Count 360 Mean Platelet Volume 8.5 Neutrophils (%) (Auto) 77.8 Lymphocytes (%) (Auto) 12.4 Monocytes (%) (Auto) 8.2 Eosinophils (%) (Auto) 0.7 Basophils (%) (Auto) 0.9 Neutrophils # (Auto) 6.9 Lymphocytes # (Auto) 1.1 Monocytes # (Auto) 0.7 Eosinophils # (Auto) 0.1 Basophils # (Auto) 0.1 CBC Comment DIFF FINAL Differential Comment Blood Urea Nitrogen 26 Creatinine 6.00 Random Glucose 411 Total Protein 8.2 Albumin 3.5 Calcium Level 10.8 Alkaline Phosphatase 127 Aspartate Amino Transf (AST/SGOT) 26 Alanine Aminotransferase (ALT/SGPT) 25 Total Bilirubin 0.6 Sodium Level 135 Potassium Level 3.7 Chloride Level 92 Carbon Dioxide Level 26.2 Anion Gap 17 Estimat Glomerular Filtration Rate 7 Troponin I LESS THAN 0.02 Result Diagram: 04/03/1820704/03/18207 Caprini VTE Risk Assessment Caprini VTE Risk Assessment: No/Low Risk (score <= 1) Caprini Risk Assessment Model Point Value = 1 Point Value = 2 Point Value = 3 Point Value = 5 Age 41-60 Minor surgery BMI > 25 kg/m2 Swollen legs Varicose veins or History of unexplained or recurrent spontaneous Oral contraceptives or hormone replacement Sepsis (< 1 month) Serious lung disease, including pneumonia (< 1 month) Abnormal pulmonary function Acute myocardial infarction Congestive heart failure (< 1 month) History of inflammatory bowel disease Medical patient at bed rest Age 61-74 Arthroscopic surgery Major open surgery (> 45 min) Laparoscopic surgery (> 45 min) Malignancy Confined to bed (> 72 hours) Immobilizing plaster cast Central venous access Age >= 75 History of VTE Family history of VTE Factor V Leiden Prothrombin [id number] Lupus anticoagulant Anticardiolipin antibodies Elevated serum homocysteine Heparin-induced thrombocytopenia Other congenital or acquired thrombophilia Stroke (< 1 month) Elective arthroplasty Hip, pelvis, or leg fracture Acute spinal cord injury (< 1 month) Prophylaxis Regimen Total Risk Factor Score Risk Level Prophylaxis Regimen 0-1 Low Early ambulation 2 Moderate Order ONE of the following: *Sequential Compression Device (SCD) *Heparin 5000 units SQ BID 3-4 Higher Order ONE of the following medications: *Heparin 5000 units SQ TID *Enoxaparin/Lovenox 40 mg SQ daily (WT < 150 kg, CrCl > 30 mL/min) *Enoxaparin/Lovenox 30 mg SQ daily (WT < 150 kg, CrCl > 10-29 mL/min) *Enoxaparin/Lovenox 30 mg SQ BID (WT < 150 kg, CrCl > 30 mL/min) AND/OR *Sequential Compression Device (SCD) 5 or more Highest Order ONE of the following medications: *Heparin 5000 units SQ TID (Preferred with Epidurals) *Enoxaparin/Lovenox 40 mg SQ daily (WT < 150 kg, CrCl > 30 mL/min) *Enoxaparin/Lovenox 30 mg SQ daily (WT < 150 kg, CrCl > 10-29 mL/min) *Enoxaparin/Lovenox 30 mg SQ BID (WT < 150 kg, CrCl > 30 mL/min) AND *Sequential Compression Device (SCD) Assessment and Plan Problem List: (1) Gastroenteritis ICD Code: K52.9 - Noninfective gastroenteritis and colitis, unspecified (2) Intractable nausea and vomiting ICD Code: R11.2 - Nausea with vomiting, unspecified (3) ESRD on hemodialysis ICD Code: N18.6 - End stage renal disease; Z99.2 - Dependence on renal dialysis (4) HTN (hypertension) ICD Code: I10 - Essential (primary) hypertension Assessment and Plan A/P: 1. Gastroenteritis: acute onset of nausea/vomiting and diarrhea, send stool cultures, supportive treatment w/ analgesics/antiemetics, s/p Zofran in ER w/ minimal improvement. 2. Intractable Nausea/Vomiting: secondary to above, continue w/ analgesics/ antiemetics as needed. IVF-caution w/ ESRD. 3. ESRD on HD: M/W/F, follows w/ Dr. Balderas, will consult to resume HD as scheduled. 4. HTN: Uncontrolled. Likely compounded by acute nausea/vomiting, BP 218/98, HR 92 on arrival, antihypertensives as needed for BP >180 5. DVT Prophylaxis: Heparin sq 6. Social work for d/c planning as needed 7. Case discussed w/ ER physician at length, labs/records/imaging reviewed by me. Aleisha Horner MD April 03, 2018 04:48
[2018-04-03] MEDS: PROCHLORPERAZINE INJ 10 MG/2 ML VIAL IV PUSH PRN ×2 (04:58→12:01)
--- NOTE | 2018-04-03 05:24 | PD ---
HPI Chief Complaint: GI Complaint Time Seen by Provider: 02:01 Travel History International Travel<30 days: No Contact w/Intl Traveler<30days: No Traveled to known affect area: No History of Present Illness HPI This is a 52 year old female who has a history of ESRD who presents to the emergency department with nausea, vomiting and diarrhea that started immediately after she completed dialysis today. She says she has vomited atleast once an hour since this started, and everytime she vomits she has loose , watery stool. Her symptoms have been constant throughout the day and worsening. She denies any abdominal pain. She denies any chest pain, although she says the last time she felt this bad was when she had a heart attack. She has had no known sick contacts and has not been on antibiotics recently. She is training currently on a peritoneal dialysis catheter. PFSH Past Medical History Hx Anticoagulant Therapy: Yes (Plavix) Heart Rhythm Problems: Yes Cancer: No Cardiovascular Problems: Yes (HTN, [place] with stent x2) Chest Pain: Yes COPD: Yes Diabetes: Yes Patient Takes Glucophage: Yes Dialysis: Yes (HD today, training for PD) Diminished Hearing: No Endocrine: Yes Gastrointestinal Disorders: Yes Genitourinary: Yes Hypertension: Yes Immune Disorder: No Implanted Vascular Access Dvce: Yes (R SC HD Cath. ) Musculoskeletal: No Neurologic: No Psychiatric: No Reproductive: No Respiratory: Yes (COPD) Immunizations Current: Yes Thyroid Disease: Yes ?: Not Tubal Ligation: Yes Past Surgical History Abdominal Surgery: Yes (appendix, PD cath) Appendectomy: Yes Section: Yes Cholecystectomy: Yes Coronary Stent: Yes (2X - 07/2017) Other Surgery: Yes (BOTH UNDERARMS HX BOILS) Social History Alcohol Use: No (QUIT) Tobacco Use: No (QUIT) Substance Use: No Allergies-Medications (Allergen,Severity, Reaction): Coded Allergies: cephalexin (Verified Allergy, Severe, 10/23/17) Reported Meds & Prescriptions Reported Meds & Active Scripts Active Compressor Nebulizer 1 Mis Mis Ea .XX DIRECTED Medrol Dosepak (Methylprednisolone) 4 Mg Dspk 4 Mg PO DIRECTED PRN Per Pharmacist direction [Albuterol-Ipratropium Neb] 1 AMPULE Nebu 1 Ampule INH Q2HR NEB PRN 30 Days Levaquin (Levofloxacin) 500 Mg Tablet 500 Mg PO DAILY 7 Days Nephro-Gurjit Rx (Vitamin B Cmplx/Vit C/Folic AC) 1 Tab 1 Cap PO DAILY 30 Days Hydrocodone-Acetamin 5-325 mg (Hydrocodone/Acetaminophen) 5 Mg-325 Mg Tablet 1 Tab PO Q6HR PRN 7 Days Catapres (Clonidine) 0.1 Mg Tab 0.1 Mg PO Q6H PRN 30 Days Coreg (Carvedilol) 12.5 Mg Tab 12.5 Mg PO Q12HR 30 Days Synthroid (Levothyroxine Sodium) 50 Mcg Tab 50 Mcg PO DAILY@0600 30 Days Levemir Inj (Insulin Detemir) 1,000 unit/ 10 ML Vial 10 Units SQ HS 30 Days Do not mix with any other Insulin. Amlodipine (Amlodipine Besylate) 10 Mg Tab 10 Mg PO DAILY 30 Days Nitrostat SL (Nitroglycerin) 0.4 Mg Subl 0.4 Mg SL UNSCH PRN 30 Days Hydralazine HCl 50 Mg Tablet 100 Mg PO TID 30 Days Atorvastatin (Atorvastatin Calcium) 40 Mg Tab 40 Mg PO HS 30 Days Plavix (Clopidogrel Bisulfate) 75 Mg Tab 75 Mg PO DAILY 30 Days [Bmp] 2XWEEK Patient needs BMP twice a week until GFR 15ml/min, then once a week or less Blood Glucose Monitoring W/Device (Device) 1 Kit Kit Kit .ROUTE DIRECTED [facility] Insulin Syringe/ 29G X 1/2" 0.3 ml 29 Gauge X 1/2" Mis Box .ROUTE DIRECTED [place] 29GX1/2" 29G X 12Mm (Insulin Pen Needle) 29 Gauge X 1/2" Mis Box SQ DIRECTED Review of Systems Except as stated in HPI: all other systems reviewed are Neg Physical Exam Narrative GENERAL: Uncomfortable appearing SKIN: Warm and dry. HEAD: Atraumatic. Normocephalic. EYES: Pupils equal and round. No scleral icterus. No injection or drainage. ENT: No nasal bleeding or discharge. Mucous membranes pink and moist. NECK: Trachea midline. CARDIOVASCULAR: Regular rate and rhythm. RESPIRATORY: No accessory muscle use. Clear to auscultation. Breath sounds equal bilaterally. GASTROINTESTINAL: Abdomen soft, non-tender, nondistended. Peritoneal dialysis catheter in place. MUSCULOSKELETAL: Extremities without clubbing, cyanosis, or edema. No obvious deformities. NEUROLOGICAL: Awake and alert. No obvious cranial nerve deficits. Moving all extremities.. PSYCHIATRIC: Appropriate mood and affect; insight and judgment normal. Data Data Last Documented VS Vital Signs Date Time Temp Pulse Resp B/P (MAP) Pulse Ox O2 Delivery O2 Flow Rate FiO2 04/03/18 01:00 97.3 92 22 218/98 (138) 100 Orders Orders Electrocardiogram (04/03/18 02:07) Complete Blood Count With Diff (04/03/18 02:07) Comprehensive Metabolic Panel (04/03/18 02:07) Troponin I (04/03/18 02:07) Ecg Monitoring (04/03/18 02:07) Bilateral Bp Monitoring (04/03/18 02:07) Iv Access Insert/Monitor (04/03/18 02:07) Oximetry (04/03/18 02:07) Oxygen Administration (04/03/18 02:07) Sodium Chloride 0.9% Flush (Ns Flush) (04/03/18 02:15) Promethazine Inj (Phenergan Inj) (04/03/18 02:15) Sodium Chlorid 0.9% 500 Ml Inj (Ns 500 M (04/03/18 02:15) Ondansetron Odt (Zofran Odt) (04/03/18 04:15) C Diff Toxin Pcr (04/03/18 04:10) Admit Order (Ed Use Only) (04/03/18 04:25) Labs Laboratory Tests Test 04/03/18 02:08 04/03/18 04:19 White Blood Count 8.9 TH/MM3 Red Blood Count 4.70 MIL/MM3 Hemoglobin 13.3 GM/DL Hematocrit 39.7 % Mean Corpuscular Volume 84.5 FL Mean Corpuscular Hemoglobin 28.3 PG Mean Corpuscular Hemoglobin Concent 33.6 % Red Cell Distribution Width 17.2 % Platelet Count 360 TH/MM3 Mean Platelet Volume 8.5 FL Neutrophils (%) (Auto) 77.8 % Lymphocytes (%) (Auto) 12.4 % Monocytes (%) (Auto) 8.2 % Eosinophils (%) (Auto) 0.7 % Basophils (%) (Auto) 0.9 % Neutrophils # (Auto) 6.9 TH/MM3 Lymphocytes # (Auto) 1.1 TH/MM3 Monocytes # (Auto) 0.7 TH/MM3 Eosinophils # (Auto) 0.1 TH/MM3 Basophils # (Auto) 0.1 TH/MM3 CBC Comment DIFF FINAL Differential Comment Blood Urea Nitrogen 26 MG/DL Creatinine 6.00 MG/DL Random Glucose 411 MG/DL Total Protein 8.2 GM/DL Albumin 3.5 GM/DL Calcium Level 10.8 MG/DL Alkaline Phosphatase 127 U/L Aspartate Amino Transf (AST/SGOT) 26 U/L Alanine Aminotransferase (ALT/SGPT) 25 U/L Total Bilirubin 0.6 MG/DL Sodium Level 135 MEQ/L Potassium Level 3.7 MEQ/L Chloride Level 92 MEQ/L Carbon Dioxide Level 26.2 MEQ/L Anion Gap 17 MEQ/L Estimat Glomerular Filtration Rate 7 ML/MIN Troponin I LESS THAN 0.02 NG/ML Stool C. difficile Toxin (PCR) NEGATIVE Stl C. difficile Toxin Epiderm 027 PRESUMPTIVE NEGATIVE MDM Medical Decision Making Medical Screen Exam Complete: Yes Emergency Medical Condition: Yes Interpretation(s) Afebrile, mild tachycardia, hypertensive No leukocytosis 77% neutrophils Hyponatremia Hypercalcemia Troponin is normal Differential Diagnosis Myocardial infarction, gastroenteritis, dehydration, C. difficile colitis Narrative Course This is a 52-year-old female who has a history of end-stage renal disease who presents to the emergency department with nausea vomiting and diarrhea. Here in the emergency department she was given Phenergan and Zofran but she continues to vomit and she started to have bloody diarrhea. She was placed on a monitor and an IV was established. She was given 500 cc of IV fluid. Labs are all reassuring. Patient will be placed in observation for intractable vomiting. Diagnosis Primary Impression: Intractable nausea and vomiting Qualified Codes: R11.2 - Nausea with vomiting, unspecified Admitting Information Admitting Physician Requests: Observation Jazmín Fu MD April 03, 2018 05:24
[2018-04-03] MEDS ORDERED: hydrALAZINE HCL 20 MG/ML VIAL IV PUSH ONE (06:15)
[2018-04-03] MEDS ORDERED: hydrALAZINE HCL 100 MG TAB PO ONE (07:30)
[2018-04-03] MEDS ORDERED: LEVOTHYROXINE SODIUM 50 MCG TAB PO ONE (08:00)
[2018-04-03] MEDS ORDERED: cloNIDine HCL 0.1 MG TAB PO PRN ×2 (08:45→18:15)
[2018-04-03] MEDS: SODIUM CHLORIDE 0.9% FLUSH 10 ML FLUSH IV FLUSH SCH ×2 (08:55→21:41)
[2018-04-03] MEDS: DOCUSATE SODIUM 50 MG/SENNA 8.6 MG TAB PO SCH ×2 (09:00→21:39)
[2018-04-03] MEDS: CARVEDILOL 12.5 MG TAB PO SCH ×2 (09:00→21:38)
[2018-04-03] MEDS: METOCLOPRAMIDE HCL 10 MG/2 ML VIAL IV PUSH PRN ×2 (09:03→15:26)
[2018-04-03] MEDS: INSULIN ASPART SUPPLEMENTAL SCALE SQ SCH ×4 (09:16→21:40)
[2018-04-03] MEDS ORDERED: LABETALOL HCL 100 MG/20 ML VIAL IV PUSH ONE (10:15)
[2018-04-03] MEDS: HEPARIN SODIUM - SQ 10,000 UNITS/ML VIAL SQ SCH ×2 (10:50→21:39)
[2018-04-03] MEDS ORDERED: cloNIDine HCL 0.3 MG/24 HR PATCH T-DERMAL ONE (13:00)
--- NOTE | 2018-04-03 13:41 | EKG ---
Date Performed: 04/03/2018 Time Performed: 02:33:04 PTAGE: 52 years EKG: SINUS TACHYCARDIA ST DEVIATION AND MODERATE T-WAVE ABNORMALITY, CONSIDER LATERAL ISCHEMIA A BNORMAL ECG PREVIOUS TRACING : 03/03/2018 15.08 Since the previous tracing, no significant change noted DOCTOR: Andrés Escobar Interpretating Date/Time 04/03/2018 13:40:46
[2018-04-03] MEDS: hydrALAZINE HCL 100 MG TAB PO SCH ×2 (14:02→21:38)
[2018-04-03] MEDS ORDERED: INSULIN ASPART 1,000 UNITS/10 ML VIAL SQ ONE (15:15)
[2018-04-03] MEDS ORDERED: SODIUM CHLOR 0.9% 1000 ML INJ 1,000 ML OTHER PRN ×2 (18:01)
[2018-04-03] MEDS ORDERED: SODIUM CHLOR 0.9% 1000 ML INJ 1,000 ML IV PRN (18:01)
[2018-04-03] MEDS ORDERED: ALBUMIN 25% INJ 100 ML IV PRN (18:15)
[2018-04-03] MEDS ORDERED: HEPARIN SODIUM - IV 10,000 UNITS/10 ML VIAL IV FLUSH PRN (18:15)
[2018-04-03] MEDS ORDERED: ONDANSETRON ODT 4 MG TAB PO PRN (18:15)
[2018-04-03] MEDS ORDERED: diphenhydrAMINE HCL 25 MG CAP PO PRN (18:15)
[2018-04-03] MEDS ORDERED: MANNITOL 12.5 GM/50 ML VIAL IV PRN (18:15)
[2018-04-03] MEDS ORDERED: NITROGLYCERIN 0.4 MG SL 25 TABS/BTL SL PRN (18:15)
[2018-04-03] MEDS ORDERED: HEPARIN SODIUM - IV 10,000 UNITS/10 ML VIAL PRN (18:15)
[2018-04-03] MEDS ORDERED: GELATIN 12 MM/7 MM FOAM TOP PRN (18:15)
--- NOTE | 2018-04-03 18:41 | MB ---
cc: Anatoly Lemus MD, Daniel V MD DATE: 04/03/2018 REASON FOR CONSULTATION: ESRD management. HISTORY OF PRESENT ILLNESS: This is a 52-year-old female with a history of hypertension, COPD, dyslipidemia, coronary artery disease and end-stage renal disease. The patient is on the transitional dialysis program here at [facility] and receives her dialysis on Mondays, Wednesdays and Fridays. She is followed up as an outpatient with Dr. Balderas. The patient has been doing training with peritoneal dialysis and has a peritoneal dialysis catheter in place. She has done 2 exchanges with 1000 mL and did 1 exchange previously on . On Thursday, she came for her regular dialysis session. She was feeling somewhat tired and, at home, cooked dinner with steak tips and rice. Afterwards, she began to have symptoms of nausea and vomiting as well as diarrhea. She came here to the emergency room with ongoing nausea and vomiting and symptoms of bloody diarrhea. She also presented with hypertension with a systolic blood pressure of 218. She was admitted with the primary team. The patient was assessed with gastroenteritis and was given supportive treatment with Zofran initially. Her blood pressure medications were resumed and her blood pressure has improved this afternoon. The last reading was a systolic blood pressure of 110s. At this time, the patient is resting in bed comfortably. Her stool cultures have been negative to date. She reports she is feeling much better and feels like she could likely go home soon. Given her ESRD and hypertension, nephrology was consulted for further evaluation. REVIEW OF SYSTEMS: The patient reports having nausea and vomiting which have improved. Diarrhea with some blood in the stools which have improved at this point. No chest pains. No dizziness or loss of consciousness. Otherwise, review of systems is negative. PAST MEDICAL HISTORY: Includes hypertension, COPD, dyslipidemia, CAD, ESRD on dialysis Thursday, Thursday and followed up with Dr. Balderas. The patient is being evaluated for peritoneal dialysis and is undergoing training at outpatient [facility] for peritoneal dialysis and she has a PD catheter in place. PAST SURGICAL HISTORY: Includes cardiac stent, appendectomy, cholecystectomy and peritoneal dialysis catheter. ALLERGIES: CEPHALEXIN ALLERGY. FAMILY HISTORY: No history of diabetes or CAD. SOCIAL HISTORY: No alcohol, tobacco or drug use. PHYSICAL EXAMINATION: VITAL SIGNS: At time of evaluation, temperature 98.5, pulse 97, respiratory rate 18, blood pressure 110/56, pulse oximetry 98% on room air. GENERAL: Awake, alert, oriented, in no apparent distress. NECK: Soft, supple, no lymphadenopathy. CARDIAC: Regular rate and rhythm. No murmurs, rubs, gallops. LUNGS: Clear to auscultation bilaterally. ABDOMEN: Soft, nontender, nondistended. PD catheter in place. Exit site clean and dry. EXTREMITIES: No edema. LABORATORY DATA: White count 8.9, hemoglobin 13.3, hematocrit 39.7, platelet count 360. Sodium 135, potassium 3.7, chloride 92, bicarbonate 26, BUN 26, creatinine 6, glucose of 411. ASSESSMENT AND PLAN: 1. End-stage renal disease. The patient is on hemodialysis at the Transitional dialysis here at [facility] with Thursday, Thursday, Thursday dialysis. She had her last treatment on Thursday. We will plan for next dialysis on Thursday if the patient is still here. If she is discharged, she can continue with her transitional hemodialysis as an outpatient. Of note, the patient is also doing peritoneal dialysis training. She has no signs of any peritonitis at this point and it appears that her symptoms are secondary to p.o. intake possibly from steak tips, which she had cooked at home. Nobody else ate these and may be the reason for etiology of nausea and vomiting. At this point, continue to monitor. If she has persistent symptoms, may check peritoneal dialysis fluid cell count and culture. However, at this point asymptomatic and reports her symptoms have improved. Continue to closely monitor at this time. Volume status and electrolytes are otherwise stable. 2. Gastroenteritis. The patient has a negative stool testing for C difficile. Continue to follow the stool cultures. She reports her symptoms have improved with antiemetics. There is no suspicions for any peritonitis from the peritoneal dialysis catheter at this point. If she is feeling stable, she may potentially be discharged tomorrow from a renal standpoint. She reports she is feeling much better this evening. 3. Hypertension. The patient presented with significant hypertension with a blood pressure of 218/98. She was unable to take her p.o. medication; however, these have been resumed and her blood pressure is improved at this point. Continue with her p.o. medications including Hydralazine 100 mg p.o. q.8h, amlodipine 10 mg p.o. every day, Coreg 12.5 mg every day and clonidine 0.1 mg p.r.n. 4. Elevated glucose. The patient had a glucose of 411 on her BMP. Repeat labs in the morning. If elevated, may consider further evaluation. We will go ahead and check a hemoglobin A1c as well. MD BRYAN George/ , 06:03 PM , 06:41 PM KARY
[2018-04-04] VITALS (13 sets, daily range): BP systolic 131–169; BP diastolic 55–82; PULSE 71–87; RESP 17–20; TEMP 97.6–98.9; O2SAT 92–97
[2018-04-04] MEDS: LEVOTHYROXINE SODIUM 50 MCG TAB PO SCH (06:19)
[2018-04-04] MEDS: hydrALAZINE HCL 100 MG TAB PO SCH ×3 (06:19→20:28)
[2018-04-04 07:17] LABS: ALBUMIN 2.9 GM/DL (3.4-5.0); ALKALINE PHOSPHATASE 112 U/L (45-117); ALT (GPT) 18 U/L (10-53); AST (GOT) 14 U/L (15-37); BICARBONATE 30.2 MEQ/L (21.0-32.0); BLOOD UREA NITROGEN 37 MG/DL (7-18); CALCIUM 10.6 MG/DL (8.5-10.1); CHLORIDE 94 MEQ/L (98-107); CREATININE 6.98 MG/DL (0.50-1.00); GLOMERULAR FILTRATION RATE 6 ML/MIN (>89); GLUCOSE,RANDOM 245 MG/DL (74-106); SODIUM (NA) 137 MEQ/L (136-145); TOTAL BILIRUBIN ADULT 0.5 MG/DL (0.2-1.0); TOTAL PROTEIN 6.7 GM/DL (6.4-8.2)
[2018-04-04] MEDS: PROCHLORPERAZINE INJ 10 MG/2 ML VIAL IV PUSH PRN (07:28)
[2018-04-04 07:35] LABS: AUTOMATED NEUTROPHIL # 9.4 TH/MM3 (1.8-7.7); BASOPHIL # 0.1 TH/MM3 (0-0.2); BASOPHIL % 0.6 % (0.0-2.0); EOSINOPHIL # 0.2 TH/MM3 (0-0.4); EOSINOPHIL % 1.5 % (0.0-4.0); HEMATOCRIT 33.3 % (35.0-46.0); HEMOGLOBIN 11.1 GM/DL (11.6-15.3); LYMPH % 17.2 % (9.0-44.0); LYMPHOCYTE # 2.2 TH/MM3 (1.0-4.8); MEAN CELL VOLUME 83.7 FL (80.0-100.0); MEAN CORPUSCULAR HEMOGLOBIN 27.9 PG (27.0-34.0); MEAN CORPUSCULAR HGB CONC 33.4 % (32.0-36.0); MEAN PLATELET VOLUME 8.4 FL (7.0-11.0); MONO % 8.7 % (0.0-8.0); MONOCYTE # 1.1 TH/MM3 (0-0.9); PLATELET COUNT 352 TH/MM3 (150-450); RED BLOOD COUNT 3.98 MIL/MM3 (4.00-5.30); RED CELL DISTRIBUTION WIDTH 17.2 % (11.6-17.2)
[2018-04-04] MEDS: HEPARIN SODIUM - SQ 10,000 UNITS/ML VIAL SQ SCH ×2 (07:41→20:29)
[2018-04-04] MEDS: CARVEDILOL 12.5 MG TAB PO SCH ×2 (07:41→20:28)
[2018-04-04] MEDS: SODIUM CHLORIDE 0.9% FLUSH 10 ML FLUSH IV FLUSH SCH ×2 (07:44→20:29)
[2018-04-04] MEDS: INSULIN ASPART SUPPLEMENTAL SCALE SQ SCH ×4 (08:00→21:01)
[2018-04-04] MEDS: DOCUSATE SODIUM 50 MG/SENNA 8.6 MG TAB PO SCH ×2 (08:06→20:28)
[2018-04-04] MEDS: METOCLOPRAMIDE HCL 10 MG/2 ML VIAL IV PUSH PRN (09:18)
--- NOTE | 2018-04-04 09:24 | HHI.PR ---
Subjective Remarks With diarrhea 15 times says there is also some blood in diarrhea Not able to keep down anything Antiemetics doesn't work much No chest pain Some diffuse abdominal pain. No fever or chills. Objective Vitals Vital Signs Date Time Temp Pulse Resp B/P (MAP) Pulse Ox O2 Delivery O2 Flow Rate FiO2 04/04/18 08:57 92 21 04/04/18 08:20 73 04/04/18 08:00 97.6 77 20 156/74 (101) 93 04/04/18 07:00 Room Air 04/04/18 04:00 98.1 82 20 140/55 (83) 96 04/04/18 04:00 Room Air 04/04/18 03:52 85 04/04/18 00:00 Room Air 04/04/18 00:00 98.0 85 20 131/68 (89) 97 04/03/18 20:23 81 04/03/18 20:00 97.8 81 20 142/68 (92) 98 04/03/18 16:00 97 04/03/18 16:00 98.5 108 18 110/56 (74) 98 04/03/18 11:15 98.3 85 18 215/102 (139) 95 04/03/18 11:01 04/03/18 10:00 86 20 189/92 (124) 99 Room Air 04/03/18 09:30 94 16 238/107 (150) 97 Room Air I/O 04/03/18 04/03/18 04/03/18 04/04/18 04/04/18 04/04/18 07:00 15:00 23:00 07:00 15:00 23:00 Intake Total 500 ml 240 ml 480 ml Balance 500 ml 240 ml 480 ml Intake Oral 240 ml 480 ml IV Total 500 ml # Voids 3 3 # Bowel Movements 0 Result Diagram: 04/04/18 0532 04/04/18 0532 Objective Remarks GENERAL: Middle-aged white female in mild distress, sitting at the edge of bed w / retching. HEENT: PERRLA, EOMI. No scleral icterus or conjunctival pallor. No lid lag or facial droop. CARDIOVASCULAR: Regular rate and rhythm. No obvious murmurs to auscultation. No chest tenderness to palpation. RESPIRATORY: No obvious rhonchi or wheezing. Clear to auscultation. Breath sounds equal bilaterally. GASTROINTESTINAL: Abdomen soft, diffuse mild tenderness, nondistended. BS normal. MUSCULOSKELETAL: Extremities without clubbing, cyanosis, or edema. No obvious deformities. NEUROLOGICAL: Awake, alert and oriented x4. No focal neurologic deficits. Moving both upper and lower extremities spontaneously. A/P Problem List: (1) Gastroenteritis ICD Code: K52.9 - Noninfective gastroenteritis and colitis, unspecified (2) Intractable nausea and vomiting ICD Code: R11.2 - Nausea with vomiting, unspecified (3) ESRD on hemodialysis ICD Code: N18.6 - End stage renal disease; Z99.2 - Dependence on renal dialysis (4) HTN (hypertension) ICD Code: I10 - Essential (primary) hypertension Assessment and Plan Gastroenteritis: acute onset of nausea/vomiting and diarrhea, send stool cultures, C diff is negative. Continue supportive treatment w/ analgesics/ antiemetics, received Zofran minimal improvement added reglan. Add phenergan as patient with persistent nausea and vomiting Intractable Nausea/Vomiting: secondary to above, continue w/ analgesics/ antiemetics as needed. IVF-caution w/ ESRD. received Zofran minimal improvement added reglan. Add phenergan as patient with persistent nausea and vomiting ESRD on HD: M/W/F, follows w/ Dr. Balderas, will consult to resume HD as scheduled. HTN: Uncontrolled. Likely compounded by acute nausea/vomiting, BP 218/98, HR 92 on arrival, antihypertensives as needed for BP >180 DVT Prophylaxis: Heparin sq CM consulted for DC planning as needed DC plan: pending improvement and clearance from consultants. Problem Qualifiers (1) Intractable nausea and vomiting: Qualified Codes: R11.2 - Nausea with vomiting, unspecified Mena Álvarez MD April 04, 2018 09:24
[2018-04-04 11:38] LABS: HEMOGLOBIN A1C 6.9 % (4.3-6.0)
[2018-04-04] MEDS ORDERED: PROMETHAZINE INJ 25 MG/ML VIAL IM PRN (13:00)
[2018-04-04] MEDS: PROMETHAZINE HCL 25 MG TAB PO PRN (13:32)
--- NOTE | 2018-04-04 14:56 | HHI.NPPN ---
Subjective Additional Remarks Ongoing nausea and vomiting Objective Data Data Vital Signs Date Time Temp Pulse Resp B/P (MAP) Pulse Ox O2 Delivery O2 Flow Rate FiO2 04/04/18 12:00 98.4 75 20 148/70 (96) 94 04/04/18 08:57 92 21 04/04/18 08:20 73 04/04/18 08:00 97.6 77 20 156/74 (101) 93 04/04/18 07:00 Room Air 04/04/18 04:00 98.1 82 20 140/55 (83) 96 04/04/18 04:00 Room Air 04/04/18 03:52 85 04/04/18 00:00 Room Air 04/04/18 00:00 98.0 85 20 131/68 (89) 97 04/03/18 20:23 81 04/03/18 20:00 97.8 81 20 142/68 (92) 98 04/03/18 16:00 97 04/03/18 16:00 98.5 108 18 110/56 (74) 98 -: 04/04/18 0532 04/04/18 0532 Physical Exam General Appearance: No Acute Distress Eyes Eye Exam: Pupils Equal Throat Throat Exam: Oral Mucosa [place] & Moist Neck Neck Exam: Neck Supple Pulmonary Resp Exam: Clear Bilaterally Cardiology CV Exam: Regular, Normal Sinus Rhythm Gastrointestinal/Abdomen GI Exam: Soft, Non-Tender Integumentary Skin Exam: Warm, Dry, Intact Extremeties Extremities Exam: No Edema Neurologic Neuro Exam: Alert, Awake, Oriented, Speech Clear, Moving All Extremities Psychiatric Psych Exam: Appropriate Responses Assessment/Plan Problem List: (1) End-stage renal disease (ESRD) ICD Codes: N18.6 - End stage renal disease Plan: The patient is on hemodialysis at the Transitional dialysis here at [facility] with Thursday, Thursday, Thursday dialysis. She had her last treatment on Thursday. Volume status stable, next HD tomorrow. Continue MWF HD here. Potassium slightly low with GI losses, adjust HD bath tomorrow. Of note, the patient is also doing peritoneal dialysis training. She has no signs of any peritonitis at this point and it appears that her symptoms are secondary to p.o. intake possibly from steak tips , which she had cooked at home. If she has persistent symptoms, may check peritoneal dialysis fluid cell count and culture tomorrow. Continue to closely monitor at this time. (2) Gastroenteritis ICD Codes: K52.9 - Noninfective gastroenteritis and colitis, unspecified Plan: Ongoing symptoms, continue supportive care. May consider GI evaluation if little improvement. (3) HTN (hypertension) ICD Codes: I10 - Essential (primary) hypertension Plan: BP improved, now tolerating PO meds. Continue to monitor. Anatoly Lemus MD April 04, 2018 14:56
[2018-04-04] MEDS: MAGNESIUM HYDROXIDE SUSP 30 ML CUP PO PRN (19:15)
[2018-04-05] VITALS (10 sets, daily range): BP systolic 136–155; BP diastolic 67–74; PULSE 55–85; RESP 16–18; TEMP 97.9–98.6; O2SAT 95–97
[2018-04-05] MEDS: hydrALAZINE HCL 100 MG TAB PO SCH ×3 (05:17→20:50)
[2018-04-05] MEDS: LEVOTHYROXINE SODIUM 50 MCG TAB PO SCH (05:17)
[2018-04-05] MEDS: MAGNESIUM HYDROXIDE SUSP 30 ML CUP PO PRN (06:33)
[2018-04-05] MEDS: DOCUSATE SODIUM 50 MG/SENNA 8.6 MG TAB PO SCH ×2 (09:00→20:51)
[2018-04-05] MEDS: INSULIN ASPART SUPPLEMENTAL SCALE SQ SCH ×4 (10:00→20:52)
--- NOTE | 2018-04-05 10:35 | HHI.NPPN ---
Subjective Complaints: Abdominal Pain Renal Failure: End Stage Renal Disease History of Present Illness The patient is on the transitional dialysis program here at [facility] and receives her dialysis on Mondays, Wednesdays and Fridays. She is followed up as an outpatient with Dr. Balderas. The patient has been doing training with peritoneal dialysis and has a peritoneal dialysis catheter in place. She has done 2 exchanges with 1000 mL and did 1 exchange previously on . On Thursday, she came for her regular dialysis session. She was feeling somewhat tired and, at home, cooked dinner with steak tips and rice. Afterwards, she began to have symptoms of nausea and vomiting as well as diarrhea. She camehere to the emergency room with ongoing nausea and vomiting and symptoms of bloody diarrhea. She also presented with hypertension with a systolic blood pressure of 218. She was admitted with the primary team. The patient was assessed with gastroenteritis and was given supportive treatment with Zofran initially. Her blood pressure medications were resumed and her blood pressure has improved this afternoon. The last reading was a systolic blood pressure of 110s. At this time, the patient is resting in bed comfortably. Her stool cultures have been negative to date. She reports she is feeling much better and feels like she could likely go home soon. Given her ESRD and hypertension , nephrology was consulted for further evaluation Additional Remarks Seen during hemodialysis. Continues to have loose stools, abdominal tenderness , and nausea. (Shira Frank) Review of Systems Respiratory Respiratory Remarks Denies SOB (Shira Frank) Gastrointestinal Gastrointestinal: Abdominal Pain, Nausea & Vomiting, Diarrhea (Shira Frank) Objective Data Data Vital Signs Date Time Temp Pulse Resp B/P (MAP) Pulse Ox O2 Delivery O2 Flow Rate FiO2 04/05/18 08:09 97.9 76 18 136/71 (92) 96 04/05/18 04:00 Room Air 04/05/18 03:54 77 04/05/18 00:00 98.1 79 16 153/72 (99) 95 04/04/18 23:55 75 04/04/18 20:01 82 04/04/18 20:00 98.1 87 17 169/82 (111) 94 04/04/18 19:54 Room Air 04/04/18 16:35 83 04/04/18 16:00 98.9 74 20 152/70 (97) 97 04/04/18 12:30 71 04/04/18 12:00 98.4 75 20 148/70 (96) 94 (Shira Frank) -: 04/04/18 0532 04/04/18 0532 Physical Exam General Appearance: No Acute Distress (Shira Frank) Eyes Eye Exam: Pupils Equal (Shira Frank) Throat Throat Exam: Oral Mucosa [place] & Moist (Shira Frank) Neck Neck Exam: Neck Supple (Shira Frank) Pulmonary Resp Exam: Clear Bilaterally (Shira Frank) Cardiology CV Exam: Regular, Normal Sinus Rhythm (Shira Frank) Gastrointestinal/Abdomen GI Exam: Soft, Non-Tender (Shria Frank) Integumentary Skin Exam: Warm, Dry, Intact (Shira Frank) Extremeties Extremities Exam: No Edema (Shira Frank) Neurologic Neuro Exam: Alert, Awake, Oriented, Speech Clear, Moving All Extremities (Shira Frank) Psychiatric Psych Exam: Appropriate Responses (Shira Frank) Assessment/Plan Problem List: (1) End-stage renal disease (ESRD) ICD Codes: N18.6 - End stage renal disease Plan: The patient is on hemodialysis at the Transitional dialysis here at [facility] with Thursday, Thursday, Thursday dialysis. Continue MWF HD here. Of note, the patient is also doing peritoneal dialysis training. She has no signs of any peritonitis at this point and it appears that her symptoms are secondary to p.o. intake possibly from steak tips , which she had cooked at home. Will send peritoneal dialysis fluid cell count and culture. Continue to closely monitor at this time. Seen during hemodialysis may not be able to complete treatment with N/V/ diarrhea. Hypercalcemia not on replacement Labs ordered for AM Labs pending for today (2) Gastroenteritis ICD Codes: K52.9 - Noninfective gastroenteritis and colitis, unspecified Plan: Ongoing symptoms, continue supportive care. May consider GI evaluation if little improvement. (3) HTN (hypertension) ICD Codes: I10 - Essential (primary) hypertension Plan: BP improved, now tolerating PO meds. Continue to monitor. (Shira Frank) Problem List: (1) End-stage renal disease (ESRD) ICD Codes: N18.6 - End stage renal disease Plan: The patient is on hemodialysis at the Transitional dialysis here at [facility] with Thursday, Thursday, Thursday dialysis. Continue MWF HD here. Of note, the patient is also doing peritoneal dialysis training. She has no signs of any peritonitis at this point and it appears that her symptoms are secondary to p.o. intake possibly from steak tips , which she had cooked at home. Will send peritoneal dialysis fluid cell count and culture. Continue to closely monitor at this time. Seen during hemodialysis may not be able to complete treatment with N/V/ diarrhea. Hypercalcemia not on replacement Labs ordered for AM Labs pending for today. Patient seen and examined, agree with above. PD fluid count is pending. (2) Gastroenteritis ICD Codes: K52.9 - Noninfective gastroenteritis and colitis, unspecified Plan: Ongoing symptoms, continue supportive care. May consider GI evaluation if little improvement. (3) HTN (hypertension) ICD Codes: I10 - Essential (primary) hypertension Plan: BP improved, now tolerating PO meds. Continue to monitor. (Adebayo Balderas MD) Shira Frank April 05, 2018 10:35 Adebayo Balderas MD April 05, 2018 19:39
[2018-04-05 11:41] LABS: BASOPHIL # 0.1 TH/MM3 (0-0.2); BASOPHIL % 0.6 % (0.0-2.0); EOSINOPHIL # 0.1 TH/MM3 (0-0.4); EOSINOPHIL % 0.5 % (0.0-4.0); HEMATOCRIT 35.9 % (35.0-46.0); HEMOGLOBIN 11.7 GM/DL (11.6-15.3); LYMPH % 10.7 % (9.0-44.0); LYMPHOCYTE # 1.2 TH/MM3 (1.0-4.8); MEAN CELL VOLUME 84.3 FL (80.0-100.0); MEAN CORPUSCULAR HEMOGLOBIN 27.4 PG (27.0-34.0); MEAN CORPUSCULAR HGB CONC 32.5 % (32.0-36.0); MEAN PLATELET VOLUME 8.7 FL (7.0-11.0); MONO % 6.5 % (0.0-8.0); MONOCYTE # 0.7 TH/MM3 (0-0.9); NEUT % 81.7 % (16.0-70.0); PLATELET COUNT 331 TH/MM3 (150-450); RED BLOOD COUNT 4.26 MIL/MM3 (4.00-5.30); RED CELL DISTRIBUTION WIDTH 16.5 % (11.6-17.2)
[2018-04-05] MEDS: GENTAMICIN SULFATE 20 MG/2 ML VIAL OTHER PRN (12:11)
[2018-04-05 12:16] LABS: ALBUMIN 3.4 GM/DL (3.4-5.0); ALKALINE PHOSPHATASE 132 U/L (45-117); ALT (GPT) 16 U/L (10-53); AST (GOT) 11 U/L (15-37); BICARBONATE 34.8 MEQ/L (21.0-32.0); BLOOD UREA NITROGEN 33 MG/DL (7-18); CALCIUM 9.6 MG/DL (8.5-10.1); CHLORIDE 94 MEQ/L (98-107); CREATININE 5.09 MG/DL (0.50-1.00); GLOMERULAR FILTRATION RATE 9 ML/MIN (>89); GLUCOSE,RANDOM 264 MG/DL (74-106); MAGNESIUM 2.5 MG/DL (1.5-2.5); PHOSPHORUS 2.5 MG/DL (2.5-4.9); SODIUM (NA) 137 MEQ/L (136-145); TOTAL BILIRUBIN ADULT 0.5 MG/DL (0.2-1.0); TOTAL PROTEIN 7.1 GM/DL (6.4-8.2)
[2018-04-05] MEDS ORDERED: POTASSIUM CHLORIDE 20 MEQ CONTROLLED RELEASE TAB PO ONE (12:45)
[2018-04-05] MEDS: CARVEDILOL 12.5 MG TAB PO SCH ×2 (13:10→20:50)
[2018-04-05] MEDS: PROCHLORPERAZINE INJ 10 MG/2 ML VIAL IV PUSH PRN ×2 (13:10→20:50)
[2018-04-05] MEDS: HEPARIN SODIUM - SQ 10,000 UNITS/ML VIAL SQ SCH ×2 (13:10→20:49)
[2018-04-05] MEDS: SODIUM CHLORIDE 0.9% FLUSH 10 ML FLUSH IV FLUSH SCH ×2 (13:16→20:50)
--- NOTE | 2018-04-05 15:40 | PD.CONS ---
HPI History of Present Illness This is a 52 year old female with ESRD on HD, CAD who presented with n/v, diarrhea, and blood in stool. Onset Jae night. She is also c/o reflux. She denies sick contacts, abd pain, change in diet or meds, recent abx use. Never had colonoscopy or EGD. C diff is negative. (Katty Lopez) PFSH Past Medical History PMH: HTN, COPD, Hyperlipidemia, CAD and ESRD on HD M/W/F Past Surgical History PAST SURGICAL HISTORY: Cardiac Stent, Appendectomy, Cholecystectomy (Katty Lopez) Coded Allergies: cephalexin (Verified Allergy, Severe, 04/03/18) Family History PAST FAMILY HISTORY: Reviewed. No h/o DM or CAD Social History PAST SOCIAL HISTORY: Negative for alcohol, tobacco or drugs. (Katty Lopez) Review of Systems Constitutional: COMPLAINS OF: Fatigue, DENIES: Fever Endocrine: DENIES: Polydipsia Eyes: DENIES: Blurred vision Ears, nose, mouth, throat: DENIES: Hearing loss Respiratory: DENIES: Cough Cardiovascular: DENIES: Chest pain Gastrointestinal: COMPLAINS OF: Bloody stools, Diarrhea, Nausea, Vomiting, DENIES: Abdominal pain, Black stools Genitourinary: DENIES: Urinary incontinence Musculoskeletal: DENIES: Muscle aches Integumentary: DENIES: Abnormal pigmentation Hematologic/lymphatic: DENIES: Bruising Immunologic/allergic: DENIES: Eczema Neurologic: DENIES: Headache Psychiatric: DENIES: Confusion (Katty Lopez) GI Exam Vitals I&O Vital Signs Date Time Temp Pulse Resp B/P (MAP) Pulse Ox O2 Delivery O2 Flow Rate FiO2 04/05/18 13:20 98.0 55 16 149/68 (95) 97 04/05/18 12:45 Room Air 04/05/18 12:00 85 04/05/18 08:09 97.9 76 18 136/71 (92) 96 04/05/18 08:00 82 04/05/18 04:00 Room Air 04/05/18 03:54 77 04/05/18 00:00 98.1 79 16 153/72 (99) 95 04/04/18 23:55 75 04/04/18 20:01 82 04/04/18 20:00 98.1 87 17 169/82 (111) 94 04/04/18 19:54 Room Air 04/04/18 16:35 83 04/04/18 16:00 98.9 74 20 152/70 (97) 97 I/O 04/04/18 04/04/18 04/04/18 04/05/18 04/05/18 04/05/18 07:00 15:00 23:00 07:00 15:00 23:00 Intake Total 480 ml 480 ml 400 ml Output Total 3000 ml Balance 480 ml 480 ml 400 ml -3000 ml Intake Oral 480 ml 480 ml 400 ml Hemodialysis 3000 ml # Voids 3 1 12 # Bowel Movements 0 10 Laboratory Test 04/05/18 10:00 White Blood Count 11.0 TH/MM3 Red Blood Count 4.26 MIL/MM3 Hemoglobin 11.7 GM/DL Hematocrit 35.9 % Mean Corpuscular Volume 84.3 FL Mean Corpuscular Hemoglobin 27.4 PG Mean Corpuscular Hemoglobin Concent 32.5 % Red Cell Distribution Width 16.5 % Platelet Count 331 TH/MM3 Mean Platelet Volume 8.7 FL Neutrophils (%) (Auto) 81.7 % Lymphocytes (%) (Auto) 10.7 % Monocytes (%) (Auto) 6.5 % Eosinophils (%) (Auto) 0.5 % Basophils (%) (Auto) 0.6 % Neutrophils # (Auto) 9.0 TH/MM3 Lymphocytes # (Auto) 1.2 TH/MM3 Monocytes # (Auto) 0.7 TH/MM3 Eosinophils # (Auto) 0.1 TH/MM3 Basophils # (Auto) 0.1 TH/MM3 CBC Comment DIFF FINAL Differential Comment Blood Urea Nitrogen 33 MG/DL Creatinine 5.09 MG/DL Random Glucose 264 MG/DL Total Protein 7.1 GM/DL Albumin 3.4 GM/DL Calcium Level 9.6 MG/DL Phosphorus Level 2.5 MG/DL Magnesium Level 2.5 MG/DL Alkaline Phosphatase 132 U/L Aspartate Amino Transf (AST/SGOT) 11 U/L Alanine Aminotransferase (ALT/SGPT) 16 U/L Total Bilirubin 0.5 MG/DL Sodium Level 137 MEQ/L Potassium Level 2.9 MEQ/L Chloride Level 94 MEQ/L Carbon Dioxide Level 34.8 MEQ/L Anion Gap 8 MEQ/L Estimat Glomerular Filtration Rate 9 ML/MIN Physical Examination HEENT: PERRL; normocephalic; atraumatic; no jaundice. CHEST: CTA CARDIAC: RRR ABDOMEN: Soft, nondistended, nontender; no hepatosplenomegaly; bowel sounds are present in all four quadrants. +PD cath no redness or purulence seen EXTREMITIES: No clubbing, cyanosis, or edema. SKIN: Normal; no rash; no jaundice. [place]TER: No focal deficits; alert and oriented times three. (Katty Lopez) Assessment and Plan Plan ASSESSMENT - n/v, diarrhea, blood in stool - unk etiology. c diff is neg. never had EGD or colonoscopy. stool studies are pending. HH WNL. peritoneal fluid cx pending. WBC was elevatd yesterday but today WNL -ESRD on HD - now with PD cath, transitioning to PD PLAN - EGD and colonoscopy - clear today - obtain consent - NPO after MN - golytely - await stool studies - consider CT - further recs to follow pt seen by myself and Dr Mccarthy and this note is on his behalf (Katty Lopez) Physician Comments Patient seen and examined Agree with above Continue with current supportive care Monitor labs EGD with colonoscopy tomorrow (Joselo Mccarthy MD) Katty Lopez April 05, 2018 15:40 Joselo Mccarthy MD April 05, 2018 22:17
--- NOTE | 2018-04-05 15:41 | HHI.PR ---
Subjective Remarks Seen after HD Patient says multiple times per hour including during the night. Less nausea vomiting however not able to eat anything. Says diarrhea is still bloody. No fever or chills. Some diffuse abdominal pain. C. difficile is negative. Other stool studies are pending Objective Vitals Vital Signs Date Time Temp Pulse Resp B/P (MAP) Pulse Ox O2 Delivery O2 Flow Rate FiO2 04/05/18 13:20 98.0 55 16 149/68 (95) 97 04/05/18 12:45 Room Air 04/05/18 12:00 85 04/05/18 08:09 97.9 76 18 136/71 (92) 96 04/05/18 08:00 82 04/05/18 04:00 Room Air 04/05/18 03:54 77 04/05/18 00:00 98.1 79 16 153/72 (99) 95 04/04/18 23:55 75 04/04/18 20:01 82 04/04/18 20:00 98.1 87 17 169/82 (111) 94 04/04/18 19:54 Room Air 04/04/18 16:35 83 04/04/18 16:00 98.9 74 20 152/70 (97) 97 I/O 04/04/18 04/04/18 04/04/18 04/05/18 04/05/18 04/05/18 07:00 15:00 23:00 07:00 15:00 23:00 Intake Total 480 ml 480 ml 400 ml Output Total 3000 ml Balance 480 ml 480 ml 400 ml -3000 ml Intake Oral 480 ml 480 ml 400 ml Hemodialysis 3000 ml # Voids 3 1 12 # Bowel Movements 0 10 Result Diagram: 04/05/18 1000 04/05/18 1000 Objective Remarks GENERAL: Middle-aged white female in mild distress, sitting at the edge of bed w / retching. HEENT: PERRLA, EOMI. No scleral icterus or conjunctival pallor. No lid lag or facial droop. CARDIOVASCULAR: Regular rate and rhythm. No obvious murmurs to auscultation. No chest tenderness to palpation. RESPIRATORY: No obvious rhonchi or wheezing. Clear to auscultation. Breath sounds equal bilaterally. GASTROINTESTINAL: Abdomen soft, diffuse mild tenderness, nondistended. BS normal. MUSCULOSKELETAL: Extremities without clubbing, cyanosis, or edema. No obvious deformities. NEUROLOGICAL: Awake, alert and oriented x4. No focal neurologic deficits. Moving both upper and lower extremities spontaneously. A/P Problem List: (1) Gastroenteritis ICD Code: K52.9 - Noninfective gastroenteritis and colitis, unspecified (2) Intractable nausea and vomiting ICD Code: R11.2 - Nausea with vomiting, unspecified (3) ESRD on hemodialysis ICD Code: N18.6 - End stage renal disease; Z99.2 - Dependence on renal dialysis (4) HTN (hypertension) ICD Code: I10 - Essential (primary) hypertension Assessment and Plan Gastroenteritis: acute onset of nausea/vomiting and diarrhea, send stool cultures, C diff is negative. Continue supportive treatment w/ analgesics/ antiemetics, received Zofran minimal improvement added reglan. Add phenergan as patient with persistent nausea and vomiting Consult GI patient with bloody diarrhea Intractable Nausea/Vomiting: secondary to above, continue w/ analgesics/ antiemetics as needed. IVF-caution w/ ESRD. received Zofran minimal improvement added reglan. Add phenergan as patient with persistent nausea and vomiting Hypokalemia. Secondary to intractable nausea and vomiting, diarrhea. Replace potassium. Monitor and replace lites as needed. We will also check magnesium. ESRD on HD: M/W/F, follows w/ Dr. Balderas, will consult to resume HD as scheduled. HTN: Uncontrolled. Likely compounded by acute nausea/vomiting, BP 218/98, HR 92 on arrival, antihypertensives as needed for BP >180 DVT Prophylaxis: Heparin sq CM consulted for DC planning as needed DC plan: pending improvement and clearance from consultants. Problem Qualifiers (1) Intractable nausea and vomiting: Qualified Codes: R11.2 - Nausea with vomiting, unspecified Mena Álvarez MD April 05, 2018 15:41
[2018-04-05] MEDS ORDERED: PEG (High)/E-LYTE SOLN 4000 ML BTL PO ONE (15:45)
[2018-04-05] MEDS: FAMOTIDINE 20 MG TAB PO SCH (16:57)
[2018-04-05 20:48] LABS: PERITONEAL EOS 27 %; PERITONEAL LYMPHS 33 %; PERITONEAL POLYS(SEGS) 40 %
[2018-04-05 20:58] LABS: PERITONEAL RBC 11 /MM3 (0-0)
[2018-04-06] VITALS: BP 152/108; PULSE 68; PULSE 83; RESP 16; TEMP 98.4; O2SAT 94
[2018-04-06] MEDS ORDERED: LACTATED RINGER'S 1000 ML IV PRN (02:15)
[2018-04-06] MEDS ORDERED: SODIUM CHLORID 0.9% 500 ML IV PRN (02:15)
[2018-04-06] MEDS ORDERED: POVIDONE IODINE 5% (ANTISEPSIS KIT) 4 APPLICATIONS EACH NARE PRN (02:15)
[2018-04-06] MEDS ORDERED: CHLORHEXIDINE GLUCONATE 2 % 1 PACK (2 CLOTHS) TOPICAL PRN (02:15)
[2018-04-06 04:00] VITALS: BP 154/84; PULSE 75; PULSE 79; RESP 19; TEMP 97.8; O2SAT 97
[2018-04-06] MEDS: hydrALAZINE HCL 100 MG TAB PO SCH ×3 (05:04→22:00)
[2018-04-06] MEDS: LEVOTHYROXINE SODIUM 50 MCG TAB PO SCH (05:04)
[2018-04-06] MEDS: PROCHLORPERAZINE INJ 10 MG/2 ML VIAL IV PUSH PRN ×2 (07:19→11:57)
[2018-04-06 08:00] VITALS: BP 192/93; PULSE 76; PULSE 86; RESP 20; TEMP 97.8; O2SAT 97
[2018-04-06] MEDS: INSULIN ASPART SUPPLEMENTAL SCALE SQ SCH ×4 (08:00→19:44)
[2018-04-06] MEDS: METOCLOPRAMIDE HCL 10 MG/2 ML VIAL IV PUSH PRN (08:48)
[2018-04-06] MEDS: HEPARIN SODIUM - SQ 10,000 UNITS/ML VIAL SQ SCH ×2 (09:00→19:43)
[2018-04-06] MEDS: FAMOTIDINE 20 MG TAB PO SCH (09:00)
[2018-04-06] MEDS: DOCUSATE SODIUM 50 MG/SENNA 8.6 MG TAB PO SCH ×2 (09:00→19:44)
[2018-04-06 09:03] LABS: AUTOMATED NEUTROPHIL # 7.8 TH/MM3 (1.8-7.7); BASOPHIL # 0.1 TH/MM3 (0-0.2); BASOPHIL % 0.6 % (0.0-2.0); EOSINOPHIL # 0.1 TH/MM3 (0-0.4); HEMATOCRIT 35.7 % (35.0-46.0); HEMOGLOBIN 11.9 GM/DL (11.6-15.3); LYMPH % 12.7 % (9.0-44.0); LYMPHOCYTE # 1.3 TH/MM3 (1.0-4.8); MEAN CELL VOLUME 83.1 FL (80.0-100.0); MEAN CORPUSCULAR HEMOGLOBIN 27.6 PG (27.0-34.0); MEAN CORPUSCULAR HGB CONC 33.2 % (32.0-36.0); MEAN PLATELET VOLUME 8.4 FL (7.0-11.0); MONO % 9.5 % (0.0-8.0); NEUT % 76.2 % (16.0-70.0); PLATELET COUNT 292 TH/MM3 (150-450); WHITE BLOOD COUNT 10.3 TH/MM3 (4.0-11.0)
[2018-04-06] MEDS ORDERED: ENALAPRILAT 1.25 MG/ML VIAL IV PUSH PRN (09:45)
[2018-04-06 09:46] LABS: BICARBONATE 27.7 MEQ/L (21.0-32.0); CALCIUM 10.4 MG/DL (8.5-10.1); CREATININE 5.6 MG/DL (0.50-1.00); MAGNESIUM 2.4 MG/DL (1.5-2.5)
--- NOTE | 2018-04-06 09:49 | HHI.NPPN ---
Subjective Complaints: Abdominal Pain Renal Failure: End Stage Renal Disease History of Present Illness The patient is on the transitional dialysis program here at [facility] and receives her dialysis on Mondays, Wednesdays and Fridays. She is followed up as an outpatient with Dr. Balderas. The patient has been doing training with peritoneal dialysis and has a peritoneal dialysis catheter in place. She has done 2 exchanges with 1000 mL and did 1 exchange previously on . On Thursday, she came for her regular dialysis session. She was feeling somewhat tired and, at home, cooked dinner with steak tips and rice. Afterwards, she began to have symptoms of nausea and vomiting as well as diarrhea. She camehere to the emergency room with ongoing nausea and vomiting and symptoms of bloody diarrhea. She also presented with hypertension with a systolic blood pressure of 218. She was admitted with the primary team. The patient was assessed with gastroenteritis and was given supportive treatment with Zofran initially. Her blood pressure medications were resumed and her blood pressure has improved this afternoon. The last reading was a systolic blood pressure of 110s. At this time, the patient is resting in bed comfortably. Her stool cultures have been negative to date. She reports she is feeling much better and feels like she could likely go home soon. Given her ESRD and hypertension , nephrology was consulted for further evaluation Additional Remarks Continues to have very frequent loose stools, abdominal tenderness, and nausea. Plan for EGD and colonoscopy today. (Shira Frank) Review of Systems Respiratory Respiratory Remarks Denies SOB (Shira Frank) Gastrointestinal Gastrointestinal: Abdominal Pain, Nausea & Vomiting, Diarrhea (Shira Frank) Objective Data Data Vital Signs Date Time Temp Pulse Resp B/P (MAP) Pulse Ox O2 Delivery O2 Flow Rate FiO2 04/06/18 08:00 97.8 86 20 192/93 (126) 97 04/06/18 05:26 Room Air 04/06/18 04:00 75 04/06/18 04:00 97.8 79 19 154/84 (107) 97 04/06/18 00:00 68 04/06/18 00:00 98.4 83 16 152/108 (123) 94 04/05/18 21:27 Room Air 04/05/18 20:00 98.6 72 17 155/67 (96) 96 5/21/18 20:00 82 04/05/18 18:18 Room Air 04/05/18 17:42 97 21 04/05/18 16:09 98.5 80 18 144/74 (97) 97 04/05/18 16:00 82 04/05/18 13:20 98.0 55 16 149/68 (95) 97 04/05/18 12:45 Room Air 04/05/18 12:00 85 (Shira Frank) -: 04/06/18 0822 04/05/18 1000 Microbiology 04/05/18 Gram Stain - Final, Resulted 04/05/18 Body Fluid Culture, Resulted Pending 04/05/18 Cryptosporidium Exam, Resulted Pending 04/05/18 Stool Pus (TREVOR) - Final, Resulted NO WBC'S SEEN 04/05/18 Giardia Antigen (TREVOR), Resulted Pending 04/05/18 , Received Pending (Shira Frank) Physical Exam General Appearance: No Acute Distress (Shira Frank) Eyes Eye Exam: Pupils Equal (Shira Frank) Throat Throat Exam: Oral Mucosa [place] & Moist (Shira Frank) Neck Neck Exam: Neck Supple (Shira Frank) Pulmonary Resp Exam: Clear Bilaterally (Shira Frank) Cardiology CV Exam: Regular, Normal Sinus Rhythm (Shira Frank) Gastrointestinal/Abdomen GI Exam: Soft, Non-Tender (Shira Frank) Integumentary Skin Exam: Warm, Dry, Intact (Shira Frank) Extremeties Extremities Exam: No Edema (Shira Frank) Neurologic Neuro Exam: Alert, Awake, Oriented, Speech Clear, Moving All Extremities (Shira Frank) Psychiatric Psych Exam: Appropriate Responses (Shira Frank) Assessment/Plan Problem List: (1) End-stage renal disease (ESRD) ICD Codes: N18.6 - End stage renal disease Plan: The patient is on hemodialysis at the Transitional dialysis here at [facility] with Thursday, Thursday, Thursday dialysis. Continue MWF HD here. Of note, the patient is also doing peritoneal dialysis training. She has no signs of any peritonitis at this point and it appears that her symptoms are secondary to p.o. intake possibly from steak tips , which she had cooked at home. Peritoneal dialysis fluid WBC at 181. Ciprofloxacin added and vancomycin IP, will follow cell count. Continue to closely monitor at this time. Hemodialysis yesterday with UF of 3 liters. Plan for EGD and colonscopy today. (2) Gastroenteritis ICD Codes: K52.9 - Noninfective gastroenteritis and colitis, unspecified Plan: Ongoing symptoms, continue supportive care. EGD and colonscopy today (3) HTN (hypertension) ICD Codes: I10 - Essential (primary) hypertension Plan: Continue to monitor. PRN added IV as patient is NPO (Shira Frank) Problem List: (1) End-stage renal disease (ESRD) ICD Codes: N18.6 - End stage renal disease Plan: The patient is on hemodialysis at the Transitional dialysis here at [facility] with Thursday, Thursday, Thursday dialysis. Continue MWF HD here. Of note, the patient is also doing peritoneal dialysis training. She has no signs of any peritonitis at this point and it appears that her symptoms are secondary to p.o. intake possibly from steak tips , which she had cooked at home. Peritoneal dialysis fluid WBC at 181. Ciprofloxacin added and vancomycin IP, will follow cell count. Continue to closely monitor at this time. Hemodialysis yesterday with UF of 3 liters. Plan for EGD and colonscopy today. Patient seen and examined, agree with above. PD fluid culture negative so far. (2) Gastroenteritis ICD Codes: K52.9 - Noninfective gastroenteritis and colitis, unspecified Plan: Ongoing symptoms, continue supportive care. EGD and colonscopy today (3) HTN (hypertension) ICD Codes: I10 - Essential (primary) hypertension Plan: Continue to monitor. PRN added IV as patient is NPO (Adebayo Balderas MD) Shira Frank April 06, 2018 09:49 Adebayo Balderas MD April 08, 2018 00:03
--- NOTE | 2018-04-06 11:25 | HHI.PR ---
Subjective Remarks In bed says she feels very weak. With persistent diarrhea, nonbloody at this time. Still with nausea and vomiting. No fever or chills. Objective Vitals Vital Signs Date Time Temp Pulse Resp B/P (MAP) Pulse Ox O2 Delivery O2 Flow Rate FiO2 04/06/18 08:00 97.8 86 20 192/93 (126) 97 04/06/18 05:26 Room Air 04/06/18 04:00 75 04/06/18 04:00 97.8 79 19 154/84 (107) 97 04/06/18 00:00 68 04/06/18 00:00 98.4 83 16 152/108 (123) 94 04/05/18 21:27 Room Air 04/05/18 20:00 98.6 72 17 155/67 (96) 96 04/05/18 20:00 82 04/05/18 18:18 Room Air 04/05/18 17:42 97 21 04/05/18 16:09 98.5 80 18 144/74 (97) 97 04/05/18 16:00 82 04/05/18 13:20 98.0 55 16 149/68 (95) 97 04/05/18 12:45 Room Air 04/05/18 12:00 85 I/O 04/05/18 04/05/18 04/05/18 04/06/18 04/06/18 04/06/18 07:00 15:00 23:00 07:00 15:00 23:00 Intake Total 400 ml 340 ml 0 ml Output Total 3000 ml 0 ml Balance 400 ml -3000 ml 340 ml 0 ml Intake Oral 400 ml 340 ml 0 ml Output Urine Total 0 ml Hemodialysis 3000 ml # Voids 12 3 # Bowel Movements 10 0 11 Result Diagram: 04/06/1882104/06/1822 Objective Remarks GENERAL: Middle-aged white female in mild distress, sitting at the edge of bed w / retching. HEENT: PERRLA, EOMI. No scleral icterus or conjunctival pallor. No lid lag or facial droop. CARDIOVASCULAR: Regular rate and rhythm. No obvious murmurs to auscultation. No chest tenderness to palpation. RESPIRATORY: No obvious rhonchi or wheezing. Clear to auscultation. Breath sounds equal bilaterally. GASTROINTESTINAL: Abdomen soft, diffuse mild tenderness, nondistended. BS normal. MUSCULOSKELETAL: Extremities without clubbing, cyanosis, or edema. No obvious deformities. NEUROLOGICAL: Awake, alert and oriented x4. No focal neurologic deficits. Moving both upper and lower extremities spontaneously. A/P Problem List: (1) Gastroenteritis ICD Code: K52.9 - Noninfective gastroenteritis and colitis, unspecified (2) Intractable nausea and vomiting ICD Code: R11.2 - Nausea with vomiting, unspecified (3) ESRD on hemodialysis ICD Code: N18.6 - End stage renal disease; Z99.2 - Dependence on renal dialysis (4) HTN (hypertension) ICD Code: I10 - Essential (primary) hypertension Assessment and Plan Gastroenteritis: acute onset of nausea/vomiting and diarrhea, send stool cultures, C diff is negative. Continue supportive treatment w/ analgesics/ antiemetics, received Zofran minimal improvement added reglan. Add phenergan as patient with persistent nausea and vomiting Consult GI patient with bloody diarrhea Plan for EGD/Colonoscopy 04/06 Intractable Nausea/Vomiting: secondary to above, continue w/ analgesics/ antiemetics as needed. IVF-caution w/ ESRD. received Zofran minimal improvement added reglan. Add phenergan as patient with persistent nausea and vomiting Hypokalemia. Secondary to intractable nausea and vomiting, diarrhea. Replace potassium. Monitor and replace lites as needed. We will also check magnesium. ESRD on HD: M/W/F, follows w/ Dr. Balderas, will consult to resume HD as scheduled. HTN: Uncontrolled. Likely compounded by acute nausea/vomiting, BP 218/98, HR 92 on arrival, antihypertensives as needed for BP >180. DVT Prophylaxis: Heparin sq CM consulted for DC planning as needed DC plan: pending improvement and clearance from consultants. Plan for EGD/colonoscopy Problem Qualifiers (1) Intractable nausea and vomiting: Qualified Codes: R11.2 - Nausea with vomiting, unspecified Mena Álvarez MD April 06, 2018 11:25
[2018-04-06 12:00] VITALS: BP 177/88; PULSE 78; RESP 20; TEMP 98.3; O2SAT 97
[2018-04-06] MEDS ORDERED: PROPOFOL 200 MG/20 ML AMP IV ONE (12:00)
[2018-04-06] MEDS ORDERED: VANCOMYCIN HCL 1000 MG VIAL I-PERITON SCH (12:00)
[2018-04-06] MEDS ORDERED: LIDOCAINE HCL 1% PF 5 ML SYRINGE OTHER ONE (12:00)
[2018-04-06] MEDS ORDERED: PHENYLEPH/NS 1000 MCG/10 ML SYR IV ONE (12:00)
[2018-04-06 16:00] VITALS: BP 146/74; PULSE 89; RESP 20; TEMP 98.4; O2SAT 98
--- NOTE | 2018-04-06 16:58 | PD.PROCEDR ---
GI Procedure PROCEDURE PERFORMED EGD with biopsy followed by colonoscopy with snare polypectomy and biopsy INDICATION FOR PROCEDURE Nausea vomiting, diarrhea, bloody stool PROCEDURE: The procedure, risks and benefits were discussed with Patient/POA and informed consent was obtained. Anesthesia sedated Patient with Diprivan. Patient was placed in the left lateral decubitus position. EGD: The Pentax videoscope was introduced through the oropharynx and advanced to the second portion of the duodenum under direct visualization. Retroflexion was performed in the stomach. FINDINGS: The esophagus there was distal esophageal mucosal erythema with friability suggestive of esophagitis this was biopsied The stomach there was patchy erythema in the antrum but no ulcerations no erosions no blood or bleeding this was biopsied the rest of the stomach was unremarkable The duodenum this was normal Colonoscopy: The Pentax videoscope was introduced through the rectum and advanced to cecum where the ileocecal valve and appendiceal orifice were identified. Retroflexion was performed in the rectum. Colonic prep was fair FINDINGS: Colonic withdrawal time greater than 6 minutes. As the scope was slowly withdrawn colonic mucosa was carefully inspected patient was noted to have a moderate sized polyp in the transverse colon this was excised using cold snare technique there was a second large semi-pedunculated polyp in the rectum this was excised using hot snare technique both polyps were retrieved for further evaluation patient was noted to have significant erythema with friability and ulceration of the sigmoid region this may represent ischemic changes this was biopsied colonic examination otherwise unremarkable so is retroflexion and rectal examination ESTIMATED BLOOD LOSS: None SPECIMENS REMOVED: Esophageal, gastric, colon biopsies COMPLICATIONS: None IMPRESSION: Esophagitis Gastritis Colon polyps Colitis PLAN: Await biopsies Recommend Protonix 40 mg daily Reflux precautions Recommend colonoscopy in 3 months Further recommendations she will depend on hospital course Joselo Mccarthy MD April 06, 2018 16:58
[2018-04-06] MEDS: PANTOPRAZOLE SOD 40 MG DELAYED RELEASE TAB PO SCH (17:53)
[2018-04-06] MEDS: CARVEDILOL 12.5 MG TAB PO SCH ×3 (17:53→19:54)
[2018-04-06] MEDS: CIPROFLOXACIN 250 MG TAB PO SCH (17:53)
[2018-04-06] MEDS: SODIUM CHLORIDE 0.9% FLUSH 10 ML FLUSH IV FLUSH SCH ×2 (17:56→19:44)
[2018-04-06 20:00] VITALS: BP 96/64; PULSE 78; RESP 20; TEMP 98.2; O2SAT 97
[2018-04-07] VITALS (9 sets, daily range): BP systolic 88–149; BP diastolic 62–74; PULSE 74–112; RESP 15–18; TEMP 97.6–98.6; O2SAT 96–99
[2018-04-07] MEDS: hydrALAZINE HCL 100 MG TAB PO SCH ×3 (05:23→21:48)
[2018-04-07] MEDS: LEVOTHYROXINE SODIUM 50 MCG TAB PO SCH (05:24)
[2018-04-07 07:45] LABS: HEMATOCRIT 35.9 % (35.0-46.0); HEMOGLOBIN 11.8 GM/DL (11.6-15.3); MEAN CELL VOLUME 83.8 FL (80.0-100.0); MEAN CORPUSCULAR HEMOGLOBIN 27.5 PG (27.0-34.0); MEAN CORPUSCULAR HGB CONC 32.8 % (32.0-36.0); MEAN PLATELET VOLUME 8.7 FL (7.0-11.0); PLATELET COUNT 255 TH/MM3 (150-450); RED BLOOD COUNT 4.29 MIL/MM3 (4.00-5.30); RED CELL DISTRIBUTION WIDTH 16.7 % (11.6-17.2); WHITE BLOOD COUNT 10.6 TH/MM3 (4.0-11.0)
[2018-04-07 08:14] LABS: ALT (GPT) 14 U/L (10-53); AST (GOT) 12 U/L (15-37); BICARBONATE 24.4 MEQ/L (21.0-32.0); BLOOD UREA NITROGEN 31 MG/DL (7-18); CALCIUM 10.4 MG/DL (8.5-10.1); CHLORIDE 94 MEQ/L (98-107); CREATININE 6.04 MG/DL (0.50-1.00); GLOMERULAR FILTRATION RATE 7 ML/MIN (>89); GLUCOSE,RANDOM 253 MG/DL (74-106); SODIUM (NA) 134 MEQ/L (136-145)
[2018-04-07 08:17] LABS: ALKALINE PHOSPHATASE 114 U/L (45-117); TOTAL BILIRUBIN ADULT 0.5 MG/DL (0.2-1.0); TOTAL PROTEIN 6.6 GM/DL (6.4-8.2)
[2018-04-07] MEDS: DOCUSATE SODIUM 50 MG/SENNA 8.6 MG TAB PO SCH ×2 (09:00→21:00)
--- NOTE | 2018-04-07 09:12 | HHI.NPPN ---
Subjective Complaints: Abdominal Pain Renal Failure: End Stage Renal Disease History of Present Illness The patient is on the transitional dialysis program here at [facility] and receives her dialysis on Mondays, Wednesdays and Fridays. She is followed up as an outpatient with Dr. Balderas. The patient has been doing training with peritoneal dialysis and has a peritoneal dialysis catheter in place. She has done 2 exchanges with 1000 mL and did 1 exchange previously on . On Thursday, she came for her regular dialysis session. She was feeling somewhat tired and, at home, cooked dinner with steak tips and rice. Afterwards, she began to have symptoms of nausea and vomiting as well as diarrhea. She camehere to the emergency room with ongoing nausea and vomiting and symptoms of bloody diarrhea. She also presented with hypertension with a systolic blood pressure of 218. She was admitted with the primary team. The patient was assessed with gastroenteritis and was given supportive treatment with Zofran initially. Her blood pressure medications were resumed and her blood pressure has improved this afternoon. The last reading was a systolic blood pressure of 110s. At this time, the patient is resting in bed comfortably. Her stool cultures have been negative to date. She reports she is feeling much better and feels like she could likely go home soon. Given her ESRD and hypertension , nephrology was consulted for further evaluation Additional Remarks Seen during hemodialysis. Continues to complain of nausea and abdominal tenderness. (Shira Frank) Review of Systems Respiratory Respiratory Remarks Denies SOB (Shira Frank) Gastrointestinal Gastrointestinal: Abdominal Pain, Nausea & Vomiting, Diarrhea (Shira Frank) Objective Data Data Vital Signs Date Time Temp Pulse Resp B/P (MAP) Pulse Ox O2 Delivery O2 Flow Rate FiO2 04/07/18 04:00 98.3 92 17 96 04/07/18 00:00 98.1 74 16 126/70 (88) 98 04/06/18 22:05 Room Air 04/06/18 20:00 98.2 78 20 96/64 (75) 97 04/06/18 16:57 98.8 73 16 158/74 (102) 98 04/06/18 16:00 98.4 89 20 146/74 (98) 98 04/06/18 12:00 98.3 78 20 177/88 (117) 97 (Shira Frank) -: 04/07/18 0610 04/07/18 0610 Physical Exam General Appearance: No Acute Distress (Shira Frank) Eyes Eye Exam: Pupils Equal (Shira Frank) Throat Throat Exam: Oral Mucosa Bessie & Moist (Shira Frank) Neck Neck Exam: Neck Supple (Shira Frank) Pulmonary Resp Exam: Clear Bilaterally (Shira Frank) Cardiology CV Exam: Regular, Normal Sinus Rhythm (Shira Frank) Gastrointestinal/Abdomen GI Exam: Soft, Distended GI Remarks tender (Shira Frank) Integumentary Skin Exam: Warm, Dry, Intact (Shira Frank) Extremeties Extremities Exam: No Edema (Shira Frank) Neurologic Neuro Exam: Alert, Awake, Oriented, Speech Clear, Moving All Extremities (Shira Frank) Psychiatric Psych Exam: Appropriate Responses (Shira Frank) Assessment/Plan Problem List: (1) End-stage renal disease (ESRD) ICD Codes: N18.6 - End stage renal disease Plan: The patient is on hemodialysis at the Transitional dialysis here at [facility] with Thursday, Thursday, Thursday dialysis. Continue MWF HD here. Of note, the patient is also doing peritoneal dialysis training. She has no signs of any peritonitis at this point and it appears that her symptoms are secondary to p.o. intake possibly from steak tips , which she had cooked at home. Peritoneal dialysis fluid WBC at 181. With this will treat with Ciprofloxacin added and vancomycin IP, will follow cell count. Continue to closely monitor at this time. Seen during hemodialysis, 4 k bath Hypokalemia at 3.1 will provide extra replacement. Calcium level elevated will check vitamin d level and PTH Labs in AM (2) Gastroenteritis ICD Codes: K52.9 - Noninfective gastroenteritis and colitis, unspecified Plan: Ongoing symptoms, continue supportive care. EGD and colonscopy today (3) HTN (hypertension) ICD Codes: I10 - Essential (primary) hypertension Plan: Continue to monitor. PRN added IV as patient is NPO (Shira Frank) Problem List: (1) End-stage renal disease (ESRD) ICD Codes: N18.6 - End stage renal disease Plan: The patient is on hemodialysis at the Transitional dialysis here at [facility] with Thursday, Thursday, Thursday dialysis. Continue MWF HD here. Of note, the patient is also doing peritoneal dialysis training. She has no signs of any peritonitis at this point and it appears that her symptoms are secondary to p.o. intake possibly from steak tips , which she had cooked at home. Peritoneal dialysis fluid WBC at 181. With this will treat with Ciprofloxacin added and vancomycin IP, will follow cell count. Continue to closely monitor at this time. Seen during hemodialysis, 4 k bath Hypokalemia at 3.1 will provide extra replacement. Calcium level elevated will check vitamin d level and PTH Labs in AM. Patient seen and examined, agree with above. PD culture negative. Diarrhea is better. (2) Gastroenteritis ICD Codes: K52.9 - Noninfective gastroenteritis and colitis, unspecified Plan: Ongoing symptoms, continue supportive care. EGD and colonscopy today (3) HTN (hypertension) ICD Codes: I10 - Essential (primary) hypertension Plan: Continue to monitor. PRN added IV as patient is NPO (Adebayo Balderas MD) Shira Frank April 07, 2018 09:12 Adebayo Balderas MD April 08, 2018 00:13
[2018-04-07] MEDS: INSULIN ASPART SUPPLEMENTAL SCALE SQ SCH ×4 (12:00→21:47)
[2018-04-07] MEDS: CARVEDILOL 12.5 MG TAB PO SCH ×2 (12:03→21:00)
[2018-04-07] MEDS: CIPROFLOXACIN 250 MG TAB PO SCH (12:03)
[2018-04-07] MEDS: PANTOPRAZOLE SOD 40 MG DELAYED RELEASE TAB PO SCH (12:03)
[2018-04-07] MEDS: FAMOTIDINE 20 MG TAB PO SCH (12:04)
[2018-04-07] MEDS: SODIUM CHLORIDE 0.9% FLUSH 10 ML FLUSH IV FLUSH SCH ×2 (12:05→21:47)
[2018-04-07] MEDS: HEPARIN SODIUM - SQ 10,000 UNITS/ML VIAL SQ SCH ×2 (12:13→21:00)
--- NOTE | 2018-04-07 12:16 | HHI.PR ---
Subjective Remarks Still with persistent nausea. Less vomiting. Tolerates on any clears did not eat anything else. Denies fever or chills. Still with abdominal cramps thinks from persistent vomiting. Objective Vitals Vital Signs Date Time Temp Pulse Resp B/P (MAP) Pulse Ox O2 Delivery O2 Flow Rate FiO2 04/07/18 12:13 97 21 04/07/18 08:00 Room Air 04/07/18 08:00 98.1 91 15 149/70 (96) 96 146/67 (93) 04/07/18 04:00 98.3 92 17 96 04/07/18 00:00 98.1 74 16 126/70 (88) 98 04/06/18 22:05 Room Air 04/06/18 20:00 98.2 78 20 96/64 (75) 97 04/06/18 16:57 98.8 73 16 158/74 (102) 98 04/06/18 16:00 98.4 89 20 146/74 (98) 98 I/O 04/06/18 04/06/18 04/06/18 04/07/18 04/07/18 04/07/18 07:00 15:00 23:00 07:00 15:00 23:00 Intake Total 0 ml 100 ml 240 ml Output Total 2000 ml Balance 0 ml 100 ml 240 ml -2000 ml Intake Oral 0 ml 0 ml 240 ml Other 100 ml Hemodialysis 2000 ml # Voids 3 0 2 # Bowel Movements 11 5 Result Diagram: 04/07/18 0610 04/07/18 0610 Objective Remarks GENERAL: Middle-aged white female in mild distress, sitting at the edge of bed w / retching. HEENT: PERRLA, EOMI. No scleral icterus or conjunctival pallor. No lid lag or facial droop. CARDIOVASCULAR: Regular rate and rhythm. No obvious murmurs to auscultation. No chest tenderness to palpation. RESPIRATORY: No obvious rhonchi or wheezing. Clear to auscultation. Breath sounds equal bilaterally. GASTROINTESTINAL: Abdomen soft, diffuse mild tenderness, nondistended. BS normal. MUSCULOSKELETAL: Extremities without clubbing, cyanosis, or edema. No obvious deformities. NEUROLOGICAL: Awake, alert and oriented x4. No focal neurologic deficits. Moving both upper and lower extremities spontaneously. A/P Problem List: (1) Gastroenteritis ICD Code: K52.9 - Noninfective gastroenteritis and colitis, unspecified (2) Intractable nausea and vomiting ICD Code: R11.2 - Nausea with vomiting, unspecified (3) ESRD on hemodialysis ICD Code: N18.6 - End stage renal disease; Z99.2 - Dependence on renal dialysis (4) HTN (hypertension) ICD Code: I10 - Essential (primary) hypertension Assessment and Plan Gastroenteritis:acute onset of nausea/vomiting and diarrhea, send stool cultures , C diff is negative. Continue supportive treatment w/ analgesics/antiemetics, received Zofran minimal improvement added reglan. Add phenergan as patient with persistent nausea and vomiting Consult GI patient with bloody diarrhea Esophagitis, gastritis, colitis. S/P EGD/Colonoscopy 04/06 . Patient has : esophagitis, gastritis, colitis. Continue PPI. Biopsies are pending GI following. Add Carafate Intractable Nausea. Vomiting improved: secondary to above, continue w/ analgesics/antiemetics as needed. IVF-caution w/ ESRD. received Zofran minimal improvement added reglan. Add phenergan as patient with persistent nausea and vomiting Hypokalemia. Secondary to intractable nausea and vomiting, diarrhea. Replace potassium. Monitor and replace lites as needed. We will also check magnesium. ESRD on HD: M/W/F, follows w/ Dr. Balderas, will consult to resume HD as scheduled. HTN: Uncontrolled. Likely compounded by acute nausea/vomiting, BP 218/98, HR 92 on arrival, antihypertensives as needed for BP >180. DVT Prophylaxis: Heparin sq CM consulted for DC planning as needed DC plan: pending improvement and clearance from consultants. Plan for EGD/colonoscopy Problem Qualifiers (1) Intractable nausea and vomiting: Qualified Codes: R11.2 - Nausea with vomiting, unspecified Mena Álvarez MD April 07, 2018 12:16
--- NOTE | 2018-04-07 14:42 | HHI.GIFU ---
Subjective Remarks Pt resting in bed. c/o of abd pain. Denies vomiting, diarrhea today. (Katty Lopez) Objective Vitals I&O Vital Signs Date Time Temp Pulse Resp B/P (MAP) Pulse Ox O2 Delivery O2 Flow Rate FiO2 04/07/18 12:13 97 21 04/07/18 12:00 97.6 112 17 107/63 (78) 99 04/07/18 08:00 Room Air 04/07/18 08:00 98.1 91 15 149/70 (96) 96 146/67 (93) 04/07/18 04:00 98.3 92 17 96 04/07/18 00:00 98.1 74 16 126/70 (88) 98 04/06/18 22:05 Room Air 04/06/18 20:00 98.2 78 20 96/64 (75) 97 04/06/18 16:57 98.8 73 16 158/74 (102) 98 04/06/18 16:00 98.4 89 20 146/74 (98) 98 I/O 04/06/18 04/06/18 04/06/18 04/07/18 04/07/18 04/07/18 06:59 14:59 22:59 06:59 14:59 22:59 Intake Total 0 ml 100 ml 240 ml Output Total 2000 ml Balance 0 ml 100 ml 240 ml -2000 ml Intake Oral 0 ml 0 ml 240 ml Other 100 ml Hemodialysis 2000 ml # Voids 3 0 2 # Bowel Movements 11 5 Laboratory Laboratory Tests Test 04/07/18 06:10 White Blood Count 10.6 Red Blood Count 4.29 Hemoglobin 11.8 Hematocrit 35.9 Mean Corpuscular Volume 83.8 Mean Corpuscular Hemoglobin 27.5 Mean Corpuscular Hemoglobin Concent 32.8 Red Cell Distribution Width 16.7 Platelet Count 255 Mean Platelet Volume 8.7 Blood Urea Nitrogen 31 Creatinine 6.04 Random Glucose 253 Total Protein 6.6 Albumin 3.0 Calcium Level 10.4 Alkaline Phosphatase 114 Aspartate Amino Transf (AST/SGOT) 12 Alanine Aminotransferase (ALT/SGPT) 14 Total Bilirubin 0.5 Sodium Level 134 Potassium Level 3.1 Chloride Level 94 Carbon Dioxide Level 24.4 Anion Gap 16 Estimat Glomerular Filtration Rate 7 Date/Time Source Procedure Growth Status 04/05/18 17:30 Fluid Peritoneal Fluid Gram Stain - Final Resulted 04/05/18 17:30 Fluid Peritoneal Fluid Body Fluid Culture - Preliminary NO GROWTH IN 48 HOURS. Resulted 04/05/18 21:25 Stool Stool Cryptosporidium Exam Pending Resulted 04/05/18 21:25 Stool Stool Stool Pus (TREVOR) - Final NO WBC'S SEEN Resulted 04/05/18 21:25 Stool Stool Giardia Antigen (TREVOR) Pending Resulted Physical Exam HEENT: PERRL; normocephalic; atraumatic; no jaundice. CHEST: CTA CARDIAC: RRR ABDOMEN: Soft, mildly distended, diffuse TTP; no hepatosplenomegaly; bowel sounds are present in all four quadrants. EXTREMITIES: No clubbing, cyanosis, or edema. SKIN: Normal; no rash; no jaundice. 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 c diff is neg. never had EGD or colonoscopy. stool studies are pending. HH WNL. peritoneal fluid cx pending. WBC was elevatd yesterday but today WNL -ESRD on HD - now with PD cath, transitioning to PD 04/07/18 pt resting in bed, c/o abd pain. s/p EGD and colonoscopy with findings esophagitis, gastritis, colitis, colon polyps. bloody stool 2/2 ischemia? c diff neg, stool studies neg for enteric pathogens. no vomiting or diarrhea today PLAN -SAMI - await bx - colonoscopy in 3 months - supportive care pt seen by myself and Dr Mccarthy and this note is on his behalf (Katty Lopez) Physician Comments Patient seen and examined Agree with above Continue with current supportive care Monitor labs (Joselo Mccarthy MD) Katty Lopez April 07, 2018 14:42 Joselo Mccarthy MD April 07, 2018 20:30
[2018-04-07] MEDS: PROCHLORPERAZINE INJ 10 MG/2 ML VIAL IV PUSH PRN (16:49)
[2018-04-07] MEDS: SUCRALFATE 1 GM TAB PO SCH (18:45)
[2018-04-07] MEDS ORDERED: ZOLPIDEM TARTRATE 5 MG TAB PO ONE (20:00)
[2018-04-07] MEDS ORDERED: POTASSIUM CHLORIDE 20 MEQ CONTROLLED RELEASE TAB PO ONE (21:00)
[2018-04-08] VITALS: BP 158/74; PULSE 82; RESP 16; TEMP 98.2; O2SAT 95
[2018-04-08 04:00] VITALS: BP 114/62; PULSE 74; RESP 16; TEMP 97.8; O2SAT 96
[2018-04-08] MEDS: LEVOTHYROXINE SODIUM 50 MCG TAB PO SCH (05:17)
[2018-04-08] MEDS: hydrALAZINE HCL 100 MG TAB PO SCH ×3 (05:17→22:10)
[2018-04-08] MEDS: SUCRALFATE 1 GM TAB PO SCH ×2 (05:27→15:25)
[2018-04-08 06:56] LABS: AUTOMATED NEUTROPHIL # 5.5 TH/MM3 (1.8-7.7); BASOPHIL # 0.1 TH/MM3 (0-0.2); EOSINOPHIL # 0.1 TH/MM3 (0-0.4); EOSINOPHIL % 1.2 % (0.0-4.0); HEMATOCRIT 35.5 % (35.0-46.0); HEMOGLOBIN 11.9 GM/DL (11.6-15.3); LYMPH % 28.7 % (9.0-44.0); LYMPHOCYTE # 2.7 TH/MM3 (1.0-4.8); MEAN CELL VOLUME 83.6 FL (80.0-100.0); MEAN CORPUSCULAR HGB CONC 33.5 % (32.0-36.0); MEAN PLATELET VOLUME 8.8 FL (7.0-11.0); MONO % 11.2 % (0.0-8.0); MONOCYTE # 1.1 TH/MM3 (0-0.9); NEUT % 57.9 % (16.0-70.0); PLATELET COUNT 219 TH/MM3 (150-450); RED BLOOD COUNT 4.25 MIL/MM3 (4.00-5.30); RED CELL DISTRIBUTION WIDTH 16.5 % (11.6-17.2); WHITE BLOOD COUNT 9.5 TH/MM3 (4.0-11.0)
[2018-04-08 07:18] LABS: BICARBONATE 27.7 MEQ/L (21.0-32.0); CALCIUM 10.7 MG/DL (8.5-10.1); CREATININE 5.34 MG/DL (0.50-1.00); PHOSPHORUS 4.7 MG/DL (2.5-4.9)
[2018-04-08 08:00] VITALS: BP 142/64; PULSE 85; RESP 18; TEMP 98.2; O2SAT 97
--- NOTE | 2018-04-08 08:57 | HHI.PR ---
Subjective Remarks Did not have a bowel movement today, still with nausea no more vomiting. Potassium back to normal. However she was eating only clears. Will try to eat in the morning. However patient is not complaining of right lower abdominal pain nonradiating. Moderate to severe intermittent. No fever or chills overnight. Plan for CT abdomen. Objective Vitals Vital Signs Date Time Temp Pulse Resp B/P (MAP) Pulse Ox O2 Delivery O2 Flow Rate FiO2 04/08/18 04:00 97.8 74 16 114/62 (79) 96 04/08/18 00:00 98.2 82 16 158/74 (102) 95 04/07/18 22:30 142/74 (96) 04/07/18 20:45 Room Air 04/07/18 20:11 99 04/07/18 20:00 98.3 95 18 88/62 (71) 99 04/07/18 16:00 98.6 77 17 148/68 (94) 99 04/07/18 12:13 97 21 04/07/18 12:00 97.6 112 17 107/63 (78) 99 I/O 04/07/18 04/07/18 04/07/18 04/08/18 04/08/18 04/08/18 07:00 15:00 23:00 07:00 15:00 23:00 Intake Total 240 ml 840 ml 240 ml Output Total 2000 ml 400 ml Balance 240 ml -2000 ml 840 ml -160 ml Intake Oral 240 ml 840 ml 240 ml Output Urine Total 400 ml Hemodialysis 2000 ml # Voids 2 2 # Bowel Movements 0 Result Diagram: 04/08/1830 04/08/18 0530 Objective Remarks GENERAL: Middle-aged white female in mild distress, sitting at the edge of bed w / retching. HEENT: PERRLA, EOMI. No scleral icterus or conjunctival pallor. No lid lag or facial droop. CARDIOVASCULAR: Regular rate and rhythm. No obvious murmurs to auscultation. No chest tenderness to palpation. RESPIRATORY: No obvious rhonchi or wheezing. Clear to auscultation. Breath sounds equal bilaterally. GASTROINTESTINAL: Abdomen soft, diffuse mild tenderness, nondistended. BS normal. MUSCULOSKELETAL: Extremities without clubbing, cyanosis, or edema. No obvious deformities. NEUROLOGICAL: Awake, alert and oriented x4. No focal neurologic deficits. Moving both upper and lower extremities spontaneously. A/P Problem List: (1) Gastroenteritis ICD Code: K52.9 - Noninfective gastroenteritis and colitis, unspecified (2) Intractable nausea and vomiting ICD Code: R11.2 - Nausea with vomiting, unspecified (3) ESRD on hemodialysis ICD Code: N18.6 - End stage renal disease; Z99.2 - Dependence on renal dialysis (4) HTN (hypertension) ICD Code: I10 - Essential (primary) hypertension Assessment and Plan Gastroenteritis:acute onset of nausea/vomiting and diarrhea, send stool cultures , C diff is negative. Continue supportive treatment w/ analgesics/antiemetics, received Zofran minimal improvement added reglan. Add phenergan as patient with persistent nausea and vomiting Consult GI patient with bloody diarrhea Esophagitis, gastritis, colitis. S/P EGD/Colonoscopy 04/06 . Patient has : esophagitis, gastritis, colitis. Continue PPI. Biopsies are pending GI following. Add Carafate Intractable Nausea. Vomiting improved: secondary to above, continue w/ analgesics/antiemetics as needed. IVF-caution w/ ESRD. received Zofran minimal improvement added reglan. Add phenergan as patient with persistent nausea and vomiting Right lower quadrant abdominal pain. Plan for CT abdomen and pelvis with contrast Hypokalemia. Secondary to intractable nausea and vomiting, diarrhea. Replace potassium. Monitor and replace lites as needed. We will also check magnesium. ESRD on HD: M/W/F, follows w/ Dr. Balderas, will consult to resume HD as scheduled. HTN: Uncontrolled. Likely compounded by acute nausea/vomiting, BP 218/98, HR 92 on arrival, antihypertensives as needed for BP >180. DVT Prophylaxis: Heparin sq CM consulted for DC planning as needed DC plan: pending improvement and clearance from consultants. S/p EGD/colonoscopy With RLQ abd pain, plan for CT A/P Problem Qualifiers (1) Intractable nausea and vomiting: Qualified Codes: R11.2 - Nausea with vomiting, unspecified Mena Álvarez MD April 08, 2018 08:57
[2018-04-08] MEDS: SODIUM CHLORIDE 0.9% FLUSH 10 ML FLUSH IV FLUSH SCH ×2 (09:00→22:11)
[2018-04-08] MEDS: DOCUSATE SODIUM 50 MG/SENNA 8.6 MG TAB PO SCH ×2 (09:00→22:10)
[2018-04-08] MEDS: FAMOTIDINE 20 MG TAB PO SCH (09:34)
[2018-04-08] MEDS: CARVEDILOL 12.5 MG TAB PO SCH ×2 (09:34→22:10)
[2018-04-08] MEDS: INSULIN ASPART SUPPLEMENTAL SCALE SQ SCH ×4 (09:35→22:11)
[2018-04-08] MEDS: CIPROFLOXACIN 250 MG TAB PO SCH (09:35)
[2018-04-08] MEDS: HEPARIN SODIUM - SQ 10,000 UNITS/ML VIAL SQ SCH ×2 (09:36→22:10)
[2018-04-08] MEDS: PANTOPRAZOLE SOD 40 MG DELAYED RELEASE TAB PO SCH (09:36)
[2018-04-08 12:00] VITALS: BP 122/60; PULSE 98; RESP 18; TEMP 98.6; O2SAT 98
--- NOTE | 2018-04-08 13:47 | HHI.GIFU ---
Subjective Remarks Pt resting in bed She states some nausea but has been talking herself through it, denies emesis Complaining of some RLQ abdominal pain No BM overnight Had half a pancake for breakfast, has not had lunch yet (Billie Bonilla) Objective Vitals I&O Vital Signs Date Time Temp Pulse Resp B/P (MAP) Pulse Ox O2 Delivery O2 Flow Rate FiO2 04/08/18 08:00 98.2 85 18 142/64 (90) 97 04/08/18 07:00 Room Air 04/08/18 04:00 97.8 74 16 114/62 (79) 96 04/08/18 00:00 98.2 82 16 158/74 (102) 95 04/07/18 22:30 142/74 (96) 04/07/18 20:45 Room Air 04/07/18 20:11 99 04/07/18 20:00 98.3 95 18 88/62 (71) 99 04/07/18 16:00 98.6 77 17 148/68 (94) 99 I/O 04/07/18 04/07/18 04/07/18 04/08/18 04/08/18 04/08/18 07:00 15:00 23:00 07:00 15:00 23:00 Intake Total 240 ml 840 ml 240 ml Output Total 2000 ml 400 ml Balance 240 ml -2000 ml 840 ml -160 ml Intake Oral 240 ml 840 ml 240 ml Output Urine Total 400 ml Hemodialysis 2000 ml # Voids 2 2 # Bowel Movements 0 Laboratory Laboratory Tests Test 04/08/18 05:30 White Blood Count 9.5 Red Blood Count 4.25 Hemoglobin 11.9 Hematocrit 35.5 Mean Corpuscular Volume 83.6 Mean Corpuscular Hemoglobin 28.0 Mean Corpuscular Hemoglobin Concent 33.5 Red Cell Distribution Width 16.5 Platelet Count 219 Mean Platelet Volume 8.8 Neutrophils (%) (Auto) 57.9 Lymphocytes (%) (Auto) 28.7 Monocytes (%) (Auto) 11.2 Eosinophils (%) (Auto) 1.2 Basophils (%) (Auto) 1.0 Neutrophils # (Auto) 5.5 Lymphocytes # (Auto) 2.7 Monocytes # (Auto) 1.1 Eosinophils # (Auto) 0.1 Basophils # (Auto) 0.1 CBC Comment DIFF FINAL Differential Comment Blood Urea Nitrogen 22 Creatinine 5.34 Random Glucose 131 Calcium Level 10.7 Phosphorus Level 4.7 Sodium Level 135 Potassium Level 3.6 Chloride Level 95 Carbon Dioxide Level 27.7 Anion Gap 12 Estimat Glomerular Filtration Rate 8 25-Hydroxy Vitamin D Total 9.8 Parathyroid Hormone (Intact) 233.3 Date/Time Source Procedure Growth Status 04/05/18 17:30 Fluid Peritoneal Fluid Gram Stain - Final Complete 04/05/18 17:30 Fluid Peritoneal Fluid Body Fluid Culture - Final NO GROWTH IN 72 HRS.--AEROBICALLY OR ... Complete 04/05/18 21:25 Stool Stool Cryptosporidium Exam - Final NEGATIVE - NO CRYPTOSPORIDIUM ANTIGEN... Complete 04/05/18 21:25 Stool Stool Stool Pus (TREVOR) - Final NO WBC'S SEEN Complete 04/05/18 21:25 Stool Stool Giardia Antigen (TREVOR) - Final NEGATIVE - NO GIARDIA ANTIGEN DETECTE... Complete Physical Exam HEENT: Normocephalic; atraumatic CHEST: Even/unlabored CARDIAC: RRR ABDOMEN: Soft, mildly distended, nontender, bowel sounds active EXTREMITIES: No clubbing, cyanosis, or edema. SKIN: Normal; no rash; no jaundice. STACK YIELD ENGINEER: Alert and oriented x 3 (Billie Bonilla) Assessment and Plan Plan ASSESSMENT - Nausea and vomiting- EGD (04/06) Esophagitis, gastritis. Biopsy pending. - LLQ abdominal pain- no abdominal imaging Colonoscopy (04/06) Moderate sized polyp in the transverse colon, large semi- pedunculated polyp in the rectum, significant erythema with friability and ulceration of the sigmoid region this may represent ischemic changes, biopsy - Diarrhea - C. Diff, enteric pathogens, and ova and parasites negative. - Leukocytosis on admission, now WNL- PD catheter- culture from peritoneal fluid with no growth within 72 hours -ESRD on HD - now with PD cath, transitioning to PD (04/08) Pt reports some nausea today but denies emesis. Some RLQ abdominal pain, not worse with palpation. Denies any continued diarrhea. PLAN - Heart healthy diet - EGD/colon biopsy pending - No recent abdominal imaging- CT abdomen/pelvis WO IV contrast to assess LLQ abdominal pain - Antiemetics PRN - Further recommendations based on clinical course and results of above Patient has been seen and examined by myself and Dr. 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
[2018-04-08] MEDS ORDERED: DIATRIZOATE MEGLUM/DIATRIZOATE SOD 9 ML CUP PO ONE (15:00)
[2018-04-08 16:00] VITALS: BP 120/63; PULSE 94; RESP 18; TEMP 98; O2SAT 98
--- NOTE | 2018-04-08 17:05 | HHI.NPPN ---
Subjective Complaints: Abdominal Pain Renal Failure: End Stage Renal Disease History of Present Illness The patient is on the transitional dialysis program here at [facility] and receives her dialysis on Mondays, Wednesdays and Fridays. She is followed up as an outpatient with Dr. Balderas. The patient has been doing training with peritoneal dialysis and has a peritoneal dialysis catheter in place. She has done 2 exchanges with 1000 mL and did 1 exchange previously on . On Thursday, she came for her regular dialysis session. She was feeling somewhat tired and, at home, cooked dinner with steak tips and rice. Afterwards, she began to have symptoms of nausea and vomiting as well as diarrhea. She camehere to the emergency room with ongoing nausea and vomiting and symptoms of bloody diarrhea. She also presented with hypertension with a systolic blood pressure of 218. She was admitted with the primary team. The patient was assessed with gastroenteritis and was given supportive treatment with Zofran initially. Her blood pressure medications were resumed and her blood pressure has improved this afternoon. The last reading was a systolic blood pressure of 110s. At this time, the patient is resting in bed comfortably. Her stool cultures have been negative to date. She reports she is feeling much better and feels like she could likely go home soon. Given her ESRD and hypertension , nephrology was consulted for further evaluation Additional Remarks Continues to nausea, to have CT of abdomen. (Shira Frank) Review of Systems Respiratory Respiratory Remarks Denies SOB (Shira Frank) Gastrointestinal Gastrointestinal: Abdominal Pain, Nausea & Vomiting (Shira Frank) Objective Data Data Vital Signs Date Time Temp Pulse Resp B/P (MAP) Pulse Ox O2 Delivery O2 Flow Rate FiO2 04/08/18 12:00 98.6 98 18 122/60 (80) 98 04/08/18 08:00 98.2 85 18 142/64 (90) 97 04/08/18 07:00 Room Air 04/08/18 04:00 97.8 74 16 114/62 (79) 96 04/08/18 00:00 98.2 82 16 158/74 (102) 95 04/07/18 22:30 142/74 (96) 04/07/18 20:45 Room Air 04/07/18 20:11 99 04/07/18 20:00 98.3 95 18 88/62 (71) 99 (Shira Frank) -: 04/08/18 0530 04/08/18 0530 Physical Exam General Appearance: No Acute Distress (Shira Frank) Eyes Eye Exam: Pupils Equal (Shira Frank) Throat Throat Exam: Oral Mucosa [place] & Moist (Shira Frank) Neck Neck Exam: Neck Supple (Shira Frank) Pulmonary Resp Exam: Clear Bilaterally (Shira Frank) Cardiology CV Exam: Regular, Normal Sinus Rhythm (Shira Frank) Gastrointestinal/Abdomen GI Exam: Soft, Distended GI Remarks tender (Shira Frank) Integumentary Skin Exam: Warm, Dry, Intact (Shira Frank) Extremeties Extremities Exam: No Edema (Shira Frank) Neurologic Neuro Exam: Alert, Awake, Oriented, Speech Clear, Moving All Extremities (Shira Frank) Psychiatric Psych Exam: Appropriate Responses (Shira Frank) Assessment/Plan Problem List: (1) End-stage renal disease (ESRD) ICD Codes: N18.6 - End stage renal disease Plan: The patient is on hemodialysis at the Transitional dialysis here at [facility] with Thursday, Thursday, Thursday dialysis. Continue MWF HD here. Of note, the patient is also doing peritoneal dialysis training. She has no signs of any peritonitis at this point and it appears that her symptoms are secondary to p.o. intake possibly from steak tips , which she had cooked at home. Peritoneal dialysis fluid with negative culture. Will continue Ciprofloxacin and discontinue vancomycin IP Continue to closely monitor at this time. Hemodialysis yesterday with a UF of 2 liters Hypercalcemia will reduce ca bath with dialysis Ct of abdomen and pelvis today. (2) Gastroenteritis ICD Codes: K52.9 - Noninfective gastroenteritis and colitis, unspecified Plan: Ongoing symptoms Ct of abdomen and pelvis (3) HTN (hypertension) ICD Codes: I10 - Essential (primary) hypertension Plan: Continue to monitor. (Shira Frank) Problem List: (1) End-stage renal disease (ESRD) ICD Codes: N18.6 - End stage renal disease Plan: The patient is on hemodialysis at the Transitional dialysis here at [facility] with Thursday, Thursday, Thursday dialysis. Continue MWF HD here. Of note, the patient is also doing peritoneal dialysis training. She has no signs of any peritonitis at this point and it appears that her symptoms are secondary to p.o. intake possibly from steak tips , which she had cooked at home. Peritoneal dialysis fluid with negative culture. Will continue Ciprofloxacin and discontinue vancomycin IP Continue to closely monitor at this time. Hemodialysis yesterday with a UF of 2 liters Hypercalcemia will reduce ca bath with dialysis Ct of abdomen and pelvis today. Patient seen and examined, agree with above. (2) Gastroenteritis ICD Codes: K52.9 - Noninfective gastroenteritis and colitis, unspecified Plan: Ongoing symptoms Ct of abdomen and pelvis (3) HTN (hypertension) ICD Codes: I10 - Essential (primary) hypertension Plan: Continue to monitor. (Adebayo Balderas MD) Shira Frank April 08, 2018 17:05 Adebayo Balderas MD April 09, 2018 00:28
[2018-04-08] MEDS: PROMETHAZINE HCL 25 MG TAB PO PRN (17:52)
[2018-04-08 20:00] VITALS: BP_SYST 15; BP_SYST 152; BP_DIAS 66; PULSE 87; RESP 18; TEMP 98.8; O2SAT 98
[2018-04-09] VITALS (8 sets, daily range): BP systolic 104–155; BP diastolic 56–71; PULSE 77–104; RESP 16–20; TEMP 97.4–98.9; O2SAT 94–99
[2018-04-09] MEDS: PROMETHAZINE HCL 25 MG TAB PO PRN (01:08)
--- NOTE | 2018-04-09 03:13 | RADRPT ---
EXAM DATE: 04/09/2018 2:50 AM EDT AGE/SEX: 52 years / Female INDICATIONS: Abdomen pain,mid abdomen CLINICAL DATA: This is the patient's initial encounter. Patient reports that signs and symptoms have been present for 1 day and indicates a pain score of 5/10. MEDICAL/SURGICAL HISTORY: Cardiovascular disease. Chronic obstructive pulmonary disease. Hype rtension. Renal disease Appendectomy. Cholecystectomy. Tubal ligation. RADIATION DOSE: 16.52 CTDI (mGy) COMPARISON: [facility], CT ABDOMEN & PELVIS W/O CONTRAST, 05/03/2015. . TECHNIQUE: Multiple contiguous axial images were obtained through the abdomen. Images were obtained using multiple row detector helical technique. Using dose reduction techniques, radiation dose was ke pt as low as reasonably achievable to obtain optimal diagnostic quality images. FINDINGS: Lower Lungs: The visualized lower lungs are clear. Liver: The liver has a homogeneous density without space-occupying lesion. There is no dilation of th e biliary tree. The patient is status post cholecystectomy. Spleen: Spleen appears borderline enlarged. There is a splenic calcified granuloma present. Pancreas: Unremarkable without mass or calcification. Kidneys: There are multiple small 2 to 3 mm calcifications of the central aspects of the kidneys michelle aterally without hydronephrosis. There appears to be a renal dialysis catheter in place. Adrenal Glands: Unremarkable. Aorta: The aorta and proximal iliac vessels are grossly unremarkable without aneurysmal dilation. Bowel/Mesentery: There is a small hiatal hernia. There are scattered diverticula seen in the sigmoid portion colon. Abdominal Wall: Again noted is the peritoneal dialysis catheter. Retroperitoneum: No evidence of adenopathy in the retrocrural, para-aortic, or deep pelvic regions. Bladder: Contours are smooth. Reproductive Organs: No abnormal masses or calcifications seen. Inguinal: The inguinal region is unremarkable without evidence of adenopathy. Bony Structures: Unremarkable. CONCLUSION: 1. No acute abnormality seen. 2. Multiple small nonobstructing renal stones. 3. Peritoneal dialysis catheter. 4. Borderline splenomegaly. Electronically signed by: Rhett Miller MD 04/09/2018 3:11 AM EDT
[2018-04-09] MEDS: LEVOTHYROXINE SODIUM 50 MCG TAB PO SCH (06:59)
[2018-04-09] MEDS: SUCRALFATE 1 GM TAB PO SCH ×2 (06:59→15:12)
[2018-04-09] MEDS: hydrALAZINE HCL 100 MG TAB PO SCH ×3 (06:59→22:19)
[2018-04-09] MEDS: INSULIN ASPART SUPPLEMENTAL SCALE SQ SCH ×4 (08:00→22:35)
[2018-04-09] MEDS: SODIUM CHLORIDE 0.9% FLUSH 10 ML FLUSH IV FLUSH SCH ×2 (09:00→22:20)
[2018-04-09] MEDS: GENTAMICIN SULFATE 20 MG/2 ML VIAL OTHER PRN (11:30)
[2018-04-09] MEDS: CARVEDILOL 12.5 MG TAB PO SCH ×2 (12:30→22:19)
[2018-04-09] MEDS: FAMOTIDINE 20 MG TAB PO SCH (12:30)
[2018-04-09] MEDS: DOCUSATE SODIUM 50 MG/SENNA 8.6 MG TAB PO SCH ×2 (12:30→22:20)
[2018-04-09] MEDS: CIPROFLOXACIN 250 MG TAB PO SCH (12:30)
[2018-04-09] MEDS: PANTOPRAZOLE SOD 40 MG DELAYED RELEASE TAB PO SCH (12:30)
[2018-04-09] MEDS: HEPARIN SODIUM - SQ 10,000 UNITS/ML VIAL SQ SCH ×2 (12:31→22:20)
--- NOTE | 2018-04-09 14:27 | HHI.GIFU ---
Subjective Remarks pt is sitting up in bed, just came out of the shower, no diarrhea today, no bleeding, abd pain is just aches in different areas but nothing severe. (Yang Mckinney DAVID) Objective Vitals I&O Vital Signs Date Time Temp Pulse Resp B/P (MAP) Pulse Ox O2 Delivery O2 Flow Rate FiO2 04/09/18 12:30 97.4 104 20 128/68 (88) 94 04/09/18 10:06 96 04/09/18 08:00 98.0 82 20 155/71 (99) 96 04/09/18 04:00 97.6 77 16 121/58 (79) 97 04/09/18 02:10 16 04/09/18 00:00 98.5 85 20 104/56 (72) 97 04/08/18 20:00 98.8 87 18 152/66 (94) 98 04/08/18 16:00 98.0 94 18 120/63 (82) 98 I/O 04/08/18 04/08/18 04/08/18 04/09/18 04/09/18 04/09/18 07:00 15:00 23:00 07:00 15:00 23:00 Intake Total 240 ml 600 ml 960 ml Output Total 400 ml 200 ml 660 ml 3000 ml Balance -160 ml 400 ml 300 ml -3000 ml Intake Oral 240 ml 600 ml 960 ml Output Urine Total 400 ml 200 ml 660 ml Hemodialysis 3000 ml # Voids 2 # Bowel Movements 0 Laboratory Date/Time Source Procedure Growth Status 04/05/18 17:30 Fluid Peritoneal Fluid Gram Stain - Final Complete 04/05/18 17:30 Fluid Peritoneal Fluid Body Fluid Culture - Final NO GROWTH IN 72 HRS.--AEROBICALLY OR ... Complete 04/05/18 21:25 Stool Stool Cryptosporidium Exam - Final NEGATIVE - NO CRYPTOSPORIDIUM ANTIGEN... Complete 04/05/18 21:25 Stool Stool Stool Pus (TREVOR) - Final NO WBC'S SEEN Complete 04/05/18 21:25 Stool Stool Giardia Antigen (TREVOR) - Final NEGATIVE - NO GIARDIA ANTIGEN DETECTE... Complete Imaging Last Impressions Abdomen/Pelvis CT 04/09/18 0000 Signed Impressions: CONCLUSION: 1. No acute abnormality seen. 2. Multiple small nonobstructing renal stones. 3. Peritoneal dialysis catheter. 4. Borderline splenomegaly. Physical Exam HEENT: Normocephalic; atraumatic CHEST: Even/unlabored CARDIAC: RRR ABDOMEN: Soft, mildly distended, nontender, bowel sounds active EXTREMITIES: No clubbing, cyanosis, or edema. SKIN: Normal; no rash; no jaundice. 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 Biopsy pending. - LLQ abdominal pain- no abdominal imaging Colonoscopy (04/06) Moderate sized polyp in the transverse colon, large semi- pedunculated polyp in the rectum, significant erythema with friability and ulceration of the sigmoid region this may represent ischemic changes, biopsy - Diarrhea - C. Diff, enteric pathogens, and ova and parasites negative. - Leukocytosis on admission, now WNL- PD catheter- culture from peritoneal fluid with no growth within 72 hours -ESRD on HD - now with PD cath, transitioning to PD (04/08) Pt reports some nausea today but denies emesis. Some RLQ abdominal pain, not worse with palpation. Denies any continued diarrhea. (04/09) No diarrhea today, just mild abd aches, no bleeding CT of A/P on 04/08 showed renal stones, dialysis catheter, borderline splenomegaly Bx showed esophagitis, gastritis, TV polyp in rectum , ?ischemic colitis PLAN - Heart healthy diet - okay to DC from GI stand point - F/u with GI in 2 weeks - Colonoscopy in 3 months Patient has been seen and examined by myself and Dr. Mccarthy and this note is written on his beha (Yang Mckinney) Physician Comments Patient seen and examined Agree with above Continue with current supportive care Monitor labs Not much to add from a GI standpoint we will sign off Follow-up with GI post discharge (Joselo Mccarthy MD) Yang Mckinney April 09, 2018 14:27 Joselo Mccarthy MD April 09, 2018 15:05
--- NOTE | 2018-04-09 14:50 | HHI.PR ---
Subjective Remarks Patient says she is feeling better today. Denies any chest pain or shortness of breath. Denies nausea or vomiting today. Says she feels like going home tomorrow morning. Objective Vital Signs Date Time Temp Pulse Resp B/P (MAP) Pulse Ox O2 Delivery O2 Flow Rate FiO2 04/09/18 12:30 97.4 104 20 128/68 (88) 94 04/09/18 10:06 96 04/09/18 08:00 98.0 82 20 155/71 (99) 96 04/09/18 04:00 97.6 77 16 121/58 (79) 97 04/09/18 02:10 16 04/09/18 00:00 98.5 85 20 104/56 (72) 97 04/08/18 20:00 98.8 87 18 152/66 (94) 98 04/08/18 16:00 98.0 94 18 120/63 (82) 98 I/O 04/08/18 04/08/18 04/08/18 04/09/18 04/09/18 04/09/18 07:00 15:00 23:00 07:00 15:00 23:00 Intake Total 240 ml 600 ml 960 ml Output Total 400 ml 200 ml 660 ml 3000 ml Balance -160 ml 400 ml 300 ml -3000 ml Intake Oral 240 ml 600 ml 960 ml Output Urine Total 400 ml 200 ml 660 ml Hemodialysis 3000 ml # Voids 2 # Bowel Movements 0 Result Diagram: 04/08/18 0530 04/08/18 0530 Objective Remarks GENERAL: She is sitting up in chair bedside. Appears comfortable. SKIN: Warm and dry. HEAD: Normocephalic. EYES: No scleral icterus. No injection or drainage. NECK: Supple, trachea midline. No JVD. CARDIOVASCULAR: Regular rate and rhythm without murmurs, gallops, or rubs. RESPIRATORY: Breath sounds equal bilaterally. No accessory muscle use. GASTROINTESTINAL: Abdomen soft, non-tender, nondistended. MUSCULOSKELETAL: No cyanosis, trace peripheral edema. BACK: Nontender without obvious deformity. No CVA tenderness. A/P Assessment and Plan //Gastroenteritis:acute onset of nausea/vomiting and diarrhea, send stool cultures, C diff is negative. Continue supportive treatment w/ analgesics/ antiemetics, received Zofran minimal improvement added reglan. Add phenergan as patient with persistent nausea and vomiting Consult GI patient with bloody diarrhea = GI following. CT abdomen with no acute findings. Appreciate assistance. //Nephrology is treating for peritonitis = Continue antibiotics as per nephrology. //Esophagitis, gastritis, colitis. S/P EGD/Colonoscopy 04/06 . Patient has : esophagitis, gastritis, colitis. Continue PPI. Biopsies are pending GI following. Add Carafate //Intractable Nausea. Vomiting improved: secondary to above, continue w/ analgesics/antiemetics as needed. IVF-caution w/ ESRD. received Zofran minimal improvement added reglan. Add phenergan as patient with persistent nausea and vomiting Right lower quadrant abdominal pain. Plan for CT abdomen and pelvis with contrast = Improved. Continue to monitor. //Hypokalemia. Secondary to intractable nausea and vomiting, diarrhea. Replace potassium. Monitor and replace lites as needed. We will also check magnesium. = Improved. Magnesium within normal limits. //ESRD on HD: M/W/F, follows w/ Dr. Balderas, will consult to resume HD as scheduled. = Appreciate nephrology assistance. //HTN: Uncontrolled. Likely compounded by acute nausea/vomiting, BP 218/98, HR 92 on arrival, antihypertensives as needed for BP >180. //DVT Prophylaxis: Heparin sq CM consulted for DC planning as needed Discharge Planning Cleared by GI for discharge. Would like to monitor overnight to make sure she is tolerating p.o. intake. Discharge home when cleared by nephrology. Duke Chacon MD April 09, 2018 14:50
--- NOTE | 2018-04-10 00:05 | HHI.NPPN ---
Subjective Complaints: Abdominal Pain Renal Failure: End Stage Renal Disease History of Present Illness The patient is on the transitional dialysis program here at [facility] and receives her dialysis on Mondays, Wednesdays and Fridays. She is followed up as an outpatient with Dr. Balderas. The patient has been doing training with peritoneal dialysis and has a peritoneal dialysis catheter in place. She has done 2 exchanges with 1000 mL and did 1 exchange previously on . On Thursday, she came for her regular dialysis session. She was feeling somewhat tired and, at home, cooked dinner with steak tips and rice. Afterwards, she began to have symptoms of nausea and vomiting as well as diarrhea. She camehere to the emergency room with ongoing nausea and vomiting and symptoms of bloody diarrhea. She also presented with hypertension with a systolic blood pressure of 218. She was admitted with the primary team. The patient was assessed with gastroenteritis and was given supportive treatment with Zofran initially. Her blood pressure medications were resumed and her blood pressure has improved this afternoon. The last reading was a systolic blood pressure of 110s. At this time, the patient is resting in bed comfortably. Her stool cultures have been negative to date. She reports she is feeling much better and feels like she could likely go home soon. Given her ESRD and hypertension , nephrology was consulted for further evaluation Additional Remarks This is late entry, note for 04/09/18. Patient is alert, still has loose BM, not in distress. Review of Systems Respiratory Respiratory Remarks Denies SOB Gastrointestinal Gastrointestinal: Abdominal Pain, Nausea & Vomiting Objective Data Data Vital Signs Date Time Temp Pulse Resp B/P (MAP) Pulse Ox O2 Delivery O2 Flow Rate FiO2 04/09/18 20:32 98.9 93 20 130/64 (86) 98 04/09/18 17:50 99 21 04/09/18 16:00 98.4 80 20 144/69 (94) 99 04/09/18 12:30 97.4 104 20 128/68 (88) 94 04/09/18 10:06 96 04/09/18 08:00 98.0 82 20 155/71 (99) 96 04/09/18 04:00 97.6 77 16 121/58 (79) 97 04/09/18 02:10 16 -: 04/08/18 0530 04/08/18 0530 Physical Exam General Appearance: No Acute Distress Eyes Eye Exam: Pupils Equal Throat Throat Exam: Oral Mucosa [place] & Moist Neck Neck Exam: Neck Supple Pulmonary Resp Exam: Clear Bilaterally Cardiology CV Exam: Regular, Normal Sinus Rhythm Gastrointestinal/Abdomen GI Exam: Soft, Distended Integumentary Skin Exam: Warm, Dry, Intact Extremeties Extremities Exam: No Edema Neurologic Neuro Exam: Alert, Awake, Oriented, Speech Clear, Moving All Extremities Psychiatric Psych Exam: Appropriate Responses Assessment/Plan Problem List: (1) End-stage renal disease (ESRD) ICD Codes: N18.6 - End stage renal disease Plan: The patient is on hemodialysis at the Transitional dialysis here at [facility] with Thursday, Thursday, Thursday dialysis. Continue MWF HD here. Of note, the patient is also doing peritoneal dialysis training. She has no signs of any peritonitis at this point and it appears that her symptoms are secondary to p.o. intake possibly from steak tips , which she had cooked at home. Peritoneal dialysis fluid with negative culture. Will continue Ciprofloxacin and discontinue vancomycin IP Continue to closely monitor at this time. Hemodialysis yesterday with a UF of 2 liters Hypercalcemia will reduce ca bath with dialysis Ct of abdomen and pelvis in AM. HD will be in AM. (2) Gastroenteritis ICD Codes: K52.9 - Noninfective gastroenteritis and colitis, unspecified Plan: Ongoing symptoms Ct of abdomen and pelvis (3) HTN (hypertension) ICD Codes: I10 - Essential (primary) hypertension Plan: Continue to monitor. Adebayo Balderas MD April 10, 2018 00:05
[2018-04-10 00:32] VITALS: BP 104/55; PULSE 85; RESP 20; TEMP 99; O2SAT 97
[2018-04-10] MEDS: CIPROFLOXACIN 250 MG TAB PO SCH (03:08)
[2018-04-10 04:32] VITALS: BP 156/70; PULSE 77; RESP 20; TEMP 98.3; O2SAT 97
[2018-04-10] MEDS: METOCLOPRAMIDE HCL 10 MG/2 ML VIAL IV PUSH PRN ×2 (04:33→09:15)
[2018-04-10] MEDS: SUCRALFATE 1 GM TAB PO SCH (06:32)
[2018-04-10] MEDS: hydrALAZINE HCL 100 MG TAB PO SCH (06:32)
[2018-04-10] MEDS: LEVOTHYROXINE SODIUM 50 MCG TAB PO SCH (06:32)
[2018-04-10] MEDS: SODIUM CHLORIDE 0.9% FLUSH 10 ML FLUSH IV FLUSH SCH (09:09)
[2018-04-10] MEDS: HEPARIN SODIUM - SQ 10,000 UNITS/ML VIAL SQ SCH (09:09)
[2018-04-10] MEDS: CARVEDILOL 12.5 MG TAB PO SCH (09:09)
[2018-04-10] MEDS: FAMOTIDINE 20 MG TAB PO SCH (09:09)
[2018-04-10] MEDS: PANTOPRAZOLE SOD 40 MG DELAYED RELEASE TAB PO SCH (09:09)
[2018-04-10] MEDS: DOCUSATE SODIUM 50 MG/SENNA 8.6 MG TAB PO SCH (09:09)
[2018-04-10 09:35] VITALS: O2SAT 98
[2018-04-10] MEDS: INSULIN ASPART SUPPLEMENTAL SCALE SQ SCH (10:16)
--- NOTE | 2018-04-10 10:54 | HHI.PR ---
Subjective Remarks Patient says she is feeling well. Still little nausea, however no vomiting. Feels like going home. Objective Vital Signs Date Time Temp Pulse Resp B/P (MAP) Pulse Ox O2 Delivery O2 Flow Rate FiO2 04/10/18 09:35 98 21 04/10/18 04:32 98.3 77 20 156/70 (98) 97 04/10/18 00:32 99.0 85 20 104/55 (71) 97 04/09/18 20:32 98.9 93 20 130/64 (86) 98 04/09/18 17:50 99 21 04/09/18 16:00 98.4 80 20 144/69 (94) 99 04/09/18 12:30 97.4 104 20 128/68 (88) 94 I/O 04/09/18 04/09/18 04/09/18 04/10/18 04/10/18 04/10/18 07:00 15:00 23:00 07:00 15:00 23:00 Intake Total 960 ml 480 ml Output Total 660 ml 3000 ml Balance 300 ml -3000 ml 480 ml Intake Oral 960 ml 480 ml Output Urine Total 660 ml Hemodialysis 3000 ml # Voids 1 Result Diagram: 04/08/18 0530 04/08/18 0530 Objective Remarks GENERAL: She is sitting up in chair bedside. Appears comfortable. Exam unchanged. SKIN: Warm and dry. HEAD: Normocephalic. EYES: No scleral icterus. No injection or drainage. NECK: Supple, trachea midline. No JVD. CARDIOVASCULAR: Regular rate and rhythm without murmurs, gallops, or rubs. RESPIRATORY: Breath sounds equal bilaterally. No accessory muscle use. GASTROINTESTINAL: Abdomen soft, non-tender, nondistended. MUSCULOSKELETAL: No cyanosis, trace peripheral edema. BACK: Nontender without obvious deformity. No CVA tenderness. A/P Assessment and Plan //Gastroenteritis:acute onset of nausea/vomiting and diarrhea, send stool cultures, C diff is negative. Continue supportive treatment w/ analgesics/ antiemetics, received Zofran minimal improvement added reglan. Add phenergan as patient with persistent nausea and vomiting Consult GI patient with bloody diarrhea = GI following. CT abdomen with no acute findings. Appreciate assistance. = Patient tolerating diet. Discharge home with antiemetics. Follow with GI as outpatient. //Nephrology is treating for peritonitis = Continue antibiotics as per nephrology. //Esophagitis, gastritis, colitis. S/P EGD/Colonoscopy 04/06 . Patient has : esophagitis, gastritis, colitis. Continue PPI. Biopsies are pending GI following. Add Carafate //Intractable Nausea. Vomiting improved: secondary to above, continue w/ analgesics/antiemetics as needed. IVF-caution w/ ESRD. received Zofran minimal improvement added reglan. Add phenergan as patient with persistent nausea and vomiting Right lower quadrant abdominal pain. Plan for CT abdomen and pelvis with contrast = Improved. Continue to monitor. = Discharge home with antiemetics as outpatient. //Hypokalemia. Secondary to intractable nausea and vomiting, diarrhea. Replace potassium. Monitor and replace lites as needed. We will also check magnesium. = Improved. Magnesium within normal limits. //ESRD on HD: M/W/F, follows w/ Dr. Balderas, will consult to resume HD as scheduled. = Appreciate nephrology assistance. = Follow-up with nephrology as outpatient. Discussed with nephrology yesterday. Patient does not need antibiotics their account. //HTN: Uncontrolled. Likely compounded by acute nausea/vomiting, BP 218/98, HR 92 on arrival, antihypertensives as needed for BP >180. = Blood pressure acceptable. //DVT Prophylaxis: Heparin sq CM consulted for DC planning as needed Discharge Planning Cleared by GI for discharge. Would like to monitor overnight to make sure she is tolerating p.o. intake. Discharge home when cleared by nephrology. Duke Chacon MD April 10, 2018 10:54
[2018-04-10] MEDS ORDERED: ZOFR4TAB3 SL (11:00)
[2018-04-10] MEDS ORDERED: HYDR-3800 PO (11:00)
[2018-04-10] MEDS ORDERED: ATOR40TA16 PO (11:00)
[2018-04-10] MEDS ORDERED: AMLO10TA2 PO (11:00)
[2018-04-10] MEDS ORDERED: PANT40TA3 PO (11:00)
[2018-04-10] MEDS ORDERED: PLAV75TA29 PO (11:00)
[2018-04-10] MEDS ORDERED: CARV12.5 PO (11:00)
[2018-04-10] MEDS ORDERED: ASPI81TA23 PO (11:03)
--- NOTE | 2018-04-10 11:10 | HHI.DS ---
Discharge Summary Admission Date April 03, 2018 at 09:58 Discharge Date: April 10, 2018 Admitting Diagnosis gastroenteritis (1) Gastroenteritis ICD Code: K52.9 - Noninfective gastroenteritis and colitis, unspecified (2) Intractable nausea and vomiting ICD Code: R11.2 - Nausea with vomiting, unspecified (3) ESRD on hemodialysis ICD Code: N18.6 - End stage renal disease; Z99.2 - Dependence on renal dialysis (4) HTN (hypertension) ICD Code: I10 - Essential (primary) hypertension Procedures EGD, colonoscopy. Please see report. Brief History - From Admission This is a 52-year-old female with a PMH of HTN, COPD, Hyperlipidemia, CAD and ESRD on HD M/W/F who presented to the ER w/ complaints of nausea, vomiting and diarrhea starting earlier last night. States she had dialysis on Thursday like usual, normally has some nausea following HD, however this time has had multiple episodes of nausea w/ vomiting in addition to bloody diarrhea. No h/o similar symptoms in the past. Denies fever, chills or abdominal pain. On arrival, BP 218/98, HR 92, O2 sat 100% RA, Afebrile. CBC unremarkable. Creatinine 6.0, previously 5.43 on 03/29/2018. C Diff pending. CBC/BMP: 04/08/18 0530 04/08/18 0530 Significant Findings Laboratory Tests Test 04/08/18 05:30 Monocytes (%) (Auto) 11.2 % (0.0-8.0) Monocytes # (Auto) 1.1 TH/MM3 (0-0.9) Blood Urea Nitrogen 22 MG/DL (7-18) Creatinine 5.34 MG/DL (0.50-1.00) Random Glucose 131 MG/DL (74-106) Calcium Level 10.7 MG/DL (8.5-10.1) Sodium Level 135 MEQ/L (136-145) Chloride Level 95 MEQ/L (98-107) Estimat Glomerular Filtration Rate 8 ML/MIN (>89) 25-Hydroxy Vitamin D Total 9.8 ng/ML (30-100) Parathyroid Hormone (Intact) 233.3 PG/ML (12.4-76.8) PE at Discharge GENERAL: Middle-aged white female in mild distress, sitting at the edge of bed w / retching. HEENT: PERRLA, EOMI. No scleral icterus or conjunctival pallor. No lid lag or facial droop. CARDIOVASCULAR: Regular rate and rhythm. No obvious murmurs to auscultation. No chest tenderness to palpation. RESPIRATORY: No obvious rhonchi or wheezing. Clear to auscultation. Breath sounds equal bilaterally. GASTROINTESTINAL: Abdomen soft, diffuse mild tenderness, nondistended. BS normal. MUSCULOSKELETAL: Extremities without clubbing, cyanosis, or edema. No obvious deformities. NEUROLOGICAL: Awake, alert and oriented x4. No focal neurologic deficits. Moving both upper and lower extremities spontaneously. Hospital Course Patient presented with intractable nausea and vomiting. Imaging as above. Gastroenterology was consulted. EGD showed possible ischemic colitis, as well as adenoma which was biopsied. Biopsies pending. Patient's nausea vomiting improved on antiemetics. Stool negative for enteric pathogens. Patient was also seen by nephrology for dialysis. Peritoneal fluid negative for infection. Patient will need to follow with nephrology as outpatient For probably summary from most recent progress note, please see below. //Gastroenteritis:acute onset of nausea/vomiting and diarrhea, send stool cultures, C diff is negative. Continue supportive treatment w/ analgesics/ antiemetics, received Zofran minimal improvement added reglan. Add phenergan as patient with persistent nausea and vomiting Consult GI patient with bloody diarrhea = GI following. CT abdomen with no acute findings. Appreciate assistance. = Patient tolerating diet. Discharge home with antiemetics. Follow with GI as outpatient. //Nephrology is treating for peritonitis = Continue antibiotics as per nephrology. //Esophagitis, gastritis, colitis. S/P EGD/Colonoscopy 04/06 . Patient has : esophagitis, gastritis, colitis. Continue PPI. Biopsies are pending GI following. Add Carafate //Intractable Nausea. Vomiting improved: secondary to above, continue w/ analgesics/antiemetics as needed. IVF-caution w/ ESRD. received Zofran minimal improvement added reglan. Add phenergan as patient with persistent nausea and vomiting Right lower quadrant abdominal pain. Plan for CT abdomen and pelvis with contrast = Improved. Continue to monitor. = Discharge home with antiemetics as outpatient. //Hypokalemia. Secondary to intractable nausea and vomiting, diarrhea. Replace potassium. Monitor and replace lites as needed. We will also check magnesium. = Improved. Magnesium within normal limits. //ESRD on HD: M/W/F, follows w/ Dr. Balderas, will consult to resume HD as scheduled. = Appreciate nephrology assistance. = Follow-up with nephrology as outpatient. Discussed with nephrology yesterday. Patient does not need antibiotics their account. //HTN: Uncontrolled. Likely compounded by acute nausea/vomiting, BP 218/98, HR 92 on arrival, antihypertensives as needed for BP >180. = Blood pressure acceptable. //DVT Prophylaxis: Heparin sq CM consulted for DC planning as needed Discharge Planning Cleared by GI for discharge. Would like to monitor overnight to make sure she is tolerating p.o. intake. Discharge home when cleared by nephrology. Pt Condition on Discharge: Good Discharge Disposition: Discharge Home Discharge Time: > 30 minutes Discharge Instructions DIET: Follow Instructions for: Diabetic Diet Activities you can perform: Regular-No Restrictions Follow up Referrals: Gastroenterology - 1 Week with Joselo Mccarthy MD Nephrology - 2-3 Days with Adebayo Balderas MD PCP Follow-up - 1 Week with [facility] New Medications: Aspirin DR (Aspirin EC) 81 Mg Tabdr 81 MG PO DAILY for Blood Clot Prevention for 30 Days, #30 TAB 0 Refills Do not take any other NSAIDs Ondansetron Odt (Zofran Odt) 4 Mg Tab 4 MG SL Q6HR PRN for Nausea/Vomiting, #30 TAB 0 Refills Pantoprazole (Pantoprazole) 40 Mg Tab 40 MG PO DAILY for gastritis for 30 Days, #30 TAB Continued Medications: Amlodipine (Amlodipine) 10 Mg Tab 10 MG PO DAILY for Blood Pressure Management for 30 Days, #30 TAB 6 Refills ( This prescription has been renewed) Atorvastatin (Atorvastatin) 40 Mg Tab 40 MG PO HS for Cholesterol Management for 30 Days, #30 TAB 6 Refills (This prescription has been renewed) Carvedilol (Coreg) 12.5 Mg Tab 12.5 MG PO Q12HR for Blood Pressure Management for 30 Days, #60 TAB 6 Refills ( This prescription has been renewed) Clonidine (Catapres) 0.1 Mg Tab 0.1 MG PO Q6H PRN for Systolic BP greater than 160 for 30 Days, #120 TAB 6 Refills Clopidogrel (Plavix) 75 Mg Tab 75 MG PO DAILY for Blood Clot Prevention for 30 Days, #30 TAB 6 Refills (This prescription has been renewed) Hydralazine HCl (Hydralazine HCl) 50 Mg Tablet 100 MG PO TID for Blood Pressure Management for 30 Days, #180 TAB 6 Refills ( This prescription has been renewed) Hydrocodone/Acetaminophen (Hydrocodone-Acetamin 5-325 mg) 5 Mg-325 Mg Tablet 1 TAB PO Q6HR PRN for PAIN SCALE 6 TO 10 for 7 Days, #21 TAB Insulin Detemir Inj (Levemir Inj) 1,000 unit/ 10 ML Vial 10 UNITS SQ HS for Blood Sugar Management for 30 Days, #1 INJECTION 11 Refills Do not mix with any other Insulin. Levothyroxine (Synthroid) 50 Mcg Tab 50 MCG PO DAILY@0600 for Thyroid for 30 Days, #30 TAB 11 Refills Nitroglycerin SL (Nitrostat SL) 0.4 Mg Subl 0.4 MG SL UNSCH PRN for CHEST PAIN for 30 Days, #1 BOTTLE 6 Refills Vitamin B Cmplx/Vit C/Folic AC (Nephro-Gurjit Rx) 1 Tab 1 CAP PO DAILY for dialysis for 30 Days, #30 TAB 11 Refills [Albuterol-Ipratropium Neb] () 1 AMPULE NEBU 1 AMPULE INH Q2HR NEB PRN for WHEEZING for 30 Days, #1 BOX 6 Refills Discontinued Medications: Levofloxacin (Levaquin) 500 Mg Tablet 500 MG PO DAILY for Infection for 7 Days, #7 TAB 0 Refills Methylprednisolone Dosepak (Medrol Dosepak) 4 Mg Dspk 4 MG PO DIRECTED PRN for COPD Flare up, #1 DSPK 0 Refills Per Pharmacist direction Duke Chacon MD April 10, 2018 11:10
== END 2018-04-10 12:39 | disposition home or self-care (01) | DRG 391 ==
LOC: NEPC 00:18 → NEDA 04:26 → OBSVTOIN 09:58 → N04B 11:55
PROVIDERS: ADMIT Internal Medicine; ATTEND Internal Medicine
PROC: 5A1D70Z Performance of Urinary Filtration, Intermittent, Less than 6 Hours Per Day (ICD-10-PCS; 2018-04-05)
PROC: 0DBN8ZX Excision of Sigmoid Colon, Via Natural or Artificial Opening Endoscopic, Diagnostic (ICD-10-PCS; 2018-04-06)
PROC: 0DBP8ZX Excision of Rectum, Via Natural or Artificial Opening Endoscopic, Diagnostic (ICD-10-PCS; 2018-04-06)
PROC: 0DBL8ZX Excision of Transverse Colon, Via Natural or Artificial Opening Endoscopic, Diagnostic (ICD-10-PCS; 2018-04-06)
PROC: 3E1M39Z Irrigation of Peritoneal Cavity using Dialysate, Percutaneous Approach (ICD-10-PCS; 2018-04-06)
PROC: 0DB58ZX Excision of Esophagus, Via Natural or Artificial Opening Endoscopic, Diagnostic (ICD-10-PCS; principal; 2018-04-06 16:15)
PROC: 0DB68ZX Excision of Stomach, Via Natural or Artificial Opening Endoscopic, Diagnostic (ICD-10-PCS; 2018-04-06 16:15)
DX: K52.9 Noninfective gastroenteritis and colitis, unspecified (principal); K65.9 Peritonitis, unspecified; N18.6 End stage renal disease; E11.22 Type 2 diabetes mellitus with diabetic chronic kidney disease; Z79.4 Long term (current) use of insulin; I12.0 Hypertensive chronic kidney disease with stage 5 chronic kidney disease or end stage renal disease; Z99.2 Dependence on renal dialysis; K29.70 Gastritis, unspecified, without bleeding; K21.0 Gastro-esophageal reflux disease with esophagitis; R11.2 Nausea with vomiting, unspecified; E87.6 Hypokalemia; D12.3 Benign neoplasm of transverse colon; D12.8 Benign neoplasm of rectum; J44.9 Chronic obstructive pulmonary disease, unspecified; I25.10 Atherosclerotic heart disease of native coronary artery without angina pectoris; Z95.5 Presence of coronary angioplasty implant and graft; I25.2 Old myocardial infarction; E78.5 Hyperlipidemia, unspecified; E83.52 Hypercalcemia; Z79.02 Long term (current) use of antithrombotics/antiplatelets; Z87.891 Personal history of nicotine dependence
CPT/HCPCS: 36415; 36600; 74176; 80048; 80053; 82010; 82306; 82805; 82948; 83036; 83735; 83970; 84100; 84484; 85025; 85027; 86850; 86900; 86901; 87070; 87205; 87328; 87329; 87338; 87493; 87506; 88305; 88312; 89051; 90935; 93005; 96360; 96372; 96374; 96375; C9113; J0360; J0780; J1580; J1644; J1815; J2370; J2550; J2765; J2997; J7040; Q0169; Q4081; Q9963

== ENCOUNTER 2018-05-13 12:22 | Day surgery (SDC) | payer OTHER ==
[~2018-05-13 12:22] MED LIST changes: +ASPI81TA23 PO; -BLOOD GLUCOSE M1 KIT; -BMP; -COMPRESSOR NEBU1 MIS; -LEVA500T33 PO; -MEDR4PAK PO; +PANT40TA3 PO; -PEN29MIS SQ; +ZOFR4TAB3 SL; -[UNRECOGNIZED DRUG - CODE]
[2018-05-13 12:55] VITALS: BP 163/85; PULSE 95; RESP 18; TEMP 98.4; O2SAT 95
[2018-05-13] MEDS ORDERED: LIDOCAINE 1%/EPINEPHrine 1:100,000 SOLN 30 ML VIAL ONE (14:40)
[2018-05-13] MEDS ORDERED: SODIUM BICARBONATE 8.4% INJ 50 ML ONE (14:55)
[2018-05-13 15:10] VITALS: BP 185/96; PULSE 72; RESP 16; TEMP 97.8; O2SAT 97
--- NOTE | 2018-05-13 15:35 | RADRPT ---
EXAM DATE: 05/13/2018 3:19 PM EDT AGE/SEX: 52 years / Female INDICATIONS: Patient presents with end-stage renal disease in need of dialysis catheter removal due to peritoneal catheter access. CLINICAL DATA: This is the patient's subsequent encounter. Patient reports that signs and symptoms h ave been present for 2 months and indicates a pain score of 0/10. MEDICAL/SURGICAL HISTORY: . [place], CAD, HTN, DM, ESRD, COPD . PD catheter placement, [place], Cardi ac stents, COMPARISON: No prior exams available for comparison. IMAGE SERIES: 0 ACCESS SITE: DEVICE(S): . . PROCEDURE: 1. PermaCath removal. The risks, benefits and alternatives to the procedure were explained and verbal and written consent w as obtained. The site was prepped in sterile fashion. Full sterile technique was used, including ca p, mask, sterile gloves and gown and a large sterile sheet. Hand hygiene and 2% chlorhexidine and/or betadine/alcohol prep was utilized per protocol for cutaneous antisepsis. The skin and subcutaneous tissues were infiltrated with local anesthetic solution. The tract was anesthetized with 1% Lidocaine using. The Permacath was dissected from the subcutaneou s tissues and easily removed in one piece. Manual pressure was applied to the venotomy site until he mostasis was obtained. Sterile dressing was applied. The patient tolerated the procedure well and there were no complications. CONCLUSION: Uncomplicated Permacath removal. Electronically signed by: Rhett Ray MD 05/13/2018 3:34 PM EDT
== END 2018-05-13 15:20 | disposition home or self-care (01) ==
LOC: HROP 12:22 → HRIP 12:23 → HROP 15:20
PROVIDERS: ATTEND Internal Medicine Nephrology
DX: Z49.01 Encounter for fitting and adjustment of extracorporeal dialysis catheter (principal); N18.6 End stage renal disease; J44.9 Chronic obstructive pulmonary disease, unspecified; I25.10 Atherosclerotic heart disease of native coronary artery without angina pectoris; I25.2 Old myocardial infarction; I12.0 Hypertensive chronic kidney disease with stage 5 chronic kidney disease or end stage renal disease; Z95.5 Presence of coronary angioplasty implant and graft
CPT/HCPCS: 36589

== ENCOUNTER 2018-07-25 10:38 | Inpatient (IN) ==
--- NOTE | 2018-07-25 11:20 | ED ---
HPI General Chief complaint: Nausea/Vomiting/Diarrhea Stated complaint: Vomitting/diarrhea Time Seen by Provider: 07/25/18 10:58 Source: patient Mode of arrival: ambulatory Limitations: no limitations History of Present Illness HPI Narrative: 53-year-old female complaint of nausea vomiting diarrhea. Patient has history of hypertension, COPD, hyperlipidemia, CAD, end-stage renal disease on peritoneal dialysis daily. Patient states that she is not having nausea vomiting diarrhea and abdominal cramping 2 days ago. Patient states the symptoms got better yesterday and get worse again this morning. Patient states that she has abdominal cramping only with vomiting. Patient denies abdominal pain now. Patient states that she is unable to keep any medication down this morning. Related Data Home Medications Medication Instructions Recorded Confirmed carvedilol [Coreg] 12.5 mg PO BID 07/25/18 07/25/18 clonidine HCl 0.1 mg PO TID 07/25/18 07/25/18 levothyroxine 50 mcg PO DAILY 07/25/18 07/25/18 vit B comp no.2-wsdjx-E-biotin 1 tab PO DAILY 07/25/18 07/25/18 [[employer]-Gurjit Rx] Allergies Allergy/AdvReac Type Severity Reaction Status Date / Time cephalexin Allergy Severe Abdominal Verified 07/25/18 11:03 Pain Review of Systems ROS: all other systems reviewed are negative PMFSH Social History Social History Substance History: No History of Abuse and Active Abuse Smoking Status: Never smoker How Often Do You Have a Drink Containing Alcohol: Never Recent Travel in [facility] within the Last 8 Weeks: No Recent Out of Country Travel within the Last 8 Weeks: No Immunization History Tetanus Immunization: Unsure Exam Narrative Exam Narrative: GENERAL: Well-nourished, well-developed patient. SKIN: Focused skin assessment warm/dry. HEAD: Normocephalic. EYES: No scleral icterus. No injection or drainage. NECK: Supple, trachea midline. No JVD or lymphadenopathy. CARDIOVASCULAR: Regular rate and rhythm without murmurs, gallops, or rubs. RESPIRATORY: Breath sounds equal bilaterally. No accessory muscle use. GASTROINTESTINAL: Abdomen soft, non-tender, nondistended. MUSCULOSKELETAL: No cyanosis, or edema. BACK: Nontender without obvious deformity. No CVA tenderness. Course Initial Documented Vital Signs Temperature 97.3 F L 09/09/18 10:48 Pulse Rate 76 07/25/18 10:48 Respiratory Rate 18 07/25/18 10:48 Blood Pressure 241/111 H 07/25/18 10:48 Pulse Oximetry 100 07/25/18 10:48 Last Documented Vital Signs Temperature 97.3 F L 07/25/18 10:48 Pulse Rate 78 07/25/18 11:58 Respiratory Rate 18 07/25/18 11:58 Blood Pressure 229/109 H 07/25/18 11:58 Pulse Oximetry 97 07/25/18 11:58 Medical Decision Making MDM Narrative Medical decision making narrative: 53-year-old female with intermittent nausea vomiting diarrhea abdominal cramping for the past 3 days. Patient has history of end-stage renal disease on peritoneal dialysis daily. Normal saline solution 500 cc IV bolus. Patient has history of not responding to Zofran in the past. Phenergan 25 mg IM. Reglan 10 mg IV. Benadryl 25 mg IV. Potassium 20 mEq IV given. Labetalol 10 mg IV 2. 1:20 PM. Reexamination patient still had persistent nausea vomiting and elevated blood pressure. Patient will be admitted. Medical Screen Exam Complete: Yes Emergency Medical Condition: Yes Differential Diagnosis Differential Diagnosis: Differential diagnosis including iritis, dehydration, electrolyte imbalance, colitis, gastritis, obstruction. Lab Data Lab results reviewed: Yes I reviewed the patient's lab results. Result diagrams: 07/25/18 11:32 07/25/18 11:32 Lab Results 07/25/18 07/25/18 Range/Units 11:32 11:32 WBC 9.0 (4.0-11.0) th/mm3 RBC 4.70 (4.00-5.30) mil/mm3 Hgb 14.5 (11.6-15.3) gm/dL Hct 41.5 (35.0-46.0) % MCV 88.2 (80.0-100.0) fL MCH 30.9 (27.0-34.0) pg MCHC 35.0 (32.0-36.0) % RDW 16.9 (11.6-17.2) % Plt Count 208 (150-450) th/mm3 MPV 9.0 (7.0-11.0) fL Neut % (Auto) 79.6 H (16.0-70.0) % Lymph % (Auto) 10.8 (9.0-44.0) % [place] % (Auto) 8.2 H (0.0-8.0) % Eos % (Auto) 0.8 (0.0-4.0) % Baso % (Auto) 0.6 (0.0-2.0) % Neut # (Auto) 7.2 (1.8-7.7) th/mm3 Lymph # (Auto) 1.0 (1.0-4.8) th/mm3 [place] # (Auto) 0.7 (0.0-0.9) th/mm3 Eos # (Auto) 0.1 (0.0-0.4) th/mm3 Baso # (Auto) 0.1 (0.0-0.2) th/mm3 WBC Differential . Differential Comment Auto diff final Sodium 136 (136-145) meq/L Potassium 3.2 L (3.5-5.1) meq/L Chloride 100 (98-107) meq/L Carbon Dioxide 22.8 (21.0-32.0) meq/L Anion Gap 13 (5-15) meq/L BUN 49 H (7-18) mg/dL Creatinine 5.25 H (0.50-1.00) mg/dL Estimated GFR 9 L (>89) mL/min Random Glucose 337 H (74-106) mg/dL Calcium 10.3 H (8.5-10.1) mg/dL Phosphorus 1.6 L (2.5-4.9) mg/dL Magnesium 1.5 (1.5-2.5) mg/dL Total Bilirubin 0.4 (0.2-1.0) mg/dL AST 62 H (15-37) U/L ALT 79 H (10-53) U/L Alkaline Phosphatase 197 H (45-117) U/L Total Protein 7.6 (6.4-8.2) g/dL Albumin 3.7 (3.4-5.0) g/dL Lipase 169 (73-393) U/L Discharge Plan Discharge Disposition Patient Disposition: 30 Still Patient Discharge Details Diagnosis: Gastroenteritis, Intractable vomiting with nausea, Hypertension, uncontrolled, Acute hypokalemia Physicians Team ED Provider: Gonzalo Dietrich Primary Care Provider: Shorty Balderas Rxs /Orders / Referrals /Forms Prescriptions: No Action clonidine HCl 0.1 mg Tablet 0.1 mg PO TID RF: 0 carvedilol [Coreg] 12.5 mg Tablet 12.5 mg PO BID RF: 0 vit B comp no.9-nokrx-Q-biotin [[employer]-Gurjit Rx] 1-60-300 mg-mg-mcg Tablet 1 tab PO DAILY RF: 0 levothyroxine 50 mcg Capsule 50 mcg PO DAILY RF: 0 Status ED Status: With Doctor
[2018-07-25] MEDS ORDERED: Labetalol HCl Inj 100 MG/20 ML Vial IV.PUSH ONE ×3 (11:57→14:28)
[2018-07-25] MEDS ORDERED: Sodium Chlor 0.9% Inj 500 ML IV.SIG SCH (12:00)
[2018-07-25 12:08] LABS: Baso # (Auto) 0.1 th/mm3 (0.0-0.2); Baso % (Auto) 0.6 % (0.0-2.0); Eos # (Auto) 0.1 th/mm3 (0.0-0.4); Eos % (Auto) 0.8 % (0.0-4.0); Hematocrit 41.5 % (35.0-46.0); Hemoglobin 14.5 gm/dL (11.6-15.3); Lymph % (Auto) 10.8 % (9.0-44.0); Mean Corpuscular Hemoglobin 30.9 pg (27.0-34.0); Mean Corpuscular Volume 88.2 fL (80.0-100.0); Mono # (Auto) 0.7 th/mm3 (0.0-0.9); Mono % (Auto) 8.2 % (0.0-8.0); Neut # (Auto) 7.2 th/mm3 (1.8-7.7); Neut % (Auto) 79.6 % (16.0-70.0); Platelet Count 208 th/mm3 (150-450); Red Cell Distribution Width 16.9 % (11.6-17.2)
[2018-07-25 12:22] LABS: Albumin 3.7 g/dL (3.4-5.0); Anion Gap 13 meq/L (5-15); Aspartate Aminotransferase 62 U/L (15-37); Blood Urea Nitrogen 49 mg/dL (7-18); Calcium 10.3 mg/dL (8.5-10.1); Carbon Dioxide 22.8 meq/L (21.0-32.0); Chloride 100 meq/L (98-107); Glomerular Filtration Rate 9 mL/min (>89); Glucose,Random 337 mg/dL (74-106); Lipase 169 U/L (73-393); Magnesium 1.5 mg/dL (1.5-2.5); Potassium 3.2 meq/L (3.5-5.1); Sodium 136 meq/L (136-145)
[2018-07-25 12:23] LABS: Alanine Aminotransferase 79 U/L (10-53)
[2018-07-25 12:26] LABS: Alkaline Phosphatase 197 U/L (45-117); Phosphorus 1.6 mg/dL (2.5-4.9); Total Protein 7.6 g/dL (6.4-8.2)
[2018-07-25] MEDS ORDERED: Potassium Chlor 20 mEq Premix 20 MEQ/100 ML PIGGYBACK IV.SIG ONE (13:18)
[2018-07-25] MEDS ORDERED: Bisacodyl 10 MG Supp RECTAL PRN (13:33)
[2018-07-25] MEDS ORDERED: Acetaminophen 325 MG Tablet PO PRN (13:33)
--- NOTE | 2018-07-25 15:07 | CT ---
EXAM DATE: 07/25/2018 3:00 PM EDT AGE/SEX: 53 years / Female INDICATIONS: Nausea vomiting CLINICAL DATA: This is the patient's initial encounter. Patient reports that signs and symptoms have been present for 3 days and indicates a pain score of 2/10. MEDICAL/SURGICAL HISTORY: Diabetes. Renal failure, chronic. None. RADIATION DOSE: 16.30 CTDI (mGy) [place] [facility] [place] 04/09/2018. . TECHNIQUE: Multiple contiguous axial images were obtained through the abdomen. Images were obtained using multiple row detector helical technique. Using automated exposure control and adjustment of the mA and/or kV according to patient size, radiation dose was kept as low as reasonably achievable to o btain optimal diagnostic quality images. DICOM format image data is available electronically for rev iew and comparison. FINDINGS: Lower Lungs: The visualized lower lungs are clear. Coronary atherosclerotic disease Liver: The liver has a homogeneous density without space-occupying lesion. There is no dilation of th e biliary tree. Cholecystectomy clips Spleen: Homogeneous density without enlargement. Pancreas: Unremarkable without mass or calcification. Kidneys: Normal in size and shape. No evidence of mass or hydronephrosis. Adrenal Glands: Unremarkable. Aorta: The aorta and proximal iliac vessels are grossly unremarkable without aneurysmal dilation. Bowel/Mesentery: The bowel loops are grossly unremarkable. The cecum and sigmoid colon have a normal configuration. Suspected diverticulum from the second portion of the duodenum . Peritoneal catheter Abdominal Wall: Intact. Retroperitoneum: No evidence of adenopathy in the retrocrural, para-aortic, or deep pelvic regions. Bladder: Contours are smooth. Reproductive Organs: No abnormal masses or calcifications seen. Inguinal: The inguinal region is unremarkable without evidence of adenopathy. Bony Structures: Unremarkable. CONCLUSION: 1. No evidence of bowel obstruction. Peritoneal catheter in good position coiled within the pelvis. Clips suggesting cholecystectomy. Dense atherosclerotic disease in the coronary vessels. 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 Electronically signed by: Gasper Reis MD 07/25/2018 3:05 PM EDT
[2018-07-25] MEDS ORDERED: Heparin 10,000 UNITS/10 ML Vial (for IV use) OTHER PRN (15:13)
[2018-07-25 16:40] LABS: Troponin I 0.04 ng/mL (0.02-0.05)
[2018-07-25] MEDS: Pantoprazole Inj 40 MG Vial IV.PUSH SCH (16:43)
[2018-07-25] MEDS ORDERED: hydrALAZINE 50 MG Tablet PO PRN (16:51)
[2018-07-25] MEDS ORDERED: Naloxone Inj 0.4 MG/ML Vial IV.PUSH PRN (16:52)
[2018-07-25] MEDS ORDERED: Morphine Inj 4 MG/ML Vial IV.PUSH PRN ×2 (16:52)
[2018-07-25] MEDS ORDERED: Morphine Sulfate Inj 2 MG/ML Vial IV.PUSH PRN (16:52)
--- NOTE | 2018-07-25 16:59 | P.HPIM ---
History of Present Illness Service: [facility] Primary Care Physician: Shorty Balderas MD Chief Complaint: NAUSEA AND VOMITING AND DIARRHEA History of Present Illness: Patient is a 53-year-old female who comes in complaining of nausea and vomiting and diarrhea. Patient has an extensive past medical history including hypertension, COPD, hyperlipidemia, coronary artery disease, end- stage renal disease on peritoneal dialysis, and hypothyroidism. Patient states that she been having nausea and vomiting and diarrhea and abdominal cramping for the past 2 days. States it gets got better yesterday and got worse again this morning. Patient states that she had abdominal cramping only with vomiting. Denies any abdominal pain now. States she is she has been unable to keep any medications down this morning of note patient also smoked some marijuana last night possible cyclic vomiting syndrome from marijuana. Family history is positive for hypertension - Diagnosis (1) Hypothyroidism (2) Intractable cyclical vomiting syndrome (3) Acute hypokalemia (4) Gastroenteritis (5) Hypertension, uncontrolled (6) Intractable vomiting with nausea Review of Systems All other systems reviewed negative except as stated in HPI PMFSH - History History Provided By: Patient - Medical History Medical History: Medical History (Last Updated 07/25/18 @ 16:36 by Monster Liu DO) COPD (chronic obstructive pulmonary disease) Coronary artery disease End-stage renal disease on peritoneal dialysis History of myocardial infarction Hyperlipidemia Hypertension Hypothyroidism Marijuana use Peritoneal dialysis catheter in place Tobacco abuse - Surgical History Surgical History: Surgical History (Last Updated 07/25/18 @ 16:35 by Monster Liu DO) H/O heart artery stent History of appendectomy History of cholecystectomy - Family History Family History: Family History (Last Updated 07/25/18 @ 16:34 by Monster Liu DO) Other Family history of hypertension - Social History I have reviewed the patient's Social History: Yes - Tobacco History Tobacco Use In Past 30 Days: Yes (marijuana ,last used last night) Smoking Status: Smoker, status unknown - Alcohol History How Often Do You Have a Drink Containing Alcohol: Never - Substance Use History Substance History: No History of Abuse, Active Abuse - Substance Use Type Marijuana Route Used: Inhalation Last Used: 07/24/18 Reason for Use: Get High - Travel History History of Recent Travel: No Recent Travel in the [place] Within the Last 8 Weeks: No Recent Travel Out of the Country Within the Last 8 Weeks: No - Immunization History Tetanus Immunization: Unsure Medications and Allergies Active Medications: Active Medications Acetaminophen (Tylenol) 650 mg PO Q4H PRN PRN Reason: Temp > 100.4 Al Hydroxide/Mg Hydroxide (Milk Of Magnesia Liq) 30 ml PO Q12H PRN PRN Reason: Mild Constipation Bisacodyl (Dulcolax Supp) 10 mg RECTAL DAILY PRN PRN Reason: SEVERE CONSITIPATION Carvedilol (Coreg) 12.5 mg PO BID ANASTACIO Clonidine HCl (Catapres) 0.1 mg PO TID ANASTACIO Clonidine HCl (Catapress-Tts 0.2 Mg Patch.7d) 1 patch T-DERMAL Q7D ANASTACIO Clonidine HCl (Catapres) 0.1 mg PO Q6H PRN PRN Reason: HYPERTENSION Heparin Sodium (Porcine) (Heparin Inj) 1,000 units OTHER WITH DIALYSIS PRN PRN Reason: SEE LABEL COMMENTS Sodium Chloride (Ns Inj) 500 mls @ 0 mls/hr IV.SIG BOLUS ANASTACIO Last Infusion: 07/25/18 15:46 Dose: Infused Sodium Chloride (Ns Inj) 1,000 mls @ 100 mls/hr IV.CONT .Q10H ANASTACIO Lactulose (Lactulose Liq) 30 ml PO DAILY PRN PRN Reason: SEVERE CONSITIPATION Levothyroxine Sodium (Synthroid) 50 mcg PO DAILY@0600 ANASTACIO Metoclopramide HCl (Reglan Inj) 10 mg IV.PUSH Q6HR PRN; Protocol PRN Reason: NAUSEA OR VOMITING Pantoprazole Sodium (Protonix Inj) 40 mg IV.PUSH Q12H [facility] Patch Removal (Remove Old Patch) 1 each T-DERMAL Q7D ANASTACIO Senna/Docusate Sodium (Gin-Colace) 1 tab PO BID ANASTACIO Sennosides (Senokot) 17.2 mg PO Q12H PRN PRN Reason: Moderate Constipation Sodium Chloride (Ns Flush) 10 ml IV.FLUSH UNSCH PRN PRN Reason: SEE LABEL COMMENTS Vitamin B Complex/Vit C/Folic Acid (Nephrocaps) 1 tab PO DAILY [facility] Allergies Allergy/AdvReac Type Severity Reaction Status Date / Time cephalexin Allergy Severe Abdominal Verified 07/25/18 11:03 Pain Home Medications Medication Instructions Recorded Confirmed Type carvedilol [Coreg] 12.5 mg PO BID 07/25/18 07/25/18 History clonidine HCl 0.1 mg PO TID 07/25/18 07/25/18 History levothyroxine 50 mcg PO DAILY 07/25/18 07/25/18 History vit B comp no.7-ypmpd-L-biotin 1 tab PO DAILY 07/25/18 07/25/18 History [[employer]-Gurjit Rx] Exam Vital signs: Vital Signs 07/25/18 10:48 07/25/18 11:02 07/25/18 11:58 Temperature 97.3 F L Pulse Rate 76 87 78 Respiratory Rate 18 18 Blood Pressure 241/111 H 245/109 H 229/109 H Pulse Oximetry 100 97 07/25/18 13:33 07/25/18 13:38 07/25/18 13:42 Temperature Pulse Rate 76 91 H Respiratory Rate 18 Blood Pressure 187/88 H 230/102 H Pulse Oximetry 97 97 Intake & Output 07/24/18 07/25/18 07/25/18 18:59 06:59 18:59 Intake Total 600 / 600 Output Total 250 / 250 Balance 350 / 350 Weight 95.254 kg Intake: IV 600 / 600 KCl 20 mEq Premix Inj 20 meq In 100 / 100 100 ml @ 50 mls/hr IV.SIG ONCE ONE Rx#:[id number] NS Inj 500 ML @ Wide Open IV. 500 / 500 SIG BOLUS ANASTACIO Rx#:[id number] Output: Emesis 250 / 250 Other: # Emeses 1 Narrative: GENERAL: Awake alert and oriented 3 talkative and cooperative appears to be in some mild distress SKIN: Warm and dry. HEAD: Atraumatic. Normocephalic. EYES: Pupils equal and round. No scleral icterus. No injection or drainage. EOMI ENT: No nasal bleeding or discharge. Mucous membranes pink and moist. Tongue is midline NECK: Trachea midline. No JVD. Supple CARDIOVASCULAR: Regular rate and rhythm. S1-S2 no S3 or S4 RESPIRATORY: No accessory muscle use. Clear to auscultation. Breath sounds equal bilaterally. GASTROINTESTINAL: Abdomen soft, non-tender, nondistended. Hepatic and splenic margins not palpable. Peritoneal dialysis in place MUSCULOSKELETAL: Extremities without clubbing, cyanosis, or edema. No obvious deformities. NEUROLOGICAL: Awake and alert. No obvious cranial nerve deficits. Motor grossly within normal limits. Five out of 5 muscle strength in the arms and legs. Normal speech. PSYCHIATRIC: Appropriate mood and affect; insight and judgment normal. Results - Labs CBC & Chem 7: 07/25/18 11:32 07/25/18 11:32 Labs: Short CBC 07/25/18 Range/Units 11:32 WBC 9.0 (4.0-11.0) th/mm3 Hgb 14.5 (11.6-15.3) gm/dL Hct 41.5 (35.0-46.0) % Plt Count 208 (150-450) th/mm3 BMP 07/25/18 11:32 Sodium 136 Potassium 3.2 L Chloride 100 Carbon Dioxide 22.8 BUN 49 H Creatinine 5.25 H Calcium 10.3 H Liver Function 07/25/18 Range/Units 11:32 Total Bilirubin 0.4 (0.2-1.0) mg/dL AST 62 H (15-37) U/L ALT 79 H (10-53) U/L Alkaline Phosphatase 197 H (45-117) U/L Albumin 3.7 (3.4-5.0) g/dL - Imaging Impressions Abdomen/Pelvis CT 07/25/18 13:31 CONCLUSION: 1. No evidence of bowel obstruction. Peritoneal catheter in good position coiled within the pelvis. Clips suggesting cholecystectomy. Dense atherosclerotic disease in the coronary vessels. 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 Caprini VTE Risk Assessment Caprini VTE Risk Assessment: Moderate/High Risk (score >= 2) Caprini Risk Assessment Model: Point Value = 1 Point Value = 2 Point Value = 3 Point Value = 5 Age 41-60 Minor surgery BMI > 25 kg/m2 Swollen legs Varicose veins or History of unexplained or recurrent spontaneous Oral contraceptives or hormone replacement Sepsis (< 1 month) Serious lung disease, including pneumonia (< 1 month) Abnormal pulmonary function Acute myocardial infarction Congestive heart failure (< 1 month) History of inflammatory bowel disease Medical patient at bed rest Age 61-74 Arthroscopic surgery Major open surgery (> 45 min) Laparoscopic surgery (> 45 min) Malignancy Confined to bed (> 72 hours) Immobilizing plaster cast Central venous access Age >= 75 History of VTE Family history of VTE Factor V Leiden Prothrombin [id number] Lupus anticoagulant Anticardiolipin antibodies Elevated serum homocysteine Heparin-induced thrombocytopenia Other congenital or acquired thrombophilia Stroke (< 1 month) Elective arthroplasty Hip, pelvis, or leg fracture Acute spinal cord injury (< 1 month) Prophylaxis Regimen: Total Risk Factor Score Risk Level Prophylaxis Regimen 0-1 Low Early ambulation 2 Moderate Order ONE of the following: *Sequential Compression Device (SCD) *Heparin 5000 units SQ BID 3-4 Higher Order ONE of the following medications: *Heparin 5000 units SQ TID *Enoxaparin/Lovenox 40 mg SQ daily (WT < 150 kg, CrCl > 30 mL/min) *Enoxaparin/Lovenox 30 mg SQ daily (WT < 150 kg, CrCl > 10-29 mL/min) *Enoxaparin/Lovenox 30 mg SQ BID (WT < 150 kg, CrCl > 30 mL/min) AND/OR *Sequential Compression Device (SCD) 5 or more Highest Order ONE of the following medications: *Heparin 5000 units SQ TID (Preferred with Epidurals) *Enoxaparin/Lovenox 40 mg SQ daily (WT < 150 kg, CrCl > 30 mL/min) *Enoxaparin/Lovenox 30 mg SQ daily (WT < 150 kg, CrCl > 10-29 mL/min) *Enoxaparin/Lovenox 30 mg SQ BID (WT < 150 kg, CrCl > 30 mL/min) AND *Sequential Compression Device (SCD) Assessment and Plan - Assessment (1) Hypothyroidism Code(s): E03.9 - Hypothyroidism, unspecified Status: Chronic (2) Intractable cyclical vomiting syndrome Code(s): G43.A1 - Cyclical vomiting, intractable Status: Acute (3) Acute hypokalemia Code(s): E87.6 - Hypokalemia Status: Acute (4) Gastroenteritis Code(s): K52.9 - Noninfective gastroenteritis and colitis, unspecified Status : Acute (5) Hypertension, uncontrolled Code(s): I10 - Essential (primary) hypertension Status: Chronic (6) Intractable vomiting with nausea Code(s): R11.2 - Nausea with vomiting, unspecified Status: Acute - Plan Uncontrolled hypertension due to nausea and vomiting -We will Place Catapres patch on the patient since she is not able to keep anything down -Continue on home medications that she is able to keep down Try to restart her Coreg 12.5 twice daily Hydralazine 3 times daily Nausea and vomiting persistent and intractable Gastroenteritis -Continue on Reglan -Continue IV fluids -Possibly secondary to marijuana use with cyclic vomiting syndrome -Continue antiemetics -Ativan as needed for persistent nausea vomiting -CAT scan did not show any acute pathology Hypertension uncontrolled Worsened by the nausea and vomiting lives been persistent And inability to keep her medications down Place on Catapres patch -We will have as needed Catapres available also End-stage renal disease on peritoneal dialysis We will defer dialysis to nephrology Hopefully have peritoneal dialysis later today Hypothyroidism Resume Synthroid Check a TSH and a free T4 tomorrow Tobacco abuse recommend smoking cessation NicoDerm patch as needed Marijuana abuse Recommend cessation Can cause cyclic vomiting syndrome Ativan as needed DVT prophylaxis Continue on SCDs and YADY hose GI prophylaxis continue on IV Protonix History of coronary artery disease with stenting Continue on aspirin and Plavix History of hyperlipidemia had previously been on Lipitor Code Status: Full code Discussed Condition With: RN and patient and emergency room physician Discharge Planning: Pending improvement of the nausea and vomiting any ability to tolerate a diet (6) Intractable vomiting with nausea Qualifiers: Vomiting type: unspecified Qualified Code(s): R11.2 - Nausea with vomiting, unspecified
--- NOTE | 2018-07-25 19:15 | P.CONNP ---
History of Present Illness Service: Nephrology Consult date: 07/25/18 Reason for Consult: End-stage renal disease on peritoneal dialysis Primary Care Provider: Shorty Balderas MD Family Provider: No Primary Care Physician Chief Complaint: NAUSEA AND VOMITING AND DIARRHEA History of Present Illness: Patient is a 53-year-old white female with history of end-stage renal disease on hemodialysis, hypertension, hypothyroidism, she stated that she had diarrhea for the past 2 days, she also has nausea and vomiting and crampy abdomen, patient got dehydrated and decided to come to the hospital. Patient has been on peritoneal dialysis and has done her treatment last night, she follows with Dr. Balderas. Review of Systems Constitutional: Reports fatigue Gastrointestinal: Reports cramping, Reports loose stools, Reports nausea, Reports vomiting Musculoskeletal: Reports muscle weakness Neurologic: Reports weakness PMFSH - History History Provided By: Patient - Medical History Medical History: Medical History (Last Updated 07/25/18 @ 16:36 by Monster Liu DO) COPD (chronic obstructive pulmonary disease) Coronary artery disease End-stage renal disease on peritoneal dialysis History of myocardial infarction Hyperlipidemia Hypertension Hypothyroidism Marijuana use Peritoneal dialysis catheter in place Tobacco abuse - Surgical History Surgical History: Surgical History (Last Updated 07/25/18 @ 16:35 by Monster Liu DO) H/O heart artery stent History of appendectomy History of cholecystectomy - Family History Family History: Family History (Last Updated 07/25/18 @ 16:34 by Monster Liu DO) Other Family history of hypertension - Tobacco History Tobacco Use In Past 30 Days: Yes (marijuana ,last used last night) Smoking Status: Smoker, status unknown - Alcohol History How Often Do You Have a Drink Containing Alcohol: Never - Substance Use History Substance History: No History of Abuse, Active Abuse - Substance Use Type Marijuana Route Used: Inhalation Last Used: 07/24/18 Reason for Use: Get High - Travel History History of Recent Travel: No Recent Travel in the [place] Within the Last 8 Weeks: No Recent Travel Out of the Country Within the Last 8 Weeks: No - Immunization History Tetanus Immunization: Unsure Medications and Allergies Active Medications: Active Medications Acetaminophen (Tylenol) 650 mg PO Q4H PRN PRN Reason: Temp > 100.4 Al Hydroxide/Mg Hydroxide (Milk Of Magnesia Liq) 30 ml PO Q12H PRN PRN Reason: Mild Constipation Bisacodyl (Dulcolax Supp) 10 mg RECTAL DAILY PRN PRN Reason: SEVERE CONSITIPATION Carvedilol (Coreg) 12.5 mg PO BID ANASTACIO Clonidine HCl (Catapres) 0.1 mg PO TID ANASTACIO Clonidine HCl (Catapress-Tts 0.2 Mg Patch.7d) 1 patch T-DERMAL Q7D ANASTACIO Last Admin: 07/25/18 16:55 Dose: 1 patch Clonidine HCl (Catapres) 0.1 mg PO Q6H PRN PRN Reason: HYPERTENSION Heparin Sodium (Porcine) (Heparin Inj) 1,000 units OTHER WITH DIALYSIS PRN PRN Reason: SEE LABEL COMMENTS Hydralazine HCl (Apresoline) 50 mg PO Q8H PRN PRN Reason: SBP>180, DBP>95 Last Admin: 07/25/18 18:41 Dose: 50 mg Sodium Chloride (Ns Inj) 500 mls @ 0 mls/hr IV.SIG BOLUS ANASTACIO Last Infusion: 07/25/18 15:46 Dose: Infused Sodium Chloride (Ns Inj) 1,000 mls @ 100 mls/hr IV.CONT .Q10H [facility] Lactulose (Lactulose Liq) 30 ml PO DAILY PRN PRN Reason: SEVERE CONSITIPATION Levothyroxine Sodium (Synthroid) 50 mcg PO DAILY@0600 ANASTACIO Lorazepam (Ativan Inj) 1 mg IV.PUSH Q4H PRN PRN Reason: NAUSEA OR VOMITING Last Admin: 07/25/18 16:43 Dose: 1 mg Metoclopramide HCl (Reglan Inj) 10 mg IV.PUSH Q6HR PRN; Protocol PRN Reason: NAUSEA OR VOMITING Morphine Sulfate (Morphine Inj) 2 mg IV.PUSH Q3H PRN PRN Reason: PAIN 3-5; IF UABLE TO TAKE PO Morphine Sulfate (Morphine Inj) 4 mg IV.PUSH Q3H PRN PRN Reason: PAIN 6-10;IF UNABLE TO TAKE PO Morphine Sulfate (Morphine Inj) 4 mg IV.PUSH Q3H PRN PRN Reason: BREAKTHROUGH PAIN Naloxone HCl (Narcan Inj) 0.4 mg IV.PUSH UNSCH PRN PRN Reason: SEE LABEL COMMENTS Oxycodone HCl (Roxicodone) 5 mg PO Q4H PRN PRN Reason: PAIN SCALE 3 TO 5 Oxycodone HCl (Roxicodone) 10 mg PO Q4H PRN PRN Reason: PAIN SCALE 6 TO 10 Pantoprazole Sodium (Protonix Inj) 40 mg IV.PUSH Q12H [facility] Last Admin: 07/25/18 16:43 Dose: 40 mg Patch Removal (Remove Old Patch) 1 each T-DERMAL Q7D [facility] Senna/Docusate Sodium (Gin-Colace) 1 tab PO BID [facility] Sennosides (Senokot) 17.2 mg PO Q12H PRN PRN Reason: Moderate Constipation Sodium Chloride (Ns Flush) 10 ml IV.FLUSH UNSCH PRN PRN Reason: SEE LABEL COMMENTS Vitamin B Complex/Vit C/Folic Acid (Nephrocaps) 1 tab PO DAILY [facility] Allergies Allergy/AdvReac Type Severity Reaction Status Date / Time cephalexin Allergy Severe Abdominal Verified 07/25/18 11:03 Pain Home Medications Medication Instructions Recorded Confirmed Type carvedilol [Coreg] 12.5 mg PO BID 07/25/18 07/25/18 History clonidine HCl 0.1 mg PO TID 07/25/18 07/25/18 History levothyroxine 50 mcg PO DAILY 07/25/18 07/25/18 History vit B comp no.5-bvkwy-G-biotin 1 tab PO DAILY 07/25/18 07/25/18 History [[employer]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 Rx] Exam Vital signs: Vital Signs 07/25/18 10:48 07/25/18 11:02 07/25/18 11:58 Temperature 97.3 F L Pulse Rate 76 87 78 Respiratory Rate 18 18 Blood Pressure 241/111 H 245/109 H 229/109 H Pulse Oximetry 100 97 07/25/18 13:33 07/25/18 13:38 07/25/18 13:42 Temperature Pulse Rate 76 91 H Respiratory Rate 18 Blood Pressure 187/88 H 230/102 H Pulse Oximetry 97 97 07/25/18 16:52 07/25/18 17:05 07/25/18 17:32 Temperature Pulse Rate 80 78 78 Respiratory Rate 18 18 Blood Pressure 211/98 H 193/95 H 184/88 H Pulse Oximetry Intake & Output 07/25/18 07/25/18 07/26/18 06:59 18:59 06:59 Intake Total 600 / 600 Output Total 250 / 250 Balance 350 / 350 Weight 95.254 kg Intake: IV 600 / 600 KCl 20 mEq Premix Inj 20 meq In 100 / 100 100 ml @ 50 mls/hr IV.SIG ONCE ONE Rx#:[id number] NS Inj 500 ML @ Wide Open IV. 500 / 500 SIG BOLUS ANASTACIO Rx#:[id number] Output: Emesis 250 / 250 Other: # Emeses 1 Narrative: Physical exam General: Patient feels tired answers questions appropriately Neck: Supple JVD not elevated Chest and lung: Clear to auscultation no rales CVS: Regular rate and rhythm no obvious murmurs Abdomen: Peritoneal dialysis catheter in place dressing in place there is no drainage bowel sounds are present Extremities: No edema Neurologically alert oriented 3 Results - Lab Results 07/25/18 11:32 07/25/18 11:32 Most recent lab results Calcium 10.3 mg/dL (8.5-10.1) H 07/25/18 11:32 Phosphorus 1.6 mg/dL (2.5-4.9) L 07/25/18 11:32 Magnesium 1.5 mg/dL (1.5-2.5) 07/25/18 11:32 Assessment and Plan - Assessment (1) End stage renal disease Code(s): N18.6 - End stage renal disease Status: Acute (2) Gastroenteritis Code(s): K52.9 - Noninfective gastroenteritis and colitis, unspecified Status : Acute (3) Intractable vomiting with nausea Code(s): R11.2 - Nausea with vomiting, unspecified Status: Acute (4) Hypertension, uncontrolled Code(s): I10 - Essential (primary) hypertension Status: Chronic (5) Acute hypokalemia Code(s): E87.6 - Hypokalemia Status: Acute - Plan Peritoneal dialysis to resume and orders has been placed to continue with peritoneal dialysis at night patient uses 2.5% 5 cycles Monitor BMP Intake and output Monitor blood pressure: She received labetalol and is slowly improving Potassium was replaced earlier, replace magnesium magnesium sulfate 1 g ordered She follows with Dr. Balderas will notify his service to follow (3) Intractable vomiting with nausea Qualifiers: Vomiting type: unspecified Qualified Code(s): R11.2 - Nausea with vomiting, unspecified
[2018-07-25] MEDS: Sod Chloride 0.9% Inj 1,000 ML IV.CONT SCH ×2 (19:21→23:50)
[2018-07-25] MEDS ORDERED: Mag Sulf 1 gm/100 ml Premix 100 ML IV.SIG ONE (19:45)
[2018-07-25 21:35] LABS: Troponin I 0.04 ng/mL (0.02-0.05)
[2018-07-25] MEDS: Carvedilol 12.5 MG Tablet PO SCH (23:11)
[2018-07-25] MEDS: Senna/Docusate Sodium 8.6/50 MG Tablet PO SCH (23:11)
[2018-07-26] MEDS: Pantoprazole Inj 40 MG Vial IV.PUSH SCH (05:15)
[2018-07-26] MEDS ORDERED: Levothyroxine 50 MCG Tablet PO SCH (06:00)
[2018-07-26 07:33] LABS: Baso # (Auto) 0.1 th/mm3 (0.0-0.2); Baso % (Auto) 0.6 % (0.0-2.0); Eos # (Auto) 0.1 th/mm3 (0.0-0.4); Eos % (Auto) 1.5 % (0.0-4.0); Hematocrit 36.1 % (35.0-46.0); Hemoglobin 12.5 gm/dL (11.6-15.3); Lymph # (Auto) 2.1 th/mm3 (1.0-4.8); Lymph % (Auto) 24.1 % (9.0-44.0); Mean Corpuscular HGB Conc 34.5 % (32.0-36.0); Mean Corpuscular Hemoglobin 30.8 pg (27.0-34.0); Mean Corpuscular Volume 89.1 fL (80.0-100.0); Mean Platelet Volume 9.5 fL (7.0-11.0); Mono # (Auto) 0.8 th/mm3 (0.0-0.9); Mono % (Auto) 9.6 % (0.0-8.0); Neut # (Auto) 5.6 th/mm3 (1.8-7.7); Neut % (Auto) 64.2 % (16.0-70.0); Platelet Count 183 th/mm3 (150-450); Red Blood Count 4.05 mil/mm3 (4.00-5.30); White Blood Count 8.7 th/mm3 (4.0-11.0)
[2018-07-26 08:09] LABS: Alanine Aminotransferase 46 U/L (10-53); Albumin 2.6 g/dL (3.4-5.0); Alkaline Phosphatase 134 U/L (45-117); Anion Gap 13 meq/L (5-15); Aspartate Aminotransferase 32 U/L (15-37); Blood Urea Nitrogen 46 mg/dL (7-18); Calcium 9.2 mg/dL (8.5-10.1); Carbon Dioxide 20.3 meq/L (21.0-32.0); Chloride 107 meq/L (98-107); Free T4 (Free Thyroxine) 0.66 ng/dL (0.76-1.46); Glomerular Filtration Rate 10 mL/min (>89); Glucose,Random 225 mg/dL (74-106); Magnesium 1.8 mg/dL (1.5-2.5); Phosphorus 3.9 mg/dL (2.5-4.9); Sodium 140 meq/L (136-145); Total Protein 6.1 g/dL (6.4-8.2)
[2018-07-26 08:13] LABS: Potassium 3.3 meq/L (3.5-5.1)
[2018-07-26] MEDS: Carvedilol 12.5 MG Tablet PO SCH (08:23)
[2018-07-26] MEDS: Senna/Docusate Sodium 8.6/50 MG Tablet PO SCH (08:23)
[2018-07-26] MEDS ORDERED: Vitamin B Complex/Vit C/Folic Tablet PO SCH (09:00)
[2018-07-26] MEDS: Sod Chloride 0.9% Inj 1,000 ML IV.CONT SCH (09:07)
--- NOTE | 2018-07-26 09:08 | P.PNNP ---
Subjective Interval history: Nausea and vomiting has resolved today. No abdominal tenderness. PD last night tolerated well. <Shira Frank - Last Filed: 07/26/18 09:01> Physical Exam Vital signs: Vital Signs 07/25/18 10:48 07/25/18 11:02 07/25/18 11:58 Temperature 97.3 F L Pulse Rate 76 87 78 Respiratory Rate 18 18 Blood Pressure 241/111 H 245/109 H 229/109 H Pulse Oximetry 100 97 07/25/18 13:33 07/25/18 13:38 07/25/18 13:42 Temperature Pulse Rate 76 91 H Respiratory Rate 18 Blood Pressure 187/88 H 230/102 H Pulse Oximetry 97 97 07/25/18 16:52 07/25/18 17:05 07/25/18 17:32 Temperature Pulse Rate 80 78 78 Respiratory Rate 18 18 Blood Pressure 211/98 H 193/95 H 184/88 H Pulse Oximetry 07/25/18 20:00 07/25/18 20:04 07/25/18 20:28 Temperature Pulse Rate 77 89 98 H Respiratory Rate 17 20 Blood Pressure 193/91 H 189/88 H Pulse Oximetry 98 98 07/25/18 20:40 07/25/18 21:01 07/25/18 22:00 Temperature 98.1 F Pulse Rate 98 H 91 H 83 Respiratory Rate 17 17 18 Blood Pressure 137/65 122/59 L 128/68 Pulse Oximetry 98 98 98 07/26/18 00:00 07/26/18 04:00 07/26/18 07:58 Temperature 98.0 F 98.0 F Pulse Rate 60 77 Respiratory Rate 18 17 15 Blood Pressure 138/58 L 135/63 Pulse Oximetry 97 97 Intake & Output 07/25/18 07/26/18 07/26/18 18:59 06:59 18:59 Intake Total 600 / 600 1100 / 1100 Output Total 250 / 250 Balance 350 / 350 1100 / 1100 Weight 95.254 kg 100.4 kg Intake: IV 600 / 600 1100 / 1100 NS Inj 1,000 ML @ 100 mls/hr IV 1000 / 1000 .CONT .Q10H ANASTACIO Rx#:[id number] Magnesium Sulfate 1 gm/D5W 100 100 / 100 ml Premix 100 ML @ 100 mls/hr IV.SIG ONCE ONE Rx#:[id number] KCl 20 mEq Premix Inj 20 meq In 100 / 100 100 ml @ 50 mls/hr IV.SIG ONCE ONE Rx#:[id number] NS Inj 500 ML @ Wide Open IV. 500 / 500 SIG BOLUS ANASTACIO Rx#:[id number] Output: Emesis 250 / 250 Other: # Voids 3 Date of Last Bowel Movement 07/25/18 07/25/18 # Emeses 1 Narrative: General: Alert and oriented. NAD. Neck: Supple, negative JVD Chest and lung: Clear to auscultation no rales CVS: Regular rate and rhythm no obvious murmurs Abdomen: Peritoneal dialysis catheter in place dressing in place there is no drainage bowel sounds are present. No abdominal tenderness on palpation. Extremities: No edema, Move all extremities. <Shira Frank - Last Filed: 07/26/18 09:01> Assessment and Plan - Assessment (1) End stage renal disease Code(s): N18.6 - End stage renal disease Status: Acute Plan: Peritoneal dialysis patient. Plan Continue Peritoneal dialysis nightly uses 2.5% 5 cycles Monitor BMP Intake and output Hypokalemia will order replacement (2) Gastroenteritis Code(s): K52.9 - Noninfective gastroenteritis and colitis, unspecified Status : Acute Plan: Nausea and vomiting has improved. On Protonix BID NPO requesting something to eat. (3) Intractable vomiting with nausea Code(s): R11.2 - Nausea with vomiting, unspecified Status: Acute Qualifiers: Vomiting type: unspecified Qualified Code(s): R11.2 - Nausea with vomiting , unspecified (4) Hypertension, uncontrolled Code(s): I10 - Essential (primary) hypertension Status: Chronic Plan: Well controlled this morning. Continue current therapy. (5) Acute hypokalemia Code(s): E87.6 - Hypokalemia Status: Acute Plan: Potassium level at 3.2, replacement ordered. <Shira Frank - Last Filed: 07/26/18 09:01> - Assessment (1) End stage renal disease Code(s): N18.6 - End stage renal disease Status: Acute Plan: Patient seen and examined, agree with above. Continue same PD. K is low, will replace. (2) Gastroenteritis Code(s): K52.9 - Noninfective gastroenteritis and colitis, unspecified Status : Acute (3) Intractable vomiting with nausea Code(s): R11.2 - Nausea with vomiting, unspecified Status: Acute Qualifiers: Vomiting type: unspecified Qualified Code(s): R11.2 - Nausea with vomiting , unspecified (4) Hypertension, uncontrolled Code(s): I10 - Essential (primary) hypertension Status: Chronic (5) Acute hypokalemia Code(s): E87.6 - Hypokalemia Status: Acute <Esteban Balderas Q - Last Filed: 08/05/18 09:37>
[2018-07-26] MEDS ORDERED: Potassium Chlor 20 mEq Premix 20 MEQ/100 ML PIGGYBACK IV.SIG ONE (10:00)
--- NOTE | 2018-07-26 10:07 | P.PNIM ---
Subjective Interval history: f/u; gastroenteritis in no acute distress. abdominal pain, nausea/vomiting and diarrhea-all have resolved and now she wants to eat. no fever. d/w at the bedside. Physical Exam Vital signs: Vital Signs 07/25/18 10:48 07/25/18 11:02 07/25/18 11:58 Temperature 97.3 F L Pulse Rate 76 87 78 Respiratory Rate 18 18 Blood Pressure 241/111 H 245/109 H 229/109 H Pulse Oximetry 100 97 07/25/18 13:33 07/25/18 13:38 07/25/18 13:42 Temperature Pulse Rate 76 91 H Respiratory Rate 18 Blood Pressure 187/88 H 230/102 H Pulse Oximetry 97 97 07/25/18 16:52 07/25/18 17:05 07/25/18 17:32 Temperature Pulse Rate 80 78 78 Respiratory Rate 18 18 Blood Pressure 211/98 H 193/95 H 184/88 H Pulse Oximetry 07/25/18 20:00 07/25/18 20:04 07/25/18 20:28 Temperature Pulse Rate 77 89 98 H Respiratory Rate 17 20 Blood Pressure 193/91 H 189/88 H Pulse Oximetry 98 98 07/25/18 20:40 07/25/18 21:01 07/25/18 22:00 Temperature 98.1 F Pulse Rate 98 H 91 H 83 Respiratory Rate 17 17 18 Blood Pressure 137/65 122/59 L 128/68 Pulse Oximetry 98 98 98 07/26/18 00:00 07/26/18 04:00 07/26/18 07:58 Temperature 98.0 F 98.0 F Pulse Rate 60 77 Respiratory Rate 18 17 15 Blood Pressure 138/58 L 135/63 Pulse Oximetry 97 97 07/26/18 08:00 Temperature 97.9 F Pulse Rate 73 Respiratory Rate 20 Blood Pressure 136/68 Pulse Oximetry 96 Intake & Output 07/25/18 07/26/18 07/26/18 18:59 06:59 18:59 Intake Total 600 / 600 1100 / 1100 1000 / 1000 Output Total 250 / 250 Balance 350 / 350 1100 / 1100 1000 / 1000 Weight 95.254 kg 100.4 kg Intake: IV 600 / 600 1100 / 1100 1000 / 1000 NS Inj 1,000 ML @ 100 mls/hr IV 1000 / 1000 1000 / 1000 .CONT .Q10H ANASTACIO Rx#:[id number] Magnesium Sulfate 1 gm/D5W 100 100 / 100 ml Premix 100 ML @ 100 mls/hr IV.SIG ONCE ONE Rx#:[id number] KCl 20 mEq Premix Inj 20 meq In 100 / 100 100 ml @ 50 mls/hr IV.SIG ONCE ONE Rx#:[id number] NS Inj 500 ML @ Wide Open IV. 500 / 500 SIG BOLUS [facility] Rx#:[id number] Output: Emesis 250 / 250 Other: # Voids 3 Date of Last Bowel Movement 07/25/18 07/25/18 # Emeses 1 - Constitutional no acute distress - Routine Respiratory Exam Present: CTA bilaterally - Routine Cardiovascular Exam Present: RRR - Routine Abdominal Exam Present: soft - Routine Extremities Exam Comments: no pedal edema. - Routine Neurological Exam Present: alert, oriented X3 Results - Labs CBC & Chem 7: 07/26/18 05:40 07/26/18 05:40 Laboratory Results - last 24 hr 07/25/18 07/25/18 07/25/18 11:32 11:32 15:30 WBC 9.0 RBC 4.70 Hgb 14.5 Hct 41.5 MCV 88.2 MCH 30.9 MCHC 35.0 RDW 16.9 Plt Count 208 MPV 9.0 Neut % (Auto) 79.6 H Lymph % (Auto) 10.8 [place] % (Auto) 8.2 H Eos % (Auto) 0.8 Baso % (Auto) 0.6 Neut # (Auto) 7.2 Lymph # (Auto) 1.0 [place] # (Auto) 0.7 Eos # (Auto) 0.1 Baso # (Auto) 0.1 WBC Differential . Differential Comment Auto diff final Sodium 136 Potassium 3.2 L Chloride 100 Carbon Dioxide 22.8 Anion Gap 13 BUN 49 H Creatinine 5.25 H Estimated GFR 9 L Random Glucose 337 H Calcium 10.3 H Phosphorus 1.6 L Magnesium 1.5 Total Bilirubin 0.4 AST 62 H ALT 79 H Alkaline Phosphatase 197 H Total Creatine Kinase 40 Troponin I 0.04 Total Protein 7.6 Albumin 3.7 Lipase 169 Free T4 07/25/18 07/26/18 07/26/18 21:00 05:40 05:40 WBC 8.7 RBC 4.05 Hgb 12.5 D Hct 36.1 MCV 89.1 MCH 30.8 MCHC 34.5 RDW 17.0 Plt Count 183 MPV 9.5 Neut % (Auto) 64.2 Lymph % (Auto) 24.1 [place] % (Auto) 9.6 H Eos % (Auto) 1.5 Baso % (Auto) 0.6 Neut # (Auto) 5.6 Lymph # (Auto) 2.1 [place] # (Auto) 0.8 Eos # (Auto) 0.1 Baso # (Auto) 0.1 WBC Differential . Differential Comment Auto diff final Sodium 140 Potassium 3.3 L Chloride 107 Carbon Dioxide 20.3 L Anion Gap 13 BUN 46 H Creatinine 4.54 H Estimated GFR 10 L Random Glucose 225 H D Calcium 9.2 D Phosphorus 3.9 D Magnesium 1.8 Total Bilirubin 0.4 AST 32 ALT 46 Alkaline Phosphatase 134 H Total Creatine Kinase 22 L Troponin I 0.04 Total Protein 6.1 L D Albumin 2.6 L D Lipase Free T4 0.66 L - Imaging Impressions Abdomen/Pelvis CT 07/25/18 13:31 CONCLUSION: 1. No evidence of bowel obstruction. Peritoneal catheter in good position coiled within the pelvis. Clips suggesting cholecystectomy. Dense atherosclerotic disease in the coronary vessels. 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 Assessment and Plan - Assessment (1) Hypothyroidism Code(s): E03.9 - Hypothyroidism, unspecified Status: Chronic (2) Intractable cyclical vomiting syndrome Code(s): G43.A1 - Cyclical vomiting, intractable Status: Acute (3) Acute hypokalemia Code(s): E87.6 - Hypokalemia Status: Acute (4) Gastroenteritis Code(s): K52.9 - Noninfective gastroenteritis and colitis, unspecified Status : Acute (5) Hypertension, uncontrolled Code(s): I10 - Essential (primary) hypertension Status: Chronic (6) Intractable vomiting with nausea Code(s): R11.2 - Nausea with vomiting, unspecified Status: Acute - Plan Uncontrolled hypertension due to nausea and vomiting- now has much improved. -resume home meds. Nausea and vomiting persistent and intractable- resolved. Gastroenteritis- has resolved. -Possibly secondary to marijuana use with cyclic vomiting syndrome -CAT scan did not show any acute pathology -start on diet and monitor. End-stage renal disease on peritoneal dialysis We will defer dialysis to nephrology Hypothyroidism Resumed Synthroid Diabetes start on accu-check with SSI Tobacco abuse recommend smoking cessation NicoDerm patch as needed Marijuana abuse Recommend cessation Can cause cyclic vomiting syndrome History of coronary artery disease with stenting Continue on aspirin and Plavix History of hyperlipidemia had previously been on Lipitor Discussed Condition With: the patient and . Discharge Planning: dc home later this afternoon if tolerates the diet. see med list. f/u; pcp and nephrology. d/w the patient and . (6) Intractable vomiting with nausea Qualifiers: Vomiting type: unspecified Qualified Code(s): R11.2 - Nausea with vomiting, unspecified
--- NOTE | 2018-07-26 10:15 | P.DS ---
Date of admission: 07/25/18 13:35 Primary care physician: Shorty Balderas MD Brief History from admission: Patient is a 53-year-old female who comes in complaining of nausea and vomiting and diarrhea. Patient has an extensive past medical history including hypertension, COPD, hyperlipidemia, coronary artery disease, end- stage renal disease on peritoneal dialysis, and hypothyroidism. Patient states that she been having nausea and vomiting and diarrhea and abdominal cramping for the past 2 days. States it gets got better yesterday and got worse again this morning. Patient states that she had abdominal cramping only with vomiting. Denies any abdominal pain now. States she is she has been unable to keep any medications down this morning of note patient also smoked some marijuana last night possible cyclic vomiting syndrome from marijuana. Family history is positive for hypertension DS: Diagnosis - Discharge Diagnosis (1) Hypothyroidism Status: Chronic (2) Intractable cyclical vomiting syndrome Status: Acute (3) Acute hypokalemia Status: Acute (4) Gastroenteritis Status: Acute (5) Hypertension, uncontrolled Status: Chronic (6) Intractable vomiting with nausea Status: Acute DS: Summary Hospital Course: Uncontrolled hypertension due to nausea and vomiting- now has much improved. -resume home meds. Nausea and vomiting persistent and intractable- resolved. Gastroenteritis- has resolved. -Possibly secondary to marijuana use with cyclic vomiting syndrome -CAT scan did not show any acute pathology -start on diet and monitor. End-stage renal disease on peritoneal dialysis We will defer dialysis to nephrology Hypothyroidism Resumed Synthroid Tobacco abuse recommend smoking cessation NicoDerm patch as needed Marijuana abuse Recommend cessation Can cause cyclic vomiting syndrome History of coronary artery disease with stenting Continue on aspirin and Plavix History of hyperlipidemia had previously been on Lipitor - Time Spent with Patient Total time spent providing and/or coordinating discharge services: Less than 30 minutes Exam Vital signs: Vital Signs 07/25/18 10:48 07/25/18 11:02 07/25/18 11:58 Temperature 97.3 F L Pulse Rate 76 87 78 Respiratory Rate 18 18 Blood Pressure 241/111 H 245/109 H 229/109 H Pulse Oximetry 100 97 07/25/18 13:33 07/25/18 13:38 07/25/18 13:42 Temperature Pulse Rate 76 91 H Respiratory Rate 18 Blood Pressure 187/88 H 230/102 H Pulse Oximetry 97 97 07/25/18 16:52 07/25/18 17:05 07/25/18 17:32 Temperature Pulse Rate 80 78 78 Respiratory Rate 18 18 Blood Pressure 211/98 H 193/95 H 184/88 H Pulse Oximetry 07/25/18 20:00 07/25/18 20:04 07/25/18 20:28 Temperature Pulse Rate 77 89 98 H Respiratory Rate 17 20 Blood Pressure 193/91 H 189/88 H Pulse Oximetry 98 98 07/25/18 20:40 07/25/18 21:01 07/25/18 22:00 Temperature 98.1 F Pulse Rate 98 H 91 H 83 Respiratory Rate 17 17 18 Blood Pressure 137/65 122/59 L 128/68 Pulse Oximetry 98 98 98 07/26/18 00:00 07/26/18 04:00 07/26/18 07:58 Temperature 98.0 F 98.0 F Pulse Rate 60 77 Respiratory Rate 18 17 15 Blood Pressure 138/58 L 135/63 Pulse Oximetry 97 97 07/26/18 08:00 Temperature 97.9 F Pulse Rate 73 Respiratory Rate 20 Blood Pressure 136/68 Pulse Oximetry 96 Intake & Output 07/25/18 07/26/18 07/26/18 18:59 06:59 18:59 Intake Total 600 / 600 1100 / 1100 1000 / 1000 Output Total 250 / 250 Balance 350 / 350 1100 / 1100 1000 / 1000 Weight 95.254 kg 100.4 kg Intake: IV 600 / 600 1100 / 1100 1000 / 1000 NS Inj 1,000 ML @ 100 mls/hr IV 1000 / 1000 1000 / 1000 .CONT .Q10H [facility] Rx#:[id number] Magnesium Sulfate 1 gm/D5W 100 100 / 100 ml Premix 100 ML @ 100 mls/hr IV.SIG ONCE ONE Rx#:[id number] KCl 20 mEq Premix Inj 20 meq In 100 / 100 100 ml @ 50 mls/hr IV.SIG ONCE ONE Rx#:[id number] NS Inj 500 ML @ Wide Open IV. 500 / 500 SIG BOLUS [facility] Rx#:[id number] Output: Emesis 250 / 250 Other: # Voids 3 Date of Last Bowel Movement 07/25/18 07/25/18 # Emeses 1 - Constitutional no acute distress - Routine Respiratory Exam Present: CTA bilaterally - Routine Cardiovascular Exam Present: RRR - Routine Abdominal Exam Present: soft - Routine Extremities Exam Comments: no pedal edema. - Routine Neurological Exam Present: alert, oriented X3 Results Procedures completed during hospitalization: none. Labs on day of discharge: Labs from last 24 hours 07/26/18 07/26/18 07/26/18 05:40 05:40 05:40 WBC 8.7 RBC 4.05 Hgb 12.5 D Hct 36.1 MCV 89.1 MCH 30.8 MCHC 34.5 RDW 17.0 Plt Count 183 MPV 9.5 Neut % (Auto) 64.2 Lymph % (Auto) 24.1 [place] % (Auto) 9.6 H Eos % (Auto) 1.5 Baso % (Auto) 0.6 Neut # (Auto) 5.6 Lymph # (Auto) 2.1 [place] # (Auto) 0.8 Eos # (Auto) 0.1 Baso # (Auto) 0.1 WBC Differential . Differential Comment Auto diff final Sodium 140 Potassium 3.3 L Chloride 107 Carbon Dioxide 20.3 L Anion Gap 13 BUN 46 H Creatinine 4.54 H Estimated GFR 10 L Random Glucose 225 H D Hemoglobin A1c Pending Calcium 9.2 D Phosphorus 3.9 D Magnesium 1.8 Total Bilirubin 0.4 AST 32 ALT 46 Alkaline Phosphatase 134 H Total Creatine Kinase Troponin I Total Protein 6.1 L D Albumin 2.6 L D Lipase Free T4 0.66 L 07/25/18 07/25/18 07/25/18 21:00 15:30 11:32 WBC RBC Hgb Hct MCV MCH MCHC RDW Plt Count MPV Neut % (Auto) Lymph % (Auto) [place] % (Auto) Eos % (Auto) Baso % (Auto) Neut # (Auto) Lymph # (Auto) [place] # (Auto) Eos # (Auto) Baso # (Auto) WBC Differential Differential Comment Sodium 136 Potassium 3.2 L Chloride 100 Carbon Dioxide 22.8 Anion Gap 13 BUN 49 H Creatinine 5.25 H Estimated GFR 9 L Random Glucose 337 H Hemoglobin A1c Calcium 10.3 H Phosphorus 1.6 L Magnesium 1.5 Total Bilirubin 0.4 AST 62 H ALT 79 H Alkaline Phosphatase 197 H Total Creatine Kinase 22 L 40 Troponin I 0.04 0.04 Total Protein 7.6 Albumin 3.7 Lipase 169 Free T4 07/25/18 11:32 WBC 9.0 RBC 4.70 Hgb 14.5 Hct 41.5 MCV 88.2 MCH 30.9 MCHC 35.0 RDW 16.9 Plt Count 208 MPV 9.0 Neut % (Auto) 79.6 H Lymph % (Auto) 10.8 [place] % (Auto) 8.2 H Eos % (Auto) 0.8 Baso % (Auto) 0.6 Neut # (Auto) 7.2 Lymph # (Auto) 1.0 [place] # (Auto) 0.7 Eos # (Auto) 0.1 Baso # (Auto) 0.1 WBC Differential . Differential Comment Auto diff final Sodium Potassium Chloride Carbon Dioxide Anion Gap BUN Creatinine Estimated GFR Random Glucose Hemoglobin A1c Calcium Phosphorus Magnesium Total Bilirubin AST ALT Alkaline Phosphatase Total Creatine Kinase Troponin I Total Protein Albumin Lipase Free T4 - Impressions ITS Impressions Abdomen/Pelvis CT 07/25/18 13:31 CONCLUSION: 1. No evidence of bowel obstruction. Peritoneal catheter in good position coiled within the pelvis. Clips suggesting cholecystectomy. Dense atherosclerotic disease in the coronary vessels. 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 Discharge Plan - Discharge Disposition Patient Disposition: 01 Discharge Home - Discharge Condition Condition: Good - Discharge Order Discharge Orders: Discharge Order (Routine); Ordered 07/26/18 Ordered By: Warren Perry - Physicians Team Primary Care Provider: Shorty Balderas Attending Provider: Warren Perry Other Providers: Qasim Burroughs MD ; Cierra Reese MD
[2018-07-26] MEDS ORDERED: Dextrose 50% in Water 50 ML Vial IV.PUSH PRN (10:22)
--- NOTE | 2018-07-26 11:50 | P.CONGI ---
History of Present Illness Consult date: 07/26/18 Consult reason: Persistent nausea and vomiting, diarrhea Chief complaint: Vomitting/diarrhea History of Present Illness: This is a 53-year-old female who came to the hospital on 07/25/2018 with complaints of uncontrolled nausea vomiting and diarrhea. Onset of symptoms was approximately 24 hours before admission and patient also notes she has been around sick children who have come back into the home after being out of town with some of the sign symptoms of nausea vomiting and diarrhea. Patient is a known renal failure patient and is on peritoneal dialysis daily in the home since April 2018. Patient states no family history of colon cancer and does recall EGD colonoscopy in March 2018 which showed gastritis, esophagitis, and colon polyp. Patient states stools were brown watery 4-5 times a day but has since ceased. CT scan 07/25/18 showed no bowel obstruction ,previous cholecystectomy and diverticulum noted in the duodenum. Currently patient is awake, alert, and denies any further symptoms of her nausea and vomiting. Current labs show WBC count 8.7, hemoglobin 12.5 hematocrit 36, alkaline phosphatase 134 AST 32 ALT 46. Patient also notes a history of some constipation, but states her symptoms are functional. Review of Systems All other systems reviewed negative except as stated in HPI PMFSH - History History Provided By: Patient - Medical History Medical History: Medical History (Last Updated 07/25/18 @ 16:36 by Monster Liu DO) COPD (chronic obstructive pulmonary disease) Coronary artery disease End-stage renal disease on peritoneal dialysis History of myocardial infarction Hyperlipidemia Hypertension Hypothyroidism Marijuana use Peritoneal dialysis catheter in place Tobacco abuse - Surgical History Surgical History: Surgical History (Last Updated 07/25/18 @ 16:35 by Monster Liu DO) H/O heart artery stent History of appendectomy History of cholecystectomy - Family History Family History: Family History (Last Updated 07/25/18 @ 16:34 by Monster Liu DO) Other Family history of hypertension - Tobacco History Tobacco Use In Past 30 Days: Yes (marijuana ,last used last night) Smoking Status: Smoker, status unknown - Alcohol History How Often Do You Have a Drink Containing Alcohol: Never - Substance Use History Substance History: No History of Abuse, Active Abuse - Substance Use Type Marijuana Route Used: Inhalation Last Used: 07/24/18 Reason for Use: Get High - Travel History History of Recent Travel: No Recent Travel in the [place] Within the Last 8 Weeks: No Recent Travel Out of the Country Within the Last 8 Weeks: No - Immunization History Tetanus Immunization: Unsure Medications and Allergies Active Medications: Active Medications Acetaminophen (Tylenol) 650 mg PO Q4H PRN PRN Reason: Temp > 100.4 Al Hydroxide/Mg Hydroxide (Milk Of Magnesia Liq) 30 ml PO Q12H PRN PRN Reason: Mild Constipation Bisacodyl (Dulcolax Supp) 10 mg RECTAL DAILY PRN PRN Reason: SEVERE CONSITIPATION Carvedilol (Coreg) 12.5 mg PO BID [facility] Last Admin: 07/25/18 23:11 Dose: Not Given Clonidine HCl (Catapres) 0.1 mg PO TID [facility] Last Admin: 07/26/18 10:34 Dose: 0.1 mg Clonidine HCl (Catapres) 0.1 mg PO Q6H PRN PRN Reason: HYPERTENSION Dextrose (D50w Vial) 50 ml IV.PUSH UNSCH PRN PRN Reason: PER HYPOGLYCEMIA PROTOCOL Glucagon (Glucagon Inj) 1 mg OTHER PRN PRN PRN Reason: for Hypoglycemia Protocol Heparin Sodium (Porcine) (Heparin Inj) 1,000 units OTHER WITH DIALYSIS PRN PRN Reason: SEE LABEL COMMENTS Hydralazine HCl (Apresoline) 50 mg PO Q8H PRN PRN Reason: SBP>180, DBP>95 Last Admin: 07/25/18 18:41 Dose: 50 mg Sodium Chloride (Ns Inj) 500 mls @ 0 mls/hr IV.SIG BOLUS [facility] Last Infusion: 07/25/18 15:46 Dose: Infused Sodium Chloride (Ns Inj) 1,000 mls @ 100 mls/hr IV.CONT .Q10H [facility] Last Infusion: 07/26/18 09:55 Dose: Infused Potassium Chloride (Kcl 20 Meq Premix Inj) 20 meq in 100 mls @ 50 mls/hr IV.SIG ONCE ONE Stop: 07/26/18 11:59 Last Admin: 07/26/18 10:17 Dose: 50 mls/hr Insulin Aspart (Novolog Insulin Correctional Sugar Inj) 0 unit SQ ACHS [facility]; Protocol Lactulose (Lactulose Liq) 30 ml PO DAILY PRN PRN Reason: SEVERE CONSITIPATION Levothyroxine Sodium (Synthroid) 50 mcg PO DAILY@0600 [facility] Last Admin: 07/26/18 05:09 Dose: Not Given Lorazepam (Ativan Inj) 1 mg IV.PUSH Q4H PRN PRN Reason: NAUSEA OR VOMITING Last Admin: 07/25/18 16:43 Dose: 1 mg Metoclopramide HCl (Reglan Inj) 10 mg IV.PUSH Q6HR PRN; Protocol PRN Reason: NAUSEA OR VOMITING Morphine Sulfate (Morphine Inj) 2 mg IV.PUSH Q3H PRN PRN Reason: PAIN 3-5; IF UABLE TO TAKE PO Morphine Sulfate (Morphine Inj) 4 mg IV.PUSH Q3H PRN PRN Reason: PAIN 6-10;IF UNABLE TO TAKE PO Morphine Sulfate (Morphine Inj) 4 mg IV.PUSH Q3H PRN PRN Reason: BREAKTHROUGH PAIN Naloxone HCl (Narcan Inj) 0.4 mg IV.PUSH UNSCH PRN PRN Reason: SEE LABEL COMMENTS Oxycodone HCl (Roxicodone) 5 mg PO Q4H PRN PRN Reason: PAIN SCALE 3 TO 5 Oxycodone HCl (Roxicodone) 10 mg PO Q4H PRN PRN Reason: PAIN SCALE 6 TO 10 Pantoprazole Sodium (Protonix Inj) 40 mg IV.PUSH Q12H [facility] Last Admin: 07/26/18 05:15 Dose: 40 mg Patch Removal (Remove Old Patch) 1 each T-DERMAL Q7D [facility] Last Admin: 07/25/18 19:54 Dose: 1 each Senna/Docusate Sodium (Gin-Colace) 1 tab PO BID [facility] Last Admin: 07/26/18 08:23 Dose: Not Given Sennosides (Senokot) 17.2 mg PO Q12H PRN PRN Reason: Moderate Constipation Sodium Chloride (Ns Flush) 10 ml IV.FLUSH UNSCH PRN PRN Reason: SEE LABEL COMMENTS Vitamin B Complex/Vit C/Folic Acid (Nephrocaps) 1 tab PO DAILY [facility] Allergies Allergy/AdvReac Type Severity Reaction Status Date / Time cephalexin Allergy Severe Abdominal Verified 07/25/18 11:03 Pain Home Medications Medication Instructions Recorded Confirmed Type carvedilol [Coreg] 12.5 mg PO BID 07/25/18 07/25/18 History clonidine HCl 0.1 mg PO TID 07/25/18 07/25/18 History levothyroxine 50 mcg PO DAILY 07/25/18 07/25/18 History vit B comp no.0-anuyt-D-biotin 1 tab PO DAILY 07/25/18 07/25/18 History [[employer]-[facility] Rx] Exam Vital signs: Vital Signs 07/25/18 11:58 07/25/18 13:33 07/25/18 13:38 Temperature Pulse Rate 78 76 91 H Respiratory Rate 18 18 Blood Pressure 229/109 H 187/88 H 230/102 H Pulse Oximetry 97 97 07/25/18 13:42 07/25/18 16:52 07/25/18 17:05 Temperature Pulse Rate 80 78 Respiratory Rate 18 18 Blood Pressure 211/98 H 193/95 H Pulse Oximetry 97 07/25/18 17:32 07/25/18 20:00 07/25/18 20:04 Temperature Pulse Rate 78 77 89 Respiratory Rate 17 Blood Pressure 184/88 H 193/91 H Pulse Oximetry 98 07/25/18 20:28 07/25/18 20:40 07/25/18 21:01 Temperature Pulse Rate 98 H 98 H 91 H Respiratory Rate 20 17 17 Blood Pressure 189/88 H 137/65 122/59 L Pulse Oximetry 98 98 98 07/25/18 22:00 07/26/18 00:00 07/26/18 04:00 Temperature 98.1 F 98.0 F 98.0 F Pulse Rate 83 60 77 Respiratory Rate 18 18 17 Blood Pressure 128/68 138/58 L 135/63 Pulse Oximetry 98 97 97 07/26/18 07:58 07/26/18 08:00 07/26/18 11:34 Temperature 97.9 F Pulse Rate 73 Respiratory Rate 15 20 Blood Pressure 136/68 Pulse Oximetry 96 98 Intake & Output 07/25/18 07/26/18 07/26/18 18:59 06:59 18:59 Intake Total 600 / 600 1100 / 1100 1000 / 1000 Output Total 250 / 250 Balance 350 / 350 1100 / 1100 1000 / 1000 Weight 95.254 kg 100.4 kg Intake: IV 600 / 600 1100 / 1100 1000 / 1000 NS Inj 1,000 ML @ 100 mls/hr IV 1000 / 1000 1000 / 1000 .CONT .Q10H [facility] Rx#:[id number] Magnesium Sulfate 1 gm/D5W 100 100 / 100 ml Premix 100 ML @ 100 mls/hr IV.SIG ONCE ONE Rx#:[id number] KCl 20 mEq Premix Inj 20 meq In 100 / 100 100 ml @ 50 mls/hr IV.SIG ONCE ONE Rx#:[id number] NS Inj 500 ML @ Wide Open IV. 500 / 500 SIG BOLUS [facility] Rx#:[id number] Output: Emesis 250 / 250 Other: # Voids 3 Date of Last Bowel Movement 07/25/18 07/25/18 # Emeses 1 - Constitutional no acute distress, obese - Routine HEENT Exam Head: Present: normocephalic ENT: Present: mucous membranes dry - Routine Respiratory Exam Present: accessory muscle use (Even, unlabored) - Routine Cardiovascular Exam Present: S1, S2 - Routine Abdominal Exam Present: soft (Round, no obvious abdominal pain, bowel sounds active) - Routine Skin Exam Present: dry, pallor (Answering simple questions) - Routine Neurological Exam Present: alert Results - Labs CBC & Chem 7: 07/26/18 05:40 07/26/18 05:40 Labs: Laboratory Results - last 24 hr 07/25/18 07/25/18 07/25/18 11:32 11:32 15:30 WBC 9.0 RBC 4.70 Hgb 14.5 Hct 41.5 MCV 88.2 MCH 30.9 MCHC 35.0 RDW 16.9 Plt Count 208 MPV 9.0 Neut % (Auto) 79.6 H Lymph % (Auto) 10.8 Menard % (Auto) 8.2 H Eos % (Auto) 0.8 Baso % (Auto) 0.6 Neut # (Auto) 7.2 Lymph # (Auto) 1.0 Menard # (Auto) 0.7 Eos # (Auto) 0.1 Baso # (Auto) 0.1 WBC Differential . Differential Comment Auto diff final Sodium 136 Potassium 3.2 L Chloride 100 Carbon Dioxide 22.8 Anion Gap 13 BUN 49 H Creatinine 5.25 H Estimated GFR 9 L POC Glucose Random Glucose 337 H Calcium 10.3 H Phosphorus 1.6 L Magnesium 1.5 Total Bilirubin 0.4 AST 62 H ALT 79 H Alkaline Phosphatase 197 H Total Creatine Kinase 40 Troponin I 0.04 Total Protein 7.6 Albumin 3.7 Lipase 169 Free T4 07/25/18 07/26/18 07/26/18 21:00 05:40 05:40 WBC 8.7 RBC 4.05 Hgb 12.5 D Hct 36.1 MCV 89.1 MCH 30.8 MCHC 34.5 RDW 17.0 Plt Count 183 MPV 9.5 Neut % (Auto) 64.2 Lymph % (Auto) 24.1 Menard % (Auto) 9.6 H Eos % (Auto) 1.5 Baso % (Auto) 0.6 Neut # (Auto) 5.6 Lymph # (Auto) 2.1 Menard # (Auto) 0.8 Eos # (Auto) 0.1 Baso # (Auto) 0.1 WBC Differential . Differential Comment Auto diff final Sodium 140 Potassium 3.3 L Chloride 107 Carbon Dioxide 20.3 L Anion Gap 13 BUN 46 H Creatinine 4.54 H Estimated GFR 10 L POC Glucose Random Glucose 225 H D Calcium 9.2 D Phosphorus 3.9 D Magnesium 1.8 Total Bilirubin 0.4 AST 32 ALT 46 Alkaline Phosphatase 134 H Total Creatine Kinase 22 L Troponin I 0.04 Total Protein 6.1 L D Albumin 2.6 L D Lipase Free T4 0.66 L 07/26/18 11:01 WBC RBC Hgb Hct MCV MCH MCHC RDW Plt Count MPV Neut % (Auto) Lymph % (Auto) Menard % (Auto) Eos % (Auto) Baso % (Auto) Neut # (Auto) Lymph # (Auto) Menard # (Auto) Eos # (Auto) Baso # (Auto) WBC Differential Differential Comment Sodium Potassium Chloride Carbon Dioxide Anion Gap BUN Creatinine Estimated GFR POC Glucose 273 H Random Glucose Calcium Phosphorus Magnesium Total Bilirubin AST ALT Alkaline Phosphatase Total Creatine Kinase Troponin I Total Protein Albumin Lipase Free T4 - Imaging Impressions Abdomen/Pelvis CT 07/25/18 13:31 CONCLUSION: 1. No evidence of bowel obstruction. Peritoneal catheter in good position coiled within the pelvis. Clips suggesting cholecystectomy. Dense atherosclerotic disease in the coronary vessels. 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 Assessment and Plan (1) Gastroenteritis Status: Acute Code(s): K52.9 - Noninfective gastroenteritis and colitis, unspecified (2) Intractable vomiting with nausea Status: Acute Code(s): R11.2 - Nausea with vomiting, unspecified - Plan Gastroenteritis, initial symptoms of nausea vomiting, diarrhea. Notes at least 4-5 stools in 24 hour. Dark brown watery. Sick children in the home, recent trip out of town and came home with gastroenteritis symptoms 24 hours after patient's initial symptoms , now improved. History of end-stage renal disease and currently on peritoneal dialysis without any complications. Patient states low-grade fever 99.7 initially at home but current afebrile male History of constipation, functional, march 2018 EGD, Recent colonoscopy, polyp, EGD showed gastritis and esophagitis CT scan showed no bowel obstruction previous cholecystectomy, and diverticulum in the duodenum. Plan Diet as tolerated evaluate any further nausea or vomiting Stool studies checks if patient has more diarrhea today, C. difficile, O&P, WBC count, pathogens. Symptoms seem to be controlled now which could have been related to sick children in the home and gastroenteritis Needs hydration, push p.o. fluids Monitor for any fever GI will see on an outpatient basis if patient has repeat symptoms, supportive care given to patient Patient was seen per myself and Dr. Burroughs, note was written on his behalf (2) Intractable vomiting with nausea Qualifiers: Vomiting type: unspecified Qualified Code(s): R11.2 - Nausea with vomiting, unspecified
[2018-07-26] MEDS ORDERED: Insulin NovoLOG Aspart Correctional Sugar Inj SQ SCH (12:00)
--- NOTE | 2018-07-26 17:02 | ECG ---
Date Performed: 07/25/2018 Time Performed: 11:01:32 PTAGE: 53 years EKG: Sinus rhythm WITH SINUS ARRHYTHMIA LOW QRS VOLTAGE IN EXTREMITY LEADS MINIMAL ST DEPRESSION Since previous tracin g, no significant change noted BORDERLINE ECG PREVIOUS TRACING : 04/03/2018 02.33.04 DOCTOR: Landon Cason Interpretating Date/Time 07/26/2018 17:01:43
[2018-07-26 19:15] LABS: Hemoglobin A1c 7.3 % (4.3-6.0)
== END 2018-07-26 13:59 | disposition home or self-care (01) ==
LOC: NEDA 10:38 → NEPC 10:38 → NEDH 19:49 → N05 21:14
PROVIDERS: ADMIT Internal Medicine; ATTEND Internal Medicine